=== PATIENT | female | born 1975 | race Caucasian/White ===

== ENCOUNTER 2016-06-19 19:13 | Inpatient (IN) | payer OTHER ==
[2016-06-19] MEDS ORDERED: SODIUM CHLORIDE 0.9% 1,000 ML IV STA (19:38)
[2016-06-19] MEDS ORDERED: ONDANSETRON 4 MG/2 ML VIAL IVP STA (19:38)
[2016-06-19] MEDS ORDERED: HYDROmorphone 1 MG/ML 1 ML SYRINGE IVP STA ×2 (19:38→23:02)
--- NOTE | 2016-06-19 20:00 | ED ---
Abdominal Pain HPI - General Source: patient, RN notes reviewed Mode of arrival: ambulatory Limitations: no limitations <Jade Cee - Last Filed: 06/19/16 22:34> <Roman Solano - Last Filed: 06/19/16 23:14> - General Chief Complaint: Abdominal Pain Stated Complaint: Abd Pain/Vomiting Time Seen by Provider: 06/19/16 19:29 - History of Present Illness Initial Comments: Patient is a 40-year-old female with chief complaint of left sided abdominal pain for approximately 1 evening one episode of vomiting. Patient states that she has had one episode of vomiting earlier today. Patient also reports that she's been battling bronchitis for the past 3 weeks. She sates that she also was diagnosed with a urinary tract infection and proximally 2 weeks ago and is currently placed on Macrobid. Patient reports that she has had a nonproductive cough. She also reports that she is concerned she may have a kidney stones the left-sided pain. Patient has a past medical history significant for dental degenerative disc disease, type 2 diabetes management insulin. Patient reports that her blood sugars have been elevated. (Jade Cee) - Related Data Home Medications Medication Instructions Recorded Confirmed Insulin Regular [humuLIN R] See Protocol SQ-PUMP CONTINUOUS 02/27/14 06/19/16 metFORMIN HCL 1,000 mg PO BID 02/27/14 06/19/16 Morphine Sulfate ER [Ms Contin] 100 mg PO BID 07/14/15 06/19/16 Morphine Sulfate Ir [MSIR] 15 mg PO BID 07/14/15 06/19/16 Morphine Sulfate [Morphine Sulfate] 30 mg PO BID 07/14/15 06/19/16 Montelukast [Singulair] 10 mg PO HS PRN 10/05/15 06/19/16 Nitrofurantoin Monohyd/M-Cryst 100 mg PO BID 06/19/16 06/19/16 [Macrobid] Previous Rx's Medication Instructions Recorded Azithromycin [Zithromax] 250 mg PO DIRECTED #6 tab 06/19/16 Allergies Allergy/AdvReac Type Severity Reaction Status Date / Time albuterol Allergy Unknown Verified 06/19/16 19:51 Cephalosporins Allergy Unknown Verified 06/19/16 19:51 cortisone [Cortisone] Allergy Unknown Verified 06/19/16 19:51 diphenhydramine HCl Allergy Anaphylaxis Verified 06/19/16 19:51 [From Benadryl] doxycycline Allergy Unknown Verified 06/19/16 19:51 Penicillins Allergy Unknown Verified 06/19/16 19:51 Quinolones Allergy Unknown Verified 06/19/16 19:51 Sulfa (Sulfonamide Allergy Unknown Verified 06/19/16 19:51 Antibiotics) Review of Systems ROS Other: All systems not noted in ROS Statement are negative. <Christa Ceeily - Last Filed: 06/19/16 22:34> ROS Other: All systems not noted in ROS Statement are negative. <Roman Solano - Last Filed: 06/19/16 23:14> ROS Statement: Those systems with pertinent positive or pertinent negative responses have been documented in the HPI. Past Medical History Past Medical History: Diabetes Mellitus, Fibromyalgia, Hypertension Additional Past Medical History / Comment(s): DEGENERATIVE DISC DISEASE kidney stones obesity History of Any Multi-Drug Resistant Organisms: MRSA Date of last positivie culture/infection: 2004 MDRO Source:: STOMACH Past Surgical History: Cholecystectomy, Hernia Repair Additional Past Surgical History / Comment(s): CATARACT SURGERY kidne stents Past Psychological History: Anxiety Smoking Status: Never smoker Past Alcohol Use History: None Reported Past Drug Use History: None Reported <Christa Ceeily - Last Filed: 06/19/16 22:34> General Exam Limitations: no limitations General appearance: alert, in no apparent distress Head exam: Present: atraumatic, normocephalic, normal inspection Eye exam: Present: normal appearance, PERRL, EOMI. Absent: scleral icterus, conjunctival injection, periorbital swelling ENT exam: Present: normal exam, mucous membranes moist Neck exam: Present: normal inspection. Absent: tenderness, meningismus, lymphadenopathy Respiratory exam: Present: normal lung sounds bilaterally. Absent: respiratory distress, wheezes, rales, rhonchi, stridor Cardiovascular Exam: Present: regular rate, normal rhythm, normal heart sounds. Absent: systolic murmur, diastolic murmur, rubs, gallop, clicks GI/Abdominal exam: Present: soft, normal bowel sounds. Absent: distended, tenderness, guarding, rebound, rigid Extremities exam: Present: normal inspection, full ROM, normal capillary refill. Absent: tenderness, pedal edema, joint swelling, calf tenderness Back exam: Present: normal inspection Neurological exam: Present: alert, oriented X3, CN II-XII intact Psychiatric exam: Present: normal affect, normal mood Skin exam: Present: warm, dry, intact, normal color. Absent: rash <Jade Cee - Last Filed: 06/19/16 22:34> <Roman Solano - Last Filed: 06/19/16 23:14> - General Exam Comments Initial Comments: Patient is a 40-year-old female. She does appear to be in significant discomfort. (Jade Cee) Medical Decision Making - Lab Data Result diagrams: 06/19/16 20:05 06/19/16 20:05 - Radiology Data Radiology results: report reviewed <Jade Cee - Last Filed: 06/19/16 22:34> - Lab Data Result diagrams: 06/19/16 20:05 06/19/16 20:05 <Roman Solano - Last Filed: 06/19/16 23:14> - Medical Decision Making Medical decision-making. The patient's been on Macrodantin twice in the past month for urinary tract infection. Today she has discomfort when she coughs. CT suggests possible infiltrate posterior left lower lobe. Deep breathing and coughing has increased discomfort in that area. She describes discomfort on the left mid abdomen. CT of the abdomen was done and the radiologist's impression includes a small fatty umbilical hernia with a new fat stranding around the hernia. Cellulitic correlate for inflammation of the hernia or cellulitis. Examination of the area finds a pea-sized incarcerated entity probably the fat mentioned in the CAT scan. Also a foul-smelling odor which will be cultured. Patient will be admitted the hospital diagnosis of abdominal pain, probable incarcerated umbilical hernia, with cellulitis to the umbilicus. Dr. Solano Patient be placed on clindamycin because a cellulitis. I spoke with Dr. Olivas patient be admitted to his service, also spoke to on-call general surgeon Dr. Pablo concerning possible incarcerated umbilical hernia. Very (Roman Solano) - Lab Data Lab Results 06/19/16 06/19/16 06/19/16 Range/Units 20:05 20:05 21:58 WBC 4.6 (3.8-10.6) k/uL RBC 5.56 H (3.80-5.40) m/uL Hgb 15.5 (11.4-16.0) gm/dL Hct 46.6 H (34.0-46.0) % MCV 83.8 (80.0-100.0) fL MCH 27.9 (25.0-35.0) pg MCHC 33.3 (31.0-37.0) g/dL RDW 13.0 (11.5-15.5) % Plt Count 163 (150-450) k/uL Neutrophils % 62 % Lymphocytes % 28 % Monocytes % 7 % Eosinophils % 0 % Basophils % 1 % Neutrophils # 2.9 (1.3-7.7) k/uL Lymphocytes # 1.3 (1.0-4.8) k/uL Monocytes # 0.3 (0-1.0) k/uL Eosinophils # 0.0 (0-0.7) k/uL Basophils # 0.0 (0-0.2) k/uL Sodium 142 (137-145) mmol/L Potassium 4.1 (3.5-5.1) mmol/L Chloride 104 (98-107) mmol/L Carbon Dioxide 26 (22-30) mmol/L Anion Gap 12 mmol/L BUN 13 (7-17) mg/dL Creatinine 0.50 L (0.52-1.04) mg/dL Est GFR (MDRD) Af Amer >60 (>60 ml/min/1.73 sqM) Est GFR (MDRD) Non-Af >60 (>60 ml/min/1.73 sqM) Glucose 224 H (74-99) mg/dL Calcium 9.7 (8.4-10.2) mg/dL Total Bilirubin 0.8 (0.2-1.3) mg/dL AST 313 H (14-36) U/L ALT 177 H (9-52) U/L Alkaline Phosphatase 124 (38-126) U/L Total Protein 7.4 (6.3-8.2) g/dL Albumin 4.0 (3.5-5.0) g/dL Amylase 38 (30-110) U/L Lipase 74 (23-300) U/L Urine Color Dark Yellow Urine Appearance Clear (Clear) Urine pH 5.5 (5.0-8.0) Ur Specific [place] 1.048 H (1.001-1.035) Urine Protein 2+ H (Negative) Urine Glucose (UA) 3+ H (Negative) Urine Ketones Trace H (Negative) Urine Blood Negative (Negative) Urine Nitrate Negative (Negative) Urine Bilirubin Negative (Negative) Urine Urobilinogen <2.0 (<2.0) mg/dL Ur Leukocyte Esterase Negative (Negative) Urine RBC 8 H (0-5) /hpf Urine WBC 8 H (0-5) /hpf Ur Squamous Epith Cells 5 H (0-4) /hpf Urine Bacteria Rare H (None) /hpf Urine Mucus Occasional H (None) /hpf Urine Yeast (Budding) Rare H (None) /hpf - Radiology Data Chest x-ray shows chronic changes and possible chronic bronchitis/asthma. No acute process identified. UB shows there may be a few small air-fluid levels in the lower abdomen and pelvis which may refer like to regional ileus or enteritis. No evidence of bowel obstruction or free intraperitoneal air. There is evidence of scoliosis. (Jade Cee) Disposition Time of Disposition: 22:34 <Jade Cee - Last Filed: 06/19/16 22:34> <Roman Solano - Last Filed: 06/19/16 23:14> Clinical Impression: Pneumonia, Vomiting, Incarcerated umbilical hernia, Cellulitis of umbilicus Disposition: ADMITTED IP TO THIS HOSP Condition: Stable Prescriptions: Azithromycin [Zithromax] 250 mg PO DIRECTED #6 tab Referrals: Marleny Farrell DO [Primary Care Provider] - 1-2 days
--- NOTE | 2016-06-19 20:01 | XR ---
EXAMINATION TYPE: XR chest 2V DATE OF EXAM: 06/19/2016 7:56 PM COMPARISON: 02/09/2016 HISTORY: 40-year-old female with chest pain TECHNIQUE: PA and lateral views FINDINGS: Heart is upper limits of normal in size. Aorta and pulmonary vasculature within normal limits. Some p eribronchial cuffing and interstitial prominence appears unchanged. No consolidation or pleural effus ion. IMPRESSION: Chronic changes, possible chronic bronchitis/asthma. No acute process identified.
--- NOTE | 2016-06-19 20:03 | XR ---
EXAMINATION TYPE: XR KUB DATE OF EXAM: 06/19/2016 7:56 PM CLINICAL DATA: 40-year-old female with abdominal pain, nausea, vomiting, PHH COMPARISON: 12/11/2014 FINDINGS: No evidence for free intraperitoneal air. No dilated small bowel or differential air-fluid levels. A few small air-fluid levels may be present in the lower abdomen and pelvis. There is mild stool burden. Air extends distally into the rectum. Cholecystectomy clips. Rotary levoconvex scoliosis of the spine. IMPRESSION: 1. There may be a a few small air-fluid levels in the lower abdomen and pelvis which could reflect a mild regional ileus or enteritis. 2.No evidence of bowel obstruction or free intraperitoneal air. 3. Scoliosis.
[2016-06-19 20:17] LABS: Basophils % (A) 1 %; CH 28.5; CHCM 34.1; Eosinophils % (A) 0 %; HCT 46.6 % (34.0-46.0); HDW 2.86; HGB 15.5 gm/dL (11.4-16.0); Luc # (Auto) 0.11; Luc % (Auto) 2; Lymphocytes # (A) 1.3 k/uL (1.0-4.8); Lymphocytes % (A) 28 %; MCH 27.9 pg (25.0-35.0); MCHC 33.3 g/dL (31.0-37.0); MCV 83.8 fL (80.0-100.0); Mean Platelet Volume 8.5; Monocytes # (A) 0.3 k/uL (0-1.0); Monocytes % (A) 7 %; Neutrophils # (A) 2.9 k/uL (1.3-7.7); Neutrophils % (A) 62 %; RBC 5.56 m/uL (3.80-5.40); WBC 4.6 k/uL (3.8-10.6); WBC (Perox) 4.44
[2016-06-19 20:26] LABS: ALT 177 U/L (9-52); AST 313 U/L (14-36); Alkaline Phosphatase 124 U/L (38-126); Amylase 38 U/L (30-110); Anion Gap 12 mmol/L; Blood Urea Nitrogen 13 mg/dL (7-17); Calcium 9.7 mg/dL (8.4-10.2); Carbon Dioxide 26 mmol/L (22-30); Chloride 104 mmol/L (98-107); Glucose 224 mg/dL (74-99); Non-African American GFR(MDRD) >60 (>60 ml/min/1.73 sqM); Potassium 4.1 mmol/L (3.5-5.1); Sodium 142 mmol/L (137-145); Total Bilirubin 0.8 mg/dL (0.2-1.3); Total Protein 7.4 g/dL (6.3-8.2)
[2016-06-19] MEDS ORDERED: FAMOTIDINE 20 MG/2 ML VIAL IV STA (21:07)
[2016-06-19] MEDS: RX INFO: IV CONTRAST WAS GIVEN 1 EACH MISC MISCELLANE PRN (21:56)
--- NOTE | 2016-06-19 22:06 | CT ---
EXAMINATION TYPE: CT abdomen pelvis w con DATE OF EXAM: 06/19/2016 9:44 PM COMPARISON: 10/05/2015 HISTORY: 40-year-old female with lower abd pain TECHNIQUE: Contiguous axial scanning of the abdomen and pelvis following administration of 100 ml Omn ipaque 300 IV contrast. Coronal/sagittal reconstructions performed. CT DLP: 2275.40 mGycm Automated exposure control for dose reduction was used. FINDINGS: Heart is normal size without pericardial effusion. There is minimal nodular infiltrate in the posteri or right base, axial image 8. No pleural effusion. No focal liver lesion. Portal venous system is patent. No biliary ductal dilatation. Cholecystectomy clips are present. Right adrenal gland, kidneys, and pancreas appear within normal limits. There is splenomegaly at 18.5 cm, increased from prior with spleen measuring 17.0 cm. Lobulated mass involving the left adrenal gland continues to measure 3.2 cm. Stability suggests a cabrera ign entity such as an adrenal adenoma. No dilated small bowel, free fluid, or free air. Normal appendix. There is mild stool burden without pericolonic inflammatory change. No mesenteric or retroperitoneal lymphadenopathy. Redemonstrated small fatty umbilical hernia. There is new fat stranding around the hernia, axial imag e 75 through 80. Bladder is nondistended. Uterus and ovaries are visualized. No abnormal fluid collection in the pelvi s or pelvic lymphadenopathy seen. Bones: Mild degenerative changes along the superior aspect of the hips. Additional degenerative torres e lower lumbar spine. No osseous destructive process. IMPRESSION: 1. SMALL FATTY UMBILICAL HERNIA WITH NEW FAT STRANDING AROUND THE HERNIA. CORRELATE FOR INFLAMMATION OF THE HERNIA OR CELLULITIS. 2. SOME MILD NODULAR INFILTRATE AT THE POSTERIOR RIGHT BASE. CORRELATE FOR ANY INFECTIOUS SIGNS/SYMPT OMS TO EXCLUDE PNEUMONIA. 3. PROGRESSIVE SPLENOMEGALY (NOW MEASURING 18.5 CM VERSUS 17.0 CM ON 10/05/2015). 4. STABLE 3.2 CM LOBULATED MASS OF THE LEFT ADRENAL GLAND SUGGESTIVE OF AN ADRENAL ADENOMA.
[2016-06-19 22:15] LABS: Appearance,Urine Clear (Clear); Bacteria,Urine Rare /hpf; Bilirubin,Urine Negative (Negative); Glucose,Urine (UA) 3+ (Negative); Ketones,Urine Trace (Negative); Leukocyte Esterase,Urine Negative (Negative); Mucus,Urine Occasional /hpf; Nitrite,Urine Negative (Negative); PH, Urine 5.5 (5.0-8.0); Particle Count 7050; Protein,Urine 2+ (Negative); RBC,Urine 8 /hpf (0-5); Squamous Epithelial Cell,Urine 5 /hpf (0-4); UA Billing (MACRO vs. MICRO) MICRO; Urobilinogen,Urine <2.0 mg/dL (<2.0); WBC,Urine 8 /hpf (0-5)
[2016-06-19 22:19] LABS: Specific Gravity,Urine 1.048 (1.001-1.035)
[2016-06-19] MEDS ORDERED: MUPIROCIN 2% OINT 22 GM TUBE TOPICAL STA (22:59)
[2016-06-19] MEDS ORDERED: METOCLOPRAMIDE 5 MG/ML 2 ML VIAL IVP STA (23:02)
[2016-06-19] MEDS ORDERED: CLINDAMYCIN 600 MG in DEXTROSE 5% IN WATER 50 ML IVPB STA ×2 (23:03)
[2016-06-19] MEDS ORDERED: NALOXONE 0.4 MG/ML 1 ML VIAL IV PRN (23:14)
[2016-06-19] MEDS: SODIUM CHLORIDE 0.9% 1,000 ML IV SCH (23:27)
[2016-06-19] MEDS: MUPIROCIN CALCIUM 2% CREAM 15 GM TUBE TOPICAL SCH (23:32)
[2016-06-20 00:34] LABS: Glucose,Whole Blood 292 mg/dL (75-99)
[2016-06-20] MEDS: SODIUM CHLORIDE 0.9% 1,000 ML IV SCH ×5 (00:50→21:29)
[2016-06-20] MEDS ORDERED: INSPUCOR MISCELLANE PRN (01:02)
[2016-06-20 01:05] LABS: Hemoglobin A1C 11.7 % (4.2-6.1)
[2016-06-20] MEDS: HYDROmorphone 1 MG/ML 1 ML SYRINGE IV PRN ×8 (02:28→23:47)
[2016-06-20 07:21] LABS: Glucose,Whole Blood 167 mg/dL (75-99)
[2016-06-20] MEDS: CLINDAMYCIN 600 MG in DEXTROSE 5% IN WATER 50 ML IVPB SCH ×6 (08:19→23:45)
[2016-06-20] MEDS: ONDANSETRON 4 MG/2 ML VIAL IVP PRN ×3 (08:20→21:08)
[2016-06-20] MEDS: MUPIROCIN CALCIUM 2% CREAM 15 GM TUBE TOPICAL SCH ×3 (08:20→21:09)
[2016-06-20] MEDS ORDERED: INSULIN LISPRO (humaLOG) 300 UNIT/3 ML VIAL SQ SCH (09:00)
--- NOTE | 2016-06-20 11:24 | P.GSCN ---
History of Present Illness Consult date: 06/20/16 Reason for Consult: Surgical eval umbilical hernia Requesting physician: Alexis Patel History of present illness: 48-year-old female obese being seen at the request of the attending for a surgical eval for umbilical hernia. Patient presented to the emergency room on the day of admission with a chief complaint of having left-sided abdominal pain stated that it started one week prior. Patient stated that over the last month has been treated for "bladder infection" stated that she had 2 courses of antibiotic treatment. With no improvement Additionally the patient reports over the last several months has had unintentional weight loss which is concerned has lost 23 pounds without changing her caloric intake. Patient states has been no change in bowel habits Patient's past surgical history according to the patient has had hernia repair years ago is not certain of the surgeon or the timing has had reoccurring umbilical hernia repair a cholecystectomy in the past. Patient does have a significant past medical history of type 2 diabetes insulin requiring uncontrolled hemoglobin A1c 11.9 with the use of an insulin pump , morbid obesity BMI 48 multiple drug ALLERGIES and a recent treatment with 2 courses of antibiotics for a UTI 40-year-old female being seen with the surgeon at the bedside this morning currently is denying any shortness of breath dizziness lightheadedness chest pain. The abdominal wall no redness no cellulitis small umbilical hernia with redness noted around the site no drainage small palpable umbilical hernia with scant amount of drainage no older active bowel tones patient states no frequent stooling umbilical hernia is not incarcerated abdominal wall soft not distended Review of Systems Essentially unremarkable except as mentioned in the present illness Past Medical History Past Medical History: Diabetes Mellitus, Fibromyalgia, Hypertension Additional Past Medical History / Comment(s): DEGENERATIVE DISC DISEASE kidney stones obesity History of Any Multi-Drug Resistant Organisms: MRSA Year Discovered:: 2004 MDRO Source:: STOMACH Past Surgical History: Cholecystectomy, Hernia Repair Additional Past Surgical History / Comment(s): CATARACT SURGERY kidney stents Past Psychological History: Anxiety Smoking Status: Never smoker Past Alcohol Use History: None Reported Past Drug Use History: None Reported Medications and Allergies Home Medications Medication Instructions Recorded Confirmed Type Insulin Regular [humuLIN R] See Protocol SQ-PUMP CONTINUOUS 02/27/14 06/20/16 History metFORMIN HCL 1,000 mg PO BID 02/27/14 06/20/16 History Morphine Sulfate ER [Ms Contin] 100 mg PO BID 07/14/15 06/20/16 History Morphine Sulfate Ir [MSIR] 15 mg PO BID 07/14/15 06/20/16 History Morphine Sulfate [Morphine Sulfate] 30 mg PO BID 07/14/15 06/20/16 History Montelukast [Singulair] 10 mg PO HS PRN 10/05/15 06/20/16 History Nitrofurantoin Monohyd/M-Cryst 100 mg PO BID 06/19/16 06/20/16 History [Macrobid] Benzonatate [Tessalon Perles] 100 mg PO TID 06/20/16 06/20/16 History Allergies Allergy/AdvReac Type Severity Reaction Status Date / Time Cephalosporins Allergy Unknown Verified 06/20/16 00:42 cortisone [Cortisone] Allergy Unknown Verified 06/20/16 00:42 diphenhydramine HCl Allergy Anaphylaxis Verified 06/20/16 00:42 [From Benadryl] doxycycline Allergy Unknown Verified 06/20/16 00:42 Penicillins Allergy Unknown Verified 06/20/16 00:42 Quinolones Allergy Unknown Verified 06/20/16 00:42 Sulfa (Sulfonamide Allergy Unknown Verified 06/20/16 00:42 Antibiotics) Surgical - Exam Vital Signs Temp Pulse Resp BP Pulse Ox 97.6 F 90 18 120/82 95 06/19/16 19:22 06/19/16 19:22 06/19/16 19:22 06/19/16 19:22 06/19/16 19:22 GENERAL APPEARANCE: Morbidly obese 40-year-old female looking older than stated age sitting up in bed talkative alert, oriented, in no acute distress. VITAL SIGNS: Reviewed HEENT: Head is normocephalic and atraumatic. Pupils are equal and reactive. The nares are patent. Oropharynx is clear without lesions. NECK: Supple without lymphadenopathy. Traches midline. HEART: S1, S2. Regular rate and rhythm. No murmur noted denying chest pain LUNGS: No crackles or wheezes are heard. Essentially clear with adequate air movement bilaterally sats on room air 95% ABDOMEN: Soft, nontender, nondistended with good bowel sounds. No redness no evidence of cellulitis umbilical area small redness noted around the site scant amount of drainage noted umbilical shows no evidence of incarcerated hernia No peritoneal signs. No palpable organomegaly or masses. EXTREMITIES: Normal skin color and turgor. No cyanosis, rash, ulceration, clubbing or edema. Radial pedal pulses are 2/4 bilaterally. NEUROLOGICAL: No focal deficits. Strength and sensation are grossly intact. Results - Labs 06/19/16 20:05 06/19/16 20:05 Abnormal Lab Results - Last 24 Hours (Table) 06/20/16 06/20/16 Range/Units 00:31 07:17 POC Glucose (mg/dL) 292 H 167 H (75-99) mg/dL Assessment and Plan Plan: Impression Present on admission abdominal discomfort left lower quadrant with a CAT scan of the abdomen pelvis shows small fatty umbilical hernia with fat strain around the hernia likely inflammation Morbid obesity BMI 48.3 Type 2 diabetes uncontrolled insulin requiring with an insulin pump with a hemoglobin A1c 11.9 Per patient report a recent UTI reoccurring completed 2 courses of antibiotics Patient reports unintentional weight loss Mild cellulitis around the umbilicus resolving Plan Surgeon did discuss with the patient that at this time would avoid surgical intervention secondary to an increased risk in a patient who is a diabetic uncontrolled with an elevated hemoglobin A1c of 11.9 with a recent reoccurring bladder infections would recommend continuing to monitor Would recommend tightened glycemic control life educator to evaluate elevated hemoglobin A1c IV fluid for hydration Pain control DVT and GI prophylaxis continue to monitor surgical course Thank you for allowing us to participate in the surgical management of your patient will follow clinical course closely with recommendations The above dictated assessment and findings were discussed with dr perez Impression and the plan of care have been dictated as directed. Cinthya Gaffney nurse practitioner acting as a scribe for dr perez
[2016-06-20 11:53] LABS: Glucose,Whole Blood 240 mg/dL (75-99)
[2016-06-20 11:56] VITALS: BMI 48.3
[2016-06-20] MEDS ORDERED: ACETAMINOPHEN TAB 325 MG TAB PO PRN (13:11)
[2016-06-20] MEDS: INSULIN LISPRO (humaLOG) 300 UNIT/3 ML VIAL SQ PRN ×2 (13:46→17:43)
[2016-06-20] MEDS ORDERED: CLINDAMYCIN 600 MG in DEXTROSE 5% IN WATER 50 ML IVPB SCH ×2 (15:51)
[2016-06-20] MEDS: metFORMIN 500 MG TAB PO SCH (16:19)
[2016-06-20 17:43] LABS: Glucose,Whole Blood 142 mg/dL (75-99)
[2016-06-20] MEDS: INSULIN LISPRO (humaLOG) 300 UNIT/3 ML VIAL SQ SCH ×2 (17:43→21:10)
[2016-06-20 20:52] LABS: Glucose,Whole Blood 165 mg/dL (75-99)
[2016-06-20] MEDS: INSULIN GLARGINE 100 UNIT/ML 10 ML VIAL SQ SCH (21:09)
[2016-06-21 02:23] LABS: Glucose,Whole Blood 158 mg/dL (75-99)
[2016-06-21] MEDS: ONDANSETRON 4 MG/2 ML VIAL IVP PRN ×3 (04:43→23:54)
[2016-06-21] MEDS: HYDROmorphone 1 MG/ML 1 ML SYRINGE IV PRN ×7 (04:43→23:54)
--- NOTE | 2016-06-21 05:26 | HP ---
DATE OF ADMISSION: CHIEF COMPLAINT: Abdominal pain with nausea, vomiting. HISTORY OF PRESENT ILLNESS: Ms. Carter is a 40-year-old female with past medical history of diabetes mellitus insulin dependent, fibromyalgia, hypertension coming into the hospital complaining of left-sided abdominal pain along with vomiting for the past one day. The patient states that she has had 1 to 2 episodes of vomiting and it was associated with left upper quadrant abdominal pain. So she came into the hospital for further evaluation. The patient denies having any diarrhea ( ). The patient states she has been having cough with productive sputum for the past 3 weeks and also states that she was recently diagnosed with urinary tract infection and is currently on Macrobid. Patient's cough has been mostly dry, but produces sputum occasionally. Patient has type 2 diabetes mellitus, insulin dependent. She is on insulin pump. Patient also mentions that her blood sugars have been elevated. REVIEW OF SYSTEMS: CONSTITUTIONAL: Denies having any fevers, chills or rigors. RESPIRATORY: As per HPI. CARDIOVASCULAR: No chest pain or palpitations. GI: As per HPI. : The patient having dysuria, but currently asymptomatic. DRAPERY OPERATOR: Patient denies having any headaches, loss of consciousness or seizure-like activity. ENDOCRINE: Positive for diabetes mellitus. MUSCULOSKELETAL: Patient has history of fibromyalgia. PSYCHIATRIC: No history of depression, positive for anxiety All 13 review of systems are done and are negative except for ones mentioned in the HPI. PAST MEDICAL HISTORY: Significant for diabetes mellitus on insulin pump, fibromyalgia, hypertension. PAST SURGICAL HISTORY: Cholecystectomy, hernia repair. Patient's allergies: CEPHALOSPORIN, CORTISONE, BENADRYL, DOXYCYCLINE, PENICILLIN, QUINOLONES, SULFA DRUGS. Patient's home medications: 1. Metformin 1000 mg p.o. b.i.d. 2. Insulin pump. 3. Morphine 30 mg p.o. b.i.d. 4. Morphine IR 15 mg p.o. b.i.d. 5. Morphine sulfate ER 100 mg p.o. b.i.d. 6. Singulair 10 mg p.o. q.h.s. 7. Macrobid 100 mg p.o. b.i.d. 8. Tessalon Perles 100 mg p.o. t.i.d. SOCIAL HISTORY: Denies having any history of smoking. Occasional alcohol use. No history of drug use. FAMILY HISTORY: Denies history stroke or coronary artery disease. The patient's vitals: Temperature 97.6, heart rate 90, respiratory rate 18, blood pressure 120/82, saturating at 95% on room air. GENERAL EXAMINATION: Patient appears to be no acute distress. HEAD: Atraumatic, normocephalic. EYES: Pupils round and reactive to light. NECK: No JVD. No thyromegaly. RESPIRATORY: Bilateral breath sounds are positive. No wheezes or crackles. A few coarse breath sounds heard. CARDIOVASCULAR: S1, S2 heard. No additional sounds. GI: Abdomen is soft. Positive for mild tenderness in the left upper quadrant. Patient has mild discharge from her umbilicus. EXTREMITIES: No edema. No cyanosis. Peripheral pulses felt. DRAPERY OPERATOR: Alert, awake, oriented x3. No focal deficits. PSYCHIATRIC: Appropriate mood and affect. SKIN: No rashes. PATIENT'S LABS: White count of 4.6, hemoglobin is 15.5, platelets of 163. Sodium 142, potassium 4.1, chloride 104, bicarb 26, BUN 13, creatinine 0.50. AST 313, ALT 177. Amylase 38, lipase 74. Hemoglobin A1c 11.7. Urine positive for occasional mucus and 3+ glucose with negative esterase and negative nitrates. Patient also had a CAT scan of the abdomen and pelvis which was showing small umbilical hernia with new fat stranding on which might be related ( ) inflammation of the hernia or cellulitis; a mild nodular infiltrate at the posterior right base; progressive splenomegaly and 3.2 cm lobulated mass of the left adrenal gland suggestive of adrenal adenoma. ASSESSMENT AND PLAN: 1. Abdominal pain, mostly in the left upper quadrant unclear etiology. The patient also had one episode of vomiting, but no diarrhea. CT scan of the abdomen showing 3.2 cm lobulated mass of the left adrenal gland suggestive of an adrenal adenoma. 2. Posterior right lung base infiltrate suggestive of pneumonia. Patient has symptoms of cough and failed outpatient therapy so we will continue with clindamycin in view of her multiple drug allergies for now. 3. Elevated liver enzymes. The patient states that her liver enzymes are elevated and is being worked up by Dr. Bernstein for it. 4. Type 2 diabetes mellitus. Continue with insulin pump. 5. Umbilical cellulitis. PLAN: As above. Will continue with her current medication regimen. Will see how the patient responds to the treatment and recommendations to follow depending on the progress of the patient.
[2016-06-21 06:45] LABS: Glucose,Whole Blood 159 mg/dL (75-99)
[2016-06-21] MEDS: metFORMIN 500 MG TAB PO SCH ×2 (08:12→16:13)
[2016-06-21] MEDS: MUPIROCIN CALCIUM 2% CREAM 15 GM TUBE TOPICAL SCH ×3 (08:18→20:59)
[2016-06-21] MEDS: INSULIN LISPRO (humaLOG) 300 UNIT/3 ML VIAL SQ SCH ×4 (08:18→20:59)
[2016-06-21] MEDS: SODIUM CHLORIDE 0.9% 1,000 ML IV SCH ×3 (08:19→23:56)
[2016-06-21] MEDS: CLINDAMYCIN 600 MG in DEXTROSE 5% IN WATER 50 ML IVPB SCH ×6 (09:13→23:54)
[2016-06-21 10:59] LABS: Basophils % (A) 0 %; CH 28.1; CHCM 31.9; Eosinophils % (A) 0 %; HCT 43.9 % (34.0-46.0); HDW 2.73; Luc # (Auto) 0.07; Luc % (Auto) 2; Lymphocytes # (A) 1.4 k/uL (1.0-4.8); Lymphocytes % (A) 29 %; MCH 28.2 pg (25.0-35.0); MCHC 31.9 g/dL (31.0-37.0); MCV 88.5 fL (80.0-100.0); Mean Platelet Volume 8.6; Monocytes # (A) 0.4 k/uL (0-1.0); Monocytes % (A) 8 %; Neutrophils # (A) 2.9 k/uL (1.3-7.7); Neutrophils % (A) 61 %; RBC 4.96 m/uL (3.80-5.40); RDW 13.1 % (11.5-15.5); WBC 4.7 k/uL (3.8-10.6); WBC (Perox) 4.87
[2016-06-21 11:28] LABS: Anion Gap 12 mmol/L; Blood Urea Nitrogen 11 mg/dL (7-17); Calcium 8.9 mg/dL (8.4-10.2); Carbon Dioxide 21 mmol/L (22-30); Chloride 103 mmol/L (98-107); Glucose 246 mg/dL (74-99); Non-African American GFR(MDRD) >60 (>60 ml/min/1.73 sqM); Potassium 4.3 mmol/L (3.5-5.1); Sodium 136 mmol/L (137-145)
[2016-06-21 12:21] LABS: Glucose,Whole Blood 227 mg/dL (75-99)
[2016-06-21 16:51] LABS: Glucose,Whole Blood 257 mg/dL (75-99)
[2016-06-21] MEDS: INSULIN GLARGINE 100 UNIT/ML 10 ML VIAL SQ SCH (20:58)
[2016-06-21] MEDS: BENZONATATE 100 MG CAP PO SCH (20:59)
[2016-06-21 21:05] LABS: Glucose,Whole Blood 237 mg/dL (75-99)
[2016-06-22 02:05] LABS: Glucose,Whole Blood 220 mg/dL (75-99)
[2016-06-22] MEDS: HYDROmorphone 1 MG/ML 1 ML SYRINGE IV PRN ×4 (03:09→12:18)
[2016-06-22 06:41] LABS: Glucose,Whole Blood 235 mg/dL (75-99)
[2016-06-22] MEDS: SODIUM CHLORIDE 0.9% 1,000 ML IV SCH (07:17)
[2016-06-22 07:30] VITALS: BP 140/85; PULSE 74; RESP 16; TEMP 96.6
[2016-06-22] MEDS ORDERED: PANTOPRAZOLE 40 MG TABLET PO SCH (07:30)
--- NOTE | 2016-06-22 07:44 | PN ---
DATE OF SERVICE: 06/21/2016 INTERVAL HISTORY: Ms. Carter is a 40-year-old female with a past medical history of diabetes mellitus insulin-dependent on insulin pump, fibromyalgia, hypertension, coming into the hospital with a chief complaint of left-sided abdominal pain along with vomiting for the past couple of days. The patient states that she has pain in the left lower and upper abdominal region. The patient did get a CAT scan of her abdomen and pelvis which was showing a small umbilical hernia with cellulitis and a small nodular infiltrate at the posterior right base and a stable 3.2 cm lobulated mass of the left adrenal gland, which is suggestive of adrenal adenoma. The patient also has elevated liver enzymes. As the patient has multiple drug allergies, she is currently on clindamycin for possible lung infiltrate that is seen on the CAT scan. Today, the patient states that her abdominal pain is still the same but no nausea or vomiting. She has a cough, nonproductive. Patient mentions that she follows with Dr. Javier ) in the [facility] for elevated liver function tests. Patient denies having any fevers, chills, or rigors. No chest pain. No diarrhea or constipation. She is on an insulin pump for her diabetes mellitus. Patient's medications have been reviewed. She is on Tylenol, Tessalon Perles, clindamycin, Dilaudid, Lantus, sliding scale, Metformin, mupirocin topical, Narcan, Zofran Protonix, IV fluids at 125 mL VITAL SIGNS: Temperature 97, heart rate 81, respiratory rate 16, blood pressure 125/79, saturating at 94% on room air. On examination, patient is morbidly obese, sitting on the bed, appears to be in no acute distress. HEAD: Atraumatic, normocephalic. Pupils round and reactive to light. Neck is short. No palpable masses. CARDIOVASCULAR: S1, S2 heard. LUNGS: Distant breath sounds heard bilaterally. No wheezes or crackles. GI: Abdomen is positive for tenderness in the right upper and lower quadrant as the patient is morbidly obese the physical findings are difficult to localize her pain. Patient has mild discharge from her umbilicus, but this has improved compared to yesterday. EXTREMITIES: No edema. No cyanosis. Peripheral pulses felt. BATCH ROOM TECHNICIAN: Alert, awake, oriented x3. No focal neurological deficits. PSYCHIATRIC: Appropriate mood and affect. PATIENT'S LABS: White count of 4.7, hemoglobin 14, platelets are 156. Sodium 136, potassium 4.3, chloride 103, bicarb 21, BUN 11, creatinine 0.54. ASSESSMENT AND PLAN: 1. Abdominal pain, mostly in the left upper and lower quadrants, unclear etiology. Patient's nausea and vomiting did resolve. CAT scan was showing 3.2 cm lobulate mass of the left adrenal gland suggestive of adrenal adenoma. 2. Posterior lung infiltrate suggestive of pneumonia. The patient has symptoms of cough and failed outpatient therapy so we will continue with clindamycin in view of her multiple drug allergies for now. 3. Elevated liver enzymes. The patient states that her LFTs have been elevated in the past and is being worked up by ( ) and so GI has been consulted. 4. Type 2 diabetes mellitus continued with insulin pump. 5. Umbilical cellulitis. PLAN: The plan is to continue with the above regimen and to see how the patient responds to current treatment and further recommendations to follow depending on the progress of the patient.
[2016-06-22 08:38] LABS: ALT 79 U/L (9-52); AST 31 U/L (14-36); Alkaline Phosphatase 78 U/L (38-126); Anion Gap 7 mmol/L; Blood Urea Nitrogen 10 mg/dL (7-17); Calcium 8.9 mg/dL (8.4-10.2); Carbon Dioxide 30 mmol/L (22-30); Chloride 101 mmol/L (98-107); Glucose 253 mg/dL (74-99); Non-African American GFR(MDRD) >60 (>60 ml/min/1.73 sqM); Potassium 4.5 mmol/L (3.5-5.1); Sodium 138 mmol/L (137-145); Total Bilirubin 0.7 mg/dL (0.2-1.3); Total Protein 6.1 g/dL (6.3-8.2)
[2016-06-22] MEDS: CLINDAMYCIN 600 MG in DEXTROSE 5% IN WATER 50 ML IVPB SCH ×2 (09:06)
[2016-06-22] MEDS: metFORMIN 500 MG TAB PO SCH (09:08)
[2016-06-22] MEDS: ONDANSETRON 4 MG/2 ML VIAL IVP PRN (09:08)
[2016-06-22] MEDS: INSULIN LISPRO (humaLOG) 300 UNIT/3 ML VIAL SQ SCH ×2 (09:08→12:18)
[2016-06-22] MEDS: BENZONATATE 100 MG CAP PO SCH (09:08)
[2016-06-22] MEDS: MUPIROCIN CALCIUM 2% CREAM 15 GM TUBE TOPICAL SCH (09:09)
--- NOTE | 2016-06-22 09:32 | P.CONS ---
History of Present Illness - Reason for Consult Consult date: 06/22/16 Elevated liver enzymes Requesting physician: Jeniffer Park - History of Present Illness 40-year-old female patient of Dr. Farrell with a past medical history of morbid obesity BMI 48.3, transaminitis, insulin-dependent diabetes mellitus poorly controlled, hypertension, fibromyalgia. Admitted with left-sided abdominal pain nausea vomiting and cough. Consultation requested for elevated liver enzymes. She has a history of transaminitis with liver biopsy and has been followed by Lora RICHARDS. No history of alcohol abuse or hepatitis. Patient states transaminases felt to be related to nonalcoholic fatty liver disease/MAX. Admission total bilirubin 0.8. AST 313. ALT 177. Alkaline phosphate is 124. Lipase 74. Amylase 38. Transaminases in September 2015 were within normal limits. Today total bilirubin 0.7. AST 31. ALT 79. Alkaline phosphatase 78. No changes in her home medications. Upon review of hospitalization she is placed on clindamycin for suspected cellulitis/periumbilical hernia. Afebrile. CT abdomen and pelvis reported small fatty umbilical hernia with fat stranding possible cellulitis. Splenomegaly 18.5 cm. Left Adrenal adenoma stable 3.2 cm. Review of Systems Constitutional: Denies fever, chills, sweats, weight gain, or loss. HEENT: Negative for migraines, blurred vision or loss, earaches, drainage, tinnitus, oral mucosal lesions, dysphagia, or odynophagia. CARDIAC: Hypertension. Negative for chest pain, arrhythmias, or palpitation. RESPIRATORY: Negative for shortness of breath, hemoptysis, cough, or sputum production. GI: See HPI for pertinent findings. : Negative for hematuria, urgency, frequency, polyuria, or dysuria. GYNc: Denies possibility of . Negative vaginal discharge. MUSCULOSKELETAL: Fibromyalgia. Negative for muscle aches, swelling, arthritis, and arthralgias. NEUROLOGIC: Negative for stroke or TIA. ENDOCRINE: Insulin-dependent diabetes mellitus. Negative for thyroid problems. SKIN: Negative for rash or itching. PSYCHIATRIC: Negative history for depression and anxiety All systems: negative (See HPI) Past Medical History Past Medical History: Diabetes Mellitus, Fibromyalgia, Hypertension Additional Past Medical History / Comment(s): DEGENERATIVE DISC DISEASE kidney stones obesity History of Any Multi-Drug Resistant Organisms: MRSA Year Discovered:: 07/04/01 MDRO Source:: Unknown Past Surgical History: Cholecystectomy, Hernia Repair Additional Past Surgical History / Comment(s): CATARACT SURGERY kidney stents Past Psychological History: Anxiety Smoking Status: Never smoker Past Alcohol Use History: None Reported Past Drug Use History: None Reported Medications and Allergies Home Medications Medication Instructions Recorded Confirmed Type Insulin Regular [humuLIN R] See Protocol SQ-PUMP CONTINUOUS 02/27/14 06/20/16 History metFORMIN HCL 1,000 mg PO BID 02/27/14 06/20/16 History Morphine Sulfate ER [Ms Contin] 100 mg PO BID 07/14/15 06/20/16 History Morphine Sulfate Ir [MSIR] 15 mg PO BID 07/14/15 06/20/16 History Morphine Sulfate [Morphine Sulfate] 30 mg PO BID 07/14/15 06/20/16 History Montelukast [Singulair] 10 mg PO HS PRN 10/05/15 06/20/16 History Nitrofurantoin Monohyd/M-Cryst 100 mg PO BID 06/19/16 06/20/16 History [Macrobid] Benzonatate [Tessalon Perles] 100 mg PO TID 06/20/16 06/20/16 History Allergies Allergy/AdvReac Type Severity Reaction Status Date / Time Cephalosporins Allergy Unknown Verified 06/20/16 00:42 cortisone [Cortisone] Allergy Unknown Verified 06/20/16 00:42 diphenhydramine HCl Allergy Anaphylaxis Verified 06/20/16 00:42 [From Benadryl] doxycycline Allergy Unknown Verified 06/20/16 00:42 Penicillins Allergy Unknown Verified 06/20/16 00:42 Quinolones Allergy Unknown Verified 06/20/16 00:42 Sulfa (Sulfonamide Allergy Unknown Verified 06/20/16 00:42 Antibiotics) Physical Exam Vitals: Vital Signs Temp Pulse Resp BP Pulse Ox 06/22/16 07:00 96.6 F L 74 16 140/85 97 06/21/16 23:00 98.4 F 78 20 113/61 95 06/21/16 16:00 81 16 06/21/16 15:00 97.0 F L 81 16 125/79 94 L Intake and Output 06/21/16 06/22/16 06/22/16 22:59 06:59 14:59 Intake Total 200 Balance 200 Intake: Oral 200 Other: Voiding Method Toilet Toilet # Voids 1 1 General appearance: The patient is alert, oriented, in no acute distress. HET: Head is normocephalic and atraumatic. Pupils are equal and reactive. Oropharynx is clear without lesions. Neck: Supple without lymphadenopathy. Trachea midline. Heart: S1 S2. Regular rate and rhythm. Lungs: No crackles or wheezes are heard. Abdomen: Soft, mild diffuse tenderness around the periumbilical area without erythema or visible/palpable bulge, nondistended with bowel sounds. No peritoneal signs. No palpable organomegaly or masses. Extremities: Normal skin color and turgor. No cyanosis, rash, ulceration, clubbing, or edema. Radial and pedal pulses are 2/4 bilaterally. Neurological: No focal deficits. Strength and sensation are grossly intact. Results CBC & Chem 7: 06/21/16 10:29 06/22/16 08:00 Labs: Abnormal Lab Results - Last 24 Hours (Table) 06/21/16 06/21/16 06/21/16 Range/Units 10:29 12:11 16:49 Sodium 136 L (137-145) mmol/L Carbon Dioxide 21 L (22-30) mmol/L Glucose 246 H (74-99) mg/dL POC Glucose (mg/dL) 227 H 257 H (75-99) mg/dL ALT (9-52) U/L Total Protein (6.3-8.2) g/dL Albumin (3.5-5.0) g/dL 06/21/16 06/22/16 06/22/16 Range/Units 20:54 02:04 06:40 Sodium (137-145) mmol/L Carbon Dioxide (22-30) mmol/L Glucose (74-99) mg/dL POC Glucose (mg/dL) 237 H 220 H 235 H (75-99) mg/dL ALT (9-52) U/L Total Protein (6.3-8.2) g/dL Albumin (3.5-5.0) g/dL 06/22/16 Range/Units 08:00 Sodium (137-145) mmol/L Carbon Dioxide (22-30) mmol/L Glucose 253 H (74-99) mg/dL POC Glucose (mg/dL) (75-99) mg/dL ALT 79 H (9-52) U/L Total Protein 6.1 L (6.3-8.2) g/dL Albumin 3.2 L (3.5-5.0) g/dL CT scan - abdomen: report reviewed CT scan - pelvis: report reviewed (Reviewed by Dr. Villarreal) Assessment and Plan (1) Transaminitis Narrative/Plan: 40-year-old female admitted with acute abdominal pain nausea vomiting cough with a history of transaminitis liver biopsy with reported nonalcoholic fatty liver disease possible MAX with isolated episode of transaminitis possible medication induced with marked improvement. Status: Acute Plan: 1. Transaminases improving therefore continue with observation. No further workup at this time. We'll follow as needed. We'll defer to general surgery medicine for discharge. Diet as tolerated. Thank you for this kind referral and the opportunity to participate in the care of your patient. This consultation was discussed with Dr. Villarreal. The impression and plan of care have been directed as dictated.
[2016-06-22 11:59] LABS: Glucose,Whole Blood 245 mg/dL (75-99)
--- NOTE | 2016-06-23 08:00 | DS ---
DATE OF ADMISSION: 06/19/2016 DATE OF DISCHARGE: 06/22/2016 patient is a 40-year-old female who came in with abdominal pain. Surgery evaluated the patient and they believe it is secondary to inflammation of the fat layer around the inguinal hernia area. Patient is complaining of dysuria, although she says this dysuria has been there for a while and patient's urine cultures are positive, showing gram-negative bacilli as well as gram-positive bacilli because of which patient is on clindamycin. Patient is afebrile. Does not have any leukocytosis. I will discharge her on clindamycin and will follow her urine cultures. Patient is allergic to multiple medications. Patient has adrenal adenoma which is being followed by Urology as per the patient. Patient will be discharged today. Patient is clinically stable to be discharged. Patient although is morbidly obese. Patient was seen and examined on the day of discharge. Vitals are stable. PHYSICAL EXAMINATION: GENERAL: The patient is alert and oriented x3, not in any acute distress. Well developed, well nourished. HEENT: Pupils are round and equally reacting to light. EOMI. No scleral icterus. No conjunctival pallor. Normocephalic, atraumatic. No pharyngeal erythema. No thyromegaly. CARDIOVASCULAR: S1 and S2 present. No murmurs, rubs, or gallops. PULMONARY: Chest is clear to auscultation, no wheezing or crackles. ABDOMEN: Patient does have some nonspecific diffuse abdominal tenderness. MUSCULOSKELETAL: No joint swelling or deformity. EXTREMITIES: No cyanosis, clubbing, or pedal edema. NEUROLOGICAL: Gross neurological examination did not reveal any focal deficits. SKIN: No rashes. ASSESSMENT: 1. Patient has possibility of infiltrate in the posterior lung for which pneumonia cannot be ruled out. Gentamicin should help. 2. Elevated liver enzymes secondary to nonalcoholic steatohepatitis. 3. Type 2 diabetes mellitus. Patient has an insulin pump for that. 4. Morbid obesity. Patient will be discharged today. Please refer to my depart summary for further details of discharge medications. Activity as tolerated. Cardiac and diabetic 1800 calorie diet. Spent greater than 35 minutes in total discharge process.
== END 2016-06-22 14:03 | disposition home or self-care (01) | DRG 602 ==
LOC: EC 19:13 → 4MS4W 23:14
PROVIDERS: ADMIT Internal Medicine; ATTEND Internal Medicine
DX: L03.316 Cellulitis of umbilicus (principal); J18.9 Pneumonia, unspecified organism; Z68.42 Body mass index [BMI] 45.0-49.9, adult; E11.65 Type 2 diabetes mellitus with hyperglycemia; E66.01 Morbid (severe) obesity due to excess calories; K42.0 Umbilical hernia with obstruction, without gangrene; K75.81 Nonalcoholic steatohepatitis (NASH); N39.0 Urinary tract infection, site not specified; I10 Essential (primary) hypertension; D35.02 Benign neoplasm of left adrenal gland; M79.7 Fibromyalgia; Z79.4 Long term (current) use of insulin; Z87.442 Personal history of urinary calculi; Z96.41 Presence of insulin pump (external) (internal); Z88.1 Allergy status to other antibiotic agents; Z88.0 Allergy status to penicillin; Z88.2 Allergy status to sulfonamides; Z79.84 Long term (current) use of oral hypoglycemic drugs; Z79.899 Other long term (current) drug therapy
CPT/HCPCS: 36415; 71020; 74000; 74177; 80048; 80053; 81001; 82150; 83036; 83690; 85025; 87070; 87205; 96361; 96365; 96375; 96376; 99285

== ENCOUNTER 2016-06-23 19:52 | Observation (INO) | payer OTHER ==
[2016-06-23] MEDS ORDERED: SODIUM CHLORIDE 0.9% 1,000 ML IV ONE (20:34)
[2016-06-23] MEDS ORDERED: HYDROmorphone 1 MG/ML 1 ML SYRINGE IVP STA (20:34)
[2016-06-23] MEDS ORDERED: ONDANSETRON 4 MG/2 ML VIAL IVP STA (20:34)
--- NOTE | 2016-06-23 20:38 | ED ---
Abdominal Pain HPI <Bart Mancini - Last Filed: 06/23/16 22:49> - General Source: patient, RN notes reviewed Mode of arrival: ambulatory Limitations: no limitations <Farhana Gaffney - Last Filed: 06/24/16 03:43> - General Chief Complaint: Abdominal Pain Stated Complaint: Vomiting Time Seen by Provider: 06/23/16 20:11 - History of Present Illness Initial Comments: Patient is a 40-year-old female presents to the emergency room for evaluation of abdominal pain. Patient states she was recently admitted on Monday for possible incarcerated umbilical hernia, pneumonia and urinary tract infection. Patient states they discharged her yesterday. Patient states that she still continuing to have abdominal pain. Patient states she told them before discharge she was still having pain and they sent her home anyways. Patient states she's followed up with her primary care provider earlier today and she was told to come to the emergency room she still having abdominal pain. Patient states she began nausea and vomiting again today. Patient states she can't keep anything down. Patient states having constant cramping/sharp pain going through her entire abdomen. Patient states she has a history of cholecystectomy and umbilical hernia repair. Patient denies constipation or diarrhea. Patient states that the coughing and shortness of breath has improved from diagnosis of pneumonia. Patient states she still experiencing pain and burning while urinating. (Farhana Gaffney) - Related Data Home Medications Medication Instructions Recorded Confirmed Insulin Regular [humuLIN R] See Protocol SQ-PUMP CONTINUOUS 02/27/14 06/23/16 metFORMIN HCL 1,000 mg PO BID 02/27/14 06/23/16 Morphine Sulfate ER [Ms Contin] 100 mg PO BID 07/14/15 06/23/16 Morphine Sulfate Ir [MSIR] 15 mg PO BID 07/14/15 06/23/16 Morphine Sulfate [Morphine Sulfate] 30 mg PO BID 07/14/15 06/23/16 Montelukast [Singulair] 10 mg PO HS PRN 10/05/15 06/23/16 Benzonatate [Tessalon Perles] 100 mg PO TID 06/20/16 06/23/16 Previous Rx's Medication Instructions Recorded Clindamycin [Cleocin] 450 mg PO Q6H #28 capsule 06/22/16 Allergies Allergy/AdvReac Type Severity Reaction Status Date / Time Cephalosporins Allergy Unknown Verified 06/23/16 20:17 cortisone [Cortisone] Allergy Unknown Verified 06/23/16 20:17 diphenhydramine HCl Allergy Anaphylaxis Verified 06/23/16 20:17 [From Benadryl] doxycycline Allergy Unknown Verified 06/23/16 20:17 Penicillins Allergy Unknown Verified 06/23/16 20:17 Quinolones Allergy Unknown Verified 06/23/16 20:17 Sulfa (Sulfonamide Allergy Unknown Verified 06/23/16 20:17 Antibiotics) Review of Systems ROS Other: All systems not noted in ROS Statement are negative. <Bart Mancini - Last Filed: 06/23/16 22:49> ROS Other: All systems not noted in ROS Statement are negative. <Farhana Gaffney - Last Filed: 06/24/16 03:43> ROS Statement: Those systems with pertinent positive or pertinent negative responses have been documented in the HPI. Past Medical History Past Medical History: Diabetes Mellitus, Fibromyalgia, Hypertension Additional Past Medical History / Comment(s): DEGENERATIVE DISC DISEASE kidney stones obesity History of Any Multi-Drug Resistant Organisms: MRSA Date of last positivie culture/infection: 07/04/01 MDRO Source:: Unknown Past Surgical History: Cholecystectomy, Hernia Repair Additional Past Surgical History / Comment(s): CATARACT SURGERY kidney stents Past Psychological History: Anxiety Smoking Status: Never smoker Past Alcohol Use History: None Reported Past Drug Use History: None Reported <Farhana Gaffney - Last Filed: 06/24/16 03:43> General Exam <Bart Mancini - Last Filed: 06/23/16 22:49> Limitations: no limitations General appearance: alert, in no apparent distress Head exam: Present: atraumatic, normocephalic, normal inspection Eye exam: Present: normal appearance ENT exam: Present: normal exam Neck exam: Present: normal inspection Respiratory exam: Present: normal lung sounds bilaterally. Absent: respiratory distress Cardiovascular Exam: Present: regular rate, normal rhythm, normal heart sounds GI/Abdominal exam: Present: soft, tenderness (Diffuse tenderness on palpation), normal bowel sounds. Absent: distended, guarding, rebound, rigid Extremities exam: Present: normal inspection Back exam: Present: normal inspection Neurological exam: Present: alert, oriented X3, CN II-XII intact, normal gait Psychiatric exam: Present: normal affect, normal mood Skin exam: Present: warm, dry, intact, normal color. Absent: rash <Farhana Gaffney - Last Filed: 06/24/16 03:43> - General Exam Comments Initial Comments: Laying in exam room in no acute distress. (Farhana Gaffney) Medical Decision Making - Lab Data Result diagrams: 06/23/16 21:00 06/23/16 21:00 <Bart Mancini - Last Filed: 06/23/16 22:49> - Lab Data Result diagrams: 06/23/16 21:00 06/23/16 21:00 - Radiology Data Radiology results: report reviewed, image reviewed <Farhana Gaffney - Last Filed: 06/24/16 03:43> - Medical Decision Making Patient reevaluated by myself, Dr. Mancini. Patient has been on antibiotics. Patient has discomfort with bowel movements and states she is having approximately one daily. Patient has worsening abdominal discomfort over the past 7-10 days. Abdomen is soft with mild to moderate midabdominal pain bilaterally. Patient updated on results. Patient is not comfortable with discharge home. Case discussed with practitioner Chari bullock, who will admit for Dr. Klein. Patient was recently discharged by Dr. Leger (aBrt Mancini) Patient is a 40-year-old female presents emergency room for evaluation of abdominal pain. Patient was recently discharged. Case discussed with Dr. Mancini. Dr. Mancini also evaluated patient. Dr. Mancini discussed case with Chari bullock who agreed to admit for Dr. Klein. (Farhana Gaffney) - Lab Data Lab Results 06/23/16 06/23/16 06/23/16 Range/Units 21:00 21:00 22:30 WBC 5.8 (3.8-10.6) k/uL RBC 5.34 (3.80-5.40) m/uL Hgb 15.0 (11.4-16.0) gm/dL Hct 46.1 H (34.0-46.0) % MCV 86.2 (80.0-100.0) fL MCH 28.0 (25.0-35.0) pg MCHC 32.5 (31.0-37.0) g/dL RDW 13.3 (11.5-15.5) % Plt Count 214 (150-450) k/uL Neutrophils % 60 % Lymphocytes % 30 % Monocytes % 7 % Eosinophils % 1 % Basophils % 1 % Neutrophils # 3.5 (1.3-7.7) k/uL Lymphocytes # 1.7 (1.0-4.8) k/uL Monocytes # 0.4 (0-1.0) k/uL Eosinophils # 0.1 (0-0.7) k/uL Basophils # 0.0 (0-0.2) k/uL Sodium 139 (137-145) mmol/L Potassium 4.5 (3.5-5.1) mmol/L Chloride 99 (98-107) mmol/L Carbon Dioxide 30 (22-30) mmol/L Anion Gap 10 mmol/L BUN 10 (7-17) mg/dL Creatinine 0.70 (0.52-1.04) mg/dL Est GFR (MDRD) Af Amer >60 (>60 ml/min/1.73 sqM) Est GFR (MDRD) Non-Af >60 (>60 ml/min/1.73 sqM) Glucose 290 H (74-99) mg/dL Calcium 9.8 (8.4-10.2) mg/dL Total Bilirubin 0.7 (0.2-1.3) mg/dL AST 26 (14-36) U/L ALT 68 H (9-52) U/L Alkaline Phosphatase 80 (38-126) U/L Total Protein 7.3 (6.3-8.2) g/dL Albumin 4.0 (3.5-5.0) g/dL Amylase <30 L (30-110) U/L Lipase 59 (23-300) U/L Urine Color Yellow Urine Appearance Cloudy H (Clear) Urine pH 5.5 (5.0-8.0) Ur Specific [place] 1.031 (1.001-1.035) Urine Protein 2+ H (Negative) Urine Glucose (UA) 4+ H (Negative) Urine Ketones Trace H (Negative) Urine Blood Negative (Negative) Urine Nitrate Negative (Negative) Urine Bilirubin Negative (Negative) Urine Urobilinogen <2.0 (<2.0) mg/dL Ur Leukocyte Esterase Negative (Negative) Urine RBC 4 (0-5) /hpf Urine WBC 2 (0-5) /hpf Ur Squamous Epith Cells 5 H (0-4) /hpf Hyaline Casts 6 H (0-2) /lpf Urine Mucus Few H (None) /hpf Disposition <Bart Mancini - Last Filed: 06/23/16 22:49> Decision Date: 06/23/16 <Farhana Gaffney - Last Filed: 06/24/16 03:43> Clinical Impression: Abdominal pain Disposition: ADMITTED IP TO THIS HOSP Condition: Stable
[2016-06-23 21:16] LABS: Basophils % (A) 1 %; CH 28.6; CHCM 33.2; Eosinophils # (A) 0.1 k/uL (0-0.7); Eosinophils % (A) 1 %; HCT 46.1 % (34.0-46.0); HDW 2.75; Luc # (Auto) 0.13; Luc % (Auto) 2; Lymphocytes # (A) 1.7 k/uL (1.0-4.8); Lymphocytes % (A) 30 %; MCHC 32.5 g/dL (31.0-37.0); MCV 86.2 fL (80.0-100.0); Mean Platelet Volume 8.1; Monocytes # (A) 0.4 k/uL (0-1.0); Monocytes % (A) 7 %; Neutrophils # (A) 3.5 k/uL (1.3-7.7); Neutrophils % (A) 60 %; RBC 5.34 m/uL (3.80-5.40); RDW 13.3 % (11.5-15.5); WBC 5.8 k/uL (3.8-10.6); WBC (Perox) 6.09
[2016-06-23 21:29] LABS: ALT 68 U/L (9-52); AST 26 U/L (14-36); Alkaline Phosphatase 80 U/L (38-126); Amylase <30 U/L (30-110); Anion Gap 10 mmol/L; Blood Urea Nitrogen 10 mg/dL (7-17); Calcium 9.8 mg/dL (8.4-10.2); Carbon Dioxide 30 mmol/L (22-30); Chloride 99 mmol/L (98-107); Glucose 290 mg/dL (74-99); Non-African American GFR(MDRD) >60 (>60 ml/min/1.73 sqM); Potassium 4.5 mmol/L (3.5-5.1); Sodium 139 mmol/L (137-145); Total Bilirubin 0.7 mg/dL (0.2-1.3); Total Protein 7.3 g/dL (6.3-8.2)
--- NOTE | 2016-06-23 22:09 | XR ---
EXAMINATION TYPE: XR KUB DATE OF EXAM: 06/23/2016 9:22 PM COMPARISON: June 21, 2016 HISTORY: Nausea vomiting diarrhea and lower abdominal pain TECHNIQUE: 2 upright views FINDINGS: The bowel gas pattern is normal. No pneumatosis and no pneumoperitoneum. Soft tissues and s keletal structures are unremarkable. Visualized lung bases and pleural spaces are negative. IMPRESSION: No acute process.
[2016-06-23 22:42] LABS: Appearance,Urine Cloudy (Clear); Bilirubin,Urine Negative (Negative); Glucose,Urine (UA) 4+ (Negative); Ketones,Urine Trace (Negative); Leukocyte Esterase,Urine Negative (Negative); Mucus,Urine Few /hpf; Nitrite,Urine Negative (Negative); PH, Urine 5.5 (5.0-8.0); Particle Count 6322; Protein,Urine 2+ (Negative); RBC,Urine 4 /hpf (0-5); Specific Gravity,Urine 1.031 (1.001-1.035); Squamous Epithelial Cell,Urine 5 /hpf (0-4); UA Billing (MACRO vs. MICRO) MICRO; Urobilinogen,Urine <2.0 mg/dL (<2.0); WBC,Urine 2 /hpf (0-5)
[2016-06-23] MEDS ORDERED: NALOXONE 0.4 MG/ML 1 ML VIAL IV PRN (22:47)
[2016-06-24] MEDS: HYDROmorphone 1 MG/ML 1 ML SYRINGE IV PRN ×8 (00:30→21:24)
[2016-06-24] MEDS: SODIUM CHLORIDE 0.9% 1,000 ML IV SCH ×2 (00:31→03:40)
[2016-06-24 00:57] VITALS: BMI 47.8
[2016-06-24] MEDS: ONDANSETRON 4 MG/2 ML VIAL IVP PRN ×3 (06:38→23:04)
[2016-06-24 07:25] LABS: Glucose,Whole Blood 177 mg/dL (75-99)
[2016-06-24] MEDS ORDERED: RX INFO: IV CONTRAST WAS GIVEN 1 EACH MISC MISCELLANE PRN (08:39)
[2016-06-24] MEDS ORDERED: IOHEXOL 350 MG/ML 25 ML BOTTLE (ORAL USE) PO PRN (08:39)
[2016-06-24 11:45] LABS: Glucose,Whole Blood 190 mg/dL (75-99)
[2016-06-24] MEDS: BARIUM SULFATE 450 ML ORAL.SUSP BOTTLE PO PRN ×2 (12:16→16:01)
[2016-06-24 17:16] LABS: Glucose,Whole Blood 160 mg/dL (75-99)
--- NOTE | 2016-06-24 17:34 | HP ---
DATE OF ADMISSION: Patient is a 40-year-old female who was discharged from my service a couple days ago after she came in with abdominal pain. Patient was found to have some umbilical hernia with fat and inflammation of fat around that area. Surgery evaluated the patient and they did not believe any further intervention needed to be done at that time and patient was subsequently discharged. Patient comes back with severe burning abdominal pain, diffuse, about 8 to 9/10 in severity. Denied any fever, chills. Denied any nausea or vomiting. Patient when questioned about dysuria she did complain that she has dysuria. Patient complained about similar symptoms. Patient is ALLERGIC TO MULTIPLE MEDICATIONS. Patient was started on clindamycin by me. Patient was discharged on clindamycin by me. Urine cultures are positive for pansensitive E. coli. I will go ahead and continue with clindamycin. Surgery evaluated the patient thereafter and CT of the abdomen. REVIEW OF SYSTEMS: CONSTITUTIONAL: No fever, no malaise, no fatigue. HEENT: No recent visual problems or hearing problems. Denied any sore throat. CARDIOVASCULAR: No chest pain, orthopnea, PND, no palpitations, no syncope. PULMONARY: No shortness of breath, no cough, no hemoptysis. GASTROINTESTINAL: Abdomen as described in HPI. NEUROLOGICAL: No headaches, no weakness, no numbness. HEMATOLOGICAL: Denies any bleeding or petechiae. GENITOURINARY: Denies any burning micturition, frequency, or urgency. MUSCULOSKELETAL/RHEUMATOLOGICAL: Denies any joint pain, swelling, or any muscle pain. ENDOCRINE: Denies any polyuria or polydipsia. The rest of the 14 point review of systems is negative. Home medications include: Insulin, metformin, morphine sulfate, montelukast, benzonatate, and clindamycin. ALLERGIES: ALLERGIC TO CEPHALOSPORIN, CORTISONE, DIPHENHYDRAMINE, DOXYCYCLINE, PENICILLIN, QUINOLONE AND SULFA DRUGS. PAST MEDICAL HISTORY: Significant for type 2 diabetes mellitus, fibromyalgia, hypertension. SURGICAL HISTORY: Cholecystectomy, hernia repair, anxiety disorder. SOCIAL HISTORY: Denied any smoking, alcohol abuse or any drug abuse. FAMILY HISTORY: Significant for diabetes mellitus in the family. Patient has an insulin pump presently. PHYSICAL EXAMINATION: Patient is morbidly obese. Temperature 96.9, pulse 69, respiratory rate 16, blood pressure is 119/72, saturating at 96% on 3-L of O2 nasal cannula. GENERAL: The patient is alert and oriented x3, not in any acute distress. Well developed, well nourished. HEENT: Pupils are round and equally reacting to light. EOMI. No scleral icterus. No conjunctival pallor. Normocephalic, atraumatic. No pharyngeal erythema. No thyromegaly. CARDIOVASCULAR: S1 and S2 present. No murmurs, rubs, or gallops. PULMONARY: Chest is clear to auscultation, no wheezing or crackles. ABDOMEN: Patient is morbidly obese. Patient has some diffuse subjective tenderness. Beyond that there is no other significant abnormality that was appreciated. MUSCULOSKELETAL: No joint swelling or deformity. EXTREMITIES: No cyanosis, clubbing, or pedal edema. NEUROLOGICAL: Gross neurological examination did not reveal any focal deficits. SKIN: No rashes. LABORATORY DATA: CBC and CMP essentially within normal limits. CT of the abdomen is being obtained. Urine is positive for 2+ protein, 4+ glucose, squamous epithelial cells 5 consistent with contaminated urine sample. ASSESSMENT AND PLAN: 1. Abdominal pain. I do not know the exact etiology of this hernia causing so many symptoms. The differential for this abdominal pain would be psychosomatic disorder. Anyway, Surgery was consulted and they are obtaining a repeat abdominal CT. 2. Left adrenal gland adenoma for which patient will need a repeat CT down the line. 3. Possibility of urinary tract infection for which patient is on clindamycin. 4. Type 2 diabetes mellitus for which patient is on insulin pump due to uncontrolled blood sugars.
--- NOTE | 2016-06-24 18:24 | CT ---
EXAMINATION TYPE: CT abdomen pelvis wo con DATE OF EXAM: 06/24/2016 6:13 PM COMPARISON: 06/19/2016 HISTORY: Generalized abdominal pain with nausea and vomiting. CT DLP: 2365.00 mGycm Automated exposure control for dose reduction was used. TECHNIQUE: Helical acquisition of images was performed from the lung bases through the pelvis. FINDINGS: There is subsegmental atelectasis at the lung bases. There is no pleural effusion. There is no pleura l effusion. The liver appears normal. Bile ducts are not dilated. Spleen is enlarged and measures 18 cm. There is no sign of a pancreatic mass. There are clips from cholecystectomy. Bile ducts are not d ilated. There is no adrenal mass. Kidneys have normal size and contour. There is no hydronephrosis. T here is no ascites. I see no intestinal wall thickening. There are no dilated loops. There is a small umbilical hernia that contains omental fat. Bladder distends smoothly. There is no sign of a pelvic mass. Appendix appears normal. I see no bony destructive process. There are a few mesenteric and latia l lymph nodes that measure up to 2.5 cm. IMPRESSION: THERE IS MILD MESENTERIC AND LEFT RENAL LYMPHADENOPATHY SIMILAR TO THE RECENT EXAM OF 06/19/2016. PATCH Y ATELECTASIS AT THE LUNG BASES. SMALL HIATAL HERNIA. THERE IS MODERATELY SEVERE SPLENOMEGALY THAT IS UNCHANGED. ATELECTASIS IS INCREASED SLIGHTLY COMPARED TO OLD EXAM.
--- NOTE | 2016-06-24 18:37 | P.GSCN ---
History of Present Illness Consult date: 06/24/16 Reason for Consult: Abdominal pain Requesting physician: Farhana Gaffney History of present illness: Patient is a 40-year-old female with medical history significant for diabetes mellitus, fibromyalgia, hypertension, degenerative disc disease, kidney stones, and morbid obesity. Surgical history significant for cholecystectomy and umbilical hernia repair. Patient presented to the emergency department with complaints of abdominal pain. Patient was recently admitted for possible incarcerated umbilical hernia, pneumonia, and urinary tract infection. Patient was actually discharged from the hospital yesterday. Patient states that she began having nausea and vomiting at home with constant cramping and sharp burning pain going through her entire abdomen. No history of fever or chills. Patient is complaining of dysuria. Surgical consult requested for abdominal pain. CT of abdomen and pelvis with evidence of small umbilical hernia containing omental fat. Past Medical History Past Medical History: Diabetes Mellitus, Fibromyalgia, Hypertension Additional Past Medical History / Comment(s): DEGENERATIVE DISC DISEASE kidney stones obesity History of Any Multi-Drug Resistant Organisms: MRSA Year Discovered:: 07/04/01 MDRO Source:: Unknown Past Surgical History: Cholecystectomy, Hernia Repair Additional Past Surgical History / Comment(s): CATARACT SURGERY kidney stents Past Psychological History: Anxiety Smoking Status: Never smoker Past Alcohol Use History: None Reported Past Drug Use History: None Reported Medications and Allergies Home Medications Medication Instructions Recorded Confirmed Type Insulin Regular [humuLIN R] See Protocol SQ-PUMP CONTINUOUS 02/27/14 06/23/16 History metFORMIN HCL 1,000 mg PO BID 02/27/14 06/23/16 History Morphine Sulfate ER [Ms Contin] 100 mg PO BID 07/14/15 06/23/16 History Morphine Sulfate Ir [MSIR] 15 mg PO BID 07/14/15 06/23/16 History Morphine Sulfate [Morphine Sulfate] 30 mg PO BID 07/14/15 06/23/16 History Montelukast [Singulair] 10 mg PO HS PRN 10/05/15 06/23/16 History Benzonatate [Tessalon Perles] 100 mg PO TID 06/20/16 06/23/16 History Allergies Allergy/AdvReac Type Severity Reaction Status Date / Time Cephalosporins Allergy Unknown Verified 06/23/16 20:17 cortisone [Cortisone] Allergy Unknown Verified 06/23/16 20:17 diphenhydramine HCl Allergy Anaphylaxis Verified 06/23/16 20:17 [From Benadryl] doxycycline Allergy Unknown Verified 06/23/16 20:17 Penicillins Allergy Unknown Verified 06/23/16 20:17 Quinolones Allergy Unknown Verified 06/23/16 20:17 Sulfa (Sulfonamide Allergy Unknown Verified 06/23/16 20:17 Antibiotics) Surgical - Exam Vital Signs Temp Pulse Resp BP Pulse Ox 97.9 F 83 18 142/87 96 06/23/16 20:02 06/23/16 20:02 06/23/16 20:02 06/23/16 20:02 06/23/16 20:02 GENERAL: Pt awake and alert, morbidly obese, appears in no acute distress. LUNGS: Breath sounds clear to auscultation bilaterally. No wheezes, rales, or rhonchi. HEART: Heart S1, S2, no S3 or S4. Regular rate and rhythm. No murmurs, rubs or gallops. ABDOMEN: Soft, morbidly obese, tenderness across upper abdomen, nondistended, normoactive bowel sounds. No guarding, no rebound. NEUROLOGICAL: Pt oriented x 3. Results - Labs 06/23/16 21:00 06/23/16 21:00 Abnormal Lab Results - Last 24 Hours (Table) 06/24/16 06/24/16 06/24/16 Range/Units 07:06 11:34 16:54 POC Glucose (mg/dL) 177 H 190 H 160 H (75-99) mg/dL - Imaging CT scan - abdomen: report reviewed CT scan - pelvis: report reviewed Assessment and Plan Plan: Impression: 1. Small umbilical hernia containing omental fat. Plan: 1. Patient will undergo elective repair of umbilical hernia next week. Increase diet to full liquids. Continue supportive treatment and pain management. Continue medical management. The above impression and plan have been discussed and directed by Dr. Nye. Inna MAYNARD acting as scribe for Dr. Nye.
[2016-06-24] MEDS: BENZONATATE 100 MG CAP PO SCH (18:41)
[2016-06-24] MEDS: INSULIN LISPRO (humaLOG) 300 UNIT/3 ML VIAL SQ SCH ×2 (18:42→20:35)
[2016-06-24] MEDS: MORPHINE SULFATE IR 15 MG TABLET PO SCH (19:30)
[2016-06-24 20:16] LABS: Hemoglobin A1C 11.6 % (4.2-6.1)
[2016-06-24 20:28] LABS: Glucose,Whole Blood 172 mg/dL (75-99)
[2016-06-24] MEDS: MORPHINE SULFATE ER 100 MG TABLET PO SCH (20:35)
[2016-06-24] MEDS: CLINDAMYCIN 150 MG CAP PO SCH ×2 (20:36→20:40)
[2016-06-24] MEDS ORDERED: MORPHINE SULFATE 30 MG PO SCH (21:00)
[2016-06-25] MEDS: BENZONATATE 100 MG CAP PO SCH ×4 (00:32→20:16)
[2016-06-25] MEDS: CLINDAMYCIN 150 MG CAP PO SCH ×4 (00:32→20:17)
[2016-06-25] MEDS: HYDROmorphone 1 MG/ML 1 ML SYRINGE IV PRN ×8 (00:35→22:46)
[2016-06-25] MEDS: SODIUM CHLORIDE 0.9% 1,000 ML IV SCH ×2 (03:25→16:48)
[2016-06-25] MEDS: ONDANSETRON 4 MG/2 ML VIAL IVP PRN ×3 (06:15→23:46)
[2016-06-25 07:36] LABS: Glucose,Whole Blood 179 mg/dL (75-99)
[2016-06-25] MEDS: INSULIN LISPRO (humaLOG) 300 UNIT/3 ML VIAL SQ SCH ×4 (07:40→20:20)
[2016-06-25] MEDS: MORPHINE SULFATE ER 100 MG TABLET PO SCH ×2 (10:59→20:17)
[2016-06-25 11:53] LABS: Glucose,Whole Blood 226 mg/dL (75-99)
--- NOTE | 2016-06-25 12:43 | P.PN ---
Subjective Principal diagnosis: Abdominal pain Patient is seen on rounds. She continues to have abdominal pain. It starts on the right and goes across the abdomen. No nausea or vomiting. She's tolerating a diet. Objective - Vital Signs Vital signs: Vital Signs Temp 97.7 F 06/25/16 07:00 Pulse 67 06/25/16 07:00 Resp 18 06/25/16 07:00 BP 123/78 06/25/16 07:00 Pulse Ox 94 L 06/25/16 07:00 Intake & Output 06/24/16 06/25/16 06/25/16 18:59 06:59 18:59 Intake Total 1550 360 Balance 1550 360 Weight 160.118 kg Intake: Intake, IV Titration 825 Amount Sodium Chloride 0.9% 1, 825 000 ml @ 75 mls/hr IV . [id number] CHELO Rx#:[id number] Oral 725 360 Other: Voiding Method Toilet # Voids 2 2 - Constitutional General appearance: Present: cooperative, no acute distress - Respiratory Respiratory: bilateral: CTA - Gastrointestinal General gastrointestinal: Present: normal bowel sounds, soft, tenderness (Right lower quadrant and mid abdomen. No point tenderness along the umbilicus.) - Labs CBC & Chem 7: 06/23/16 21:00 06/23/16 21:00 Labs: Abnormal Lab Results - Last 24 Hours (Table) 06/24/16 06/24/16 06/25/16 Range/Units 16:54 20:26 07:35 POC Glucose (mg/dL) 160 H 172 H 179 H (75-99) mg/dL 06/25/16 Range/Units 11:50 POC Glucose (mg/dL) 226 H (75-99) mg/dL Assessment and Plan (1) Abdominal pain Status: Acute (2) Incarcerated umbilical hernia Status: Acute (3) Diabetes Status: Acute Plan: We'll advance her diet. Continue medical care. Possible umbilical hernia repair at some point.
[2016-06-25] MEDS: MORPHINE SULFATE IR 15 MG TABLET PO SCH ×2 (14:16→19:09)
[2016-06-25 17:07] LABS: Glucose,Whole Blood 188 mg/dL (75-99)
[2016-06-25 20:21] LABS: Glucose,Whole Blood 203 mg/dL (75-99)
--- NOTE | 2016-06-25 20:39 | PN ---
Patient is a 40-year-old admitted with abdominal pain for ongoing surgical evaluation. Patient continues to complain of abdominal pain. REVIEW OF SYSTEMS: CARDIOVASCULAR: No chest pain, no orthopnea, no PND, no palpitations. PULMONARY: Denied any shortness of breath. No cough or hemoptysis. GASTROINTESTINAL: As described in HPI. NEUROLOGIC: No headaches, no weakness, no numbness. Medications were reviewed. PHYSICAL EXAMINATION: VITAL SIGNS: Temperature 97.7, pulse of 81, respiratory rate of 16, blood pressure is 123/73. Saturating at 96% on room air. GENERAL: The patient is alert and oriented x3, not in any acute distress. Well developed, well nourished. HEENT: Pupils are round and equally reacting to light. EOMI. No scleral icterus. No conjunctival pallor. Normocephalic, atraumatic. No pharyngeal erythema. No thyromegaly. CARDIOVASCULAR: S1 and S2 present. No murmurs, rubs, or gallops. PULMONARY: Chest is clear to auscultation, no wheezing or crackles. ABDOMEN: Unchanged compared to yesterday. MUSCULOSKELETAL: No joint swelling or deformity. EXTREMITIES: No cyanosis, clubbing, or pedal edema. NEUROLOGICAL: Gross neurological examination did not reveal any focal deficits. SKIN: No rashes. LABORATORY DATA: None available from today. ASSESSMENT AND PLAN: 1. Abdominal pain etiology is unknown. Please refer to surgical evaluation. Patient has a small umbilical hernia. Not sure whether that is contributing to her abdominal or not. For possible urinary tract infection. Patient is on clindamycin. 2. Morbid obesity. 3. Type 2 diabetes mellitus, uncontrolled blood sugars continue with insulin pump. Insulin pump education will be provided. 4. Left adrenal gland adenoma for which she will need a repeat CT in about 2 to 3 months.
[2016-06-26] MEDS: CLINDAMYCIN 150 MG CAP PO SCH ×4 (00:26→20:40)
[2016-06-26] MEDS: HYDROmorphone 1 MG/ML 1 ML SYRINGE IV PRN ×8 (02:03→23:46)
[2016-06-26] MEDS: SODIUM CHLORIDE 0.9% 1,000 ML IV SCH ×2 (05:06→17:14)
[2016-06-26 06:55] LABS: Glucose,Whole Blood 188 mg/dL (75-99)
[2016-06-26] MEDS: ONDANSETRON 4 MG/2 ML VIAL IVP PRN ×3 (08:10→23:46)
[2016-06-26] MEDS: BENZONATATE 100 MG CAP PO SCH ×3 (08:10→20:40)
[2016-06-26] MEDS: INSULIN LISPRO (humaLOG) 300 UNIT/3 ML VIAL SQ SCH ×4 (08:11→20:39)
[2016-06-26] MEDS: MORPHINE SULFATE ER 100 MG TABLET PO SCH ×2 (08:16→20:38)
--- NOTE | 2016-06-26 11:17 | P.PN ---
Subjective Principal diagnosis: Abdominal pain, nausea The patient continues to have some diffuse abdominal pain. Mainly on the right side. Also is complaining of nausea. Worse after eating. She does have a history of gastritis in the past. She denies fevers or chills. She denies any previous history of knowing she had splenomegaly. Objective - Vital Signs Vital signs: Vital Signs Temp 97.1 F L 06/26/16 03:14 Pulse 78 06/26/16 03:14 Resp 18 06/26/16 03:14 BP 109/64 06/26/16 03:14 Pulse Ox 94 L 06/26/16 03:14 Intake & Output 06/25/16 06/26/16 06/26/16 18:59 06:59 18:59 Intake Total 1090 Balance 1090 Weight 160.118 kg 160.118 kg Intake: Oral 1090 Other: Voiding Method Toilet # Voids 0 1 - Constitutional General appearance: Present: cooperative, no acute distress - Gastrointestinal General gastrointestinal: Present: normal bowel sounds, soft, tenderness ( Diffuse, more on the right side. No specific umbilical pain.) - Labs CBC & Chem 7: 06/23/16 21:00 06/23/16 21:00 Labs: Abnormal Lab Results - Last 24 Hours (Table) 06/25/16 06/25/16 06/25/16 Range/Units 11:50 17:03 20:19 POC Glucose (mg/dL) 226 H 188 H 203 H (75-99) mg/dL 06/26/16 Range/Units 06:52 POC Glucose (mg/dL) 188 H (75-99) mg/dL Assessment and Plan (1) Splenomegaly Status: Acute (2) Lymphadenopathy, abdominal Status: Acute (3) Abdominal pain Status: Acute (4) Incarcerated umbilical hernia Status: Acute (5) Diabetes Status: Acute (6) Nausea Status: Acute (7) History of gastritis Status: Acute Plan: The splenomegaly and lymphadenopathy appear to be new since her CAT scan on 10/04. The adrenal lesion has been stable since 2013. Recommend workup of the splenomegaly and lymphadenopathy prior to surgery. A benefit from a EGD due to her nausea and history of gastritis.
[2016-06-26 11:57] LABS: Glucose,Whole Blood 245 mg/dL (75-99)
[2016-06-26] MEDS: MORPHINE SULFATE IR 15 MG TABLET PO SCH ×2 (12:25→17:13)
[2016-06-26 17:08] LABS: Glucose,Whole Blood 206 mg/dL (75-99)
[2016-06-26 20:12] LABS: Glucose,Whole Blood 244 mg/dL (75-99)
[2016-06-27] MEDS: CLINDAMYCIN 150 MG CAP PO SCH ×3 (00:26→13:07)
[2016-06-27] MEDS: HYDROmorphone 1 MG/ML 1 ML SYRINGE IV PRN ×3 (03:18→11:49)
[2016-06-27 07:01] LABS: Glucose,Whole Blood 199 mg/dL (75-99)
[2016-06-27] MEDS: BENZONATATE 100 MG CAP PO SCH (07:48)
[2016-06-27] MEDS: ONDANSETRON 4 MG/2 ML VIAL IVP PRN (07:48)
[2016-06-27] MEDS: INSULIN LISPRO (humaLOG) 300 UNIT/3 ML VIAL SQ SCH ×2 (07:49→12:54)
[2016-06-27] MEDS: SODIUM CHLORIDE 0.9% 1,000 ML IV SCH (08:07)
[2016-06-27] MEDS: MORPHINE SULFATE ER 100 MG TABLET PO SCH (10:02)
[2016-06-27 12:03] VITALS: BP 120/64; PULSE 71; RESP 16; TEMP 97.6
[2016-06-27 12:09] LABS: Glucose,Whole Blood 177 mg/dL (75-99)
[2016-06-27] MEDS ORDERED: PROPOFOL 10 MG/ML 20 ML VIAL IV ONE (12:32)
[2016-06-27] MEDS ORDERED: IV FLUID CONTINUATION 1,000 ML IV ONE (12:32)
--- NOTE | 2016-06-27 12:41 | P.OP ---
Date of Procedure: 06/27/16 Preoperative Diagnosis: Gastritis Postoperative Diagnosis: mild antral gastritis No evidence of hiatal hernia Esophageal biopsy pending Procedure(s) Performed: EGD Anesthesia: MAC Surgeon: Braden Nye Pathology: other (Antrum, esophagus) Condition: stable Disposition: PACU Description of Procedure: The patient's placed on the endoscopy table in the lateral position. She received IV sedation. The gastroscope some placed oropharynx passed in the esophagus and stomach. The scope was then placed through the pylorus. The first and second portion of duodenum appeared normal. Scope was then brought back the antrum and this is mildly inflamed. A biopsies performed. Scope was retroflexed and the remainder of the stomach appeared normal. There was no hiatal hernia. The GE junction at 47 is. The distal esophagus appeared mildly inflamed a biopsies performed. The proximal esophagus appeared normal. Scope was withdrawn for patient.
[2016-06-27] MEDS: MORPHINE SULFATE IR 15 MG TABLET PO SCH (13:08)
[2016-06-27] MEDS ORDERED: ONDANSETRON 4 MG/2 ML VIAL IVP PRN (13:45)
--- NOTE | 2016-06-27 16:46 | P.DS ---
Providers Date of admission: 06/23/16 22:48 Expected date of discharge: 06/27/16 Attending physician: MD Dr. Arsen Bedoya. Consults: Surgery, Dr. Rivera, Dr. Piña, Primary care physician: Marleny Farrell Hospital Course: Final Diagnoses: 1. Abdominal pain, etiology unclear, status post EGD reporting mild antral gastritis, no hiatal hernia. Esophageal biopsy pending. 2. Morbid obesity, BMI 47.9 3. Diabetes mellitus type 2 on insulin pump 4. Left adrenal adenoma, recommend repeat CT in 2-3 months 5. Atelectasis 6. Moderately severe splenomegaly, unchanged Hospital course: This is a 40-year-old female admitted with abdominal pain. CT of abdomen and pelvis reported mild mesenteric and left renal lymphadenopathy similar to recent exam, patchy atelectasis at bilateral bases, moderately severe splenomegaly-unchanged. Surgical evaluations by both Dr. Piña and Dr. Nye. Underwent EGD reporting mild antral gastritis with biopsies obtained and pending. Tolerated procedure well. Further workup of splenomegaly/ lymphadenopathy outpatient with surgery. Cleared for discharge by surgery. Patient is being discharged home on in a stable condition with guarded prognosis. The impression and plan of care has been dictated as directed. DrRubens: I performed a H&P examination of this patient and discussed the same with the dictator. I agree with the dictator's note. Any additional findings/opinions/ etc. will be noted. Patient Condition at Discharge: Stable Plan - Discharge Summary New Discharge Prescriptions: Omeprazole [PriLOSEC] 20 mg PO AC-BRKFST #30 cap Discharge Medication List Insulin Regular [humuLIN R] See Protocol SQ-PUMP CONTINUOUS 02/27/14 [History] metFORMIN HCL 1,000 mg PO BID 02/27/14 [History] Morphine Sulfate 30 mg PO BID 07/14/15 [History] Morphine Sulfate ER [Ms Contin] 100 mg PO BID 07/14/15 [History] Morphine Sulfate Ir [MSIR] 15 mg PO BID 07/14/15 [History] Montelukast [Singulair] 10 mg PO HS PRN 10/05/15 [History] Benzonatate [Tessalon Perles] 100 mg PO TID 06/20/16 [History] Omeprazole [PriLOSEC] 20 mg PO AC-BRKFST #30 cap 06/27/16 [Rx] Follow up Appointment(s)/Referral(s): Marleny Farrell DO [Primary Care Provider] - 3 Days Braden Nye MD [STAFF PHYSICIAN] - 1 Week Activity/Diet/Wound Care/Special Instructions: Insulin pump as previously advised.. Left adrenal gland adenoma: Repeat CT in 2-3 months with PCP. Discharge Disposition: HOME SELF-CARE
== END 2016-06-27 15:48 | disposition home or self-care (01) ==
LOC: EC 19:52 → 3SUR 22:48 → EC 23:58
PROVIDERS: ADMIT Internal Medicine; ATTEND Internal Medicine
DX: D35.02 Benign neoplasm of left adrenal gland (principal); K29.60 Other gastritis without bleeding; E66.01 Morbid (severe) obesity due to excess calories; Z68.42 Body mass index [BMI] 45.0-49.9, adult; E11.65 Type 2 diabetes mellitus with hyperglycemia; I10 Essential (primary) hypertension; J98.11 Atelectasis; K42.0 Umbilical hernia with obstruction, without gangrene; M79.7 Fibromyalgia; Z79.4 Long term (current) use of insulin; Z87.442 Personal history of urinary calculi; Z90.49 Acquired absence of other specified parts of digestive tract; Z96.41 Presence of insulin pump (external) (internal); R16.1 Splenomegaly, not elsewhere classified; Z79.84 Long term (current) use of oral hypoglycemic drugs; Z79.891 Long term (current) use of opiate analgesic; Z79.899 Other long term (current) drug therapy; Z88.1 Allergy status to other antibiotic agents; Z88.3 Allergy status to other anti-infective agents; Z88.0 Allergy status to penicillin; Z88.2 Allergy status to sulfonamides; Z88.8 Allergy status to other drugs, medicaments and biological substances
CPT/HCPCS: 36415; 88305; 80053; 85652; 82150; 83036; 83690; 85025; 86140; 86308; 81001; 88342; 81025; 74000; 74176; 43239; 99285; 96374; 96375; 96361 ×2; G0378 ×5; J2405 ×5; J1170 ×5; J2704; 96376

== ENCOUNTER 2016-07-01 18:51 | Emergency (ER) | payer OTHER ==
[2016-07-01 19:06] VITALS: TEMP 98.3
[2016-07-01] MEDS ORDERED: PROCHLORPERAZINE 5 MG TAB PO STA (19:31)
[2016-07-01] MEDS ORDERED: HYDROmorphone 2 MG/ML 1 ML SYRINGE IM STA (19:31)
[2016-07-01] MEDS ORDERED: LORazepam 2 MG/ML SYRINGE IM STA (19:36)
--- NOTE | 2016-07-01 19:50 | ED ---
General Adult HPI - General Chief complaint: Abdominal Pain Stated complaint: LEFT ABDOMINAL PAIN, HX ENLARGED SPLEEN Time Seen by Provider: 07/01/16 19:19 Source: patient, RN notes reviewed, old records reviewed Mode of arrival: ambulatory Limitations: no limitations - History of Present Illness Initial comments: This is a 40-year-old female here for evaluation of jaw pain, patient has history of chronic abdominal pain, multiple dental surgeries, she has had a gallbladder removed.Nausea vomiting of recent. Patient's incision and recently hospitalized for similar symptoms. Patient is following with Dr. Warner, patient has been told that she has enlarged spleen, and has no recent fevers nausea vomiting or diarrhea. Patient does take pain medication at home at this point has not been helping, the pain medication she takes is for her back. - Related Data Home Medications Medication Instructions Recorded Confirmed Insulin Regular [humuLIN R] See Protocol SQ-PUMP CONTINUOUS 02/27/14 06/23/16 metFORMIN HCL 1,000 mg PO BID 02/27/14 06/23/16 Morphine Sulfate 30 mg PO BID 07/14/15 06/23/16 Morphine Sulfate ER [Ms Contin] 100 mg PO BID 07/14/15 06/23/16 Morphine Sulfate Ir [MSIR] 15 mg PO BID 07/14/15 06/23/16 Montelukast [Singulair] 10 mg PO HS PRN 10/05/15 06/23/16 Benzonatate [Tessalon Perles] 100 mg PO TID 06/20/16 06/23/16 Previous Rx's Medication Instructions Recorded Omeprazole [PriLOSEC] 20 mg PO AC-BRKFST #30 cap 06/27/16 Allergies Allergy/AdvReac Type Severity Reaction Status Date / Time Cephalosporins Allergy Unknown Verified 06/23/16 20:17 cortisone [Cortisone] Allergy Unknown Verified 06/23/16 20:17 diphenhydramine HCl Allergy Anaphylaxis Verified 06/23/16 20:17 [From Benadryl] doxycycline Allergy Unknown Verified 06/23/16 20:17 Penicillins Allergy Unknown Verified 06/23/16 20:17 Quinolones Allergy Unknown Verified 06/23/16 20:17 Sulfa (Sulfonamide Allergy Unknown Verified 06/23/16 20:17 Antibiotics) Review of Systems ROS Statement: Those systems with pertinent positive or pertinent negative responses have been documented in the HPI. ROS Other: All systems not noted in ROS Statement are negative. Past Medical History Past Medical History: Diabetes Mellitus, Fibromyalgia, Hypertension Additional Past Medical History / Comment(s): DEGENERATIVE DISC DISEASE kidney stones obesity History of Any Multi-Drug Resistant Organisms: MRSA Date of last positivie culture/infection: 07/04/01 MDRO Source:: Unknown Past Surgical History: Cholecystectomy, Hernia Repair Additional Past Surgical History / Comment(s): CATARACT SURGERY kidney stents Past Psychological History: Anxiety Smoking Status: Never smoker Past Alcohol Use History: None Reported Past Drug Use History: None Reported General Exam Limitations: no limitations General appearance: alert, in no apparent distress, obese Head exam: Present: atraumatic, normocephalic, normal inspection Eye exam: Present: normal appearance, PERRL, EOMI. Absent: scleral icterus, conjunctival injection, periorbital swelling ENT exam: Present: normal exam, mucous membranes moist Neck exam: Present: normal inspection. Absent: tenderness, meningismus, lymphadenopathy Respiratory exam: Present: normal lung sounds bilaterally. Absent: respiratory distress, wheezes, rales, rhonchi, stridor Cardiovascular Exam: Present: regular rate, normal rhythm, normal heart sounds. Absent: systolic murmur, diastolic murmur, rubs, gallop, clicks GI/Abdominal exam: Present: soft, normal bowel sounds. Absent: distended, tenderness, guarding, rebound, rigid Extremities exam: Present: normal inspection, full ROM, normal capillary refill. Absent: tenderness, pedal edema, joint swelling, calf tenderness Back exam: Present: normal inspection Neurological exam: Present: alert, oriented X3, CN II-XII intact Psychiatric exam: Present: normal affect, normal mood Skin exam: Present: warm, dry, intact, normal color. Absent: rash Course Vital Signs 07/01/16 07/01/16 19:05 19:47 Temperature 98.3 F Pulse Rate 86 Respiratory 18 18 Rate Blood Pressure 145/98 O2 Sat by Pulse 98 Oximetry - Reevaluation(s) Reevaluation #1: 07/01/16 19:49 Patient's pain at this time is much improved Medical Decision Making - Medical Decision Making 40 female the ER with acute on chronic abdominal pain. Pain at this time is improved, controlled, patient will be given follow-up for Dr. Nye on Monday Disposition Clinical Impression: Abdominal pain, Abdominal colic Disposition: HOME SELF-CARE Condition: Good Instructions: Abdominal Pain (ED) Referrals: Marleny Farrell DO [Primary Care Provider] - 1-2 days Braden Nye MD [STAFF PHYSICIAN] - 1-2 days
[2016-07-01 20:53] VITALS: BP 136/70; PULSE 78; RESP 20
== END 2016-07-01 20:50 | disposition home or self-care (01) ==
LOC: EC 18:51
DX: R10.9 Unspecified abdominal pain (principal); G89.29 Other chronic pain; M79.7 Fibromyalgia; E11.9 Type 2 diabetes mellitus without complications; Z87.442 Personal history of urinary calculi; Z79.899 Other long term (current) drug therapy; Z79.4 Long term (current) use of insulin; Z88.0 Allergy status to penicillin; Z88.2 Allergy status to sulfonamides; Z88.1 Allergy status to other antibiotic agents; Z88.8 Allergy status to other drugs, medicaments and biological substances; Z86.14 Personal history of Methicillin resistant Staphylococcus aureus infection; Z79.891 Long term (current) use of opiate analgesic
CPT/HCPCS: 96372; 99283; S0183; J2060; J1170

== ENCOUNTER 2016-08-14 13:11 | Observation (INO) | payer OTHER ==
[2016-08-14] MEDS ORDERED: SODIUM CHLORIDE 0.9% 500 ML IV STA (13:49)
[2016-08-14] MEDS ORDERED: FAMOTIDINE 20 MG/2 ML VIAL IV STA (13:49)
[2016-08-14] MEDS ORDERED: SODIUM CHLORIDE 0.9% 1,000 ML IV STA (13:49)
--- NOTE | 2016-08-14 14:16 | ED ---
General Adult HPI - General Chief complaint: Allergic Reaction Stated complaint: allergic reaction Source: patient, family, RN notes reviewed, old records reviewed Mode of arrival: wheelchair Limitations: no limitations - History of Present Illness Initial comments: Chief complaint history of present illness a 40-year-old female reports she's having ALLERGIC reaction to her latest antibiotic clindamycin. Patient reports been on it for the past 5 days because of a dental extraction infection. Patient awakened this morning with his on her left arm. This since subsided. Patient reports she still feels as though she might be having a reaction currently not having difficulty breathing no nausea no vomiting. Patient reports she was in hospital for 10 days recently because of ALLERGIC reaction to azithromycin. - Related Data Home Medications Medication Instructions Recorded Confirmed Insulin Regular [humuLIN R] See Protocol SQ-PUMP CONTINUOUS 02/27/14 08/14/16 metFORMIN HCL 1,000 mg PO BID 02/27/14 08/14/16 Morphine Sulfate 30 mg PO BID@1400,1800 07/14/15 08/14/16 Morphine Sulfate ER [Ms Contin] 100 mg PO BID@0900,2300 07/14/15 08/14/16 Morphine Sulfate Ir [MSIR] 15 mg PO BID@1400,1800 07/14/15 08/14/16 Montelukast [Singulair] 10 mg PO HS 10/05/15 08/14/16 Allergies Allergy/AdvReac Type Severity Reaction Status Date / Time adhesive tape Allergy Severe Rash/Hives Verified 08/14/16 13:19 Cephalosporins Allergy Unknown Verified 08/14/16 13:19 cortisone [Cortisone] Allergy Unknown Verified 08/14/16 13:19 diphenhydramine HCl Allergy Anaphylaxis Verified 08/14/16 13:19 [From Benadryl] doxycycline Allergy Unknown Verified 08/14/16 13:19 Penicillins Allergy Unknown Verified 08/14/16 13:19 Quinolones Allergy Unknown Verified 08/14/16 13:19 Sulfa (Sulfonamide Allergy Unknown Verified 08/14/16 13:19 Antibiotics) Review of Systems ROS Statement: Those systems with pertinent positive or pertinent negative responses have been documented in the HPI. Review of systems no headache or visual acuity changes no chest pain or shortness of breath this time. His subsided without taking any medications prior to coming emergency room. She last took the clindamycin last night. She been taken it daily for 5 days prior to the beginning of the reaction last night. No chest pain shortness breath GI/ problems no neuro deficits all systems are reviewed. Past medical problems significant for insulin-dependent diabetes mellitus, fibromyalgia from degenerative disc disease, and hypertension. The patient's surgeries cholecystectomy, hernia repair cataract surgery which was only H 20. Family history: Cancer. The patient has ALLERGIES to adhesives, cephalosporins , cortisone, diphenhydramine, doxycycline, penicillin, quinolones and now clindamycin. Patient also reports she had an adverse reaction to azithromycin and stayed in the hospital for some 10 days recently. Patient states nonsmoker nondrinker. ROS Other: All systems not noted in ROS Statement are negative. Past Medical History Past Medical History: Diabetes Mellitus, Fibromyalgia, Hypertension Additional Past Medical History / Comment(s): DEGENERATIVE DISC DISEASE kidney stones obesity History of Any Multi-Drug Resistant Organisms: MRSA Date of last positivie culture/infection: 07/04/01 MDRO Source:: Unknown Past Surgical History: Cholecystectomy, Hernia Repair Additional Past Surgical History / Comment(s): CATARACT SURGERY kidney stents Past Psychological History: Anxiety Smoking Status: Never smoker Past Alcohol Use History: None Reported Past Drug Use History: None Reported General Exam - General Exam Comments Initial Comments: General: The patient is awake and alert, states she had hives on her armleft arm earlier this morning she believes is from clindamycin which she's been on for 5 days. Last medication taken was last night. Denying any shortness of breath or wheezing no nausea no vomiting or diarrhea. Vital signs show temperature 98.7 pulse 107 over story rate 18 pulse ox 95% room air blood pressure 136/75Eye : Pupils are equal, round and reactive to light, extra-ocular movements are intact ; there is normal conjunctiva bilaterally. No signs of icterus. Ears, nose, mouth and throat: There are moist mucous membranes and no oral lesions. Patient had 2 teeth removed numbers 5 and 12 last week. It was thought it may have become infected so her family physician put her on clindamycin which she had never reacted to in the past. She was on for 5 days and then had a reaction this morning. Neck: The neck is supple, there is no tenderness . Cardiovascular: Tachycardic heart rate 105. No murmur, rub or gallop is appreciated. Respiratory: Lungs are clear to auscultation, respirations are non-labored, breath sounds are equal. No wheezes, stridor, rales, or rhonchi. Gastrointestinal: Soft, non-distended, non-tender abdomen without masses or organomegaly noted. There is no rebound or guarding present. No CVA tenderness. Bowel sounds are unremarkable. morbidly obese in excess of 330 pounds Back: No complaint of back pain. Musculoskeletal: No hives appreciated this time. Full range of motion of her lower extremities. Neurological: CN II-XII intact, There are no obvious motor or sensory deficits. Coordination appears grossly intact. Speech is normal. Skin: Skin is warm and dry and no rashes or lesions are noted. No hives noted at this time. Limitations: no limitations Course Vital Signs 08/14/16 13:19 Temperature 98.7 F Pulse Rate 107 H Respiratory 18 Rate Blood Pressure 136/75 O2 Sat by Pulse 95 Oximetry Medical Decision Making - Medical Decision Making Medical decision making the patient's white count 6.5 hemoglobin 16 hematocrit of 49, potassium 4.6 with a BUN 12 creatinine 0.7 GFR greater than 60. Glucose 342. ALT mildly elevated at 56. The patient vomited 3 times while in emergency room. The plan this size for the patient to be admitted continued on Pepcid 20 twice a day. Patient has ALLERGIES to virtually all the medications that might be used for ALLERGIC reaction. - Lab Data Result diagrams: 08/14/16 14:20 08/14/16 14:20 Lab Results 08/14/16 08/14/16 Range/Units 14:20 14:20 WBC 6.5 (3.8-10.6) k/uL RBC 5.71 H (3.80-5.40) m/uL Hgb 16.1 H (11.4-16.0) gm/dL Hct 49.9 H (34.0-46.0) % MCV 87.3 (80.0-100.0) fL MCH 28.2 (25.0-35.0) pg MCHC 32.3 (31.0-37.0) g/dL RDW 13.2 (11.5-15.5) % Plt Count 214 (150-450) k/uL Neutrophils % 93 % Lymphocytes % 4 % Monocytes % 2 % Eosinophils % 1 % Basophils % 0 % Neutrophils # 6.0 (1.3-7.7) k/uL Lymphocytes # 0.3 L (1.0-4.8) k/uL Monocytes # 0.1 (0-1.0) k/uL Eosinophils # 0.0 (0-0.7) k/uL Basophils # 0.0 (0-0.2) k/uL Sodium 135 L (137-145) mmol/L Potassium 4.6 (3.5-5.1) mmol/L Chloride 100 (98-107) mmol/L Carbon Dioxide 24 (22-30) mmol/L Anion Gap 11 mmol/L BUN 12 (7-17) mg/dL Creatinine 0.70 (0.52-1.04) mg/dL Est GFR (MDRD) Af Amer >60 (>60 ml/min/1.73 sqM) Est GFR (MDRD) Non-Af >60 (>60 ml/min/1.73 sqM) Glucose 342 H (74-99) mg/dL Calcium 9.5 (8.4-10.2) mg/dL Total Bilirubin 1.1 (0.2-1.3) mg/dL AST 34 (14-36) U/L ALT 56 H (9-52) U/L Alkaline Phosphatase 85 (38-126) U/L Total Protein 7.3 (6.3-8.2) g/dL Albumin 3.9 (3.5-5.0) g/dL Disposition Clinical Impression: Adverse reaction to antibiotic Disposition: ADMITTED IP TO THIS [facility] Condition: Fair
[2016-08-14 14:31] LABS: Basophils % (A) 0 %; CHCM 33.3; Eosinophils % (A) 1 %; HCT 49.9 % (34.0-46.0); HDW 2.62; HGB 16.1 gm/dL (11.4-16.0); Luc # (Auto) 0.03; Luc % (Auto) 0; Lymphocytes # (A) 0.3 k/uL (1.0-4.8); Lymphocytes % (A) 4 %; MCH 28.2 pg (25.0-35.0); MCHC 32.3 g/dL (31.0-37.0); MCV 87.3 fL (80.0-100.0); Mean Platelet Volume 7.7; Monocytes # (A) 0.1 k/uL (0-1.0); Monocytes % (A) 2 %; Neutrophils % (A) 93 %; RBC 5.71 m/uL (3.80-5.40); RDW 13.2 % (11.5-15.5); WBC 6.5 k/uL (3.8-10.6); WBC (Perox) 6.27
[2016-08-14 14:46] LABS: ALT 56 U/L (9-52); AST 34 U/L (14-36); Alkaline Phosphatase 85 U/L (38-126); Anion Gap 11 mmol/L; Blood Urea Nitrogen 12 mg/dL (7-17); Calcium 9.5 mg/dL (8.4-10.2); Carbon Dioxide 24 mmol/L (22-30); Chloride 100 mmol/L (98-107); Glucose 342 mg/dL (74-99); Non-African American GFR(MDRD) >60 (>60 ml/min/1.73 sqM); Potassium 4.6 mmol/L (3.5-5.1); Sodium 135 mmol/L (137-145); Total Bilirubin 1.1 mg/dL (0.2-1.3); Total Protein 7.3 g/dL (6.3-8.2)
[2016-08-14] MEDS ORDERED: NALOXONE 0.4 MG/ML 1 ML VIAL IV PRN (17:18)
[2016-08-14] MEDS ORDERED: MORPHINE SULFATE 30 MG PO SCH (18:00)
[2016-08-14] MEDS: INSULIN LISPRO (humaLOG) 300 UNIT/3 ML VIAL SQ SCH ×2 (18:46→20:56)
[2016-08-14 20:29] LABS: Hemoglobin A1C 10.9 % (4.2-6.1)
[2016-08-14] MEDS: ONDANSETRON 4 MG/2 ML VIAL IVP PRN (20:40)
[2016-08-14 20:50] LABS: Glucose,Whole Blood 259 mg/dL (75-99)
[2016-08-14] MEDS: MORPHINE SULFATE IR 15 MG TABLET PO SCH (20:59)
[2016-08-14] MEDS: FAMOTIDINE 20 MG TAB PO SCH (21:01)
[2016-08-14] MEDS: MONTELUKAST 10 MG TAB PO SCH (21:01)
[2016-08-14] MEDS: metFORMIN 500 MG TAB PO SCH (21:01)
[2016-08-14] MEDS: SODIUM CHLORIDE 0.9% 1,000 ML IV SCH (21:02)
[2016-08-14 21:34] VITALS: BMI 47.5
[2016-08-15] MEDS: ONDANSETRON 4 MG/2 ML VIAL IVP PRN ×3 (05:03→21:58)
[2016-08-15] MEDS: MORPHINE SULFATE ER 100 MG TABLET PO SCH ×3 (05:12→22:21)
[2016-08-15] MEDS: ACETAMINOPHEN TAB 325 MG TAB PO PRN (06:24)
[2016-08-15] MEDS: SODIUM CHLORIDE 0.9% 1,000 ML IV SCH ×3 (06:25→18:07)
[2016-08-15 07:25] LABS: Glucose,Whole Blood 299 mg/dL (75-99)
[2016-08-15] MEDS ORDERED: INSULIN LISPRO (humaLOG) 300 UNIT/3 ML VIAL SQ SCH (08:30)
[2016-08-15] MEDS: FAMOTIDINE 20 MG TAB PO SCH ×2 (08:30→22:21)
[2016-08-15] MEDS: metFORMIN 500 MG TAB PO SCH ×2 (08:30→22:21)
[2016-08-15] MEDS: INSULIN LISPRO (humaLOG) 300 UNIT/3 ML VIAL SQ SCH ×4 (08:32→21:55)
[2016-08-15 11:57] LABS: Glucose,Whole Blood 274 mg/dL (75-99)
[2016-08-15 12:10] LABS: Appearance,Urine Clear (Clear); Bilirubin,Urine 1+ (Negative); Glucose,Urine (UA) 4+ (Negative); Ketones,Urine Negative (Negative); Leukocyte Esterase,Urine Negative (Negative); Mucus,Urine Rare /hpf; Nitrite,Urine Negative (Negative); PH, Urine 5.5 (5.0-8.0); Particle Count 8482; Protein,Urine 2+ (Negative); RBC,Urine 20 /hpf (0-5); Specific Gravity,Urine 1.041 (1.001-1.035); Squamous Epithelial Cell,Urine 6 /hpf (0-4); UA Billing (MACRO vs. MICRO) MICRO; WBC,Urine 11 /hpf (0-5)
--- NOTE | 2016-08-15 15:02 | XR ---
EXAMINATION TYPE: XR chest 2V DATE OF EXAM: 08/15/2016 2:33 PM COMPARISON: 06/19/2016 TECHNIQUE: PA and lateral views submitted. HISTORY: Cough FINDINGS: The lungs are clear and there is no pneumothorax, pleural effusion, or focal pneumonia. Linear quesada ges involving the left upper lobe is more typical of atelectasis. Mild degenerative change of the spi ne. IMPRESSION: 1. No acute process.
[2016-08-15] MEDS: MORPHINE SULFATE IR 15 MG TABLET PO SCH ×2 (15:03→18:12)
[2016-08-15 17:15] LABS: Glucose,Whole Blood 236 mg/dL (75-99)
[2016-08-15 21:41] LABS: Glucose,Whole Blood 188 mg/dL (75-99)
--- NOTE | 2016-08-15 21:55 | HP ---
DATE OF ADMISSION: Patient is a 40-year-old female who came in with possibility of allergic reaction to clindamycin. Patient was started on clindamycin about 4 days ago. Patient's symptoms improved at this point of time with a steroid dose in ER. The patient had a fever of 101, because of which I am keeping her here for monitoring purposes. Patient had a dental extraction, after which patient was given clindamycin. Four days later patient started having a maculopapular rash, which has subsided at this point of time, although patient had significant diarrhea yesterday with concern about ( ) because of that and also nausea and vomiting with ( ) will obtain ( ) testing and because of the fever, although ( ) consistent with ( ) will monitor her today here in the hospital. No antibiotics will be given. Patient had an ALLERGIC REACTION to AZITHROMYCIN, was admitted to the hospital for that during her previous hospitalization. Home medications include: 1. Regular insulin. 2. Metformin. 3. Morphine sulfate. 4. Montelukast. ALLERGIES: 1. ADHESIVE TAPES. 2. CEPHALOSPORIN. 3. CORTISONE. 4. DIPHENHYDRAMINE. 5. DOXYCYCLINE. 6. PENICILLIN. 7. QUINOLONES. 8. SULFA DRUGS. REVIEW OF SYSTEMS: CONSTITUTIONAL: No fever, no malaise, no fatigue. HEENT: No recent visual problems or hearing problems. Denied any sore throat. CARDIOVASCULAR: No chest pain, orthopnea, PND, no palpitations, no syncope. PULMONARY: No shortness of breath, no cough, no hemoptysis. GASTROINTESTINAL: As described in HPI. NEUROLOGICAL: No headaches, no weakness, no numbness. HEMATOLOGICAL: Denies any bleeding or petechiae. GENITOURINARY: Denies any burning micturition, frequency, or urgency. MUSCULOSKELETAL/RHEUMATOLOGICAL: Denies any joint pain, swelling, or any muscle pain. ENDOCRINE: Denies any polyuria or polydipsia. DERMATOLOGIC: As described in HPI. The rest of the 14 point review of systems is negative. PAST MEDICAL HISTORY: 1. Diabetes mellitus. 2. Fibromyalgia. 3. Hypertension. 4. Degenerative disc disease. 5. Cholecystectomy. 6. Hernia repair. 7. Patient has chronic ( ) pain, for which patient ( ) 8. Splenomegaly with abdominal lymphadenopathy, for which patient is undergoing outpatient evaluation. 9. Cataract surgery. 10. Anxiety disorder. SOCIAL HISTORY: ( ) FAMILY HISTORY: Significant for diabetes mellitus, type 2. PHYSICAL EXAMINATION: VITAL SIGNS: Temperature afebrile. Patient is afebrile at this time. Patient had a temperature of 101 yesterday. Patient's heart rate is around 90; she was tachycardic yesterday. Respiratory rate of 18. Saturating at 94% on room air. Blood pressure is 135/75. GENERAL: The patient is alert and oriented x3, not in any acute distress. Well developed, well nourished. HEENT: Pupils are round and equally reacting to light. EOMI. No scleral icterus. No conjunctival pallor. Normocephalic, atraumatic. No pharyngeal erythema. No thyromegaly. CARDIOVASCULAR: S1 and S2 present. No murmurs, rubs, or gallops. PULMONARY: Chest is clear to auscultation, no wheezing or crackles. ABDOMEN: Soft, nontender, nondistended, normoactive bowel sounds. No palpable organomegaly. MUSCULOSKELETAL: No joint swelling or deformity. EXTREMITIES: No cyanosis, clubbing, or pedal edema. NEUROLOGICAL: Gross neurological examination did not reveal any focal deficits. SKIN: No rashes. LABORATORY DATA: CBC, CMP are abnormal for elevated WBC count of 16,100 and sodium of 135. Blood glucose was 342. Patient has an insulin pump which she did not bring. Patient is going to bring that insulin pump from home. Chest x-ray and UA were ordered. ASSESSMENT AND PLAN: 1. Fever without any clear-cut source of infection. Can be related to allergic reaction. Will monitor ( ) and no antibiotics at this point of time. Diarrhea, nausea, vomiting will be related to the side effects of ( ) but C difficile needs to be ruled out. If patient has diarrhea again, will obtain C difficile testing. Patient will be continued on IV fluids. 2. Allergic reaction. Patient attributes it to clindamycin. Patient was not started on any new medications. Patient did not have any recent dietary changes. Patient may be allergic to clindamycin. Continue with anticholinergic antihistamines. Patient is not on steroids at this point of time. Will monitor. 3. Diabetes mellitus, type 2, with uncontrolled blood sugars. Patient will be continued on metformin and patient will be taking her pump back so that she can be re-initiated back on her pump. 4. Hypertension. Will monitor blood pressures. Patient is not on any anti-hypertensives ( ) patient will benefit from lisinopril. 5. Tachycardia due to allergic reaction, which improved at this point of time. 6. Fibromyalgia. Patient appears to have some narcotic-seeking behavior, too.
[2016-08-15] MEDS: MONTELUKAST 10 MG TAB PO SCH (22:21)
[2016-08-16] MEDS: SODIUM CHLORIDE 0.9% 1,000 ML IV SCH ×2 (03:59→17:10)
[2016-08-16 07:00] LABS: Glucose,Whole Blood 119 mg/dL (75-99)
[2016-08-16] MEDS: metFORMIN 500 MG TAB PO SCH ×2 (08:22→21:31)
[2016-08-16] MEDS: MORPHINE SULFATE ER 100 MG TABLET PO SCH ×2 (08:22→22:50)
[2016-08-16] MEDS: FAMOTIDINE 20 MG TAB PO SCH ×2 (08:24→21:30)
[2016-08-16] MEDS: ONDANSETRON 4 MG/2 ML VIAL IVP PRN ×2 (08:25→17:10)
[2016-08-16] MEDS ORDERED: INSULIN PUMP TARGET GLUCOSE 1 EACH MISC MISCELLANE PRN (08:49)
[2016-08-16] MEDS ORDERED: INSULIN LISPRO (humaLOG) 300 UNIT/3 ML VIAL SQ PRN (08:49)
[2016-08-16] MEDS ORDERED: INSPUCOR MISCELLANE PRN (08:49)
[2016-08-16] MEDS ORDERED: INSULIN PUMP ACTIVE INSULIN 1 EACH MISC MISCELLANE PRN (08:49)
[2016-08-16] MEDS ORDERED: INSULIN PUMP BASAL RATES 1 EACH MISC MISCELLANE PRN (08:49)
[2016-08-16 11:55] LABS: Glucose,Whole Blood 260 mg/dL (75-99)
[2016-08-16] MEDS: INSULIN PUMP MEAL BOLUS 1 UNIT MISC MISCELLANE SCH ×3 (12:11→22:48)
[2016-08-16] MEDS: ACETAMINOPHEN TAB 325 MG TAB PO PRN (12:11)
[2016-08-16] MEDS: MORPHINE SULFATE IR 15 MG TABLET PO SCH ×2 (13:14→17:31)
[2016-08-16 17:29] LABS: Glucose,Whole Blood 104 mg/dL (75-99)
[2016-08-16 20:53] LABS: Glucose,Whole Blood 154 mg/dL (75-99)
[2016-08-16] MEDS: MONTELUKAST 10 MG TAB PO SCH (21:30)
[2016-08-17] MEDS: SODIUM CHLORIDE 0.9% 1,000 ML IV SCH ×4 (02:44→15:34)
[2016-08-17 02:53] LABS: Glucose,Whole Blood 83 mg/dL (75-99)
[2016-08-17 08:00] LABS: Glucose,Whole Blood 123 mg/dL (75-99)
--- NOTE | 2016-08-17 08:04 | PN ---
Patient is a 40-year-old admitted for allergic reaction to clindamycin. Patient is complaining of hematuria, although no significant RBCs found in the urine. Patient does have about 20 RBCs, but does not amount to the hematuria she is complaining about. Patient had a low-grade fever, because of which I will hold her discharge today. Patient also has bilirubin in the urine and 2 + protein. I will obtain comprehensive metabolic profile tomorrow because of that to make sure patient does not have any hyperbilirubinemia. Patient uses an insulin pump. I cannot seen any significant source of infection. UA is not impressive for urinary tract infection. I will obtain an influenza A and B testing and Infectious Disease consultation. Antibiotics will not be started. Will monitor overnight. As per the nursing staff, the patient took a shower just before taking the temperature. REVIEW OF SYSTEMS: CARDIOVASCULAR: No chest pain, no orthopnea, no PND, no palpitations. PULMONARY: Denied any shortness of breath. No cough or hemoptysis. GASTROINTESTINAL: No diarrhea, nausea or vomiting. No abdominal pain. Normoactive bowel sounds. GENITOURINARY: As described in HPI. NEUROLOGIC: No headaches, no weakness, no numbness. Medications were reviewed. PHYSICAL EXAMINATION: VITAL SIGNS: Temperature 97.2, pulse 92, respiratory rate of 20, blood pressure 124/78, saturating at 96% on room air. GENERAL: The patient is alert and oriented x3, not in any acute distress. Well developed, well nourished. HEENT: Pupils are round and equally reacting to light. EOMI. No scleral icterus. No conjunctival pallor. Normocephalic, atraumatic. No pharyngeal erythema. No thyromegaly. CARDIOVASCULAR: S1 and S2 present. No murmurs, rubs, or gallops. PULMONARY: Chest is clear to auscultation, no wheezing or crackles. ABDOMEN: Soft, nontender, nondistended, normoactive bowel sounds. No palpable organomegaly. MUSCULOSKELETAL: No joint swelling or deformity. EXTREMITIES: No cyanosis, clubbing, or pedal edema. NEUROLOGICAL: Gross neurological examination did not reveal any focal deficits. SKIN: No rashes. LABORATORY DATA: No labs were obtained today. ASSESSMENT AND PLAN: 1. Low-grade fever. No source of sepsis was identified. Patient does not have any more diarrhea because of which I am unable to obtain Clostridium difficile and I will obtain infectious disease consultation. 2. Allergic reaction to clindamycin, which was discontinued. 3. Type 2 diabetes mellitus, continue with the pump. 4. Bilirubin in the urine, for which we will obtain a comprehensive metabolic profile tomorrow. 5. Hypertension. Continue with her home medications. 6. Fibromyalgia. If patient does not have any fevers and after evaluation by Infectious Disease, patient will discharged tomorrow.
[2016-08-17] MEDS: INSULIN PUMP MEAL BOLUS 1 UNIT MISC MISCELLANE SCH ×2 (08:17→13:38)
[2016-08-17] MEDS: metFORMIN 500 MG TAB PO SCH (08:18)
[2016-08-17] MEDS: MORPHINE SULFATE ER 100 MG TABLET PO SCH (08:19)
[2016-08-17] MEDS: FAMOTIDINE 20 MG TAB PO SCH (08:19)
[2016-08-17 08:42] LABS: Anion Gap 12 mmol/L; Calcium 8.9 mg/dL (8.4-10.2); Carbon Dioxide 23 mmol/L (22-30); Chloride 107 mmol/L (98-107); Glucose 124 mg/dL (74-99); Non-African American GFR(MDRD) >60 (>60 ml/min/1.73 sqM); Sodium 142 mmol/L (137-145); Total Bilirubin 0.8 mg/dL (0.2-1.3); Total Protein 5.9 g/dL (6.3-8.2)
[2016-08-17 08:55] LABS: ALT 168 U/L (9-52); AST 99 U/L (14-36); Alkaline Phosphatase 129 U/L (38-126); Blood Urea Nitrogen 13 mg/dL (7-17); Potassium 4.3 mmol/L (3.5-5.1)
[2016-08-17 09:08] LABS: Aty Lym Flag Slight; CH 28.5; HCT 39.1 % (34.0-46.0); HDW 2.83; HGB 13.4 gm/dL (11.4-16.0); MCH 28.8 pg (25.0-35.0); MCHC 34.2 g/dL (31.0-37.0); MCV 84.2 fL (80.0-100.0); Mean Platelet Volume 9.3; RBC 4.64 m/uL (3.80-5.40); RDW 13.5 % (11.5-15.5); WBC 4.4 k/uL (3.8-10.6)
[2016-08-17 10:28] LABS: Add Differential Manual Differential
[2016-08-17 10:32] LABS: Manual Review Performed; Nucleated Red Blood Cells 0 /100 WBC (0-0); Total Cells Counted 100
[2016-08-17 12:23] LABS: Glucose,Whole Blood 139 mg/dL (75-99)
[2016-08-17 13:42] VITALS: RESP 20
[2016-08-17] MEDS: MORPHINE SULFATE IR 15 MG TABLET PO SCH (14:22)
[2016-08-17 14:30] LABS: ALT 156 U/L (9-52); AST 77 U/L (14-36); Alkaline Phosphatase 118 U/L (38-126); Anion Gap 12 mmol/L; Blood Urea Nitrogen 12 mg/dL (7-17); Calcium 8.9 mg/dL (8.4-10.2); Carbon Dioxide 26 mmol/L (22-30); Chloride 102 mmol/L (98-107); Glucose 114 mg/dL (74-99); Non-African American GFR(MDRD) >60 (>60 ml/min/1.73 sqM); Potassium 4.1 mmol/L (3.5-5.1); Sodium 140 mmol/L (137-145); Total Bilirubin 0.7 mg/dL (0.2-1.3); Total Protein 6.1 g/dL (6.3-8.2)
[2016-08-17] MEDS ORDERED: DOCUSATE 100 MG CAP PO STA (16:22)
[2016-08-17] MEDS: ONDANSETRON 4 MG/2 ML VIAL IVP PRN (16:47)
[2016-08-17 16:49] VITALS: BP 109/71; PULSE 96; TEMP 97.3
--- NOTE | 2016-08-18 04:59 | CONS ---
DATE OF CONSULTATION: DATE OF SERVICE: of 08/17/2016 REASON FOR CONSULTATION: Fever and diarrhea. HISTORY OF PRESENT ILLNESS: The patient is a 40-year-old female who recently did have an upper tooth extraction about a week ago. The patient said that the area has become infected and her dentist put her on clindamycin last Monday. The patient said she took the clindamycin for about 5 days on the fifth day she started having some rash that she attributed them to the clindamycin. The patient is also having nausea, vomiting and diarrhea along with fever. With these symptoms, the patient did present to the [facility] ER where the patient has been evaluated by the ER physician. The patient did have a normal white count on admission though she did have a fever of 101.1 on the 3rd and 100.8 on the fourth. I was asked to see the patient this morning for further evaluation regarding the same. Patient did not receive any antibiotic therapy since the patient has been admitted to the hospital and has been treated symptomatically for possible allergic reaction. The patient did have subsequent resolution of the fever without any antibiotic. The patient denies any pain in her extracted tooth site. Patient denies having any chest pain or shortness of breath, occasional cough. The patient denies any significant abdominal pain. She was having diarrhea initially though seemed to have resolved and did not have any bowel movement for the last 24 hours. The patient denies any burning and frequency of urine. She did have a UA on this admission. Also, influenza serology was negative. The patient did have a chest x-ray that was reported to be negative. REVIEW OF SYSTEMS: CONSTITUTIONAL: Positive for weakness, fever. EYES: No complaint. ENT: No complaint. RESPIRATORY: No complaint. CARDIOVASCULAR: No complaint. GENITOURINARY: No complaint. GASTROINTESTINAL: As per HPI. MUSCULOSKELETAL: No complaint. INTEGUMENTARY: No complaint. PSYCHOLOGICAL: No complaint. ENDOCRINE: No complaint. NEUROLOGICAL: No complaint. PAST MEDICAL HISTORY: Significant for diabetes mellitus, fibromyalgia, hypertension, history of kidney stone, morbid obesity. PAST SURGICAL HISTORY: Hernia repair, cholecystectomy, multiple teeth removed. SOCIAL HISTORY: The patient denies smoking, drinking or drug use. FAMILY HISTORY: No pertinent findings noticed. Allergic to multiple medications including PENICILLIN, QUINOLONES, DOXYCYCLINE, CEPHALOSPORIN, mostly with a rash to antibiotics. MEDICATIONS: Currently the patient is on Tylenol, Colace, Pepcid, Humalog, Glucophage, insulin pump, Singulair, MS Contin, Narcan, Zofran. On examination, blood pressure 109/71 with the pulse of 96, temperature 97.3. She is 96% on room air. General description is a middle-age female lying in bed in no distress. No tachypnea or accessory muscle of respiration use. HEENT examination shows no pallor or scleral icterus. Oral mucous membrane is dry. Examination of the upper dentition: The extracted tooth site looks clean, no evidence of any swelling or redness. NECK: Trachea central. There is no thyromegaly. LUNGS: Unlabored breathing. Clear to auscultation anteriorly. No wheeze or crackle. HEART: S1, S2. Regular rate and rhythm. ABDOMEN: Soft. No tenderness. No guarding or rigidity. EXTREMITIES: No edema of feet. SKIN EXAMINATION: No rash or mass palpable. NEUROLOGICAL: Patient awake, alert and oriented x3. Mood and affect normal. LABS: Hemoglobin is 13.4, white count 4.4. BUN of 12, creatinine 0.55. Electrolytes have been normal. She did have slightly elevated liver enzymes on admission that has improved. The influenza serology was negative. Stool for C. difficile could not be collected. DIAGNOSTIC IMPRESSION AND PLAN: 1. Patient admitted to hospital with nausea, vomiting and diarrhea in a patient also with a rash was recently taking a clindamycin; questionable related to the clindamycin or a viral gastroenteritis . The patient's symptoms resolved without getting any antibiotic therapy and did not have an elevated white count on admission. Clostridium difficile will be one of the concerns, however, the patient's diarrhea resolved without getting treatment for the same and she was unable to provide any stool sample. Rash has completely resolved. The patient with a normal chest x-ray and normal urine and influenza PCR was negative. 2. Patient did have multiple antibiotic allergies that will limit number of antibiotics that will be safe to use. PLAN: 1. The patient may be given Flagyl that should cover possible C. difficile as well as oral infection. 2. Will follow the patient closely. If any new fever or any jump in the white count will obtain further cultures and adjust antibiotic therapy. Plan of care was discussed with attending physician. Thank you for this consultation. We will follow this patient along with you. FAWN
--- NOTE | 2016-08-18 09:51 | DS ---
DATE OF ADMISSION: 08/14/2016 DATE OF DISCHARGE: 08/17/2016 This dictation is both progress note and discharge summary. The patient is a 40-year-old admitted secondary to allergic reaction. The patient had low-grade fever the day before. I am unsure of the exact etiology of fever and may be viral urology. I did not see any significant source of infection because of which I am consulting Infectious Disease. If Infectious Disease clears her, patient will be discharged. If she needs antibiotic, we will leave that decision to Infectious Disease and patient has mildly elevated liver enzymes with normal bilirubin. I will repeat the liver enzymes again if they continue to go up then patient will need to stay here and then will workup for elevated liver enzymes then. Otherwise, there is only minimal, nonspecific elevation of liver enzymes. If they are trending down, patient will be discharged. I just discussed her case with Infectious Disease and UTI cannot be completely ruled out because of which he is metronidazole. Once the liver enzymes come down, the patient will be discharged today. REVIEW OF SYSTEMS: CARDIOVASCULAR: No chest pain, no orthopnea, no PND, no palpitations. PULMONARY: Denied any shortness of breath. No cough or hemoptysis. GASTROINTESTINAL: No diarrhea, nausea or vomiting. No abdominal pain. Normoactive bowel sounds. NEUROLOGIC: No headaches, no weakness, no numbness. Medications were reviewed. PHYSICAL EXAMINATION: VITAL SIGNS: Temperature 97.5, pulse 87, respiratory rate 24, blood pressure is 122/73, saturating at 95% on room air. GENERAL: The patient is alert and oriented x3, not in any acute distress. Well developed, well nourished. HEENT: Pupils are round and equally reacting to light. EOMI. No scleral icterus. No conjunctival pallor. Normocephalic, atraumatic. No pharyngeal erythema. No thyromegaly. CARDIOVASCULAR: S1 and S2 present. No murmurs, rubs, or gallops. PULMONARY: Chest is clear to auscultation, no wheezing or crackles. ABDOMEN: Soft, nontender, nondistended, normoactive bowel sounds. No palpable organomegaly. MUSCULOSKELETAL: No joint swelling or deformity. EXTREMITIES: No cyanosis, clubbing, or pedal edema. NEUROLOGICAL: Gross neurological examination did not reveal any focal deficits. SKIN: No rashes. LABORATORY DATA: Liver enzymes elevated as mentioned above. AST 99, ALT 168. I do not have an alkaline phosphatase available. ASSESSMENT AND PLAN: 1. Low grade fever, possibility of urinary tract infection. 2. Possibility of allergic reaction to clindamycin. 3. Type 2 diabetes mellitus. 4. Mildly elevated liver enzymes, probably nonspecific elevation or benign elevation. Further management as mentioned in the interval history. 5. Hypertension. 6. Fibromyalgia. If patient is discharged please refer to my depart summary for further details of discharge medications. Activity as tolerated. Cardiac and diabetic 1800 calorie diet. Follow up with Dr. Marleny Farrell in 3 to 7 days. Spent greater than 35 minutes in total discharge process.
== END 2016-08-17 17:18 | disposition home or self-care (01) ==
LOC: EC 13:11 → 6PED 17:18
PROVIDERS: ADMIT Internal Medicine; ATTEND Internal Medicine
DX: R21 Rash and other nonspecific skin eruption (principal); R11.2 Nausea with vomiting, unspecified; R00.0 Tachycardia, unspecified; R50.9 Fever, unspecified; R19.7 Diarrhea, unspecified; I10 Essential (primary) hypertension; M79.7 Fibromyalgia; E11.65 Type 2 diabetes mellitus with hyperglycemia; Z88.2 Allergy status to sulfonamides; Z88.0 Allergy status to penicillin; Z88.3 Allergy status to other anti-infective agents; Z86.14 Personal history of Methicillin resistant Staphylococcus aureus infection; Z87.442 Personal history of urinary calculi; Z90.49 Acquired absence of other specified parts of digestive tract; Z79.891 Long term (current) use of opiate analgesic; Z96.41 Presence of insulin pump (external) (internal); Z88.8 Allergy status to other drugs, medicaments and biological substances; Z79.84 Long term (current) use of oral hypoglycemic drugs; Z79.899 Other long term (current) drug therapy
CPT/HCPCS: 96361 ×3; 96372 ×2; 96374; 99285; 36415; 80053 ×2; 83036; 85025 ×2; 81001; 87086; 87502; 71020; G0378 ×4; J2405 ×4; 96360

== ENCOUNTER 2017-04-09 18:45 | Emergency (ER) | payer OTHER ==
--- NOTE | 2017-04-09 19:14 | ED ---
General Adult HPI - General Chief complaint: Neck Pain/Injury Stated complaint: stiff neck, , headache, difficulty swallowing Time Seen by Provider: 04/09/17 19:00 Source: patient, family, RN notes reviewed, old records reviewed Mode of arrival: ambulatory Limitations: no limitations - History of Present Illness Initial comments: Chief complaint history of present illness a 41-year-old female reports that she awakened this morning with stiff left side of her neck. Denies any injuries. Does have a history of fibromyalgia states she had a flare recently. Patient also reports that she has a history of degenerative disc disease to her neck and lumbar spine. No direct injury no fever. Mild discomfort with swallowing but she is able to otherwise without difficulty - Related Data Home Medications Medication Instructions Recorded Confirmed metFORMIN HCL 1,000 mg PO BID 02/27/14 04/09/17 Morphine Sulfate Ir [MSIR] 15 mg PO QID 07/14/15 04/09/17 Morphine Sulfate ER [Ms Contin 60 mg PO Q12HR 04/09/17 04/09/17 60Mg] valACYclovir HCL [Valtrex] 1,000 mg PO DAILY 04/09/17 04/09/17 Previous Rx's Medication Instructions Recorded Diazepam [Valium] 5 mg PO BID #4 tab 04/09/17 Allergies Allergy/AdvReac Type Severity Reaction Status Date / Time adhesive tape Allergy Severe Rash/Hives Verified 04/09/17 19:20 Cephalosporins Allergy Rash/Hives Verified 04/09/17 19:20 cortisone [Cortisone] Allergy Anaphylaxis Verified 04/09/17 19:20 diphenhydramine HCl Allergy Anaphylaxis Verified 04/09/17 19:20 [From Benadryl] doxycycline Allergy Rash/Hives Verified 04/09/17 19:20 Penicillins Allergy Anaphylaxis Verified 04/09/17 19:20 Quinolones Allergy Rash/Hives Verified 04/09/17 19:20 Sulfa (Sulfonamide Allergy Rash/Hives Verified 04/09/17 19:20 Antibiotics) Review of Systems ROS Statement: Those systems with pertinent positive or pertinent negative responses have been documented in the HPI. no headache. Though the discomfort to her neck starts at the lower left occipital region radiating down to the mid left clavicle. Looking to the left increases discomfort. No bruises no swelling. patient denies any other problems no chest pain shows breath GI/ problems all systems otherwise reviewed. Past medical problemsSignificant for insulin- dependent diabetes mellitus, fibromyalgia, hypertension, degenerative disc disease to her neck and lumbar spine. Surgeries include umbilical and repair as well as cholecystectomy and cataract surgery on both eyes. Family history cancers including breast and colon. The patient has ALLERGIES to adhesive tape , cephalosporins, cortisone, diphenhydramine, doxycycline, penicillin and quinolones. Patient does not smoke does not drink. ROS Other: All systems not noted in ROS Statement are negative. Past Medical History Past Medical History: Diabetes Mellitus, Fibromyalgia, Hypertension Additional Past Medical History / Comment(s): DEGENERATIVE DISC DISEASE, kidney stones obesity History of Any Multi-Drug Resistant Organisms: MRSA Date of last positivie culture/infection: 07/04/01 MDRO Source:: Unknown Past Surgical History: Cholecystectomy, Hernia Repair Additional Past Surgical History / Comment(s): CATARACT SURGERY, kidney stents Past Anesthesia/Blood Transfusion Reactions: No Reported Reaction Past Psychological History: Anxiety Smoking Status: Never smoker Past Alcohol Use History: None Reported Past Drug Use History: None Reported - Past Family History Father Family Medical History: No Reported History General Exam - General Exam Comments Initial Comments: General: The patient is awake and alert, complaining of pain to her left trapezius muscle. This started when she awakened this morning. No injury or history of trauma. Vital signs temperature 96.8 pulse 86 respiratory rate 18 pulse ox 97% room air blood pressure 136/82 Eye: Pupils are equal, round and reactive to light, extra-ocular movements are intact ; there is normal conjunctiva bilaterally. No signs of icterus. Ears, nose, mouth and throat: There are moist mucous membranes and no oral lesions. Neck: patient presents with left sided neck muscle discomfort from her left trapezius muscle. No rash noted. palpation of the muscle and turning to the left increases discomfort. No rash noted. No bruising noted. Cardiovascular: There is a regular rate and rhythm. No murmur, rub or gallop is appreciated. Respiratory: Lungs are clear to auscultation, respirations are non-labored, breath sounds are equal. No wheezes, stridor, rales, or rhonchi. Gastrointestinal: Soft, non-distended, non-tender abdomen without masses or organomegaly noted. There is no rebound or guarding present. No CVA tenderness. Bowel sounds are unremarkable. Back: no complaint of any back pain. Musculoskeletal: upper or lower extremities within normal limits, normal range of motion. Neurological: no neuro deficits. Skin is warm and dry and no rashes , early shingles discussed. Limitations: no limitations Course Vital Signs 04/09/17 18:54 Temperature 96.8 F L Pulse Rate 86 Respiratory 18 Rate Blood Pressure 136/82 O2 Sat by Pulse 97 Oximetry Medical Decision Making - Medical Decision Making x-rays of the cervical spine were done. I reviewed them there is some reverse cervical curve. most likely due to muscle spasm. No acute bony irregularity appreciated.awaiting radiologist's final impression. Dr. Solano The patient's artery on pain medication she will be placed on 95 mg twice a day for 2 days. Told to apply ice alternating with heat to her neck including hot showers. Advised to follow-up with family physician. Radiologist reviewed the x-rays of the cervical spine final impression is there is slight kyphotic curvature the computer related to spasm. Otherwise negative exam. No fracture. As read by Dr. Ordoñez Disposition Clinical Impression: Wry neck Disposition: HOME SELF-CARE Condition: Fair Instructions: Cervical Strain (ED), Spasmodic Torticollis (ED) Additional Instructions: Apply heat alternating with ice. Hot showers gentle stretching home medications plus Valium 5 mg twice a day for 2 days. Follow-up family physician as needed. Prescriptions: Diazepam [Valium] 5 mg PO BID #4 tab Referrals: Marleny Farrell DO [Primary Care Provider] - 1-2 days Time of Disposition: 20:01
[2017-04-09] MEDS ORDERED: DIAZEPAM 5 MG TAB PO STA (19:59)
--- NOTE | 2017-04-09 19:59 | XR ---
EXAMINATION TYPE: XR cervical spine comp DATE OF EXAM: 04/09/2017 COMPARISON: NONE HISTORY: Neck pain TECHNIQUE: 6 views FINDINGS: Cervical vertebra have fairly normal spacing and alignment. Posterior elements are intact. The atlantoaxial facet joint is normal. There are no cervical ribs. Neural foramina are widely patent . There is slight kyphotic curvature there is probably positional. IMPRESSION: There is a slight kyphotic curvature that could relate to spasm. Otherwise negative exam. No fracture.
[2017-04-09 20:24] VITALS: BP 137/85; PULSE 89; RESP 17; TEMP 98.6
== END 2017-04-09 20:27 | disposition home or self-care (01) ==
LOC: EC 18:45
DX: M43.6 Torticollis (principal); M40.202 Unspecified kyphosis, cervical region; M50.30 Other cervical disc degeneration, unspecified cervical region; M51.36 Other intervertebral disc degeneration, lumbar region; R13.10 Dysphagia, unspecified; E11.9 Type 2 diabetes mellitus without complications; E66.9 Obesity, unspecified; Z79.84 Long term (current) use of oral hypoglycemic drugs; Z79.891 Long term (current) use of opiate analgesic; Z79.899 Other long term (current) drug therapy; Z88.0 Allergy status to penicillin; Z88.1 Allergy status to other antibiotic agents; Z88.2 Allergy status to sulfonamides; Z88.8 Allergy status to other drugs, medicaments and biological substances; Z91.09 Other allergy status, other than to drugs and biological substances; Z68.42 Body mass index [BMI] 45.0-49.9, adult
CPT/HCPCS: 72050; 99284

== ENCOUNTER 2017-06-05 21:20 | Emergency (ER) | payer OTHER ==
[2017-06-05 21:27] VITALS: RESP 18
[2017-06-05] MEDS ORDERED: IPRATROPIUM-ALBUTEROL 3 ML NEB INHALATION STA (23:18)
--- NOTE | 2017-06-05 23:23 | ED ---
URI HPI - General Chief Complaint: Upper Respiratory Infection Stated Complaint: Chest Pain Time Seen by Provider: 06/05/17 22:43 Source: patient Mode of arrival: wheelchair Limitations: no limitations - History of Present Illness Initial Comments: This patient's a 41-year-old woman with history of previous pneumonia, who presents today because she is concerned she may be developing that again. She states she has had about 3 days of cough. Initially the cough was nonproductive. She has subsequently had some coughing with a little bit of yellow phlegm. She states that she is now having some burning in the substernal area when she coughs and that's why she is concerned about possible pneumonia. Patient denies dyspnea area she denies pain or swelling in the legs. She denies any change in urination or bowel movements. She does use home oxygen periodically, and has not had a change in her use of that. 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 MD Complaint: cough Onset/Timin -: days(s) Quality: burning Consistency: intermittent Improves With: nothing Worsens With: other (Off) Associated Symptoms: cough Treatments Prior to Arrival: none - Related Data Home Medications Medication Instructions Recorded Confirmed Morphine Sulfate Ir [MSIR] 15 mg PO BID 07/14/15 06/05/17 Morphine Sulfate ER [Ms Contin] 60 mg PO DAILY 04/09/17 06/05/17 valACYclovir HCL [Valtrex] 1,000 mg PO DAILY 04/09/17 06/05/17 Albuterol Inhaler [Ventolin Hfa 1 - 2 puff INHALATION RT-Q6H PRN 06/05/17 Inhaler] Morphine Sulfate ER [Ms Contin] 100 mg PO DAILY 06/05/17 06/05/17 Previous Rx's Medication Instructions Recorded glipiZIDE [Glucotrol] 5 mg PO AC-BID #60 tab 04/14/17 Promethazine 6.25MG/5Ml [Phenergan 5 ml PO Q4HR PRN #120 ml 06/06/17 Syrup] Allergies Allergy/AdvReac Type Severity Reaction Status Date / Time adhesive tape Allergy Severe Rash/Hives Verified 06/05/17 22:52 Cephalosporins Allergy Rash/Hives Verified 06/05/17 22:52 cortisone [Cortisone] Allergy Anaphylaxis Verified 06/05/17 22:52 diphenhydramine HCl Allergy Anaphylaxis Verified 06/05/17 22:52 [From Benadryl] doxycycline Allergy Rash/Hives Verified 06/05/17 22:52 Penicillins Allergy Anaphylaxis Verified 06/05/17 22:52 Quinolones Allergy Rash/Hives Verified 06/05/17 22:52 Sulfa (Sulfonamide Allergy Rash/Hives Verified 06/05/17 22:52 Antibiotics) Review of Systems ROS Statement: Those systems with pertinent positive or pertinent negative responses have been documented in the HPI. ROS Other: All systems not noted in ROS Statement are negative. Constitutional: Denies: fever, chills, weakness ENT: Reports: throat pain, congestion Respiratory: Reports: as per HPI, cough. Denies: dyspnea, wheezes, hemoptysis Cardiovascular: Reports: as per HPI, chest pain Gastrointestinal: Denies: abdominal pain, nausea, vomiting Genitourinary: Denies: dysuria, hematuria Skin: Denies: rash Neurological: Denies: headache, weakness, numbness Past Medical History Past Medical History: Diabetes Mellitus, Fibromyalgia, Hypertension Additional Past Medical History / Comment(s): DEGENERATIVE DISC DISEASE, kidney stones obesity History of Any Multi-Drug Resistant Organisms: MRSA Date of last positivie culture/infection: 07/04/01 MDRO Source:: Unknown Past Surgical History: Cholecystectomy, Hernia Repair Additional Past Surgical History / Comment(s): CATARACT SURGERY, kidney stents Past Anesthesia/Blood Transfusion Reactions: No Reported Reaction Past Psychological History: Anxiety Smoking Status: Never smoker Past Alcohol Use History: None Reported Past Drug Use History: None Reported - Past Family History Father Family Medical History: No Reported History General Exam Limitations: no limitations General appearance: alert, in no apparent distress, obese Head exam: Present: atraumatic, normocephalic Eye exam: Present: normal appearance. Absent: scleral icterus, conjunctival injection ENT exam: Present: other (Cobblestoning of the pharynx) Neck exam: Present: normal inspection, full ROM Respiratory exam: Present: normal lung sounds bilaterally, wheezes. Absent: respiratory distress, rales, rhonchi, stridor Cardiovascular Exam: Present: regular rate, normal rhythm, normal heart sounds. Absent: systolic murmur, diastolic murmur, rubs, gallop GI/Abdominal exam: Present: soft. Absent: distended, tenderness, guarding, rebound, rigid, mass Extremities exam: Present: normal inspection, normal capillary refill. Absent: pedal edema, calf tenderness Back exam: Present: normal inspection. Absent: CVA tenderness (R), CVA tenderness (L) Skin exam: Present: warm, dry, intact, normal color. Absent: rash Course Vital Signs 06/05/17 06/05/17 06/05/17 21:24 23:33 23:42 Temperature 98.9 F Pulse Rate 89 88 92 Respiratory 18 Rate Blood Pressure 137/92 O2 Sat by Pulse 98 Oximetry Disposition Clinical Impression: Bronchitis Disposition: HOME SELF-CARE Condition: Good Instructions: Acute Bronchitis (ED) Prescriptions: Promethazine 6.25MG/5Ml [Phenergan Syrup] 5 ml PO Q4HR PRN #120 ml PRN Reason: Cough Referrals: Marleny Farrell DO [Primary Care Provider] - 1-2 days
--- NOTE | 2017-06-05 23:37 | XR ---
EXAMINATION TYPE: XR chest 2V DATE OF EXAM: 06/05/2017 COMPARISON: EXAMINATION TYPE: XR chest 2V DATE OF EXAM: 06/05/2017 COMPARISON: 08/15/2016 HISTORY: Cough TECHNIQUE: 2 views FINDINGS: Heart and mediastinum are normal. Lungs are clear. Diaphragm is normal. Bony thorax is inta ct. Pulmonary vascularity is normal. IMPRESSION: Normal chest. There is clearing of the mild atelectasis in the left midlung compared to o ld exam.
[2017-06-06 00:49] VITALS: BP 145/89; PULSE 77; TEMP 98.4
== END 2017-06-06 00:54 | disposition home or self-care (01) ==
LOC: EC 21:20
DX: J40 Bronchitis, not specified as acute or chronic (principal); M79.7 Fibromyalgia; Z86.14 Personal history of Methicillin resistant Staphylococcus aureus infection; Z79.891 Long term (current) use of opiate analgesic; Z79.899 Other long term (current) drug therapy; Z88.1 Allergy status to other antibiotic agents; Z88.0 Allergy status to penicillin; Z88.2 Allergy status to sulfonamides; Z88.8 Allergy status to other drugs, medicaments and biological substances; Z91.048 Other nonmedicinal substance allergy status
CPT/HCPCS: 71046; 93005; 94640; 99283

== ENCOUNTER 2017-06-22 19:04 | Emergency (ER) | payer OTHER ==
[2017-06-22 19:35] VITALS: RESP 20
--- NOTE | 2017-06-22 22:07 | ED ---
General Adult HPI - General Chief complaint: Abdominal Pain Stated complaint: abdominal pain, boil on rt inner thigh Time Seen by Provider: 06/22/17 22:00 Source: patient, RN notes reviewed Mode of arrival: ambulatory Limitations: no limitations - History of Present Illness Initial comments: 41 yo female presents to the ER with cc of boil to the right inner groin area. She states she is also having some generalized pelvic discomfort with this as well. Patient states that there has been no nausea vomiting fever or chills with this. She denies any cough cold runny nose. Patient states that she is unable or stinging with urination. Patient states she is late for her menstrual cycle. She was concerned due to the groin abscess so she thought that she should be evaluated. Patient denies any other symptoms at this time. Patient denies any recent fever, chills, shortness of breath, chest pain, back pain, nausea vomiting, numbness or tingling, dysuria or hematuria, constipation or diarrhea, headaches or visual changes, or any other current symptoms. - Related Data Home Medications Medication Instructions Recorded Confirmed Morphine Sulfate Ir [MSIR] 15 mg PO BID 07/14/15 06/22/17 Morphine Sulfate ER [Ms Contin] 60 mg PO DAILY 04/09/17 06/22/17 valACYclovir HCL [Valtrex] 1,000 mg PO DAILY 04/09/17 06/22/17 Albuterol Inhaler [Ventolin Hfa 1 - 2 puff INHALATION RT-Q6H PRN 06/05/17 Inhaler] Morphine Sulfate ER [Ms Contin] 100 mg PO DAILY 06/05/17 06/22/17 Previous Rx's Medication Instructions Recorded glipiZIDE [Glucotrol] 5 mg PO AC-BID #60 tab 04/14/17 Promethazine 6.25MG/5Ml [Phenergan 5 ml PO Q4HR PRN #120 ml 06/06/17 Syrup] Clindamycin [Cleocin] 450 mg PO Q8HR #90 capsule 06/22/17 Allergies Allergy/AdvReac Type Severity Reaction Status Date / Time adhesive tape Allergy Severe Rash/Hives Verified 06/22/17 22:25 Cephalosporins Allergy Rash/Hives Verified 06/22/17 22:25 cortisone [Cortisone] Allergy Anaphylaxis Verified 06/22/17 22:25 diphenhydramine HCl Allergy Anaphylaxis Verified 06/22/17 22:25 [From Benadryl] doxycycline Allergy Rash/Hives Verified 06/22/17 22:25 Penicillins Allergy Anaphylaxis Verified 06/22/17 22:25 Quinolones Allergy Rash/Hives Verified 06/22/17 22:25 Sulfa (Sulfonamide Allergy Rash/Hives Verified 06/22/17 22:25 Antibiotics) Review of Systems ROS Statement: Those systems with pertinent positive or pertinent negative responses have been documented in the HPI. ROS Other: All systems not noted in ROS Statement are negative. Past Medical History Past Medical History: Diabetes Mellitus, Fibromyalgia, Hypertension Additional Past Medical History / Comment(s): DEGENERATIVE DISC DISEASE, kidney stones obesity History of Any Multi-Drug Resistant Organisms: MRSA Date of last positivie culture/infection: 07/04/01 MDRO Source:: Unknown Past Surgical History: Cholecystectomy, Hernia Repair Additional Past Surgical History / Comment(s): CATARACT SURGERY, kidney stents Past Anesthesia/Blood Transfusion Reactions: No Reported Reaction Past Psychological History: Anxiety Smoking Status: Never smoker Past Alcohol Use History: None Reported Past Drug Use History: None Reported - Past Family History Father Family Medical History: No Reported History General Exam Limitations: no limitations General appearance: alert, in no apparent distress Neck exam: Present: normal inspection. Absent: tenderness, meningismus, lymphadenopathy Respiratory exam: Present: normal lung sounds bilaterally. Absent: respiratory distress, wheezes, rales, rhonchi, stridor Cardiovascular Exam: Present: regular rate, normal rhythm, normal heart sounds. Absent: systolic murmur, diastolic murmur, rubs, gallop, clicks GI/Abdominal exam: Present: soft, normal bowel sounds. Absent: distended, tenderness, guarding, rebound, rigid Neurological exam: Present: alert, oriented X3 Psychiatric exam: Present: normal affect, normal mood Skin exam: Present: warm, dry, other (Patient appears to have an abscess to the right groin area.) Course Vital Signs 06/22/17 19:32 Temperature 97.8 F Pulse Rate 90 Respiratory 20 Rate Blood Pressure 157/97 O2 Sat by Pulse 99 Oximetry Procedures - Procedures Initial comment: Procedure: Incision and drainage The skin overlying the abscess was prepped with Betadine, and anesthetized with 1% lidocaine without epinephrine. A #11 scalpel was then used to incise the abscess. Some purulent material was then extracted from the lesion. Gauze dressing placed on top, The patient tolerated the procedure well. Medical Decision Making - Medical Decision Making 41-year-old female presents for right groin abscess. At this time patient underwent an I&D of the groin abscess. At this time we will start patient antibiotics. We did discuss follow-up with her doctor we did discuss return for hours all questions. We discussed abdominal pain as well as a be related to this abscess as well. Due to the fact that his lower pelvic pain. The patient is agreement this plan. All questions have been answered. She'll be discharged. - Lab Data Lab Results 06/22/17 06/22/17 Range/Units 22:25 22:25 Urine Color Light Yellow Urine Appearance Clear (Clear) Urine pH 5.0 (5.0-8.0) Ur Specific [place] 1.032 (1.001-1.035) Urine Protein 1+ H (Negative) Urine Glucose (UA) 4+ H (Negative) Urine Ketones Negative (Negative) Urine Blood Negative (Negative) Urine Nitrite Negative (Negative) Urine Bilirubin Negative (Negative) Urine Urobilinogen <2.0 (<2.0) mg/dL Ur Leukocyte Esterase Negative (Negative) Urine RBC 6 H (0-5) /hpf Urine WBC 9 H (0-5) /hpf Ur Squamous Epith Cells 7 H (0-4) /hpf Urine Yeast (Budding) Many H (None) /hpf Urine HCG, Qual Not Detected (Not Detectd) Disposition Clinical Impression: Abscess of right groin Disposition: HOME SELF-CARE Condition: Stable Instructions: Abscess (ED), Abscess Incision and Drainage (ED) Additional Instructions: Please use medication as discussed. Please follow up with family doctor if symptoms have not improved over the next two days. Please return to the emergency room if your symptoms increase or worsen or for any other concerns. Prescriptions: Clindamycin [Cleocin] 450 mg PO Q8HR #90 capsule Referrals: Marleny Farrell DO [Primary Care Provider] - 1-2 days Time of Disposition: 22:58
[2017-06-22 22:52] LABS: Appearance,Urine Clear (Clear); Bilirubin,Urine Negative (Negative); Blood,Urine Negative (Negative); Budding Yeast,Urine Many /hpf; Color,Urine Light Yellow; Glucose,Urine (UA) 4+ (Negative); Ketones,Urine Negative (Negative); Leukocyte Esterase,Urine Negative (Negative); Nitrite,Urine Negative (Negative); Protein,Urine 1+ (Negative); RBC,Urine 6 /hpf (0-5); Specific Gravity,Urine 1.032 (1.001-1.035); Squamous Epithelial Cell,Urine 7 /hpf (0-4); Urobilinogen,Urine <2.0 mg/dL (<2.0); WBC,Urine 9 /hpf (0-5)
[2017-06-22 23:16] VITALS: BP 162/88; PULSE 88; TEMP 97.6
== END 2017-06-22 23:05 | disposition home or self-care (01) ==
LOC: EC 19:04
DX: L02.214 Cutaneous abscess of groin (principal); R10.2 Pelvic and perineal pain; M79.7 Fibromyalgia; Z86.14 Personal history of Methicillin resistant Staphylococcus aureus infection; Z79.899 Other long term (current) drug therapy; Z79.891 Long term (current) use of opiate analgesic; Z88.1 Allergy status to other antibiotic agents; Z88.0 Allergy status to penicillin; Z88.2 Allergy status to sulfonamides; Z88.8 Allergy status to other drugs, medicaments and biological substances; Z91.048 Other nonmedicinal substance allergy status
CPT/HCPCS: 10060; 81001; 81025; 87086; 99284

== ENCOUNTER 2017-06-24 14:27 | Emergency (ER) | payer OTHER ==
[2017-06-24] MEDS ORDERED: SODIUM CHLORIDE 0.9% 1,000 ML IV STA ×2 (15:17)
[2017-06-24] MEDS ORDERED: ONDANSETRON 4 MG/2 ML VIAL IVP STA (15:17)
[2017-06-24] MEDS ORDERED: HYDROmorphone 0.5 MG/0.5 ML SYRINGE IVP STA (15:17)
--- NOTE | 2017-06-24 15:25 | ED ---
General Adult HPI - General Chief complaint: Skin/Abscess/Foreign Body Stated complaint: Poss Infection Time Seen by Provider: 06/24/17 15:02 Source: patient, family, RN notes reviewed, old records reviewed Mode of arrival: EMS Limitations: no limitations - History of Present Illness Initial comments: Chief complaint and history of present illness this is a 41-year-old female here with his significant other. The patient is here because of the sided abdominal pain. Patient also recently had an abscess drained in the right perineum area. She is placed on clindamycin. She has multiple ALLERGIES. The patient has been scheduled to have a CAT scan of the abdomen in 2 days in preparation for abdominal surgery for scar revision and possible hernia repair. Patient's been nauseated but no vomiting no diarrhea. Decreased appetite. Denies fever. Checks her blood sugar every other day approximately 240. She states she takes oral antidiabetic pills. - Related Data Home Medications Medication Instructions Recorded Confirmed Morphine Sulfate Ir [MSIR] 15 mg PO BID 07/14/15 06/24/17 Morphine Sulfate ER [Ms Contin] 60 mg PO DAILY 04/09/17 06/24/17 valACYclovir HCL [Valtrex] 1,000 mg PO DAILY 04/09/17 06/24/17 Albuterol Inhaler [Ventolin Hfa 1 - 2 puff INHALATION RT-Q6H PRN 06/05/17 Inhaler] Morphine Sulfate ER [Ms Contin] 100 mg PO DAILY 06/05/17 06/24/17 Previous Rx's Medication Instructions Recorded glipiZIDE [Glucotrol] 5 mg PO AC-BID #60 tab 04/14/17 Clindamycin [Cleocin] 450 mg PO Q8HR #90 capsule 06/22/17 Hydrocodone/Acetaminophen [[place] 1 each PO Q6HR PRN #6 tab 06/24/17 5-325] Allergies Allergy/AdvReac Type Severity Reaction Status Date / Time adhesive tape Allergy Severe Rash/Hives Verified 06/24/17 14:45 Cephalosporins Allergy Rash/Hives Verified 06/24/17 14:45 cortisone [Cortisone] Allergy Anaphylaxis Verified 06/24/17 14:45 diphenhydramine HCl Allergy Anaphylaxis Verified 06/24/17 14:45 [From Benadryl] doxycycline Allergy Rash/Hives Verified 06/24/17 14:45 Penicillins Allergy Anaphylaxis Verified 06/24/17 14:45 Quinolones Allergy Rash/Hives Verified 06/24/17 14:45 Sulfa (Sulfonamide Allergy Rash/Hives Verified 06/24/17 14:45 Antibiotics) Review of Systems ROS Statement: Those systems with pertinent positive or pertinent negative responses have been documented in the HPI. Review of systems no headache or visual acuity changes no stiff neck no chest pain or shortness of breath. States she has had on-again off-again some chills for 2 days. No fever noted here. Nausea but no vomiting no diarrhea. Discomfort to the left side of the abdomen from her left flank down the left lower area of her abdomen. She's had multiple surgeries for hernia repairs. Patient also has had kidney stone problems and a stent placed 6 years ago for kidney stones. Patient denies any neuro deficits. No diarrhea. All systems are reviewed. Past medical problems significant for non-insulin diabetes mellitus. 5 myalgia, hypertension, degenerative disc disease in her neck and back. Surgeries include kidney stone stent, cholecystectomy, multiple hernia repairs. Cataract surgery bilaterally when she was much younger. Family history includes cancers of leukemia, breast and colon. Patient has ALLERGIES to adhesive tape, cephalosporins, cortisone, diphenhydramine, doxycycline, penicillins, quinolones. Patient's nonsmoker nondrinker. ROS Other: All systems not noted in ROS Statement are negative. Past Medical History Past Medical History: Diabetes Mellitus, Fibromyalgia, Hypertension Additional Past Medical History / Comment(s): DEGENERATIVE DISC DISEASE, kidney stones obesity History of Any Multi-Drug Resistant Organisms: MRSA Date of last positivie culture/infection: 07/04/01 MDRO Source:: gallbladder Past Surgical History: Cholecystectomy, Hernia Repair Additional Past Surgical History / Comment(s): CATARACT SURGERY, kidney stents Past Anesthesia/Blood Transfusion Reactions: No Reported Reaction Past Psychological History: Anxiety Smoking Status: Never smoker Past Alcohol Use History: None Reported Past Drug Use History: None Reported - Past Family History Father Family Medical History: No Reported History General Exam - General Exam Comments Initial Comments: General: The patient is awake and alert, patient given by and also because of pain to the abdomen. Vital signs temp 97.8 pulse 87 respiratory rate 18 pulse ox on percent room air blood pressure 135/60 Eye: Pupils are equal, round and reactive to light, extra-ocular movements are intact ; there is normal conjunctiva bilaterally. No signs of icterus. Ears, nose, mouth and throat: There are moist mucous membranes and no oral lesions. Neck: The neck is supple, there is no tenderness . Cardiovascular: There is a regular rate and rhythm. No murmur, rub or gallop is appreciated. Respiratory: Lungs are clear to auscultation, respirations are non-labored, breath sounds are equal. No wheezes, stridor, rales, or rhonchi. Gastrointestinal: Patient complains discomfort with even mild palpation over the left side of the abdomen. Patient's morbidly obese an excess of 330 pounds history of multiple hernia repairs on the abdominal wall. Patient had an abscess drained on the right perineum area. This area looks reddened but appears to be contained to readily small area. They're changing the bandages often. Back: Denies back pain. Musculoskeletal: Normal ROM, no tenderness, There is no pedal edema. There is no calf tenderness or swelling. Neurological: No neuro deficits Skin: Skin is warm and dry and no rashes or lesions are noted. Limitations: no limitations Course Vital Signs 06/24/17 06/24/17 14:31 17:32 Temperature 97.8 F 97.9 F Pulse Rate 87 95 Respiratory 18 18 Rate Blood Pressure 135/60 127/66 O2 Sat by Pulse 100 96 Oximetry Medical Decision Making - Medical Decision Making Medical decision making; 41-year-old female who was in emergency room 2 days ago had incision and drainage of an abscess in the right perineum area. Since then she developed pain on the left side of the abdomen. She does have CAT scan scheduled in 2 days for evaluation for abdominal pain. She's had multiple surgeries with multiple hernia repairs. Also scheduled to have a large surgical scar repaired post cholecystectomy. Patient reports having severe pain on the left side of her abdomen. Labs show white count of 4.2 hemoglobin 14 hematocrit of 43. Urine shows 4+ glucose and 2+ ketones. She states she is only able to eat toast has no appetite and nauseated but no vomiting. Urinalysis shows 1 red 5 whites. Culture is pending. The patient's potassium is 4.1. BUN 8 creatinine 0.6 with a GFR greater than 60. Glucose 292. Patient reports that this is in normal range for her. She takes oral antidiabetic medications and does have available to her [facility] to be taken when he gets significantly higher. But she states that 250 range is her normal range. Amylase and lipase within normal limits. The patient is being rehydrated via IV. X-ray of the abdomen was done and reviewed by radiologist and his findings are; , scattered gas is seen in nondistended small bowel loops. Gas and fecal material is seen in nondistended colon. There is no visceromegaly, pneumoperitoneum, or abnormal calcifications appreciated. Lung bases are clear and the osseous structures are intact. Surgical clips are seen in the gallbladder fossa. Impression overall nonobstructive bowel gas pattern. As read by Dr. Tena overall nonobstructive bowel gas pattern as read by Dr. Tena Patient states that she has an ALLERGY to cortisone makes her itch, diphenhydramine is anaphylactic type reaction. On prior CAT scans with iodine she has been premedicated. It appears as though the only medication would be Pepcid . Patient also states she thinks she's had iodine since a previous reaction and she did not react. Patient had no difficulties with the CAT scan with oral and IV contrast. The results and final impression per radiologist is no significant findings. Significant to her complaints is no significant abnormalities abnormality seen in the bowel the appendix is visualized and appear to be normal. Physiologic changes are identified to the left ovary. The uterus is present. All other findings were described as being within normal limits. We discussed some discomfort possibly caused by ovarian cyst but is no evidence of free fluid or rupture. The patient will be following up with her general surgeon within the week. Patient reports she has no trouble with bowel habits or urinating. Advised to call for an earlier appointment with her general surgeon or return emergency room as needed. Continue with warm soaks to the draining abscess on the right inner proximal thigh which is healing nicely. Continue on her antibioticsclindamycin. - Lab Data Result diagrams: 06/24/17 15:40 06/24/17 15:40 Lab Results 06/24/17 06/24/17 06/24/17 Range/Units 15:40 15:40 15:40 WBC 4.2 (3.8-10.6) k/uL RBC 5.05 (3.80-5.40) m/uL Hgb 14.7 (11.4-16.0) gm/dL Hct 43.1 (34.0-46.0) % MCV 85.2 (80.0-100.0) fL MCH 29.0 (25.0-35.0) pg MCHC 34.0 (31.0-37.0) g/dL RDW 12.8 (11.5-15.5) % Plt Count 175 (150-450) k/uL Neutrophils % 64 % Lymphocytes % 27 % Monocytes % 7 % Eosinophils % 0 % Basophils % 1 % Neutrophils # 2.6 (1.3-7.7) k/uL Lymphocytes # 1.1 (1.0-4.8) k/uL Monocytes # 0.3 (0-1.0) k/uL Eosinophils # 0.0 (0-0.7) k/uL Basophils # 0.0 (0-0.2) k/uL Sodium 137 (137-145) mmol/L Potassium 4.1 (3.5-5.1) mmol/L Chloride 100 (98-107) mmol/L Carbon Dioxide 25 (22-30) mmol/L Anion Gap 12 mmol/L BUN 8 (7-17) mg/dL Creatinine 0.60 (0.52-1.04) mg/dL Est GFR (MDRD) Af Amer >60 (>60 ml/min/1.73 sqM) Est GFR (MDRD) Non-Af >60 (>60 ml/min/1.73 sqM) Glucose 292 H (74-99) mg/dL Plasma Lactic Acid [place] 1.3 (0.7-2.0) mmol/L Calcium 9.3 (8.4-10.2) mg/dL Total Bilirubin 0.6 (0.2-1.3) mg/dL AST 32 (14-36) U/L ALT 41 (9-52) U/L Alkaline Phosphatase 96 (38-126) U/L Total Protein 6.6 (6.3-8.2) g/dL Albumin 3.5 (3.5-5.0) g/dL Amylase 31 (30-110) U/L Lipase 73 (23-300) U/L Urine Color Urine Appearance (Clear) Urine pH (5.0-8.0) Ur Specific [place] (1.001-1.035) Urine Protein (Negative) Urine Glucose (UA) (Negative) Urine Ketones (Negative) Urine Blood (Negative) Urine Nitrite (Negative) Urine Bilirubin (Negative) Urine Urobilinogen (<2.0) mg/dL Ur Leukocyte Esterase (Negative) Urine RBC (0-5) /hpf Urine WBC (0-5) /hpf Ur Squamous Epith Cells (0-4) /hpf Urine Bacteria (None) /hpf Urine Mucus (None) /hpf Urine Yeast (Budding) (None) /hpf 06/24/17 Range/Units 15:40 WBC (3.8-10.6) k/uL RBC (3.80-5.40) m/uL Hgb (11.4-16.0) gm/dL Hct (34.0-46.0) % MCV (80.0-100.0) fL MCH (25.0-35.0) pg MCHC (31.0-37.0) g/dL RDW (11.5-15.5) % Plt Count (150-450) k/uL Neutrophils % % Lymphocytes % % Monocytes % % Eosinophils % % Basophils % % Neutrophils # (1.3-7.7) k/uL Lymphocytes # (1.0-4.8) k/uL Monocytes # (0-1.0) k/uL Eosinophils # (0-0.7) k/uL Basophils # (0-0.2) k/uL Sodium (137-145) mmol/L Potassium (3.5-5.1) mmol/L Chloride (98-107) mmol/L Carbon Dioxide (22-30) mmol/L Anion Gap mmol/L BUN (7-17) mg/dL Creatinine (0.52-1.04) mg/dL Est GFR (MDRD) Af Amer (>60 ml/min/1.73 sqM) Est GFR (MDRD) Non-Af (>60 ml/min/1.73 sqM) Glucose (74-99) mg/dL Plasma Lactic Acid [place] (0.7-2.0) mmol/L Calcium (8.4-10.2) mg/dL Total Bilirubin (0.2-1.3) mg/dL AST (14-36) U/L ALT (9-52) U/L Alkaline Phosphatase (38-126) U/L Total Protein (6.3-8.2) g/dL Albumin (3.5-5.0) g/dL Amylase (30-110) U/L Lipase (23-300) U/L Urine Color Yellow Urine Appearance Clear (Clear) Urine pH 7.0 (5.0-8.0) Ur Specific [place] 1.030 (1.001-1.035) Urine Protein 2+ H (Negative) Urine Glucose (UA) 4+ H (Negative) Urine Ketones 2+ H (Negative) Urine Blood Negative (Negative) Urine Nitrite Negative (Negative) Urine Bilirubin Negative (Negative) Urine Urobilinogen <2.0 (<2.0) mg/dL Ur Leukocyte Esterase Trace H (Negative) Urine RBC 1 (0-5) /hpf Urine WBC 5 (0-5) /hpf Ur Squamous Epith Cells 3 (0-4) /hpf Urine Bacteria Rare H (None) /hpf Urine Mucus Rare H (None) /hpf Urine Yeast (Budding) Many H (None) /hpf Disposition Clinical Impression: Abdominal pain Disposition: HOME SELF-CARE Condition: Fair Instructions: Abdominal Pain (ED) Additional Instructions: Stay well-hydrated. Continue with medications as directed call follow-up. General surgeon or family doctor. Return emergency room as needed. Prescriptions: Hydrocodone/Acetaminophen [[place] 5-325] 1 each PO Q6HR PRN #6 tab PRN Reason: Pain Referrals: Marleny Farrell DO [Primary Care Provider] - 1-2 days Time of Disposition: 20:13
[2017-06-24 16:12] LABS: Appearance,Urine Clear (Clear); Bacteria,Urine Rare /hpf; Bilirubin,Urine Negative (Negative); Blood,Urine Negative (Negative); Budding Yeast,Urine Many /hpf; Color,Urine Yellow; Glucose,Urine (UA) 4+ (Negative); Leukocyte Esterase,Urine Trace (Negative); Mucus,Urine Rare /hpf; Nitrite,Urine Negative (Negative); Protein,Urine 2+ (Negative); RBC,Urine 1 /hpf (0-5); Squamous Epithelial Cell,Urine 3 /hpf (0-4); Urobilinogen,Urine <2.0 mg/dL (<2.0); WBC,Urine 5 /hpf (0-5)
[2017-06-24 16:13] LABS: Basophils % (A) 1 %; Eosinophils % (A) 0 %; HCT 43.1 % (34.0-46.0); HGB 14.7 gm/dL (11.4-16.0); Lymphocytes # (A) 1.1 k/uL (1.0-4.8); Lymphocytes % (A) 27 %; MCV 85.2 fL (80.0-100.0); Mean Platelet Volume 7.9; Monocytes # (A) 0.3 k/uL (0-1.0); Monocytes % (A) 7 %; Neutrophils # (A) 2.6 k/uL (1.3-7.7); Neutrophils % (A) 64 %; Platelet Count 175 k/uL (150-450); RBC 5.05 m/uL (3.80-5.40); RDW 12.8 % (11.5-15.5); WBC 4.2 k/uL (3.8-10.6)
[2017-06-24 16:14] LABS: Ketones,Urine 2+ (Negative)
[2017-06-24 16:15] LABS: ALT 41 U/L (9-52); AST 32 U/L (14-36); Albumin 3.5 g/dL (3.5-5.0); Alkaline Phosphatase 96 U/L (38-126); Amylase 31 U/L (30-110); Anion Gap 12 mmol/L; Blood Urea Nitrogen 8 mg/dL (7-17); Calcium 9.3 mg/dL (8.4-10.2); Carbon Dioxide 25 mmol/L (22-30); Chloride 100 mmol/L (98-107); Glucose 292 mg/dL (74-99); Lipase 73 U/L (23-300); Potassium 4.1 mmol/L (3.5-5.1); Sodium 137 mmol/L (137-145); Total Bilirubin 0.6 mg/dL (0.2-1.3); Total Protein 6.6 g/dL (6.3-8.2)
--- NOTE | 2017-06-24 16:40 | XR ---
EXAMINATION TYPE: XR abdomen 2V DATE OF EXAM: 06/24/2017 4:27 PM CLINICAL HISTORY: Abdominal pain TECHNIQUE: Single supine KUB image of the abdomen is obtained. COMPARISON: None. FINDINGS: Scattered gas is seen in non-distended small bowel loops. Gas and fecal material is seen in non-distended colon. There is no visceromegaly, pneumoperitoneum, or abnormal calcification apprecia ruma. The lung bases are clear and the osseous structures are intact. Surgical clips are seen in the g allbladder fossa. IMPRESSION: Overall nonobstructive bowel gas pattern.
[2017-06-24] MEDS ORDERED: RX INFO: IV CONTRAST WAS GIVEN 1 EACH MISC MISCELLANE PRN (16:46)
[2017-06-24] MEDS ORDERED: IOHEXOL 350 MG/ML 25 ML BOTTLE (ORAL USE) PO PRN (16:46)
[2017-06-24] MEDS ORDERED: HYDROmorphone 2 MG/ML 1 ML SYRINGE IVP STA (16:47)
[2017-06-24] MEDS ORDERED: FAMOTIDINE 20 MG/2 ML VIAL IV STA (17:34)
--- NOTE | 2017-06-24 19:46 | CT ---
EXAMINATION TYPE: CT abdomen pelvis w con DATE OF EXAM: 06/24/2017 COMPARISON: NONE HISTORY: Severe left sided abdominal pain. CT DLP: 4072.6 mGycm Automated exposure control for dose reduction was used. TECHNIQUE: Helical acquisition of images was performed from the lung bases through the pelvis. CONTRAST: Performed with Oral Contrast and with IV Contrast, patient injected with 100 mL of Omnipaque 300. FINDINGS: LUNG BASES: No significant abnormality is appreciated. LIVER/GB: No significant abnormality is appreciated. Gallbladder surgically absent. PANCREAS: No significant abnormality is seen. SPLEEN: No significant abnormality is seen. ADRENALS: No significant abnormality is seen. KIDNEYS: No significant abnormality is seen. FREE AIR: No free air is visualized. RETROPERITONEAL ADENOPATHY: None visualized REPRODUCTIVE ORGANS: No significant abnormality is seen URINARY BLADDER: No significant abnormality is seen. PELVIC ADENOPATHY: None visualized. OSSEOUS STRUCTURES: No significant abnormality is seen. BOWEL: No significant abnormality is seen. The appendix is visualized, and is normal. OTHER: Physiologic changes are identified in the left ovary. The uterus is present. IMPRESSION: NO SIGNIFICANT FINDINGS.
[2017-06-24 20:22] VITALS: BP 122/72; PULSE 64; RESP 16; TEMP 97.7
== END 2017-06-24 20:55 | disposition home or self-care (01) ==
LOC: EC 14:27
DX: R10.9 Unspecified abdominal pain (principal); R81 Glycosuria; R82.4 Acetonuria; R11.0 Nausea; R63.8 Other symptoms and signs concerning food and fluid intake; E66.9 Obesity, unspecified; Z79.891 Long term (current) use of opiate analgesic; Z79.899 Other long term (current) drug therapy; Z88.0 Allergy status to penicillin; Z88.1 Allergy status to other antibiotic agents; Z88.5 Allergy status to narcotic agent; Z88.8 Allergy status to other drugs, medicaments and biological substances; Z91.09 Other allergy status, other than to drugs and biological substances; Z86.14 Personal history of Methicillin resistant Staphylococcus aureus infection; Z87.39 Personal history of other diseases of the musculoskeletal system and connective tissue; Z90.49 Acquired absence of other specified parts of digestive tract; Z98.890 Other specified postprocedural states; Z68.42 Body mass index [BMI] 45.0-49.9, adult
CPT/HCPCS: 99285; 96374; 96375 ×2; 96376; 96361 ×5; 36415; 80053; 82150; 83605; 83690; 85025; 81001; 87086; 74019; 74177; J1170 ×2; J2405; Q9967

== ENCOUNTER 2017-06-26 21:01 | Emergency (ER) | payer OTHER ==
[2017-06-26 21:08] VITALS: BP 136/83; PULSE 97; RESP 20; TEMP 97.3
--- NOTE | 2017-06-26 21:18 | ED ---
Skin/Abscess/FB HPI - General Chief complaint: Skin/Abscess/Foreign Body Stated complaint: infection Time Seen by Provider: 06/26/17 21:17 Source: patient Mode of arrival: wheelchair Limitations: no limitations - History of Present Illness Initial comments: Patient presents for wound check of recent abscess that was I indeed in the ER 5 days ago. Patient has been on clindamycin for the past 5 days. Patient is a diabetic, states glucose has been well-controlled. Patient states she has noticed some green drainage from the area, still has pain in the area. Patient denies fevers, chills, nausea, vomiting, abdominal pain. - Related Data Home Medications Medication Instructions Recorded Confirmed Morphine Sulfate Ir [MSIR] 15 mg PO BID 07/14/15 06/26/17 Morphine Sulfate ER [Ms Contin] 60 mg PO DAILY 04/09/17 06/26/17 valACYclovir HCL [Valtrex] 1,000 mg PO DAILY 04/09/17 06/26/17 Albuterol Inhaler [Ventolin Hfa 1 - 2 puff INHALATION RT-Q6H PRN 06/05/17 Inhaler] Morphine Sulfate ER [Ms Contin] 100 mg PO DAILY 06/05/17 06/26/17 Hydrocodone/Acetaminophen [[place] 1 tab PO Q6HR PRN 06/26/17 06/26/17 5-325] Previous Rx's Medication Instructions Recorded glipiZIDE [Glucotrol] 5 mg PO AC-BID #60 tab 04/14/17 Clindamycin [Cleocin] 450 mg PO Q8HR #90 capsule 06/22/17 Allergies Allergy/AdvReac Type Severity Reaction Status Date / Time adhesive tape Allergy Severe Rash/Hives Verified 06/26/17 21:31 Cephalosporins Allergy Rash/Hives Verified 06/26/17 21:31 cortisone [Cortisone] Allergy Anaphylaxis Verified 06/26/17 21:31 diphenhydramine HCl Allergy Anaphylaxis Verified 06/26/17 21:31 [From Benadryl] doxycycline Allergy Rash/Hives Verified 06/26/17 21:31 Penicillins Allergy Anaphylaxis Verified 06/26/17 21:31 Quinolones Allergy Rash/Hives Verified 06/26/17 21:31 Sulfa (Sulfonamide Allergy Rash/Hives Verified 06/26/17 21:31 Antibiotics) Review of Systems ROS Statement: Those systems with pertinent positive or pertinent negative responses have been documented in the HPI. ROS Other: All systems not noted in ROS Statement are negative. Constitutional: Denies: fever, chills, weakness, night sweats Respiratory: Denies: cough Cardiovascular: Denies: chest pain Endocrine: Denies: fatigue Gastrointestinal: Denies: abdominal pain, nausea, vomiting Skin: Reports: lesions. Denies: rash Neurological: Denies: headache, confusion Past Medical History Past Medical History: Diabetes Mellitus, Fibromyalgia, Hypertension Additional Past Medical History / Comment(s): DEGENERATIVE DISC DISEASE, kidney stones obesity History of Any Multi-Drug Resistant Organisms: MRSA Date of last positivie culture/infection: 07/04/01 MDRO Source:: gallbladder Past Surgical History: Cholecystectomy, Hernia Repair Additional Past Surgical History / Comment(s): CATARACT SURGERY, kidney stents Past Anesthesia/Blood Transfusion Reactions: No Reported Reaction Past Psychological History: Anxiety Smoking Status: Never smoker Past Alcohol Use History: None Reported Past Drug Use History: None Reported - Past Family History Father Family Medical History: No Reported History General Exam - General Exam Comments Initial Comments: Laying in bed smiling. Not ill appearing. Does not appear in pain. Calm, pleasant. Obese. Limitations: no limitations General appearance: alert, in no apparent distress Head exam: Present: atraumatic, normocephalic Eye exam: Present: normal appearance, PERRL, EOMI ENT exam: Present: mucous membranes moist Neck exam: Present: normal inspection Respiratory exam: Present: normal lung sounds bilaterally. Absent: respiratory distress, wheezes, rales Cardiovascular Exam: Present: regular rate, normal rhythm GI/Abdominal exam: Present: soft, other (Obese. Nontender. No erythema or areas of fluctuance on the abdomen appreciated. Nontender abdomen.). Absent: distended, tenderness, guarding, rebound, rigid External exam: Present: other (External vaginal exam appears normal, no signs of infection or drainage in the vaginal area.). Absent: erythema, swelling, lesions Neurological exam: Present: alert, oriented X3 Psychiatric exam: Present: normal affect, normal mood Skin exam: Present: warm, dry, other (Proximally 1.5 cm diameter open incision right medial proximal thigh. Minimal drainage. No bleeding. Minimal surrounding erythema. Wound explored with Q-tips, approximately 1 cm deep, no tracking or loculations.) Course Vital Signs 06/26/17 21:05 Temperature 97.3 F L Pulse Rate 97 Respiratory 20 Rate Blood Pressure 136/83 O2 Sat by Pulse 99 Oximetry Medical Decision Making - Medical Decision Making Nurse present for chaperoned during examination Patient presents for wound check. Wound appears open and draining, minimal amounts of pus and erythema. Wound does not appear to track up into the leg, groin, abdomen or other areas. At this time wound appears in healing stages. Patient does not have any systemic signs of infection. Patient is afebrile. Discussed routine bandage changes, which patient has been doing. Patient had clean bandage applied from home at time of initial evaluation. Patient agrees to have regular wound checks by her primary care physician. States she also has seen surgeon Dr. Tijerina in the past she can go to for wound check. At this time and do not believe patient has signs of any perirectal, perianal Pok, perennial abscess or any signs of tracking up into the pelvic or abdominal region. I believe patient has localized abscess that has draining well following I&D in the ER. Patient to continue clindamycin. Follow primary care physician for regular wound checks. Return to ER for new or worsening symptoms including fevers, chills, nausea, vomiting. Patient understands and agrees. We 'll discharge home. Disposition Clinical Impression: Thigh abscess Disposition: HOME SELF-CARE Condition: Good Instructions: Abscess Incision and Drainage (ED) Additional Instructions: Follow-up your primary care physician and surgeon Dr. Tijerina for regular wound checks. Return to ER for new or worsening symptoms including fever, chills, nausea, vomiting. Referrals: Marleny Farrell DO [Primary Care Provider] - 1-2 days
== END 2017-06-26 22:00 | disposition home or self-care (01) ==
LOC: EC 21:01
DX: L02.415 Cutaneous abscess of right lower limb (principal); M79.7 Fibromyalgia; I10 Essential (primary) hypertension; E66.9 Obesity, unspecified; Z68.42 Body mass index [BMI] 45.0-49.9, adult; Z86.14 Personal history of Methicillin resistant Staphylococcus aureus infection; F41.9 Anxiety disorder, unspecified; Z79.891 Long term (current) use of opiate analgesic; Z88.0 Allergy status to penicillin; Z88.1 Allergy status to other antibiotic agents; Z88.2 Allergy status to sulfonamides; Z88.8 Allergy status to other drugs, medicaments and biological substances; Z91.048 Other nonmedicinal substance allergy status
CPT/HCPCS: 99282

== ENCOUNTER 2017-07-13 11:54 | Emergency (ER) | payer OTHER ==
[2017-07-13] MEDS ORDERED: ONDANSETRON 4 MG/2 ML VIAL IVP STA (12:21)
[2017-07-13] MEDS ORDERED: SODIUM CHLORIDE 0.9% 1,000 ML IV STA ×2 (12:21→15:32)
--- NOTE | 2017-07-13 12:31 | ED ---
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 Patient does admit to a history of seizures but states been 7 years since last seizure. Currently not on any seizure medication. She states she was driving and believes that she had just gone to her destination when she had a seizure. States Her was with her. States She remembers was waking up to EMS and getting her on a car. She states she did bite her tongue. She admits to some pain to the left thigh. States that it feels like the muscle are tight. Denies any other complaint or symptoms. Patient denies any recent fever, chills, shortness of breath, chest pain, back pain, abdominal pain, vomiting, constipation or diarrhea, headaches or visual changes, or any other complaints. - Related Data Home Medications Medication Instructions Recorded Confirmed Morphine Sulfate Ir [MSIR] 15 mg PO BID 07/14/15 07/13/17 Morphine Sulfate ER [Ms Contin] 60 mg PO DAILY 04/09/17 07/13/17 valACYclovir HCL [Valtrex] 1,000 mg PO DAILY 04/09/17 07/13/17 Albuterol Inhaler [Ventolin Hfa 1 - 2 puff INHALATION RT-Q6H PRN 06/05/17 Inhaler] Morphine Sulfate ER [Ms Contin] 100 mg PO DAILY 06/05/17 07/13/17 Previous Rx's Medication Instructions Recorded glipiZIDE [Glucotrol] 5 mg PO AC-BID #60 tab 04/14/17 Allergies Allergy/AdvReac Type Severity Reaction Status Date / Time adhesive tape Allergy Severe Rash/Hives Verified 07/13/17 12:14 Cephalosporins Allergy Rash/Hives Verified 07/13/17 12:14 cortisone [Cortisone] Allergy Anaphylaxis Verified 07/13/17 12:14 diphenhydramine HCl Allergy Anaphylaxis Verified 07/13/17 12:14 [From Benadryl] doxycycline Allergy Rash/Hives Verified 07/13/17 12:14 Penicillins Allergy Anaphylaxis Verified 07/13/17 12:14 Quinolones Allergy Rash/Hives Verified 07/13/17 12:14 Sulfa (Sulfonamide Allergy Rash/Hives Verified 07/13/17 12:14 Antibiotics) Review of Systems ROS Statement: Those systems with pertinent positive or pertinent negative responses have been documented in the HPI. ROS Other: All systems not noted in ROS Statement are negative. Past Medical History Past Medical History: Diabetes Mellitus, Fibromyalgia, Hypertension Additional Past Medical History / Comment(s): DEGENERATIVE DISC DISEASE, kidney stones obesity History of Any Multi-Drug Resistant Organisms: MRSA Date of last positivie culture/infection: 07/04/01 MDRO Source:: gallbladder Past Surgical History: Cholecystectomy, Hernia Repair Additional Past Surgical History / Comment(s): CATARACT SURGERY, kidney stents Past Anesthesia/Blood Transfusion Reactions: No Reported Reaction Past Psychological History: Anxiety Smoking Status: Never smoker Past Alcohol Use History: None Reported Past Drug Use History: None Reported - Past Family History Father Family Medical History: No Reported History General Exam - General Exam Comments Initial Comments: General: The patient is awake and alert, in no distress, and does not appear acutely ill. Eye: Pupils are equal, round and reactive to light, extra-ocular movements are intact. No nystagmus. There is normal conjunctiva bilaterally. No signs of icterus. Ears, nose, mouth and throat: There are moist mucous membranes and no oral lesions. small tongue biting tot he the right side. No bleeding. Neck: The neck is supple, there is no tenderness or JVD. Cardiovascular: There is a regular rate and rhythm. No murmur, rub or gallop is appreciated. Respiratory: Lungs are clear to auscultation, respirations are non-labored, breath sounds are equal. No wheezes, stridor, rales, or rhonchi. Musculoskeletal: Normal ROM, no tenderness. Strength 5/5. Sensation intact. Pulses equal bilaterally 2+. Neurological: A&O x 3. CN II-XII intact, There are no obvious motor or sensory deficits. Coordination appears grossly intact. Speech is normal. Skin: Skin is warm and dry and no rashes or lesions are noted. Psychiatric: Cooperative, appropriate mood & affect, normal judgment. Limitations: no limitations Course Vital Signs 07/13/17 07/13/17 12:05 14:07 Temperature 98.7 F 99.0 F Pulse Rate 99 100 Respiratory 18 16 Rate Blood Pressure 140/87 109/55 O2 Sat by Pulse 98 94 L Oximetry Medical Decision Making - Medical Decision Making Patient reexamined at this time shows no signs of distress. She does admit to having a seizure earlier today. I did discuss with her was out at bedside who describes seizure activity. They're able to stop the car without any car accident. Patient's been advised that she cannot drive for at least 6 months or less cleared by neurologist or family physician. Patient at this time is asymptomatic doing well. Her labs been reviewed mildly elevated blood glucose. She states she's had just eaten prior to coming in. She is on medications for her diabetes. She is advised follow-up family doctor and neurologist over the next 2 days. Advised return here if any symptoms increase worsen. - Lab Data Result diagrams: 07/13/17 12:42 07/13/17 12:42 Lab Results 07/13/17 07/13/17 07/13/17 Range/Units 12:42 12:42 13:27 WBC 6.7 (3.8-10.6) k/uL RBC 5.21 (3.80-5.40) m/uL Hgb 14.9 (11.4-16.0) gm/dL Hct 44.2 (34.0-46.0) % MCV 84.9 (80.0-100.0) fL MCH 28.6 (25.0-35.0) pg MCHC 33.7 (31.0-37.0) g/dL RDW 13.2 (11.5-15.5) % Plt Count 223 (150-450) k/uL Neutrophils % 74 % Lymphocytes % 19 % Monocytes % 5 % Eosinophils % 0 % Basophils % 1 % Neutrophils # 5.0 (1.3-7.7) k/uL Lymphocytes # 1.3 (1.0-4.8) k/uL Monocytes # 0.3 (0-1.0) k/uL Eosinophils # 0.0 (0-0.7) k/uL Basophils # 0.0 (0-0.2) k/uL Sodium 137 (137-145) mmol/L Potassium 4.3 (3.5-5.1) mmol/L Chloride 103 (98-107) mmol/L Carbon Dioxide 23 (22-30) mmol/L Anion Gap 11 mmol/L BUN 12 (7-17) mg/dL Creatinine 0.50 L (0.52-1.04) mg/dL Est GFR (MDRD) Af Amer >60 (>60 ml/min/1.73 sqM) Est GFR (MDRD) Non-Af >60 (>60 ml/min/1.73 sqM) Glucose 328 H (74-99) mg/dL Calcium 9.8 (8.4-10.2) mg/dL Total Bilirubin 0.7 (0.2-1.3) mg/dL AST 32 (14-36) U/L ALT 44 (9-52) U/L Alkaline Phosphatase 79 (38-126) U/L Total Protein 7.1 (6.3-8.2) g/dL Albumin 3.8 (3.5-5.0) g/dL Urine Color Urine Appearance (Clear) Urine pH (5.0-8.0) Ur Specific [place] (1.001-1.035) Urine Protein (Negative) Urine Glucose (UA) (Negative) Urine Ketones (Negative) Urine Blood (Negative) Urine Nitrite (Negative) Urine Bilirubin (Negative) Urine Urobilinogen (<2.0) mg/dL Ur Leukocyte Esterase (Negative) Urine RBC (0-5) /hpf Urine WBC (0-5) /hpf Ur Squamous Epith Cells (0-4) /hpf Urine Bacteria (None) /hpf Urine Mucus (None) /hpf Urine Yeast (Budding) (None) /hpf Urine HCG, Qual Not Detected (Not Detectd) 07/13/17 Range/Units 13:27 WBC (3.8-10.6) k/uL RBC (3.80-5.40) m/uL Hgb (11.4-16.0) gm/dL Hct (34.0-46.0) % MCV (80.0-100.0) fL MCH (25.0-35.0) pg MCHC (31.0-37.0) g/dL RDW (11.5-15.5) % Plt Count (150-450) k/uL Neutrophils % % Lymphocytes % % Monocytes % % Eosinophils % % Basophils % % Neutrophils # (1.3-7.7) k/uL Lymphocytes # (1.0-4.8) k/uL Monocytes # (0-1.0) k/uL Eosinophils # (0-0.7) k/uL Basophils # (0-0.2) k/uL Sodium (137-145) mmol/L Potassium (3.5-5.1) mmol/L Chloride (98-107) mmol/L Carbon Dioxide (22-30) mmol/L Anion Gap mmol/L BUN (7-17) mg/dL Creatinine (0.52-1.04) mg/dL Est GFR (MDRD) Af Amer (>60 ml/min/1.73 sqM) Est GFR (MDRD) Non-Af (>60 ml/min/1.73 sqM) Glucose (74-99) mg/dL Calcium (8.4-10.2) mg/dL Total Bilirubin (0.2-1.3) mg/dL AST (14-36) U/L ALT (9-52) U/L Alkaline Phosphatase (38-126) U/L Total Protein (6.3-8.2) g/dL Albumin (3.5-5.0) g/dL Urine Color Yellow Urine Appearance Cloudy H (Clear) Urine pH 6.0 (5.0-8.0) Ur Specific [place] 1.028 (1.001-1.035) Urine Protein 2+ H (Negative) Urine Glucose (UA) 4+ H (Negative) Urine Ketones 2+ H (Negative) Urine Blood Trace H (Negative) Urine Nitrite Negative (Negative) Urine Bilirubin Negative (Negative) Urine Urobilinogen <2.0 (<2.0) mg/dL Ur Leukocyte Esterase Trace H (Negative) Urine RBC 58 H (0-5) /hpf Urine WBC 4 (0-5) /hpf Ur Squamous Epith Cells 15 H (0-4) /hpf Urine Bacteria Rare H (None) /hpf Urine Mucus Rare H (None) /hpf Urine Yeast (Budding) Few H (None) /hpf Urine HCG, Qual (Not Detectd) Disposition Clinical Impression: Seizure Disposition: HOME SELF-CARE Condition: Good Instructions: Recurrent Seizures in Adults (ED) Additional Instructions: Please follow-up the family doctor or neurologist over the next 1-[address] unless cleared by physician for at least 6 months due to seizure activity. Please return to emergency room if any symptoms increase or worsen or for any other concerns. Referrals: Marleny Farrell DO [Primary Care Provider] - 1-2 days Baudilio Edwards MD [STAFF PHYSICIAN] - 1-2 days Time of Disposition: 14:22
[2017-07-13 13:04] LABS: ALT 44 U/L (9-52); AST 32 U/L (14-36); Albumin 3.8 g/dL (3.5-5.0); Alkaline Phosphatase 79 U/L (38-126); Anion Gap 11 mmol/L; Blood Urea Nitrogen 12 mg/dL (7-17); Calcium 9.8 mg/dL (8.4-10.2); Carbon Dioxide 23 mmol/L (22-30); Chloride 103 mmol/L (98-107); Glucose 328 mg/dL (74-99); Potassium 4.3 mmol/L (3.5-5.1); Sodium 137 mmol/L (137-145); Total Bilirubin 0.7 mg/dL (0.2-1.3); Total Protein 7.1 g/dL (6.3-8.2)
[2017-07-13 13:05] LABS: Basophils % (A) 1 %; Eosinophils % (A) 0 %; HCT 44.2 % (34.0-46.0); HGB 14.9 gm/dL (11.4-16.0); Lymphocytes # (A) 1.3 k/uL (1.0-4.8); Lymphocytes % (A) 19 %; MCH 28.6 pg (25.0-35.0); MCHC 33.7 g/dL (31.0-37.0); MCV 84.9 fL (80.0-100.0); Mean Platelet Volume 8.8; Monocytes # (A) 0.3 k/uL (0-1.0); Monocytes % (A) 5 %; Neutrophils % (A) 74 %; Platelet Count 223 k/uL (150-450); RBC 5.21 m/uL (3.80-5.40); RDW 13.2 % (11.5-15.5); WBC 6.7 k/uL (3.8-10.6)
[2017-07-13 13:45] LABS: Appearance,Urine Cloudy (Clear); Bacteria,Urine Rare /hpf; Bilirubin,Urine Negative (Negative); Blood,Urine Trace (Negative); Budding Yeast,Urine Few /hpf; Color,Urine Yellow; Glucose,Urine (UA) 4+ (Negative); Leukocyte Esterase,Urine Trace (Negative); Mucus,Urine Rare /hpf; Protein,Urine 2+ (Negative); RBC,Urine 58 /hpf (0-5); Specific Gravity,Urine 1.028 (1.001-1.035); Squamous Epithelial Cell,Urine 15 /hpf (0-4); Urobilinogen,Urine <2.0 mg/dL (<2.0); WBC,Urine 4 /hpf (0-5)
[2017-07-13 13:58] LABS: Ketones,Urine 2+ (Negative)
--- NOTE | 2017-07-13 15:17 | CT ---
EXAMINATION TYPE: CT brain wo con DATE OF EXAM: 07/13/2017 COMPARISON: 07/14/2015 HISTORY: Seizure and left sided weakness CT DLP: 1129.[address] of the brain was performed. The ventricles, basal cisterns and sulci overlying the cerebral convexities demonstrate a normal appe arance. There is no evidence for intracranial hemorrhage or sulcal effacement. No mass effects are seen. Osseous calvarium is intact. If symptoms persist consider MRI as clinically warranted. IMPRESSION: 1. No acute intracranial process is seen at this time.
[2017-07-13 16:06] LABS: Glucose,Whole Blood 329 mg/dL (75-99)
--- NOTE | 2017-07-13 18:14 | ED ---
Medical Decision Making - Medical Decision Making Patient prior to being discharged was not feeling well and warmth have a CT of the head. CAT scan was performed and is unremarkable. Results were discussed with the patient. She states she was still feeling dizzy. Patient was given 2 L of fluids here in the emergency room and on reexamination is feeling much better. She is advised follow-up with neurologist tomorrow. Advised return here to the emergency room for any other concerns. Patient states understanding and is in agreement. - Lab Data Result diagrams: 07/13/17 12:42 07/13/17 12:42 Lab Results 07/13/17 07/13/17 07/13/17 Range/Units 12:42 12:42 13:27 WBC 6.7 (3.8-10.6) k/uL RBC 5.21 (3.80-5.40) m/uL Hgb 14.9 (11.4-16.0) gm/dL Hct 44.2 (34.0-46.0) % MCV 84.9 (80.0-100.0) fL MCH 28.6 (25.0-35.0) pg MCHC 33.7 (31.0-37.0) g/dL RDW 13.2 (11.5-15.5) % Plt Count 223 (150-450) k/uL Neutrophils % 74 % Lymphocytes % 19 % Monocytes % 5 % Eosinophils % 0 % Basophils % 1 % Neutrophils # 5.0 (1.3-7.7) k/uL Lymphocytes # 1.3 (1.0-4.8) k/uL Monocytes # 0.3 (0-1.0) k/uL Eosinophils # 0.0 (0-0.7) k/uL Basophils # 0.0 (0-0.2) k/uL Sodium 137 (137-145) mmol/L Potassium 4.3 (3.5-5.1) mmol/L Chloride 103 (98-107) mmol/L Carbon Dioxide 23 (22-30) mmol/L Anion Gap 11 mmol/L BUN 12 (7-17) mg/dL Creatinine 0.50 L (0.52-1.04) mg/dL Est GFR (MDRD) Af Amer >60 (>60 ml/min/1.73 sqM) Est GFR (MDRD) Non-Af >60 (>60 ml/min/1.73 sqM) Glucose 328 H (74-99) mg/dL POC Glucose (mg/dL) (75-99) mg/dL POC Glu Unit Support Representative ID Calcium 9.8 (8.4-10.2) mg/dL Total Bilirubin 0.7 (0.2-1.3) mg/dL AST 32 (14-36) U/L ALT 44 (9-52) U/L Alkaline Phosphatase 79 (38-126) U/L Total Protein 7.1 (6.3-8.2) g/dL Albumin 3.8 (3.5-5.0) g/dL Urine Color Urine Appearance (Clear) Urine pH (5.0-8.0) Ur Specific [place] (1.001-1.035) Urine Protein (Negative) Urine Glucose (UA) (Negative) Urine Ketones (Negative) Urine Blood (Negative) Urine Nitrite (Negative) Urine Bilirubin (Negative) Urine Urobilinogen (<2.0) mg/dL Ur Leukocyte Esterase (Negative) Urine RBC (0-5) /hpf Urine WBC (0-5) /hpf Ur Squamous Epith Cells (0-4) /hpf Urine Bacteria (None) /hpf Urine Mucus (None) /hpf Urine Yeast (Budding) (None) /hpf Urine HCG, Qual Not Detected (Not Detectd) 07/13/17 07/13/17 Range/Units 13:27 15:37 WBC (3.8-10.6) k/uL RBC (3.80-5.40) m/uL Hgb (11.4-16.0) gm/dL Hct (34.0-46.0) % MCV (80.0-100.0) fL MCH (25.0-35.0) pg MCHC (31.0-37.0) g/dL RDW (11.5-15.5) % Plt Count (150-450) k/uL Neutrophils % % Lymphocytes % % Monocytes % % Eosinophils % % Basophils % % Neutrophils # (1.3-7.7) k/uL Lymphocytes # (1.0-4.8) k/uL Monocytes # (0-1.0) k/uL Eosinophils # (0-0.7) k/uL Basophils # (0-0.2) k/uL Sodium (137-145) mmol/L Potassium (3.5-5.1) mmol/L Chloride (98-107) mmol/L Carbon Dioxide (22-30) mmol/L Anion Gap mmol/L BUN (7-17) mg/dL Creatinine (0.52-1.04) mg/dL Est GFR (MDRD) Af Amer (>60 ml/min/1.73 sqM) Est GFR (MDRD) Non-Af (>60 ml/min/1.73 sqM) Glucose (74-99) mg/dL POC Glucose (mg/dL) 329 H (75-99) mg/dL POC Glu Unit Support Representative ID Ashley Perkins Calcium (8.4-10.2) mg/dL Total Bilirubin (0.2-1.3) mg/dL AST (14-36) U/L ALT (9-52) U/L Alkaline Phosphatase (38-126) U/L Total Protein (6.3-8.2) g/dL Albumin (3.5-5.0) g/dL Urine Color Yellow Urine Appearance Cloudy H (Clear) Urine pH 6.0 (5.0-8.0) Ur Specific [place] 1.028 (1.001-1.035) Urine Protein 2+ H (Negative) Urine Glucose (UA) 4+ H (Negative) Urine Ketones 2+ H (Negative) Urine Blood Trace H (Negative) Urine Nitrite Negative (Negative) Urine Bilirubin Negative (Negative) Urine Urobilinogen <2.0 (<2.0) mg/dL Ur Leukocyte Esterase Trace H (Negative) Urine RBC 58 H (0-5) /hpf Urine WBC 4 (0-5) /hpf Ur Squamous Epith Cells 15 H (0-4) /hpf Urine Bacteria Rare H (None) /hpf Urine Mucus Rare H (None) /hpf Urine Yeast (Budding) Few H (None) /hpf Urine HCG, Qual (Not Detectd) Disposition Clinical Impression: Seizure Disposition: HOME SELF-CARE Condition: Good Instructions: Recurrent Seizures in Adults (ED) Additional Instructions: Please follow-up the family doctor or neurologist over the next 1-[address] unless cleared by physician for at least 6 months due to seizure activity. Please return to emergency room if any symptoms increase or worsen or for any other concerns. Referrals: Baudilio Edwards MD [STAFF PHYSICIAN] - 1-2 days Marleny Farrell DO [Primary Care Provider] - 1-2 days Time of Disposition: 18:14
[2017-07-13 18:21] VITALS: BP 119/73; PULSE 94; RESP 19; TEMP 97.9
[2017-07-14 01:42] LABS: Hemoglobin A1C 12.8 % (4.0-6.0)
== END 2017-07-13 18:24 | disposition home or self-care (01) ==
LOC: EC 11:54
DX: R56.9 Unspecified convulsions (principal); M79.7 Fibromyalgia; E66.9 Obesity, unspecified; Z68.41 Body mass index [BMI] 40.0-44.9, adult; Z86.14 Personal history of Methicillin resistant Staphylococcus aureus infection; Z79.891 Long term (current) use of opiate analgesic; Z79.899 Other long term (current) drug therapy; Z91.048 Other nonmedicinal substance allergy status; Z88.8 Allergy status to other drugs, medicaments and biological substances; Z88.1 Allergy status to other antibiotic agents; Z88.0 Allergy status to penicillin; Z88.2 Allergy status to sulfonamides
CPT/HCPCS: 36415; 80053; 85025; 81001; 81025; 83036; 70450; 99285; 96374; 96361 ×3; J2405

== ENCOUNTER 2017-08-02 11:13 | Day surgery (SDC) | payer OTHER ==
[2017-07-28 11:08] VITALS: BMI 45.1
--- NOTE | 2017-08-02 10:02 | P.GSHP ---
History of Present Illness H&P Date: 08/02/17 CHIEF COMPLAINT: Incisional hernia. HISTORY OF PRESENT ILLNESS: The patient is a 41-year-old female who presents with a history of swelling along the right upper abdomen. Findings were consistent with possible incisional hernia. Now she presents for further evaluation and management. PAST MEDICAL HISTORY: Please see list. PAST SURGICAL HISTORY: Please see list. MEDICATIONS: Please see list. ALLERGIES: Please see list. SOCIAL HISTORY: No illicit drug use FAMILY HISTORY: No reports of Crohn disease or ulcerative colitis. REVIEW OF ORGAN SYSTEMS: CONSTITUTIONAL: No reports of fevers or chills. GI: Denies any blood in stools or constipation. PHYSICAL EXAM: VITAL SIGNS: Stable GENERAL: Well-developed pleasant female in no acute distress. HEENT: No scleral icterus. Extraocular movements grossly intact. Moist buccal mucosa. NECK: Supple without lymphadenopathy. CHEST: Unlabored respirations. Equal bilateral excursions. CARDIOVASCULAR: Regular rate and rhythm. Distal 2+ pulses. ABDOMEN: Soft, nondistended. Tender along the right upper abdomen. Protuberant. MUSCULOSKELETAL: No clubbing, cyanosis, or edema. ASSESSMENT: 1. Incisional ventral hernia. 2. Morbid obesity, BMI 45.2 PLAN: 1. Recommend proceeding with robotic ventral hernia repair with mesh. 2. Benefits and risks of surgical intervention was discussed including possibility of open technique. 3. DVT prophylaxis. 4. Antibiotic prophylaxis. Past Medical History Past Medical History: Asthma, Diabetes Mellitus, Fibromyalgia, Hypertension, Musculoskeletal Disorder Additional Past Medical History / Comment(s): DEGENERATIVE DISC DISEASE, upper neck, lower back, hx kidney stones. Obesity, current umbilical hernia. States has high liver enzymes at times related to her Fibromyalgia. History of Any Multi-Drug Resistant Organisms: MRSA Date of last positivie culture/infection: 07/04/01 MDRO Source:: gallbladder Past Surgical History: Cholecystectomy, Hernia Repair Additional Past Surgical History / Comment(s): CATARACT SURGERY, kidney stents Past Anesthesia/Blood Transfusion Reactions: No Reported Reaction Past Psychological History: Anxiety Smoking Status: Never smoker Past Alcohol Use History: None Reported Past Drug Use History: None Reported - Past Family History Father Family Medical History: No Reported History Mother Family Medical History: Cancer Additional Family Medical History / Comment(s): Breast cancer Sister(s) Family Medical History: Cancer Additional Family Medical History / Comment(s): Leukemia Medications and Allergies Home Medications Medication Instructions Recorded Confirmed Type Morphine Sulfate Ir [MSIR] 15 mg PO BID 07/14/15 07/28/17 History Morphine Sulfate ER [Ms Contin] 60 mg PO HS 04/09/17 07/28/17 History valACYclovir HCL [Valtrex] 1,000 mg PO DAILY 04/09/17 07/28/17 History glipiZIDE [Glucotrol] 5 mg PO AC-BID #60 tab 04/14/17 07/28/17 Rx Albuterol Inhaler [Ventolin Hfa 1 - 2 puff INHALATION RT-Q6H PRN 06/05/17 History Inhaler] Morphine Sulfate ER [Ms Contin] 100 mg PO QAM 06/05/17 07/28/17 History Allergies Allergy/AdvReac Type Severity Reaction Status Date / Time adhesive tape Allergy Severe Rash/Hives Verified 07/28/17 10:49 Cephalosporins Allergy Rash/Hives Verified 07/28/17 10:49 cortisone [Cortisone] Allergy Anaphylaxis Verified 07/28/17 10:49 diphenhydramine HCl Allergy Anaphylaxis Verified 07/28/17 10:49 [From Benadryl] doxycycline Allergy Rash/Hives Verified 07/28/17 10:49 Penicillins Allergy Anaphylaxis Verified 07/28/17 10:49 Quinolones Allergy Rash/Hives Verified 07/28/17 10:49 Sulfa (Sulfonamide Allergy Rash/Hives Verified 07/28/17 10:49 Antibiotics)
[~2017-08-02 11:13] MED LIST: CLINDAMYCIN 900 MG in DEXTROSE 5% IN WATER 50 ML IVPB ONE; ENOXAPARIN 40 MG/0.4 ML SYRINGE SQ STA; HEPARIN SODIUM,PORCINE 5,000 UNIT/ML 1 ML VIAL SQ ONE; HYDROmorphone 0.5 MG/0.5 ML SYRINGE IVP PRN; LACTATED RINGERS 1,000 ML IV SCH; Pre Op ABX Message 1 EACH MISC MISCELLANE ONE
[2017-08-02] MEDS ORDERED: SCOPOLAMINE 1.5MG/72HR PATCH TRANSDERM ONE (12:00)
[2017-08-02] MEDS ORDERED: LIDOCAINE 1% 20 ML VIAL (10MG/ML) FOR IV START INTRADERMA ONE (12:14)
[2017-08-02] MEDS: ONDANSETRON 4 MG/2 ML VIAL IVP PRN ×2 (12:15→19:06)
[2017-08-02] MEDS ORDERED: INSULIN ASPART 100 UNIT/ML 1 ML 10 ML VIAL SQ ONE ×2 (12:15→16:38)
[2017-08-02 12:17] LABS: Glucose,Whole Blood 288 mg/dL (75-99)
[2017-08-02] MEDS ORDERED: NEOSTIGMINE 1 MG/ML 10 ML VIAL ONE (14:02)
[2017-08-02] MEDS ORDERED: GLYCOPYRROLATE 0.2 MG/ML 2 ML VIAL ONE (14:02)
[2017-08-02] MEDS ORDERED: LIDOCAINE 1% INJ 10MG/ML (20 ML MDV) ONE (14:02)
[2017-08-02] MEDS ORDERED: MIDAZOLAM 2 MG/2 ML VIAL ONE (14:02)
[2017-08-02] MEDS ORDERED: PROPOFOL 10 MG/ML 20 ML VIAL IV ONE (14:02)
[2017-08-02] MEDS ORDERED: ROCURONIUM BROMIDE 10 MG/ML 10 ML VIAL IV ONE (14:02)
[2017-08-02] MEDS ORDERED: fentaNYL (PF) 50 MCG/ML 2 ML AMP ONE (14:02)
[2017-08-02] MEDS ORDERED: SUCCINYLCHOLINE CHLORIDE 100 MG/5 ML SYR IV ONE (14:02)
[2017-08-02] MEDS ORDERED: KETOROLAC 30 MG/ML 1 ML VIAL ONE (14:02)
[2017-08-02] MEDS ORDERED: HYDROmorphone (PF) 1 MG/ML ONE (14:02)
[2017-08-02] MEDS ORDERED: BUPIVACAINE (PF) 0.25% 30 ML VIAL SQ ONE (14:42)
[2017-08-02 16:11] VITALS: TEMP 97.6
--- NOTE | 2017-08-02 16:13 | P.OP ---
Date of Procedure: 08/02/17 Description of Procedure: SURGEON: MARGOT MATAMOROS MD EDITOR MANAGING NEWSPAPER: 1. CHANA BARTLETT 2. DILEEP STONE PREOPERATIVE DIAGNOSES: 1. Initial incisional ventral hernia 2. Right upper quadrant abdominal pain 3. Right upper quadrant swelling 4. Morbid obesity due to excess calories 5. Body mass index 45.1 6. History of abdominal surgeries 7. Diabetes type 2, [id number] 8. Chronic pain syndrome 9. Diffuse osteoarthritis 10. Chronic obstructive pulmonary disease 11. History of methicillin-resistant staph aureus 12. Fibromyalgia POSTOPERATIVE DIAGNOSES: 1. Initial incisional ventral hernia 2. Right upper quadrant abdominal pain 3. Right upper quadrant swelling 4. Morbid obesity due to excess calories 5. Body mass index 45.1 6. History of abdominal surgeries 7. Diabetes type 2, [id number] 8. Chronic pain syndrome 9. Diffuse osteoarthritis 10. Chronic obstructive pulmonary disease 11. History of methicillin-resistant staph aureus 12. Fibromyalgia 13. Moderate peritoneal adhesions right upper quadrant, greater omentum to abdominal wall 14. Incarcerated incisional ventral hernia 2 cm, periumbilical. OPERATION: 1. Robotic-assisted da Francis Xi laparoscopic lysis of adhesions over 30 minutes , right upper quadrant 2. Robotic-assisted da Francis Xi laparoscopic repair of initial incarcerated incisional hernia 2 cm without mesh ANESTHESIA: General with local ESTIMATED BLOOD LOSS: 5 mL. SPECIMENS: Incarcerated incisional hernia sac COMPLICATIONS: None. INDICATIONS: The patient is a 41-year-old female who presents with pain along the right upper quadrant from previous open cholecystectomy including periumbilical pain. Surgical intervention with laparoscopic versus robotic and open techniques were reviewed. Placement of mesh was also reviewed. Benefits and risks were thoroughly described. Informed consent was obtained. DESCRIPTION OF PROCEDURE: The patient was brought into the operating room and laid in supine position. After general induction, the abdomen had been prepped and draped in standard sterile fashion. Ioban draping was also placed. Prior to incision, a timeout protocol was confirmed with surgical team regarding the patient's name including procedures to be performed. The robot was primed prior to the procedure. A field block using local anesthetis was placed along hernia site including the proposed port sites. Initial incision was made with an #11 blade along the left upper quadrant. A 0 degree 5 mm laparoscopic trocar entry was performed. Diagnostic laparoscopy demonstrated moderate peritoneal adhesions involving the right upper quadrant consistent with her area of pain. Separately an incarcerated incisional hernia of the umbilicus was identified. A 12 mm trocar was placed along the left lateral abdominal wall approximately 12 cm lateral to the lower midline. An 8 mm port was placed along the left lower quadrant under direct localization. The 5-mm port was exchanged for an 8 mm robotic port. Placements of the ports were 15 cm from the target anatomy and approximately 10 cm apart. The da Francis Xi robot was previously primed, prepped and draped then docked along the left side of the patient. I then sat at the robot Da Francis Xi console where working arms of the robot including Bovie cautery connected to robotic scissors, vessel sealer, needle bellman driver, and graspers placed by the digital sales assistant. Adhesions along the right upper quadrant were initially addressed with vessel sealer including blunt dissection for the greater omentum to the abdominal wall. Less than 8 mm small fascial defect was identified including laxity of the abdominal wall from her previous open cholecystectomy. Lysis of adhesions occurred for over 30 minutes. Attention was brought to the umbilicus where an incarcerated incisional hernia was identified also containing omentum. The incarcerated contents was reduced as the peritoneal fat was cleaned from the abdominal wall. Next, hemostasis was checked with cautery. The hernia defect of 2-cm was oversewn using #1 Stratafix with imbrication 3. A final endoscopic imaging was obtained. All instruments and pneumoperitoneum were evacuated from the abdominal cavity. The da Francis Xi robot was undocked from the patient. I re-scrubbed into the case for closure of incisions. The fascia of the 12-mm port was probed and less than 8-mm in size. The incisions were reapproximated using 4-0 Monocryl in an interrupted subcuticular fashion. Exofin liquid glue was applied to the skin after cleansing the skin with normal saline and dilute hydrogen peroxide. A dressing was placed at the umbilicus with three(3) 4 x 4 gauze followed by Tegaderm. An abdominal binder was placed. At the end of the procedure, needle, sponge, and instrument count had been verified correct by rn surgical pcu. The patient was taken to the postanesthesia care unit in stable condition. FINDINGS: 1. Initial incisional incarcerated hernia of the umbilicus from previous surgery, 2 cm 2. Peritoneal adhesions of the right upper quadrant consistent with patient's area of pain lysed over 30 minutes without enterotomies Plan - Discharge Summary New Discharge Prescriptions: No Action Morphine Sulfate Ir [MSIR] 15 mg PO BID valACYclovir HCL [Valtrex] 1,000 mg PO DAILY Morphine Sulfate ER [Ms Contin] 60 mg PO HS glipiZIDE [Glucotrol] 5 mg PO AC-BID #60 tab Morphine Sulfate ER [Ms Contin] 100 mg PO QAM Albuterol Inhaler [Ventolin Hfa Inhaler] 1 - 2 puff INHALATION RT-Q6H PRN PRN Reason: Shortness Of Breath Discharge Medication List Morphine Sulfate Ir [MSIR] 15 mg PO BID 07/14/15 [History] Morphine Sulfate ER [Ms Contin] 60 mg PO HS 04/09/17 [History] valACYclovir HCL [Valtrex] 1,000 mg PO DAILY 04/09/17 [History] glipiZIDE [Glucotrol] 5 mg PO AC-BID #60 tab 04/14/17 [Rx] Albuterol Inhaler [Ventolin Hfa Inhaler] 1 - 2 puff INHALATION RT-Q6H PRN [History] Morphine Sulfate ER [Ms Contin] 100 mg PO QAM 06/05/17 [History]
[2017-08-02 16:31] VITALS: RESP 16
[2017-08-02 16:36] LABS: Glucose,Whole Blood 256 mg/dL (75-99)
[2017-08-02 19:08] VITALS: PULSE 90
[2017-08-02 19:16] VITALS: BP 126/78
== END 2017-08-02 19:46 | disposition home or self-care (01) ==
LOC: OR 11:13 → 3SUR 15:41 → 2ORMAIN 18:17 → OR 19:46
PROVIDERS: ATTEND Surgery Plastic and Reconstructive Surgery
DX: K43.0 Incisional hernia with obstruction, without gangrene (principal); K66.0 Peritoneal adhesions (postprocedural) (postinfection); E11.9 Type 2 diabetes mellitus without complications; Z79.84 Long term (current) use of oral hypoglycemic drugs; E66.01 Morbid (severe) obesity due to excess calories; Z68.42 Body mass index [BMI] 45.0-49.9, adult; G89.4 Chronic pain syndrome; M19.90 Unspecified osteoarthritis, unspecified site; J44.9 Chronic obstructive pulmonary disease, unspecified; Z86.14 Personal history of Methicillin resistant Staphylococcus aureus infection; M79.7 Fibromyalgia; Z79.891 Long term (current) use of opiate analgesic; Z79.899 Other long term (current) drug therapy; Z88.1 Allergy status to other antibiotic agents; Z88.0 Allergy status to penicillin; Z88.2 Allergy status to sulfonamides; Z88.8 Allergy status to other drugs, medicaments and biological substances; Z91.09 Other allergy status, other than to drugs and biological substances
CPT/HCPCS: 49655; S2900; 81025; 88302

== ENCOUNTER → 2017-09-21 | Outpatient (CLI) | payer OTHER ==
[2017-09-21 11:22] VITALS: BP 111/80; PULSE 103; RESP 20; TEMP 98.2; BMI 49.2
--- NOTE | 2017-09-21 12:08 | P.HPBAR ---
Bariatric H&P - History & Physicial H&P Date: 09/21/17 History & Physicial: Visit/CC: pursuing pannic Patient initial contact: Initial weight: 152.407 kg Initial weight in pounds: 336.00 Height: 5 ft 9.25 in Initial BMI: 49.2 Last weight: Current weight: 152.407 kg Current weight in pounds: 336.00 Current BMI: 49.2 Warren body weight (based on NIH guidelines): 66.338 kg Excess body weight loss: 0.0% The patient is a 42 year-old F who presents for Bariatric Assessment. HPI: She comes in with history of insulin dependent diabetes type II. Today, she reports having a boil along her pannus and severe panniculitis. She has on her own lost over 100+ pounds and maintained. She still at present comes in with BMI of 49.3. Her highest weight was 568 pounds. She reports constipation from her medication in many days. She has not had a recent colonoscopy. She reports change in bowel habits. She reports chronic constipation from her opiates from her fibromyalgia. No inflammatory bowel disease. She has taken Nystatin powder without improvement of her symptoms. PLAN: 1. MBSC reviewed. 2. EGD pending. 3. She comes in with furuncle of the right labia. Recommend Bactrim for history of MRSA and blood sugar glucose control which is at present 130s. Past Medical History Past Medical History: Diabetes Mellitus, Fibromyalgia, Hypertension Additional Past Medical History / Comment(s): DEGENERATIVE DISC DISEASE, kidney stones obesity History of Any Multi-Drug Resistant Organisms: MRSA Year Discovered:: 07/04/01 MDRO Source:: gallbladder Past Surgical History: Cholecystectomy, Hernia Repair Additional Past Surgical History / Comment(s): CATARACT SURGERY, kidney stents Past Anesthesia/Blood Transfusion Reactions: No Reported Reaction Past Psychological History: Anxiety Smoking Status: Never smoker Past Alcohol Use History: None Reported Past Drug Use History: None Reported - Past Family History Father Family Medical History: No Reported History Mother Family Medical History: Cancer Sister(s) Family Medical History: Cancer Surgical - Exam Vital Signs Temp Pulse Resp BP 98.2 F 103 H 20 111/80 09/21/17 11:15 09/21/17 11:15 09/21/17 11:15 09/21/17 11:15 Bariatric Checklist Checklist: Plan: Checklist: EGD: 1. Hiatal hernia: 2. H. Pylori: HgbA1c: Vitamin D: Smoking: Never smoker Primary care physician referral: Dr Lara/Ericka Castorena Psychiatry clearance: Cardiology clearance: Sleep study: Diet journal: VTE risk score: VTE risk level: Rehab needs at discharge:
[2017-09-21 13:15] LABS: HCT 44.7 % (34.0-46.0); HGB 15.1 gm/dL (11.4-16.0); MCH 28.4 pg (25.0-35.0); MCHC 33.7 g/dL (31.0-37.0); MCV 84.5 fL (80.0-100.0); Platelet Count 203 k/uL (150-450); RBC 5.29 m/uL (3.80-5.40); RDW 13.2 % (11.5-15.5); WBC 6.7 k/uL (3.8-10.6)
[2017-09-21 13:32] LABS: ALT 26 U/L (9-52); AST 22 U/L (14-36); Alkaline Phosphatase 76 U/L (38-126); Anion Gap 13 mmol/L; Blood Urea Nitrogen 15 mg/dL (7-17); Calcium 9.8 mg/dL (8.4-10.2); Carbon Dioxide 27 mmol/L (22-30); Chloride 100 mmol/L (98-107); Cholesterol 199 mg/dL (<200); Glucose 208 mg/dL (74-99); HDL Cholesterol 50 mg/dL (40-60); LDL Cholesterol,Calculated 121 mg/dL (0-99); Potassium 4.4 mmol/L (3.5-5.1); Sodium 140 mmol/L (137-145); Total Bilirubin 0.6 mg/dL (0.2-1.3); Total Protein 7.1 g/dL (6.3-8.2); Triglycerides 138 mg/dL (<150)
[2017-09-21 19:59] LABS: Iron Saturation 10.9 (12.00-45.00)
[2017-09-21 20:14] LABS: Hemoglobin A1C 11.5 % (4.0-6.0)
[2017-09-21 20:15] LABS: Folate, Serum 18.2 ng/mL; Vitamin D 25 Hydroxy 14.4 ng/mL (30.0-100.0)
== END | disposition home or self-care (01) ==
LOC: BARWHC3 10:52
PROVIDERS: ATTEND Surgery Plastic and Reconstructive Surgery
DX: F41.0 Panic disorder [episodic paroxysmal anxiety] (principal); E66.9 Obesity, unspecified; M79.3 Panniculitis, unspecified; M79.7 Fibromyalgia; L02.221 Furuncle of abdominal wall; E11.9 Type 2 diabetes mellitus without complications; Z79.4 Long term (current) use of insulin; K59.03 Drug induced constipation; F41.9 Anxiety disorder, unspecified; E89.1 Postprocedural hypoinsulinemia; E88.81 Metabolic syndrome and other insulin resistance; D50.8 Other iron deficiency anemias; E44.0 Moderate protein-calorie malnutrition; E55.9 Vitamin D deficiency, unspecified; I11.9 Hypertensive heart disease without heart failure; Z98.890 Other specified postprocedural states; Z68.42 Body mass index [BMI] 45.0-49.9, adult; Z90.49 Acquired absence of other specified parts of digestive tract
CPT/HCPCS: 84425; 80061; 80053; 82607; 82728; 82746; 83540; 83550; 84443; 85027; 82306; 83036; 93005; 36415; G0463; 99211

== ENCOUNTER 2017-10-23 06:47 | Day surgery (SDC) | payer OTHER ==
[2017-10-18 14:39] VITALS: BMI 45.1
--- NOTE | 2017-10-22 18:56 | P.GSHP ---
History of Present Illness H&P Date: 10/23/17 CHIEF COMPLAINT: GERD and change in bowel habits HISTORY OF PRESENT ILLNESS: The patient is a 42-year-old female who presents with gastroesophageal reflux disease and change in bowel habits. Upper and lower endoscopy were offered for further evaluation and management. PAST MEDICAL HISTORY: Please see list. PAST SURGICAL HISTORY: Please see list. MEDICATIONS: Please see list. ALLERGIES: Please see list. SOCIAL HISTORY: See list FAMILY HISTORY: No reports of Crohn disease or ulcerative colitis. REVIEW OF ORGAN SYSTEMS: CONSTITUTIONAL: No reports of fevers or chills. PHYSICAL EXAM: VITAL SIGNS: Stable GENERAL: Well-developed pleasant in no acute distress. HEENT: No scleral icterus. Extraocular movements grossly intact. Moist buccal mucosa. NECK: Supple without lymphadenopathy. CHEST: Unlabored respirations. Equal bilateral excursions. CARDIOVASCULAR: Regular rate and rhythm. Distal 2+ pulses. ABDOMEN: Soft, nondistended. MUSCULOSKELETAL: No clubbing, cyanosis, or edema. ASSESSMENT: 1. Gastroesophageal reflux disease 2. Change in bowel habits PLAN: 1. Recommend proceeding with an upper and lower endoscopy Past Medical History Past Medical History: Diabetes Mellitus, Fibromyalgia, Hypertension, Musculoskeletal Disorder Additional Past Medical History / Comment(s): DEGENERATIVE DISC DISEASE, hx of kidney stones History of Any Multi-Drug Resistant Organisms: MRSA Date of last positivie culture/infection: 07/04/01 MDRO Source:: gallbladder Past Surgical History: Cholecystectomy, Hernia Repair Additional Past Surgical History / Comment(s): CATARACT SURGERY, kidney stents ; Colonoscopies Past Anesthesia/Blood Transfusion Reactions: No Reported Reaction Smoking Status: Never smoker - Past Family History Father Family Medical History: No Reported History Mother Family Medical History: Cancer Sister(s) Family Medical History: Cancer Medications and Allergies Home Medications Medication Instructions Recorded Confirmed Type Morphine Sulfate Ir [MSIR] 15 mg PO BID 07/14/15 10/18/17 History Morphine Sulfate ER [Ms Contin] 60 mg PO HS 04/09/17 10/18/17 History valACYclovir HCL [Valtrex] 1,000 mg PO DAILY 04/09/17 10/18/17 History glipiZIDE [Glucotrol] 5 mg PO AC-BID #60 tab 04/14/17 10/18/17 Rx Albuterol Inhaler [Ventolin Hfa 1 - 2 puff INHALATION RT-Q6H PRN 06/05/17 History Inhaler] Morphine Sulfate ER [Ms Contin] 100 mg PO QAM 06/05/17 10/18/17 History Docusate [Colace] 100 mg PO BID 09/21/17 10/18/17 History Nystatin 100,000 Unit/gm Powd 100,000 units TOPICAL BID 09/21/17 10/18/17 History [Mycostatin Powder] Allergies Allergy/AdvReac Type Severity Reaction Status Date / Time adhesive tape Allergy Severe Rash/Hives Verified 10/18/17 14:33 Cephalosporins Allergy Rash/Hives Verified 10/18/17 14:33 cortisone [Cortisone] Allergy Anaphylaxis Verified 10/18/17 14:33 diphenhydramine HCl Allergy Anaphylaxis Verified 10/18/17 14:33 [From Benadryl] doxycycline Allergy Rash/Hives Verified 10/18/17 14:33 Penicillins Allergy Anaphylaxis Verified 10/18/17 14:33 Quinolones Allergy Rash/Hives Verified 10/18/17 14:33 Sulfa (Sulfonamide Allergy Rash/Hives Verified 10/18/17 14:33 Antibiotics)
[~2017-10-23 06:47] MED LIST changes: -CLINDAMYCIN 900 MG in DEXTROSE 5% IN WATER 50 ML IVPB ONE; -ENOXAPARIN 40 MG/0.4 ML SYRINGE SQ STA; -HEPARIN SODIUM,PORCINE 5,000 UNIT/ML 1 ML VIAL SQ ONE; -HYDROmorphone 0.5 MG/0.5 ML SYRINGE IVP PRN; -Pre Op ABX Message 1 EACH MISC MISCELLANE ONE
[2017-10-23 06:59] VITALS: RESP 18; TEMP 98.4
[2017-10-23] MEDS ORDERED: LACTATED RINGERS 1,000 ML IV ONE ×2 (07:05)
[2017-10-23 07:09] LABS: Glucose,Whole Blood 230 mg/dL (75-99)
[2017-10-23] MEDS ORDERED: PROPOFOL 10 MG/ML 20 ML VIAL IV ONE (07:20)
[2017-10-23] MEDS ORDERED: fentaNYL (PF) 50 MCG/ML 2 ML AMP ONE (07:20)
[2017-10-23] MEDS ORDERED: LIDOCAINE 1% INJ 10MG/ML (20 ML MDV) ONE (07:20)
--- NOTE | 2017-10-23 07:33 | P.PCN ---
Date of Procedure: 10/23/17 Description of Procedure: PREOPERATIVE DIAGNOSIS: Gastroesophageal reflux disease. Morbid obesity. POSTOPERATIVE DIAGNOSIS: Morbid obesity. Gastritis. Gastroesophageal reflux disease. Diaphragmatic hiatal hernia without obstruction. OPERATION: Esophagogastroduodenoscopy with biopsies along antrum. SURGEON: Laura Alejo MD ANESTHESIA: MAC. INDICATIONS: The patient is a 42-year-old female who presents with a history of reflux disease. Benefits and risks of the procedure were described. Informed consent was obtained. DESCRIPTION: The patient was brought into the endoscopy suite and laid in the left lateral decubitus position. An Olympus gastroscope was passed along the posterior oropharynx down to the distal esophagus where the squamocolumnar junction was encountered at 40 cm from the incisors. The stomach was entered and moderate fluid was found and suctioned. Additional findings are listed below. Biopsies with cold forceps were obtained of the antrum. The first through third portion of the duodenum was examined and unremarkable. Retroflexion of the scope confirmed Hill grade 4 lower esophageal valve. The squamocolumnar junction demostrated LA grade A erosive esophagitis. The stomach was desufflated. The patient tolerated the procedure well. FINDINGS: Squamocolumnar junction 40 cm from the incisors. Diaphragmatic hiatus at 41 cm. Hiatal hernia 1 cm. Hill grade 4 lower esophageal valve. LA grade A erosive esophagitis. No active duodenitis. Superficial gastritis with recent bleeding. RECOMMENDATIONS: Upper endoscopy as needed. Will benefit from antireflux surgical procedure
--- NOTE | 2017-10-23 07:52 | P.PCN ---
Date of Procedure: 10/23/17 Description of Procedure: PREOPERATIVE DIAGNOSIS: Change in bowel habits. Personal history of colon polyps. Family history of colon cancer. POSTOPERATIVE DIAGNOSIS: Change in bowel habits. Personal history of colon polyps. Family history of colon cancer. Diverticulosis, scattered. Polyp at descending colon OPERATION: Colonoscopy to the ileocecal valve and appendiceal orifice. Colonoscopy with cold forceps biopsies at descending colon Colonoscopy with random cold biopsy forceps SURGEON: Laura Alejo MD. ANESTHESIA: MAC. INDICATIONS: The patient is a 42-year-old female who presents with change in bowel habits. Additional she has personal history of colon polyps and family history of colon cancer. Benefits and risks were described and informed consent was obtained. DESCRIPTION OF PROCEDURE: The patient had undergone Gatorade, MiraLAX and Dulcolax prep. Shhe had been brought into the operating room and laid in the left lateral decubitus position. After adequate intravenous sedation, the rectum was examined with 2% lidocaine jelly. No external hemorrhoids were encountered. The rectal tone was within normal limits. No lesions were palpated in the rectal vault. An Olympus colonoscope was advanced until the ileocecal valve and appendiceal orifice were clearly viewed. The prep was excellent with clear visualization of the mucosal folds. The scope was removed with visualization of each mucosal fold. Scattered diverticulosis was encountered. Random biopsies obtained throughout the colon for history of change in bowel habits with diarrhea. Descending colon polyp at 40 cm was cold forceps biopsy. Retroflexion of the scope demonstrated grade 1 internal hemorrhoids without active bleeding or inflammation. The colon was desufflated. The patient had tolerated the procedure well. Withdrawal time was over 6 minutes. FINDINGS: Internal hemorrhoids, grade 1 No external prolapsed hemorrhoids. No arteriovenous malformations. Scattered diverticulosis throughout the colon. Descending colon polyp, 3 mm tubulovillous, at 40 cm was cold forceps biopsy. No focal colitis. RECOMMENDATIONS: Lower endoscopy in 5 years, 2022 Plan - Discharge Summary New Discharge Prescriptions: No Action Morphine Sulfate Ir [MSIR] 15 mg PO BID valACYclovir HCL [Valtrex] 1,000 mg PO DAILY Morphine Sulfate ER [Ms Contin] 60 mg PO HS glipiZIDE [Glucotrol] 5 mg PO AC-BID #60 tab Morphine Sulfate ER [Ms Contin] 100 mg PO QAM Albuterol Inhaler [Ventolin Hfa Inhaler] 1 - 2 puff INHALATION RT-Q6H PRN PRN Reason: Shortness Of Breath Docusate [Colace] 100 mg PO BID Nystatin 100,000 Unit/gm Powd [Mycostatin Powder] 100,000 units TOPICAL BID Discharge Medication List Morphine Sulfate Ir [MSIR] 15 mg PO BID 07/14/15 [History] Morphine Sulfate ER [Ms Contin] 60 mg PO HS 04/09/17 [History] valACYclovir HCL [Valtrex] 1,000 mg PO DAILY 04/09/17 [History] glipiZIDE [Glucotrol] 5 mg PO AC-BID #60 tab 04/14/17 [Rx] Albuterol Inhaler [Ventolin Hfa Inhaler] 1 - 2 puff INHALATION RT-Q6H PRN [History] Morphine Sulfate ER [Ms Contin] 100 mg PO QAM 06/05/17 [History] Docusate [Colace] 100 mg PO BID 09/21/17 [History] Nystatin 100,000 Unit/gm Powd [Mycostatin Powder] 100,000 units TOPICAL BID 03/01 [History]
[2017-10-23 08:12] LABS: Glucose,Whole Blood 248 mg/dL (75-99)
[2017-10-23 08:14] VITALS: BP 117/84; PULSE 78
== END 2017-10-23 08:33 | disposition home or self-care (01) ==
LOC: ORWHC2ENDO 06:47
PROVIDERS: ATTEND Surgery Plastic and Reconstructive Surgery
DX: K29.50 Unspecified chronic gastritis without bleeding (principal); K22.10 Ulcer of esophagus without bleeding; K44.9 Diaphragmatic hernia without obstruction or gangrene; K57.30 Diverticulosis of large intestine without perforation or abscess without bleeding; K64.0 First degree hemorrhoids; Z86.010 Personal history of colon polyps; Z80.0 Family history of malignant neoplasm of digestive organs; D12.4 Benign neoplasm of descending colon; E66.01 Morbid (severe) obesity due to excess calories; Z68.42 Body mass index [BMI] 45.0-49.9, adult; J44.9 Chronic obstructive pulmonary disease, unspecified; Z87.442 Personal history of urinary calculi; E11.9 Type 2 diabetes mellitus without complications; Z79.84 Long term (current) use of oral hypoglycemic drugs; M79.7 Fibromyalgia; I10 Essential (primary) hypertension; Z86.14 Personal history of Methicillin resistant Staphylococcus aureus infection; Z79.891 Long term (current) use of opiate analgesic; Z79.899 Other long term (current) drug therapy; Z88.1 Allergy status to other antibiotic agents; Z88.0 Allergy status to penicillin; Z88.2 Allergy status to sulfonamides; Z88.8 Allergy status to other drugs, medicaments and biological substances; Z91.09 Other allergy status, other than to drugs and biological substances
CPT/HCPCS: 81025; 88305; 45380; 43239; J2001; J3010; J2704

== ENCOUNTER 2017-11-01 19:47 | Inpatient (IN) | payer OTHER ==
[2017-11-01] MEDS ORDERED: SODIUM CHLORIDE 0.9% 1,000 ML IV STA ×2 (21:25)
[2017-11-01] MEDS ORDERED: IOPAMIDOL-300 CONTRAST 30 ML VIAL (ORAL USE) PO PRN (21:25)
[2017-11-01 21:46] LABS: Basophils % (A) 0 %; Eosinophils # (A) 0.1 k/uL (0-0.7); Eosinophils % (A) 1 %; HCT 44.9 % (34.0-46.0); Lymphocytes # (A) 1.8 k/uL (1.0-4.8); Lymphocytes % (A) 25 %; MCH 28.3 pg (25.0-35.0); MCHC 33.3 g/dL (31.0-37.0); Mean Platelet Volume 8.3; Monocytes # (A) 0.4 k/uL (0-1.0); Monocytes % (A) 6 %; Neutrophils # (A) 4.9 k/uL (1.3-7.7); Neutrophils % (A) 67 %; Platelet Count 225 k/uL (150-450); RBC 5.28 m/uL (3.80-5.40); RDW 13.4 % (11.5-15.5); WBC 7.4 k/uL (3.8-10.6)
[2017-11-01] MEDS: MORPHINE SULFATE 2 MG/ML SYRINGE IVP STA (21:53)
[2017-11-01 21:55] LABS: ALT 40 U/L (9-52); AST 22 U/L (14-36); Albumin 3.7 g/dL (3.5-5.0); Alkaline Phosphatase 60 U/L (38-126); Amylase 44 U/L (30-110); Anion Gap 9 mmol/L; Blood Urea Nitrogen 15 mg/dL (7-17); Calcium 9.6 mg/dL (8.4-10.2); Carbon Dioxide 27 mmol/L (22-30); Chloride 100 mmol/L (98-107); Glucose 349 mg/dL (74-99); Lipase 150 U/L (23-300); Potassium 4.6 mmol/L (3.5-5.1); Sodium 136 mmol/L (137-145); Total Bilirubin 0.3 mg/dL (0.2-1.3); Total Protein 6.4 g/dL (6.3-8.2)
[2017-11-01 21:57] LABS: Appearance,Urine Cloudy (Clear); Bacteria,Urine Occasional /hpf; Bilirubin,Urine Negative (Negative); Blood,Urine Small (Negative); Budding Yeast,Urine Occasional /hpf; Color,Urine Light Yellow; Glucose,Urine (UA) 4+ (Negative); Ketones,Urine Negative (Negative); Leukocyte Esterase,Urine Large (Negative); Nitrite,Urine Positive (Negative); PH, Urine 5.5 (5.0-8.0); Protein,Urine 1+ (Negative); RBC,Urine 29 /hpf (0-5); Squamous Epithelial Cell,Urine 4 /hpf (0-4); Urobilinogen,Urine <2.0 mg/dL (<2.0); WBC,Urine 110 /hpf (0-5)
[2017-11-01] MEDS ORDERED: FAMOTIDINE 20 MG/2 ML VIAL IV STA (21:59)
[2017-11-01] MEDS ORDERED: methylPREDNISolone SOD SUCCI 125 MG/2 ML VIAL IV STA (21:59)
--- NOTE | 2017-11-01 22:03 | ED ---
General Adult HPI - General Chief complaint: Abdominal Pain Stated complaint: Abd Pain Time Seen by Provider: 11/01/17 21:21 Source: patient, RN notes reviewed, old records reviewed Mode of arrival: ambulatory Limitations: no limitations - History of Present Illness Initial comments: This is a 42-year-old female the ER today. Patient presents today for evaluation regarding abdominal pain severe left lower quadrant periumbilical abdominal pain. Patient has positive history of cholecystectomy. Hernia repair. Patient has had multiple colonoscopies at this time in her life showing positive hiatal hernia, polyps. Patient does have strong history of colon CA. About a week ago patient had a colonoscopy, started with abdominal pain progressively Atrovent that was severely worse today. No fevers. No other complaints - Related Data Home Medications Medication Instructions Recorded Confirmed Morphine Sulfate Ir [MSIR] 15 mg PO BID 07/14/15 10/18/17 Morphine Sulfate ER [Ms Contin] 60 mg PO HS 04/09/17 10/18/17 valACYclovir HCL [Valtrex] 1,000 mg PO DAILY 04/09/17 10/18/17 Albuterol Inhaler [Ventolin Hfa 1 - 2 puff INHALATION RT-Q6H PRN 06/05/17 Inhaler] Morphine Sulfate ER [Ms Contin] 100 mg PO QAM 06/05/17 10/18/17 Docusate [Colace] 100 mg PO BID 09/21/17 10/18/17 Nystatin 100,000 Unit/gm Powd 100,000 units TOPICAL BID 09/21/17 10/18/17 [Mycostatin Powder] Previous Rx's Medication Instructions Recorded glipiZIDE [Glucotrol] 5 mg PO AC-BID #60 tab 04/14/17 Allergies Allergy/AdvReac Type Severity Reaction Status Date / Time adhesive tape Allergy Severe Rash/Hives Verified 11/01/17 19:53 Cephalosporins Allergy Rash/Hives Verified 11/01/17 19:53 cortisone [Cortisone] Allergy Anaphylaxis Verified 11/01/17 19:53 diphenhydramine HCl Allergy Anaphylaxis Verified 11/01/17 19:53 [From Benadryl] doxycycline Allergy Rash/Hives Verified 11/01/17 19:53 Penicillins Allergy Anaphylaxis Verified 11/01/17 19:53 Quinolones Allergy Rash/Hives Verified 11/01/17 19:53 Sulfa (Sulfonamide Allergy Rash/Hives Verified 11/01/17 19:53 Antibiotics) Review of Systems ROS Statement: Those systems with pertinent positive or pertinent negative responses have been documented in the HPI. ROS Other: All systems not noted in ROS Statement are negative. Past Medical History Past Medical History: Diabetes Mellitus, Fibromyalgia, Hypertension, Musculoskeletal Disorder Additional Past Medical History / Comment(s): DEGENERATIVE DISC DISEASE, hx of kidney stones, History of Any Multi-Drug Resistant Organisms: MRSA Date of last positivie culture/infection: 07/04/01 MDRO Source:: gallbladder Past Surgical History: Cholecystectomy, Hernia Repair Additional Past Surgical History / Comment(s): CATARACT SURGERY, kidney stents ; Colonoscopies, Past Anesthesia/Blood Transfusion Reactions: No Reported Reaction Past Psychological History: Anxiety Smoking Status: Never smoker Past Alcohol Use History: None Reported Past Drug Use History: None Reported - Past Family History Father Family Medical History: No Reported History Mother Family Medical History: Cancer Sister(s) Family Medical History: Cancer General Exam Limitations: no limitations General appearance: alert, in no apparent distress, obese Head exam: Present: atraumatic, normocephalic, normal inspection Eye exam: Present: normal appearance, PERRL, EOMI. Absent: scleral icterus, conjunctival injection, periorbital swelling ENT exam: Present: normal exam, mucous membranes moist Neck exam: Present: normal inspection. Absent: tenderness, meningismus, lymphadenopathy Respiratory exam: Present: normal lung sounds bilaterally. Absent: respiratory distress, wheezes, rales, rhonchi, stridor Cardiovascular Exam: Present: regular rate, normal rhythm, normal heart sounds. Absent: systolic murmur, diastolic murmur, rubs, gallop, clicks GI/Abdominal exam: Present: soft, normal bowel sounds. Absent: distended, tenderness, guarding, rebound, rigid Extremities exam: Present: normal inspection, full ROM, normal capillary refill. Absent: tenderness, pedal edema, joint swelling, calf tenderness Back exam: Present: normal inspection Neurological exam: Present: alert, oriented X3, CN II-XII intact Psychiatric exam: Present: normal affect, normal mood Skin exam: Present: warm, dry, intact, normal color. Absent: rash Course Vital Signs 11/01/17 11/01/17 11/02/17 19:49 22:25 00:55 Temperature 98.7 F 98.2 F Pulse Rate 92 81 76 Respiratory 18 18 16 Rate Blood Pressure 117/83 110/66 122/75 O2 Sat by Pulse 99 94 L 97 Oximetry - Reevaluation(s) Reevaluation #1: 11/02/17 01:41 Patient has pain control Medical Decision Making - Medical Decision Making 42 female the ER for evaluation nausea vomiting abdominal pain severe. Patient be admitted for pain control and treatment of urinary tract infection - Lab Data Result diagrams: 11/01/17 21:34 11/01/17 21:34 Lab Results 11/01/17 11/01/17 11/01/17 Range/Units 21:34 21:34 21:34 WBC 7.4 (3.8-10.6) k/uL RBC 5.28 (3.80-5.40) m/uL Hgb 15.0 (11.4-16.0) gm/dL Hct 44.9 (34.0-46.0) % MCV 85.0 (80.0-100.0) fL MCH 28.3 (25.0-35.0) pg MCHC 33.3 (31.0-37.0) g/dL RDW 13.4 (11.5-15.5) % Plt Count 225 (150-450) k/uL Neutrophils % 67 % Lymphocytes % 25 % Monocytes % 6 % Eosinophils % 1 % Basophils % 0 % Neutrophils # 4.9 (1.3-7.7) k/uL Lymphocytes # 1.8 (1.0-4.8) k/uL Monocytes # 0.4 (0-1.0) k/uL Eosinophils # 0.1 (0-0.7) k/uL Basophils # 0.0 (0-0.2) k/uL Sodium 136 L (137-145) mmol/L Potassium 4.6 (3.5-5.1) mmol/L Chloride 100 (98-107) mmol/L Carbon Dioxide 27 (22-30) mmol/L Anion Gap 9 mmol/L BUN 15 (7-17) mg/dL Creatinine 0.60 (0.52-1.04) mg/dL Est GFR (CKD-EPI)AfAm >90 (>60 ml/min/1.73 sqM) Est GFR (CKD-EPI)NonAf >90 (>60 ml/min/1.73 sqM) Glucose 349 H (74-99) mg/dL Plasma Lactic Acid Oliverio 0.8 (0.7-2.0) mmol/L Calcium 9.6 (8.4-10.2) mg/dL Total Bilirubin 0.3 (0.2-1.3) mg/dL AST 22 (14-36) U/L ALT 40 (9-52) U/L Alkaline Phosphatase 60 (38-126) U/L Total Protein 6.4 (6.3-8.2) g/dL Albumin 3.7 (3.5-5.0) g/dL Amylase 44 (30-110) U/L Lipase 150 (23-300) U/L Urine Color Urine Appearance (Clear) Urine pH (5.0-8.0) Ur Specific [place] (1.001-1.035) Urine Protein (Negative) Urine Glucose (UA) (Negative) Urine Ketones (Negative) Urine Blood (Negative) Urine Nitrite (Negative) Urine Bilirubin (Negative) Urine Urobilinogen (<2.0) mg/dL Ur Leukocyte Esterase (Negative) Urine RBC (0-5) /hpf Urine WBC (0-5) /hpf Ur Squamous Epith Cells (0-4) /hpf Urine Bacteria (None) /hpf Urine Yeast (Budding) (None) /hpf 11/01/17 Range/Units 21:40 WBC (3.8-10.6) k/uL RBC (3.80-5.40) m/uL Hgb (11.4-16.0) gm/dL Hct (34.0-46.0) % MCV (80.0-100.0) fL MCH (25.0-35.0) pg MCHC (31.0-37.0) g/dL RDW (11.5-15.5) % Plt Count (150-450) k/uL Neutrophils % % Lymphocytes % % Monocytes % % Eosinophils % % Basophils % % Neutrophils # (1.3-7.7) k/uL Lymphocytes # (1.0-4.8) k/uL Monocytes # (0-1.0) k/uL Eosinophils # (0-0.7) k/uL Basophils # (0-0.2) k/uL Sodium (137-145) mmol/L Potassium (3.5-5.1) mmol/L Chloride (98-107) mmol/L Carbon Dioxide (22-30) mmol/L Anion Gap mmol/L BUN (7-17) mg/dL Creatinine (0.52-1.04) mg/dL Est GFR (CKD-EPI)AfAm (>60 ml/min/1.73 sqM) Est GFR (CKD-EPI)NonAf (>60 ml/min/1.73 sqM) Glucose (74-99) mg/dL Plasma Lactic Acid Oliverio (0.7-2.0) mmol/L Calcium (8.4-10.2) mg/dL Total Bilirubin (0.2-1.3) mg/dL AST (14-36) U/L ALT (9-52) U/L Alkaline Phosphatase (38-126) U/L Total Protein (6.3-8.2) g/dL Albumin (3.5-5.0) g/dL Amylase (30-110) U/L Lipase (23-300) U/L Urine Color Light Yellow Urine Appearance Cloudy H (Clear) Urine pH 5.5 (5.0-8.0) Ur Specific [place] 1.020 (1.001-1.035) Urine Protein 1+ H (Negative) Urine Glucose (UA) 4+ H (Negative) Urine Ketones Negative (Negative) Urine Blood Small H (Negative) Urine Nitrite Positive H (Negative) Urine Bilirubin Negative (Negative) Urine Urobilinogen <2.0 (<2.0) mg/dL Ur Leukocyte Esterase Large H (Negative) Urine RBC 29 H (0-5) /hpf Urine WBC 110 H (0-5) /hpf Ur Squamous Epith Cells 4 (0-4) /hpf Urine Bacteria Occasional H (None) /hpf Urine Yeast (Budding) Occasional H (None) /hpf - Radiology Data Radiology results: report reviewed (CT abdomen pelvis is negative for acute disease), image reviewed Disposition Clinical Impression: Vomiting, Nausea, UTI (urinary tract infection), Abdominal pain Disposition: ADMITTED IP TO THIS HOSP Condition: Fair Is patient prescribed a controlled substance at d/c from ED?: No Referrals: Marleny Farrell DO [Primary Care Provider] - 1-2 days
--- NOTE | 2017-11-01 22:12 | XR ---
EXAMINATION TYPE: XR KUB DATE OF EXAM: 11/01/2017 COMPARISON: 06/24/2017 HISTORY: Left upper quadrant pain TECHNIQUE: 2 views FINDINGS: 2 upright views were obtained and show no sign of intestinal obstruction or pneumoperitoneu m. Fecal pattern is normal. There are clips from cholecystectomy. Lung bases are clear. IMPRESSION: Nonacute abdomen. No change.
[2017-11-01] MEDS ORDERED: GENTAMICIN PER PHARMACY MISCELLANE ONE (23:45)
[2017-11-02] MEDS ORDERED: SODIUM CHLORIDE 0.9% IV SCH ×2
[2017-11-02] MEDS ORDERED: GENTAMICIN IV SCH ×2
[2017-11-02] MEDS ORDERED: GENTAMICIN 400 MG in SODIUM CHLORIDE 0.9% 100 ML IVPB ONE ×2
--- NOTE | 2017-11-02 00:43 | CT ---
EXAMINATION TYPE: CT abdomen pelvis w con DATE OF EXAM: 11/02/2017 COMPARISON: 06/24/2017 HISTORY: Prior on synapse, LUQ and umbilicla abd pain with history of colonoscopy 9 days ago, history of cholecystectomy and hernia repair as well CT DLP: 3774.20 mGycm Automated exposure control for dose reduction was used. TECHNIQUE: Helical acquisition of images was performed from the lung bases through the pelvis. CONTRAST: Performed with Oral Contrast and with IV Contrast, patient injected with 100 mL of Isovue 300. FINDINGS: The lung bases are clear. There is no pleural effusion. Spleen is borderline enlarged. Liver appears normal. There are clips from cholecystectomy. Bile ducts are not dilated. Pancreas appears normal. Th ere is no adrenal mass. Kidneys show satisfactory contrast opacification. There is no hydronephrosis. Ureters are not dilated. There is no retroperitoneal adenopathy. There is no ascites. Bladder disten ds smoothly. Uterus is anteverted. There is no free fluid in the pelvis. I see no intestinal wall thi ckening. There are no dilated loops. Appendix appears normal. I see no bony destructive process. Ther e is narrowing at L5-S1 disc space. IMPRESSION: NEGATIVE CT SCAN OF THE ABDOMEN AND PELVIS. NO ADVERSE CHANGE COMPARED TO OLD EXAM. NORMAL APPENDIX.
[2017-11-02] MEDS: MORPHINE SULFATE 2 MG/ML SYRINGE IVP STA ×2 (01:18→01:26)
[2017-11-02] MEDS ORDERED: ONDANSETRON 4 MG/2 ML VIAL IVP PRN (01:42)
[2017-11-02] MEDS ORDERED: PANTOPRAZOLE 40 MG/10 ML VIAL IVP STA (01:42)
[2017-11-02] MEDS ORDERED: ONDANSETRON 4 MG/2 ML VIAL IVP STA (01:42)
[2017-11-02] MEDS ORDERED: MORPHINE SULFATE 2 MG/ML SYRINGE IVP PRN (01:42)
[2017-11-02 03:45] VITALS: BMI 38.8
[2017-11-02 07:01] LABS: Glucose,Whole Blood 378 mg/dL (75-99)
[2017-11-02] MEDS ORDERED: NYSTATIN 100,000 UNIT/GM POWD 15 GM TOPICAL PRN (08:29)
[2017-11-02] MEDS ORDERED: ALBUTEROL NEBULIZED 2.5 MG/3 ML INHALATION PRN (08:29)
[2017-11-02] MEDS ORDERED: glipiZIDE 5 MG TAB PO SCH (08:30)
[2017-11-02] MEDS: INSULIN ASPART 100 UNIT/ML 1 ML 10 ML VIAL SQ SCH ×4 (08:31→20:24)
[2017-11-02] MEDS: MORPHINE SULFATE ER 15 MG TABLET PO SCH ×2 (08:57→21:45)
[2017-11-02] MEDS: PANTOPRAZOLE 40 MG/10 ML VIAL IVP SCH (08:57)
[2017-11-02] MEDS: DOCUSATE 100 MG CAP PO SCH (09:04)
[2017-11-02] MEDS: valACYclovir 500 MG TAB PO SCH (09:04)
[2017-11-02 11:35] LABS: Glucose,Whole Blood 306 mg/dL (75-99)
[2017-11-02] MEDS: MORPHINE SULFATE IR 15 MG TABLET PO PRN ×3 (12:00→20:02)
[2017-11-02 14:34] LABS: Hemoglobin A1C 11.7 % (4.0-6.0)
[2017-11-02] MEDS ORDERED: TEMAZEPAM 15 MG CAP PO PRN (14:57)
[2017-11-02] MEDS ORDERED: ACETAMINOPHEN TAB 500 MG TAB PO PRN (15:05)
--- NOTE | 2017-11-02 15:26 | P.GSCN ---
<Cinthya Gaffney - Last Filed: 11/02/17 15:27> History of Present Illness Consult date: 11/02/17 Reason for Consult: Abdominal pain History of present illness: 42-year-old female being seen at the request of the attending for a surgical eval. Patient presented to the emergency room on the day of admission with a chief complaint of developing severe left lower quadrant umbilical pain. Patient points to the left lower side is to the reference point. According to the patient she just recently underwent about a week ago a colonoscopy EGD. Stated that the following morning she developed pain in her left side the pain seemed to be getting more symptomatic. Patient stated there was no change in bowel habits. [place] that she had a lot of gas. Denied any nausea vomiting states had a poor oral intake did not feel like eating Subsequently the patient was seen in the emergency room computed tomography scan of the abdomen and pelvis with contrast revealed report negative computed tomography scan no adverse change compared to prior exam no free air Reviewing the colonoscopy and EGD reports done on October 23. The EGD showed superficial gastritis no active duodenitis hiatal hernia 1 cm colonoscopy showed internal hemorrhoids grade 1 scattered diverticulosis with throughout the colon no focal colitis no external prolapsed hemorrhoids Urinalysis positive nitrate large amount of leukocytes small amount of blood urine culture pending afebrile no white count Review of Systems Essentially unremarkable except as mentioned in the present illness Past Medical History Past Medical History: Diabetes Mellitus, Fibromyalgia, Hypertension, Musculoskeletal Disorder Additional Past Medical History / Comment(s): DEGENERATIVE DISC DISEASE, hx of kidney stones, History of Any Multi-Drug Resistant Organisms: MRSA Year Discovered:: 07/04/01 MDRO Source:: gallbladder Past Surgical History: Cholecystectomy, Hernia Repair Additional Past Surgical History / Comment(s): CATARACT SURGERY, kidney stents ; Colonoscopies, Past Anesthesia/Blood Transfusion Reactions: No Reported Reaction Past Psychological History: Anxiety Smoking Status: Never smoker Past Alcohol Use History: None Reported Past Drug Use History: None Reported - Past Family History Father Family Medical History: No Reported History Mother Family Medical History: Cancer Sister(s) Family Medical History: Cancer Medications and Allergies Home Medications Medication Instructions Recorded Confirmed Type Albuterol Inhaler [Ventolin Hfa 1 - 2 puff INHALATION RT-Q6H PRN 06/05/17 History Inhaler] Docusate [Colace] 200 mg PO QAM 09/21/17 11/02/17 History Nystatin 100,000 Unit/gm Powd 100,000 units TOPICAL BID PRN 09/21/17 11/02/17 History [Mycostatin Powder] Cholecalciferol (Vitamin D3) 10,000 unit PO DAILY 11/02/17 11/02/17 History [Vitamin D3] Estradiol Cream [Estrace Cream 0.5 gm VAGINAL DAILY 11/02/17 11/02/17 History 0.01%] Ferrous Sulfate [Feosol] 325 mg PO DAILY 11/02/17 11/02/17 History Morphine Sulfate ER [Ms Contin] 15 mg PO Q12HR 11/02/17 11/02/17 History Morphine Sulfate Ir [MSIR] 15 mg PO Q4H PRN 11/02/17 11/02/17 History Multivitamins, Thera [Multivitamin 1 tab PO DAILY 11/02/17 11/02/17 History (formulary)] glipiZIDE [Glucotrol] 10 mg PO AC-BID 11/02/17 11/02/17 History valACYclovir HCL [Valtrex] 500 mg PO DAILY 11/02/17 11/02/17 History Allergies Allergy/AdvReac Type Severity Reaction Status Date / Time adhesive tape Allergy Severe Rash/Hives Verified 11/02/17 08:27 Cephalosporins Allergy Rash/Hives Verified 11/02/17 08:27 cortisone [Cortisone] Allergy Anaphylaxis Verified 11/02/17 08:27 diphenhydramine HCl Allergy Anaphylaxis Verified 11/02/17 08:27 [From Benadryl] doxycycline Allergy Rash/Hives Verified 11/02/17 08:27 Penicillins Allergy Anaphylaxis Verified 11/02/17 08:27 Quinolones Allergy Rash/Hives Verified 11/02/17 08:27 Sulfa (Sulfonamide Allergy Rash/Hives Verified 11/02/17 08:27 Antibiotics) Surgical - Exam Vital Signs Temp Pulse Resp BP Pulse Ox 98.7 F 92 18 117/83 99 11/01/17 19:49 11/01/17 19:49 11/01/17 19:49 11/01/17 19:49 11/01/17 19:49 GENERAL APPEARANCE: 42-year-old female patient is alert, oriented, in no acute distress. Sitting up in bed talkative VITAL SIGNS: Reviewed HEENT: Head is normocephalic and atraumatic. Pupils are equal and reactive. The nares are patent. Oropharynx is clear without lesions. NECK: Supple without lymphadenopathy. Traches midline. HEART: S1, S2. Regular rate and rhythm. Denying chest pain LUNGS: No crackles or wheezes are heard. Adequate air movement ABDOMEN: Soft, obese nontender nondistended with good bowel sounds. No peritoneal signs. No palpable organomegaly or masses. No frequent stooling asking for diet to be advanced states feels better less abdominal pain denying nausea vomiting EXTREMITIES: Normal skin color and turgor. No cyanosis, rash, ulceration, clubbing or edema. Radial pedal pulses are 2/4 bilaterally. NEUROLOGICAL: No focal deficits. Strength and sensation are grossly intact. Results - Labs 11/01/17 21:34 11/01/17 21:34 Abnormal Lab Results - Last 24 Hours (Table) 11/01/17 11/01/17 11/01/17 Range/Units 21:34 21:34 21:40 Sodium 136 L (137-145) mmol/L Glucose 349 H (74-99) mg/dL POC Glucose (mg/dL) (75-99) mg/dL Hemoglobin A1c 11.7 H (4.0-6.0) % Urine Appearance Cloudy H (Clear) Urine Protein 1+ H (Negative) Urine Glucose (UA) 4+ H (Negative) Urine Blood Small H (Negative) Urine Nitrite Positive H (Negative) Ur Leukocyte Esterase Large H (Negative) Urine RBC 29 H (0-5) /hpf Urine WBC 110 H (0-5) /hpf Urine Bacteria Occasional H (None) /hpf Urine Yeast (Budding) Occasional H (None) /hpf 11/02/17 11/02/17 Range/Units 07:00 11:33 Sodium (137-145) mmol/L Glucose (74-99) mg/dL POC Glucose (mg/dL) 378 H 306 H (75-99) mg/dL Hemoglobin A1c (4.0-6.0) % Urine Appearance (Clear) Urine Protein (Negative) Urine Glucose (UA) (Negative) Urine Blood (Negative) Urine Nitrite (Negative) Ur Leukocyte Esterase (Negative) Urine RBC (0-5) /hpf Urine WBC (0-5) /hpf Urine Bacteria (None) /hpf Urine Yeast (Budding) (None) /hpf Microbiology - Last 24 Hours (Table) 11/01/17 21:40 Urine Culture - Preliminary Urine,Clean Catch Diabetes panel 11/01/17 11/01/17 Range/Units 21:34 21:34 Sodium 136 L (137-145) mmol/L Potassium 4.6 (3.5-5.1) mmol/L Chloride 100 (98-107) mmol/L Carbon Dioxide 27 (22-30) mmol/L BUN 15 (7-17) mg/dL Creatinine 0.60 (0.52-1.04) mg/dL Glucose 349 H (74-99) mg/dL Hemoglobin A1c 11.7 H (4.0-6.0) % Calcium 9.6 (8.4-10.2) mg/dL AST 22 (14-36) U/L ALT 40 (9-52) U/L Alkaline Phosphatase 60 (38-126) U/L Total Protein 6.4 (6.3-8.2) g/dL Albumin 3.7 (3.5-5.0) g/dL Calcium panel 11/01/17 Range/Units 21:34 Calcium 9.6 (8.4-10.2) mg/dL Albumin 3.7 (3.5-5.0) g/dL Pituitary panel 11/01/17 Range/Units 21:34 Sodium 136 L (137-145) mmol/L Potassium 4.6 (3.5-5.1) mmol/L Chloride 100 (98-107) mmol/L Carbon Dioxide 27 (22-30) mmol/L BUN 15 (7-17) mg/dL Creatinine 0.60 (0.52-1.04) mg/dL Glucose 349 H (74-99) mg/dL Calcium 9.6 (8.4-10.2) mg/dL Adrenal panel 11/01/17 Range/Units 21:34 Sodium 136 L (137-145) mmol/L Potassium 4.6 (3.5-5.1) mmol/L Chloride 100 (98-107) mmol/L Carbon Dioxide 27 (22-30) mmol/L BUN 15 (7-17) mg/dL Creatinine 0.60 (0.52-1.04) mg/dL Glucose 349 H (74-99) mg/dL Calcium 9.6 (8.4-10.2) mg/dL Total Bilirubin 0.3 (0.2-1.3) mg/dL AST 22 (14-36) U/L ALT 40 (9-52) U/L Alkaline Phosphatase 60 (38-126) U/L Total Protein 6.4 (6.3-8.2) g/dL Albumin 3.7 (3.5-5.0) g/dL Assessment and Plan Assessment: Impression Present on admission left lower quadrant pain with a computed tomography scan of abdomen and pelvis no acute findings A recent EGD and colonoscopy October 23 showing no active duodenitis superficial gastritis, scattered diverticulosis throughout the colon no focal colitis internal hemorrhoids grade 1 Morbid obesity BMI 38 Chronic pain opiate dependent Present on admission UTI Plan No evidence of an acute surgical abdomen DVT and GI prophylaxis Home meds as appropriate IV fluid for hydration Antibiotics per the attending defer to Repeat labs in the morning The above impression and plan of care have been discussed and directed by signing physician. Cinthya Gaffney nurse practitioner acting as scribe for signing physician. <Laura Alejo - Last Filed: 11/02/17 19:44> Surgical - Exam Vital Signs Temp Pulse Resp BP Pulse Ox 98.7 F 92 18 117/83 99 11/01/17 19:49 11/01/17 19:49 11/01/17 19:49 11/01/17 19:49 11/01/17 19:49 Results - Labs 11/01/17 21:34 11/01/17 21:34 Abnormal Lab Results - Last 24 Hours (Table) 11/01/17 11/01/17 11/01/17 Range/Units 21:34 21:34 21:40 Sodium 136 L (137-145) mmol/L Glucose 349 H (74-99) mg/dL POC Glucose (mg/dL) (75-99) mg/dL Hemoglobin A1c 11.7 H (4.0-6.0) % Urine Appearance Cloudy H (Clear) Urine Protein 1+ H (Negative) Urine Glucose (UA) 4+ H (Negative) Urine Blood Small H (Negative) Urine Nitrite Positive H (Negative) Ur Leukocyte Esterase Large H (Negative) Urine RBC 29 H (0-5) /hpf Urine WBC 110 H (0-5) /hpf Urine Bacteria Occasional H (None) /hpf Urine Yeast (Budding) Occasional H (None) /hpf 06/21/18 06/21/18 06/21/18 Range/Units 07:00 11:33 16:54 Sodium (137-145) mmol/L Glucose (74-99) mg/dL POC Glucose (mg/dL) 378 H 306 H 201 H (75-99) mg/dL Hemoglobin A1c (4.0-6.0) % Urine Appearance (Clear) Urine Protein (Negative) Urine Glucose (UA) (Negative) Urine Blood (Negative) Urine Nitrite (Negative) Ur Leukocyte Esterase (Negative) Urine RBC (0-5) /hpf Urine WBC (0-5) /hpf Urine Bacteria (None) /hpf Urine Yeast (Budding) (None) /hpf Microbiology - Last 24 Hours (Table) 11/01/17 21:40 Urine Culture - Preliminary Urine,Clean Catch Gram Neg Bacilli Diabetes panel 11/01/17 11/01/17 Range/Units 21:34 21:34 Sodium 136 L (137-145) mmol/L Potassium 4.6 (3.5-5.1) mmol/L Chloride 100 (98-107) mmol/L Carbon Dioxide 27 (22-30) mmol/L BUN 15 (7-17) mg/dL Creatinine 0.60 (0.52-1.04) mg/dL Glucose 349 H (74-99) mg/dL Hemoglobin A1c 11.7 H (4.0-6.0) % Calcium 9.6 (8.4-10.2) mg/dL AST 22 (14-36) U/L ALT 40 (9-52) U/L Alkaline Phosphatase 60 (38-126) U/L Total Protein 6.4 (6.3-8.2) g/dL Albumin 3.7 (3.5-5.0) g/dL Calcium panel 11/01/17 Range/Units 21:34 Calcium 9.6 (8.4-10.2) mg/dL Albumin 3.7 (3.5-5.0) g/dL Pituitary panel 11/01/17 Range/Units 21:34 Sodium 136 L (137-145) mmol/L Potassium 4.6 (3.5-5.1) mmol/L Chloride 100 (98-107) mmol/L Carbon Dioxide 27 (22-30) mmol/L BUN 15 (7-17) mg/dL Creatinine 0.60 (0.52-1.04) mg/dL Glucose 349 H (74-99) mg/dL Calcium 9.6 (8.4-10.2) mg/dL Adrenal panel 11/01/17 Range/Units 21:34 Sodium 136 L (137-145) mmol/L Potassium 4.6 (3.5-5.1) mmol/L Chloride 100 (98-107) mmol/L Carbon Dioxide 27 (22-30) mmol/L BUN 15 (7-17) mg/dL Creatinine 0.60 (0.52-1.04) mg/dL Glucose 349 H (74-99) mg/dL Calcium 9.6 (8.4-10.2) mg/dL Total Bilirubin 0.3 (0.2-1.3) mg/dL AST 22 (14-36) U/L ALT 40 (9-52) U/L Alkaline Phosphatase 60 (38-126) U/L Total Protein 6.4 (6.3-8.2) g/dL Albumin 3.7 (3.5-5.0) g/dL Assessment and Plan Plan: Patient seen and evaluated. She is well known to me. Colonoscopy was consistent with diverticulosis without diverticulitis. Findings of gastritis is also reviewed. She complaints of the lower abdomen and suprapubic tenderness. Urinalysis highly suspicious for moderate urinary tract infection. Separately, blood sugars improved with hemoglobin A1c over 11. Previous hemoglobin A1c was as high as 17. May advance diet. Antibiotic management. No surgical intervention needed. Patient will follow- up as outpatient as scheduled.
[2017-11-02] MEDS: GENTAMICIN 180 MG in SODIUM CHLORIDE 0.9% 100 ML IVPB SCH ×2 (15:39→23:06)
[2017-11-02] MEDS: ALPRAZolam 0.25 MG TAB PO PRN ×2 (15:47→20:02)
--- NOTE | 2017-11-02 15:52 | HP ---
HISTORY AND PHYSICAL DATE OF SERVICE: 11/02/2017 CHIEF COMPLAINT: Abdominal pain and urinary tract infection. HISTORY OF PRESENT ILLNESS: This 42-year-old woman with a past medical history of multiple medical history diabetes, fibromyalgia, hypertension, history of DJD, cholecystectomy being followed by Dr. Marleny Farrell in the outpatient setting, was recently admitted with diabetes uncontrolled. The patient also had features of fibromyalgia. Patient also improved significantly. Patient went home. The patient was trying to lose weight and the patient also had a colonoscopy by Dr. Alejo about 10 days ago and colonoscopy showed scattered diverticulosis and polyp at descending colon. The patient is subsequently complaining of pain situated around the umbilicus and subsequently pain shifted to the left part of the abdomen, also the back pain and the patient came to [facility] and was admitted for further evaluation and treatment. The blood sugar is elevated and the patient also had features of UTI. There is no history of fever, rigors. No headache, loss of consciousness, seizures. PAST MEDICAL HISTORY: Diabetes, fibromyalgia, hypertension, DJD, history of MRSA, history of gallbladder cholecystectomy. MEDICATIONS: Prior to admission include home medications are: 1. Valtrex 500 mg p.o. daily. 2. Glucotrol 10 mg p.o. a.c. b.i.d. 3. Nystatin 100,000 topically b.i.d. p.r.n. 4. Multivitamin 1 p.o. daily. 5. MS-IR 15 mg q.4h p.r.n. 6. MS Contin 15 mg p.o. b.i.d. 7. Iron sulfate 325 mg p.o. daily. 8. Estrace cream 0.01% and 0.5 to vagina daily. 9. Colace 200 mg q.a.m. 10.Vitamin D3 10,000 daily. 11.Ventolin HFA 1-2 puffs q.6h p.r.n. ALLERGIES: ADHESIVE TAPE, CEPHALOSPORIN, CORTISONE, BENADRYL, DOXYCYCLINE, PENICILLIN, QUINOLONES, SULFA. FAMILY HISTORY: No history of heart disease or strokes in family. SOCIAL HISTORY: No history of smoking, no history of alcohol. REVIEW OF SYSTEMS: ENT: No diminished hearing or vision. CARDIOVASCULAR: No angina. RESPIRATORY: No cough or hemoptysis. GI: Mentioned earlier. : Mentioned earlier. NERVOUS SYSTEM: No numbness or weakness. ALLERGY/IMMUNOLOGY: As mentioned earlier. ENDOCRINE: As mentioned earlier. CONSTITUTIONAL: As mentioned earlier. DERMATOLOGY: Negative. RHEUMATOLOGY: Negative. PSYCHIATRY: As mentioned earlier. EXAMINATION: Pulse 88, blood pressure 118/75, respiration 18, temperature 98.4, pulse ox 91% on room air. HEENT: Conjunctivae normal. Oral mucosa moist. Neck is no jugular venous distention. No carotid bruit. No lymph node enlargement. CARDIOVASCULAR: S1, S2. No S3, no S4. RESPIRATORY: Breath sounds diminished in the bases. A few scattered rhonchi. No crackles. ABDOMEN: Soft. Mild diffuse discomfort on palpation especially the left lower part, otherwise no mass palpable. No ascites. LEGS: No edema, no swelling. NERVOUS SYSTEM: Higher function as mentioned earlier, moves all 4 limbs. No focal motor or sensory deficits. LYMPHATICS: No lymphadenopathy in the neck, axillae, groin. SKIN: No ulcer, rash, bleeding. JOINTS: No active deforming arthropathy. LABS: At this time show CBC within normal. Glucose 320. UA noted. ASSESSMENT: 1. Abdominal pain for evaluation. 2. Possible acute urinary tract infection with pyelonephritis. 3. Hyponatremia. 4. Diabetes type 2, uncontrolled with hyperglycemia. 5. Fibromyalgia. 6. Hypertension. 7. History of degenerative joint disease. 8. History of nephrolithiasis. 9. History of MRSA. 10.History of cholecystectomy. 11.History of anxiety. 12.Obesity with body mass index of 38.9. RECOMMENDATIONS AND DISCUSSION: In this 42-year-old woman who presented with multiple medical issues at this time I recommend to continue current management and symptomatic treatment. Will continue to monitor. I will recommend IV antibiotics. Patient started on gentamicin IV. Patient allergic to multiple antibiotics. Obtain the cultures. Monitor blood sugars closely. Resume home medications. DVT prophylaxis and I would also recommend diabetic education consultation as well as recommend surgical evaluation also. Prognosis guarded. Further recommendations to follow. MMODL / IJN: [id number] /
[2017-11-02 17:05] LABS: Glucose,Whole Blood 201 mg/dL (75-99)
[2017-11-02] MEDS: glipiZIDE 10 MG TAB PO SCH (17:43)
[2017-11-02 20:04] LABS: Glucose,Whole Blood 259 mg/dL (75-99)
[2017-11-02] MEDS: HEPARIN SODIUM,PORCINE 5,000 UNIT/ML 1 ML VIAL SQ SCH (20:24)
[2017-11-03] MEDS: MORPHINE SULFATE IR 15 MG TABLET PO PRN ×7 (00:39→22:33)
[2017-11-03] MEDS: ALPRAZolam 0.25 MG TAB PO PRN ×3 (06:18→23:56)
[2017-11-03 06:49] LABS: Glucose,Whole Blood 199 mg/dL (75-99)
[2017-11-03] MEDS: PANTOPRAZOLE 40 MG/10 ML VIAL IVP SCH (07:55)
[2017-11-03] MEDS: INSULIN ASPART 100 UNIT/ML 1 ML 10 ML VIAL SQ SCH ×4 (07:55→21:11)
[2017-11-03] MEDS: GENTAMICIN 180 MG in SODIUM CHLORIDE 0.9% 100 ML IVPB SCH ×3 (07:55→23:56)
[2017-11-03] MEDS: DOCUSATE 100 MG CAP PO SCH (07:56)
[2017-11-03] MEDS: glipiZIDE 10 MG TAB PO SCH ×2 (07:56→17:28)
[2017-11-03] MEDS: FERROUS SULFATE 325 MG TAB PO SCH (07:56)
[2017-11-03] MEDS: valACYclovir 500 MG TAB PO SCH (07:56)
[2017-11-03] MEDS: MULTIVITAMINS, THERA 1 EACH TAB PO SCH (07:56)
[2017-11-03] MEDS: HEPARIN SODIUM,PORCINE 5,000 UNIT/ML 1 ML VIAL SQ SCH ×2 (07:57→21:16)
[2017-11-03] MEDS: CHOLECALCIFEROL 1,000 UNIT TAB PO SCH (07:58)
[2017-11-03 08:04] LABS: Basophils % (A) 0 %; Eosinophils % (A) 0 %; HCT 42.9 % (34.0-46.0); HGB 14.2 gm/dL (11.4-16.0); Lymphocytes # (A) 2.3 k/uL (1.0-4.8); Lymphocytes % (A) 36 %; MCH 29.2 pg (25.0-35.0); MCV 88.5 fL (80.0-100.0); Monocytes # (A) 0.3 k/uL (0-1.0); Monocytes % (A) 5 %; Neutrophils # (A) 3.7 k/uL (1.3-7.7); Neutrophils % (A) 57 %; Platelet Count 193 k/uL (150-450); RBC 4.85 m/uL (3.80-5.40); RDW 13.8 % (11.5-15.5); WBC 6.5 k/uL (3.8-10.6)
[2017-11-03] MEDS: MORPHINE SULFATE ER 15 MG TABLET PO SCH ×2 (08:09→21:15)
[2017-11-03 08:15] LABS: Anion Gap 11 mmol/L; Blood Urea Nitrogen 18 mg/dL (7-17); Calcium 9.3 mg/dL (8.4-10.2); Carbon Dioxide 25 mmol/L (22-30); Chloride 100 mmol/L (98-107); Glucose 213 mg/dL (74-99); Potassium 4.6 mmol/L (3.5-5.1); Sodium 136 mmol/L (137-145)
[2017-11-03 11:07] LABS: Glucose,Whole Blood 241 mg/dL (75-99)
[2017-11-03 17:14] LABS: Glucose,Whole Blood 185 mg/dL (75-99)
--- NOTE | 2017-11-03 17:53 | PN ---
PROGRESS NOTE DATE OF SERVICE: 11/03/2017 This 42-year-old woman who was admitted with abdominal pain and UTI is being closely followed. The urine culture grows Gram-negative bacilli; final identification is pending. No chest pain. No palpitations. Dr. Alejo has seen her from Surgery and no surgical abdomen has been determined. PHYSICAL EXAMINATION: Alert and oriented x3. Pulse 76, blood pressure 98/66, respiration 16, temperature 98.2, pulse ox 96% on room air. HEENT: Conjunctivae normal. Oral mucosa moist. NECK: No jugular venous distention. No carotid bruit. No lymph node enlargement. CARDIOVASCULAR SYSTEM: S1, S2 muffled. RESPIRATORY SYSTEM: Breath sounds diminished at the bases. No rhonchi. No crackles. ABDOMEN: Soft. Mild diffuse discomfort. No guarding. No rigidity. No mass palpable. NERVOUS SYSTEM: No focal deficit. LABS: CBC within normal limits. Sodium 136. Glucose 241. ASSESSMENT: 1. Abdominal pain for evaluation. 2. Acute urinary tract infection, present on admission, with pyelonephritis. 3. Hyponatremia. 4. Diabetes mellitus, type 2, uncontrolled, with hyperglycemia. 5. Fibromyalgia. 6. Hypertension. 7. History of degenerative joint disease. 8. History of nephrolithiasis. 9. History of methicillin-resistant Staphylococcus aureus. 10.History of cholecystectomy. 11.History of anxiety. 12.Obesity with body mass index of 38.9. RECOMMENDATIONS AND DISCUSSION: I recommend to continue current medication, continue symptomatic treatment, continue with broad-spectrum IV antibiotics. Will await the final identification of the organisms. Guarded prognosis. Further recommendations to follow. Surgical consult appreciated. MMODL / IJN: [id number] /
[2017-11-03 20:38] LABS: Glucose,Whole Blood 191 mg/dL (75-99)
[2017-11-03] MEDS: ESTRADIOL 0.1 MG/GM VAGINAL CREAM 42.5 GM TUBE VAGINAL SCH (21:16)
--- NOTE | 2017-11-03 22:03 | P.PN ---
Subjective Progress Note Date: 11/03/17 The patient presents with history of abdominal pain. Findings consistent with UTI. She reports feeling much better today. She is tolerating diet. She is actually very happy with additional weight loss which she's had in 1 month. Objective - Vital Signs Vital signs: Vital Signs Temp 98.3 F 11/03/17 15:14 Pulse 76 11/03/17 15:14 Resp 16 11/03/17 15:14 BP 98/66 11/03/17 15:14 Pulse Ox 96 11/03/17 15:14 Intake & Output 11/03/17 11/03/17 11/04/17 06:59 18:59 06:59 Weight 130 kg Other: Voiding Method Toilet Toilet # Voids 1 4 # Bowel Movements 0 - Exam GENERAL: Well developed and in no acute distress. Pleasant. HEENT: No sclera icterus. Extraocular movements grossly intact. Moist buccal mucosa. Head is atraumatic, normocephalic. Hears conversational speech. No nasal drainage. NECK: Supple without lymphadenopathy. No JV distention. CHEST: Non-labored respirations and equal bilateral excursions. CARDIOVASCULAR: Regular rate and rhythm. Palpable 2+ radial pulses. ABDOMEN: Soft. No peritonitis. Improved left flank/lower abdominal pain MUSCULOSKELETAL: No clubbing, cyanosis or edema. NEUROLOGIC: No focal or lateralizing signs. PSYCH: Appropriate affect. Alert and oriented to person, place and time. SKIN: Good skin turgor. Well perfused. - Labs CBC & Chem 7: 11/03/17 07:33 11/03/17 07:33 Labs: Abnormal Lab Results - Last 24 Hours (Table) 11/03/17 11/03/17 11/03/17 Range/Units 06:46 07:33 11:04 Sodium 136 L (137-145) mmol/L BUN 18 H (7-17) mg/dL Glucose 213 H (74-99) mg/dL POC Glucose (mg/dL) 199 H 241 H (75-99) mg/dL 11/03/17 11/03/17 Range/Units 17:13 20:35 Sodium (137-145) mmol/L BUN (7-17) mg/dL Glucose (74-99) mg/dL POC Glucose (mg/dL) 185 H 191 H (75-99) mg/dL Microbiology - Last 24 Hours (Table) 11/02/17 15:10 Blood Culture - Preliminary Blood No Growth after 24 hours 11/01/17 21:40 Urine Culture - Final Urine,Clean Catch Escherichia coli Assessment and Plan (1) Nephrolithiasis Current Visit: Yes Status: Acute Code(s): N20.0 - CALCULUS OF KIDNEY SNOMED Code(s): 76999901 (2) Urinary tract infection Current Visit: Yes Status: Acute Code(s): N39.0 - URINARY TRACT INFECTION, SITE NOT SPECIFIED SNOMED Code(s): 89173903 Plan: 1. Patient is clinically improving. 2. Diet as tolerated. 3. Follow-up as outpatient.
[2017-11-04] MEDS: MORPHINE SULFATE IR 15 MG TABLET PO PRN ×5 (05:16→23:20)
[2017-11-04 07:20] LABS: Glucose,Whole Blood 201 mg/dL (75-99)
[2017-11-04] MEDS ORDERED: GENTAMICIN TROUGH DUE 1 EACH MISC MISCELLANE ONE (07:30)
[2017-11-04 07:41] LABS: Basophils # (A) 0.1 k/uL (0-0.2); Basophils % (A) 1 %; Eosinophils % (A) 0 %; HCT 43.5 % (34.0-46.0); HGB 14.5 gm/dL (11.4-16.0); Lymphocytes % (A) 41 %; MCH 28.8 pg (25.0-35.0); MCHC 33.2 g/dL (31.0-37.0); MCV 86.7 fL (80.0-100.0); Mean Platelet Volume 8.4; Monocytes # (A) 0.4 k/uL (0-1.0); Monocytes % (A) 7 %; Neutrophils # (A) 2.4 k/uL (1.3-7.7); Neutrophils % (A) 48 %; Platelet Count 196 k/uL (150-450); RBC 5.02 m/uL (3.80-5.40); RDW 13.4 % (11.5-15.5); WBC 4.9 k/uL (3.8-10.6)
[2017-11-04 07:58] LABS: Anion Gap 10 mmol/L; Blood Urea Nitrogen 16 mg/dL (7-17); Calcium 9.1 mg/dL (8.4-10.2); Carbon Dioxide 29 mmol/L (22-30); Chloride 99 mmol/L (98-107); Glucose 206 mg/dL (74-99); Potassium 4.4 mmol/L (3.5-5.1); Sodium 138 mmol/L (137-145)
[2017-11-04] MEDS: PANTOPRAZOLE 40 MG/10 ML VIAL IVP SCH (08:50)
[2017-11-04] MEDS: CHOLECALCIFEROL 1,000 UNIT TAB PO SCH (08:50)
[2017-11-04] MEDS: valACYclovir 500 MG TAB PO SCH (08:50)
[2017-11-04] MEDS: MULTIVITAMINS, THERA 1 EACH TAB PO SCH (08:50)
[2017-11-04] MEDS: DOCUSATE 100 MG CAP PO SCH (08:50)
[2017-11-04] MEDS: FERROUS SULFATE 325 MG TAB PO SCH (08:50)
[2017-11-04] MEDS: glipiZIDE 10 MG TAB PO SCH ×2 (08:50→17:54)
[2017-11-04] MEDS: HEPARIN SODIUM,PORCINE 5,000 UNIT/ML 1 ML VIAL SQ SCH ×2 (08:51→21:21)
[2017-11-04] MEDS: INSULIN ASPART 100 UNIT/ML 1 ML 10 ML VIAL SQ SCH ×4 (09:00→21:37)
[2017-11-04] MEDS: GENTAMICIN 180 MG in SODIUM CHLORIDE 0.9% 100 ML IVPB SCH (09:00)
[2017-11-04] MEDS: MORPHINE SULFATE ER 15 MG TABLET PO SCH ×2 (09:02→21:22)
[2017-11-04] MEDS: ALPRAZolam 0.25 MG TAB PO PRN ×2 (09:04→14:47)
[2017-11-04 11:51] LABS: Glucose,Whole Blood 212 mg/dL (75-99)
[2017-11-04 17:16] LABS: Glucose,Whole Blood 226 mg/dL (75-99)
--- NOTE | 2017-11-04 20:03 | PN ---
PROGRESS NOTE DATE OF SERVICE: 11/04/2017. INTERIM HISTORY: This 42-year-old woman was admitted with UTI, had E coli grown from the culture. E. coli is polysensitive at this time. Patient still complaining of abdominal pain. Surgery is following the patient. No chest pain. No palpitations. No fever. EXAM: Alert and oriented times three. Pulse 111. Blood pressure 104/68, respiration 18, temperature 97.8, pulse ox 94% on room air. HEENT: Conjunctivae normal. NECK: No jugular venous distention. CARDIOVASCULAR: S1, S2 muffled. RESPIRATORY: Breath sounds diminished in the bases. No rhonchi. No crackles. ABDOMEN: Soft, mild diffuse tenderness. Legs are no edema, no swelling. CENTRAL NERVOUS SYSTEM: No focal deficits. LABS: CBC within normal limits. Glucose 226. Gentamicin noted. ASSESSMENT: 1. Acute urinary tract infection present on admission with pyelonephritis secondary to E coli. 2. Abdominal pain secondary to pyelonephritis. 3. Hyponatremia. 4. Diabetes type 2, uncontrolled with hyperglycemia. 5. History of fibromyalgia. 6. Hypertension. 7. History of degenerative joint disease. 8. History of nephrolithiasis. 9. History of Methicillin-resistant Staphylococcus aureus. 10.History of cholecystectomy. 11.Anxiety. 12.Obesity with body mass index of 38.9. RECOMMENDATIONS AND DISCUSSION: Recommend to continue current medications, management and symptomatic treatment. Continue with the antibiotics. Closely monitor. Further recommendations to follow. See orders for further details. Symptomatic treatment. Increase ambulation. Please see orders for further details. MMODL / IJN: [id number] / MTDD
[2017-11-04 21:21] LABS: Glucose,Whole Blood 194 mg/dL (75-99)
[2017-11-04] MEDS: GENTAMICIN 120 MG in SODIUM CHLORIDE 0.9% 100 ML IVPB SCH (21:22)
[2017-11-04] MEDS: ESTRADIOL 0.1 MG/GM VAGINAL CREAM 42.5 GM TUBE VAGINAL SCH (21:22)
[2017-11-05] MEDS: MORPHINE SULFATE IR 15 MG TABLET PO PRN ×5 (05:44→22:50)
[2017-11-05] MEDS: ALPRAZolam 0.25 MG TAB PO PRN ×3 (06:20→22:51)
[2017-11-05 07:19] LABS: Glucose,Whole Blood 243 mg/dL (75-99)
[2017-11-05] MEDS: INSULIN ASPART 100 UNIT/ML 1 ML 10 ML VIAL SQ SCH ×4 (07:54→21:15)
[2017-11-05] MEDS: PANTOPRAZOLE 40 MG/10 ML VIAL IVP SCH (07:55)
[2017-11-05] MEDS: MULTIVITAMINS, THERA 1 EACH TAB PO SCH (07:55)
[2017-11-05] MEDS: HEPARIN SODIUM,PORCINE 5,000 UNIT/ML 1 ML VIAL SQ SCH ×2 (07:55→21:15)
[2017-11-05] MEDS: valACYclovir 500 MG TAB PO SCH (07:55)
[2017-11-05] MEDS: DOCUSATE 100 MG CAP PO SCH (07:56)
[2017-11-05] MEDS: FERROUS SULFATE 325 MG TAB PO SCH (07:56)
[2017-11-05] MEDS: glipiZIDE 10 MG TAB PO SCH ×2 (07:56→18:12)
[2017-11-05] MEDS: CHOLECALCIFEROL 1,000 UNIT TAB PO SCH (07:57)
[2017-11-05] MEDS: MORPHINE SULFATE ER 15 MG TABLET PO SCH ×2 (08:07→21:14)
[2017-11-05 08:50] LABS: Basophils % (A) 1 %; Eosinophils % (A) 1 %; HCT 43.6 % (34.0-46.0); HGB 14.6 gm/dL (11.4-16.0); Lymphocytes # (A) 1.8 k/uL (1.0-4.8); Lymphocytes % (A) 33 %; MCH 29.3 pg (25.0-35.0); MCHC 33.5 g/dL (31.0-37.0); MCV 87.3 fL (80.0-100.0); Mean Platelet Volume 7.6; Monocytes # (A) 0.4 k/uL (0-1.0); Monocytes % (A) 8 %; Neutrophils # (A) 3.1 k/uL (1.3-7.7); Neutrophils % (A) 56 %; Platelet Count 193 k/uL (150-450); RBC 4.99 m/uL (3.80-5.40); WBC 5.5 k/uL (3.8-10.6)
[2017-11-05] MEDS: GENTAMICIN 120 MG in SODIUM CHLORIDE 0.9% 100 ML IVPB SCH ×2 (08:56→21:14)
[2017-11-05 09:04] LABS: Anion Gap 8 mmol/L; Blood Urea Nitrogen 13 mg/dL (7-17); Calcium 9.2 mg/dL (8.4-10.2); Carbon Dioxide 32 mmol/L (22-30); Chloride 97 mmol/L (98-107); Glucose 240 mg/dL (74-99); Potassium 4.4 mmol/L (3.5-5.1); Sodium 137 mmol/L (137-145)
[2017-11-05 11:58] LABS: Glucose,Whole Blood 184 mg/dL (75-99)
[2017-11-05 17:10] LABS: Glucose,Whole Blood 234 mg/dL (75-99)
--- NOTE | 2017-11-05 19:01 | PN ---
PROGRESS NOTE DATE OF SERVICE: 11/05/2017. INTERVAL HISTORY: This 42-year-old woman who was admitted with UTI also had features of pyelonephritis, secondary to E coli, which is poly sensitive. No chest pain. No palpitations. No fever. Complaining of abdominal discomfort. EXAM: Alert and oriented times three. Pulse 92, blood pressure 117/74, respiration 18, temperature 97 degrees, pulse ox 94% on room air. HEENT: Conjunctivae normal. Neck: No jugular venous distention. CARDIOVASCULAR: S1, S2 muffled. Respiratory: Breath sounds diminished in the bases. No rhonchi. No crackles. Abdomen is soft. Mild diffuse discomfort. Legs: No edema. No swelling. Central nervous system: No focal deficits. LABS: CBC within normal limits and glucose 241, 184. ASSESSMENT: 1. Acute urinary tract infection present on admission with pyelonephritis secondary to E coli. 2. Abdominal pain secondary to pyelonephritis. 3. Hyponatremia. 4. Diabetes type 2, uncontrolled with hyperglycemia. 5. History of fibromyalgia. 6. Hypertension. 7. History of degenerative joint disease. 8. History of nephrolithiasis. 9. History of Methicillin-resistant Staphylococcus aureus. 10.History of cholecystectomy. 11.History of anxiety. 12.Obesity with body mass index of 38.9. RECOMMENDATIONS AND DISCUSSION: Recommend to continue current medications, continue to monitor, symptomatic treatment. At this time, I would recommend continue with broad-spectrum IV antibiotics. Patient is on IV gentamicin. The BUN and creatinine is being closely watched. Otherwise continue to monitor. Further recommendations to follow. MMODL / IJN: [id number] /
[2017-11-05 20:05] LABS: Glucose,Whole Blood 241 mg/dL (75-99)
[2017-11-05 20:57] VITALS: RESP 16
[2017-11-05] MEDS: ESTRADIOL 0.1 MG/GM VAGINAL CREAM 42.5 GM TUBE VAGINAL SCH (21:13)
[2017-11-06 05:03] VITALS: BP 130/68; TEMP 97.9
[2017-11-06] MEDS: MORPHINE SULFATE IR 15 MG TABLET PO PRN ×2 (05:40→09:45)
[2017-11-06] MEDS: INSULIN ASPART 100 UNIT/ML 1 ML 10 ML VIAL SQ SCH ×2 (07:47→13:05)
[2017-11-06 08:10] LABS: Glucose,Whole Blood 205 mg/dL (75-99)
[2017-11-06] MEDS: glipiZIDE 10 MG TAB PO SCH (08:19)
[2017-11-06] MEDS: MORPHINE SULFATE ER 15 MG TABLET PO SCH (08:21)
[2017-11-06] MEDS: HEPARIN SODIUM,PORCINE 5,000 UNIT/ML 1 ML VIAL SQ SCH (08:21)
[2017-11-06] MEDS: FERROUS SULFATE 325 MG TAB PO SCH (08:21)
[2017-11-06] MEDS: GENTAMICIN 120 MG in SODIUM CHLORIDE 0.9% 100 ML IVPB SCH (08:21)
[2017-11-06] MEDS: DOCUSATE 100 MG CAP PO SCH (08:21)
[2017-11-06] MEDS: PANTOPRAZOLE 40 MG/10 ML VIAL IVP SCH (08:22)
[2017-11-06] MEDS: valACYclovir 500 MG TAB PO SCH (08:22)
[2017-11-06] MEDS: MULTIVITAMINS, THERA 1 EACH TAB PO SCH (08:22)
[2017-11-06] MEDS: ALPRAZolam 0.25 MG TAB PO PRN ×2 (08:23→13:09)
[2017-11-06] MEDS ORDERED: CHOLECALCIFEROL 1,000 UNIT TAB PO SCH (09:00)
[2017-11-06 09:25] LABS: Basophils % (A) 1 %; Eosinophils % (A) 0 %; HCT 45.8 % (34.0-46.0); HGB 15.3 gm/dL (11.4-16.0); Lymphocytes # (A) 1.8 k/uL (1.0-4.8); Lymphocytes % (A) 31 %; MCH 29.3 pg (25.0-35.0); MCHC 33.3 g/dL (31.0-37.0); MCV 87.8 fL (80.0-100.0); Mean Platelet Volume 7.9; Monocytes # (A) 0.4 k/uL (0-1.0); Monocytes % (A) 7 %; Neutrophils # (A) 3.4 k/uL (1.3-7.7); Neutrophils % (A) 59 %; Platelet Count 196 k/uL (150-450); RBC 5.22 m/uL (3.80-5.40); RDW 13.7 % (11.5-15.5); WBC 5.7 k/uL (3.8-10.6)
[2017-11-06 09:48] LABS: Anion Gap 8 mmol/L; Blood Urea Nitrogen 12 mg/dL (7-17); Calcium 9.3 mg/dL (8.4-10.2); Carbon Dioxide 31 mmol/L (22-30); Chloride 97 mmol/L (98-107); Glucose 209 mg/dL (74-99); Potassium 4.6 mmol/L (3.5-5.1); Sodium 136 mmol/L (137-145)
[2017-11-06 11:05] VITALS: PULSE 92
[2017-11-06 11:40] LABS: Glucose,Whole Blood 232 mg/dL (75-99)
--- NOTE | 2017-11-06 17:08 | DS ---
DISCHARGE SUMMARY DATE OF SERVICE: 11/06/2017. FINAL DIAGNOSES: 1. Acute urinary tract infection, present on admission with pyelonephritis secondary to E coli. 2. Abdominal pain secondary to pyelonephritis. 3. Hyponatremia. 4. Diabetes mellitus type 2, uncontrolled with hyperglycemia. 5. History of fibromyalgia. 6. Hypertension. 7. History of degenerative joint disease. 8. History of nephrolithiasis. 9. History of MRSA. 10.History of cholecystectomy. 11.History of anxiety. 12.Obesity with body mass index 38.9. DISCHARGE DISPOSITION: The patient will be discharged in stable condition with guarded prognosis. HISTORY OF PRESENT ILLNESS: This 42-year-old woman with a past medical history of multiple medical problems was admitted with acute pyelonephritis secondary to urinary tract infection. Patient was treated with IV antibiotics. Surgery also saw the patient. Patient improved significantly. Vitals are stable. CARDIOVASCULAR: S1, S2. ABDOMEN: Soft. NERVOUS SYSTEM: No focal deficits. Patient also had a fibromyalgia. Recommend to follow up with expenditure requisition clerk for evaluation management of fibromyalgia. DISCHARGE ADVICE AND MEDICATIONS: 1. Diet is cardiac. 2. Activity limited until followup. 3. Follow up with Dr. Marleny Farrell in 2-3 days. 4. Follow with Dr. Alejo and Dr. Kelly as recommended. MEDICATIONS: 1. Albuterol 1-2 puffs q.6h p.r.n. 2. Xanax 0.5 t.i.d. p.r.n. 3. Vitamin D3 10,000 daily. 4. Colace 200 mg q.a.m. 5. Estrace 0.5 mg p.r.n. 6. Iron sulfate 320 mg p.o. daily. 7. Glucotrol 10 mg p.o. b.i.d. 8. MS Contin 15 mg p.o. b.i.d. 9. MS-IR 15 mg q.4h p.r.n. 10.Multivitamins 1 p.o. daily. 11.Nitrofurantoin 100 mg p.o. b.i.d. 12.Nystatin p.r.n. 13.Valtrex 500 mg p.o. daily. Once again the patient is being discharged in stable condition with guarded prognosis. MMODL / IJN: [id number] /
[2017-11-07] MEDS ORDERED: GENTAMICIN TROUGH DUE 1 EACH MISC MISCELLANE ONE (08:00)
[2017-11-07] MEDS ORDERED: GENTAMICIN PEAK DUE 1 EACH MISC MISCELLANE ONE (10:30)
== END 2017-11-06 14:48 | disposition home or self-care (01) | DRG 690 ==
LOC: EC 19:47 → 5MS5E 11-02 01:46 → INTOOBSV 11-02 01:46 → OBSVTOIN 11-05 09:06
PROVIDERS: ADMIT Hospitalist; ATTEND Hospitalist
DX: N10 Acute pyelonephritis (principal); E87.1 Hypo-osmolality and hyponatremia; B96.20 Unspecified Escherichia coli [E. coli] as the cause of diseases classified elsewhere; D12.4 Benign neoplasm of descending colon; E11.65 Type 2 diabetes mellitus with hyperglycemia; E66.01 Morbid (severe) obesity due to excess calories; F41.9 Anxiety disorder, unspecified; G89.29 Other chronic pain; I10 Essential (primary) hypertension; K57.30 Diverticulosis of large intestine without perforation or abscess without bleeding; M79.7 Fibromyalgia; M19.90 Unspecified osteoarthritis, unspecified site; K44.9 Diaphragmatic hernia without obstruction or gangrene; K64.8 Other hemorrhoids; Z68.38 Body mass index [BMI] 38.0-38.9, adult; Z79.84 Long term (current) use of oral hypoglycemic drugs; Z79.891 Long term (current) use of opiate analgesic; Z79.899 Other long term (current) drug therapy; Z86.14 Personal history of Methicillin resistant Staphylococcus aureus infection; Z87.442 Personal history of urinary calculi; Z90.49 Acquired absence of other specified parts of digestive tract; Z98.42 Cataract extraction status, left eye; Z98.41 Cataract extraction status, right eye; Z96.1 Presence of intraocular lens; Z88.1 Allergy status to other antibiotic agents; Z88.0 Allergy status to penicillin; Z88.2 Allergy status to sulfonamides; Z88.8 Allergy status to other drugs, medicaments and biological substances; Z91.048 Other nonmedicinal substance allergy status; Z80.9 Family history of malignant neoplasm, unspecified
CPT/HCPCS: 36415; 74018; 74177; 80048; 80053; 80170; 81001; 82150; 83036; 83605; 83690; 85025; 87040; 87077; 87086; 87186; 94640; 96361; 96365; 96375; 96376; 99285

== ENCOUNTER → 2017-11-10 | Outpatient (CLI) | payer OTHER ==
[2017-11-10 11:56] LABS: Basophils % (A) 1 %; Eosinophils % (A) 0 %; HCT 48.4 % (34.0-46.0); HGB 15.7 gm/dL (11.4-16.0); Lymphocytes # (A) 1.4 k/uL (1.0-4.8); Lymphocytes % (A) 26 %; MCH 28.4 pg (25.0-35.0); MCHC 32.4 g/dL (31.0-37.0); MCV 87.7 fL (80.0-100.0); Mean Platelet Volume 7.6; Monocytes # (A) 0.3 k/uL (0-1.0); Monocytes % (A) 5 %; Neutrophils # (A) 3.7 k/uL (1.3-7.7); Neutrophils % (A) 67 %; Platelet Count 236 k/uL (150-450); RBC 5.51 m/uL (3.80-5.40); RDW 13.6 % (11.5-15.5); WBC 5.6 k/uL (3.8-10.6)
[2017-11-10 12:14] LABS: Anion Gap 12 mmol/L; Blood Urea Nitrogen 13 mg/dL (7-17); Carbon Dioxide 28 mmol/L (22-30); Chloride 96 mmol/L (98-107); Glucose 395 mg/dL (74-99); Sodium 136 mmol/L (137-145)
== END | disposition home or self-care (01) ==
LOC: LABWHC1 11:34
PROVIDERS: ATTEND Nurse Practitioner
DX: N39.0 Urinary tract infection, site not specified (principal)
CPT/HCPCS: 36415; 80048; 85025

== ENCOUNTER 2017-11-11 20:28 | Emergency (ER) | payer OTHER ==
[2017-11-11] MEDS ORDERED: KETOROLAC 30 MG/ML 1 ML VIAL IVP STA (22:22)
[2017-11-11] MEDS ORDERED: SODIUM CHLORIDE 0.9% 1,000 ML IV STA (22:22)
[2017-11-11 22:44] LABS: Amorphous Sediment,Urine Occasional /hpf; Appearance,Urine Cloudy (Clear); Bacteria,Urine Occasional /hpf; Bilirubin,Urine Negative (Negative); Blood,Urine Negative (Negative); Budding Yeast,Urine Rare /hpf; Color,Urine Light Yellow; Glucose,Urine (UA) 4+ (Negative); Ketones,Urine Negative (Negative); Leukocyte Esterase,Urine Large (Negative); Nitrite,Urine Negative (Negative); Protein,Urine Trace (Negative); RBC,Urine 2 /hpf (0-5); Specific Gravity,Urine 1.028 (1.001-1.035); Squamous Epithelial Cell,Urine 8 /hpf (0-4); Urobilinogen,Urine <2.0 mg/dL (<2.0); WBC,Urine 95 /hpf (0-5)
[2017-11-11 22:53] LABS: Basophils # (A) 0.1 k/uL (0-0.2); Basophils % (A) 1 %; Eosinophils % (A) 0 %; HCT 45.2 % (34.0-46.0); Lymphocytes # (A) 1.9 k/uL (1.0-4.8); Lymphocytes % (A) 28 %; MCH 28.3 pg (25.0-35.0); MCHC 33.2 g/dL (31.0-37.0); MCV 85.5 fL (80.0-100.0); Mean Platelet Volume 7.7; Monocytes # (A) 0.5 k/uL (0-1.0); Monocytes % (A) 7 %; Neutrophils # (A) 4.2 k/uL (1.3-7.7); Neutrophils % (A) 63 %; Platelet Count 252 k/uL (150-450); RBC 5.29 m/uL (3.80-5.40); RDW 13.4 % (11.5-15.5); WBC 6.7 k/uL (3.8-10.6)
[2017-11-11 23:06] LABS: ALT 40 U/L (9-52); AST 21 U/L (14-36); Albumin 3.7 g/dL (3.5-5.0); Alkaline Phosphatase 69 U/L (38-126); Amylase 43 U/L (30-110); Anion Gap 9 mmol/L; Blood Urea Nitrogen 13 mg/dL (7-17); Calcium 9.5 mg/dL (8.4-10.2); Carbon Dioxide 27 mmol/L (22-30); Chloride 99 mmol/L (98-107); Glucose 369 mg/dL (74-99); Lipase 156 U/L (23-300); Potassium 4.8 mmol/L (3.5-5.1); Sodium 135 mmol/L (137-145); Total Bilirubin 0.4 mg/dL (0.2-1.3); Total Protein 6.7 g/dL (6.3-8.2)
--- NOTE | 2017-11-11 23:26 | ED ---
Abdominal Pain HPI - General Chief Complaint: Abdominal Pain Stated Complaint: Abd pain Time Seen by Provider: 11/11/17 21:59 Source: patient Mode of arrival: ambulatory Limitations: no limitations - History of Present Illness Initial Comments: 42-year-old female patient presents to the emergency department today for evaluation of left-sided abdominal pain. Patient states the pain is around her umbilicus and radiates into the left flank region. Patient states that she was recently discharged from the hospital after being admitted for urinary tract infection. Patient states that she was on IV antibiotics for approximately 6 days and then discharged with oral antibiotics. States that she finished her antibiotic yesterday and then began to have the pain again today. Patient states she is having some dysuria and frequency of urination. She denies any fevers or chills. States she has been nauseated but has not vomited. Denies any diarrhea or constipation. States that her pain feels exactly like when she came in for her urinary tract infection. Patient denies any recent rash, shortness breath, chest pain, numbness, tingling, dizziness, weakness, headache , visual changes, or any other complaints. - Related Data Home Medications Medication Instructions Recorded Confirmed Albuterol Inhaler [Ventolin Hfa 1 - 2 puff INHALATION RT-Q6H PRN 06/05/17 Inhaler] Docusate [Colace] 200 mg PO QAM 09/21/17 11/11/17 Nystatin 100,000 Unit/gm Powd 100,000 units TOPICAL BID PRN 09/21/17 11/11/17 [Mycostatin Powder] Cholecalciferol (Vitamin D3) 10,000 unit PO DAILY 11/02/17 11/11/17 [Vitamin D3] Estradiol Cream [Estrace Cream 0.5 gm VAGINAL DAILY 11/02/17 11/11/17 0.01%] Ferrous Sulfate [Iron (65 MG 325 mg PO DAILY 11/02/17 11/11/17 Elemental)] Morphine Sulfate ER [Ms Contin] 15 mg PO Q12HR 11/02/17 11/11/17 Morphine Sulfate Ir [MSIR] 15 mg PO Q4H PRN 11/02/17 11/11/17 Multivitamins, Thera [Multivitamin 1 tab PO DAILY 11/02/17 11/11/17 (formulary)] glipiZIDE [Glucotrol] 10 mg PO AC-BID 11/02/17 11/11/17 valACYclovir HCL [Valtrex] 500 mg PO DAILY 11/02/17 11/11/17 HYDROmorphone [Dilaudid] 1 tab PO QID 11/11/17 11/11/17 Previous Rx's Medication Instructions Recorded ALPRAZolam [Xanax] 0.25 mg PO TID PRN #10 tab 11/06/17 Nitrofurantoin Monohyd/M-Cryst 100 mg PO Q12HR #10 cap 11/06/17 [Macrobid] Nitrofurantoin Monohyd/M-Cryst 100 mg PO Q12HR #20 cap 11/12/17 [Macrobid] Allergies Allergy/AdvReac Type Severity Reaction Status Date / Time adhesive tape Allergy Severe Rash/Hives Verified 11/11/17 21:27 Cephalosporins Allergy Rash/Hives Verified 11/11/17 21:27 cortisone [Cortisone] Allergy Anaphylaxis Verified 11/11/17 21:27 diphenhydramine HCl Allergy Anaphylaxis Verified 11/11/17 21:27 [From Benadryl] doxycycline Allergy Rash/Hives Verified 11/11/17 21:27 Penicillins Allergy Anaphylaxis Verified 11/11/17 21:27 Quinolones Allergy Rash/Hives Verified 11/11/17 21:27 Sulfa (Sulfonamide Allergy Rash/Hives Verified 11/11/17 21:27 Antibiotics) Review of Systems ROS Statement: Those systems with pertinent positive or pertinent negative responses have been documented in the HPI. ROS Other: All systems not noted in ROS Statement are negative. Past Medical History Past Medical History: Diabetes Mellitus, Fibromyalgia, Hypertension, Musculoskeletal Disorder Additional Past Medical History / Comment(s): DEGENERATIVE DISC DISEASE, hx of kidney stones, History of Any Multi-Drug Resistant Organisms: MRSA Date of last positivie culture/infection: 07/04/01 MDRO Source:: gallbladder Past Surgical History: Cholecystectomy, Hernia Repair Additional Past Surgical History / Comment(s): CATARACT SURGERY, kidney stents ; Colonoscopies, Past Anesthesia/Blood Transfusion Reactions: No Reported Reaction Past Psychological History: Anxiety Smoking Status: Never smoker Past Alcohol Use History: None Reported Past Drug Use History: None Reported - Past Family History Father Family Medical History: No Reported History Mother Family Medical History: Cancer Sister(s) Family Medical History: Cancer General Exam Limitations: no limitations General appearance: alert, in no apparent distress, other (This is a well- developed, obese adult female patient in no acute distress. Vital signs upon presentation are temperature 98.2F, pulse 94, respirations 20, blood pressure 120/87, pulse ox 96% on room air.) Eye exam: Present: normal appearance, PERRL, EOMI. Absent: scleral icterus, conjunctival injection, periorbital swelling ENT exam: Present: normal exam, normal oropharynx, mucous membranes moist Respiratory exam: Present: normal lung sounds bilaterally. Absent: respiratory distress, wheezes, rales, rhonchi, stridor Cardiovascular Exam: Present: regular rate, normal rhythm, normal heart sounds. Absent: systolic murmur, diastolic murmur, rubs, gallop, clicks GI/Abdominal exam: Present: soft, tenderness (Mild periumbilical and left lower quadrant tenderness.), normal bowel sounds. Absent: distended, guarding, rebound, rigid Back exam: Present: normal inspection. Absent: CVA tenderness (R), CVA tenderness (L) Neurological exam: Present: alert, oriented X3, CN II-XII intact Psychiatric exam: Present: normal affect, normal mood Skin exam: Present: warm, dry, intact, normal color. Absent: rash Course Vital Signs 11/11/17 11/12/17 11/12/17 21:27 00:40 01:48 Temperature 98.2 F 98.2 F 97.9 F Pulse Rate 94 69 86 Respiratory 20 18 18 Rate Blood Pressure 120/87 127/73 141/97 O2 Sat by Pulse 96 98 96 Oximetry Medical Decision Making - Medical Decision Making 42-year-old female patient presents to the emergency department today for evaluation of abdominal pain and urinary tract infection symptoms. Labs reviewed and showed a normal white blood cell count at 6.7. Elevated blood sugar at 369. Urinalysis showed a cloudy appearance with trace protein, 4+ glucose, large leukocyte esterase, 95 white blood cells, 8 squamous epithelial cells, occasional amorphous sediment, occasional bacteria, rare urine yeast. Patient's previous urine culture showed E. coli infection susceptible to Macrobid. Patient did complete Macrobid yesterday however she is ALLERGIC to many antibiotics we will restart this for a 10 day course. Urine has been sent for culture. She is instructed to follow-up with her primary care physician for recheck in 1-2 days. Return parameters discussed in detail. She verbalizes understanding and agrees with this plan. - Lab Data Result diagrams: 11/11/17 22:44 11/11/17 22:44 Lab Results 11/11/17 11/11/17 11/11/17 Range/Units 22:07 22:07 22:44 WBC (3.8-10.6) k/uL RBC (3.80-5.40) m/uL Hgb (11.4-16.0) gm/dL Hct (34.0-46.0) % MCV (80.0-100.0) fL MCH (25.0-35.0) pg MCHC (31.0-37.0) g/dL RDW (11.5-15.5) % Plt Count (150-450) k/uL Neutrophils % % Lymphocytes % % Monocytes % % Eosinophils % % Basophils % % Neutrophils # (1.3-7.7) k/uL Lymphocytes # (1.0-4.8) k/uL Monocytes # (0-1.0) k/uL Eosinophils # (0-0.7) k/uL Basophils # (0-0.2) k/uL Sodium 135 L (137-145) mmol/L Potassium 4.8 (3.5-5.1) mmol/L Chloride 99 (98-107) mmol/L Carbon Dioxide 27 (22-30) mmol/L Anion Gap 9 mmol/L BUN 13 (7-17) mg/dL Creatinine 0.60 (0.52-1.04) mg/dL Est GFR (CKD-EPI)AfAm >90 (>60 ml/min/1.73 sqM) Est GFR (CKD-EPI)NonAf >90 (>60 ml/min/1.73 sqM) Glucose 369 H (74-99) mg/dL POC Glucose (mg/dL) (75-99) mg/dL POC Glu Body And Fender Mechanic ID Plasma Lactic Acid [place] (0.7-2.0) mmol/L Calcium 9.5 (8.4-10.2) mg/dL Total Bilirubin 0.4 (0.2-1.3) mg/dL AST 21 (14-36) U/L ALT 40 (9-52) U/L Alkaline Phosphatase 69 (38-126) U/L Total Protein 6.7 (6.3-8.2) g/dL Albumin 3.7 (3.5-5.0) g/dL Amylase 43 (30-110) U/L Lipase 156 (23-300) U/L Urine Color Light Yellow Urine Appearance Cloudy H (Clear) Urine pH 6.0 (5.0-8.0) Ur Specific [place] 1.028 (1.001-1.035) Urine Protein Trace H (Negative) Urine Glucose (UA) 4+ H (Negative) Urine Ketones Negative (Negative) Urine Blood Negative (Negative) Urine Nitrite Negative (Negative) Urine Bilirubin Negative (Negative) Urine Urobilinogen <2.0 (<2.0) mg/dL Ur Leukocyte Esterase Large H (Negative) Urine RBC 2 (0-5) /hpf Urine WBC 95 H (0-5) /hpf Ur Squamous Epith Cells 8 H (0-4) /hpf Amorphous Sediment Occasional H (None) /hpf Urine Bacteria Occasional H (None) /hpf Urine Yeast (Budding) Rare H (None) /hpf Urine HCG, Qual Not Detected (Not Detectd) 11/11/17 11/11/17 11/12/17 Range/Units 22:44 22:44 00:16 WBC 6.7 (3.8-10.6) k/uL RBC 5.29 (3.80-5.40) m/uL Hgb 15.0 (11.4-16.0) gm/dL Hct 45.2 (34.0-46.0) % MCV 85.5 (80.0-100.0) fL MCH 28.3 (25.0-35.0) pg MCHC 33.2 (31.0-37.0) g/dL RDW 13.4 (11.5-15.5) % Plt Count 252 (150-450) k/uL Neutrophils % 63 % Lymphocytes % 28 % Monocytes % 7 % Eosinophils % 0 % Basophils % 1 % Neutrophils # 4.2 (1.3-7.7) k/uL Lymphocytes # 1.9 (1.0-4.8) k/uL Monocytes # 0.5 (0-1.0) k/uL Eosinophils # 0.0 (0-0.7) k/uL Basophils # 0.1 (0-0.2) k/uL Sodium (137-145) mmol/L Potassium (3.5-5.1) mmol/L Chloride (98-107) mmol/L Carbon Dioxide (22-30) mmol/L Anion Gap mmol/L BUN (7-17) mg/dL Creatinine (0.52-1.04) mg/dL Est GFR (CKD-EPI)AfAm (>60 ml/min/1.73 sqM) Est GFR (CKD-EPI)NonAf (>60 ml/min/1.73 sqM) Glucose (74-99) mg/dL POC Glucose (mg/dL) 326 H (75-99) mg/dL POC Glu Body And Fender Mechanic ID Laura Lara Plasma Lactic Acid [place] 1.0 (0.7-2.0) mmol/L Calcium (8.4-10.2) mg/dL Total Bilirubin (0.2-1.3) mg/dL AST (14-36) U/L ALT (9-52) U/L Alkaline Phosphatase (38-126) U/L Total Protein (6.3-8.2) g/dL Albumin (3.5-5.0) g/dL Amylase (30-110) U/L Lipase (23-300) U/L Urine Color Urine Appearance (Clear) Urine pH (5.0-8.0) Ur Specific [place] (1.001-1.035) Urine Protein (Negative) Urine Glucose (UA) (Negative) Urine Ketones (Negative) Urine Blood (Negative) Urine Nitrite (Negative) Urine Bilirubin (Negative) Urine Urobilinogen (<2.0) mg/dL Ur Leukocyte Esterase (Negative) Urine RBC (0-5) /hpf Urine WBC (0-5) /hpf Ur Squamous Epith Cells (0-4) /hpf Amorphous Sediment (None) /hpf Urine Bacteria (None) /hpf Urine Yeast (Budding) (None) /hpf Urine HCG, Qual (Not Detectd) 11/12/17 Range/Units 01:30 WBC (3.8-10.6) k/uL RBC (3.80-5.40) m/uL Hgb (11.4-16.0) gm/dL Hct (34.0-46.0) % MCV (80.0-100.0) fL MCH (25.0-35.0) pg MCHC (31.0-37.0) g/dL RDW (11.5-15.5) % Plt Count (150-450) k/uL Neutrophils % % Lymphocytes % % Monocytes % % Eosinophils % % Basophils % % Neutrophils # (1.3-7.7) k/uL Lymphocytes # (1.0-4.8) k/uL Monocytes # (0-1.0) k/uL Eosinophils # (0-0.7) k/uL Basophils # (0-0.2) k/uL Sodium (137-145) mmol/L Potassium (3.5-5.1) mmol/L Chloride (98-107) mmol/L Carbon Dioxide (22-30) mmol/L Anion Gap mmol/L BUN (7-17) mg/dL Creatinine (0.52-1.04) mg/dL Est GFR (CKD-EPI)AfAm (>60 ml/min/1.73 sqM) Est GFR (CKD-EPI)NonAf (>60 ml/min/1.73 sqM) Glucose (74-99) mg/dL POC Glucose (mg/dL) 306 H (75-99) mg/dL POC Glu Body And Fender Mechanic ID Laura Lara Plasma Lactic Acid Oliverio (0.7-2.0) mmol/L Calcium (8.4-10.2) mg/dL Total Bilirubin (0.2-1.3) mg/dL AST (14-36) U/L ALT (9-52) U/L Alkaline Phosphatase (38-126) U/L Total Protein (6.3-8.2) g/dL Albumin (3.5-5.0) g/dL Amylase (30-110) U/L Lipase (23-300) U/L Urine Color Urine Appearance (Clear) Urine pH (5.0-8.0) Ur Specific [place] (1.001-1.035) Urine Protein (Negative) Urine Glucose (UA) (Negative) Urine Ketones (Negative) Urine Blood (Negative) Urine Nitrite (Negative) Urine Bilirubin (Negative) Urine Urobilinogen (<2.0) mg/dL Ur Leukocyte Esterase (Negative) Urine RBC (0-5) /hpf Urine WBC (0-5) /hpf Ur Squamous Epith Cells (0-4) /hpf Amorphous Sediment (None) /hpf Urine Bacteria (None) /hpf Urine Yeast (Budding) (None) /hpf Urine HCG, Qual (Not Detectd) - Radiology Data Radiology results: report reviewed, image reviewed Two-view x-ray of the abdomen shows no sign of intestinal structure pneumoperitoneum. Fecal pattern is normal. There is no pathologic calcifications. Lung bases are clear. Impression by Dr. Chinchilla shows nonacute abdomen. Cholecystectomy noted. Disposition Clinical Impression: Urinary tract infection Disposition: HOME SELF-CARE Condition: Good Instructions: Urinary Tract Infection in Women (ED) Additional Instructions: Increase fluids. Follow-up with your primary care physician for recheck as soon as possible. Return here immediately for any new, worsening, or concerning symptoms. Prescriptions: Nitrofurantoin Monohyd/M-Cryst [Macrobid] 100 mg PO Q12HR #20 cap Is patient prescribed a controlled substance at d/c from ED?: No Referrals: Marleny Farrell DO [Primary Care Provider] - 1-2 days Time of Disposition: 01:34
[2017-11-12] MEDS ORDERED: MORPHINE SULFATE 2 MG/ML SYRINGE IVP STA (00:03)
[2017-11-12] MEDS ORDERED: INSULIN ASPART 100 UNIT/ML 1 ML 10 ML VIAL SQ STA (00:04)
[2017-11-12 00:18] LABS: Glucose,Whole Blood 326 mg/dL (75-99)
[2017-11-12 00:40] VITALS: RESP 18
--- NOTE | 2017-11-12 00:55 | XR ---
EXAMINATION TYPE: XR KUB DATE OF EXAM: 11/12/2017 COMPARISON: 11/01/2017 HISTORY: Left lower quadrant pain TECHNIQUE: 2 views FINDINGS: 2 upright views of the abdomen were obtained and show no sign of intestinal obstruction or pneumoperitoneum. Fecal pattern is normal. There are no pathologic calcifications. Lung bases are livier ar. IMPRESSION: Nonacute abdomen. Cholecystectomy noted.
[2017-11-12 01:32] LABS: Glucose,Whole Blood 306 mg/dL (75-99)
[2017-11-12 01:50] VITALS: BP 141/97; PULSE 86; TEMP 97.9
== END 2017-11-12 01:50 | disposition home or self-care (01) ==
LOC: EC 20:28
DX: N39.0 Urinary tract infection, site not specified (principal); E11.65 Type 2 diabetes mellitus with hyperglycemia; E66.9 Obesity, unspecified; Z79.84 Long term (current) use of oral hypoglycemic drugs; Z79.891 Long term (current) use of opiate analgesic; Z79.899 Other long term (current) drug therapy; Z88.0 Allergy status to penicillin; Z88.1 Allergy status to other antibiotic agents; Z88.2 Allergy status to sulfonamides; Z88.8 Allergy status to other drugs, medicaments and biological substances; Z91.09 Other allergy status, other than to drugs and biological substances; Z86.14 Personal history of Methicillin resistant Staphylococcus aureus infection; Z87.39 Personal history of other diseases of the musculoskeletal system and connective tissue; Z90.49 Acquired absence of other specified parts of digestive tract; Z68.38 Body mass index [BMI] 38.0-38.9, adult; Z96.0 Presence of urogenital implants
CPT/HCPCS: 36415 ×2; 80053; 82150; 83605; 83690; 85025; 81001; 81025; 87040; 87086; 74018; 99284; 96374; 96375; 96361; J1885; J2270

== ENCOUNTER 2017-11-16 19:27 | Observation (INO) | payer OTHER ==
[2017-11-16 21:30] LABS: Appearance,Urine Cloudy (Clear); Bilirubin,Urine Negative (Negative); Blood,Urine Trace (Negative); Budding Yeast,Urine Occasional /hpf; Color,Urine Yellow; Glucose,Urine (UA) 4+ (Negative); Ketones,Urine Negative (Negative); Leukocyte Esterase,Urine Large (Negative); Mucus,Urine Rare /hpf; Nitrite,Urine Negative (Negative); Protein,Urine 1+ (Negative); RBC,Urine 158 /hpf (0-5); Specific Gravity,Urine 1.031 (1.001-1.035); Squamous Epithelial Cell,Urine 10 /hpf (0-4); Urobilinogen,Urine <2.0 mg/dL (<2.0); WBC,Urine 21 /hpf (0-5)
--- NOTE | 2017-11-16 21:40 | ED ---
Abdominal Pain HPI - General Chief Complaint: Abdominal Pain Stated Complaint: Dr Sent/UTI Time Seen by Provider: 11/16/17 20:54 Source: patient Mode of arrival: ambulatory Limitations: no limitations - History of Present Illness Initial Comments: This patient is 42-year-old woman with history of previous urinary tract infection, being treated with Macrobid. She comes to be evaluated for suspected failure of treatment. The patient states that she had been admitted in the hospital nearly 2 weeks ago for urinary tract infection. She states that she received gentamicin and was improving and was discharged with Macrobid to take. She states that she has completed over a week of the Macrobid and it seems the symptoms are returning. She describes urinary frequency, dysuria and low abdominal pain. MD Complaint: abdominal pain -: days(s) Location: suprapubic Radiation: none Migration to: no migration Severity: moderate Quality: cramping Consistency: constant Improves With: nothing Worsens With: other (Urination) Associated Symptoms: dysuria, hematuria, other (Frequency) Treatments Prior to Arrival: other (Macrobid) - Related Data Home Medications Medication Instructions Recorded Confirmed Ferrous Sulfate [Iron (65 MG 325 mg PO DAILY 11/02/17 11/16/17 Elemental)] Morphine Sulfate ER [Ms Contin] 15 mg PO Q12HR 11/02/17 11/16/17 Multivitamins, Thera [Multivitamin 1 tab PO DAILY 11/02/17 11/16/17 (formulary)] glipiZIDE [Glucotrol] 10 mg PO AC-BID 11/02/17 11/16/17 valACYclovir HCL [Valtrex] 500 mg PO DAILY 11/02/17 11/16/17 HYDROmorphone [Dilaudid] 4 mg PO QID 11/11/17 11/16/17 Sennosides [Senna] 17.4 mg PO DAILY 11/16/17 11/17/17 ALPRAZolam [Xanax] 0.25 mg PO TID 11/17/17 11/17/17 Allergies Allergy/AdvReac Type Severity Reaction Status Date / Time adhesive tape Allergy Severe Rash/Hives Verified 11/16/17 20:48 cortisone [Cortisone] Allergy Severe Anaphylaxis Verified 11/17/17 03:26 diphenhydramine HCl Allergy Severe Anaphylaxis Verified 07/06/18 03:26 [From Benadryl] Penicillins Allergy Severe Anaphylaxis Verified 11/17/17 03:26 Sulfa (Sulfonamide Allergy Intermediate Rash/Hives Verified 11/17/17 03:26 Antibiotics) Cephalosporins Allergy Mild Rash/Hives Verified 11/17/17 03:26 doxycycline Allergy Mild Rash/Hives Verified 11/17/17 03:26 Quinolones Allergy Mild Rash/Hives Verified 11/17/17 03:26 Review of Systems ROS Statement: Those systems with pertinent positive or pertinent negative responses have been documented in the HPI. ROS Other: All systems not noted in ROS Statement are negative. Past Medical History Past Medical History: Diabetes Mellitus, Fibromyalgia, Hypertension, Musculoskeletal Disorder Additional Past Medical History / Comment(s): DEGENERATIVE DISC DISEASE, hx of kidney stones, History of Any Multi-Drug Resistant Organisms: MRSA Date of last positivie culture/infection: 07/04/01 MDRO Source:: gallbladder Past Surgical History: Cholecystectomy, Hernia Repair Additional Past Surgical History / Comment(s): CATARACT SURGERY, kidney stents ; Colonoscopies, Past Anesthesia/Blood Transfusion Reactions: No Reported Reaction Past Psychological History: Anxiety Smoking Status: Never smoker Past Alcohol Use History: None Reported Past Drug Use History: None Reported - Past Family History Father Family Medical History: No Reported History Mother Family Medical History: Cancer Sister(s) Family Medical History: Cancer General Exam Limitations: no limitations Course Vital Signs 11/16/17 11/16/17 11/16/17 19:50 21:22 22:04 Temperature 97.9 F Pulse Rate 98 Respiratory 18 18 16 Rate Blood Pressure 143/90 O2 Sat by Pulse 96 Oximetry 11/17/17 11/17/17 00:00 02:30 Temperature 97.7 F Pulse Rate 88 91 Respiratory 20 18 Rate Blood Pressure 120/79 O2 Sat by Pulse 98 96 Oximetry Medical Decision Making - Medical Decision Making Patient is a 42-year-old woman with urinary tract infection and she does appear to be having treatment failure. Her symptoms are worsening and there are white blood cells in the urine despite her taking outpatient treatment. Given her multiple antibiotic ALLERGIES, will admit the patient to have IV antibiotics. - Lab Data Result diagrams: 11/16/17 22:00 11/16/17 22:00 Lab Results 11/16/17 11/16/17 11/16/17 Range/Units 21:15 21:15 22:00 WBC (3.8-10.6) k/uL RBC (3.80-5.40) m/uL Hgb (11.4-16.0) gm/dL Hct (34.0-46.0) % MCV (80.0-100.0) fL MCH (25.0-35.0) pg MCHC (31.0-37.0) g/dL RDW (11.5-15.5) % Plt Count (150-450) k/uL Neutrophils % % Lymphocytes % % Monocytes % % Eosinophils % % Basophils % % Neutrophils # (1.3-7.7) k/uL Lymphocytes # (1.0-4.8) k/uL Monocytes # (0-1.0) k/uL Eosinophils # (0-0.7) k/uL Basophils # (0-0.2) k/uL Sodium 138 (137-145) mmol/L Potassium 4.6 (3.5-5.1) mmol/L Chloride 101 (98-107) mmol/L Carbon Dioxide 23 (22-30) mmol/L Anion Gap 14 mmol/L BUN 14 (7-17) mg/dL Creatinine 0.60 (0.52-1.04) mg/dL Est GFR (CKD-EPI)AfAm >90 (>60 ml/min/1.73 sqM) Est GFR (CKD-EPI)NonAf >90 (>60 ml/min/1.73 sqM) Glucose 324 H (74-99) mg/dL Calcium 9.9 (8.4-10.2) mg/dL Total Bilirubin 0.6 (0.2-1.3) mg/dL AST 27 (14-36) U/L ALT 40 (9-52) U/L Alkaline Phosphatase 64 (38-126) U/L C-Reactive Protein 12.2 H (<10.0) mg/L Total Protein 7.3 (6.3-8.2) g/dL Albumin 4.0 (3.5-5.0) g/dL Amylase 48 (30-110) U/L Lipase 141 (23-300) U/L Urine Color Yellow Urine Appearance Cloudy H (Clear) Urine pH 5.0 (5.0-8.0) Ur Specific [place] 1.031 (1.001-1.035) Urine Protein 1+ H (Negative) Urine Glucose (UA) 4+ H (Negative) Urine Ketones Negative (Negative) Urine Blood Trace H (Negative) Urine Nitrite Negative (Negative) Urine Bilirubin Negative (Negative) Urine Urobilinogen <2.0 (<2.0) mg/dL Ur Leukocyte Esterase Large H (Negative) Urine RBC 158 H (0-5) /hpf Urine WBC 21 H (0-5) /hpf Ur Squamous Epith Cells 10 H (0-4) /hpf Hyaline Casts (0-2) /lpf Urine Mucus Rare H (None) /hpf Urine Yeast (Budding) Occasional H (None) /hpf Urine HCG, Qual Not Detected (Not Detectd) 11/16/17 11/17/17 Range/Units 22:00 00:20 WBC 8.1 (3.8-10.6) k/uL RBC 5.65 H (3.80-5.40) m/uL Hgb 16.0 (11.4-16.0) gm/dL Hct 48.1 H (34.0-46.0) % MCV 85.1 (80.0-100.0) fL MCH 28.4 (25.0-35.0) pg MCHC 33.3 (31.0-37.0) g/dL RDW 13.7 (11.5-15.5) % Plt Count 231 (150-450) k/uL Neutrophils % 68 % Lymphocytes % 25 % Monocytes % 5 % Eosinophils % 1 % Basophils % 0 % Neutrophils # 5.5 (1.3-7.7) k/uL Lymphocytes # 2.0 (1.0-4.8) k/uL Monocytes # 0.4 (0-1.0) k/uL Eosinophils # 0.1 (0-0.7) k/uL Basophils # 0.0 (0-0.2) k/uL Sodium (137-145) mmol/L Potassium (3.5-5.1) mmol/L Chloride (98-107) mmol/L Carbon Dioxide (22-30) mmol/L Anion Gap mmol/L BUN (7-17) mg/dL Creatinine (0.52-1.04) mg/dL Est GFR (CKD-EPI)AfAm (>60 ml/min/1.73 sqM) Est GFR (CKD-EPI)NonAf (>60 ml/min/1.73 sqM) Glucose (74-99) mg/dL Calcium (8.4-10.2) mg/dL Total Bilirubin (0.2-1.3) mg/dL AST (14-36) U/L ALT (9-52) U/L Alkaline Phosphatase (38-126) U/L C-Reactive Protein (<10.0) mg/L Total Protein (6.3-8.2) g/dL Albumin (3.5-5.0) g/dL Amylase (30-110) U/L Lipase (23-300) U/L Urine Color Yellow Urine Appearance Cloudy H (Clear) Urine pH 5.5 (5.0-8.0) Ur Specific [place] 1.032 (1.001-1.035) Urine Protein 2+ H (Negative) Urine Glucose (UA) 4+ H (Negative) Urine Ketones Trace H (Negative) Urine Blood Moderate H (Negative) Urine Nitrite Negative (Negative) Urine Bilirubin Negative (Negative) Urine Urobilinogen 2.0 (<2.0) mg/dL Ur Leukocyte Esterase Negative (Negative) Urine RBC 2 (0-5) /hpf Urine WBC 19 H (0-5) /hpf Ur Squamous Epith Cells 2 (0-4) /hpf Hyaline Casts 14 H (0-2) /lpf Urine Mucus Many H (None) /hpf Urine Yeast (Budding) (None) /hpf Urine HCG, Qual (Not Detectd) Disposition Clinical Impression: Urinary tract infection, Failure of outpatient treatment Disposition: ADMITTED IP TO THIS HOSP Condition: Fair
[2017-11-16 22:10] LABS: Basophils % (A) 0 %; Eosinophils # (A) 0.1 k/uL (0-0.7); Eosinophils % (A) 1 %; HCT 48.1 % (34.0-46.0); Lymphocytes % (A) 25 %; MCH 28.4 pg (25.0-35.0); MCHC 33.3 g/dL (31.0-37.0); MCV 85.1 fL (80.0-100.0); Mean Platelet Volume 7.7; Monocytes # (A) 0.4 k/uL (0-1.0); Monocytes % (A) 5 %; Neutrophils # (A) 5.5 k/uL (1.3-7.7); Neutrophils % (A) 68 %; Platelet Count 231 k/uL (150-450); RBC 5.65 m/uL (3.80-5.40); RDW 13.7 % (11.5-15.5); WBC 8.1 k/uL (3.8-10.6)
[2017-11-16 22:27] LABS: ALT 40 U/L (9-52); AST 27 U/L (14-36); Alkaline Phosphatase 64 U/L (38-126); Amylase 48 U/L (30-110); Anion Gap 14 mmol/L; Blood Urea Nitrogen 14 mg/dL (7-17); C Reactive Protein 12.2 mg/L (<10.0); Calcium 9.9 mg/dL (8.4-10.2); Carbon Dioxide 23 mmol/L (22-30); Chloride 101 mmol/L (98-107); Glucose 324 mg/dL (74-99); Lipase 141 U/L (23-300); Potassium 4.6 mmol/L (3.5-5.1); Sodium 138 mmol/L (137-145); Total Bilirubin 0.6 mg/dL (0.2-1.3); Total Protein 7.3 g/dL (6.3-8.2)
[2017-11-17 00:38] LABS: Appearance,Urine Cloudy (Clear); Bilirubin,Urine Negative (Negative); Blood,Urine Moderate (Negative); Color,Urine Yellow; Glucose,Urine (UA) 4+ (Negative); Hyaline Casts,Urine 14 /lpf (0-2); Ketones,Urine Trace (Negative); Leukocyte Esterase,Urine Negative (Negative); Mucus,Urine Many /hpf; Nitrite,Urine Negative (Negative); PH, Urine 5.5 (5.0-8.0); Protein,Urine 2+ (Negative); RBC,Urine 2 /hpf (0-5); Specific Gravity,Urine 1.032 (1.001-1.035); Squamous Epithelial Cell,Urine 2 /hpf (0-4); WBC,Urine 19 /hpf (0-5)
[2017-11-17] MEDS ORDERED: ACETAMINOPHEN TAB 325 MG TAB PO PRN (01:40)
[2017-11-17] MEDS ORDERED: NALOXONE 0.4 MG/ML 1 ML VIAL IV PRN (01:40)
[2017-11-17] MEDS ORDERED: ONDANSETRON 4 MG/2 ML VIAL IVP PRN (01:40)
[2017-11-17] MEDS ORDERED: GENTAMICIN PER PHARMACY MISCELLANE SCH (01:45)
[2017-11-17] MEDS ORDERED: GENTAMICIN 480 MG in SODIUM CHLORIDE 0.9% 100 ML IVPB ONE (02:30)
[2017-11-17] MEDS: SODIUM CHLORIDE 0.9% 1,000 ML IV SCH (02:40)
[2017-11-17] MEDS: MORPHINE SULFATE ER 15 MG TABLET PO SCH ×2 (04:14→16:09)
[2017-11-17] MEDS: glipiZIDE 10 MG TAB PO SCH ×2 (06:54→17:16)
[2017-11-17] MEDS ORDERED: MORPHINE SULFATE ER 15 MG TABLET PO SCH (09:00)
[2017-11-17] MEDS ORDERED: SENNOSIDES 8.6 MG TAB PO SCH (09:00)
[2017-11-17] MEDS: FERROUS SULFATE 325 MG TAB PO SCH (09:58)
[2017-11-17] MEDS: SENNOSIDES 8.6 MG TAB PO SCH (09:59)
[2017-11-17] MEDS: ALPRAZolam 0.25 MG TAB PO SCH ×3 (10:00→22:09)
[2017-11-17] MEDS: valACYclovir 500 MG TAB PO SCH (10:00)
[2017-11-17] MEDS: HYDROmorphone 4 MG TABLET PO SCH ×4 (10:09→21:03)
[2017-11-17] MEDS: MULTIVITAMINS, THERA 1 EACH TAB PO SCH (12:22)
--- NOTE | 2017-11-17 12:31 | P.GSCN ---
History of Present Illness Consult date: 11/17/17 Reason for Consult: Abdominal pain History of present illness: 42-year-old female being seen at the request of the attending for surgical eval for abdominal pain that has persist patient states that she was seen this Monday in Dr. Alejo office in a follow-up visit. stated at that time she had abdominal pain but the pain has gotten more symptomatic. Patient points to the mid abdomen is to the reference point. Patient states that she's been having chronic constant abdominal pain it's achy sensation. Patient states that she just completed a two-week course of antibiotic was being treated for urinary tract infection on Macrobid. Patient states she still has urinary frequency with lower abdominal pain and burning on urination at times urine culture is pending Patient is a poor historian has poor recall. Patient states that she has constant discomfort in the abdomen described as an achy feeling across the abdominal wall Patient was just seen on consultation by surgical service on November 02 for abdominal pain At that time patient was being seen for left lower quadrant pain radiating up to the umbilical area. Had a recent colonoscopy and an EGD done on October 23 reviewing the report scattered diverticulosis polyp at the descending colon and internal hemorrhoids grade 1 colitis EGD report indicated gastritis diaphragmatic hiatal hernia without obstruction Computed tomography scan abdomen pelvis with contrast that was done November 02 reviewing the report the appendix were normal pancreas normal negative computed tomography scan no imaging done in the emergency room this visit Labs C-reactive protein did note the low glucoses elevated 324- Review of Systems Essentially unremarkable except as mentioned in the present illness Past Medical History Past Medical History: Diabetes Mellitus, Fibromyalgia, Hypertension, Musculoskeletal Disorder Additional Past Medical History / Comment(s): DEGENERATIVE DISC DISEASE, hx of kidney stones, History of Any Multi-Drug Resistant Organisms: MRSA Year Discovered:: 07/04/01 MDRO Source:: gallbladder Past Surgical History: Cholecystectomy, Hernia Repair Additional Past Surgical History / Comment(s): CATARACT SURGERY, kidney stents ; Colonoscopies, Past Anesthesia/Blood Transfusion Reactions: No Reported Reaction Past Psychological History: Anxiety Smoking Status: Never smoker Past Alcohol Use History: None Reported Past Drug Use History: None Reported - Past Family History Father Family Medical History: No Reported History Mother Family Medical History: Cancer Sister(s) Family Medical History: Cancer Medications and Allergies Home Medications Medication Instructions Recorded Confirmed Type Ferrous Sulfate [Iron (65 MG 325 mg PO DAILY 11/02/17 11/16/17 History Elemental)] Morphine Sulfate ER [Ms Contin] 15 mg PO Q12HR 11/02/17 11/16/17 History Multivitamins, Thera [Multivitamin 1 tab PO DAILY 11/02/17 11/16/17 History (formulary)] glipiZIDE [Glucotrol] 10 mg PO AC-BID 11/02/17 11/16/17 History valACYclovir HCL [Valtrex] 500 mg PO DAILY 11/02/17 11/16/17 History HYDROmorphone [Dilaudid] 4 mg PO QID 11/11/17 11/16/17 History Sennosides [Senna] 17.4 mg PO DAILY 11/16/17 11/17/17 History ALPRAZolam [Xanax] 0.25 mg PO TID 11/17/17 11/17/17 History Allergies Allergy/AdvReac Type Severity Reaction Status Date / Time adhesive tape Allergy Severe Rash/Hives Verified 11/16/17 20:48 cortisone [Cortisone] Allergy Severe Anaphylaxis Verified 11/17/17 03:26 diphenhydramine HCl Allergy Severe Anaphylaxis Verified 11/17/17 03:26 [From Benadryl] Penicillins Allergy Severe Anaphylaxis Verified 11/17/17 03:26 Sulfa (Sulfonamide Allergy Intermediate Rash/Hives Verified 11/17/17 03:26 Antibiotics) Cephalosporins Allergy Mild Rash/Hives Verified 11/17/17 03:26 doxycycline Allergy Mild Rash/Hives Verified 11/17/17 03:26 Quinolones Allergy Mild Rash/Hives Verified 11/17/17 03:26 Iodine and Iodide Containing Allergy Unknown Verified 11/17/17 13:48 Produc Surgical - Exam Vital Signs Temp Pulse Resp BP Pulse Ox 97.9 F 98 18 143/90 96 11/16/17 19:50 11/16/17 19:50 11/16/17 19:50 11/16/17 19:50 11/16/17 19:50 GENERAL APPEARANCE: Obese 42-year-old female sitting up in bed talkative in no acute distress. VITAL SIGNS: Reviewed HEENT: Head is normocephalic and atraumatic. Pupils are equal and reactive. The nares are patent. Oropharynx is clear without lesions. NECK: Supple without lymphadenopathy. Traches midline. HEART: S1, S2. Regular rate and rhythm. No murmur noted LUNGS: No crackles or wheezes are heard. Adequate air movement on room air ABDOMEN: Soft, obese nontender, nondistended with good bowel sounds. No peritoneal signs. No palpable organomegaly or masses. Purple ecchymotic bruise noted left lower quadrant EXTREMITIES: Normal skin color and turgor. No cyanosis, rash, ulceration, clubbing or edema. Radial pedal pulses are 2/4 bilaterally. NEUROLOGICAL: No focal deficits. Strength and sensation are grossly intact. Results - Labs 11/16/17 22:00 11/16/17 22:00 Abnormal Lab Results - Last 24 Hours (Table) 11/16/17 11/16/17 11/16/17 Range/Units 21:15 22:00 22:00 RBC 5.65 H (3.80-5.40) m/uL Hct 48.1 H (34.0-46.0) % Glucose 324 H (74-99) mg/dL C-Reactive Protein 12.2 H (<10.0) mg/L Urine Appearance Cloudy H (Clear) Urine Protein 1+ H (Negative) Urine Glucose (UA) 4+ H (Negative) Urine Ketones (Negative) Urine Blood Trace H (Negative) Ur Leukocyte Esterase Large H (Negative) Urine RBC 158 H (0-5) /hpf Urine WBC 21 H (0-5) /hpf Ur Squamous Epith Cells 10 H (0-4) /hpf Hyaline Casts (0-2) /lpf Urine Mucus Rare H (None) /hpf Urine Yeast (Budding) Occasional H (None) /hpf 11/17/17 Range/Units 00:20 RBC (3.80-5.40) m/uL Hct (34.0-46.0) % Glucose (74-99) mg/dL C-Reactive Protein (<10.0) mg/L Urine Appearance Cloudy H (Clear) Urine Protein 2+ H (Negative) Urine Glucose (UA) 4+ H (Negative) Urine Ketones Trace H (Negative) Urine Blood Moderate H (Negative) Ur Leukocyte Esterase (Negative) Urine RBC (0-5) /hpf Urine WBC 19 H (0-5) /hpf Ur Squamous Epith Cells (0-4) /hpf Hyaline Casts 14 H (0-2) /lpf Urine Mucus Many H (None) /hpf Urine Yeast (Budding) (None) /hpf Microbiology - Last 24 Hours (Table) 11/16/17 21:15 Urine Culture - Preliminary Urine,Voided Diabetes panel 11/16/17 Range/Units 22:00 Sodium 138 (137-145) mmol/L Potassium 4.6 (3.5-5.1) mmol/L Chloride 101 (98-107) mmol/L Carbon Dioxide 23 (22-30) mmol/L BUN 14 (7-17) mg/dL Creatinine 0.60 (0.52-1.04) mg/dL Glucose 324 H (74-99) mg/dL Calcium 9.9 (8.4-10.2) mg/dL AST 27 (14-36) U/L ALT 40 (9-52) U/L Alkaline Phosphatase 64 (38-126) U/L Total Protein 7.3 (6.3-8.2) g/dL Albumin 4.0 (3.5-5.0) g/dL Calcium panel 11/16/17 Range/Units 22:00 Calcium 9.9 (8.4-10.2) mg/dL Albumin 4.0 (3.5-5.0) g/dL Pituitary panel 11/16/17 Range/Units 22:00 Sodium 138 (137-145) mmol/L Potassium 4.6 (3.5-5.1) mmol/L Chloride 101 (98-107) mmol/L Carbon Dioxide 23 (22-30) mmol/L BUN 14 (7-17) mg/dL Creatinine 0.60 (0.52-1.04) mg/dL Glucose 324 H (74-99) mg/dL Calcium 9.9 (8.4-10.2) mg/dL Adrenal panel 11/16/17 Range/Units 22:00 Sodium 138 (137-145) mmol/L Potassium 4.6 (3.5-5.1) mmol/L Chloride 101 (98-107) mmol/L Carbon Dioxide 23 (22-30) mmol/L BUN 14 (7-17) mg/dL Creatinine 0.60 (0.52-1.04) mg/dL Glucose 324 H (74-99) mg/dL Calcium 9.9 (8.4-10.2) mg/dL Total Bilirubin 0.6 (0.2-1.3) mg/dL AST 27 (14-36) U/L ALT 40 (9-52) U/L Alkaline Phosphatase 64 (38-126) U/L Total Protein 7.3 (6.3-8.2) g/dL Albumin 4.0 (3.5-5.0) g/dL Assessment and Plan Assessment: Impression Present on admission abdominal pain suspect due to UTI failed outpatient treatment Multiple antibiotic ALLERGIES Morbid obesity BMI 44 Type 2 diabetes uncontrolled with episodes of hyperglycemia elevated hemoglobin A1c of 11.7 November 01 Recent EGD showed superficial gastritis no active duodenitis done on October 23 Colonoscopy done October 23 showed internal hemorrhoid scattered diverticulosis throughout the colon no colitis Chronic pain with opiate dependency Anxiety depressive disorder Esophageal reflex chronic Plan No evidence of an acute surgical abdomen at this time Defer to the attending to address medical issues Agree with IV antibiotics for UTI treatment Recommending improving glycemic control DVT and GI prophylaxis Will follow with you Would not recommend repeating a CAT scan of the abdomen pelvis with contrast at this time. Patient was educated by Dr. Alejo of the risk of being repeatedly exposed to radiation from having frequent CAT scan imaging done. Would recommend infectious disease to address antibiotics failed outpatient antibiotic treatment persistent UTIs Surgical consultation note dictated for Dr. Alejo The above impression and plan of care have been discussed and directed by signing physician. Cinthya Gaffney nurse practitioner acting as scribe for signing physician.
[2017-11-17] MEDS ORDERED: IOPAMIDOL-300 CONTRAST 30 ML VIAL (ORAL USE) PO PRN (13:14)
--- NOTE | 2017-11-17 13:20 | P.HPIM ---
History of Present Illness 5-year-old female came in with the complaints of abdominal pain sharp in nature in the left lower as well as right lower abdominal and nicotine and has been going on for 2 weeks progressively gotten worse and patient was recently treated for urinary tract infection with Macrobid patient has multiple ALLERGIES. Patient has minimally abnormal urine him unsure whether patient has UTI are not patient did have leukocytosis complains of some subjective fevers at home. Patient was extensively evaluated in the past with a colonoscopy EGD which is significant for gastritis and hiatal hernia beyond which nothing much was appreciated. CAT scans were obtain in the past multiple of them in the past. I'm unsure whether her abdominal pain is secondary to urinary tract infection patient's pain is not in the suprapubic area it's in the right and left lower quadrants sharp in nature. I'll get a surgical opinion before I do another CAT scan to avoid radiation. Patient was well-known to Dr. Norman. Other possible etiologies being diverticulitis and nephrolithiasis. Patient denied any nausea vomiting diarrhea Review of Systems REVIEW OF SYSTEMS: CONSTITUTIONAL: No fever, no malaise, no fatigue. HEENT: No recent visual problems or hearing problems. Denied any sore throat. CARDIOVASCULAR: No chest pain, orthopnea, PND, no palpitations, no syncope. PULMONARY: No shortness of breath, no cough, no hemoptysis. GASTROINTESTINAL: No diarrhea, no nausea, no vomiting, . Normoactive bowel sounds. NEUROLOGICAL: No headaches, no weakness, no numbness. HEMATOLOGICAL: Denies any bleeding or petechiae. GENITOURINARY: Denies any burning micturition, frequency, or urgency. MUSCULOSKELETAL/RHEUMATOLOGICAL: Denies any joint pain, swelling, or any muscle pain. ENDOCRINE: Denies any polyuria or polydipsia. The rest of the 14-point review of systems is negative. Past Medical History Past Medical History: Diabetes Mellitus, Fibromyalgia, Hypertension, Musculoskeletal Disorder Additional Past Medical History / Comment(s): DEGENERATIVE DISC DISEASE, hx of kidney stones, History of Any Multi-Drug Resistant Organisms: MRSA Date of last positivie culture/infection: 07/04/01 MDRO Source:: gallbladder Past Surgical History: Cholecystectomy, Hernia Repair Additional Past Surgical History / Comment(s): CATARACT SURGERY, kidney stents ; Colonoscopies, Past Anesthesia/Blood Transfusion Reactions: No Reported Reaction Past Psychological History: Anxiety Smoking Status: Never smoker Past Alcohol Use History: None Reported Past Drug Use History: None Reported - Past Family History Father Family Medical History: No Reported History Mother Family Medical History: Cancer Sister(s) Family Medical History: Cancer Medications and Allergies Home Medications Medication Instructions Recorded Confirmed Type Ferrous Sulfate [Iron (65 MG 325 mg PO DAILY 11/02/17 11/16/17 History Elemental)] Morphine Sulfate ER [Ms Contin] 15 mg PO Q12HR 11/02/17 11/16/17 History Multivitamins, Thera [Multivitamin 1 tab PO DAILY 11/02/17 11/16/17 History (formulary)] glipiZIDE [Glucotrol] 10 mg PO AC-BID 11/02/17 11/16/17 History valACYclovir HCL [Valtrex] 500 mg PO DAILY 11/02/17 11/16/17 History HYDROmorphone [Dilaudid] 4 mg PO QID 11/11/17 11/16/17 History Sennosides [Senna] 17.4 mg PO DAILY 11/16/17 11/17/17 History ALPRAZolam [Xanax] 0.25 mg PO TID 11/17/17 11/17/17 History Allergies Allergy/AdvReac Type Severity Reaction Status Date / Time adhesive tape Allergy Severe Rash/Hives Verified 11/16/17 20:48 cortisone [Cortisone] Allergy Severe Anaphylaxis Verified 11/17/17 03:26 diphenhydramine HCl Allergy Severe Anaphylaxis Verified 11/17/17 03:26 [From Benadryl] Penicillins Allergy Severe Anaphylaxis Verified 11/17/17 03:26 Sulfa (Sulfonamide Allergy Intermediate Rash/Hives Verified 11/17/17 03:26 Antibiotics) Cephalosporins Allergy Mild Rash/Hives Verified 11/17/17 03:26 doxycycline Allergy Mild Rash/Hives Verified 11/17/17 03:26 Quinolones Allergy Mild Rash/Hives Verified 11/17/17 03:26 Physical Exam Vitals: Vital Signs Temp Pulse Pulse Resp BP BP Pulse Ox 11/17/17 08:23 98.1 F 87 16 104/72 92 L 11/17/17 03:12 90 18 11/17/17 02:30 97.7 F 91 18 120/79 96 07/06/18 00:00 88 20 98 11/16/17 22:04 16 11/16/17 21:22 18 11/16/17 19:50 97.9 F 98 18 143/90 96 Intake and Output 11/16/17 11/17/17 11/17/17 22:59 06:59 14:59 Output Total 1 Balance -1 Output: Urine 1 Other: Voiding Method Toilet Toilet Weight 129.727 kg 147.418 kg PHYSICAL EXAMINATION: GENERAL: The patient is alert and oriented x3, not in any acute distress. Well developed, well nourished. HEENT: Pupils are round and equally reacting to light. EOMI. No scleral icterus. No conjunctival pallor. Normocephalic, atraumatic. No pharyngeal erythema. No thyromegaly. CARDIOVASCULAR: S1 and S2 present. No murmurs, rubs, or gallops. PULMONARY: Chest is clear to auscultation, no wheezing or crackles. ABDOMEN: Soft, nontender, nondistended, normoactive bowel sounds. No palpable organomegaly. MUSCULOSKELETAL: No joint swelling or deformity. EXTREMITIES: No cyanosis, clubbing, or pedal edema. NEUROLOGICAL: Gross neurological examination did not reveal any focal deficits. SKIN: No rashes. Results CBC & Chem 7: 11/16/17 22:00 11/16/17 22:00 Labs: Abnormal Lab Results - Last 24 Hours (Table) 11/16/17 11/16/17 11/16/17 Range/Units 21:15 22:00 22:00 RBC 5.65 H (3.80-5.40) m/uL Hct 48.1 H (34.0-46.0) % Glucose 324 H (74-99) mg/dL C-Reactive Protein 12.2 H (<10.0) mg/L Urine Appearance Cloudy H (Clear) Urine Protein 1+ H (Negative) Urine Glucose (UA) 4+ H (Negative) Urine Ketones (Negative) Urine Blood Trace H (Negative) Ur Leukocyte Esterase Large H (Negative) Urine RBC 158 H (0-5) /hpf Urine WBC 21 H (0-5) /hpf Ur Squamous Epith Cells 10 H (0-4) /hpf Hyaline Casts (0-2) /lpf Urine Mucus Rare H (None) /hpf Urine Yeast (Budding) Occasional H (None) /hpf 11/17/17 Range/Units 00:20 RBC (3.80-5.40) m/uL Hct (34.0-46.0) % Glucose (74-99) mg/dL C-Reactive Protein (<10.0) mg/L Urine Appearance Cloudy H (Clear) Urine Protein 2+ H (Negative) Urine Glucose (UA) 4+ H (Negative) Urine Ketones Trace H (Negative) Urine Blood Moderate H (Negative) Ur Leukocyte Esterase (Negative) Urine RBC (0-5) /hpf Urine WBC 19 H (0-5) /hpf Ur Squamous Epith Cells (0-4) /hpf Hyaline Casts 14 H (0-2) /lpf Urine Mucus Many H (None) /hpf Urine Yeast (Budding) (None) /hpf Microbiology - Last 24 Hours (Table) 11/16/17 21:15 Urine Culture - Preliminary Urine,Voided Thrombosis Risk Factor Assmnt - Choose All That Apply Any of the Below Risk Factors Present?: Yes Each Factor Represents 1 point: Abnormal pulmonary function (COPD), Age 41-60 years, Obesity (BMI >25), Swollen legs (current), Varicose veins Other Risk Factors: No Thrombosis Risk Factor Assessment Total Risk Factor Score: 5 Thrombosis Risk Factor Assessment Level: High Risk Assessment and Plan Plan: -Abdominal pain : We will obtain a CAT scan of the abdomen unsure of the exact etiology can be nephrolithiasis or diverticulitis. We will obtain CAT scan of the abdomen outpatient surgical consultation. Patient was extensively evaluated in the past with a similar abdominal pain which is much worse now -Possibility of urinary tract infection multiple ALLERGIES, we'll consult the infectious disease regarding that -Type 2 diabetes mellitus: Uncontrolled blood sugars will continue with her home regimen along with the sliding scale insulin and may need insulin upon discharge. -Fibromyalgia -Hypertension -Anxiety disorder -Obesity For above-mentioned chronic medical problems patient was resumed and continued on appropriate home medications.
[2017-11-17 14:30] LABS: Basophils # (A) 0.1 k/uL (0-0.2); Basophils % (A) 1 %; Eosinophils % (A) 0 %; HCT 45.9 % (34.0-46.0); HGB 15.1 gm/dL (11.4-16.0); Lymphocytes # (A) 1.9 k/uL (1.0-4.8); Lymphocytes % (A) 28 %; MCH 28.7 pg (25.0-35.0); MCHC 32.9 g/dL (31.0-37.0); MCV 87.3 fL (80.0-100.0); Mean Platelet Volume 7.8; Monocytes # (A) 0.4 k/uL (0-1.0); Monocytes % (A) 6 %; Neutrophils # (A) 4.4 k/uL (1.3-7.7); Neutrophils % (A) 64 %; Platelet Count 211 k/uL (150-450); RBC 5.26 m/uL (3.80-5.40); RDW 13.6 % (11.5-15.5); WBC 6.9 k/uL (3.8-10.6)
[2017-11-17] MEDS: AZTREONAM 2 GM in SODIUM CHLORIDE 0.9% 100 ML IVPB SCH (16:16)
[2017-11-17 16:54] LABS: Glucose,Whole Blood 268 mg/dL (75-99)
[2017-11-17] MEDS: INSULIN ASPART 100 UNIT/ML 1 ML 10 ML VIAL SQ SCH ×2 (17:16→21:07)
[2017-11-17 21:07] LABS: Glucose,Whole Blood 296 mg/dL (75-99)
[2017-11-17 23:00] LABS: Hemoglobin A1C 11.5 % (4.0-6.0)
[2017-11-17] MEDS ORDERED: FLUCONAZOLE 100 MG TAB PO ONE (23:00)
--- NOTE | 2017-11-18 01:33 | CONS ---
CONSULTATION DATE OF SERVICE: 11/17/2017. REASON FOR CONSULTATION: Urinary tract infection history and multiple antibiotic allergy. HISTORY OF PRESENT ILLNESS: The patient is a 42-year-old female who do has a history of recurrent UTI. The patient apparently was recently admitted to this facility and was treated for a UTI with IV antibiotic therapy. Patient urine culture presently shows group B strep and apparently subsequently has been treated with oral Macrobid because of multiple antibiotic allergy. The patient is now coming to the hospital with mostly pain to the left flank area. The patient did have some frequency of urine, No significant burning. No suprapubic pain. Some nausea but no vomiting. Denies any significant fever, rigors and chills. The patient does have MULTIPLE ANTIBIOTIC ALLERGIES. On arrival to the ER, the patient has been afebrile. The patient's white count was normal. However, urine was positive. The patient did have a large leukocyte esterases with 158 RBCs, 21 WBC, occasionally bacteria. Occasional budding yeast. The patient was started on gentamicin. Infectious Disease was consulted for further recommendation of antibiotic therapy. REVIEW OF SYSTEMS: CONSTITUTIONAL: Positive for weakness. Denies any high-grade fever. Eyes no complaint. ENT no complaint. Respiratory no complaint. Cardiovascular no complaint. Genitourinary as per HPI. GASTROINTESTINAL: As per HPI. Musculoskeletal: No complaint. Integumentary: No complaint. Psychological: No complaint. Endocrine: No complaint. Neurologic no complaint. PAST MEDICAL HISTORY: Significant for recurrent urinary tract infection, diabetes mellitus, fibromyalgia, hypertension, degenerative disc disease and history of kidney stones, previous history of MRSA infection. PAST SURGICAL HISTORY: Cholecystectomy and hernia repair. SOCIAL HISTORY: Denies smoking, drinking or drug use. FAMILY HISTORY: With history of cancer though that is not documented. ALLERGIES: Include PENICILLIN, SULFA, CEPHALOSPORIN mostly with a rash. No history of anaphylaxis. MEDICATION: Medications include the patient is currently on gentamicin, Valtrex, Senokot, Zofran, Narcan, Theragran, MS Contin, NovoLog, Dilaudid, Glucotrol, iron sulfate, Xanax, Tylenol. EXAMINATION: Blood pressure is 119/85 with a pulse of 82, temperature 97.9. She is 96% on room air. General description is a middle-aged female lying in bed in no distress. No tachypnea or accessory muscles of respiration use. HEENT: Shows no pallor or scleral icterus. Oral mucosal membranes are dry. No pharyngeal erythema or thrush. Neck: Trachea central. No thyromegaly. Lungs unlabored breathing. Clear to auscultation anteriorly. Heart S1, S2. Regular rate and rhythm. ABDOMEN: Soft, no tenderness. No guarding or rigidity. No organomegaly. EXTREMITIES: No edema of the feet. Skin examination: No rash or mass palpable. Neurological: Patient is awake, alert, oriented. Mood and affect normal. LABS: Hemoglobin is 15.9, white count 6.9, BUN of 14, creatinine 0.60. Electrolytes have been normal. Liver enzymes are normal. Urine has been positive. DIAGNOSTIC IMPRESSION: Patient admitted to the hospital with worsening urinary symptoms with some left- sided flank pain. The patient did have history of recurrent UTI. She was recently admitted to this facility and treated with gentamicin for urinary tract infection and subsequently discharged on Macrobid now with recurrence of her symptoms with question of possible failure of the oral Macrobid therapy. patient does have MULTIPLE ANTIBIOTIC ALLERGIES that would limit the number of antibiotics that could be safely used. However, the patient currently do not have any fever or elevated white count suspicious for a deep infection such as pyelonephritis. PLAN: 1. Discontinue the gentamicin to decrease risk of nephrotoxicity. 2. Patient will be treated with Azactam 2 g q.12 while waiting for the culture to finalize. However, there was significant bloody yeast in the UA. Diflucan will be added as well. 3. We will follow up on clinical condition and culture to further adjust medication if needed. Thank you for this consultation. We will follow this patient along with you. MMODL / IJN: [id number] / [facility] HOSPITALEnzo
[2017-11-18] MEDS ORDERED: GENTAMICIN TROUGH DUE 1 EACH MISC MISCELLANE ONE (02:30)
[2017-11-18] MEDS ORDERED: GENTAMICIN 480 MG in SODIUM CHLORIDE 0.9% 100 ML IVPB SCH (03:00)
[2017-11-18 03:19] LABS: Blood Urea Nitrogen 17 mg/dL (7-17); Calcium 9.3 mg/dL (8.4-10.2); Carbon Dioxide 23 mmol/L (22-30); Glucose 255 mg/dL (74-99); Potassium 4.3 mmol/L (3.5-5.1); Sodium 135 mmol/L (137-145)
[2017-11-18 03:21] LABS: Anion Gap 11 mmol/L; Chloride 101 mmol/L (98-107)
[2017-11-18] MEDS: MORPHINE SULFATE ER 15 MG TABLET PO SCH ×2 (03:51→15:44)
[2017-11-18] MEDS: AZTREONAM 2 GM in SODIUM CHLORIDE 0.9% 100 ML IVPB SCH ×2 (03:52→15:44)
[2017-11-18 06:49] LABS: Glucose,Whole Blood 242 mg/dL (75-99)
[2017-11-18] MEDS: INSULIN ASPART 100 UNIT/ML 1 ML 10 ML VIAL SQ SCH ×4 (07:00→20:38)
[2017-11-18] MEDS: glipiZIDE 10 MG TAB PO SCH ×2 (07:01→17:31)
[2017-11-18] MEDS: HYDROmorphone 4 MG TABLET PO SCH ×4 (08:48→22:02)
[2017-11-18] MEDS: ALPRAZolam 0.25 MG TAB PO SCH ×3 (08:48→22:02)
[2017-11-18] MEDS: FERROUS SULFATE 325 MG TAB PO SCH (08:49)
[2017-11-18] MEDS: valACYclovir 500 MG TAB PO SCH (08:49)
[2017-11-18] MEDS: SENNOSIDES 8.6 MG TAB PO SCH (08:49)
[2017-11-18 10:48] LABS: Glucose,Whole Blood 283 mg/dL (75-99)
[2017-11-18] MEDS: SODIUM CHLORIDE 0.9% 1,000 ML IV SCH (10:55)
[2017-11-18] MEDS: MULTIVITAMINS, THERA 1 EACH TAB PO SCH (11:52)
[2017-11-18 17:25] LABS: Glucose,Whole Blood 196 mg/dL (75-99)
[2017-11-18] MEDS: FLUCONAZOLE 100 MG TAB PO SCH (17:31)
--- NOTE | 2017-11-18 17:43 | PN ---
PROGRESS NOTE DATE OF SERVICE: 11/18/2017. REASON FOR FOLLOWUP: Recurrent UTI. INTERVAL HISTORY: The patient is afebrile. She is complaining of pain in the left flank area and no concentrated urine noted. Denies having any chest pain. No nausea, no vomiting and no diarrhea. PHYSICAL EXAMINATION: Blood pressure 128/86 with a pulse of 80, temperature of 97.7, she is 96% on room air. General description is a middle aged female, lying in bed in no distress. RESPIRATORY SYSTEM: Unlabored breathing, clear to auscultation anteriorly. HEART: S1, S2. Regular rate and rhythm. ABDOMEN: Soft, no tenderness. LABS: BUN of 7, creatinine 0.50. Urine culture currently pending. DIAGNOSTIC IMPRESSION AND PLAN: Patient with a history of recurrent urinary tract infection, has been treated with mild antibiotic therapy. Patient started with Nitro-Bid, now presenting with a positive UA. This urine sample is showing mostly yeast. Diflucan will be added. Currently on Azactam with culture report pending. Continue supportive care. MMODL / IJN: [id number] / MTDD
[2017-11-18 20:35] LABS: Glucose,Whole Blood 240 mg/dL (75-99)
[2017-11-19] MEDS: MORPHINE SULFATE ER 15 MG TABLET PO SCH (04:00)
[2017-11-19] MEDS: AZTREONAM 2 GM in SODIUM CHLORIDE 0.9% 100 ML IVPB SCH (04:01)
[2017-11-19 06:30] LABS: Glucose,Whole Blood 214 mg/dL (75-99)
[2017-11-19] MEDS: INSULIN ASPART 100 UNIT/ML 1 ML 10 ML VIAL SQ SCH ×2 (06:33→12:34)
[2017-11-19] MEDS: glipiZIDE 10 MG TAB PO SCH (06:34)
[2017-11-19 06:57] LABS: Basophils % (A) 1 %; Eosinophils % (A) 0 %; HCT 41.6 % (34.0-46.0); HGB 13.7 gm/dL (11.4-16.0); Lymphocytes # (A) 1.9 k/uL (1.0-4.8); Lymphocytes % (A) 36 %; MCH 28.7 pg (25.0-35.0); MCHC 32.9 g/dL (31.0-37.0); MCV 87.4 fL (80.0-100.0); Mean Platelet Volume 7.8; Monocytes # (A) 0.5 k/uL (0-1.0); Monocytes % (A) 9 %; Neutrophils # (A) 2.8 k/uL (1.3-7.7); Neutrophils % (A) 52 %; Platelet Count 177 k/uL (150-450); RBC 4.76 m/uL (3.80-5.40); RDW 13.7 % (11.5-15.5); WBC 5.4 k/uL (3.8-10.6)
[2017-11-19 07:09] LABS: Anion Gap 11 mmol/L; Blood Urea Nitrogen 15 mg/dL (7-17); Carbon Dioxide 25 mmol/L (22-30); Chloride 101 mmol/L (98-107); Glucose 229 mg/dL (74-99); Potassium 4.4 mmol/L (3.5-5.1); Sodium 137 mmol/L (137-145)
[2017-11-19] MEDS: SODIUM CHLORIDE 0.9% 1,000 ML IV SCH (08:43)
[2017-11-19] MEDS: ALPRAZolam 0.25 MG TAB PO SCH (08:43)
[2017-11-19] MEDS: FERROUS SULFATE 325 MG TAB PO SCH (08:44)
[2017-11-19] MEDS: FLUCONAZOLE 100 MG TAB PO SCH (08:44)
[2017-11-19] MEDS: HYDROmorphone 4 MG TABLET PO SCH ×2 (08:44→12:33)
[2017-11-19] MEDS: valACYclovir 500 MG TAB PO SCH (08:45)
[2017-11-19] MEDS: SENNOSIDES 8.6 MG TAB PO SCH (08:45)
[2017-11-19 11:11] LABS: Glucose,Whole Blood 210 mg/dL (75-99)
[2017-11-19 12:22] VITALS: BP 126/81; PULSE 78; RESP 18; TEMP 97.9
[2017-11-19] MEDS: MULTIVITAMINS, THERA 1 EACH TAB PO SCH (12:34)
--- NOTE | 2017-11-19 13:55 | P.PN ---
Subjective Progress Note Date: 11/18/17 Principal diagnosis: UTI Ms. Krishnan is a 42-year-old female with a past medical history of diabetes mellitus, morbid obesity, hypertension, history of renal stones, fibromyalgia, recurrent UTI coming into the hospital with a chief complaint of left lower quadrant abdominal pain. Patient was treated for a urinary tract infection with Macrobid and has been discharged recently. Patient has multiple hospital admissions for the same complaint of abdominal pain. Patient was extensively evaluated in the past with colonoscopy, EGD which showed gastritis and hiatal hernia. Patient had a CAT scan in November 02 showing normal appendix and pancreas and negative otherwise. Patient has complaints of increased frequency of urine and the UA was positive for large leukocyte esterase with 155 RBCs and 21 WBCs and occasional budding yeast. So infectious disease Dr. orozco has been consulted and she was started on aztreonam for her UTI due to multiple drug ALLERGIES. Today patient is walking in the room. As per the nursing staff report patient has been getting hydroxymorpone 4 mg every 6 hours, morphine sulfate 50 mg every 12 hours for her belly pain. Per report patient has been comfortably lying in bed but when asked about her pain she states it is 8 out of 10 and always. Patient was walking comfortably when I went into the room but later stated that she is still having lower abdominal pain. On review of systems Constitutional- no fevers chills Cardiovascular -no chest pain palpitations Respiratory -no shortness of breath no cough GI - chronic abdominal pain no new changes Objective - Vital Signs Vital signs: Vital Signs Temp 97.7 F 11/18/17 12:45 Pulse 80 11/18/17 12:45 Resp 18 11/18/17 12:45 BP 128/86 11/18/17 12:45 Pulse Ox 96 11/18/17 12:45 Intake & Output 11/17/17 11/18/17 11/18/17 18:59 06:59 18:59 Other: Voiding Method Toilet Toilet Toilet # Voids 1 1 1 - Exam GENERAL: The patient is alert and oriented x3, not in any acute distress. Well developed, well nourished. HEENT: Pupils are round and equally reacting to light. EOMI. No scleral icterus. No conjunctival pallor. Normocephalic, atraumatic. No pharyngeal erythema. No thyromegaly. CARDIOVASCULAR: S1 and S2 present. No murmurs, rubs, or gallops. PULMONARY: Chest is clear to auscultation, no wheezing or crackles. ABDOMEN: Soft, nontender, nondistended, normoactive bowel sounds. Organomegaly cannot be appreciated due to huge abdomen MUSCULOSKELETAL: No joint swelling or deformity. EXTREMITIES: No cyanosis, clubbing, or pedal edema. NEUROLOGICAL: Gross neurological examination did not reveal any focal deficits. SKIN: No rashes. - Labs CBC & Chem 7: 11/17/17 14:00 11/18/17 02:33 Labs: Abnormal Lab Results - Last 24 Hours (Table) 11/17/17 11/17/17 11/18/17 Range/Units 16:52 21:04 02:33 Sodium 135 L (137-145) mmol/L Creatinine 0.50 L (0.52-1.04) mg/dL Glucose 255 H (74-99) mg/dL POC Glucose (mg/dL) 268 H 296 H (75-99) mg/dL 11/18/17 11/18/17 Range/Units 06:47 10:46 Sodium (137-145) mmol/L Creatinine (0.52-1.04) mg/dL Glucose (74-99) mg/dL POC Glucose (mg/dL) 242 H 283 H (75-99) mg/dL Microbiology - Last 24 Hours (Table) 11/16/17 21:15 Urine Culture - Final Urine,Voided Assessment and Plan Assessment: -Urinary tract infection - as the patient has multiple drug ALLERGIES and recently treated for a UTI , ID Dr. Peraza has been consulted and she has been started on aztreonam that will be continued for now. Awaiting urine cultures. - Abdominal pain : Patient was extensively evaluated in the past with a similar abdominal pain -surgical services have been consulted as the patient is well-known to them -they do not recommend getting a CAT scan as she recently had a CAT scan of the abdomen and pelvis on November 02- they are following her -Type 2 diabetes mellitus: Uncontrolled blood sugars will continue with her home regimen along with the sliding scale insulin and may need insulin upon discharge. -Fibromyalgia -Hypertension -Anxiety disorder -Obesity. Plan:Continue on aztreonam , sliding scale of insulin and pain medications. Awaiting urine cultures for titrating antibiotics. Further recommendations to follow depending on the progress of the patient.
--- NOTE | 2017-11-19 14:52 | P.DS ---
Providers Date of admission: 11/17/17 01:40 Expected date of discharge: 11/19/17 Attending physician: Neena Fischer Consults: 11/17/17 11:17 Consult Physician Urgent Consulting Provider: Laura Alejo Consult Reason/Comments: abdominal pain Do you want consulting provider notified?: Already Contacted 11/17/17 11:18 Consult Physician Urgent Consulting Provider: Cindy Peraza Consult Reason/Comments: abd pain/uti Do you want consulting provider notified?: Yes Primary care physician: Marleny Farrell [facility] Course: Ms. Krishnan is a 42-year-old female with a past medical history of diabetes mellitus, morbid obesity, hypertension, history of renal stones, fibromyalgia, recurrent UTI coming into the hospital with a chief complaint of left lower quadrant abdominal pain. Patient was treated for a urinary tract infection with Macrobid and has been discharged recently. Patient has multiple hospital admissions for the same complaint of abdominal pain. Patient was extensively evaluated in the past with colonoscopy, EGD which showed gastritis and hiatal hernia. Patient had a CAT scan in November 02 showing normal appendix and pancreas and negative otherwise. Patient has complaints of increased frequency of urine and the UA was positive for large leukocyte esterase with 155 RBCs and 21 WBCs and occasional budding yeast. So infectious disease Dr. Peraza has been consulted and she was started on aztreonam for her UTI due to multiple drug ALLERGIES. Patient's symptoms have improved and she received aztreonam for 4 days. The final urinary cultures have been negative . Patient is completely asymptomatic and has been cleared by ID Dr. Peraza to be discharged home today. Patient had budding yeast in the urine analysis but the urine culture showed no growth. She is being discharged on 100 mg of Diflucan for 3 more doses as per ID recommendations. No new medications added and patient is being discharged on her home medication regimen. Patient's discharge vitals and physical exam within normal limits. More than 35 minutes spent towards the discharge. Patient Condition at Discharge: Fair Plan - Discharge Summary Discharge Rx Participant: No New Discharge Prescriptions: New Fluconazole [Diflucan] 100 mg PO DAILY 3 Days #3 tab Continue Morphine Sulfate ER [Ms Contin] 15 mg PO Q12HR valACYclovir HCL [Valtrex] 500 mg PO DAILY Multivitamins, Thera [Multivitamin (formulary)] 1 tab PO DAILY Ferrous Sulfate [Iron (65 MG Elemental)] 325 mg PO DAILY glipiZIDE [Glucotrol] 10 mg PO AC-BID HYDROmorphone [Dilaudid] 4 mg PO QID Sennosides [Senna] 17.4 mg PO DAILY ALPRAZolam [Xanax] 0.25 mg PO TID Discharge Medication List Ferrous Sulfate [Iron (65 MG Elemental)] 325 mg PO DAILY 11/02/17 [History] Morphine Sulfate ER [Ms Contin] 15 mg PO Q12HR 11/02/17 [History] Multivitamins, Thera [Multivitamin (formulary)] 1 tab PO DAILY 11/02/17 [History ] glipiZIDE [Glucotrol] 10 mg PO AC-BID 11/02/17 [History] valACYclovir HCL [Valtrex] 500 mg PO DAILY 11/02/17 [History] HYDROmorphone [Dilaudid] 4 mg PO QID 11/11/17 [History] Sennosides [Senna] 17.4 mg PO DAILY 11/16/17 [History] ALPRAZolam [Xanax] 0.25 mg PO TID 11/17/17 [History] Fluconazole [Diflucan] 100 mg PO DAILY 3 Days #3 tab 11/19/17 [Rx] Follow up Appointment(s)/Referral(s): Marleny Farrell DO [Primary Care Provider] - 1-2 days Cindy Peraza MD [STAFF PHYSICIAN] - 1 Week Activity/Diet/Wound Care/Special Instructions: Continue consistent carbohydrate diet. Fluids are encouraged. Continue medication prescribed in its entirety. Use a probiotic or eat a yogurt while on medication. Call physicians with any questions comments concerns or worsening, returning symptoms, fever 101.1 or higher, not tolerating diet, not keeping fluids down, increased frequency urgency or pain that is not controlled by pain medication. Discharge Disposition: HOME SELF-CARE
--- NOTE | 2017-11-19 18:14 | PN ---
PROGRESS NOTE DATE OF SERVICE: 11/19/2017. REASON FOR FOLLOW UP: Urinary tract infection. INTERVAL HISTORY: The patient is afebrile. She is breathing comfortably. Denies any chest pain or shortness of breath. No nausea, vomiting. Still complaining of some vague lower abdominal pain. No diarrhea. Per the RN did mention that the urine has been clearing out yellow with no blood. EXAMINATION: Blood pressure is 126/81 with a pulse of 70, temperature 97.9. He is 95% on room air. General description is a middle aged female lying in bed in no distress. Respiratory system: Unlabored breathing, clear to auscultation anteriorly. HEART: S1, S2. Regular rate and rhythm. Abdomen soft, no tenderness. LABS: Hemoglobin 13.1, white count 5.4. The BUN of 15, creatinine 0.53. Urine cultures came back negative. DIAGNOSTIC IMPRESSION/PLAN: The patient admitted to the hospital with possible urinary tract infection. The patient did have abdominal pain and some urinary symptoms and positive UA though culture has been negative. Plan at this time is to give a short course of oral Diflucan to finish a course of therapy MMODL / IJN: [id number] / [id number]
== END 2017-11-19 13:15 | disposition home or self-care (01) ==
LOC: EC 19:27 → INTOOBSV 11-17 01:40 → 6PED 11-17 01:40 → UNDODISIN 11-19 13:15
PROVIDERS: ADMIT Hospitalist; ATTEND Hospitalist
DX: N39.0 Urinary tract infection, site not specified (principal); F11.20 Opioid dependence, uncomplicated; Z68.41 Body mass index [BMI] 40.0-44.9, adult; E11.65 Type 2 diabetes mellitus with hyperglycemia; E66.01 Morbid (severe) obesity due to excess calories; F32.9 Major depressive disorder, single episode, unspecified; F41.9 Anxiety disorder, unspecified; G89.29 Other chronic pain; I10 Essential (primary) hypertension; K21.9 Gastro-esophageal reflux disease without esophagitis; M79.7 Fibromyalgia; Z79.84 Long term (current) use of oral hypoglycemic drugs; Z79.899 Other long term (current) drug therapy; Z87.440 Personal history of urinary (tract) infections; Z87.442 Personal history of urinary calculi; Z86.14 Personal history of Methicillin resistant Staphylococcus aureus infection; Z90.49 Acquired absence of other specified parts of digestive tract; Z88.1 Allergy status to other antibiotic agents; Z88.0 Allergy status to penicillin; Z88.2 Allergy status to sulfonamides; Z88.8 Allergy status to other drugs, medicaments and biological substances; Z80.9 Family history of malignant neoplasm, unspecified; Z79.891 Long term (current) use of opiate analgesic; Z91.048 Other nonmedicinal substance allergy status; J44.9 Chronic obstructive pulmonary disease, unspecified; M79.89 Other specified soft tissue disorders; I83.90 Asymptomatic varicose veins of unspecified lower extremity; B95.1 Streptococcus, group B, as the cause of diseases classified elsewhere; K57.30 Diverticulosis of large intestine without perforation or abscess without bleeding; K44.9 Diaphragmatic hernia without obstruction or gangrene
CPT/HCPCS: 96366 ×2; 96367; 96365; 99284; 36415; 80170; 80053; 80048 ×2; 82150; 83690; 85025 ×3; 86140; 81001 ×2; 81025; 87086; 83036; G0378 ×3; J1580

== ENCOUNTER → 2018-01-31 | Outpatient (CLI) | payer OTHER ==
[2018-01-31 15:55] VITALS: BP 141/86; PULSE 71; RESP 16; TEMP 97.5; BMI 49.6
--- NOTE | 2018-01-31 16:49 | P.PN ---
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 She has poorly controlled diabetes and is on insulin. She was 520 pounds 2 [address] ago [address] You. ABDOMEN: Has pannicultitis. Weight of skin over 20+ pounds. Pannus over pubis 10 -cm to the proximal thigh PLAN: 1. Tight glycemic control for Hgb A1c for 7. Currently she is over 10! 2. Patient advised of risks of surgery 3. Diabetic education advised. 4. She has history of MRSA infection will need vacomycin Objective - Vital Signs Vital signs: Vital Signs Temp 97.5 F L 01/31/18 15:52 Pulse 71 01/31/18 15:52 Resp 16 01/31/18 15:52 BP 141/86 01/31/18 15:52 Pulse Ox Intake & Output 01/30/18 01/31/18 01/31/18 18:59 06:59 18:59 Weight 153.768 kg
== END ==
LOC: BARWHC3 15:05
PROVIDERS: ATTEND Surgery Plastic and Reconstructive Surgery
DX: M79.3 Panniculitis, unspecified (principal); E11.9 Type 2 diabetes mellitus without complications
CPT/HCPCS: 99211

== ENCOUNTER 2018-04-23 17:14 | Observation (INO) | payer OTHER ==
[2018-04-23 18:24] LABS: Basophils % (A) 0 %; Eosinophils # (A) 0.1 k/uL (0-0.7); Eosinophils % (A) 1 %; HCT 44.4 % (34.0-46.0); HGB 14.7 gm/dL (11.4-16.0); Lymphocytes # (A) 1.9 k/uL (1.0-4.8); Lymphocytes % (A) 26 %; MCH 29.6 pg (25.0-35.0); MCHC 33.1 g/dL (31.0-37.0); MCV 89.5 fL (80.0-100.0); Mean Platelet Volume 7.9; Monocytes # (A) 0.5 k/uL (0-1.0); Monocytes % (A) 6 %; Neutrophils # (A) 4.7 k/uL (1.3-7.7); Neutrophils % (A) 65 %; Platelet Count 197 k/uL (150-450); RBC 4.96 m/uL (3.80-5.40); RDW 13.5 % (11.5-15.5); WBC 7.3 k/uL (3.8-10.6)
[2018-04-23 18:33] LABS: Appearance,Urine Cloudy (Clear); Bilirubin,Urine Negative (Negative); Blood,Urine Negative (Negative); Color,Urine Yellow; Glucose,Urine (UA) 2+ (Negative); Ketones,Urine Trace (Negative); Leukocyte Esterase,Urine Large (Negative); Mucus,Urine Moderate /hpf; Nitrite,Urine Negative (Negative); PH, Urine 5.5 (5.0-8.0); Protein,Urine 2+ (Negative); RBC,Urine 14 /hpf (0-5); Specific Gravity,Urine 1.026 (1.001-1.035); Squamous Epithelial Cell,Urine 15 /hpf (0-4); WBC,Urine 13 /hpf (0-5)
[2018-04-23 18:34] LABS: ALT 28 U/L (9-52); AST 29 U/L (14-36); Albumin 4.1 g/dL (3.5-5.0); Alkaline Phosphatase 51 U/L (38-126); Amylase 47 U/L (30-110); Anion Gap 8 mmol/L; Blood Urea Nitrogen 15 mg/dL (7-17); Calcium 9.7 mg/dL (8.4-10.2); Carbon Dioxide 26 mmol/L (22-30); Chloride 104 mmol/L (98-107); Glucose 184 mg/dL (74-99); Lipase 80 U/L (23-300); Potassium 4.3 mmol/L (3.5-5.1); Sodium 138 mmol/L (137-145); Total Bilirubin 0.6 mg/dL (0.2-1.3); Total Protein 7.5 g/dL (6.3-8.2)
--- NOTE | 2018-04-23 19:01 | XR ---
EXAMINATION TYPE: XR KUB DATE OF EXAM: 04/23/2018 COMPARISON: 11/12/2017 HISTORY: Abdominal pain TECHNIQUE: 3 views upright FINDINGS: There is no sign of intestinal obstruction or pneumoperitoneum. Fecal pattern is normal. Th ere are clips from cholecystectomy. Lung bases are clear. There is mild thoracolumbar levoscoliosis. There are no pathologic calcifications over the kidneys. IMPRESSION: Nonacute abdomen. No change.
--- NOTE | 2018-04-23 19:41 | ED ---
General Adult HPI - General Chief complaint: Abdominal Pain Stated complaint: poss kidney stones/infection Source: patient, family, RN notes reviewed, old records reviewed Mode of arrival: ambulatory Limitations: no limitations - History of Present Illness Initial comments: Chief complaint history of present illness this is a 42-year-old female with frequent episodes of kidney stones and urinary tract infections. The patient portion of the feeling well for most a week. Decreased frequency of urination and dark urine. Denies fever or chills. But she has had pyelonephritis in the past. - Related Data Home Medications Medication Instructions Recorded Confirmed Ferrous Sulfate [Iron (65 MG 325 mg PO DAILY 11/02/17 04/23/18 Elemental)] Morphine Sulfate ER [Ms Contin] 15 mg PO Q12HR 11/02/17 04/23/18 Multivitamins, Thera [Multivitamin 1 tab PO DAILY 11/02/17 04/23/18 (formulary)] glipiZIDE [Glucotrol] 10 mg PO AC-BID 11/02/17 04/23/18 valACYclovir HCL [Valtrex] 500 mg PO DAILY 11/02/17 04/23/18 Sennosides [Senna] 17.4 mg PO DAILY 11/16/17 04/23/18 Insulin NPH Hum/Reg Insulin Hm 6 units SQ BID 04/23/18 04/23/18 [NovoLIN 70-30 100 UNIT/ML VIAL] L.acidoph,Paracasei, B.lactis 1 cap PO DAILY 04/23/18 04/23/18 [Probiotic] Nystatin 100,000 Unit/gm Powd 1 dose TOPICAL DAILY 04/23/18 04/23/18 [Mycostatin Powder] Cypress-3 Fatty Acids [Cypress-3] 1,000 mg PO DAILY 04/23/18 04/23/18 oxyCODONE-APAP 10-325MG [Percocet 1 tab PO QID 04/23/18 04/23/18 10-325 mg] Allergies Allergy/AdvReac Type Severity Reaction Status Date / Time adhesive tape Allergy Severe Rash/Hives Verified 04/23/18 21:02 cortisone [Cortisone] Allergy Severe Anaphylaxis Verified 04/23/18 21:02 diphenhydramine HCl Allergy Severe Anaphylaxis Verified 04/23/18 21:02 [From Benadryl] Penicillins Allergy Severe Anaphylaxis Verified 04/23/18 21:02 Sulfa (Sulfonamide Allergy Intermediate Rash/Hives Verified 04/23/18 21:02 Antibiotics) Cephalosporins Allergy Mild Rash/Hives Verified 04/23/18 21:02 doxycycline Allergy Mild Rash/Hives Verified 04/23/18 21:02 Quinolones Allergy Mild Rash/Hives Verified 04/23/18 21:02 Iodine and Iodide Containing Allergy Unknown Verified 04/23/18 21:02 Produc Review of Systems ROS Statement: Those systems with pertinent positive or pertinent negative responses have been documented in the HPI. Review of systems. Patient denies any headache or visual acuity changes slight shortness of breath patient is morbidly obese an excess of 330 pounds. Denies coughing or fever at home. Bilateral flank pain mild suprapubic pain. No chills or rashes. All systems are reviewed. Patient states no chance of being . Past medical problems kidney stones, insulin-dependent diabetes mellitus, fibromyalgia, hypertension, degenerative disc disease. Surgeries cholecystectomy, hernia repair, cataract surgery. She's also had renal stents. Family history cancer includes: Breast and skin. Patient has ALLERGIES to adhesive tape, cortisone, diphenhydramine, penicillin, sulfa, Levaquin, cephalosporins. She has been on Macrobid and gentamicin in the past. ROS Other: All systems not noted in ROS Statement are negative. Past Medical History Past Medical History: Diabetes Mellitus, Fibromyalgia, Hypertension, Musculoskeletal Disorder Additional Past Medical History / Comment(s): DEGENERATIVE DISC DISEASE, hx of kidney stones, History of Any Multi-Drug Resistant Organisms: MRSA Date of last positivie culture/infection: 07/04/01 MDRO Source:: gallbladder Past Surgical History: Cholecystectomy, Hernia Repair Additional Past Surgical History / Comment(s): CATARACT SURGERY, kidney stents ; Colonoscopies, Past Anesthesia/Blood Transfusion Reactions: No Reported Reaction Past Psychological History: Anxiety Smoking Status: Never smoker Past Alcohol Use History: None Reported Past Drug Use History: None Reported - Past Family History Father Family Medical History: No Reported History Mother Family Medical History: Cancer Sister(s) Family Medical History: Cancer General Exam - General Exam Comments Initial Comments: General: The patient is awake and alert, here with a complaint of not feeling well, thinks she might have urinary tract infection bilateral flank pain and suprapubic pain. She's had multiple UTIs in the past but start like this. The patient's vital signs are temperature 97.5 pulse 85 respiratory rate 18 pulse ox 90% room air blood pressure 133/91. Patient's morbidly obese in excess of 330 pounds. Eye: Pupils are equal, round and reactive to light, extra-ocular movements are intact ; there is normal conjunctiva bilaterally. No signs of icterus. Ears, nose, mouth and throat: There are moist mucous membranes and no oral lesions. Neck: The neck is supple, there is no tenderness. Cardiovascular: There is a regular rate and rhythm. No murmur, rub or gallop is appreciated. Respiratory: Lungs are clear to auscultation, respirations are non-labored, breath sounds are equal. No wheezes, stridor, rales, or rhonchi. Gastrointestinal: Soft, non-distended, non-tender abdomen without masses or organomegaly noted. There is no rebound or guarding present. No CVA tenderness. Bowel sounds are unremarkable. Mild suprapubic discomfort with palpation. Back: There is no tenderness to palpation in the midline. Bilateral flank discomfort. No rash noted. Musculoskeletal: Normal ROM, no tenderness, mild edema. There is no calf tenderness or swelling. Sensation intact. Neurological: No complaint of or evidence of any neuro deficits. Skin: No rashes Cooperative, Limitations: no limitations Course Vital Signs 04/23/18 04/23/18 04/23/18 17:43 19:11 20:35 Temperature 97.5 F L 97.0 F L Pulse Rate 85 82 79 Respiratory 18 18 18 Rate Blood Pressure 133/91 124/85 134/92 O2 Sat by Pulse 98 95 98 Oximetry 04/23/18 21:33 Temperature 97.2 F L Pulse Rate 82 Respiratory 17 Rate Blood Pressure 120/72 O2 Sat by Pulse 98 Oximetry Medical Decision Making - Medical Decision Making Medical decision making; this is a 42-year-old female with recurrent kidney infections. States that the feeling well for several days. In the past she's been treated with IV gentamicin because of multiple ALLERGIC reactions other medications. White count 7 hemoglobin 14 hematocrit of 44. Potassium 4.3 with a BUN of 15 creatinine 0.65 the GFR greater than 90. Glucose 189. Urine shows leuk esterase large, 14 reds 13 whites. Culture pending. Negative test The case was discussed with Dr. sheets, patient be admitted to his service started on gentamicin. Pharmacy to dose. Patient otherwise resting comfortably. Again, mild flank discomfort bilateral, no sweats, no chills. X-ray of the abdomen was done and reported by radiologist his impression is there is no sign of intestinal obstruction or pneumoperitoneum. Fecal pattern is normal. There are clips from cholecystectomy. Lung bases are clear. There is mild thoracolumbar level scoliosis. There are no pathologic calcifications over the kidneys. Impression nonacute abdomen. No change as read by Dr. Ordoñez CT of the abdomen was done and reviewed by radiologist his findings are there is no pulmonary consolidation at the lung bases. Heart size is normal. There is no pericardial effusion. Liver shows no focal defect. There are clips from cholecystectomy. Spleen appears normal. There is no evidence of a pancreatic mass. Bowel ducts are not dilated. The stomach appears normal. There is no adrenal mass. Kidneys have normal size and contour. There is no hydronephrosis. Ureters were not dilated. There is no retroperitoneal adenopathy. Bladder distended smoothly. There is no free fluid in the pelvis. There is no inguinal hernia. There is no evidence of overt mass. I see no intestinal wall thickening. There are no dilated loops. Appendix appears normal. There is no mesenteric edema or adenopathy. I see no focal bony obstruction. There is a disc space narrowing at L4-L5 and L5-S1. There is moderately severe bony spinal stenosis at L4-L5. The bony pelvis is intact. Impression; no acute abnormality within the abdomen and pelvis. Normal appendix. No evidence of renal stone or obstruction. Moderately severe bony spinal stenosis at L4-L5. Unchanged. As read by Dr. Ordoñez Patient reports being hospitalized for approximately 5 days last year because of an on-again off-again urinary tract infection and started much like her symptoms are today. Urine is positive for evidence of urinary tract infection. The patient is oriented was started on gentamicin. - Lab Data Result diagrams: 04/23/18 18:16 04/23/18 18:15 Lab Results 04/23/18 04/23/18 04/23/18 Range/Units 18:15 18:15 18:15 WBC (3.8-10.6) k/uL RBC (3.80-5.40) m/uL Hgb (11.4-16.0) gm/dL Hct (34.0-46.0) % MCV (80.0-100.0) fL MCH (25.0-35.0) pg MCHC (31.0-37.0) g/dL RDW (11.5-15.5) % Plt Count (150-450) k/uL Neutrophils % % Lymphocytes % % Monocytes % % Eosinophils % % Basophils % % Neutrophils # (1.3-7.7) k/uL Lymphocytes # (1.0-4.8) k/uL Monocytes # (0-1.0) k/uL Eosinophils # (0-0.7) k/uL Basophils # (0-0.2) k/uL Sodium 138 (137-145) mmol/L Potassium 4.3 (3.5-5.1) mmol/L Chloride 104 (98-107) mmol/L Carbon Dioxide 26 (22-30) mmol/L Anion Gap 8 mmol/L BUN 15 (7-17) mg/dL Creatinine 0.65 (0.52-1.04) mg/dL Est GFR (CKD-EPI)AfAm >90 (>60 ml/min/1.73 sqM) Est GFR (CKD-EPI)NonAf >90 (>60 ml/min/1.73 sqM) Glucose 184 H (74-99) mg/dL Plasma Lactic Acid Oliverio 1.0 (0.7-2.0) mmol/L Calcium 9.7 (8.4-10.2) mg/dL Total Bilirubin 0.6 (0.2-1.3) mg/dL AST 29 (14-36) U/L ALT 28 (9-52) U/L Alkaline Phosphatase 51 (38-126) U/L Total Protein 7.5 (6.3-8.2) g/dL Albumin 4.1 (3.5-5.0) g/dL Amylase 47 (30-110) U/L Lipase 80 (23-300) U/L Urine Color Yellow Urine Appearance Cloudy H (Clear) Urine pH 5.5 (5.0-8.0) Ur Specific Yeoman 1.026 (1.001-1.035) Urine Protein 2+ H (Negative) Urine Glucose (UA) 2+ H (Negative) Urine Ketones Trace H (Negative) Urine Blood Negative (Negative) Urine Nitrite Negative (Negative) Urine Bilirubin Negative (Negative) Urine Urobilinogen 2.0 (<2.0) mg/dL Ur Leukocyte Esterase Large H (Negative) Urine RBC 14 H (0-5) /hpf Urine WBC 13 H (0-5) /hpf Ur Squamous Epith Cells 15 H (0-4) /hpf Urine Mucus Moderate H (None) /hpf Urine HCG, Qual (Not Detectd) 04/23/18 04/23/18 Range/Units 18:15 18:16 WBC 7.3 (3.8-10.6) k/uL RBC 4.96 (3.80-5.40) m/uL Hgb 14.7 (11.4-16.0) gm/dL Hct 44.4 (34.0-46.0) % MCV 89.5 (80.0-100.0) fL MCH 29.6 (25.0-35.0) pg MCHC 33.1 (31.0-37.0) g/dL RDW 13.5 (11.5-15.5) % Plt Count 197 (150-450) k/uL Neutrophils % 65 % Lymphocytes % 26 % Monocytes % 6 % Eosinophils % 1 % Basophils % 0 % Neutrophils # 4.7 (1.3-7.7) k/uL Lymphocytes # 1.9 (1.0-4.8) k/uL Monocytes # 0.5 (0-1.0) k/uL Eosinophils # 0.1 (0-0.7) k/uL Basophils # 0.0 (0-0.2) k/uL Sodium (137-145) mmol/L Potassium (3.5-5.1) mmol/L Chloride (98-107) mmol/L Carbon Dioxide (22-30) mmol/L Anion Gap mmol/L BUN (7-17) mg/dL Creatinine (0.52-1.04) mg/dL Est GFR (CKD-EPI)AfAm (>60 ml/min/1.73 sqM) Est GFR (CKD-EPI)NonAf (>60 ml/min/1.73 sqM) Glucose (74-99) mg/dL Plasma Lactic Acid Oliverio (0.7-2.0) mmol/L Calcium (8.4-10.2) mg/dL Total Bilirubin (0.2-1.3) mg/dL AST (14-36) U/L ALT (9-52) U/L Alkaline Phosphatase (38-126) U/L Total Protein (6.3-8.2) g/dL Albumin (3.5-5.0) g/dL Amylase (30-110) U/L Lipase (23-300) U/L Urine Color Urine Appearance (Clear) Urine pH (5.0-8.0) Ur Specific Yeoman (1.001-1.035) Urine Protein (Negative) Urine Glucose (UA) (Negative) Urine Ketones (Negative) Urine Blood (Negative) Urine Nitrite (Negative) Urine Bilirubin (Negative) Urine Urobilinogen (<2.0) mg/dL Ur Leukocyte Esterase (Negative) Urine RBC (0-5) /hpf Urine WBC (0-5) /hpf Ur Squamous Epith Cells (0-4) /hpf Urine Mucus (None) /hpf Urine HCG, Qual Not Detected (Not Detectd) Disposition Clinical Impression: UTI (urinary tract infection) Disposition: ADMITTED IP TO THIS HOSP Condition: Fair Is patient prescribed a controlled substance at d/c from ED?: No Referrals: Marleny Farrell DO [Primary Care Provider] - 1-2 days
[2018-04-23] MEDS ORDERED: SODIUM CHLORIDE 0.9% 1,000 ML IV SCH (19:45)
[2018-04-23] MEDS ORDERED: GENTAMICIN PER PHARMACY MISCELLANE PRN (20:43)
[2018-04-23] MEDS ORDERED: GENTAMICIN 150 MG in SODIUM CHLORIDE 0.9% 100 ML IVPB ONE (21:00)
--- NOTE | 2018-04-23 22:10 | CT ---
EXAMINATION TYPE: CT abdomen pelvis wo con DATE OF EXAM: 04/23/2018 COMPARISON: 11/02/2017 HISTORY: rt/lt flank pain. R/o renal stone CT DLP: 1791 mGycm Automated exposure control for dose reduction was used. TECHNIQUE: Helical acquisition of images was performed from the lung bases through the pelvis. FINDINGS: There is no pulmonary consolidation at the lung bases. Heart size is normal. There is no pericardial effusion. Liver shows no focal defect. There are clips from cholecystectomy. Spleen appears normal. There is no evidence of a pancreatic mass. Bile ducts are not dilated. The stomach appears normal. There is no adrenal mass. Kidneys have normal size and contour. There is no hydronephrosis. Ureters a re not dilated. There is no retroperitoneal adenopathy. Bladder distends smoothly. There is no free fluid in the pelvis. There is no inguinal hernia. There i s no evidence of a pelvic mass. I see no intestinal wall thickening. There are no dilated loops. Appendix appears normal. There is no mesenteric edema or adenopathy. I see no focal bone destruction. There is disc space narrowing at L4-5 and L5-S1. There is moderately severe bony spinal stenosis at L4-5. The bony pelvis is intact. IMPRESSION: NO ACUTE ABNORMALITY WITHIN THE ABDOMEN AND PELVIS. NORMAL APPENDIX. NO EVIDENCE OF RENAL STONE OR OB STRUCTION. MODERATELY SEVERE BONY SPINAL STENOSIS AT L4-5 UNCHANGED.
[2018-04-23] MEDS ORDERED: ACETAMINOPHEN TAB 325 MG TAB PO PRN (22:16)
[2018-04-23] MEDS ORDERED: NALOXONE 0.4 MG/ML 1 ML VIAL IV PRN (22:16)
[2018-04-24 00:25] LABS: Glucose,Whole Blood 143 mg/dL (75-99)
[2018-04-24] MEDS ORDERED: oxyCODONE-APAP 10-325MG 1 EACH TAB PO STA (00:27)
[2018-04-24] MEDS: GENTAMICIN 150 MG in SODIUM CHLORIDE 0.9% 100 ML IVPB SCH ×4 (00:36→22:21)
[2018-04-24] MEDS: SODIUM CHLORIDE 0.9% 1,000 ML IV SCH ×3 (00:37→22:23)
[2018-04-24 07:51] LABS: Glucose,Whole Blood 170 mg/dL (75-99)
[2018-04-24] MEDS: FERROUS SULFATE 325 MG TAB PO SCH (08:02)
[2018-04-24] MEDS: MORPHINE SULFATE ER 15 MG TABLET PO SCH ×2 (08:09→21:13)
[2018-04-24] MEDS: INSULIN ASPART 100 UNIT/ML 1 ML 10 ML VIAL SQ SCH ×4 (08:09→21:14)
[2018-04-24] MEDS: NYSTATIN 100,000 UNIT/GM POWD 15 GM TOPICAL SCH (08:10)
[2018-04-24] MEDS: SENNOSIDES 8.6 MG TAB PO SCH (08:16)
[2018-04-24] MEDS: valACYclovir 500 MG TAB PO SCH (08:16)
[2018-04-24] MEDS: oxyCODONE-APAP 10-325MG 1 EACH TAB PO SCH ×4 (08:52→22:22)
[2018-04-24] MEDS ORDERED: SENNOSIDES 8.6 MG TAB PO SCH (09:00)
[2018-04-24 09:26] LABS: Basophils % (A) 1 %; Eosinophils % (A) 0 %; HCT 41.7 % (34.0-46.0); HGB 13.3 gm/dL (11.4-16.0); Lymphocytes # (A) 1.5 k/uL (1.0-4.8); Lymphocytes % (A) 31 %; MCH 28.8 pg (25.0-35.0); MCV 90.1 fL (80.0-100.0); Mean Platelet Volume 7.7; Monocytes # (A) 0.3 k/uL (0-1.0); Monocytes % (A) 7 %; Neutrophils # (A) 2.8 k/uL (1.3-7.7); Neutrophils % (A) 59 %; Platelet Count 188 k/uL (150-450); RBC 4.63 m/uL (3.80-5.40); RDW 13.4 % (11.5-15.5); WBC 4.8 k/uL (3.8-10.6)
[2018-04-24] MEDS ORDERED: NON-FORMULARY DRUG (Omega-3 Fatty Acids [Omega-3] 1,000 MG) PO SCH (09:45)
[2018-04-24] MEDS: glipiZIDE 10 MG TAB PO SCH ×2 (10:05→18:20)
[2018-04-24] MEDS ORDERED: MULTIVITAMINS, THERA 1 EACH TAB PO SCH (12:00)
[2018-04-24 12:40] LABS: Glucose,Whole Blood 148 mg/dL (75-99)
[2018-04-24] MEDS: INSULN ASP PRT/INSULIN ASPART 100 UNIT/ML 10 ML VIAL SQ SCH ×2 (13:10→21:13)
[2018-04-24 14:41] VITALS: RESP 20
[2018-04-24 17:22] LABS: Hemoglobin A1C 8.8 % (4.0-6.0)
[2018-04-24 17:36] LABS: Glucose,Whole Blood 113 mg/dL (75-99)
[2018-04-24 21:27] LABS: Glucose,Whole Blood 130 mg/dL (75-99)
[2018-04-24] MEDS ORDERED: GENTAMICIN TROUGH DUE 1 EACH MISC MISCELLANE ONE (21:30)
[2018-04-25] MEDS ORDERED: GENTAMICIN PEAK DUE 1 EACH MISC MISCELLANE ONE
--- NOTE | 2018-04-25 01:26 | P.HPIM ---
History of Present Illness H&P Date: 04/24/18 Chief Complaint: Lower back pain Patient is a 42-year-old female with a known history of diabetes type 2, morbid obesity, fibromyalgia and chronic lower back pain with recurrent urinary tract infections and nephrolithiasis came to ER with complaints of lower back pain which felt like previous renal stones. Denied any fever or chills. No complaints of hematuria or dysuria. No nausea vomiting or abdominal pain. No cough or sputum production. Patient came to the hospital for evaluation. Patient did have previous s history of E. coli urinary tract infection in October 2017. Patient does have uncontrolled diabetes2 with his B A1c was about 14 few months back and is currently following with endocrinology clinic. Most recent his B A1c was 9 as per patient. Patient is also having morbid obesity and is planning for abdominal tightening of skin once the blood sugar is better controlled. KUB x-ray showed no acute abdominal. CT of abdomen pelvis showed no acute abnormality within the abdomen and pelvis. No evidence of renal stone or obstruction. Moderately severe bony spinal stenosis at L4 to L5 unchanged. Review of Systems Constitutional: Patient denies any fever or chills . No generalized weakness or weight loss. Abdomen: Patient denied nausea vomiting and diarrhea and abdominal pain. Cardiovascular: Patient denies any chest pain or short of breath no palpitations. Respiratory: patient denied any cough is from production. No shortness of breath Neurologic: Patient denied any numbness or tingling headache. Musculoskeletal: Patient denies any complaints of joint swelling or deformity. Back pain. Skin: Negative Psychiatric: Negative Endocrine: No heat or cold intolerance. No recent weight gain. Genitourinary: No dysuria or hematuria. All other 14 point ROS negative except the above Past Medical History Past Medical History: Diabetes Mellitus, Fibromyalgia, Hypertension, Musculoskeletal Disorder Additional Past Medical History / Comment(s): DEGENERATIVE DISC DISEASE, hx of kidney stones, History of Any Multi-Drug Resistant Organisms: MRSA Date of last positivie culture/infection: 07/04/01 MDRO Source:: gallbladder Past Surgical History: Cholecystectomy, Hernia Repair Additional Past Surgical History / Comment(s): CATARACT SURGERY, kidney stents ; Colonoscopies, Past Anesthesia/Blood Transfusion Reactions: No Reported Reaction Past Psychological History: Anxiety Smoking Status: Never smoker Past Alcohol Use History: None Reported Past Drug Use History: None Reported - Past Family History Father Family Medical History: No Reported History Mother Family Medical History: Cancer Sister(s) Family Medical History: Cancer Medications and Allergies Home Medications Medication Instructions Recorded Confirmed Type Ferrous Sulfate [Iron (65 MG 325 mg PO DAILY 11/02/17 04/23/18 History Elemental)] Morphine Sulfate ER [Ms Contin] 15 mg PO Q12HR 11/02/17 04/23/18 History Multivitamins, Thera [Multivitamin 1 tab PO DAILY 11/02/17 04/23/18 History (formulary)] glipiZIDE [Glucotrol] 10 mg PO AC-BID 11/02/17 04/23/18 History valACYclovir HCL [Valtrex] 500 mg PO DAILY 11/02/17 04/23/18 History Sennosides [Senna] 17.4 mg PO DAILY 11/16/17 04/23/18 History Insulin NPH Hum/Reg Insulin Hm 6 units SQ BID 04/23/18 04/23/18 History [NovoLIN 70-30 100 UNIT/ML VIAL] L.acidoph,Paracasei, B.lactis 1 cap PO DAILY 04/23/18 04/23/18 History [Probiotic] Nystatin 100,000 Unit/gm Powd 1 dose TOPICAL DAILY 04/23/18 04/23/18 History [Mycostatin Powder] [place]-3 Fatty Acids [[place]-3] 1,000 mg PO DAILY 04/23/18 04/23/18 History oxyCODONE-APAP 10-325MG [Percocet 1 tab PO QID 04/23/18 04/23/18 History 10-325 mg] Allergies Allergy/AdvReac Type Severity Reaction Status Date / Time adhesive tape Allergy Severe Rash/Hives Verified 04/23/18 21:02 cortisone [Cortisone] Allergy Severe Anaphylaxis Verified 04/23/18 21:02 diphenhydramine HCl Allergy Severe Anaphylaxis Verified 04/23/18 21:02 [From Benadryl] Penicillins Allergy Severe Anaphylaxis Verified 04/23/18 21:02 Sulfa (Sulfonamide Allergy Intermediate Rash/Hives Verified 04/23/18 21:02 Antibiotics) Cephalosporins Allergy Mild Rash/Hives Verified 04/23/18 21:02 doxycycline Allergy Mild Rash/Hives Verified 04/23/18 21:02 Quinolones Allergy Mild Rash/Hives Verified 04/23/18 21:02 Iodine and Iodide Containing Allergy Unknown Verified 04/23/18 21:02 Produc Physical Exam Vitals: Vital Signs Temp Pulse Pulse Resp BP BP Pulse Ox 04/24/18 08:00 16 04/24/18 07:15 96.5 F L 82 20 124/77 93 L 04/23/18 23:55 97.4 F L 83 22 135/84 96 04/23/18 23:50 97.5 F L 87 17 118/76 95 04/23/18 22:41 89 18 121/80 95 04/23/18 21:33 97.2 F L 82 17 120/72 98 04/23/18 20:35 79 18 134/92 98 04/23/18 19:11 97.0 F L 82 18 124/85 95 04/23/18 17:43 97.5 F L 85 18 133/91 98 Intake and Output 04/23/18 04/24/18 04/24/18 22:59 06:59 14:59 Intake Total 100 240 Balance 100 240 Intake: Oral 100 240 Other: Voiding Method Toilet Toilet # Voids 1 Weight 151.046 kg 151.046 kg PHYSICAL EXAMINATION: Patient is lying in the bed comfortably, no acute distress, awake alert and oriented. Morbidly obese.. HEENT: Normocephalic. Neck is supple. Pupils reactive. Nostrils clear. Oral cavity is moist. Ears reveal no drainage. Neck reveals no JVD, carotid bruits, or thyromegaly. CHEST EXAMINATION: Trachea is central. Symmetrical expansion. Lung ramírez clear to auscultation and percussion. CARDIAC: Normal S1, S2 with no gallops. No murmurs ABDOMEN: Soft. Bowel sounds normal. organomegaly could not be assessed. No abdominal bruits. Extremities: reveal no edema. No clubbing or cyanosis Neurologically awake, alert, oriented x3 with well-coordinated movements. No focal deficits noted Skin: No rash or skin lesions. Psychiatric: Coperative. Nonsuicidal Musculoskeletal: No joint swelling or deformity. Normal range of motion. Results CBC & Chem 7: 04/24/18 08:14 04/23/18 18:15 Labs: Abnormal Lab Results - Last 24 Hours (Table) 04/23/18 04/23/18 04/24/18 Range/Units 18:15 18:15 00:21 Glucose 184 H (74-99) mg/dL POC Glucose (mg/dL) 143 H (75-99) mg/dL Urine Appearance Cloudy H (Clear) Urine Protein 2+ H (Negative) Urine Glucose (UA) 2+ H (Negative) Urine Ketones Trace H (Negative) Ur Leukocyte Esterase Large H (Negative) Urine RBC 14 H (0-5) /hpf Urine WBC 13 H (0-5) /hpf Ur Squamous Epith Cells 15 H (0-4) /hpf Urine Mucus Moderate H (None) /hpf 04/24/18 Range/Units 07:34 Glucose (74-99) mg/dL POC Glucose (mg/dL) 170 H (75-99) mg/dL Urine Appearance (Clear) Urine Protein (Negative) Urine Glucose (UA) (Negative) Urine Ketones (Negative) Ur Leukocyte Esterase (Negative) Urine RBC (0-5) /hpf Urine WBC (0-5) /hpf Ur Squamous Epith Cells (0-4) /hpf Urine Mucus (None) /hpf Microbiology - Last 24 Hours (Table) 04/23/18 18:15 Urine Culture - Preliminary Urine,Voided Thrombosis Risk Factor Assmnt - DVT/VTE Prophylaxis DVT/VTE Prophylaxis: Pharmacologic Prophylaxis ordered - Choose All That Apply Any of the Below Risk Factors Present?: Yes Each Factor Represents 1 point: Age 41-60 years, Obesity (BMI >25), Swollen legs (current) Thrombosis Risk Factor Assessment Total Risk Factor Score: 3 Thrombosis Risk Factor Assessment Level: Moderate Risk Assessment and Plan Assessment: Possible urinary tract infection. Low back pain due to L4-L5 spinal stenosis and degenerative disc disease History of renal stones. No evidence of stones in the CT abdomen and pelvis. Diabetes type 2 uncontrolled with hyperglycemia Fibromyalgia Anxiety Morbid obesity BMI 45.2 History of E. coli urinary tract infection DVT prophylaxis Plan: Patient will be continued on IV hydration and antibiotics in the form of gentamicin started in the ER. Follow up renal function. Insulin sliding scale and continue with home insulin dose and metformin and Actos. Pain management. We will follow up closely and further recommendations based on the clinical course. Time with Patient: Greater than 30
[2018-04-25] MEDS: GENTAMICIN 150 MG in SODIUM CHLORIDE 0.9% 100 ML IVPB SCH (07:04)
[2018-04-25 07:13] VITALS: BP 114/63; PULSE 77; TEMP 96.7
[2018-04-25 07:27] LABS: Glucose,Whole Blood 129 mg/dL (75-99)
[2018-04-25] MEDS: INSULIN ASPART 100 UNIT/ML 1 ML 10 ML VIAL SQ SCH (07:32)
[2018-04-25] MEDS: oxyCODONE-APAP 10-325MG 1 EACH TAB PO SCH (07:42)
[2018-04-25] MEDS: glipiZIDE 10 MG TAB PO SCH (07:42)
[2018-04-25] MEDS: valACYclovir 500 MG TAB PO SCH (07:42)
[2018-04-25] MEDS: SENNOSIDES 8.6 MG TAB PO SCH (07:42)
[2018-04-25] MEDS: FERROUS SULFATE 325 MG TAB PO SCH (07:42)
[2018-04-25] MEDS: MORPHINE SULFATE ER 15 MG TABLET PO SCH (07:42)
[2018-04-25] MEDS: INSULN ASP PRT/INSULIN ASPART 100 UNIT/ML 10 ML VIAL SQ SCH (07:43)
[2018-04-25] MEDS: NYSTATIN 100,000 UNIT/GM POWD 15 GM TOPICAL SCH (08:10)
[2018-04-25 08:32] LABS: Anion Gap 6 mmol/L; Blood Urea Nitrogen 11 mg/dL (7-17); Calcium 8.8 mg/dL (8.4-10.2); Carbon Dioxide 28 mmol/L (22-30); Chloride 104 mmol/L (98-107); Glucose 123 mg/dL (74-99); Potassium 4.6 mmol/L (3.5-5.1); Sodium 138 mmol/L (137-145)
[2018-04-25] MEDS ORDERED: LACTOBACILLUS ACIDOPH & BULGAR 1 EACH PACKET PO SCH (09:00)
[2018-04-25] MEDS ORDERED: GENTAMICIN 160 MG in SODIUM CHLORIDE 0.9% 100 ML IVPB SCH (18:00)
--- NOTE | 2018-05-22 00:01 | P.DS ---
Providers Date of admission: 04/23/18 22:16 Expected date of discharge: 04/25/18 Attending physician: Darci Gonzales MD Primary care physician: Marleny Farrell Hospital Course: Discharge diagnosis Possible urinary tract infection. Urine culture showed normal rachael. Low back pain due to L4-L5 spinal stenosis and degenerative disc disease. Improved. History of renal stones. No evidence of stones in the CT abdomen and pelvis. Diabetes type 2 uncontrolled with hyperglycemia Fibromyalgia Anxiety Morbid obesity BMI 45.2 History of E. coli urinary tract infection DVT prophylaxis Hospital course Patient is a 42-year-old female with a known history of diabetes type 2, morbid obesity, fibromyalgia and chronic lower back pain with recurrent urinary tract infections and nephrolithiasis came to ER with complaints of lower back pain which felt like previous renal stones. Denied any fever or chills. No complaints of hematuria or dysuria. No nausea vomiting or abdominal pain. No cough or sputum production. Patient came to the hospital for evaluation. Patient did have previous s history of E. coli urinary tract infection in October 2017. Patient does have uncontrolled diabetes2 with his B A1c was about 14 few months back and is currently following with endocrinology clinic. Most recent his B A1c was 9 as per patient. Patient is also having morbid obesity and is planning for abdominal tightening of skin once the blood sugar is better controlled. KUB x-ray showed no acute abdominal. CT of abdomen pelvis showed no acute abnormality within the abdomen and pelvis. No evidence of renal stone or obstruction. Moderately severe bony spinal stenosis at L4 to L5 unchanged. Patient was continued on IV hydration and antibiotics in the form of gentamicin started in the ER. Urine culture showed normal rachael.. Insulin sliding scale and continue with home insulin dose and metformin and Actos. Lower back pain is better controlled now. Likely due to spinal stenosis and degenerative disc disease. Otherwise patient is stable to be discharged home. Discharge physical examination was done and vitals reviewed. Patient Condition at Discharge: Fair Plan - Discharge Summary New Discharge Prescriptions: Continue Morphine Sulfate ER [Ms Contin] 15 mg PO Q12HR valACYclovir HCL [Valtrex] 500 mg PO DAILY Multivitamins, Thera [Multivitamin (formulary)] 1 tab PO DAILY Ferrous Sulfate [Iron (65 MG Elemental)] 325 mg PO DAILY glipiZIDE [Glucotrol] 10 mg PO AC-BID Sennosides [Senna] 17.4 mg PO DAILY oxyCODONE-APAP 10-325MG [Percocet 10-325 mg] 1 tab PO QID [place]-3 Fatty Acids [[place]-3] 1,000 mg PO DAILY Nystatin 100,000 Unit/gm Powd [Mycostatin Powder] 1 applic TOPICAL DAILY L.acidoph,Paracasei, B.lactis [Probiotic] 2 cap PO DAILY Insulin NPH Hum/Reg Insulin Hm [NovoLIN 70-30 100 UNIT/ML VIAL] 6 units SQ BID No Action Pioglitazone [Actos] 30 mg PO DAILY Methocarbamol [Robaxin-750] 750 mg PO TID PRN #15 tablet PRN Reason: pain Discharge Medication List Ferrous Sulfate [Iron (65 MG Elemental)] 325 mg PO DAILY 11/02/17 [History] Morphine Sulfate ER [Ms Contin] 15 mg PO Q12HR 11/02/17 [History] Multivitamins, Thera [Multivitamin (formulary)] 1 tab PO DAILY 11/02/17 [History ] glipiZIDE [Glucotrol] 10 mg PO AC-BID 11/02/17 [History] valACYclovir HCL [Valtrex] 500 mg PO DAILY 11/02/17 [History] Sennosides [Senna] 17.4 mg PO DAILY 11/16/17 [History] Insulin NPH Hum/Reg Insulin Hm [NovoLIN 70-30 100 UNIT/ML VIAL] 6 units SQ BID 04/23/18 [History] L.acidoph,Paracasei, B.lactis [Probiotic] 2 cap PO DAILY 04/23/18 [History] Nystatin 100,000 Unit/gm Powd [Mycostatin Powder] 1 applic TOPICAL DAILY [History] [place]-3 Fatty Acids [[place]-3] 1,000 mg PO DAILY 04/23/18 [History] oxyCODONE-APAP 10-325MG [Percocet 10-325 mg] 1 tab PO QID 04/23/18 [History] Methocarbamol [Robaxin-750] 750 mg PO TID PRN #15 tablet 05/15/18 [Rx] Pioglitazone [Actos] 30 mg PO DAILY 05/15/18 [History] Follow up Appointment(s)/Referral(s): Marleny Farrell DO [Primary Care Provider] - 04/26/18 10:15 am Patient Instructions/Handouts: Urinary Tract Infection in Women (DC) Discharge Disposition: HOME SELF-CARE
== END 2018-04-25 12:09 | disposition home or self-care (01) ==
LOC: EC 17:14 → 4MS4W 22:16
PROVIDERS: ADMIT Internal Medicine; ATTEND Internal Medicine
DX: M48.061 Spinal stenosis, lumbar region without neurogenic claudication (principal); Z87.442 Personal history of urinary calculi; N20.0 Calculus of kidney; M51.36 Other intervertebral disc degeneration, lumbar region; E11.65 Type 2 diabetes mellitus with hyperglycemia; M79.7 Fibromyalgia; F41.9 Anxiety disorder, unspecified; I10 Essential (primary) hypertension; E66.01 Morbid (severe) obesity due to excess calories; Z68.42 Body mass index [BMI] 45.0-49.9, adult; G89.29 Other chronic pain; Z87.440 Personal history of urinary (tract) infections; Z88.1 Allergy status to other antibiotic agents; Z88.0 Allergy status to penicillin; Z88.2 Allergy status to sulfonamides; Z88.8 Allergy status to other drugs, medicaments and biological substances; Z91.048 Other nonmedicinal substance allergy status; Z79.899 Other long term (current) drug therapy; Z79.891 Long term (current) use of opiate analgesic; Z79.84 Long term (current) use of oral hypoglycemic drugs; Z79.4 Long term (current) use of insulin; Z80.9 Family history of malignant neoplasm, unspecified; Z90.49 Acquired absence of other specified parts of digestive tract; Z86.14 Personal history of Methicillin resistant Staphylococcus aureus infection
CPT/HCPCS: 96366 ×2; 96365; 99285; 36415; 80170 ×2; 80053; 80048; 82150; 83605; 83690; 85025 ×2; 81001; 81025; 87040; 87086; 83036; 74018; 74176; G0378 ×3; J1580 ×3

== ENCOUNTER 2018-05-03 21:43 | Emergency (ER) | payer OTHER ==
[2018-05-03 22:23] LABS: Appearance,Urine Cloudy (Clear); Bilirubin,Urine Negative (Negative); Blood,Urine Negative (Negative); Color,Urine Yellow; Glucose,Urine (UA) 4+ (Negative); Ketones,Urine Negative (Negative); Leukocyte Esterase,Urine Large (Negative); Mucus,Urine Rare /hpf; Nitrite,Urine Negative (Negative); PH, Urine 5.5 (5.0-8.0); Protein,Urine 1+ (Negative); RBC,Urine 16 /hpf (0-5); Specific Gravity,Urine 1.027 (1.001-1.035); Squamous Epithelial Cell,Urine 7 /hpf (0-4); Urobilinogen,Urine <2.0 mg/dL (<2.0); WBC,Urine 14 /hpf (0-5)
[2018-05-03] MEDS ORDERED: SODIUM CHLORIDE 0.9% 1,000 ML IV ONE (22:31)
--- NOTE | 2018-05-03 22:32 | ED ---
Female Urogenital HPI - General Chief complaint: Urogenital Stated complaint: Kidney infection Time Seen by Provider: 05/03/18 21:50 Source: patient Mode of arrival: ambulatory Limitations: no limitations - History of Present Illness Initial comments: Vilma is an obese 42 yo female with recent history or recurrent UTI who presents to the ED today for evaluation of dysuria and bilateral flank pain. Patient reports that she was admitted 10 days ago for a urinary tract infection , she was treated with IV gentamicin due to her multiple medication ALLERGIES and subsequently discharged home without oral antibiotics. Patient reports she felt that her for couple of days but since that time has developed progressively worsening dysuria and over the past day and a half has bilateral flank pain. Patient reports that she's had intermittent urinary tract infection since approximately October. Patient also reports that she has had recurrent Bartholin gland infections which have required I&D. Patient is scheduled follow-up with urology in [place] in May and follow-up with gynecology in May as well. She reports that since her discharge from the hospital she is followed up with her primary care physician, they performed a urinalysis but did not prescribe any antibiotics. Patient is concerned she may have a urinary tract infection so she returned the ER today. Last Menstrual Period: 04/03/18 - Related Data Home Medications Medication Instructions Recorded Confirmed Ferrous Sulfate [Iron (65 MG 325 mg PO DAILY 11/02/17 05/03/18 Elemental)] Morphine Sulfate ER [Ms Contin] 15 mg PO Q12HR 11/02/17 05/03/18 Multivitamins, Thera [Multivitamin 1 tab PO DAILY 11/02/17 05/03/18 (formulary)] glipiZIDE [Glucotrol] 10 mg PO AC-BID 11/02/17 05/03/18 valACYclovir HCL [Valtrex] 500 mg PO DAILY 11/02/17 05/03/18 Sennosides [Senna] 17.4 mg PO DAILY 11/16/17 05/03/18 Insulin NPH Hum/Reg Insulin Hm 6 units SQ BID 04/23/18 05/03/18 [NovoLIN 70-30 100 UNIT/ML VIAL] L.acidoph,Paracasei, B.lactis 1 cap PO DAILY 04/23/18 05/03/18 [Probiotic] Nystatin 100,000 Unit/gm Powd 1 dose TOPICAL DAILY 04/23/18 05/03/18 [Mycostatin Powder] [place]-3 Fatty Acids [[place]-3] 1,000 mg PO DAILY 04/23/18 05/03/18 oxyCODONE-APAP 10-325MG [Percocet 1 tab PO QID 04/23/18 05/03/18 10-325 mg] Pioglitazone [Actos] 15 mg PO DAILY 05/03/18 05/03/18 Previous Rx's Medication Instructions Recorded Nitrofurantoin Monohyd/M-Cryst 100 mg PO Q12HR #13 cap 05/03/18 [Macrobid] Nitrofurantoin Monohyd/M-Cryst 100 mg PO Q12HR #13 cap 05/03/18 [Macrobid] Allergies Allergy/AdvReac Type Severity Reaction Status Date / Time adhesive tape Allergy Severe Rash/Hives Verified 05/03/18 22:10 cortisone [Cortisone] Allergy Severe Anaphylaxis Verified 05/03/18 22:10 diphenhydramine HCl Allergy Severe Anaphylaxis Verified 05/03/18 22:10 [From Benadryl] Penicillins Allergy Severe Anaphylaxis Verified 05/03/18 22:10 Sulfa (Sulfonamide Allergy Intermediate Rash/Hives Verified 05/03/18 22:10 Antibiotics) Cephalosporins Allergy Mild Rash/Hives Verified 05/03/18 22:10 doxycycline Allergy Mild Rash/Hives Verified 05/03/18 22:10 Quinolones Allergy Mild Rash/Hives Verified 05/03/18 22:10 Iodine and Iodide Containing Allergy Unknown Verified 05/03/18 22:10 Produc Review of Systems ROS Statement: Those systems with pertinent positive or pertinent negative responses have been documented in the HPI. ROS Other: All systems not noted in ROS Statement are negative. Past Medical History Past Medical History: Diabetes Mellitus, Fibromyalgia, Hypertension, Musculoskeletal Disorder Additional Past Medical History / Comment(s): DEGENERATIVE DISC DISEASE, hx of kidney stones, History of Any Multi-Drug Resistant Organisms: MRSA Date of last positivie culture/infection: 07/04/01 MDRO Source:: gallbladder Past Surgical History: Cholecystectomy, Hernia Repair Additional Past Surgical History / Comment(s): CATARACT SURGERY, kidney stents ; Colonoscopies, Past Anesthesia/Blood Transfusion Reactions: No Reported Reaction Past Psychological History: Anxiety Smoking Status: Never smoker Past Alcohol Use History: None Reported Past Drug Use History: None Reported - Past Family History Father Family Medical History: No Reported History Mother Family Medical History: Cancer Sister(s) Family Medical History: Cancer General Exam - General Exam Comments Initial Comments: Physical Exam GENERAL: Obese, chronically ill-appearing, appears older than stated age HENT: Normocephalic, Atraumatic. EYES: PERRL, EOMI PULMONARY: Unlabored respirations. No audible rales rhonchi or wheezing was noted. CARDIOVASCULAR: There is a regular rate and rhythm without any murmurs gallops or rubs. ABDOMEN: Soft and nontender with normal bowel sounds. Tenderness to percussion of bilateral flanks SKIN: Skin is clear with no lesions or rashes and otherwise unremarkable. : Deferred NEUROLOGIC: Patient is alert and oriented x3. Moving all extremities spontaneously MUSCULOSKELETAL: Normal extremities with adequate strength and full range of motion. No lower extremity swelling or edema. No calf tenderness. PSYCHIATRIC: Normal psychiatric evaluation. Limitations: no limitations Limitations: no limitations Course Vital Signs 05/03/18 05/03/18 21:45 23:49 Temperature 97.9 F 98.1 F Pulse Rate 85 81 Respiratory 18 20 Rate Blood Pressure 115/81 137/81 O2 Sat by Pulse 100 99 Oximetry Medical Decision Making - Medical Decision Making Patient was seen and evaluated, history was obtained from the patient and review of medical record Review of urine cultures for the past 6 months reveals the patient did at one time have E. coli positive, since that time she's only had group B and normal genital rachael in her urine cultures, negative blood cultures during all evaluations Urinalysis obtained is contaminated with squamous epithelium, however there is leukocyte esterase Review of the patient's ALLERGIES reveals patient would be a good candidate for Macrobid, first dose given in the emergency department Labs reveal no leukocytosis, normal kidney function At this time I don't feel there is any indication to admit the patient, I feel she likely suffering from chronic cystitis, I suspect her urinalysis abnormalities are secondary to squamous epithelial contamination. I did encourage the patient to contact her urologist and ward clerk to expedite follow-up. Return parameters were discussed, all questions pertaining to care were answered to the best of my ability and the patient was discharged home in stable condition. - Lab Data Result diagrams: 05/03/18 22:45 05/03/18 22:45 Lab Results 05/03/18 05/03/18 05/03/18 Range/Units 22:06 22:06 22:45 WBC (3.8-10.6) k/uL RBC (3.80-5.40) m/uL Hgb (11.4-16.0) gm/dL Hct (34.0-46.0) % MCV (80.0-100.0) fL MCH (25.0-35.0) pg MCHC (31.0-37.0) g/dL RDW (11.5-15.5) % Plt Count (150-450) k/uL Neutrophils % % Lymphocytes % % Monocytes % % Eosinophils % % Basophils % % Neutrophils # (1.3-7.7) k/uL Lymphocytes # (1.0-4.8) k/uL Monocytes # (0-1.0) k/uL Eosinophils # (0-0.7) k/uL Basophils # (0-0.2) k/uL Sodium 139 (137-145) mmol/L Potassium 4.4 (3.5-5.1) mmol/L Chloride 106 (98-107) mmol/L Carbon Dioxide 24 (22-30) mmol/L Anion Gap 9 mmol/L BUN 19 H (7-17) mg/dL Creatinine 0.55 (0.52-1.04) mg/dL Est GFR (CKD-EPI)AfAm >90 (>60 ml/min/1.73 sqM) Est GFR (CKD-EPI)NonAf >90 (>60 ml/min/1.73 sqM) Glucose 183 H (74-99) mg/dL Calcium 9.4 (8.4-10.2) mg/dL Urine Color Yellow Urine Appearance Cloudy H (Clear) Urine pH 5.5 (5.0-8.0) Ur Specific [place] 1.027 (1.001-1.035) Urine Protein 1+ H (Negative) Urine Glucose (UA) 4+ H (Negative) Urine Ketones Negative (Negative) Urine Blood Negative (Negative) Urine Nitrite Negative (Negative) Urine Bilirubin Negative (Negative) Urine Urobilinogen <2.0 (<2.0) mg/dL Ur Leukocyte Esterase Large H (Negative) Urine RBC 16 H (0-5) /hpf Urine WBC 14 H (0-5) /hpf Ur Squamous Epith Cells 7 H (0-4) /hpf Urine Mucus Rare H (None) /hpf Urine HCG, Qual Not Detected (Not Detectd) 05/03/18 Range/Units 22:45 WBC 5.8 (3.8-10.6) k/uL RBC 4.90 (3.80-5.40) m/uL Hgb 14.2 (11.4-16.0) gm/dL Hct 43.8 (34.0-46.0) % MCV 89.3 (80.0-100.0) fL MCH 28.9 (25.0-35.0) pg MCHC 32.4 (31.0-37.0) g/dL RDW 13.5 (11.5-15.5) % Plt Count 208 (150-450) k/uL Neutrophils % 57 % Lymphocytes % 34 % Monocytes % 6 % Eosinophils % 1 % Basophils % 0 % Neutrophils # 3.3 (1.3-7.7) k/uL Lymphocytes # 2.0 (1.0-4.8) k/uL Monocytes # 0.4 (0-1.0) k/uL Eosinophils # 0.1 (0-0.7) k/uL Basophils # 0.0 (0-0.2) k/uL Sodium (137-145) mmol/L Potassium (3.5-5.1) mmol/L Chloride (98-107) mmol/L Carbon Dioxide (22-30) mmol/L Anion Gap mmol/L BUN (7-17) mg/dL Creatinine (0.52-1.04) mg/dL Est GFR (CKD-EPI)AfAm (>60 ml/min/1.73 sqM) Est GFR (CKD-EPI)NonAf (>60 ml/min/1.73 sqM) Glucose (74-99) mg/dL Calcium (8.4-10.2) mg/dL Urine Color Urine Appearance (Clear) Urine pH (5.0-8.0) Ur Specific [place] (1.001-1.035) Urine Protein (Negative) Urine Glucose (UA) (Negative) Urine Ketones (Negative) Urine Blood (Negative) Urine Nitrite (Negative) Urine Bilirubin (Negative) Urine Urobilinogen (<2.0) mg/dL Ur Leukocyte Esterase (Negative) Urine RBC (0-5) /hpf Urine WBC (0-5) /hpf Ur Squamous Epith Cells (0-4) /hpf Urine Mucus (None) /hpf Urine HCG, Qual (Not Detectd) Disposition Clinical Impression: Cystitis Disposition: HOME SELF-CARE Condition: Good Instructions: Urinary Tract Infection in Women (ED) Prescriptions: Nitrofurantoin Monohyd/M-Cryst [Macrobid] 100 mg PO Q12HR #13 cap Nitrofurantoin Monohyd/M-Cryst [Macrobid] 100 mg PO Q12HR #13 cap Is patient prescribed a controlled substance at d/c from ED?: No Referrals: Marleny Farrell DO [Primary Care Provider] - 1-2 days Time of Disposition: 00:13
[2018-05-03 23:14] LABS: Basophils % (A) 0 %; Eosinophils # (A) 0.1 k/uL (0-0.7); Eosinophils % (A) 1 %; HCT 43.8 % (34.0-46.0); HGB 14.2 gm/dL (11.4-16.0); Lymphocytes % (A) 34 %; MCH 28.9 pg (25.0-35.0); MCHC 32.4 g/dL (31.0-37.0); MCV 89.3 fL (80.0-100.0); Mean Platelet Volume 7.4; Monocytes # (A) 0.4 k/uL (0-1.0); Monocytes % (A) 6 %; Neutrophils # (A) 3.3 k/uL (1.3-7.7); Neutrophils % (A) 57 %; Platelet Count 208 k/uL (150-450); RDW 13.5 % (11.5-15.5); WBC 5.8 k/uL (3.8-10.6)
[2018-05-03] MEDS ORDERED: NITROFURANTOIN MONOHYD/M-CRYST 100 MG CAP PO STA (23:24)
[2018-05-03 23:26] LABS: Anion Gap 9 mmol/L; Blood Urea Nitrogen 19 mg/dL (7-17); Calcium 9.4 mg/dL (8.4-10.2); Carbon Dioxide 24 mmol/L (22-30); Chloride 106 mmol/L (98-107); Glucose 183 mg/dL (74-99); Potassium 4.4 mmol/L (3.5-5.1); Sodium 139 mmol/L (137-145)
[2018-05-04 00:01] VITALS: BP 137/81; PULSE 81; RESP 20; TEMP 98.1
--- NOTE | 2018-05-04 00:10 | US ---
EXAM: US Retroperitoneal Limited, Renal CLINICAL HISTORY: ITS.REASON US Reason: Pain TECHNIQUE: Real-time ultrasound of the retroperitoneum (limited) with image documentation. COMPARISON: CT abdomen/pelvis on 04/23/2018 FINDINGS: Right kidney: Right kidney measures 11.8 cm in length. No hydronephrosis or stone. No mass. Left kidney: Left kidney measures 13.5 cm in length. No hydronephrosis or stone. No mass. Ureters: Nondilated. Bladder: Under distended bladder is not well-visualized. IMPRESSION: No hydronephrosis or stone.
== END 2018-05-04 00:30 | disposition home or self-care (01) ==
LOC: EC 21:43
DX: N30.90 Cystitis, unspecified without hematuria (principal); R10.9 Unspecified abdominal pain; E11.9 Type 2 diabetes mellitus without complications; M79.7 Fibromyalgia; I10 Essential (primary) hypertension; E66.9 Obesity, unspecified; Z68.42 Body mass index [BMI] 45.0-49.9, adult; F41.9 Anxiety disorder, unspecified; Z86.14 Personal history of Methicillin resistant Staphylococcus aureus infection; Z79.4 Long term (current) use of insulin; Z79.899 Other long term (current) drug therapy; Z79.891 Long term (current) use of opiate analgesic; Z88.0 Allergy status to penicillin; Z91.048 Other nonmedicinal substance allergy status; Z88.2 Allergy status to sulfonamides; Z88.1 Allergy status to other antibiotic agents; Z88.8 Allergy status to other drugs, medicaments and biological substances; Z90.49 Acquired absence of other specified parts of digestive tract
CPT/HCPCS: 36415; 76770; 80048; 81001; 81025; 85025; 87086; 96360; 99284

== ENCOUNTER 2018-05-15 20:37 | Emergency (ER) | payer OTHER ==
[2018-05-15 20:59] VITALS: RESP 18; TEMP 97.5
[2018-05-15 21:49] LABS: Basophils % (A) 1 %; Eosinophils % (A) 0 %; HCT 40.9 % (34.0-46.0); HGB 13.2 gm/dL (11.4-16.0); Lymphocytes # (A) 1.8 k/uL (1.0-4.8); Lymphocytes % (A) 32 %; MCH 29.3 pg (25.0-35.0); MCHC 32.4 g/dL (31.0-37.0); MCV 90.6 fL (80.0-100.0); Mean Platelet Volume 7.6; Monocytes # (A) 0.4 k/uL (0-1.0); Monocytes % (A) 6 %; Neutrophils # (A) 3.3 k/uL (1.3-7.7); Neutrophils % (A) 58 %; Platelet Count 210 k/uL (150-450); RBC 4.52 m/uL (3.80-5.40); RDW 13.4 % (11.5-15.5); WBC 5.7 k/uL (3.8-10.6)
[2018-05-15] MEDS ORDERED: ORPHENADRINE 30 MG/ML 2 ML VIAL IM STA (21:53)
[2018-05-15] MEDS ORDERED: KETOROLAC 30 MG/ML 1 ML VIAL IVP STA (21:53)
--- NOTE | 2018-05-15 21:53 | ED ---
General Adult HPI - General Chief complaint: Recheck/Abnormal Lab/Rx Stated complaint: Fibromyalgia Time Seen by Provider: 05/15/18 21:04 Source: patient Mode of arrival: ambulatory Limitations: no limitations - History of Present Illness Initial comments: This patient is a 42-year-old woman who complains of having what she is calling a "fibro-flare." She states she is having tightness in the bilateral shoulders , legs, and knees. She states this is identical to the symptoms that she always gets with fibromyalgia. She notes that they had taken her off of her home medications which were morphine and muscle relaxants due to concerns about the opioid epidemic. The patient denies any new or abnormal symptoms. She is not having fevers or chills. She has not had chest symptoms, including no shortness of breath, chest pain, or cough. She is not having abdominal pain nausea vomiting or diarrhea. She denies urinary symptoms. No rash. Joint swelling. Onset/Timin -: days(s) Location: left, right, upper extremity, lower extremity Quality: dull Consistency: constant Improves with: none Worsens with: movement Associated Symptoms: denies other symptoms Treatments Prior to Arrival: none - Related Data Home Medications Medication Instructions Recorded Confirmed Ferrous Sulfate [Iron (65 MG 325 mg PO DAILY 11/02/17 05/15/18 Elemental)] Morphine Sulfate ER [Ms Contin] 15 mg PO Q12HR 11/02/17 05/15/18 Multivitamins, Thera [Multivitamin 1 tab PO DAILY 11/02/17 05/15/18 (formulary)] glipiZIDE [Glucotrol] 10 mg PO AC-BID 11/02/17 05/15/18 valACYclovir HCL [Valtrex] 500 mg PO DAILY 11/02/17 05/15/18 Sennosides [Senna] 17.4 mg PO DAILY 11/16/17 05/15/18 Insulin NPH Hum/Reg Insulin Hm 6 units SQ BID 04/23/18 05/15/18 [NovoLIN 70-30 100 UNIT/ML VIAL] L.acidoph,Paracasei, B.lactis 2 cap PO DAILY 04/23/18 05/15/18 [Probiotic] Nystatin 100,000 Unit/gm Powd 1 applic TOPICAL DAILY 04/23/18 05/15/18 [Mycostatin Powder] [place]-3 Fatty Acids [[place]-3] 1,000 mg PO DAILY 04/23/18 05/15/18 oxyCODONE-APAP 10-325MG [Percocet 1 tab PO QID 04/23/18 05/15/18 10-325 mg] Pioglitazone [Actos] 30 mg PO DAILY 05/15/18 05/15/18 Previous Rx's Medication Instructions Recorded Methocarbamol [Robaxin-750] 750 mg PO TID PRN #15 tablet 05/15/18 Allergies Allergy/AdvReac Type Severity Reaction Status Date / Time adhesive tape Allergy Severe Rash/Hives Verified 05/15/18 21:33 cortisone [Cortisone] Allergy Severe Anaphylaxis Verified 05/15/18 21:33 diphenhydramine HCl Allergy Severe Anaphylaxis Verified 05/15/18 21:33 [From Benadryl] Penicillins Allergy Severe Anaphylaxis Verified 05/15/18 21:33 Sulfa (Sulfonamide Allergy Intermediate Rash/Hives Verified 05/15/18 21:33 Antibiotics) Cephalosporins Allergy Mild Rash/Hives Verified 05/15/18 21:33 doxycycline Allergy Mild Rash/Hives Verified 05/15/18 21:33 Quinolones Allergy Mild Rash/Hives Verified 05/15/18 21:33 Iodine and Iodide Containing Allergy Unknown Verified 05/15/18 21:33 Produc Review of Systems ROS Statement: Those systems with pertinent positive or pertinent negative responses have been documented in the HPI. ROS Other: All systems not noted in ROS Statement are negative. Constitutional: Denies: fever, chills, weakness Respiratory: Denies: cough, dyspnea Cardiovascular: Denies: chest pain, palpitations, edema Gastrointestinal: Denies: abdominal pain, nausea, vomiting, diarrhea Genitourinary: Denies: dysuria Musculoskeletal: Reports: myalgia. Denies: back pain Skin: Denies: rash Neurological: Denies: headache, weakness, numbness Past Medical History Past Medical History: Diabetes Mellitus, Fibromyalgia, Hypertension, Musculoskeletal Disorder Additional Past Medical History / Comment(s): DEGENERATIVE DISC DISEASE, hx of kidney stones, History of Any Multi-Drug Resistant Organisms: MRSA Date of last positivie culture/infection: 07/04/01 MDRO Source:: gallbladder Past Surgical History: Cholecystectomy, Hernia Repair Additional Past Surgical History / Comment(s): CATARACT SURGERY, kidney stents ; Colonoscopies, Past Anesthesia/Blood Transfusion Reactions: No Reported Reaction Past Psychological History: Anxiety Smoking Status: Never smoker Past Alcohol Use History: None Reported Past Drug Use History: None Reported - Past Family History Father Family Medical History: No Reported History Mother Family Medical History: Cancer Sister(s) Family Medical History: Cancer General Exam Limitations: no limitations General appearance: alert, in no apparent distress Head exam: Present: atraumatic, normocephalic ENT exam: Present: normal oropharynx Neck exam: Present: normal inspection, full ROM Respiratory exam: Present: normal lung sounds bilaterally. Absent: respiratory distress, wheezes, rales, rhonchi, stridor Cardiovascular Exam: Present: regular rate, normal rhythm, normal heart sounds. Absent: systolic murmur, diastolic murmur, rubs, gallop GI/Abdominal exam: Present: soft. Absent: distended, tenderness, guarding, rebound, rigid, mass Extremities exam: Present: normal inspection, normal capillary refill. Absent: pedal edema, calf tenderness Back exam: Present: normal inspection. Absent: CVA tenderness (R), CVA tenderness (L) Neurological exam: Present: alert Skin exam: Present: warm, dry, intact, normal color. Absent: rash Course Vital Signs 05/15/18 20:54 Temperature 97.5 F L Pulse Rate 99 Respiratory 18 Rate Blood Pressure 104/72 O2 Sat by Pulse 100 Oximetry Medical Decision Making - Lab Data Result diagrams: 05/15/18 21:34 05/15/18 21:34 Lab Results 05/15/18 05/15/18 05/15/18 Range/Units 21:34 21:34 21:34 WBC 5.7 (3.8-10.6) k/uL RBC 4.52 (3.80-5.40) m/uL Hgb 13.2 (11.4-16.0) gm/dL Hct 40.9 (34.0-46.0) % MCV 90.6 (80.0-100.0) fL MCH 29.3 (25.0-35.0) pg MCHC 32.4 (31.0-37.0) g/dL RDW 13.4 (11.5-15.5) % Plt Count 210 (150-450) k/uL Neutrophils % 58 % Lymphocytes % 32 % Monocytes % 6 % Eosinophils % 0 % Basophils % 1 % Neutrophils # 3.3 (1.3-7.7) k/uL Lymphocytes # 1.8 (1.0-4.8) k/uL Monocytes # 0.4 (0-1.0) k/uL Eosinophils # 0.0 (0-0.7) k/uL Basophils # 0.0 (0-0.2) k/uL Sodium 136 L (137-145) mmol/L Potassium 4.7 (3.5-5.1) mmol/L Chloride 100 (98-107) mmol/L Carbon Dioxide 29 (22-30) mmol/L Anion Gap 7 mmol/L BUN 22 H (7-17) mg/dL Creatinine 0.82 (0.52-1.04) mg/dL Est GFR (CKD-EPI)AfAm >90 (>60 ml/min/1.73 sqM) Est GFR (CKD-EPI)NonAf 89 (>60 ml/min/1.73 sqM) Glucose 293 H (74-99) mg/dL Calcium 9.2 (8.4-10.2) mg/dL Urine Color Yellow Urine Appearance Cloudy H (Clear) Urine pH 5.5 (5.0-8.0) Ur Specific [place] 1.027 (1.001-1.035) Urine Protein 1+ H (Negative) Urine Glucose (UA) 4+ H (Negative) Urine Ketones Trace H (Negative) Urine Blood Small H (Negative) Urine Nitrite Negative (Negative) Urine Bilirubin Negative (Negative) Urine Urobilinogen <2.0 (<2.0) mg/dL Ur Leukocyte Esterase Moderate H (Negative) Urine RBC 6 H (0-5) /hpf Urine WBC 25 H (0-5) /hpf Ur Squamous Epith Cells 19 H (0-4) /hpf Calcium Oxalate Crystal Rare H (None) /hpf Urine Bacteria Rare H (None) /hpf Urine Mucus Few H (None) /hpf Disposition Clinical Impression: Fibromyalgia Disposition: HOME SELF-CARE Condition: Good Instructions: Fibromyalgia (ED) Prescriptions: Methocarbamol [Robaxin-750] 750 mg PO TID PRN #15 tablet PRN Reason: pain Is patient prescribed a controlled substance at d/c from ED?: No Referrals: Marleny Farrell DO [Primary Care Provider] - 1-2 days
[2018-05-15 21:57] LABS: Anion Gap 7 mmol/L; Blood Urea Nitrogen 22 mg/dL (7-17); Calcium 9.2 mg/dL (8.4-10.2); Carbon Dioxide 29 mmol/L (22-30); Chloride 100 mmol/L (98-107); Glucose 293 mg/dL (74-99); Potassium 4.7 mmol/L (3.5-5.1); Sodium 136 mmol/L (137-145)
[2018-05-15 22:16] LABS: Appearance,Urine Cloudy (Clear); Bacteria,Urine Rare /hpf; Bilirubin,Urine Negative (Negative); Blood,Urine Small (Negative); Calcium Oxalate Crystals,Urine Rare /hpf; Color,Urine Yellow; Glucose,Urine (UA) 4+ (Negative); Ketones,Urine Trace (Negative); Leukocyte Esterase,Urine Moderate (Negative); Mucus,Urine Few /hpf; Nitrite,Urine Negative (Negative); PH, Urine 5.5 (5.0-8.0); Protein,Urine 1+ (Negative); RBC,Urine 6 /hpf (0-5); Specific Gravity,Urine 1.027 (1.001-1.035); Squamous Epithelial Cell,Urine 19 /hpf (0-4); Urobilinogen,Urine <2.0 mg/dL (<2.0); WBC,Urine 25 /hpf (0-5)
[2018-05-15 23:30] VITALS: BP 127/82; PULSE 81
== END 2018-05-15 23:29 | disposition home or self-care (01) ==
LOC: EC 20:37
DX: M79.7 Fibromyalgia (principal); E11.9 Type 2 diabetes mellitus without complications; Z86.14 Personal history of Methicillin resistant Staphylococcus aureus infection; Z79.4 Long term (current) use of insulin; Z79.891 Long term (current) use of opiate analgesic; Z79.899 Other long term (current) drug therapy; Z91.048 Other nonmedicinal substance allergy status; Z88.8 Allergy status to other drugs, medicaments and biological substances; Z88.0 Allergy status to penicillin; Z88.2 Allergy status to sulfonamides; Z88.1 Allergy status to other antibiotic agents
CPT/HCPCS: 36415; 80048; 85025; 81001; 99283; 96374; 96372; J2360; J1885

== ENCOUNTER → 2018-05-31 | Outpatient (CLI) | payer OTHER ==
[2018-05-31 09:49] LABS: Basophils % (A) 1 %; Eosinophils % (A) 1 %; HCT 42.6 % (34.0-46.0); HGB 13.5 gm/dL (11.4-16.0); Lymphocytes # (A) 1.2 k/uL (1.0-4.8); Lymphocytes % (A) 25 %; MCH 29.4 pg (25.0-35.0); MCHC 31.7 g/dL (31.0-37.0); MCV 92.6 fL (80.0-100.0); Mean Platelet Volume 7.3; Monocytes # (A) 0.3 k/uL (0-1.0); Monocytes % (A) 7 %; Neutrophils # (A) 3.1 k/uL (1.3-7.7); Neutrophils % (A) 64 %; Platelet Count 193 k/uL (150-450); RDW 13.8 % (11.5-15.5); WBC 4.8 k/uL (3.8-10.6)
[2018-05-31 17:52] LABS: Albumin 3.9 g/dL (3.80-4.90); Albumin/Globulin Ratio 1.95 (1.20-2.10); Anion Gap 6.9 mmol/L (4.00-12.00); Calcium 8.8 mg/dL (8.7-10.3); Carbon Dioxide 27.1 mmol/L (21.6-31.8); LDL Cholesterol,Calculated 90.6 mg/dL (0.0-131.0); Potassium 4.6 mmol/L (3.5-5.5); Total Bilirubin 0.5 mg/dL (0.3-1.2); Total Protein 5.9 g/dL (6.2-8.2); VLDL Calculation 19.4 mg/dL (5.00-40.00)
[2018-05-31 18:00] LABS: Progesterone <0.2 ng/mL
[2018-05-31 18:02] LABS: T4, Free (Free Thyroxine) 1.2 ng/dL (0.80-1.80)
[2018-05-31 19:13] LABS: Hemoglobin A1C 8.7 % (4.0-6.0)
== END | disposition home or self-care (01) ==
LOC: LABWHC1 09:19
PROVIDERS: ATTEND Family Medicine
DX: E11.9 Type 2 diabetes mellitus without complications (principal)
CPT/HCPCS: 36415; 80053; 80061; 82670; 83001; 83002; 83036; 84144; 84439; 84443; 85025

== ENCOUNTER → 2018-06-25 | Outpatient (CLI) | payer OTHER ==
[~2018-06-25] MED LIST changes: -LACTATED RINGERS 1,000 ML IV SCH; +REGADENOSON 0.4 MG/5 ML SYRINGE IV ONE
--- NOTE | 2018-06-25 12:04 | EST ---
EXERCISE STRESS AGE: 42 SEX: F HT: 6' WT: 350 PROTOCOL: Lexiscan Cardiolite Stress Test HEART RATE REST: 76 BLOOD PRESSURE REST: 84/66 MAXIMUM HEART RATE ACHIEVED: 104 MAXIMUM BLOOD PRESSURE: 115/52 INDICATIONS: EKG changes. CLINICAL INFORMATION: Baseline EKG shows sinus rhythm, normal axis, normal intervals. Patient was given intravenous Lexiscan as per protocol. Did not have chest pain or diagnostic ST-segment depression. CONCLUSION: 1. Negative stress test by EKG criteria. 2. Cardiolite portion of the stress test will be reported separately. MMODL / IJN: [id number] /
--- NOTE | 2018-06-25 15:38 | NM ---
EXAMINATION TYPE: NM stress lexiscan cardiolite DATE OF EXAM: 06/25/2018 COMPARISON: NONE HISTORY: EKG changes, abnormal EKG TECHNIQUE: After the intravenous administration of 10.6 mCi Tc 99m Sestamibi - Cardiolite resting SP ECT images acquired 47 minutes post injection. The patient received 0.4mg Lexiscan, 23.1 mCi Tc 99m Sestamibi - Stress images obtained [address] injection FINDINGS: Review of stress and rest SPECT images demonstrates decreased uptake along the inferolateral left michael tricle and anterior wall on stress and rest images. Gated analysis shows normal wall motion with an e stimated left ventricular ejection fraction of 71 %. IMPRESSION: Consider echocardiographic correlation for elevated ejection fraction. Findings suggest previous infarcts, no definite pharmacologically induced left ventricular myocardial ischemia.
== END ==
LOC: RADNMMAIN 08:50
PROVIDERS: ATTEND Family Medicine
DX: R94.31 Abnormal electrocardiogram [ECG] [EKG] (principal); Z88.0 Allergy status to penicillin; Z88.1 Allergy status to other antibiotic agents; Z88.2 Allergy status to sulfonamides; Z88.8 Allergy status to other drugs, medicaments and biological substances
CPT/HCPCS: 93017; 78452; A9500; J2785

== ENCOUNTER → 2018-09-26 | Outpatient (CLI) | payer OTHER ==
--- NOTE | 2018-09-26 15:18 | XR ---
EXAMINATION TYPE: XR chest 2V DATE OF EXAM: 09/26/2018 COMPARISON: 06/05/2017 HISTORY: Shortness of breath, cough, right-sided chest pain TECHNIQUE: Frontal and lateral views of the chest are obtained. FINDINGS: There is no focal air space opacity, pleural effusion, or pneumothorax seen. Lung volumes are slightly diminished in comparison to the prior crating crowding of the pulmonary vasculature. The cardiac silhouette size is within normal limits. The osseous structures are intact. IMPRESSION: Slightly diminished lung volumes in comparison to the prior. However no acute cardiopulm onary pathology is seen.
== END ==
LOC: RADXRMAIN 14:59
PROVIDERS: ATTEND Nurse Practitioner
DX: R05 Cough (principal); R06.02 Shortness of breath; R07.9 Chest pain, unspecified
CPT/HCPCS: 71046

== ENCOUNTER → 2019-02-06 | Outpatient (CLI) | payer OTHER ==
[2019-02-06 14:52] VITALS: BP 141/91; PULSE 83; RESP 16; TEMP 97.9; BMI 52.4
--- NOTE | 2019-02-06 15:54 | P.PN ---
Subjective Progress Note Date: 02/06/19 DATE OF SERVICE: 02/06/2019 CHIEF COMPLAINT: Panniculitis HISTORY OF PRESENT ILLNESS: Vilma Carter is a 43-year-old female who comes in with long-standing morbid obesity. She comes in with improved blood sugar glucose. She has no intention to loose any more weight. She has poorly controlled diabetes and uncontrolled hypertension. She is on chronic pain meds. She has had multiple hospitalizations for hyperglycemia and chronic urinary tract infections. At her height of 5 foot 9.25, her ideal body weight is 168 pounds. Her highest weight was 568 pounds, BMI 83.4. Today she comes in 357 pounds from 338 pounds, 1 year ago. She has gained 19 pounds in 1 year. Her body mass index is increase d from 49.7 to 52.5. She is 189 pounds overweight. Her lifetime weight loss is 211 pounds. She has achieved 53% excess weight loss on her own. She is looking into a panniculectomy. PAST MEDICAL HISTORY: 1. Morbid obesity, 83.4, initial 2. Diabetes type 2, insulin-dependent 3. Osteoarthritis of the knees. 4. Osteoarthritis of the hips. 5. Osteoarthritis of the lower back. 6. Obstructive sleep apnea. 7. Hypertensive heart disease. 8. Fibromyalgia 9. Panniculitis 10. Chronic pain syndrome 11. Asthma 12. History of MRSA infection 13. Anxiety PAST SURGICAL HISTORY: 1. Cholecystectomy 2. Cataract surgery. 3. Abdominal hernia repair HOME MEDICATIONS: 1. Valtrex 2. Glipizide 3. Nystatin powder 4. MS Contin 5. Colace 6. Albuterol inhaler ALLERGIES: 1. Adhesive tape 2. Cephalosporin 3. Cortisone 4. Penicillin 5. Doxycycline 6. Benadryl 7. Quinolone 8. Sulfa SOCIAL HISTORY: No active tobacco use. FAMILY HISTORY: No family history of ulcerative colitis disease or Crohn's disease. Family history of morbid obesity. No lupus in the family. No reports of stomach or esophageal cancer. Family history of diabetes type 2. REVIEW OF ORGAN SYSTEMS: CONSTITUTIONAL: At her height of 5 foot 9.25, her ideal body weight is 168 pounds. Her highest weight was 568 pounds. Her body mass index is decreased from 83.4. HEENT: Denies any active troubles with vision or hearing. No troubles with swallowing. ENDOCRINE: Has diabetes. No hypothyroidism. CARDIOVASCULAR: No reports of palpitations or heart attacks or chest pain. RESPIRATORY: Has daytime somnolence.Has asthma. GI: Denies any bright red blood per rectum. No diarrhea or constipation. MUSCULOSKELETAL: Has lower back pain and joint pain. Has osteoarthritis of the knees. NEURO: No headaches. No seizure disorders. PSYCH: No depression or suicidal ideation. Has fibromyalgia. RHEUMATOLOGIC: No lupus. No rheumatoid arthritis. HEMATOLOGIC: Denies any abnormal bleeding or bruising. No personal history of DVTs. SKIN: Has panniculitis. Has history of MRSA. : Has recurrent UTI with sepsis. PHYSICAL EXAM: VITAL SIGNS: Height 5 foot 9.25 inches, weight 357 pounds. BMI 52.5 Vital Signs Temp 97.9 F 02/06/19 14:49 Pulse 83 02/06/19 14:49 Resp 16 02/06/19 14:49 BP 141/91 02/06/19 14:49 Pulse Ox GENERAL: Well-developed in no acute distress. HEENT: No scleral icterus. Extraocular movements grossly intact. Hears conversational speech. No nasal drainage. NECK: Supple without lymphadenopathy. CHEST: Nonlabored respirations with equal bilateral excursions. CARDIOVASCULAR: Tachycardic. Distal 2+ pulses. ABDOMEN: Has pannicultitis. Pannus over 30+ pounds. Pannus over pubis 10-cm to the proximal thigh MUSCULOSKELETAL: No clubbing, cyanosis. Gross strength 5/5 distal lower extremities. 1+ edema, pre-tibial NEURO: No focal or lateralizing signs. Cranial nerves 2 through 12 grossly within normal limits. PSYCH: Appropriate affect. Alert and oriented to person, place and time. SKIN: Good skin turgor. Well perfused. ASSESSMENT: 1. Morbid obesity, 83.4, initial to 52.5 2. Diabetes type 2, insulin-dependent 3. Osteoarthritis of the knees. 4. Osteoarthritis of the hips. 5. Osteoarthritis of the lower back. 6. Obstructive sleep apnea. 7. Hypertensive heart disease. 8. Fibromyalgia 9. Panniculitis PLAN: 1. She reports her highest weight was over 500+ pounds. She will need documentation of past medical records to support her highest weight and lifetime weight loss. 2. Prior to any surgical procedure, she will need Hemoglobin A1C of 6.0% for tight glycemic control as she has poorly controlled diabetes. 3. Nystatin powder prescribed for recalcitrant panniculitis. 4. Referral to dentures lab technician for chronic panniculitis. 5. Alternative option include seeking a plastic surgeon for surgical care. Objective - Vital Signs Vital signs: Vital Signs Temp 97.9 F 02/06/19 14:49 Pulse 83 02/06/19 14:49 Resp 16 02/06/19 14:49 BP 141/91 02/06/19 14:49 Pulse Ox Intake & Output 02/05/19 02/06/19 02/06/19 18:59 06:59 18:59 Weight 162.386 kg
== END | disposition home or self-care (01) ==
LOC: BARWHC3 14:03
PROVIDERS: ATTEND Surgery Plastic and Reconstructive Surgery
DX: E66.01 Morbid (severe) obesity due to excess calories (principal); G47.33 Obstructive sleep apnea (adult) (pediatric); M79.3 Panniculitis, unspecified; E11.9 Type 2 diabetes mellitus without complications; M17.0 Bilateral primary osteoarthritis of knee; M16.0 Bilateral primary osteoarthritis of hip; I11.9 Hypertensive heart disease without heart failure; M79.7 Fibromyalgia; Z68.43 Body mass index [BMI] 50.0-59.9, adult; Z79.4 Long term (current) use of insulin; Z88.8 Allergy status to other drugs, medicaments and biological substances; Z88.1 Allergy status to other antibiotic agents; Z88.0 Allergy status to penicillin; Z88.2 Allergy status to sulfonamides; Z91.09 Other allergy status, other than to drugs and biological substances; Z79.899 Other long term (current) drug therapy
CPT/HCPCS: 99211

== ENCOUNTER 2019-11-21 19:44 | Observation (INO) | payer OTHER ==
[2019-11-21 20:13] LABS: Appearance,Urine Turbid (Clear); Bacteria,Urine Few /hpf; Bilirubin,Urine Negative (Negative); Blood,Urine Moderate (Negative); Color,Urine Yellow; Glucose,Urine (UA) Negative (Negative); Ketones,Urine 1+ (Negative); Leukocyte Esterase,Urine Large (Negative); Mucus,Urine Moderate /hpf; Nitrite,Urine Negative (Negative); PH, Urine 5.5 (5.0-8.0); Protein,Urine 2+ (Negative); RBC,Urine 40 /hpf (0-5); Specific Gravity,Urine 1.018 (1.001-1.035); Squamous Epithelial Cell,Urine 2 /hpf (0-4); Urobilinogen,Urine <2.0 mg/dL (<2.0); WBC,Urine >182 /hpf (0-5)
[2019-11-21] MEDS ORDERED: SODIUM CHLORIDE 0.9% 1,000 ML IV STA (20:31)
[2019-11-21 21:14] LABS: Basophils % (A) 0 %; Eosinophils % (A) 1 %; HGB 13.9 gm/dL (11.4-16.0); Lymphocytes # (A) 1.6 k/uL (1.0-4.8); Lymphocytes % (A) 19 %; MCH 29.3 pg (25.0-35.0); MCHC 32.3 g/dL (31.0-37.0); MCV 90.7 fL (80.0-100.0); Mean Platelet Volume 8.8; Monocytes # (A) 0.5 k/uL (0-1.0); Monocytes % (A) 6 %; Neutrophils # (A) 6.1 k/uL (1.3-7.7); Neutrophils % (A) 73 %; Platelet Count 221 k/uL (150-450); RBC 4.74 m/uL (3.80-5.40); RDW 12.9 % (11.5-15.5); WBC 8.4 k/uL (3.8-10.6)
[2019-11-21 21:43] LABS: ALT 24 U/L (4-34); AST 26 U/L (14-36); African American GFR (CKD) >90 (>60 ml/min/1.73 sqM); Alkaline Phosphatase 66 U/L (38-126); Anion Gap 8 mmol/L; Blood Urea Nitrogen 22 mg/dL (7-17); Carbon Dioxide 26 mmol/L (22-30); Chloride 101 mmol/L (98-107); Glucose 253 mg/dL (74-99); Non-African American GFR(CKD) >90 (>60 ml/min/1.73 sqM); Potassium 3.8 mmol/L (3.5-5.1); Sodium 135 mmol/L (137-145); Total Bilirubin 0.8 mg/dL (0.2-1.3); Total Protein 7.1 g/dL (6.3-8.2)
--- NOTE | 2019-11-21 21:52 | US ---
EXAMINATION TYPE: US venous doppler duplex LE RT DATE OF EXAM: 11/21/2019 9:46 PM COMPARISON: NONE CLINICAL HISTORY: calf pain. Calf pain. No hx of DVT. Patient does not take blood thinners. SIDE PERFORMED: Right TECHNIQUE: The lower extremity deep venous system is examined utilizing real time linear array sonog richard with graded compression, doppler sonography and color-flow sonography. VESSELS IMAGED: External Iliac Vein (EIV) Common Femoral Vein Deep Femoral Vein Greater Saphenous Vein * Femoral Vein Popliteal Vein Small Saphenous Vein * Proximal Calf Veins (* superficial vessels) Right Leg: No evidence of DVT in veins imaged at this time from prox calf veins to EIV. Slightly rosado ited due to large patient body habitus. IMPRESSION: No convincing evidence for acute DVT in the right lower extremity.
--- NOTE | 2019-11-21 23:49 | CT ---
EXAMINATION TYPE: CT abdomen pelvis wo con DATE OF EXAM: 11/21/2019 COMPARISON: 04/23/2018 HISTORY: left flank pain CT DLP: 2628 mGycm Automated exposure control for dose reduction was used. Images were obtained from the diaphragm to the floor the pelvis with no contrast. FINDINGS: Lung bases are clear. There is no pleural effusion. Heart size is normal. Spleen is enlarged and measures 15.5 cm. Liver shows no focal defect. The bile ducts are not dilated. There are clips from cholecystectomy. Stomach is intact. There is no pancreatic mass. There is no adrenal mass. Kidneys have normal size. There is mild left-sided hydronephrosis and hydro ureter. There is mild left side perinephric edema. There are multiple phleboliths in the pelvis. I se e no definite ureteral calculus. I see no calculus within the kidneys. There is no retroperitoneal ad enopathy. Appendix appears normal. Bladder distends smoothly. There is no inguinal hernia. There is no free fluid in the pelvis. There i s no mesenteric edema. There is no ascites or free air. There is no sign of a bowel obstruction. Lumb ar vertebra have fairly normal alignment. There is narrowing at L4-5 disc. There is vacuum disc at L5 -S1. There is no compression fracture. The bony pelvis appears intact. There is no mesenteric edema. There is no ascites or free air. There is no sign of a bowel obstructio n. IMPRESSION: Mild left-sided hydronephrosis and hydroureter with periureteral edema. No definite ureteral stone se en. This could relate to nonopaque stone or recently passed stone. Abnormality is a change compared t o old exam. Splenomegaly unchanged. Normal appendix.
[2019-11-22] MEDS ORDERED: NALOXONE 0.4 MG/ML 1 ML VIAL IV PRN (01:04)
[2019-11-22] MEDS ORDERED: ACETAMINOPHEN TAB 325 MG TAB PO PRN (01:04)
--- NOTE | 2019-11-22 01:04 | ED ---
Female Urogenital HPI - General Chief complaint: Urogenital Stated complaint: Poss UTI, flank pain Time Seen by Provider: 11/21/19 19:50 Source: patient, family Mode of arrival: ambulatory - History of Present Illness Initial comments: The patient is a 44-year-old female past history of diabetes, fibromyalgia, kidney stones or recurrent urinary tract infections who presents to the emergency department with reported urinary tract infection since June. She states that she's had issues with dysuria, hematuria for the past several months. She follows up in her primary care office and hasn't placed on Macrobid as several times. States that her urinary tract infection will improve for a couple of days however return. She is also seeing a urologist out of [place] for her recurrent urinary tract infections. States that she has been in hospice previously and had to receive aztreonam as there are no other antibiotics that she can half because of her severe ALLERGIES. Patient reports that she was seen in her primary care office and placed on Macrobid. States she finished that about approximately one week ago. She continues to have dysuria, hematuria and left-sided flank pain. Reports that the pain in her flank is getting worse. She also has a history of renal stones. She denies any fevers or chills. No nausea or vomiting. Denies concern for . No vaginal bleeding currently or vaginal discharge. Denies any changes in her bowel movements. No other alleviating, precipitating or modifying factors - Related Data Home Medications Medication Instructions Recorded Confirmed Ferrous Sulfate [Iron (65 MG 325 mg PO DAILY 11/02/17 11/21/19 Elemental)] Morphine Sulfate ER [Ms Contin] 15 mg PO BID 11/02/17 11/21/19 glipiZIDE [Glucotrol] 10 mg PO BID 11/02/17 11/21/19 Sennosides [Senna] 17.4 mg PO DAILY 11/16/17 11/21/19 L.acidoph,Paracasei, B.lactis 1 cap PO DAILY 04/23/18 11/21/19 [Probiotic] [place]-3 Fatty Acids [[place]-3] 1,000 mg PO DAILY 04/23/18 11/21/19 oxyCODONE-APAP 10-325MG [Percocet 1 tab PO QID 04/23/18 11/21/19 10-325 mg] Pioglitazone [Actos] 30 mg PO DAILY 05/15/18 11/21/19 Hydrochlorothiazide 25 mg PO DAILY 02/06/19 11/21/19 Ascorbic Acid [Vitamin C] 500 mg PO DAILY 11/21/19 11/21/19 Baclofen 10 mg PO BID PRN 11/21/19 11/21/19 Beclomethasone Dip 80 Mcg/Puff 1 puff INHALATION RT-BID 11/21/19 11/21/19 [Qvar 80 mcg] Cholecalciferol [Vitamin D3 (25 2,000 unit PO DAILY 11/21/19 11/21/19 Mcg = 1000 Iu)] Cyanocobalamin (Vitamin B-12) 1,000 mcg PO DAILY 11/21/19 11/21/19 [Vitamin B-12] Magnesium Oxide 400 mg PO DAILY 11/21/19 11/21/19 Potassium Gluconate 99 mg PO DAILY 11/21/19 11/21/19 valACYclovir HCL [Valacyclovir] 1,000 mg PO BID 11/21/19 11/21/19 Previous Rx's Medication Instructions Recorded Nitrofurantoin Macrocrystal 100 mg PO QID #16 cap 11/24/19 [Macrodantin] Allergies Allergy/AdvReac Type Severity Reaction Status Date / Time adhesive tape Allergy Severe Rash/Hives Verified 11/21/19 23:50 cortisone [Cortisone] Allergy Severe Anaphylaxis Verified 11/21/19 23:50 diphenhydramine HCl Allergy Severe Anaphylaxis Verified 11/21/19 23:50 [From Benadryl] Penicillins Allergy Severe Anaphylaxis Verified 11/21/19 23:50 Sulfa (Sulfonamide Allergy Intermediate Rash/Hives Verified 11/21/19 23:50 Antibiotics) Cephalosporins Allergy Mild Rash/Hives Verified 11/21/19 23:50 doxycycline Allergy Mild Rash/Hives Verified 11/21/19 23:50 Quinolones Allergy Mild Rash/Hives Verified 11/21/19 23:50 [place] And Derivatives Allergy Rash/Hives Verified 11/22/19 02:55 [[place]] Iodine and Iodide Containing Allergy Unknown Verified 11/21/19 23:50 Produc Review of Systems ROS Statement: Those systems with pertinent positive or pertinent negative responses have been documented in the HPI. ROS Other: All systems not noted in ROS Statement are negative. 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 Date of last positivie culture/infection: 07/04/01 MDRO Source:: gallbladder Past Surgical History: Cholecystectomy, Hernia Repair Additional Past Surgical History / Comment(s): CATARACT SURGERY, kidney stents ; Colonoscopies, ventral hernia 08/02/17, Past Anesthesia/Blood Transfusion Reactions: No Reported Reaction Past Psychological History: Anxiety Smoking Status: Never smoker Past Alcohol Use History: None Reported Past Drug Use History: None Reported - Past Family History Father Family Medical History: No Reported History Mother Family Medical History: Cancer Additional Family Medical History / Comment(s): breast cancer (axilla location) dx at age 45. Maternal aunt dx with breast cancer @50, at age 54 from breast cancer Sister(s) Family Medical History: Cancer Additional Family Medical History / Comment(s): at age 8 from Leukemia, General Exam General appearance: alert, in no apparent distress Head exam: Present: atraumatic, normocephalic, normal inspection Eye exam: Present: normal appearance, PERRL, EOMI. Absent: scleral icterus, conjunctival injection, periorbital swelling ENT exam: Present: normal exam, mucous membranes moist Neck exam: Present: normal inspection. Absent: tenderness, meningismus, lymphadenopathy Respiratory exam: Present: normal lung sounds bilaterally. Absent: respiratory distress, wheezes, rales, rhonchi, stridor Cardiovascular Exam: Present: regular rate, normal rhythm, normal heart sounds. Absent: systolic murmur, diastolic murmur, rubs, gallop, clicks GI/Abdominal exam: Present: soft, normal bowel sounds. Absent: distended, tenderness, guarding, rebound, rigid Extremities exam: Present: normal inspection, full ROM, normal capillary refill. Absent: tenderness, pedal edema, joint swelling, calf tenderness Back exam: Present: normal inspection, CVA tenderness (L) Neurological exam: Present: alert, oriented X3, CN II-XII intact Psychiatric exam: Present: normal affect, normal mood Skin exam: Present: warm, dry, intact, normal color. Absent: rash Course Vital Signs 11/21/19 11/21/19 11/21/19 19:46 21:09 23:00 Temperature 98.3 F Pulse Rate 95 96 88 Pulse Rate [ Pulse Oximetery ] Respiratory 18 18 18 Rate Blood Pressure 139/96 128/97 110/75 Blood Pressure [Left Arm] O2 Sat by Pulse 99 96 96 Oximetry 11/22/19 11/22/19 00:18 01:04 Temperature 97.9 F Pulse Rate 84 Pulse Rate [ 80 Pulse Oximetery ] Respiratory 18 18 Rate Blood Pressure 126/88 Blood Pressure 115/81 [Left Arm] O2 Sat by Pulse 96 99 Oximetry Medical Decision Making - Medical Decision Making Upon arrival the patient is placed into room 22. A thorough history and physical exam was performed. Lab studies were conducted. Patient provided urine sample. She is also sent over for CT to evaluate for kidney stones. Lab studies are remarkable for a grossly infected urine. CT demonstrates mild left sided hydronephrosis and hydroureter with periureteral edema. No definite ureteral stone seen. He could relate to a nonopaque stone or recently passed stone. I also performed a Doppler of the patient's right lower externally as she is reporting to nighttime posterior calf pain. This is negative for DVT. I did discuss the diagnosis, differential and treatment options. Patient would be stable for discharge home at this time however she does have significant ALLERGIES. Patient does not have a suitable by mouth option for treatment of pallor phrases. Because of this I discussed the case with Dr. Rogel who accepted admission. I will consult infectious disease and urology. Patient was then transferred floor in stable condition - Lab Data Result diagrams: 11/23/19 07:05 11/23/19 07:05 Lab Results 11/21/19 11/21/19 11/21/19 Range/Units 19:52 19:52 21:09 WBC 8.4 (3.8-10.6) k/uL RBC 4.74 (3.80-5.40) m/uL Hgb 13.9 (11.4-16.0) gm/dL Hct 43.0 (34.0-46.0) % MCV 90.7 (80.0-100.0) fL MCH 29.3 (25.0-35.0) pg MCHC 32.3 (31.0-37.0) g/dL RDW 12.9 (11.5-15.5) % Plt Count 221 (150-450) k/uL Neutrophils % 73 % Lymphocytes % 19 % Monocytes % 6 % Eosinophils % 1 % Basophils % 0 % Neutrophils # 6.1 (1.3-7.7) k/uL Lymphocytes # 1.6 (1.0-4.8) k/uL Monocytes # 0.5 (0-1.0) k/uL Eosinophils # 0.0 (0-0.7) k/uL Basophils # 0.0 (0-0.2) k/uL Sodium (137-145) mmol/L Potassium (3.5-5.1) mmol/L Chloride (98-107) mmol/L Carbon Dioxide (22-30) mmol/L Anion Gap mmol/L BUN (7-17) mg/dL Creatinine (0.52-1.04) mg/dL Est GFR (CKD-EPI)AfAm (>60 ml/min/1.73 sqM) Est GFR (CKD-EPI)NonAf (>60 ml/min/1.73 sqM) Glucose (74-99) mg/dL Plasma Lactic Acid [place] (0.7-2.0) mmol/L Calcium (8.4-10.2) mg/dL Total Bilirubin (0.2-1.3) mg/dL AST (14-36) U/L ALT (4-34) U/L Alkaline Phosphatase (38-126) U/L Total Protein (6.3-8.2) g/dL Albumin (3.5-5.0) g/dL Lipase (23-300) U/L Urine Color Yellow Urine Appearance Turbid H (Clear) Urine pH 5.5 (5.0-8.0) Ur Specific [place] 1.018 (1.001-1.035) Urine Protein 2+ H (Negative) Urine Glucose (UA) Negative (Negative) Urine Ketones 1+ H (Negative) Urine Blood Moderate H (Negative) Urine Nitrite Negative (Negative) Urine Bilirubin Negative (Negative) Urine Urobilinogen <2.0 (<2.0) mg/dL Ur Leukocyte Esterase Large H (Negative) Urine RBC 40 H (0-5) /hpf Urine WBC >182 H (0-5) /hpf Urine WBC Clumps Many H (None) /hpf Ur Squamous Epith Cells 2 (0-4) /hpf Urine Bacteria Few H (None) /hpf Urine Mucus Moderate H (None) /hpf Urine HCG, Qual Not Detected (Not Detectd) 11/21/19 11/21/19 Range/Units 21:09 21:09 WBC (3.8-10.6) k/uL RBC (3.80-5.40) m/uL Hgb (11.4-16.0) gm/dL Hct (34.0-46.0) % MCV (80.0-100.0) fL MCH (25.0-35.0) pg MCHC (31.0-37.0) g/dL RDW (11.5-15.5) % Plt Count (150-450) k/uL Neutrophils % % Lymphocytes % % Monocytes % % Eosinophils % % Basophils % % Neutrophils # (1.3-7.7) k/uL Lymphocytes # (1.0-4.8) k/uL Monocytes # (0-1.0) k/uL Eosinophils # (0-0.7) k/uL Basophils # (0-0.2) k/uL Sodium 135 L (137-145) mmol/L Potassium 3.8 (3.5-5.1) mmol/L Chloride 101 (98-107) mmol/L Carbon Dioxide 26 (22-30) mmol/L Anion Gap 8 mmol/L BUN 22 H (7-17) mg/dL Creatinine 0.76 (0.52-1.04) mg/dL Est GFR (CKD-EPI)AfAm >90 (>60 ml/min/1.73 sqM) Est GFR (CKD-EPI)NonAf >90 (>60 ml/min/1.73 sqM) Glucose 253 H (74-99) mg/dL Plasma Lactic Acid [place] 0.9 (0.7-2.0) mmol/L Calcium 10.0 (8.4-10.2) mg/dL Total Bilirubin 0.8 (0.2-1.3) mg/dL AST 26 (14-36) U/L ALT 24 (4-34) U/L Alkaline Phosphatase 66 (38-126) U/L Total Protein 7.1 (6.3-8.2) g/dL Albumin 4.0 (3.5-5.0) g/dL Lipase 81 (23-300) U/L Urine Color Urine Appearance (Clear) Urine pH (5.0-8.0) Ur Specific [place] (1.001-1.035) Urine Protein (Negative) Urine Glucose (UA) (Negative) Urine Ketones (Negative) Urine Blood (Negative) Urine Nitrite (Negative) Urine Bilirubin (Negative) Urine Urobilinogen (<2.0) mg/dL Ur Leukocyte Esterase (Negative) Urine RBC (0-5) /hpf Urine WBC (0-5) /hpf Urine WBC Clumps (None) /hpf Ur Squamous Epith Cells (0-4) /hpf Urine Bacteria (None) /hpf Urine Mucus (None) /hpf Urine HCG, Qual (Not Detectd) Disposition Clinical Impression: Uncontrolled diabetes mellitus, Abdominal pain, Urinary tract infection, Acute pyelonephritis Disposition: ADMITTED IP TO THIS HOSP Condition: Stable Is patient prescribed a controlled substance at d/c from ED?: No Decision to Admit Reason: Admit from EC Decision Date: 11/22/19 Decision Time: 01:04
[2019-11-22] MEDS ORDERED: GENTAMICIN 500 MG in SODIUM CHLORIDE 0.9% 100 ML IVPB ONE (01:15)
[2019-11-22] MEDS: SODIUM CHLORIDE 0.9% 1,000 ML IV SCH ×2 (01:53→03:36)
[2019-11-22] MEDS: oxyCODONE-APAP 10-325MG 1 EACH TAB PO SCH ×5 (01:53→22:01)
[2019-11-22] MEDS ORDERED: BACLOFEN 10 MG TAB PO PRN (02:04)
[2019-11-22] MEDS: MORPHINE SULFATE ER 15 MG TABLET PO SCH ×3 (02:18→21:22)
--- NOTE | 2019-11-22 02:25 | P.HPIM ---
History of Present Illness H&P Date: 11/22/19 Chief Complaint: left flank pain 44-year-old female with diabetes mellitus recurrent urinary tract infection and hypertension Patient comes in due to worsening left flank pain for the past 1 week she rates the pain as 8 out of 10 in severity not associated with any food or movement radiates downwards to her left groin associated was dysuria and frequency , she has long history of recurrent UTI she claims that since September every month she's been on at least 1 week course of antibiotics she will get relief for a few days and the symptoms happens again she is also been having heavy menstrual periods lasting 5 days and then within less than 2 weeks she'll get another. She is known to have fibroids. She otherwise denies any fevers or chills denies any chest pain or trouble breathing. She reports that today she had felt nauseous and had with an episode of vomiting nonbilious nonbloody She reports that she has multiple ALLERGIES to all antibiotics she is only able to take Macrobid as an outpatient and when severe infection not responding to antibiotics she would go to the hospital and get aztreonam In the ED she was afebrile no leukocytosis CT of the abdomen showed left mild hydronephrosis with possibly passing a stone and some left ureteral edema suggestive of UTI Review of Systems Pertinent positives as noted in HPI. 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 Date of last positivie culture/infection: 07/04/01 MDRO Source:: gallbladder Past Surgical History: Cholecystectomy, Hernia Repair Additional Past Surgical History / Comment(s): CATARACT SURGERY, kidney stents ; Colonoscopies, ventral hernia 08/02/17, Past Anesthesia/Blood Transfusion Reactions: No Reported Reaction Past Psychological History: Anxiety Smoking Status: Never smoker Past Alcohol Use History: None Reported Past Drug Use History: None Reported - Past Family History Father Family Medical History: No Reported History Mother Family Medical History: Cancer Additional Family Medical History / Comment(s): breast cancer (axilla location) dx at age 45. Maternal aunt dx with breast cancer @50, at age 54 from breast cancer Sister(s) Family Medical History: Cancer Additional Family Medical History / Comment(s): at age 8 from Leukemia, Medications and Allergies Home Medications Medication Instructions Recorded Confirmed Type Ferrous Sulfate [Iron (65 MG 325 mg PO DAILY 11/02/17 11/21/19 History Elemental)] Morphine Sulfate ER [Ms Contin] 15 mg PO BID 11/02/17 11/21/19 History glipiZIDE [Glucotrol] 10 mg PO BID 11/02/17 11/21/19 History Sennosides [Senna] 17.4 mg PO DAILY 11/16/17 11/21/19 History L.acidoph,Paracasei, B.lactis 1 cap PO DAILY 04/23/18 11/21/19 History [Probiotic] [place]-3 Fatty Acids [[place]-3] 1,000 mg PO DAILY 04/23/18 11/21/19 History oxyCODONE-APAP 10-325MG [Percocet 1 tab PO QID 04/23/18 11/21/19 History 10-325 mg] Pioglitazone [Actos] 30 mg PO DAILY 05/15/18 11/21/19 History Hydrochlorothiazide 25 mg PO DAILY 02/06/19 11/21/19 History Ascorbic Acid [Vitamin C] 500 mg PO DAILY 11/21/19 11/21/19 History Baclofen 10 mg PO BID PRN 11/21/19 11/21/19 History Beclomethasone Dip 80 Mcg/Puff 1 puff INHALATION RT-BID 11/21/19 11/21/19 History [Qvar 80 mcg] Cholecalciferol [Vitamin D3 (25 2,000 unit PO DAILY 11/21/19 11/21/19 History Mcg = 1000 Iu)] Cyanocobalamin (Vitamin B-12) 1,000 mcg PO DAILY 11/21/19 11/21/19 History [Vitamin B-12] Magnesium Oxide 400 mg PO DAILY 11/21/19 11/21/19 History Potassium Gluconate 99 mg PO DAILY 11/21/19 11/21/19 History valACYclovir HCL [Valacyclovir] 1,000 mg PO BID 11/21/19 11/21/19 History Allergies Allergy/AdvReac Type Severity Reaction Status Date / Time adhesive tape Allergy Severe Rash/Hives Verified 11/21/19 23:50 cortisone [Cortisone] Allergy Severe Anaphylaxis Verified 11/21/19 23:50 diphenhydramine HCl Allergy Severe Anaphylaxis Verified 11/21/19 23:50 [From Benadryl] Penicillins Allergy Severe Anaphylaxis Verified 11/21/19 23:50 Sulfa (Sulfonamide Allergy Intermediate Rash/Hives Verified 11/21/19 23:50 Antibiotics) Cephalosporins Allergy Mild Rash/Hives Verified 11/21/19 23:50 doxycycline Allergy Mild Rash/Hives Verified 11/21/19 23:50 Quinolones Allergy Mild Rash/Hives Verified 11/21/19 23:50 Iodine and Iodide Containing Allergy Unknown Verified 11/21/19 23:50 Produc Physical Exam Vitals: Vital Signs Temp Pulse Resp BP Pulse Ox 11/22/19 02:10 98.9 F 79 20 115/76 95 11/22/19 00:18 84 18 126/88 96 11/21/19 23:00 88 18 110/75 96 11/21/19 21:09 96 18 128/97 96 11/21/19 19:46 98.3 F 95 18 139/96 99 Intake and Output 11/21/19 11/21/19 11/22/19 14:59 22:59 06:59 Intake Total 20 Balance 20 Intake: Amount of Fluid Infused ( 20 ml) Other: Weight 156.036 kg Constitutional: No acute distress, conversant, pleasant Eyes: Anicteric sclerae, moist conjunctiva, no lid-lag Pupils equal round reactive to light ENMT: NC/AT Oropharynx clear, no erythema, exudates Neck: Supple, FROM, no masses, or JVD No carotid bruits No thyromegaly Lungs: Clear to auscultation Clear to percussion Normal respiratory effort, no accessory muscle use Cardiovascular: Heart regular in rate and rhythm, No murmurs, gallops, or rubs No peripheral edema Abdominal: Soft Left flank pain with tenderness to percussion over the left costovertebral angle,, no guarding, rebound or rigidity Abdomen moving with respiration Normoactive bowel sounds No hepatomegaly, No splenomegaly, obese limiting exam No palpable mass No abdominal wall hernia noted Skin: Normal temperature, tone, texture, turgor No induration No subcutaneous nodules No rash, lesions No ulcers Extremities: No digital cyanosis No clubbing Pedal pulses intact and symmetrical Radial pulses intact and symmetrical No calf tenderness Psychiatric: Alert and oriented to person, place and time Appropriate affect fair judgement Neuro Muscles Strength 5/5 in all 4 extremities Sensation to light touch grossly present throughout Cranial nerves II-XII grossly intact No focal sensory deficits Lymphatics: no palpable cervical or supraclavicular , or inguinal lymph nodes Results CBC & Chem 7: 11/21/19 21:09 11/21/19 21:09 Labs: Abnormal Lab Results - Last 24 Hours (Table) 11/21/19 11/21/19 Range/Units 19:52 21:09 Sodium 135 L (137-145) mmol/L BUN 22 H (7-17) mg/dL Glucose 253 H (74-99) mg/dL Urine Appearance Turbid H (Clear) Urine Protein 2+ H (Negative) Urine Ketones 1+ H (Negative) Urine Blood Moderate H (Negative) Ur Leukocyte Esterase Large H (Negative) Urine RBC 40 H (0-5) /hpf Urine WBC >182 H (0-5) /hpf Urine WBC Clumps Many H (None) /hpf Urine Bacteria Few H (None) /hpf Urine Mucus Moderate H (None) /hpf Assessment and Plan Assessment: Recurrent urinary tract infection Left hydronephrosis rule out ureteral stone Pain control IV fluid hydration with normal saline Due to multiple ALLERGIES to antibiotics patient received 1 dose of gentamicin, will await ID input in the morning regarding choice of antibiotics patient reports that in the past she tolerated aztreonam Monitor vital signs Monitor urine output Follow-up renal function Chronic conditions Diabetes mellitus, insulin sliding scale Hypertension on hydrochlorothiazide CODE STATUS: Full code DVT prophylaxis: Heparin subcu 3 times a day Discussed with: Patient, ER, RN Anticipated length of stay more than [address]: Home A total of 75 minutes was spent on the care of this complex patient more than 50% of the time was spent in counseling and care coordination.
[2019-11-22] MEDS: INSULIN ASPART (NovoLOG) 100 UNIT/ML VIAL SQ SCH ×5 (03:35→21:22)
[2019-11-22 06:31] LABS: Glucose,Whole Blood 200 mg/dL (75-99)
[2019-11-22 07:06] LABS: African American GFR (CKD) >90 (>60 ml/min/1.73 sqM); Anion Gap 8 mmol/L; Blood Urea Nitrogen 21 mg/dL (7-17); Calcium 8.5 mg/dL (8.4-10.2); Carbon Dioxide 20 mmol/L (22-30); Chloride 108 mmol/L (98-107); Glucose 187 mg/dL (74-99); Non-African American GFR(CKD) >90 (>60 ml/min/1.73 sqM); Sodium 136 mmol/L (137-145)
[2019-11-22] MEDS ORDERED: INSULIN ASPART (NovoLOG) 100 UNIT/ML VIAL SQ SCH (07:30)
[2019-11-22] MEDS: hydroCHLOROthiazide 25 MG TAB PO SCH (08:10)
[2019-11-22] MEDS: HEPARIN SODIUM,PORCINE 5,000 UNIT/ML 1 ML VIAL SQ SCH ×3 (08:10→23:51)
[2019-11-22] MEDS: valACYclovir HCL 1,000 MG TABLET PO SCH ×2 (08:11→21:25)
[2019-11-22] MEDS: SENNOSIDES 8.6 MG TAB PO SCH (08:16)
[2019-11-22 08:18] LABS: Basophils % (A) 1 %; Eosinophils % (A) 0 %; HCT 38.2 % (34.0-46.0); HGB 12.2 gm/dL (11.4-16.0); Hypochromasia Slight; Lymphocytes # (A) 1.6 k/uL (1.0-4.8); Lymphocytes % (A) 24 %; MCH 30.3 pg (25.0-35.0); MCHC 31.8 g/dL (31.0-37.0); MCV 95.3 fL (80.0-100.0); Mean Platelet Volume 8.9; Monocytes # (A) 0.5 k/uL (0-1.0); Monocytes % (A) 8 %; Neutrophils # (A) 4.2 k/uL (1.3-7.7); Neutrophils % (A) 65 %; Platelet Count 160 k/uL (150-450); RBC 4.01 m/uL (3.80-5.40); WBC 6.4 k/uL (3.8-10.6)
[2019-11-22] MEDS ORDERED: oxyCODONE-APAP 10-325MG 1 EACH TAB PO SCH (09:00)
[2019-11-22] MEDS ORDERED: NON FORMULARY DRUG (Potassium Gluconate [Potassium Gluconate] 99 MG) PO SCH (09:00)
[2019-11-22] MEDS ORDERED: MORPHINE SULFATE ER 15 MG TABLET PO SCH (09:00)
[2019-11-22] MEDS: FLUTICASONE 110 MCG INHALER INHALATION SCH ×2 (09:20→20:14)
[2019-11-22 12:00] VITALS: BMI 46.7
[2019-11-22 12:37] LABS: Glucose,Whole Blood 201 mg/dL (75-99)
[2019-11-22] MEDS: AZTREONAM 2 GM in SODIUM CHLORIDE 0.9% 100 ML IVPB SCH ×2 (12:44→23:50)
[2019-11-22 14:06] LABS: Glucose,Whole Blood 237 mg/dL (75-99)
--- NOTE | 2019-11-22 14:36 | P.GSCN ---
History of Present Illness Consult date: 11/22/19 History of present illness: The patient is a 44-year-old female with a 10 day history of bladder symptoms frequency urgency his dysuria and pressure and left-sided back pain. Patient has a known history of lower urinary tract symptoms, "recurrent urinary infection", kidney stones. 10 days ago she developed lower urinary tract symptoms as mentioned above. She went to her primary doctor's of the urinalysis looks good. A urine culture was obtained and when he came back she is referred to the urology she has most recently seen Dr. Paz from [facility]. She contacted his office but he was not available. She was directed to the emergency room. Emergency room identified dirty looking urine however there is a lot of epithelial cells. This could be a contaminated urine. The patient states that the symptoms seem to occur after her periods over the last 3 months. She does state that she has fibroids. She had a computed tomography scan of the abdomen which showed questionable mild hydronephrosis. There were no stones noted. She has not had fever. Her white count is normal. Review of Systems All systems: negative - Constitutional Denies fever, Denies weight loss - EENT Eyes: denies blurred vision Ears, nose, mouth and throat: Denies dysphagia - Cardiovascular Denies chest pain, Denies shortness of breath - Respiratory Denies cough, Denies 7 - Gastrointestinal Reports as per HPI - Genitourinary Genitourinary: Denies dysuria, Denies hematuria - Integumentary Denies rash, Denies unusual bruising - Neurological Denies headaches, Denies syncope - Hematologic/Lymphatic Denies easy bleeding, Denies easy bruising 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 Year Discovered:: 07/04/01 MDRO Source:: gallbladder Past Surgical History: Cholecystectomy, Hernia Repair Additional Past Surgical History / Comment(s): CATARACT SURGERY, kidney stents ; Colonoscopies, ventral hernia 08/02/17, Past Anesthesia/Blood Transfusion Reactions: No Reported Reaction Past Psychological History: Anxiety Smoking Status: Never smoker Past Alcohol Use History: None Reported Past Drug Use History: None Reported - Past Family History Father Family Medical History: No Reported History Mother Family Medical History: Cancer Additional Family Medical History / Comment(s): breast cancer (axilla location) dx at age 45. Maternal aunt dx with breast cancer @50, at age 54 from breast cancer Sister(s) Family Medical History: Cancer Additional Family Medical History / Comment(s): at age 8 from Leukemia, Medications and Allergies Home Medications Medication Instructions Recorded Confirmed Type Ferrous Sulfate [Iron (65 MG 325 mg PO DAILY 11/02/17 11/21/19 History Elemental)] Morphine Sulfate ER [Ms Contin] 15 mg PO BID 11/02/17 11/21/19 History glipiZIDE [Glucotrol] 10 mg PO BID 11/02/17 11/21/19 History Sennosides [Senna] 17.4 mg PO DAILY 11/16/17 11/21/19 History L.acidoph,Paracasei, B.lactis 1 cap PO DAILY 04/23/18 11/21/19 History [Probiotic] [place]-3 Fatty Acids [[place]-3] 1,000 mg PO DAILY 04/23/18 11/21/19 History oxyCODONE-APAP 10-325MG [Percocet 1 tab PO QID 04/23/18 11/21/19 History 10-325 mg] Pioglitazone [Actos] 30 mg PO DAILY 05/15/18 11/21/19 History Hydrochlorothiazide 25 mg PO DAILY 02/06/19 11/21/19 History Ascorbic Acid [Vitamin C] 500 mg PO DAILY 11/21/19 11/21/19 History Baclofen 10 mg PO BID PRN 11/21/19 11/21/19 History Beclomethasone Dip 80 Mcg/Puff 1 puff INHALATION RT-BID 11/21/19 11/21/19 History [Qvar 80 mcg] Cholecalciferol [Vitamin D3 (25 2,000 unit PO DAILY 11/21/19 11/21/19 History Mcg = 1000 Iu)] Cyanocobalamin (Vitamin B-12) 1,000 mcg PO DAILY 11/21/19 11/21/19 History [Vitamin B-12] Magnesium Oxide 400 mg PO DAILY 11/21/19 11/21/19 History Potassium Gluconate 99 mg PO DAILY 11/21/19 11/21/19 History valACYclovir HCL [Valacyclovir] 1,000 mg PO BID 11/21/19 11/21/19 History Allergies Allergy/AdvReac Type Severity Reaction Status Date / Time adhesive tape Allergy Severe Rash/Hives Verified 11/21/19 23:50 cortisone [Cortisone] Allergy Severe Anaphylaxis Verified 11/21/19 23:50 diphenhydramine HCl Allergy Severe Anaphylaxis Verified 11/21/19 23:50 [From Benadryl] Penicillins Allergy Severe Anaphylaxis Verified 11/21/19 23:50 Sulfa (Sulfonamide Allergy Intermediate Rash/Hives Verified 11/21/19 23:50 Antibiotics) Cephalosporins Allergy Mild Rash/Hives Verified 11/21/19 23:50 doxycycline Allergy Mild Rash/Hives Verified 11/21/19 23:50 Quinolones Allergy Mild Rash/Hives Verified 11/21/19 23:50 [place] And Derivatives Allergy Rash/Hives Verified 11/22/19 02:55 [[place]] Iodine and Iodide Containing Allergy Unknown Verified 11/21/19 23:50 Produc Surgical - Exam Vital Signs Temp Pulse Resp BP Pulse Ox 98.3 F 95 18 139/96 99 11/21/19 19:46 11/21/19 19:46 11/21/19 19:46 11/21/19 19:46 11/21/19 19:46 - General well developed, well nourished, no distress, obese - Eyes PERRL - ENT no hearing loss - Neck trachea midline - Respiratory normal expansion, normal respiratory effort - Cardiovascular Rhythm: regular - Abdomen Abdomen: soft, non tender - Integumentary no rash, no growths - Neurologic normal coordination, normal sensation - Musculoskeletal normal posture - Psychiatric oriented to time, oriented to person, oriented to place, speech is normal, memory intact Results - Labs 11/22/19 06:17 11/22/19 06:17 Abnormal Lab Results - Last 24 Hours (Table) 11/21/19 11/21/19 11/22/19 Range/Units 19:52 21:09 03:07 Sodium 135 L (137-145) mmol/L Chloride (98-107) mmol/L Carbon Dioxide (22-30) mmol/L BUN 22 H (7-17) mg/dL Glucose 253 H (74-99) mg/dL POC Glucose (mg/dL) 237 H (75-99) mg/dL Urine Appearance Turbid H (Clear) Urine Protein 2+ H (Negative) Urine Ketones 1+ H (Negative) Urine Blood Moderate H (Negative) Ur Leukocyte Esterase Large H (Negative) Urine RBC 40 H (0-5) /hpf Urine WBC >182 H (0-5) /hpf Urine WBC Clumps Many H (None) /hpf Urine Bacteria Few H (None) /hpf Urine Mucus Moderate H (None) /hpf 11/22/19 11/22/19 11/22/19 Range/Units 06:17 06:30 12:34 Sodium 136 L (137-145) mmol/L Chloride 108 H (98-107) mmol/L Carbon Dioxide 20 L (22-30) mmol/L BUN 21 H (7-17) mg/dL Glucose 187 H (74-99) mg/dL POC Glucose (mg/dL) 200 H 201 H (75-99) mg/dL Urine Appearance (Clear) Urine Protein (Negative) Urine Ketones (Negative) Urine Blood (Negative) Ur Leukocyte Esterase (Negative) Urine RBC (0-5) /hpf Urine WBC (0-5) /hpf Urine WBC Clumps (None) /hpf Urine Bacteria (None) /hpf Urine Mucus (None) /hpf Microbiology - Last 24 Hours (Table) 11/21/19 19:52 Urine Culture - Preliminary Urine,Voided Diabetes panel 11/21/19 11/22/19 Range/Units 21:09 06:17 Sodium 135 L 136 L (137-145) mmol/L Potassium 3.8 4.0 (3.5-5.1) mmol/L Chloride 101 108 H (98-107) mmol/L Carbon Dioxide 26 20 L (22-30) mmol/L BUN 22 H 21 H (7-17) mg/dL Creatinine 0.76 0.59 (0.52-1.04) mg/dL Glucose 253 H 187 H (74-99) mg/dL Calcium 10.0 8.5 (8.4-10.2) mg/dL AST 26 (14-36) U/L ALT 24 (4-34) U/L Alkaline Phosphatase 66 (38-126) U/L Total Protein 7.1 (6.3-8.2) g/dL Albumin 4.0 (3.5-5.0) g/dL Calcium panel 07/09/20 07/10/20 Range/Units 21:09 06:17 Calcium 10.0 8.5 (8.4-10.2) mg/dL Albumin 4.0 (3.5-5.0) g/dL Pituitary panel 11/21/19 11/22/19 Range/Units 21:09 06:17 Sodium 135 L 136 L (137-145) mmol/L Potassium 3.8 4.0 (3.5-5.1) mmol/L Chloride 101 108 H (98-107) mmol/L Carbon Dioxide 26 20 L (22-30) mmol/L BUN 22 H 21 H (7-17) mg/dL Creatinine 0.76 0.59 (0.52-1.04) mg/dL Glucose 253 H 187 H (74-99) mg/dL Calcium 10.0 8.5 (8.4-10.2) mg/dL Adrenal panel 11/21/19 11/22/19 Range/Units 21:09 06:17 Sodium 135 L 136 L (137-145) mmol/L Potassium 3.8 4.0 (3.5-5.1) mmol/L Chloride 101 108 H (98-107) mmol/L Carbon Dioxide 26 20 L (22-30) mmol/L BUN 22 H 21 H (7-17) mg/dL Creatinine 0.76 0.59 (0.52-1.04) mg/dL Glucose 253 H 187 H (74-99) mg/dL Calcium 10.0 8.5 (8.4-10.2) mg/dL Total Bilirubin 0.8 (0.2-1.3) mg/dL AST 26 (14-36) U/L ALT 24 (4-34) U/L Alkaline Phosphatase 66 (38-126) U/L Total Protein 7.1 (6.3-8.2) g/dL Albumin 4.0 (3.5-5.0) g/dL - Imaging CT scan - abdomen: report reviewed, image reviewed CT scan - pelvis: report reviewed, image reviewed Assessment and Plan Assessment: Impression: Lower urinary tract symptoms possible bladder infection. Chronic and acute back pain. Notable HEALTH TECHNICIAN symptoms. Multiple medical illnesses include diabetes obesity fibromyalgia. History of kidney stones. Recommendations: It is not clear to me as to whether for certain this patient has had a urine infection. This was not a catheterized urine. He is morbidly obese therefore vaginal contamination is very likely. Reviewed CAT scan and see no significant hydronephrosis or stones. We'll see what the culture shows. If her symptoms don't clear and the culture is negative she may need HEALTH TECHNICIAN consultation to see if there is any gynecologic reason for this discomfort.
[2019-11-22 17:48] LABS: Glucose,Whole Blood 213 mg/dL (75-99)
--- NOTE | 2019-11-22 18:50 | P.PN ---
Subjective Progress Note Date: 11/22/19 (delayed charting seen at 0845) Principal diagnosis: abdominal pain Patient is a 44 yo female with a past medical history of diabetes mellitus, recurrent urinary tract infection, fibromyalgia, hypertension, and seizure disorder who presented with one-week duration of left flank pain. In the ER she underwent an extensive evaluation. She was found to have urinary tract infection with mild left-sided hydronephrosis on computed tomography scan. She was started on IV fluids, she was given 1 dose of gentamicin secondary to history of ALLERGIES, and she was admitted for further monitoring. Patient had noticed her urinary tract infection approximately one week prior. She got in to see her primary care physician Dr. You and was placed on Macrobid. She states this is the only oral antibiotic to which she is not ALLERGIC. She reports all other antibiotics cause reactions from difficulty in breathing to rash and hives. She reports that she is ALLERGIC to Benadryl. Of note she states that she has been suffering from a urinary tract infection since September of this year and has been on one week of Macrobid every month for the last 3 months. She does state that she has been having some difficulty with her menstrual cycle. She reports that she has been having heavy menstruation and they have been more frequent. She feels as though she gets a urinary tract infection every time her menstrual cycle ends. Patient seen and examined at bedside. We had a lengthy discussion regarding the fact that she likely is having some chronic cystitis-type changes and/or vaginal changes with the recurrent nature of this infection. She does appear to have a urinary tract infection at this time as her white blood cell count was greater than 180 along with symptoms. However I told her will be important to follow up with LOCKER ATTENDANT after discharge for further evaluation of her known uterine fibroids and possible vaginal atrophy or chronic cystitis. Infectious disease will see her. We also discussed the importance of her seeing a allergists to discuss possible antibiotic desensitization treatment. She does feel though her pain is somewhat better today. No nausea, vomiting, or diarrhea. Objective - Vital Signs Vital signs: Vital Signs Temp 97.4 F L 11/22/19 16:40 Pulse 90 11/22/19 16:40 Resp 20 11/22/19 16:40 BP 131/84 11/22/19 16:40 Pulse Ox 97 11/22/19 16:40 Intake & Output 11/21/19 11/22/19 11/22/19 18:59 06:59 18:59 Intake Total 870 Balance 870 Weight 160.6 kg 160.6 kg Intake: Amount of Fluid Infused ( 20 ml) Intake, IV Titration 550 Amount Gentamicin 500 mg In 100 Sodium Chloride 0.9% 100 ml @ 112.5 mls/hr IVPB ONCE ONE Rx#:[id number] Sodium Chloride 0.9% 1, 450 000 ml @ 150 mls/hr IV . Q6H40M [facility] Rx#:[id number] Oral 300 Other: Voiding Method Toilet Toilet # Voids 1 1 - Exam General: Ill-appearing, no distress, appears at stated age, obese Derm: warm, dry Head: atraumatic, normocephalic, symmetric Eyes: EOMI, no lid lag, anicteric sclera Mouth: no lip lesion, mucus membranes moist Cardiovascular: S1S2 reg, no murmur, positive posterior tibial pulse bilateral, Lungs: CTA bilateral, no rhonchi, no rales , no accessory muscle use Abdominal: soft, nontender to palpation, no guarding, no appreciable organomegaly Ext: no gross muscle atrophy, nonpitting edema, no contractures Neuro: CN II-XI grossly intact, no focal neuro deficits Psych: Alert, oriented, appropriate affect - Labs CBC & Chem 7: 11/22/19 06:17 11/22/19 06:17 Labs: Abnormal Lab Results - Last 24 Hours (Table) 11/21/19 11/21/19 11/22/19 Range/Units 19:52 21:09 03:07 Sodium 135 L (137-145) mmol/L Chloride (98-107) mmol/L Carbon Dioxide (22-30) mmol/L BUN 22 H (7-17) mg/dL Glucose 253 H (74-99) mg/dL POC Glucose (mg/dL) 237 H (75-99) mg/dL Urine Appearance Turbid H (Clear) Urine Protein 2+ H (Negative) Urine Ketones 1+ H (Negative) Urine Blood Moderate H (Negative) Ur Leukocyte Esterase Large H (Negative) Urine RBC 40 H (0-5) /hpf Urine WBC >182 H (0-5) /hpf Urine WBC Clumps Many H (None) /hpf Urine Bacteria Few H (None) /hpf Urine Mucus Moderate H (None) /hpf 11/22/19 11/22/19 11/22/19 Range/Units 06:17 06:30 12:34 Sodium 136 L (137-145) mmol/L Chloride 108 H (98-107) mmol/L Carbon Dioxide 20 L (22-30) mmol/L BUN 21 H (7-17) mg/dL Glucose 187 H (74-99) mg/dL POC Glucose (mg/dL) 200 H 201 H (75-99) mg/dL Urine Appearance (Clear) Urine Protein (Negative) Urine Ketones (Negative) Urine Blood (Negative) Ur Leukocyte Esterase (Negative) Urine RBC (0-5) /hpf Urine WBC (0-5) /hpf Urine WBC Clumps (None) /hpf Urine Bacteria (None) /hpf Urine Mucus (None) /hpf Microbiology - Last 24 Hours (Table) 11/21/19 19:52 Urine Culture - Preliminary Urine,Voided Assessment and Plan Assessment: Urinary tract infection, present on admission, not catheter associated, failed outpatient treatment and associated with mild left hydronephrosis -Await ID regarding antibiotic rocks as patient has multiple ALLERGIES. She already received 1 dose of gentamicin but states she can only tolerate a few doses of this prior to reacting. She is asking for aztreonam. -IV fluids -Pain control -Await culture -Urology recs appreciated -If concern for possible component of chronic cystitis or vaginitis due to the frequency of her symptoms as well as varus finding at the end of her menstrual cycle. Metromenorrhagia -Outpatient follow-up with her LOCKER ATTENDANT Diabetes mellitus type 2 Hypertension Morbid obesity with BMI 46.7 -Outpatient structured weight loss Chronic conditions: Fibromyalgia, foot DVT prophylaxis: Heparin Discussed with: Patient, nursing Anticipated discharge: 2-[address]: home A total of 25 minutes was spent on the care of this complex patient more than 50% of the time was spent in counseling and care coordination.
[2019-11-22 21:20] LABS: Glucose,Whole Blood 249 mg/dL (75-99)
--- NOTE | 2019-11-23 00:15 | P.CONS ---
History of Present Illness - Reason for Consult Consult date: 11/22/19 Urinary tract infection and multiple antibiotic ALLERGIES Requesting physician: Brennon Rogel - Chief Complaint Left flank pain burning urine x few days - History of Present Illness Patient is a 44-year-old morbidly obese female in this patient with a history of recurrent urinary tract infection and multiple antibiotic ALLERGIES, patient presented to the ER yesterday with a chief complaints of left flank pain is more of a dull aching to sharp about 6-7 out of 10 and no radiation is also complaining of urinary burning and frequency but no hematuria and some suprapu bic discomfort patient did have some chills and low-grade fever at home and apparently the patient has been treated in outpatient setting with oral Macrobid without any improvement in her symptoms patient on arrival to the ER has been afebrile she did have a normal white count patient did have a CT of abdominal pelvis CT shows mild left-sided hydronephrosis and hydroureter with periuretheral edema , patient received a dose of gentamicin In the ER because of her multiple antibiotics ALLERGIES she was admitted to the hospital infectious disease was consulted for further management of antibiotic therapy Review of Systems Positive point has been mentioned in the HPI rest of the systems are negative 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 Year Discovered:: 07/04/01 MDRO Source:: gallbladder Past Surgical History: Cholecystectomy, Hernia Repair Additional Past Surgical History / Comment(s): CATARACT SURGERY, kidney stents ; Colonoscopies, ventral hernia 08/02/17, Past Anesthesia/Blood Transfusion Reactions: No Reported Reaction Past Psychological History: Anxiety Smoking Status: Never smoker Past Alcohol Use History: None Reported Past Drug Use History: None Reported - Past Family History Father Family Medical History: No Reported History Mother Family Medical History: Cancer Additional Family Medical History / Comment(s): breast cancer (ax[place] location) dx at age 45. Maternal aunt dx with breast cancer @50, at age 54 from breast cancer Sister(s) Family Medical History: Cancer Additional Family Medical History / Comment(s): at age 8 from Leukemia, Medications and Allergies Home Medications Medication Instructions Recorded Confirmed Type Ferrous Sulfate [Iron (65 MG 325 mg PO DAILY 11/02/17 11/21/19 History Elemental)] Morphine Sulfate ER [Ms Contin] 15 mg PO BID 11/02/17 11/21/19 History glipiZIDE [Glucotrol] 10 mg PO BID 11/02/17 11/21/19 History Sennosides [Senna] 17.4 mg PO DAILY 11/16/17 11/21/19 History L.acidoph,Paracasei, B.lactis 1 cap PO DAILY 04/23/18 11/21/19 History [Probiotic] [place]-3 Fatty Acids [[place]-3] 1,000 mg PO DAILY 04/23/18 11/21/19 History oxyCODONE-APAP 10-325MG [Percocet 1 tab PO QID 04/23/18 11/21/19 History 10-325 mg] Pioglitazone [Actos] 30 mg PO DAILY 05/15/18 11/21/19 History Hydrochlorothiazide 25 mg PO DAILY 02/06/19 11/21/19 History Ascorbic Acid [Vitamin C] 500 mg PO DAILY 11/21/19 11/21/19 History Baclofen 10 mg PO BID PRN 11/21/19 11/21/19 History Beclomethasone Dip 80 Mcg/Puff 1 puff INHALATION RT-BID 11/21/19 11/21/19 History [Qvar 80 mcg] Cholecalciferol [Vitamin D3 (25 2,000 unit PO DAILY 11/21/19 11/21/19 History Mcg = 1000 Iu)] Cyanocobalamin (Vitamin B-12) 1,000 mcg PO DAILY 11/21/19 11/21/19 History [Vitamin B-12] Magnesium Oxide 400 mg PO DAILY 11/21/19 11/21/19 History Potassium Gluconate 99 mg PO DAILY 11/21/19 11/21/19 History valACYclovir HCL [Valacyclovir] 1,000 mg PO BID 11/21/19 11/21/19 History Allergies Allergy/AdvReac Type Severity Reaction Status Date / Time adhesive tape Allergy Severe Rash/Hives Verified 11/21/19 23:50 cortisone [Cortisone] Allergy Severe Anaphylaxis Verified 11/21/19 23:50 diphenhydramine HCl Allergy Severe Anaphylaxis Verified 11/21/19 23:50 [From Benadryl] Penicillins Allergy Severe Anaphylaxis Verified 11/21/19 23:50 Sulfa (Sulfonamide Allergy Intermediate Rash/Hives Verified 11/21/19 23:50 Antibiotics) Cephalosporins Allergy Mild Rash/Hives Verified 11/21/19 23:50 doxycycline Allergy Mild Rash/Hives Verified 11/21/19 23:50 Quinolones Allergy Mild Rash/Hives Verified 11/21/19 23:50 [place] And Derivatives Allergy Rash/Hives Verified 11/22/19 02:55 [[place]] Iodine and Iodide Containing Allergy Unknown Verified 11/21/19 23:50 Produc Physical Exam Vitals: Vital Signs Temp Pulse Pulse Resp BP BP Pulse Ox 11/22/19 08:27 98.1 F 87 18 97/66 94 L 11/22/19 02:10 98.9 F 79 20 115/76 95 11/22/19 01:04 97.9 F 80 18 115/81 99 11/22/19 00:18 84 18 126/88 96 11/21/19 23:00 88 18 110/75 96 11/21/19 21:09 96 18 128/97 96 11/21/19 19:46 98.3 F 95 18 139/96 99 Intake and Output 11/21/19 11/22/19 11/22/19 22:59 06:59 14:59 Intake Total 870 Balance 870 Intake: Amount of Fluid Infused ( 20 ml) Intake, IV Titration 550 Amount Gentamicin 500 mg In 100 Sodium Chloride 0.9% 100 ml @ 112.5 mls/hr IVPB ONCE ONE Rx#:[id number] Sodium Chloride 0.9% 1, 450 000 ml @ 150 mls/hr IV . Q6H40M [facility] Rx#:[id number] Oral 300 Other: Voiding Method Toilet Toilet # Voids 1 1 Weight 156.036 kg 160.6 kg 160.6 kg GENERAL DESCRIPTION: Middle-aged female lying in bed, no distress. No tachypnea or accessory muscle of respiration use. HEENT: Shows Pallor , no scleral icterus. Oral mucous membrane is dry. No pharyngeal erythema or thrush NECK: Trachea central, no thyromegaly. LUNGS: Unlabored breathing. Clear to auscultation anteriorly. No wheeze or crackle. HEART: S1, S2, regular rate and rhythm. No loud murmur ABDOMEN: Soft, no tenderness , guarding or rigidity, no organomegaly EXTREMITIES: No edema of feet. SKIN: No rash, no masses palpable. NEUROLOGICAL: The patient is awake, alert, oriented x3, mood and affect normal. Results CBC & Chem 7: 11/22/19 06:17 11/22/19 06:17 Labs: Abnormal Lab Results - Last 24 Hours (Table) 11/21/19 11/21/19 11/22/19 Range/Units 19:52 21:09 06:17 Sodium 135 L 136 L (137-145) mmol/L Chloride 108 H (98-107) mmol/L Carbon Dioxide 20 L (22-30) mmol/L BUN 22 H 21 H (7-17) mg/dL Glucose 253 H 187 H (74-99) mg/dL POC Glucose (mg/dL) (75-99) mg/dL Urine Appearance Turbid H (Clear) Urine Protein 2+ H (Negative) Urine Ketones 1+ H (Negative) Urine Blood Moderate H (Negative) Ur Leukocyte Esterase Large H (Negative) Urine RBC 40 H (0-5) /hpf Urine WBC >182 H (0-5) /hpf Urine WBC Clumps Many H (None) /hpf Urine Bacteria Few H (None) /hpf Urine Mucus Moderate H (None) /hpf 11/22/19 Range/Units 06:30 Sodium (137-145) mmol/L Chloride (98-107) mmol/L Carbon Dioxide (22-30) mmol/L BUN (7-17) mg/dL Glucose (74-99) mg/dL POC Glucose (mg/dL) 200 H (75-99) mg/dL Urine Appearance (Clear) Urine Protein (Negative) Urine Ketones (Negative) Urine Blood (Negative) Ur Leukocyte Esterase (Negative) Urine RBC (0-5) /hpf Urine WBC (0-5) /hpf Urine WBC Clumps (None) /hpf Urine Bacteria (None) /hpf Urine Mucus (None) /hpf Microbiology - Last 24 Hours (Table) 11/21/19 19:52 Urine Culture - Preliminary Urine,Voided Assessment and Plan Assessment: 1- patient presented to the hospital with left flank pain urinary burning frequency and suprapubic discomfort in this patient who did have history of recurrent urinary tract infection recently has been on oral Macrobid with evidence of positive UA and abdominal CT suggestive of left-sided hydronephrosis likely complicated urinary tract infection 2-Patient with multiple antibiotic ALLERGIES that would limit the number of antibiotic safe to use (1) Allergy to multiple antibiotics Current Visit: Yes Status: Acute Code(s): Z88.1 - ALLERGY STATUS TO OTHER ANTIBIOTIC AGENTS STATUS SNOMED Code(s): 154663431 (2) Urinary tract infection Current Visit: Yes Status: Acute Code(s): N39.0 - URINARY TRACT INFECTION, SITE NOT SPECIFIED SNOMED Code(s): 04867793 (3) Failure of outpatient treatment Current Visit: No Status: Acute Code(s): Z78.9 - OTHER SPECIFIED HEALTH STATUS SNOMED Code(s): 703985564 Plan: 1- we will start the patient on Azactam 2 g every 12 hours 2- gentle IV fluid We will follow on clinical condition and cultures to further adjust medication if needed Thank you for this consultation will follow this patient with you Time with Patient: Greater than 30
[2019-11-23] MEDS: SODIUM CHLORIDE 0.9% 1,000 ML IV SCH ×2 (06:25→21:41)
[2019-11-23] MEDS: INSULIN ASPART (NovoLOG) 100 UNIT/ML VIAL SQ SCH ×4 (06:25→21:35)
[2019-11-23 06:32] LABS: Glucose,Whole Blood 225 mg/dL (75-99)
[2019-11-23 07:31] LABS: Basophils % (A) 1 %; Eosinophils % (A) 1 %; HGB 12.4 gm/dL (11.4-16.0); Lymphocytes # (A) 0.9 k/uL (1.0-4.8); Lymphocytes % (A) 18 %; MCHC 31.8 g/dL (31.0-37.0); MCV 91.2 fL (80.0-100.0); Mean Platelet Volume 8.8; Monocytes # (A) 0.4 k/uL (0-1.0); Monocytes % (A) 7 %; Neutrophils # (A) 3.8 k/uL (1.3-7.7); Neutrophils % (A) 72 %; Platelet Count 192 k/uL (150-450); RBC 4.28 m/uL (3.80-5.40); RDW 12.8 % (11.5-15.5); WBC 5.2 k/uL (3.8-10.6)
[2019-11-23 07:57] LABS: African American GFR (CKD) >90 (>60 ml/min/1.73 sqM); Anion Gap 7 mmol/L; Blood Urea Nitrogen 14 mg/dL (7-17); Calcium 8.6 mg/dL (8.4-10.2); Carbon Dioxide 25 mmol/L (22-30); Chloride 103 mmol/L (98-107); Glucose 231 mg/dL (74-99); Non-African American GFR(CKD) >90 (>60 ml/min/1.73 sqM); Sodium 135 mmol/L (137-145)
[2019-11-23] MEDS: FLUTICASONE 110 MCG INHALER INHALATION SCH ×2 (08:04→19:37)
[2019-11-23] MEDS: HEPARIN SODIUM,PORCINE 5,000 UNIT/ML 1 ML VIAL SQ SCH ×2 (09:06→15:58)
[2019-11-23] MEDS: oxyCODONE-APAP 10-325MG 1 EACH TAB PO SCH ×4 (09:07→22:27)
[2019-11-23] MEDS: hydroCHLOROthiazide 25 MG TAB PO SCH (09:07)
[2019-11-23] MEDS: MORPHINE SULFATE ER 15 MG TABLET PO SCH ×2 (09:07→21:24)
[2019-11-23] MEDS: PIOGLITAZONE 30 MG TAB PO SCH (09:08)
[2019-11-23] MEDS: valACYclovir HCL 1,000 MG TABLET PO SCH ×2 (09:08→21:26)
[2019-11-23] MEDS: glipiZIDE 10 MG TAB PO SCH ×2 (09:08→20:17)
[2019-11-23] MEDS: SENNOSIDES 8.6 MG TAB PO SCH (09:08)
[2019-11-23 12:59] LABS: Glucose,Whole Blood 136 mg/dL (75-99)
[2019-11-23] MEDS: AZTREONAM 2 GM in SODIUM CHLORIDE 0.9% 100 ML IVPB SCH (13:09)
--- NOTE | 2019-11-23 16:56 | PN ---
PROGRESS NOTE DATE OF SERVICE: 11/23/2019 REASON FOR FOLLOWUP: UTI and question of pyelonephritis. INTERVAL HISTORY: The patient is currently afebrile. She is complaining of pain to the left leg area. No chest pain. No shortness of breath or cough. No abdominal pain or diarrhea. EXAMINATION: Blood pressure 110/73 with a pulse of 95, temperature 98.6. She is 95% on room air. General description is a middle-aged female lying in bed in no distress. Respiratory system: Unlabored breathing, clear to auscultation anteriorly. Heart S1, S2. Regular rate and rhythm. Abdomen soft, no tenderness. LABS: White count 5.2. Urine showing a Gram-negative. DIAGNOSTIC IMPRESSION AND PLAN: Patient with Gram-negative urinary tract infection. This patient did have multiple antibiotic allergies. Patient is currently on Azactam to continue while waiting for the culture to finalize and monitor clinical course closely. MMODL / IJN: [id number] /
[2019-11-23 17:44] LABS: Glucose,Whole Blood 105 mg/dL (75-99)
[2019-11-23 21:33] LABS: Glucose,Whole Blood 246 mg/dL (75-99)
[2019-11-24] MEDS: HEPARIN SODIUM,PORCINE 5,000 UNIT/ML 1 ML VIAL SQ SCH ×2 (00:50→09:03)
[2019-11-24] MEDS: AZTREONAM 2 GM in SODIUM CHLORIDE 0.9% 100 ML IVPB SCH ×2 (00:51→11:35)
[2019-11-24 06:33] LABS: Glucose,Whole Blood 100 mg/dL (75-99)
[2019-11-24] MEDS: INSULIN ASPART (NovoLOG) 100 UNIT/ML VIAL SQ SCH ×2 (06:33→12:42)
[2019-11-24] MEDS: glipiZIDE 10 MG TAB PO SCH (06:49)
--- NOTE | 2019-11-24 07:46 | P.PN ---
Subjective Progress Note Date: 11/23/19 (delayed charting seen at 0830) Principal diagnosis: abdominal pain Patient is a 44 yo female with a past medical history of diabetes mellitus, recurrent urinary tract infection, fibromyalgia, hypertension, and seizure disorder who presented with one-week duration of left flank pain. In the ER she underwent an extensive evaluation. She was found to have urinary tract infection with mild left-sided hydronephrosis on computed tomography scan. She was started on IV fluids, she was given 1 dose of gentamicin secondary to history of ALLERGIES, and she was admitted for further monitoring. Patient had noticed her urinary tract infection approximately one week prior. She got in to see her primary care physician Dr. You and was placed on Macrobid. She states this is the only oral antibiotic to which she is not ALLERGIC. She reports all other antibiotics cause reactions from difficulty in breathing to rash and hives. She reports that she is ALLERGIC to Benadryl. Of note she states that she has been suffering from a urinary tract infection since September of this year and has been on one week of Macrobid every month for the last 3 months. She does state that she has been having some difficulty with her menstrual cycle. She reports that she has been having heavy menstruation and they have been more frequent. She feels as though she gets a urinary tract infection every time her menstrual cycle ends. She was seen by urology who agreed with possible bladder infection and that patient needs ELECTRONIC WARFARE TECHNICIAN evaluation. Seen by Dr. Peraza who placed the patient on azactam. Her uriney culture came back wtih gram negative bacilli. Patient seen and examined at bedside. Feeling slightly better today, some less pain, no nausea, no vomiting, no diarrhea. Objective - Vital Signs Vital signs: Vital Signs Temp 97.7 F 11/23/19 16:04 Pulse 89 11/23/19 16:04 Resp 18 11/23/19 16:04 BP 118/83 11/23/19 16:04 Pulse Ox 98 11/23/19 16:04 Intake & Output 11/22/19 11/23/19 11/23/19 18:59 06:59 18:59 Weight 160.6 kg Other: Voiding Method Toilet Toilet # Voids 1 1 - Exam General: Ill-appearing, no distress, appears at stated age, obese Derm: warm, dry Head: atraumatic, normocephalic, symmetric Eyes: EOMI, no lid lag, anicteric sclera Mouth: no lip lesion, mucus membranes moist Cardiovascular: S1S2 reg, no murmur, positive posterior tibial pulse bilateral, Lungs: CTA bilateral, no rhonchi, no rales , no accessory muscle use Abdominal: soft, +tender to palpation left CVA, no guarding, no appreciable organomegaly Ext: no gross muscle atrophy, nonpitting edema, no contractures Neuro: CN II-XI grossly intact, no focal neuro deficits Psych: Alert, oriented, appropriate affect - Labs CBC & Chem 7: 11/23/19 07:05 11/23/19 07:05 Labs: Abnormal Lab Results - Last 24 Hours (Table) 11/22/19 11/22/19 11/23/19 Range/Units 17:46 21:04 06:19 Lymphocytes # (1.0-4.8) k/uL Sodium (137-145) mmol/L Glucose (74-99) mg/dL POC Glucose (mg/dL) 213 H 249 H 225 H (75-99) mg/dL 11/23/19 11/23/19 11/23/19 Range/Units 07:05 07:05 12:58 Lymphocytes # 0.9 L (1.0-4.8) k/uL Sodium 135 L (137-145) mmol/L Glucose 231 H (74-99) mg/dL POC Glucose (mg/dL) 136 H (75-99) mg/dL Microbiology - Last 24 Hours (Table) 11/22/19 00:49 Blood Culture - Preliminary Blood No Growth after 24 hours 11/21/19 19:52 Urine Culture - Preliminary Urine,Voided Gram Neg Bacilli Assessment and Plan Assessment: Urinary tract infection, present on admission, not catheter associated, failed outpatient treatment and associated with mild left hydronephrosis -Await ID regarding antibiotic rocks as patient has multiple ALLERGIES. She already received 1 dose of gentamicin but states she can only tolerate a few doses of this prior to reacting. She is asking for aztreonam. -IV fluids -Pain control -Await culture -Urology recs appreciated -If concern for possible component of chronic cystitis or vaginitis due to the frequency of her symptoms as well as varus finding at the end of her menstrual cycle. Metromenorrhagia -Outpatient follow-up with her DESIGN SUPERVISOR Diabetes mellitus type 2 Hypertension Morbid obesity with BMI 46.7 -Outpatient structured weight loss Chronic conditions: Fibromyalgia DVT prophylaxis: Heparin Discussed with: Patient, nursing Anticipated discharge: 2-[address]: home A total of 25 minutes was spent on the care of this complex patient more than 50% of the time was spent in counseling and care coordination.
[2019-11-24] MEDS: FLUTICASONE 110 MCG INHALER INHALATION SCH (07:58)
[2019-11-24] MEDS: SODIUM CHLORIDE 0.9% 1,000 ML IV SCH (09:03)
[2019-11-24] MEDS: PIOGLITAZONE 30 MG TAB PO SCH (09:04)
[2019-11-24] MEDS: oxyCODONE-APAP 10-325MG 1 EACH TAB PO SCH ×2 (09:04→12:49)
[2019-11-24] MEDS: MORPHINE SULFATE ER 15 MG TABLET PO SCH (09:04)
[2019-11-24] MEDS: hydroCHLOROthiazide 25 MG TAB PO SCH (09:04)
[2019-11-24] MEDS: SENNOSIDES 8.6 MG TAB PO SCH (09:04)
[2019-11-24] MEDS: valACYclovir HCL 1,000 MG TABLET PO SCH (09:04)
[2019-11-24 09:25] VITALS: BP 108/74; PULSE 87; RESP 18; TEMP 98.7
--- NOTE | 2019-11-24 10:11 | P.DS ---
Providers Date of admission: 11/22/19 01:04 Expected date of discharge: 11/24/19 Attending physician: Brennon Rogel MD Consults: 11/22/19 01:05 Consult Physician Urgent Consulting Provider: Christiano Davison Consult Reason/Comments: acute pyelonephritis, recurrent utis Do you want consulting provider notified?: Yes Consult Physician Urgent Consulting Provider: Cindy Peraza Consult Reason/Comments: acute pyelonephritis, hx multiple uti, multiple drug allergies Do you want consulting provider notified?: Yes Primary care physician: Marleny Farrell Hospital Course: Discharge Diagnosis: E Coli UTI, POA menometorrhagia Diabetes mellitus type 2 Hypertension Morbid obesity with BMI 46.7 Fibromyalgia Chronic opiate dependency Hospital Course: Patient is a 44 yo female with a past medical history of diabetes mellitus, recurrent urinary tract infection, fibromyalgia, hypertension, and seizure disorder who presented with one-week duration of left flank pain. In the ER she underwent an extensive evaluation. She was found to have urinary tract infection with mild left-sided hydronephrosis on computed tomography scan. She was started on IV fluids, she was given 1 dose of gentamicin secondary to history of ALLERGIES, and she was admitted for further monitoring. Patient had noticed her urinary tract infection approximately one week prior. She got in to see her primary care physician Dr. You and was placed on Macrobid. She states this is the only oral antibiotic to which she is not ALLERGIC. She reports all other antibiotics cause reactions from difficulty in breathing to rash and hives. She reports that she is ALLERGIC to Benadryl. Of note she states that she has been suffering from a urinary tract infection since September of this year and has been on one week of Macrobid every month for the last 3 months. She does state that she has been having some difficulty with her menstrual cycle. She reports that she has been having heavy menstruation and they have been more frequent. She feels as though she gets a urinary tract infection every time her menstrual cycle ends. She was seen by urology who agreed with possible bladder infection and that patient needs MACHINE OPERATOR PACKAGING evaluation. Seen by Dr. Peraza who placed the patient on azactam. Her urinary culture came back with E Coli sensitive to Macrobid. She was determined stable for discharge home to complete a course of macrobid. She has an appointment with her REPRESENTATIVE GOVERNMENT RELATIONS on in 4 days. She will also follow with her urologist and Dr. You. I have given her information on uterine fibroids and interstitial cystitis and it would be unusual to have recurrent UTI causing her symptoms with E coli that is sensitive to the antibiotics she had been prescribed. I am concerned that she has bacterial colonization and not true UTI with an alternative cause of her symptoms. She may also have a component of vaginal atrophy leading to these symptoms. I have expressed this to Vilma and asked her to follow-up as outpatient for evaluation of alternative diagnosis. I am also certain that her chronic opiate use is leading to hypersensitivity to pain. Patient seen and examined at bedside.Still having some burning in her left kidney area. Vital signs reviewed and stable. General: non toxic, no distress, appears at stated age, Obese Derm: warm, dry Head: atraumatic, normocephalic, symmetric Eyes: EOMI, no lid lag, anicteric sclera Mouth: no lip lesion, mucus membranes moist Cardiovascular: S1S2 reg, no murmur, positive posterior tibial pulse bilateral, Lungs: CTA bilateral, no rhonchi, no rales , no accessory muscle use Abdominal: soft, nontender to palpation, no guarding, no appreciable organomegaly Ext: no gross muscle atrophy, no edema, no contractures Neuro: CN II-XI grossly intact, no focal neuro deficits Psych: Alert, oriented, appropriate affect A total of 45 minutes of time were spent preparing this complex discharge summary . Patient Condition at Discharge: Stable Plan - Discharge Summary Discharge Rx Participant: Yes New Discharge Prescriptions: New Nitrofurantoin Monohyd/M-Cryst [Macrobid] 100 mg PO Q12HR #8 cap Continue Morphine Sulfate ER [Ms Contin] 15 mg PO BID Ferrous Sulfate [Iron (65 MG Elemental)] 325 mg PO DAILY glipiZIDE [Glucotrol] 10 mg PO BID Sennosides [Senna] 17.4 mg PO DAILY oxyCODONE-APAP 10-325MG [Percocet 10-325 mg] 1 tab PO QID [place]-3 Fatty Acids [[place]-3] 1,000 mg PO DAILY L.acidoph,Paracasei, B.lactis [Probiotic] 1 cap PO DAILY Pioglitazone [Actos] 30 mg PO DAILY Hydrochlorothiazide 25 mg PO DAILY Ascorbic Acid [Vitamin C] 500 mg PO DAILY Potassium Gluconate 99 mg PO DAILY Magnesium Oxide 400 mg PO DAILY Cyanocobalamin (Vitamin B-12) [Vitamin B-12] 1,000 mcg PO DAILY Cholecalciferol [Vitamin D3 (25 Mcg = 1000 Iu)] 2,000 unit PO DAILY valACYclovir HCL [Valacyclovir] 1,000 mg PO BID Baclofen 10 mg PO BID PRN PRN Reason: Muscle Spasm Beclomethasone Dip 80 Mcg/Puff [Qvar 80 mcg] 1 puff INHALATION RT-BID Discharge Medication List Ferrous Sulfate [Iron (65 MG Elemental)] 325 mg PO DAILY 11/02/17 [History] Morphine Sulfate ER [Ms Contin] 15 mg PO BID 11/02/17 [History] glipiZIDE [Glucotrol] 10 mg PO BID 11/02/17 [History] Sennosides [Senna] 17.4 mg PO DAILY 11/16/17 [History] L.acidoph,Paracasei, B.lactis [Probiotic] 1 cap PO DAILY 04/23/18 [History] [place]-3 Fatty Acids [[place]-3] 1,000 mg PO DAILY 04/23/18 [History] oxyCODONE-APAP 10-325MG [Percocet 10-325 mg] 1 tab PO QID 04/23/18 [History] Pioglitazone [Actos] 30 mg PO DAILY 05/15/18 [History] Hydrochlorothiazide 25 mg PO DAILY 02/06/19 [History] Ascorbic Acid [Vitamin C] 500 mg PO DAILY 11/21/19 [History] Baclofen 10 mg PO BID PRN 11/21/19 [History] Beclomethasone Dip 80 Mcg/Puff [Qvar 80 mcg] 1 puff INHALATION RT-BID 11/21/19 [History] Cholecalciferol [Vitamin D3 (25 Mcg = 1000 Iu)] 2,000 unit PO DAILY 11/21/19 [History] Cyanocobalamin (Vitamin B-12) [Vitamin B-12] 1,000 mcg PO DAILY 11/21/19 [Histo ry] Magnesium Oxide 400 mg PO DAILY 11/21/19 [History] Potassium Gluconate 99 mg PO DAILY 11/21/19 [History] valACYclovir HCL [Valacyclovir] 1,000 mg PO BID 11/21/19 [History] Nitrofurantoin Monohyd/M-Cryst [Macrobid] 100 mg PO Q12HR #8 cap 11/24/19 [Rx] Follow up Appointment(s)/Referral(s): Marleny Farrell DO [Primary Care Provider] - 1-2 days Activity/Diet/Wound Care/Special Instructions: Activity: as tolerated Diet: Carb consistent Special Instructions: Antibiotic desensitization Please follow-up with your urologist and your Broom Worker Given information on uterine fibroid and interstitial cystitis Discharge Disposition: HOME SELF-CARE
[2019-11-24 12:31] LABS: Glucose,Whole Blood 159 mg/dL (75-99)
--- NOTE | 2019-11-25 13:20 | CDI ---
Documentation Clarification Form Date: 11/25/19 From: Riana Fraser Phone: If you have a question about this query, please contact Venus Fraser, Grounds/Maintenance Specialist at [phone] between 8am and 5pm. Admit Date: 11/22/19 Discharge Date: 11/24/19 Patient Name: Vilma Carter Visit Number: [id number] ATTENTION: The Clinical Documentation Specialists (CDI) and [facility] Coding Staff appreciate your assistance in clarifying documentation. Please respond to the clarification below the line at the bottom and electronically sign. The CDI & [facility] Coding staff will review the response and follow-up if needed. Please note: Queries are made part of the Legal Health Record. If you have any questions, please contact the author of this message via ITS. Dear Dr Guillen, The patient has type 2 uncontrolled diabetes, as indicated on ED note. BS on [id number] and the next day CS=150 Treatment: insulin sliding scale In order to capture the severity of Illness and necessary documentation specificity, please clarify uncontrolled diabetes mellitus as stated in ED report: Hypoglycemia with or without coma Hyperglycemia other(specify) unable to determine Patients diabetes in not uncontrolled MTDD
== END 2019-11-24 14:29 | disposition home or self-care (01) ==
LOC: EC 19:44 → INTOOBSV 11-22 01:04 → 6PED 11-22 01:04 → UNDODISIN 11-24 14:29
PROVIDERS: ADMIT Internal Medicine; ATTEND Internal Medicine
DX: N13.6 Pyonephrosis (principal); B96.20 Unspecified Escherichia coli [E. coli] as the cause of diseases classified elsewhere; N92.1 Excessive and frequent menstruation with irregular cycle; D25.9 Leiomyoma of uterus, unspecified; M79.7 Fibromyalgia; F11.20 Opioid dependence, uncomplicated; E11.9 Type 2 diabetes mellitus without complications; I10 Essential (primary) hypertension; G40.909 Epilepsy, unspecified, not intractable, without status epilepticus; Z03.818 Encounter for observation for suspected exposure to other biological agents ruled out; F41.9 Anxiety disorder, unspecified; E66.01 Morbid (severe) obesity due to excess calories; Z68.42 Body mass index [BMI] 45.0-49.9, adult; G89.29 Other chronic pain; M54.9 Dorsalgia, unspecified; M21.372 Foot drop, left foot; Z79.84 Long term (current) use of oral hypoglycemic drugs; Z79.899 Other long term (current) drug therapy; Z79.51 Long term (current) use of inhaled steroids; Z88.1 Allergy status to other antibiotic agents; Z88.0 Allergy status to penicillin; Z88.2 Allergy status to sulfonamides; Z91.048 Other nonmedicinal substance allergy status; Z88.3 Allergy status to other anti-infective agents; Z88.8 Allergy status to other drugs, medicaments and biological substances; Z87.442 Personal history of urinary calculi; Z87.440 Personal history of urinary (tract) infections; Z86.73 Personal history of transient ischemic attack (TIA), and cerebral infarction without residual deficits; Z86.14 Personal history of Methicillin resistant Staphylococcus aureus infection; Z90.49 Acquired absence of other specified parts of digestive tract; Z96.0 Presence of urogenital implants; Z98.49 Cataract extraction status, unspecified eye; Z80.3 Family history of malignant neoplasm of breast; Z80.6 Family history of leukemia
CPT/HCPCS: 96361 ×4; 96366 ×3; 96367; 96372 ×3; 96365; 99285; 36415; 80053; 80048 ×2; 83605; 83690; 85025 ×3; 81001; 81025; 87040 ×2; 87086; 87077; 87186; 93971; 74176; G0378 ×3; U0003; J1644 ×3; J1580

== ENCOUNTER 2019-11-26 19:22 | Emergency (ER) | payer OTHER ==
[2019-11-26] MEDS ORDERED: ONDANSETRON 4 MG/2 ML VIAL IVP STA (19:35)
[2019-11-26] MEDS ORDERED: KETOROLAC 30 MG/ML 1 ML VIAL IVP STA (19:35)
[2019-11-26] MEDS ORDERED: SODIUM CHLORIDE 0.9% 1,000 ML IV ONE (19:35)
[2019-11-26] MEDS ORDERED: HYDROmorphone 0.5 MG/0.5 ML SYRINGE IVP STA (19:36)
--- NOTE | 2019-11-26 19:59 | ED ---
General Adult HPI - General Chief complaint: Urogenital Stated complaint: Abd Pain Time Seen by Provider: 11/26/19 19:28 Source: patient Mode of arrival: ambulatory Limitations: no limitations - History of Present Illness Initial comments: 44-year-old female patient presents to the emergency department today for evaluation of left flank pain. Patient was recently admitted for failed outpatient treatment pyelonephritis. Patient was discharged and started on Macrobid for days ago. Patient states that today she developed increased left kidney pain. States she has been nauseated and experiencing dysuria. Denies any hematuria. Denies any abdominal pain. Denies fever or chills. Patient states that she does have a history of frequent urinary tract infections and follows with a urologist at [place]. Patient did take her home pain medication without relief of her symptoms. Presented here for further evaluation. Patient denies any recent rash, cough, shortness of breath, chest pain, numbness, tingling, dizziness, weakness, headache, visual changes, or any other complaints. - Related Data Home Medications Medication Instructions Recorded Confirmed Ferrous Sulfate [Iron (65 MG 325 mg PO DAILY 11/02/17 11/26/19 Elemental)] Morphine Sulfate ER [Ms Contin] 15 mg PO BID 11/02/17 11/26/19 glipiZIDE [Glucotrol] 10 mg PO BID 11/02/17 11/26/19 Sennosides [Senna] 17.4 mg PO DAILY 11/16/17 11/26/19 L.acidoph,Paracasei, B.lactis 1 cap PO DAILY 04/23/18 11/26/19 [Probiotic] [place]-3 Fatty Acids [[place]-3] 1,000 mg PO DAILY 04/23/18 11/26/19 oxyCODONE-APAP 10-325MG [Percocet 1 tab PO QID 04/23/18 11/26/19 10-325 mg] Pioglitazone [Actos] 30 mg PO DAILY 05/15/18 11/26/19 Hydrochlorothiazide 25 mg PO DAILY 02/06/19 11/26/19 Ascorbic Acid [Vitamin C] 500 mg PO DAILY 11/21/19 11/26/19 Baclofen 10 mg PO BID PRN 11/21/19 11/26/19 Beclomethasone Dip 80 Mcg/Puff 1 puff INHALATION RT-BID 11/21/19 11/26/19 [Qvar 80 mcg] Cholecalciferol [Vitamin D3 (25 2,000 unit PO DAILY 11/21/19 11/26/19 Mcg = 1000 Iu)] Cyanocobalamin (Vitamin B-12) 1,000 mcg PO DAILY 11/21/19 11/26/19 [Vitamin B-12] Magnesium Oxide 400 mg PO DAILY 11/21/19 11/26/19 Potassium Gluconate 99 mg PO DAILY 11/21/19 11/26/19 valACYclovir HCL [Valacyclovir] 1,000 mg PO BID 11/21/19 11/26/19 Previous Rx's Medication Instructions Recorded Nitrofurantoin Macrocrystal 100 mg PO QID #16 cap 11/24/19 [Macrodantin] Ketorolac [Toradol] 10 mg PO Q8H #9 tab 11/26/19 Ondansetron [Zofran ODT] 4 mg PO Q8HR PRN #10 tab 11/26/19 Allergies Allergy/AdvReac Type Severity Reaction Status Date / Time adhesive tape Allergy Severe Rash/Hives Verified 11/26/19 20:20 cortisone [Cortisone] Allergy Severe Anaphylaxis Verified 11/26/19 20:20 diphenhydramine HCl Allergy Severe Anaphylaxis Verified 11/26/19 20:20 [From Benadryl] Penicillins Allergy Severe Anaphylaxis Verified 11/26/19 20:20 Sulfa (Sulfonamide Allergy Intermediate Rash/Hives Verified 11/26/19 20:20 Antibiotics) Cephalosporins Allergy Mild Rash/Hives Verified 11/26/19 20:20 doxycycline Allergy Mild Rash/Hives Verified 11/26/19 20:20 Quinolones Allergy Mild Rash/Hives Verified 11/26/19 20:20 Mallard And Derivatives Allergy Rash/Hives Verified 11/26/19 20:20 [M[place]ard] Iodine and Iodide Containing Allergy Unknown Verified 11/26/19 20:20 Produc nitrofurantoin AdvReac Abdominal Verified 11/26/19 20:20 [From Macrobid] Pain Review of Systems ROS Statement: Those systems with pertinent positive or pertinent negative responses have been documented in the HPI. ROS Other: All systems not noted in ROS Statement are negative. 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 Date of last positivie culture/infection: 07/04/01 MDRO Source:: gallbladder Past Surgical History: Cholecystectomy, Hernia Repair Additional Past Surgical History / Comment(s): CATARACT SURGERY, kidney stents ; Colonoscopies, ventral hernia 08/02/17, Past Anesthesia/Blood Transfusion Reactions: No Reported Reaction Past Psychological History: Anxiety Smoking Status: Never smoker Past Alcohol Use History: None Reported Past Drug Use History: None Reported - Past Family History Father Family Medical History: No Reported History Mother Family Medical History: Cancer Additional Family Medical History / Comment(s): breast cancer (axilla location) dx at age 45. Maternal aunt dx with breast cancer @50, at age 54 from breast cancer Sister(s) Family Medical History: Cancer Additional Family Medical History / Comment(s): at age 8 from Leukemia, General Exam Limitations: no limitations General appearance: alert, in no apparent distress, other (This is a well- developed, well-nourished adult female patient in no acute distress. Vital signs upon presentation are temperature 97.9F, pulse 91, respirations 20, blood pressure 135/85, pulse ox 99% on room air.) Eye exam: Present: normal appearance, PERRL, EOMI. Absent: scleral icterus, conjunctival injection, periorbital swelling ENT exam: Present: normal exam, normal oropharynx, mucous membranes moist Respiratory exam: Present: normal lung sounds bilaterally. Absent: respiratory distress, wheezes, rales, rhonchi, stridor Cardiovascular Exam: Present: regular rate, normal rhythm, normal heart sounds. Absent: systolic murmur, diastolic murmur, rubs, gallop, clicks GI/Abdominal exam: Present: soft, normal bowel sounds. Absent: distended, tenderness, guarding, rebound, rigid Back exam: Present: normal inspection, CVA tenderness (L). Absent: CVA tenderness (R) Neurological exam: Present: alert, oriented X3, CN II-XII intact Psychiatric exam: Present: normal affect, normal mood Skin exam: Present: warm, dry, intact, normal color. Absent: rash Course Vital Signs 11/26/19 11/26/19 19:24 21:11 Temperature 97.9 F 97.8 F Pulse Rate 91 81 Respiratory 20 18 Rate Blood Pressure 135/85 126/77 O2 Sat by Pulse 99 97 Oximetry Medical Decision Making - Medical Decision Making 44-year-old female patient presented to the emergency department today for evaluation of left flank pain. Patient was admitted and discharged from hospital about 4 days ago for pyelonephritis. She was discharged home on Macrobid. States that today she had increased in left flank pain was concerned for infection was returning. Physical examination did reveal left CVA tenderness. She is afebrile normal vital signs. Labs reviewed and revealed normal white blood cell count. Urinalysis shows clearance of infection. Upon reevaluation she does report improvement of symptoms. She'll be discharged home to continue her Macrobid. She is instructed pop with her primary care physician and her urologist as soon as possible. Return parameters were discussed in detail. She verbalizes understanding and agrees with this plan. - Lab Data Result diagrams: 11/26/19 19:57 11/26/19 19:57 Lab Results 11/26/19 11/26/19 11/26/19 Range/Units 19:57 19:57 19:59 WBC 3.6 L (3.8-10.6) k/uL RBC 4.77 (3.80-5.40) m/uL Hgb 13.9 (11.4-16.0) gm/dL Hct 43.0 (34.0-46.0) % MCV 90.3 (80.0-100.0) fL MCH 29.1 (25.0-35.0) pg MCHC 32.2 (31.0-37.0) g/dL RDW 12.8 (11.5-15.5) % Plt Count 258 (150-450) k/uL Neutrophils % 59 % Lymphocytes % 28 % Monocytes % 8 % Eosinophils % 1 % Basophils % 1 % Neutrophils # 2.1 (1.3-7.7) k/uL Lymphocytes # 1.0 (1.0-4.8) k/uL Monocytes # 0.3 (0-1.0) k/uL Eosinophils # 0.0 (0-0.7) k/uL Basophils # 0.0 (0-0.2) k/uL Sodium 136 L (137-145) mmol/L Potassium 3.9 (3.5-5.1) mmol/L Chloride 101 (98-107) mmol/L Carbon Dioxide 26 (22-30) mmol/L Anion Gap 9 mmol/L BUN 12 (7-17) mg/dL Creatinine 0.51 L (0.52-1.04) mg/dL Est GFR (CKD-EPI)AfAm >90 (>60 ml/min/1.73 sqM) Est GFR (CKD-EPI)NonAf >90 (>60 ml/min/1.73 sqM) Glucose 271 H (74-99) mg/dL Calcium 9.7 (8.4-10.2) mg/dL Total Bilirubin 0.4 (0.2-1.3) mg/dL AST 33 (14-36) U/L ALT 29 (4-34) U/L Alkaline Phosphatase 82 (38-126) U/L Total Protein 6.8 (6.3-8.2) g/dL Albumin 3.7 (3.5-5.0) g/dL Urine Color Yellow Urine Appearance Clear (Clear) Urine pH 6.0 (5.0-8.0) Ur Specific [place] 1.018 (1.001-1.035) Urine Protein 1+ H (Negative) Urine Glucose (UA) 2+ H (Negative) Urine Ketones Negative (Negative) Urine Blood Negative (Negative) Urine Nitrite Negative (Negative) Urine Bilirubin Negative (Negative) Urine Urobilinogen <2.0 (<2.0) mg/dL Ur Leukocyte Esterase Negative (Negative) Urine RBC 1 (0-5) /hpf Urine WBC 2 (0-5) /hpf Ur Squamous Epith Cells 2 (0-4) /hpf Urine Bacteria Rare H (None) /hpf Hyaline Casts 3 H (0-2) /lpf Urine Mucus Rare H (None) /hpf Urine HCG, Qual (Not Detectd) 11/26/19 Range/Units 19:59 WBC (3.8-10.6) k/uL RBC (3.80-5.40) m/uL Hgb (11.4-16.0) gm/dL Hct (34.0-46.0) % MCV (80.0-100.0) fL MCH (25.0-35.0) pg MCHC (31.0-37.0) g/dL RDW (11.5-15.5) % Plt Count (150-450) k/uL Neutrophils % % Lymphocytes % % Monocytes % % Eosinophils % % Basophils % % Neutrophils # (1.3-7.7) k/uL Lymphocytes # (1.0-4.8) k/uL Monocytes # (0-1.0) k/uL Eosinophils # (0-0.7) k/uL Basophils # (0-0.2) k/uL Sodium (137-145) mmol/L Potassium (3.5-5.1) mmol/L Chloride (98-107) mmol/L Carbon Dioxide (22-30) mmol/L Anion Gap mmol/L BUN (7-17) mg/dL Creatinine (0.52-1.04) mg/dL Est GFR (CKD-EPI)AfAm (>60 ml/min/1.73 sqM) Est GFR (CKD-EPI)NonAf (>60 ml/min/1.73 sqM) Glucose (74-99) mg/dL Calcium (8.4-10.2) mg/dL Total Bilirubin (0.2-1.3) mg/dL AST (14-36) U/L ALT (4-34) U/L Alkaline Phosphatase (38-126) U/L Total Protein (6.3-8.2) g/dL Albumin (3.5-5.0) g/dL Urine Color Urine Appearance (Clear) Urine pH (5.0-8.0) Ur Specific [place] (1.001-1.035) Urine Protein (Negative) Urine Glucose (UA) (Negative) Urine Ketones (Negative) Urine Blood (Negative) Urine Nitrite (Negative) Urine Bilirubin (Negative) Urine Urobilinogen (<2.0) mg/dL Ur Leukocyte Esterase (Negative) Urine RBC (0-5) /hpf Urine WBC (0-5) /hpf Ur Squamous Epith Cells (0-4) /hpf Urine Bacteria (None) /hpf Hyaline Casts (0-2) /lpf Urine Mucus (None) /hpf Urine HCG, Qual Not Detected (Not Detectd) Disposition Clinical Impression: Flank pain Disposition: HOME SELF-CARE Condition: Good Instructions (If sedation given, give patient instructions): Flank Pain (ED) Additional Instructions: Increase fluids. Rest. Follow up with your primary care physician and urologist for further evaluation as soon as possible. Return to the emergency department immediately for any new, worsening, or concerning symptoms. Prescriptions: Ketorolac [Toradol] 10 mg PO Q8H #9 tab Ondansetron [Zofran ODT] 4 mg PO Q8HR PRN #10 tab PRN Reason: Nausea Is patient prescribed a controlled substance at d/c from ED?: No Referrals: Marleny Farrell DO [Primary Care Provider] - 1-2 days Time of Disposition: 21:03
[2019-11-26 20:10] LABS: Appearance,Urine Clear (Clear); Bacteria,Urine Rare /hpf; Bilirubin,Urine Negative (Negative); Blood,Urine Negative (Negative); Color,Urine Yellow; Glucose,Urine (UA) 2+ (Negative); Hyaline Casts,Urine 3 /lpf (0-2); Ketones,Urine Negative (Negative); Leukocyte Esterase,Urine Negative (Negative); Mucus,Urine Rare /hpf; Nitrite,Urine Negative (Negative); Protein,Urine 1+ (Negative); RBC,Urine 1 /hpf (0-5); Specific Gravity,Urine 1.018 (1.001-1.035); Squamous Epithelial Cell,Urine 2 /hpf (0-4); Urobilinogen,Urine <2.0 mg/dL (<2.0); WBC,Urine 2 /hpf (0-5)
[2019-11-26 20:15] LABS: ALT 29 U/L (4-34); AST 33 U/L (14-36); African American GFR (CKD) >90 (>60 ml/min/1.73 sqM); Albumin 3.7 g/dL (3.5-5.0); Alkaline Phosphatase 82 U/L (38-126); Anion Gap 9 mmol/L; Blood Urea Nitrogen 12 mg/dL (7-17); Calcium 9.7 mg/dL (8.4-10.2); Carbon Dioxide 26 mmol/L (22-30); Chloride 101 mmol/L (98-107); Glucose 271 mg/dL (74-99); Non-African American GFR(CKD) >90 (>60 ml/min/1.73 sqM); Potassium 3.9 mmol/L (3.5-5.1); Sodium 136 mmol/L (137-145); Total Bilirubin 0.4 mg/dL (0.2-1.3); Total Protein 6.8 g/dL (6.3-8.2)
[2019-11-26 20:22] LABS: Basophils % (A) 1 %; Eosinophils % (A) 1 %; HGB 13.9 gm/dL (11.4-16.0); Lymphocytes % (A) 28 %; MCH 29.1 pg (25.0-35.0); MCHC 32.2 g/dL (31.0-37.0); MCV 90.3 fL (80.0-100.0); Mean Platelet Volume 8.6; Monocytes # (A) 0.3 k/uL (0-1.0); Monocytes % (A) 8 %; Neutrophils # (A) 2.1 k/uL (1.3-7.7); Neutrophils % (A) 59 %; Platelet Count 258 k/uL (150-450); RBC 4.77 m/uL (3.80-5.40); RDW 12.8 % (11.5-15.5); WBC 3.6 k/uL (3.8-10.6)
[2019-11-26 21:13] VITALS: BP 126/77; PULSE 81; RESP 18; TEMP 97.8
== END 2019-11-26 21:13 | disposition home or self-care (01) ==
LOC: EC 19:22
DX: R10.9 Unspecified abdominal pain (principal); R11.0 Nausea; R30.0 Dysuria; E11.9 Type 2 diabetes mellitus without complications; I10 Essential (primary) hypertension; F41.9 Anxiety disorder, unspecified; G40.909 Epilepsy, unspecified, not intractable, without status epilepticus; Z79.84 Long term (current) use of oral hypoglycemic drugs; Z79.899 Other long term (current) drug therapy; Z91.048 Other nonmedicinal substance allergy status; Z88.8 Allergy status to other drugs, medicaments and biological substances; Z88.0 Allergy status to penicillin; Z88.2 Allergy status to sulfonamides; Z88.1 Allergy status to other antibiotic agents; Z91.018 Allergy to other foods; Z90.49 Acquired absence of other specified parts of digestive tract; Z86.73 Personal history of transient ischemic attack (TIA), and cerebral infarction without residual deficits
CPT/HCPCS: 36415; 80053; 85025; 81001; 81025; 99284; 96374; 96375 ×2; 96361; J2405; J1885; J1170

== ENCOUNTER 2019-12-07 19:50 | Observation (INO) | payer OTHER ==
[2019-12-07] MEDS ORDERED: SODIUM CHLORIDE 0.9% 500 ML 500 ML IV STA (20:04)
[2019-12-07] MEDS ORDERED: MORPHINE SULFATE 4 MG/ML SYRINGE IV STA (20:04)
--- NOTE | 2019-12-07 20:07 | ED ---
General Adult HPI - General Stated complaint: Chest pain Time Seen by Provider: 12/07/19 19:54 Source: patient, RN notes reviewed, old records reviewed - History of Present Illness Initial comments: Peripheral female presented for evaluation of substernal and right-sided chest pain which began 30 minutes prior to arrival. Patient has associated dyspnea. She has no known history of coronary artery disease, no history of DVT or PE. She denies any preceding symptoms of chest pain. No cough. She has been dealing with a bladder infection and kidney infection over the past several weeks. She does have history of fibromyalgia and chronic pain and is currently on morphine and Percocet. She has been taking these medications as prescribed. No vomiting. No diarrhea. No fever. - Related Data Home Medications Medication Instructions Recorded Confirmed Ferrous Sulfate [Iron (65 MG 325 mg PO DAILY 11/02/17 11/26/19 Elemental)] Morphine Sulfate ER [Ms Contin] 15 mg PO BID 11/02/17 11/26/19 glipiZIDE [Glucotrol] 10 mg PO BID 11/02/17 11/26/19 Sennosides [Senna] 17.4 mg PO DAILY 11/16/17 11/26/19 L.acidoph,Paracasei, B.lactis 1 cap PO DAILY 04/23/18 11/26/19 [Probiotic] [place]-3 Fatty Acids [[place]-3] 1,000 mg PO DAILY 04/23/18 11/26/19 oxyCODONE-APAP 10-325MG [Percocet 1 tab PO QID 04/23/18 11/26/19 10-325 mg] Pioglitazone [Actos] 30 mg PO DAILY 05/15/18 11/26/19 hydroCHLOROthiazide 25 mg PO DAILY 02/06/19 11/26/19 Ascorbic Acid [Vitamin C] 500 mg PO DAILY 11/21/19 11/26/19 Baclofen 10 mg PO BID PRN 11/21/19 11/26/19 Beclomethasone Dip 80 Mcg/Puff 1 puff INHALATION RT-BID 11/21/19 11/26/19 [Qvar 80 mcg] Cholecalciferol [Vitamin D3 (25 2,000 unit PO DAILY 11/21/19 11/26/19 Mcg = 1000 Iu)] Cyanocobalamin (Vitamin B-12) 1,000 mcg PO DAILY 11/21/19 11/26/19 [Vitamin B-12] Magnesium Oxide 400 mg PO DAILY 11/21/19 11/26/19 Potassium Gluconate 99 mg PO DAILY 11/21/19 11/26/19 valACYclovir HCL [Valacyclovir] 1,000 mg PO BID 11/21/19 11/26/19 Previous Rx's Medication Instructions Recorded Nitrofurantoin Macrocrystal 100 mg PO QID #16 cap 11/24/19 [Macrodantin] Ketorolac [Toradol] 10 mg PO Q8H #9 tab 11/26/19 Ondansetron [Zofran ODT] 4 mg PO Q8HR PRN #10 tab 11/26/19 Allergies Allergy/AdvReac Type Severity Reaction Status Date / Time adhesive tape Allergy Severe Rash/Hives Verified 12/07/19 20:12 cortisone [Cortisone] Allergy Severe Anaphylaxis Verified 12/07/19 20:12 diphenhydramine HCl Allergy Severe Anaphylaxis Verified 12/07/19 20:12 [From Benadryl] Penicillins Allergy Severe Anaphylaxis Verified 12/07/19 20:12 Sulfa (Sulfonamide Allergy Intermediate Rash/Hives Verified 12/07/19 20:12 Antibiotics) Cephalosporins Allergy Mild Rash/Hives Verified 12/07/19 20:12 doxycycline Allergy Mild Rash/Hives Verified 12/07/19 20:12 Quinolones Allergy Mild Rash/Hives Verified 12/07/19 20:12 [place]al[place] And Derivatives Allergy Rash/Hives Verified 12/07/19 20:12 [[place]] Iodine and Iodide Containing Allergy Unknown Verified 12/07/19 20:12 Produc nitrofurantoin AdvReac Abdominal Verified 12/07/19 20:12 [From Macrobid] Pain Review of Systems ROS Statement: Those systems with pertinent positive or pertinent negative responses have been documented in the HPI. ROS Other: All systems not noted in ROS Statement are negative. 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 Date of last positivie culture/infection: 07/04/01 MDRO Source:: gallbladder Past Surgical History: Cholecystectomy, Hernia Repair Additional Past Surgical History / Comment(s): CATARACT SURGERY, kidney stents ; Colonoscopies, ventral hernia 08/02/17, Past Anesthesia/Blood Transfusion Reactions: No Reported Reaction Past Psychological History: Anxiety Smoking Status: Never smoker Past Alcohol Use History: None Reported Past Drug Use History: None Reported - Past Family History Father Family Medical History: No Reported History Mother Family Medical History: Cancer Additional Family Medical History / Comment(s): breast cancer (axilla location) dx at age 45. Maternal aunt dx with breast cancer @50, at age 54 from breast cancer Sister(s) Family Medical History: Cancer Additional Family Medical History / Comment(s): at age 8 from Leukemia, General Exam General appearance: alert, in distress Head exam: Present: atraumatic, normocephalic Eye exam: Present: normal appearance, PERRL ENT exam: Present: normal exam Neck exam: Present: normal inspection. Absent: tenderness Respiratory exam: Present: respiratory distress, decreased breath sounds (Decreased breath sounds on the right, good air entry on the left, no wheezing.) Cardiovascular Exam: Present: normal rhythm, tachycardia GI/Abdominal exam: Present: soft. Absent: distended, tenderness, guarding, rebound Extremities exam: Present: pedal edema, calf tenderness Neurological exam: Present: alert, oriented X3, CN II-XII intact. Absent: motor sensory deficit Psychiatric exam: Present: normal affect, normal mood Skin exam: Present: warm, dry, intact. Absent: cyanosis, diaphoretic Course Vital Signs 12/07/19 12/07/19 20:10 21:04 Temperature 97.4 F L 98 F Pulse Rate 98 90 Respiratory 26 H 18 Rate Blood Pressure 139/90 128/90 O2 Sat by Pulse 100 99 Oximetry EKG Findings - EKG Comments: EKG Findings:: EKG: Normal sinus rhythm, low voltage, rate of 100, ND interval 158, QRS duration 94, QTC 487, mildly prolonged QT. Medical Decision Making - Medical Decision Making 44-year-old female with substernal chest pain and right-sided chest pain as well as dyspnea. Chest x-ray performed, negative for acute cardiopulmonary disease. EKG showing sinus rhythm without ST segment elevation. Patient has laboratory studies which reveal normal CBC, CMP is significant for elevated blood sugar 347 treated initially with IV fluids. She has a minimal lactic acid of 2.6. I nitial troponin is negative. CT angiography performed to rule out pulmonary embolism this is negative for any acute cardiopulmonary findings, no pulmonary embolism. Case discussed with Dr. Chavarria who will admit for observation, serial cardiac enzymes, telemetry, cardiology consultation. - Lab Data Result diagrams: 12/07/19 20:07 12/07/19 20:07 Lab Results 12/07/19 12/07/19 12/07/19 Range/Units 20:07 20:07 20:07 WBC 7.3 (3.8-10.6) k/uL RBC 4.63 (3.80-5.40) m/uL Hgb 14.3 (11.4-16.0) gm/dL Hct 41.9 (34.0-46.0) % MCV 90.5 (80.0-100.0) fL MCH 30.9 (25.0-35.0) pg MCHC 34.2 (31.0-37.0) g/dL RDW 13.0 (11.5-15.5) % Plt Count 248 (150-450) k/uL Neutrophils % 63 % Lymphocytes % 27 % Monocytes % 6 % Eosinophils % 1 % Basophils % 1 % Neutrophils # 4.6 (1.3-7.7) k/uL Lymphocytes # 2.0 (1.0-4.8) k/uL Monocytes # 0.4 (0-1.0) k/uL Eosinophils # 0.1 (0-0.7) k/uL Basophils # 0.0 (0-0.2) k/uL PT 9.9 (9.0-12.0) sec INR 0.9 (<1.2) APTT 23.1 (22.0-30.0) sec Sodium 133 L (137-145) mmol/L Potassium 3.9 (3.5-5.1) mmol/L Chloride 100 (98-107) mmol/L Carbon Dioxide 24 (22-30) mmol/L Anion Gap 9 mmol/L BUN 15 (7-17) mg/dL Creatinine 0.65 (0.52-1.04) mg/dL Est GFR (CKD-EPI)AfAm >90 (>60 ml/min/1.73 sqM) Est GFR (CKD-EPI)NonAf >90 (>60 ml/min/1.73 sqM) Glucose 347 H (74-99) mg/dL Lactic Ac Sepsis Rflx Plasma Lactic Acid Oliverio (0.7-2.0) mmol/L Calcium 9.6 (8.4-10.2) mg/dL Magnesium 1.5 L (1.6-2.3) mg/dL Total Bilirubin 0.6 (0.2-1.3) mg/dL AST 23 (14-36) U/L ALT 27 (4-34) U/L Alkaline Phosphatase 79 (38-126) U/L Troponin I (0.000-0.034) ng/mL NT-Pro-B Natriuret Pep pg/mL Total Protein 6.9 (6.3-8.2) g/dL Albumin 3.9 (3.5-5.0) g/dL Lipase 138 (23-300) U/L Urine Color Urine Appearance (Clear) Urine pH (5.0-8.0) Ur Specific [place] (1.001-1.035) Urine Protein (Negative) Urine Glucose (UA) (Negative) Urine Ketones (Negative) Urine Blood (Negative) Urine Nitrite (Negative) Urine Bilirubin (Negative) Urine Urobilinogen (<2.0) mg/dL Ur Leukocyte Esterase (Negative) 12/07/19 12/07/19 12/07/19 Range/Units 20:07 20:07 20:07 WBC (3.8-10.6) k/uL RBC (3.80-5.40) m/uL Hgb (11.4-16.0) gm/dL Hct (34.0-46.0) % MCV (80.0-100.0) fL MCH (25.0-35.0) pg MCHC (31.0-37.0) g/dL RDW (11.5-15.5) % Plt Count (150-450) k/uL Neutrophils % % Lymphocytes % % Monocytes % % Eosinophils % % Basophils % % Neutrophils # (1.3-7.7) k/uL Lymphocytes # (1.0-4.8) k/uL Monocytes # (0-1.0) k/uL Eosinophils # (0-0.7) k/uL Basophils # (0-0.2) k/uL PT (9.0-12.0) sec INR (<1.2) APTT (22.0-30.0) sec Sodium (137-145) mmol/L Potassium (3.5-5.1) mmol/L Chloride (98-107) mmol/L Carbon Dioxide (22-30) mmol/L Anion Gap mmol/L BUN (7-17) mg/dL Creatinine (0.52-1.04) mg/dL Est GFR (CKD-EPI)AfAm (>60 ml/min/1.73 sqM) Est GFR (CKD-EPI)NonAf (>60 ml/min/1.73 sqM) Glucose (74-99) mg/dL Lactic Ac Sepsis Rflx Plasma Lactic Acid Oliverio 2.6 H* (0.7-2.0) mmol/L Calcium (8.4-10.2) mg/dL Magnesium (1.6-2.3) mg/dL Total Bilirubin (0.2-1.3) mg/dL AST (14-36) U/L ALT (4-34) U/L Alkaline Phosphatase (38-126) U/L Troponin I <0.012 (0.000-0.034) ng/mL NT-Pro-B Natriuret Pep 64 pg/mL Total Protein (6.3-8.2) g/dL Albumin (3.5-5.0) g/dL Lipase (23-300) U/L Urine Color Urine Appearance (Clear) Urine pH (5.0-8.0) Ur Specific [place] (1.001-1.035) Urine Protein (Negative) Urine Glucose (UA) (Negative) Urine Ketones (Negative) Urine Blood (Negative) Urine Nitrite (Negative) Urine Bilirubin (Negative) Urine Urobilinogen (<2.0) mg/dL Ur Leukocyte Esterase (Negative) 12/07/19 12/07/19 Range/Units 20:25 21:44 WBC (3.8-10.6) k/uL RBC (3.80-5.40) m/uL Hgb (11.4-16.0) gm/dL Hct (34.0-46.0) % MCV (80.0-100.0) fL MCH (25.0-35.0) pg MCHC (31.0-37.0) g/dL RDW (11.5-15.5) % Plt Count (150-450) k/uL Neutrophils % % Lymphocytes % % Monocytes % % Eosinophils % % Basophils % % Neutrophils # (1.3-7.7) k/uL Lymphocytes # (1.0-4.8) k/uL Monocytes # (0-1.0) k/uL Eosinophils # (0-0.7) k/uL Basophils # (0-0.2) k/uL PT (9.0-12.0) sec INR (<1.2) APTT (22.0-30.0) sec Sodium (137-145) mmol/L Potassium (3.5-5.1) mmol/L Chloride (98-107) mmol/L Carbon Dioxide (22-30) mmol/L Anion Gap mmol/L BUN (7-17) mg/dL Creatinine (0.52-1.04) mg/dL Est GFR (CKD-EPI)AfAm (>60 ml/min/1.73 sqM) Est GFR (CKD-EPI)NonAf (>60 ml/min/1.73 sqM) Glucose (74-99) mg/dL Lactic Ac Sepsis Rflx Y Plasma Lactic Acid Oliverio (0.7-2.0) mmol/L Calcium (8.4-10.2) mg/dL Magnesium (1.6-2.3) mg/dL Total Bilirubin (0.2-1.3) mg/dL AST (14-36) U/L ALT (4-34) U/L Alkaline Phosphatase (38-126) U/L Troponin I (0.000-0.034) ng/mL NT-Pro-B Natriuret Pep pg/mL Total Protein (6.3-8.2) g/dL Albumin (3.5-5.0) g/dL Lipase (23-300) U/L Urine Color Light Yellow Urine Appearance Clear (Clear) Urine pH 7.0 (5.0-8.0) Ur Specific [place] 1.023 (1.001-1.035) Urine Protein Trace H (Negative) Urine Glucose (UA) 4+ H (Negative) Urine Ketones Trace H (Negative) Urine Blood Negative (Negative) Urine Nitrite Negative (Negative) Urine Bilirubin Negative (Negative) Urine Urobilinogen <2.0 (<2.0) mg/dL Ur Leukocyte Esterase Negative (Negative) Disposition Clinical Impression: Chest pain Disposition: ADMITTED IP TO THIS HOSP Condition: Stable Is patient prescribed a controlled substance at d/c from ED?: No Referrals: Marleny Farrell DO [Primary Care Provider] - 1-2 days Decision to Admit Reason: Admit from EC Decision Date: 12/07/19 Decision Time: 22:32
[2019-12-07] MEDS ORDERED: FAMOTIDINE 20 MG/2 ML VIAL IV STA (20:12)
[2019-12-07 20:15] LABS: Basophils % (A) 1 %; Eosinophils # (A) 0.1 k/uL (0-0.7); Eosinophils % (A) 1 %; HCT 41.9 % (34.0-46.0); HGB 14.3 gm/dL (11.4-16.0); Lymphocytes % (A) 27 %; MCH 30.9 pg (25.0-35.0); MCHC 34.2 g/dL (31.0-37.0); MCV 90.5 fL (80.0-100.0); Mean Platelet Volume 8.7; Monocytes # (A) 0.4 k/uL (0-1.0); Monocytes % (A) 6 %; Neutrophils # (A) 4.6 k/uL (1.3-7.7); Neutrophils % (A) 63 %; Platelet Count 248 k/uL (150-450); RBC 4.63 m/uL (3.80-5.40); WBC 7.3 k/uL (3.8-10.6)
[2019-12-07 20:25] LABS: ALT 27 U/L (4-34); AST 23 U/L (14-36); African American GFR (CKD) >90 (>60 ml/min/1.73 sqM); Albumin 3.9 g/dL (3.5-5.0); Alkaline Phosphatase 79 U/L (38-126); Anion Gap 9 mmol/L; Blood Urea Nitrogen 15 mg/dL (7-17); Calcium 9.6 mg/dL (8.4-10.2); Carbon Dioxide 24 mmol/L (22-30); Chloride 100 mmol/L (98-107); Glucose 347 mg/dL (74-99); Magnesium 1.5 mg/dL (1.6-2.3); Non-African American GFR(CKD) >90 (>60 ml/min/1.73 sqM); Potassium 3.9 mmol/L (3.5-5.1); Sodium 133 mmol/L (137-145); Total Bilirubin 0.6 mg/dL (0.2-1.3); Total Protein 6.9 g/dL (6.3-8.2)
--- NOTE | 2019-12-07 20:25 | XR ---
EXAMINATION TYPE: XR chest 1V portable DATE OF EXAM: 12/07/2019 COMPARISON: 09/26/2018 HISTORY: Short of breath TECHNIQUE: Single view FINDINGS: There is no heart failure nor confluent pneumonic infiltrate. Costophrenic angles are clear . Heart size is normal. There are chest leads. IMPRESSION: No active cardiopulmonary disease. No change.
[2019-12-07 20:31] LABS: INR 0.9 (<1.2); Partial Thromboplastin Time 23.1 sec (22.0-30.0); Prothrombin Time 9.9 sec (9.0-12.0)
[2019-12-07] MEDS ORDERED: MAGNESIUM SULFATE-D5W PMX 1 GM in DEXTROSE/WATER 1 100ML.BAG IVPB ONE (21:03)
[2019-12-07] MEDS ORDERED: MORPHINE SULFATE 4 MG/ML SYRINGE IVP STA (21:50)
[2019-12-07] MEDS ORDERED: SODIUM CHLORIDE 0.9% 500 ML 500 ML IV ONE (21:50)
[2019-12-07 22:00] LABS: Appearance,Urine Clear (Clear); Bilirubin,Urine Negative (Negative); Blood,Urine Negative (Negative); Color,Urine Light Yellow; Glucose,Urine (UA) 4+ (Negative); Ketones,Urine Trace (Negative); Leukocyte Esterase,Urine Negative (Negative); Nitrite,Urine Negative (Negative); Protein,Urine Trace (Negative); Specific Gravity,Urine 1.023 (1.001-1.035); Urobilinogen,Urine <2.0 mg/dL (<2.0)
--- NOTE | 2019-12-07 22:03 | CT ---
EXAMINATION TYPE: CT angio chest DATE OF EXAM: 12/07/2019 COMPARISON: None HISTORY: Shortness of breath. CT DLP: 1413.6 mGycm Automated exposure control for dose reduction was used. CONTRAST: Performed with IV Contrast, patient injected with 100 mL of Isovue 370. There are 3-D post processed images. There is some patchy atelectasis at the lung bases. Heart size is normal. There is no pericardial eff usion. There is no pleural effusion. There are no hilar masses. There is no mediastinal adenopathy. T horacic aorta is intact. I see no filling defects in the pulmonary arteries. Thoracic vertebra have normal alignment. Disc spaces are fairly normal. Posterior elements are intact . The ribs appear intact. IMPRESSION: No evidence of pulmonary embolism. Mild subsegmental atelectasis in the lower lung ramírez.
[2019-12-07] MEDS ORDERED: NALOXONE 0.4 MG/ML 1 ML VIAL IV PRN (22:29)
[2019-12-07] MEDS ORDERED: MORPHINE SULFATE 4 MG/ML SYRINGE IV PRN (22:29)
[2019-12-07] MEDS ORDERED: ASPIRIN 325 MG TAB PO STA (22:29)
[2019-12-07] MEDS ORDERED: ACETAMINOPHEN TAB 325 MG TAB PO PRN (22:29)
[2019-12-08] MEDS ORDERED: BACLOFEN 10 MG TAB PO PRN (01:00)
[2019-12-08 06:12] LABS: African American GFR (CKD) >90 (>60 ml/min/1.73 sqM); Anion Gap 4 mmol/L; Blood Urea Nitrogen 15 mg/dL (7-17); Calcium 8.9 mg/dL (8.4-10.2); Carbon Dioxide 25 mmol/L (22-30); Chloride 105 mmol/L (98-107); Glucose 252 mg/dL (74-99); Magnesium 1.6 mg/dL (1.6-2.3); Non-African American GFR(CKD) >90 (>60 ml/min/1.73 sqM); Potassium 4.1 mmol/L (3.5-5.1); Sodium 134 mmol/L (137-145)
[2019-12-08 07:06] LABS: Glucose,Whole Blood 254 mg/dL (75-99)
[2019-12-08] MEDS: MORPHINE SULFATE ER 15 MG TABLET PO SCH ×2 (08:49→21:57)
[2019-12-08] MEDS: oxyCODONE-APAP 10-325MG 1 EACH TAB PO SCH ×4 (08:51→21:58)
[2019-12-08] MEDS: SENNOSIDES 8.6 MG TAB PO SCH (08:52)
[2019-12-08] MEDS: FERROUS SULFATE 325 MG TAB PO SCH (08:52)
[2019-12-08] MEDS: CHOLECALCIFEROL 1,000 UNIT TAB PO SCH (08:52)
[2019-12-08] MEDS: CYANOCOBALAMIN 500 MCG TAB PO SCH (08:52)
[2019-12-08] MEDS: glipiZIDE 10 MG TAB PO SCH ×2 (08:53→21:57)
[2019-12-08] MEDS: valACYclovir HCL 1,000 MG TABLET PO SCH ×2 (08:53→21:58)
[2019-12-08] MEDS: ASPIRIN 325 MG TAB PO SCH (08:53)
[2019-12-08] MEDS: PIOGLITAZONE 30 MG TAB PO SCH (08:53)
[2019-12-08] MEDS: hydroCHLOROthiazide 25 MG TAB PO SCH (08:54)
[2019-12-08] MEDS: FAMOTIDINE 20 MG/2 ML VIAL IV SCH ×2 (08:56→21:57)
[2019-12-08] MEDS: HEPARIN SODIUM,PORCINE 5,000 UNIT/ML 1 ML VIAL SQ SCH ×2 (08:56→21:58)
[2019-12-08] MEDS ORDERED: KETOROLAC 30 MG/ML 1 ML VIAL IVP PRN (10:24)
--- NOTE | 2019-12-08 10:27 | P.HPIM ---
History of Present Illness This is a pleasant 44 years old female with multiple medical problems as below. Her PCP is Dr. You, also she follows up with urologist from outside system, she sees pain management doctor and TELETYPE TECHNICIAN for her fibroids. She came to the hospital because of chest tightness of one-day duration, yesterday patient also could not prevent got dizzy. Her chest pain was central, nonradiating about 10/10 in severity this morning she symptoms looks relax in bed and states her chest pain is about 8/10, it felt like sharp associated with dyspnea but no coughing, no palpitation. Also she has history of bilateral kidney stone, which were causing her bilateral back pain since September and gradually getting worse, over the last week she started having vomiting whenever she eats She denies dysuria or urgency, she try to avoid peeing, which causes her vomiting, urinalysis shows no infection but to continue area Vitals are stable, CBC, INR, BMP, liver enzymes are unremarkable. Lactic acid was elevated at 2.6 came back to normal at 1.1. Serial troponins are negative. Chest CTA: No PE. Chest x-ray: No acute process. test is negative In the emergency room she got aspirin, Pepcid, morphine and magnesium sulfate. Also she got 1 L of normal saline. Review of Systems CONSTITUTIONAL: No fever, no malaise, no fatigue. HEENT: No recent visual problems or hearing problems. Denied any sore throat. CARDIOVASCULAR: No orthopnea, PND, no palpitations, no syncope. PULMONARY: No shortness of breath, no cough, no hemoptysis. GASTROINTESTINAL: No diarrhea, no nausea, no vomiting, no abdominal pain. Normoactive bowel sounds. NEUROLOGICAL: No headaches, no weakness, no numbness. HEMATOLOGICAL: Denies any bleeding or petechiae. GENITOURINARY: Denies any burning micturition, frequency, or urgency. MUSCULOSKELETAL/RHEUMATOLOGICAL: Denies any joint pain, swelling, or any muscle pain. ENDOCRINE: Denies any polyuria or polydipsia. 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 Date of last positivie culture/infection: 07/04/01 MDRO Source:: gallbladder Past Surgical History: Cholecystectomy, Hernia Repair Additional Past Surgical History / Comment(s): CATARACT SURGERY, kidney stents ; Colonoscopies, ventral hernia 08/02/17, Past Anesthesia/Blood Transfusion Reactions: No Reported Reaction Past Psychological History: Anxiety Smoking Status: Never smoker Past Alcohol Use History: None Reported Past Drug Use History: None Reported - Past Family History Father Family Medical History: No Reported History Mother Family Medical History: Cancer Additional Family Medical History / Comment(s): breast cancer (axilla location) dx at age 45. Maternal aunt dx with breast cancer @50, at age 54 from breast cancer Sister(s) Family Medical History: Cancer Additional Family Medical History / Comment(s): at age 8 from Leukemia, Medications and Allergies Home Medications Medication Instructions Recorded Confirmed Type Ferrous Sulfate [Iron (65 MG 325 mg PO DAILY 11/02/17 12/07/19 History Elemental)] Morphine Sulfate ER [Ms Contin] 15 mg PO BID 11/02/17 12/07/19 History glipiZIDE [Glucotrol] 10 mg PO BID 11/02/17 12/07/19 History Sennosides [Senna] 17.4 mg PO DAILY 11/16/17 12/07/19 History L.acidoph,Paracasei, B.lactis 1 cap PO DAILY 04/23/18 12/07/19 History [Probiotic] [place]-3 Fatty Acids [[place]-3] 1,000 mg PO DAILY 04/23/18 12/07/19 History oxyCODONE-APAP 10-325MG [Percocet 1 tab PO QID 04/23/18 12/07/19 History 10-325 mg] Pioglitazone [Actos] 30 mg PO DAILY 05/15/18 12/07/19 History hydroCHLOROthiazide 25 mg PO DAILY 02/06/19 12/07/19 History Ascorbic Acid [Vitamin C] 500 mg PO DAILY 11/21/19 12/07/19 History Baclofen 10 mg PO BID PRN 11/21/19 12/07/19 History Beclomethasone Dip 80 Mcg/Puff 1 puff INHALATION RT-BID 11/21/19 12/07/19 History [Qvar 80 mcg] Cholecalciferol [Vitamin D3 (25 2,000 unit PO DAILY 11/21/19 12/07/19 History Mcg = 1000 Iu)] Cyanocobalamin (Vitamin B-12) 1,000 mcg PO DAILY 11/21/19 12/07/19 History [Vitamin B-12] Magnesium Oxide 400 mg PO DAILY 11/21/19 12/07/19 History Potassium Gluconate 99 mg PO DAILY 11/21/19 12/07/19 History valACYclovir HCL [Valacyclovir] 1,000 mg PO BID 11/21/19 12/07/19 History Ciprofloxacin HCl [Cipro] 500 mg PO Q12H 12/07/19 12/07/19 History Ibuprofen [Motrin] 600 mg PO QID PRN 12/07/19 12/07/19 History Allergies Allergy/AdvReac Type Severity Reaction Status Date / Time adhesive tape Allergy Severe Rash/Hives Verified 12/07/19 23:06 cortisone [Cortisone] Allergy Severe Anaphylaxis Verified 12/07/19 23:06 diphenhydramine HCl Allergy Severe Anaphylaxis Verified 12/07/19 23:06 [From Benadryl] Penicillins Allergy Severe Anaphylaxis Verified 12/07/19 23:06 Sulfa (Sulfonamide Allergy Intermediate Rash/Hives Verified 12/07/19 23:06 Antibiotics) Cephalosporins Allergy Mild Rash/Hives Verified 12/07/19 23:06 doxycycline Allergy Mild Rash/Hives Verified 12/07/19 23:06 Quinolones Allergy Mild Rash/Hives Verified 12/07/19 23:06 [place] And Derivatives Allergy Rash/Hives Verified 12/07/19 23:06 [[place]] Iodine and Iodide Containing Allergy Unknown Verified 12/07/19 23:06 Produc nitrofurantoin AdvReac Abdominal Verified 12/07/19 23:06 [From Macrobid] Pain Physical Exam Vitals: Vital Signs Temp Pulse Pulse Resp BP BP BP 12/08/19 09:00 97.2 F L 64 18 136/85 12/08/19 03:08 97.8 F 86 19 119/85 12/07/19 23:35 97.6 F 81 20 107/74 12/07/19 23:08 97.8 F 80 18 133/97 12/07/19 22:30 18 130/91 12/07/19 22:26 12/07/19 21:04 98 F 90 18 128/90 12/07/19 20:10 97.4 F L 98 26 H 139/90 Pulse Ox 12/08/19 09:00 99 12/08/19 03:08 99 12/07/19 23:35 98 12/07/19 23:08 99 12/07/19 22:30 99 12/07/19 22:26 96 12/07/19 21:04 99 12/07/19 20:10 100 Intake and Output 12/07/19 12/08/19 12/08/19 22:59 06:59 14:59 Intake Total 100 Balance 100 Intake: Oral 100 Other: Voiding Method Toilet Toilet # Voids 1 Weight 160.572 kg 160.572 kg GENERAL: The patient is alert and oriented x3, not in any acute distress. Well developed, well nourished. HEENT: Pupils are round and equally reacting to light. EOMI. No scleral icterus. No conjunctival pallor. Normocephalic, atraumatic. No pharyngeal erythema. No thyromegaly. CARDIOVASCULAR: S1 and S2 present. No murmurs, rubs, or gallops. PULMONARY: Chest is clear to auscultation, no wheezing or crackles. ABDOMEN: Soft, nontender, nondistended, normoactive bowel sounds. No palpable organomegaly. MUSCULOSKELETAL: No joint swelling or deformity. EXTREMITIES: No cyanosis, clubbing, or pedal edema. NEUROLOGICAL: Gross neurological examination did not reveal any focal deficits. SKIN: No rashes. No petechiae Results CBC & Chem 7: 12/07/19 20:07 12/08/19 05:30 Labs: Abnormal Lab Results - Last 24 Hours (Table) 12/07/19 12/07/19 12/07/19 Range/Units 20:07 20:07 21:44 Sodium 133 L (137-145) mmol/L Glucose 347 H (74-99) mg/dL POC Glucose (mg/dL) (75-99) mg/dL Plasma Lactic Acid [place] 2.6 H* (0.7-2.0) mmol/L Magnesium 1.5 L (1.6-2.3) mg/dL Urine Protein Trace H (Negative) Urine Glucose (UA) 4+ H (Negative) Urine Ketones Trace H (Negative) 12/08/19 12/08/19 Range/Units 05:30 07:05 Sodium 134 L (137-145) mmol/L Glucose 252 H (74-99) mg/dL POC Glucose (mg/dL) 254 H (75-99) mg/dL Plasma Lactic Acid [place] (0.7-2.0) mmol/L Magnesium (1.6-2.3) mg/dL Urine Protein (Negative) Urine Glucose (UA) (Negative) Urine Ketones (Negative) Thrombosis Risk Factor Assmnt - Choose All That Apply Each Factor Represents 1 point: Age 41-60 years, Obesity (BMI >25) Thrombosis Risk Factor Assessment Total Risk Factor Score: 2 Thrombosis Risk Factor Assessment Level: Low Risk Assessment and Plan Assessment: Chest pain, rule out cardiac causes high lactic acid, came back to normal. Secondary to dehydration Renal colic with recurrent vomiting Diabetes mellitus, with hyperglycemia History and fibroids Hypertension Seizure disorder Fibromyalgia History of CVA/TIA, with left foot drop Anxiety, not an active issue Obesity with BMI 48 Plan: This is a pleasant 44 years old female who presents because of chest pain. We'll reduce her troponins, EKG. Cardiology consult. We'll continue the patient on IV fluids. Pain management Labs and medication were reviewed.. Continue same treatment. Continue with symptomatic treatment. Resume home medication. Monitor lytes and vitals. DVT and GI prophylaxis. Further recommendations of the clinical course of the patient DVT prophylaxis: Subcutaneous heparin GI Prophylaxis: Pepcid Prognosis is guarded
--- NOTE | 2019-12-08 11:06 | P.CRDCN ---
History of Present Illness Consult date: 12/08/19 Consult reason: chest pain History of present illness: The patient is a 44-year-old female with multiple comorbid conditions, who recently presented to the hospital with new onset of chest discomfort. She states she has been having epigastric burning over the last several weeks on and off in addition to chronic nausea. Yesterday she developed a sharp pain which is reproducible under her right breast. She states she was not exerting herself at the time of this discomfort. She also reports having chronic back and lower abdominal pain due to recent kidney stones. She states she has been taking oral pain medications around the clock, however continues to "not feel well." DIAGNOSTICS: Chest x-ray negative for acute cardiopulmonary process CT of the chest was negative for pulmonary embolism EKG showed sinus rhythm without ST or T-wave changes Laboratory data reviewed: CBC unremarkable. Sodium 133, potassium 3.9, BUN 15, creatinine 0.65, glucose 347, magnesium 1.5, AST 23, ALT 27, troponins negative 3, BNP 64, urine positive for protein, glucose, and ketones. PAST MEDICAL HISTORY: Diabetes mellitus, obesity, kidney stones, hypertension, TIA/CVA REVIEW OF SYSTEMS: No fever or chills. No cough or expectoration. No diaphoresi s. Patient denies headache, dizziness, blurred vision, double vision. Positive for lower abdominal pain and nausea. No vomiting. No hematochezia. No hematemesis. Denies any black stools or blood in his stools. Positive for dysuria. Positive for low back pain. No muscle weakness or numbness. Positive for reproducible chest pain on right chest wall. No shortness of breath PHYSICAL EXAMINATION: This is a 44-year-old obese female in no apparent distress at the time of my examination. HEENT: Head is atraumatic, normocephalic. Pupils are equal, round. Sclerae anicteric. Conjunctivae are clear. Mucous membranes of the mouth are moist. Neck is supple. There is no jugular venous distention. No carotid bruit is heard. CHEST EXAMINATION: Lungs are diminished to auscultation. No chest wall te nderness is noted on palpation or with deep breathing. HEART EXAMINATION: Heart regular rate and rhythm. S1, S2 heard. No murmurs, gallops or rub. ABDOMEN: Soft, nontender. Bowel sounds are heard. No organomegaly noted. EXTREMITIES: 2+ peripheral pulses with no evidence of peripheral edema and no calf tenderness noted. NEUROLOGIC EXAMINATION: Patient is awake, alert and oriented x3. FINAL ASSESSMENT AND PLAN: #1 chest discomfort, atypical in nature #2 diabetes mellitus, uncontrolled #3 hypertension #4 obesity, BMI 48 #5 chronic pain, recent kidney stone #6 hx TIA/CVA, continue daily aspirin PLAN: Continue antihypertensives. Lipid profile to be done. Patient is a diabetic and not currently on statin therapy. Recommend dobutamine stress echocardiogram to rule out cardiac etiology. Patient has multiple risk factors and cannot run on treadmill. Pain management deferred to primary care team. Recommend risk factor modification and may be discharged for outpatient follow-up pending stress test results. Thank you kindly for this consultation. 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 Date of last positivie culture/infection: 07/04/01 MDRO Source:: gallbladder Past Surgical History: Cholecystectomy, Hernia Repair Additional Past Surgical History / Comment(s): CATARACT SURGERY, kidney stents ; Colonoscopies, ventral hernia 08/02/17, Past Anesthesia/Blood Transfusion Reactions: No Reported Reaction Past Psychological History: Anxiety Smoking Status: Never smoker Past Alcohol Use History: None Reported Past Drug Use History: None Reported - Past Family History Father Family Medical History: No Reported History Mother Family Medical History: Cancer Additional Family Medical History / Comment(s): breast cancer (axilla location) dx at age 45. Maternal aunt dx with breast cancer @50, at age 54 from breast cancer Sister(s) Family Medical History: Cancer Additional Family Medical History / Comment(s): at age 8 from Leukemia, Medications and Allergies Home Medications Medication Instructions Recorded Confirmed Type Ferrous Sulfate [Iron (65 MG 325 mg PO DAILY 11/02/17 12/07/19 History Elemental)] Morphine Sulfate ER [Ms Contin] 15 mg PO BID 11/02/17 12/07/19 History glipiZIDE [Glucotrol] 10 mg PO BID 11/02/17 12/07/19 History Sennosides [Senna] 17.4 mg PO DAILY 11/16/17 12/07/19 History L.acidoph,Paracasei, B.lactis 1 cap PO DAILY 04/23/18 12/07/19 History [Probiotic] [place]-3 Fatty Acids [[place]-3] 1,000 mg PO DAILY 04/23/18 12/07/19 History oxyCODONE-APAP 10-325MG [Percocet 1 tab PO QID 04/23/18 12/07/19 History 10-325 mg] Pioglitazone [Actos] 30 mg PO DAILY 05/15/18 12/07/19 History hydroCHLOROthiazide 25 mg PO DAILY 02/06/19 12/07/19 History Ascorbic Acid [Vitamin C] 500 mg PO DAILY 11/21/19 12/07/19 History Baclofen 10 mg PO BID PRN 11/21/19 12/07/19 History Beclomethasone Dip 80 Mcg/Puff 1 puff INHALATION RT-BID 11/21/19 12/07/19 History [Qvar 80 mcg] Cholecalciferol [Vitamin D3 (25 2,000 unit PO DAILY 11/21/19 12/07/19 History Mcg = 1000 Iu)] Cyanocobalamin (Vitamin B-12) 1,000 mcg PO DAILY 11/21/19 12/07/19 History [Vitamin B-12] Magnesium Oxide 400 mg PO DAILY 11/21/19 12/07/19 History Potassium Gluconate 99 mg PO DAILY 11/21/19 12/07/19 History valACYclovir HCL [Valacyclovir] 1,000 mg PO BID 11/21/19 12/07/19 History Ciprofloxacin HCl [Cipro] 500 mg PO Q12H 12/07/19 12/07/19 History Ibuprofen [Motrin] 600 mg PO QID PRN 12/07/19 12/07/19 History Allergies Allergy/AdvReac Type Severity Reaction Status Date / Time adhesive tape Allergy Severe Rash/Hives Verified 12/07/19 23:06 cortisone [Cortisone] Allergy Severe Anaphylaxis Verified 12/07/19 23:06 diphenhydramine HCl Allergy Severe Anaphylaxis Verified 12/07/19 23:06 [From Benadryl] Penicillins Allergy Severe Anaphylaxis Verified 12/07/19 23:06 Sulfa (Sulfonamide Allergy Intermediate Rash/Hives Verified 12/07/19 23:06 Antibiotics) Cephalosporins Allergy Mild Rash/Hives Verified 12/07/19 23:06 doxycycline Allergy Mild Rash/Hives Verified 12/07/19 23:06 Quinolones Allergy Mild Rash/Hives Verified 12/07/19 23:06 [place] And Derivatives Allergy Rash/Hives Verified 12/07/19 23:06 [[place]] Iodine and Iodide Containing Allergy Unknown Verified 12/07/19 23:06 Produc nitrofurantoin AdvReac Abdominal Verified 12/07/19 23:06 [From Macrobid] Pain Physical Exam Vitals: Vital Signs Temp Pulse Pulse Resp BP BP BP 12/08/19 09:00 97.2 F L 64 18 136/85 12/08/19 03:08 97.8 F 86 19 119/85 12/07/19 23:35 97.6 F 81 20 107/74 12/07/19 23:08 97.8 F 80 18 133/97 12/07/19 22:30 18 130/91 12/07/19 22:26 12/07/19 21:04 98 F 90 18 128/90 12/07/19 20:10 97.4 F L 98 26 H 139/90 Pulse Ox 12/08/19 09:00 99 12/08/19 03:08 99 12/07/19 23:35 98 12/07/19 23:08 99 12/07/19 22:30 99 12/07/19 22:26 96 12/07/19 21:04 99 12/07/19 20:10 100 Intake and Output 12/07/19 12/08/19 12/08/19 22:59 06:59 14:59 Intake Total 100 Balance 100 Intake: Oral 100 Other: Voiding Method Toilet Toilet # Voids 1 Weight 160.572 kg 160.572 kg Results 12/07/19 20:07 12/08/19 05:30 Cardiac Enzymes 12/07/19 12/07/19 12/07/19 Range/Units 20:07 20:07 23:32 AST 23 (14-36) U/L Troponin I <0.012 <0.012 (0.000-0.034) ng/mL 12/08/19 Range/Units 03:03 AST (14-36) U/L Troponin I <0.012 (0.000-0.034) ng/mL Coagulation 12/07/19 Range/Units 20:07 PT 9.9 (9.0-12.0) sec APTT 23.1 (22.0-30.0) sec CBC 12/07/19 Range/Units 20:07 WBC 7.3 (3.8-10.6) k/uL RBC 4.63 (3.80-5.40) m/uL Hgb 14.3 (11.4-16.0) gm/dL Hct 41.9 (34.0-46.0) % Plt Count 248 (150-450) k/uL Comprehensive Metabolic Panel 12/07/19 12/08/19 Range/Units 20:07 05:30 Sodium 133 L 134 L (137-145) mmol/L Potassium 3.9 4.1 (3.5-5.1) mmol/L Chloride 100 105 (98-107) mmol/L Carbon Dioxide 24 25 (22-30) mmol/L BUN 15 15 (7-17) mg/dL Creatinine 0.65 0.58 (0.52-1.04) mg/dL Glucose 347 H 252 H (74-99) mg/dL Calcium 9.6 8.9 (8.4-10.2) mg/dL AST 23 (14-36) U/L ALT 27 (4-34) U/L Alkaline Phosphatase 79 (38-126) U/L Total Protein 6.9 (6.3-8.2) g/dL Albumin 3.9 (3.5-5.0) g/dL Current Medications Generic Name Dose Route Start Last Admin Trade Name Freq PRN Reason Stop Dose Admin Acetaminophen 650 mg 12/07/19 22:29 Tylenol Tab PO Q6HR PRN Mild Pain or Fever > 100.5 Aspirin 325 mg 12/08/19 09:00 12/08/19 08:53 Aspirin PO 325 mg DAILY CHELO Administration Baclofen 10 mg 12/08/19 01:00 Lioresal PO BID PRN Muscle Spasm Cholecalciferol 2,000 unit 12/08/19 09:00 12/08/19 08:52 Vitamin D3 (25 Mcg = 1000 Iu) PO 2,000 unit DAILY CHELO Administration Cyanocobalamin 1,000 mcg 12/08/19 09:00 12/08/19 08:52 Vitamin B-12 PO 1,000 mcg DAILY CHELO Administration Famotidine 20 mg 12/08/19 09:00 12/08/19 08:56 Pepcid IV 20 mg Q12HR CHELO Administration Ferrous Sulfate 325 mg 12/08/19 09:00 12/08/19 08:52 Feosol PO 325 mg DAILY CHELO Administration Glipizide 10 mg 12/08/19 09:00 12/08/19 08:53 Glucotrol PO 10 mg BID CHELO Administration Heparin Sodium (Porcine) 5,000 unit 12/08/19 09:00 12/08/19 08:56 Heparin SQ 5,000 unit Q12HR CHELO Administration Hydrochlorothiazide 25 mg 12/08/19 09:00 12/08/19 08:54 Hydrodiuril PO 25 mg DAILY CHELO Administration Sodium Chloride 1,000 mls @ 75 mls/hr 12/08/19 10:30 Saline 0.9% IV .[id number] CHELO Dobutamine HCl/Dextrose 500 mg 250 mls @ 48.172 mls/hr 12/09/19 08:00 / IV Solution IV 12/09/19 13:11 .Q5H12M ONE Protocol 10 MCG/KG/MIN Ketorolac Tromethamine 30 mg 12/08/19 10:24 Toradol IVP 12/13/19 10:25 Q8HR PRN Pain Morphine Sulfate 4 mg 12/07/19 22:29 12/08/19 03:18 Morphine Sulfate (Inj) IV 4 mg Q4HR PRN Administration Severe Pain Morphine Sulfate 15 mg 12/08/19 09:00 12/08/19 08:49 Ms Contin PO 15 mg BID CHELO Administration Naloxone HCl 0.2 mg 12/07/19 22:29 Narcan IV Q2M PRN Opioid Reversal Oxycodone/Acetaminophen 1 each 12/08/19 09:00 12/08/19 08:51 Percocet 10-325 PO 1 each QID CHELO Administration Pioglitazone HCl 30 mg 12/08/19 09:00 12/08/19 08:53 Actos PO 30 mg DAILY CHELO Administration Senna 17.4 mg 12/08/19 09:00 12/08/19 08:52 Senokot PO 17.2 mg DAILY CHELO Administration Valacyclovir HCl 1,000 mg 12/08/19 09:00 12/08/19 08:53 Valtrex PO 1,000 mg BID CHELO Administration Intake and Output 12/07/19 12/08/19 12/08/19 22:59 06:59 14:59 Intake Total 100 Balance 100 Intake: Oral 100 Other: Voiding Method Toilet Toilet # Voids 1 Weight 160.572 kg 160.572 kg 12/07/19 20:07 12/08/19 05:30
[2019-12-08 11:38] LABS: Glucose,Whole Blood 224 mg/dL (75-99)
[2019-12-08 11:44] LABS: Cholesterol 166 mg/dL (<200); HDL Cholesterol 35 mg/dL (40-60); LDL Cholesterol,Calculated 104 mg/dL (0-99); Triglycerides 133 mg/dL (<150)
[2019-12-08] MEDS: SODIUM CHLORIDE 0.9% 1,000 ML IV SCH (11:58)
[2019-12-08] MEDS ORDERED: ONDANSETRON 4 MG TAB PO PRN (12:43)
[2019-12-08 16:01] LABS: Glucose,Whole Blood 167 mg/dL (75-99)
[2019-12-08 22:17] LABS: Glucose,Whole Blood 224 mg/dL (75-99)
[2019-12-09] MEDS ORDERED: LORazepam 2 MG/ML INJ ONE ×2 (04:51→04:52)
[2019-12-09 06:07] LABS: Glucose,Whole Blood 187 mg/dL (75-99)
[2019-12-09] MEDS: SODIUM CHLORIDE 0.9% 1,000 ML IV SCH ×2 (06:10→13:15)
[2019-12-09] MEDS ORDERED: DOBUTamine DRIP for NUC MED 500 MG in DEXTROSE/WATER 1 250ML.BAG IV ONE (08:00)
[2019-12-09] MEDS: ASPIRIN 325 MG TAB PO SCH (09:46)
[2019-12-09] MEDS: CHOLECALCIFEROL 1,000 UNIT TAB PO SCH (09:47)
[2019-12-09] MEDS: FERROUS SULFATE 325 MG TAB PO SCH (09:47)
[2019-12-09] MEDS: CYANOCOBALAMIN 500 MCG TAB PO SCH (09:47)
[2019-12-09] MEDS: SENNOSIDES 8.6 MG TAB PO SCH (09:47)
[2019-12-09] MEDS: HEPARIN SODIUM,PORCINE 5,000 UNIT/ML 1 ML VIAL SQ SCH ×2 (09:48→21:40)
[2019-12-09] MEDS: MORPHINE SULFATE ER 15 MG TABLET PO SCH ×2 (09:48→21:40)
[2019-12-09] MEDS: FAMOTIDINE 20 MG/2 ML VIAL IV SCH ×2 (09:48→21:39)
[2019-12-09] MEDS: hydroCHLOROthiazide 25 MG TAB PO SCH (09:49)
[2019-12-09] MEDS: oxyCODONE-APAP 10-325MG 1 EACH TAB PO SCH ×3 (09:50→18:05)
[2019-12-09] MEDS: valACYclovir HCL 1,000 MG TABLET PO SCH ×2 (09:51→21:41)
[2019-12-09] MEDS: PIOGLITAZONE 30 MG TAB PO SCH (09:55)
[2019-12-09] MEDS: glipiZIDE 10 MG TAB PO SCH ×2 (09:55→21:40)
--- NOTE | 2019-12-09 11:34 | P.PN ---
Subjective This is a pleasant 44-year-old female past medical history significant for hypertension, diabetes mellitus, morbid obesity and remote history of seizures in the past. She was scheduled to undergo dobutamine stress echocardiogram secondary to atypical chest discomfort on admission however she had a seizure this morning at 5 AM where she was tonic-clonic received Ativan. She is seen and examined this morning sitting up in bed in no acute distress. She states she just feels tired. She has had no further symptoms of chest discomfort. Blood pressure 122/85 heart rate 91 afebrile maintaining oxygen saturation on nasal cannula. Currently maintained on aspirin 325 mg daily and hydrochlorothiazide 25 mg daily. GENERAL: Well-appearing, well-nourished and in no acute distress. NECK: Supple without JVD or thyromegaly. LUNGS: Breath sounds clear to auscultation bilaterally. Respiration equal and unlabored. No wheezes, rales or rhonchi. HEART: Regular rate and rhythm without murmurs, rubs or gallops. S1 and S2 heard. EXTREMITIES: Normal range of motion, no edema. No clubbing or cyanosis. Peripheral pulses intact. ASSESSMENT Chest pain, atypical. An acute coronary event has been ruled out. Hypertension Diabetes mellitus Morbid obesity, BMI 48 PLAN Given her seizure this morning and atypical presentation for her chest pain we will cancel the stress test today pending neurology evaluation. Stress test will be done in the office as an outpatient. Nurse Practitioner note has been reviewed, I agree with a documented findings and plan of care. Patient was seen and examined. Objective - Vital Signs Vital signs: Vital Signs Temp 97.9 F 12/09/19 07:57 Pulse 91 12/09/19 07:57 Resp 20 12/09/19 09:00 BP 122/85 12/09/19 07:57 Pulse Ox 98 12/09/19 07:57 Intake & Output 12/08/19 12/09/19 12/09/19 18:59 06:59 18:59 Intake Total 640 600 840 Balance 640 600 840 Intake: IV 600 Sodium Chloride 0.9% 1, 600 000 ml @ 75 mls/hr IV . [id number] CHELO Rx#:[id number] Intake, IV Titration 600 Amount Sodium Chloride 0.9% 1, 600 000 ml @ 75 mls/hr IV . [id number] CHELO Rx#:[id number] Oral 640 240 Other: Voiding Method Toilet Toilet Toilet # Voids 1 - Labs CBC & Chem 7: 12/07/19 20:07 12/08/19 05:30 Labs: Abnormal Lab Results - Last 24 Hours (Table) 12/08/19 12/08/19 12/08/19 Range/Units 05:31 11:32 15:56 POC Glucose (mg/dL) 224 H 167 H (75-99) mg/dL LDL Cholesterol, Calc 104 H (0-99) mg/dL HDL Cholesterol 35 L (40-60) mg/dL 12/08/19 12/09/19 Range/Units 22:05 06:05 POC Glucose (mg/dL) 224 H 187 H (75-99) mg/dL LDL Cholesterol, Calc (0-99) mg/dL HDL Cholesterol (40-60) mg/dL
[2019-12-09 11:46] LABS: Glucose,Whole Blood 269 mg/dL (75-99)
[2019-12-09] MEDS: INSULIN ASPART (NovoLOG) 100 UNIT/ML VIAL SQ SCH ×3 (12:22→21:37)
[2019-12-09] MEDS: ATORVASTATIN 40 MG TAB PO SCH (12:25)
--- NOTE | 2019-12-09 12:56 | US ---
EXAMINATION TYPE: US kidneys/renal and bladder DATE OF EXAM: 12/09/2019 COMPARISON: NONE CLINICAL HISTORY: Hydronephrosis. hydronephrosis EXAM MEASUREMENTS: Right Kidney: 12.3 x 6.1 x 5.9 cm Left Kidney: 12.6 x 5.8 x 5.6 cm Right Kidney: No evidence of hydronephrosis Left Kidney: No evidence of hydronephrosis Bladder: not fully distended and therefore limited. Bilateral Jets seen: no IMPRESSION: No evidence of hydronephrosis or nephrolithiasis.
[2019-12-09 14:03] VITALS: BMI 47.9
[2019-12-09 15:03] VITALS: RESP 16
[2019-12-09 16:33] LABS: Glucose,Whole Blood 125 mg/dL (75-99)
--- NOTE | 2019-12-09 18:09 | EEG ---
ELECTROENCEPHALOGRAM REPORT DATE OF SERVICE: 12/09/2019 PREAMBLE: This is a 44-year-old female who has presented with a new-onset seizure. The patient has a history of seizures in her childhood. EEG FINDINGS: This is a 21-channel routine EEG recording in a patient utilizing 10-20 international system with referential and bipolar montages. The background consists of well- developed, moderately well-regulated, mixed frequencies of 8 hertz alpha with some theta activity. Frequent intermittent generalized rhythmic delta activity with frontal predominance was seen frequently during the study. Different stages of sleep were not seen. Photic driving response was not seen. Hyperventilation revealed no abnormalities. No definitive focal or generalized epileptiform activity was seen. IMPRESSION: This is an abnormal EEG due to: 1. Mild background slowing. 2. Generalized intermittent rhythmic delta activity with frontal predominance. Clinical correlation: This EEG is suggestive of generalized cerebral dysfunction as can be seen with encephalopathy, of a mild to moderate degree, which may be related to toxic-metabolic, degenerative or vascular etiology. The rhythmic frontal activity may suggest convulsive tendency. No definitive epileptiform activity was seen. MMODL / IJN: [id number] / [facility]
--- NOTE | 2019-12-09 18:30 | P.CNNES ---
History of Present Illness Consult date: 12/09/19 Requesting physician: Oliva Stafford Reason for Consult: Seizure activity History of Present Illness: Patient is a 44-year-old female, admitted to the hospital on 12/07/2023 substernal and right-sided chest pain with dyspnea. Patient has known coronary artery disease. Patient also has history of remote seizures in the past. She was scheduled for dobutamine stress echocardiogram secondary to atypical chest discomfort on admission, however she had a seizure this morning at 5 AM where she had a tonic-clonic seizure. According to the nurse report, she heard a loud yell and went to patient's room to find her having seizure-like activity. Patient was foaming from her mouth. Patient's seizure lasted ap proximately 1 minute. She was given 2 mg Ativan IV and patient was post ictal and was very confused. Her blood pressure was 136/89, heart rate 111, oxygen 100% on 2 L. Patient tells me that she has seizure disorder since she was born. Her seizures continued to age 14. Patient tells me that she was treated with Valium and Neurontin since she was a child. She was treated with these medications all the way until 2 years ago when the Valium was discontinued. Patient states that about a month after stopping Valium, she had a "stress attack". She states she had a stroke, stress attack and she stopped breathing. She had another similar spell last 2018 that lasted for less than 1 minute. This is her third event that happened last night. Patient states that she has been off Valium for over 2 years, therefore is not a withdrawal. Patient currently on not any antiepileptic medication. Patient apparently is on morphine sulfate 50 mg twice a day, Percocet 4 times a day. Patient had a negative computed tomography scan of head on 06/16/2019, performed for "headache". She had another computed tomography scan of head on 07/13/2017 performed for "seizure and left-sided weakness" Patient denies any alcohol, tobacco. Denies any marijuana use. Patient states that she used to have daily migraines for years. After she underwent her ear piercing, she stopped having migraines 5 years ago. If she gets any headache, she states that she rotates her ear piercing and the headache resolves. If it does not respond, then she knows that it is a "sinus headache", not her migrai ne. Patient has no children, lives with her boyfriend. Patient also has fibromyalgia for which she is on baclofen for almost a year. Patient has diabetes, her last hemoglobin A1c 10.0 on 12/08/2019. Vitamin B12 583. Review of Systems As per history of present illness. All other review of systems completely unremarkable. Patient denies any diplopia, loss of vision, hoarseness or throat dysphagia. Denies any chest pain to. Denies abdominal pain, nausea vomiting diarrhea. 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 Date of last positivie culture/infection: 07/04/01 MDRO Source:: gallbladder Past Surgical History: Cholecystectomy, Hernia Repair Additional Past Surgical History / Comment(s): CATARACT SURGERY, kidney stents ; Colonoscopies, ventral hernia 08/02/17, Past Anesthesia/Blood Transfusion Reactions: No Reported Reaction Past Psychological History: Anxiety Smoking Status: Never smoker Past Alcohol Use History: None Reported Past Drug Use History: None Reported - Past Family History Father Family Medical History: No Reported History Mother Family Medical History: Cancer Additional Family Medical History / Comment(s): breast cancer (axilla location) dx at age 45. Maternal aunt dx with breast cancer @50, at age 54 from breast cancer Sister(s) Family Medical History: Cancer Additional Family Medical History / Comment(s): at age 8 from Leukemia, Medications and Allergies Home Medications Medication Instructions Recorded Confirmed Type Ferrous Sulfate [Iron (65 MG 325 mg PO DAILY 11/02/17 12/07/19 History Elemental)] Morphine Sulfate ER [Ms Contin] 15 mg PO BID 11/02/17 12/07/19 History glipiZIDE [Glucotrol] 10 mg PO BID 11/02/17 12/07/19 History Sennosides [Senna] 17.4 mg PO DAILY 11/16/17 12/07/19 History L.acidoph,Paracasei, B.lactis 1 cap PO DAILY 04/23/18 12/07/19 History [Probiotic] Victoria-3 Fatty Acids [Victoria-3] 1,000 mg PO DAILY 04/23/18 12/07/19 History oxyCODONE-APAP 10-325MG [Percocet 1 tab PO QID 04/23/18 12/07/19 History 10-325 mg] Pioglitazone [Actos] 30 mg PO DAILY 05/15/18 12/07/19 History hydroCHLOROthiazide 25 mg PO DAILY 02/06/19 12/07/19 History Ascorbic Acid [Vitamin C] 500 mg PO DAILY 11/21/19 12/07/19 History Baclofen 10 mg PO BID PRN 11/21/19 12/07/19 History Beclomethasone Dip 80 Mcg/Puff 1 puff INHALATION RT-BID 11/21/19 12/07/19 History [Qvar 80 mcg] Cholecalciferol [Vitamin D3 (25 2,000 unit PO DAILY 11/21/19 12/07/19 History Mcg = 1000 Iu)] Cyanocobalamin (Vitamin B-12) 1,000 mcg PO DAILY 11/21/19 12/07/19 History [Vitamin B-12] Magnesium Oxide 400 mg PO DAILY 11/21/19 12/07/19 History Potassium Gluconate 99 mg PO DAILY 11/21/19 12/07/19 History valACYclovir HCL [Valacyclovir] 1,000 mg PO BID 11/21/19 12/07/19 History Atorvastatin [Lipitor] 40 mg PO DAILY #90 tab 12/09/19 Rx Aspirin 81 mg PO DAILY 30 Days #30 chew 12/10/19 Rx levETIRAcetam [Keppra] 500 mg PO Q12HR 30 Days #60 tab 12/10/19 Rx Allergies Allergy/AdvReac Type Severity Reaction Status Date / Time adhesive tape Allergy Severe Rash/Hives Verified 12/07/19 23:06 cortisone [Cortisone] Allergy Severe Anaphylaxis Verified 12/07/19 23:06 diphenhydramine HCl Allergy Severe Anaphylaxis Verified 12/07/19 23:06 [From Benadryl] Penicillins Allergy Severe Anaphylaxis Verified 12/07/19 23:06 Sulfa (Sulfonamide Allergy Intermediate Rash/Hives Verified 12/07/19 23:06 Antibiotics) Cephalosporins Allergy Mild Rash/Hives Verified 12/07/19 23:06 doxycycline Allergy Mild Rash/Hives Verified 12/07/19 23:06 Quinolones Allergy Mild Rash/Hives Verified 12/07/19 23:06 San [place] And Derivatives Allergy Rash/Hives Verified 12/07/19 23:06 [[place]] Iodine and Iodide Containing Allergy Unknown Verified 12/07/19 23:06 Produc nitrofurantoin AdvReac Abdominal Verified 12/07/19 23:06 [From Macrobid] Pain Physical Examination - Vital Signs Vital Signs: Vital Signs Temp Pulse Resp BP Pulse Ox 12/09/19 09:00 20 12/09/19 07:57 97.9 F 91 20 122/85 98 12/09/19 03:45 97.5 F L 64 18 114/75 98 12/08/19 21:45 97.3 F L 77 18 125/82 98 12/08/19 18:20 64 12/08/19 15:00 97.8 F 64 18 140/84 99 Intake and Output 12/08/19 12/09/19 12/09/19 22:59 06:59 14:59 Intake Total 400 600 840 Balance 400 600 840 Intake: IV 600 Sodium Chloride 0.9% 1, 600 000 ml @ 75 mls/hr IV . [id number] [facility] Rx#:[id number] Intake, IV Titration 600 Amount Sodium Chloride 0.9% 1, 600 000 ml @ 75 mls/hr IV . [id number] [facility] Rx#:[id number] Oral 400 240 Other: Voiding Method Toilet Toilet Toilet # Voids 1 On examination patient is a middle aged female, moderately obese, in no acute distress. Patient is alert and awake fairly well oriented. Speech and language functions are normal. Attention, concentration and fund of knowledge is somewhat limited. Cranial examination pupils are round and reactive to light, visual ramírez are full on confrontation Extraocular muscles are intact with no nystagmus. Face is symmetric, tongue protrudes to the midline. Patient has some tongue bite genoveva on the top of the tongue, but there is no associated bruise or evidence of recent trauma. Palatal elevation sensation normal. Hearing and shoulder shrug normal. On muscle strength testing there is no pron ator drift and the strength is normal in arms and legs distally and proximally. Reflexes are 1+ and plantars are downgoing. Sensory touch is equal. No ataxia for [id number] testing. Tone and bulk of muscles normal. Gait deferred. No carotid bruit or [place], peripheral pulses present. Abdomen soft nontender. Chest clear. Results - Laboratory Findings CBC and BMP: 12/07/19 20:07 12/08/19 05:30 Abnormal Lab Findings: Abnormal Labs 12/07/19 12/07/19 12/07/19 20:07 20:07 21:44 Sodium 133 L Glucose 347 H POC Glucose (mg/dL) Hemoglobin A1c Plasma Lactic Acid Oliverio 2.6 H* Magnesium 1.5 L LDL Cholesterol, Calc HDL Cholesterol Urine Protein Trace H Urine Glucose (UA) 4+ H Urine Ketones Trace H 12/08/19 12/08/19 12/08/19 05:30 05:30 05:31 Sodium 134 L Glucose 252 H POC Glucose (mg/dL) Hemoglobin A1c 10.0 H Plasma Lactic Acid Oliverio Magnesium LDL Cholesterol, Calc 104 H HDL Cholesterol 35 L Urine Protein Urine Glucose (UA) Urine Ketones 12/08/19 12/08/19 12/08/19 07:05 11:32 15:56 Sodium Glucose POC Glucose (mg/dL) 254 H 224 H 167 H Hemoglobin A1c Plasma Lactic Acid Oliverio Magnesium LDL Cholesterol, Calc HDL Cholesterol Urine Protein Urine Glucose (UA) Urine Ketones 12/08/19 12/09/19 12/09/19 22:05 06:05 11:41 Sodium Glucose POC Glucose (mg/dL) 224 H 187 H 269 H Hemoglobin A1c Plasma Lactic Acid Oliverio Magnesium LDL Cholesterol, Calc HDL Cholesterol Urine Protein Urine Glucose (UA) Urine Ketones Assessment and Plan Assessment: * New onset seizure. Patient has history of possible seizures in childhood, but has been in remission since age 14. She had a similar spell 2 years ago, and then also 8 months ago. * Atypical chest pain * Hypertension * Diabetes, poorly controlled * Morbid obesity, BMI 48. Plan: * Patient had an EEG performed today, which revealed mild background slowing and generalized intermittent rhythmic delta activity with frontal predominance. This is suggestive of generalized cerebral dysfunction, as can be seen with encephalopathy of mild to moderate degree or related to structural abnormality. No epileptiform activity was seen. However the rhythmic delta activity may imply convulsive tendency. * Patient had 3 spells in the last couple years. We will start patient on Keppra 500 mg twice a day. Possible side effects were discussed. * Recommend follow-up with neurologist locally as outpatient. * Neurologically clear.
[2019-12-09 21:36] LABS: Glucose,Whole Blood 251 mg/dL (75-99)
[2019-12-09] MEDS ORDERED: INSULIN DETEMIR (LEVEMIR) 100 UNIT/ML SYR SQ SCH (22:15)
--- NOTE | 2019-12-09 22:19 | P.PN ---
Subjective Progress Note Date: 12/09/19 Principal diagnosis: Atypical chest pain. New onset seizures. This is a pleasant 44 years old female with multiple medical problems as below. Her PCP is Dr. You, also she follows up with urologist from outside system, she sees pain management doctor and [employer] CO[employer] for her fibroids. She came to the hospital because of chest tightness of one-day duration, yesterday patient also could not prevent got dizzy. Her chest pain was central, nonradiating about 10/10 in severity this morning she symptoms looks relax in bed and states her chest pain is about 8/10, it felt like sharp associated with dyspnea but no coughing, no palpitation. Also she has history of bilateral kidney stone, which were causing her bilateral back pain since September and gradually getting worse, over the last week she started having vomiting whenever she eats She denies dysuria or urgency, she try to avoid peeing, which causes her vomiting, urinalysis shows no infection but to continue area Vitals are stable, CBC, INR, BMP, liver enzymes are unremarkable. Lactic acid was elevated at 2.6 came back to normal at 1.1. Serial troponins are negative. Chest CTA: No PE. Chest x-ray: No acute process. test is negative In the emergency room she got aspirin, Pepcid, morphine and magnesium sulfate. Also she got 1 L of normal saline. 12/09/2019 Patient is currently lying in the bed comfortably. Awake alert oriented x3. Patient states that she did have seizure episode this morning around 5 AM. Tonic-clonic seizures and received Ativan. ACS rule out and patient is scheduled for dobutamine stress echocardiogram today due to atypical chest pain which was canceled due to new episode of seizures. Neurology was consulted. Cardiology is on board. Patient has been afebrile. No cough or sputum production. No chest pain or shortness of breath currently. Blood sugar is 254 this morning. A1c level is 10.0 Current medications reviewed. Objective - Vital Signs Vital signs: Vital Signs Temp 97.5 F L 12/09/19 20:42 Pulse 80 12/09/19 20:42 Resp 16 12/09/19 15:00 BP 127/83 12/09/19 20:42 Pulse Ox 100 12/09/19 20:42 Intake & Output 12/09/19 12/09/19 12/10/19 06:59 18:59 06:59 Intake Total 600 1540 Balance 600 1540 Weight 160.572 kg Intake: IV 1200 Sodium Chloride 0.9% 1, 1200 000 ml @ 75 mls/hr IV . [id number] [facility] Rx#:[id number] Intake, IV Titration 600 Amount Sodium Chloride 0.9% 1, 600 000 ml @ 75 mls/hr IV . [id number] [facility] Rx#:[id number] Oral 340 Other: Voiding Method Toilet Toilet Toilet # Voids 1 1 - Exam GENERAL: The patient is alert and oriented x3, not in any acute distress. Well developed, well nourished. HEENT: Pupils are round and equally reacting to light. EOMI. No scleral icterus. No conjunctival pallor. Normocephalic, atraumatic. No pharyngeal erythema. No thyromegaly. CARDIOVASCULAR: S1 and S2 present. No murmurs, rubs, or gallops. PULMONARY: Chest is clear to auscultation, no wheezing or crackles. ABDOMEN: Soft, nontender, nondistended, normoactive bowel sounds. No palpable organomegaly. MUSCULOSKELETAL: No joint swelling or deformity. EXTREMITIES: No cyanosis, clubbing, or pedal edema. NEUROLOGICAL: Gross neurological examination did not reveal any focal deficits. SKIN: No rashes. No petechiae - Labs CBC & Chem 7: 12/07/19 20:07 12/08/19 05:30 Labs: Abnormal Lab Results - Last 24 Hours (Table) 12/08/19 12/08/19 12/09/19 Range/Units 05:30 22:05 06:05 POC Glucose (mg/dL) 224 H 187 H (75-99) mg/dL Hemoglobin A1c 10.0 H (4.0-6.0) % 12/09/19 12/09/19 12/09/19 Range/Units 11:41 16:31 21:23 POC Glucose (mg/dL) 269 H 125 H 251 H (75-99) mg/dL Hemoglobin A1c (4.0-6.0) % Assessment and Plan Assessment: Chest pain, ruled out ACS Stress test as an outpatient New onset seizure. Patient has history of possible seizures in childhood, but has been in remission since age 14. She had a similar spell 2 years ago, and then also 8 months ago. high lactic acid, came back to normal. Secondary to dehydration Renal colic with recurrent vomiting Diabetes mellitus, with hyperglycemia A1 C 10.0 History and fibroids Hypertension Seizure disorder Fibromyalgia History of CVA/TIA, with left foot drop Anxiety, not an active issue Obesity with BMI 48 Plan: This is a pleasant 44 years old female who presents because of chest pain. Cardiology is following. Patient was seen by neurology due to new onset seizures and was started on Keppra 5 mg twice daily. We will add Levemir 10 units at bedtime for better blood sugar control. We'll continue the patient on IV fluids. Pain management Labs and medication were reviewed.. Continue same treatment. Continue with symptomatic treatment. Resume home medication. Monitor lytes and vitals. DVT and GI prophylaxis. Further recommendations of the clinical course of the patient DVT prophylaxis: Subcutaneous heparin GI Prophylaxis: Pepcid Prognosis is guarded Time with Patient: Greater than 30
[2019-12-10] MEDS: oxyCODONE-APAP 10-325MG 1 EACH TAB PO SCH ×3 (00:09→12:27)
[2019-12-10] MEDS: SODIUM CHLORIDE 0.9% 1,000 ML IV SCH (05:02)
[2019-12-10 06:25] LABS: Glucose,Whole Blood 120 mg/dL (75-99)
[2019-12-10] MEDS: INSULIN ASPART (NovoLOG) 100 UNIT/ML VIAL SQ SCH ×2 (06:27→12:13)
[2019-12-10 08:10] VITALS: BP 120/86; TEMP 97.6
[2019-12-10] MEDS: MORPHINE SULFATE ER 15 MG TABLET PO SCH (08:39)
[2019-12-10] MEDS: ATORVASTATIN 40 MG TAB PO SCH (08:39)
[2019-12-10] MEDS: CHOLECALCIFEROL 1,000 UNIT TAB PO SCH (08:39)
[2019-12-10] MEDS: SENNOSIDES 8.6 MG TAB PO SCH (08:40)
[2019-12-10] MEDS: CYANOCOBALAMIN 500 MCG TAB PO SCH (08:43)
[2019-12-10] MEDS: FERROUS SULFATE 325 MG TAB PO SCH (08:43)
[2019-12-10] MEDS: valACYclovir HCL 1,000 MG TABLET PO SCH (08:43)
[2019-12-10] MEDS: glipiZIDE 10 MG TAB PO SCH (08:44)
[2019-12-10] MEDS: hydroCHLOROthiazide 25 MG TAB PO SCH (08:44)
[2019-12-10] MEDS: PIOGLITAZONE 30 MG TAB PO SCH (08:44)
[2019-12-10] MEDS: FAMOTIDINE 20 MG/2 ML VIAL IV SCH (08:46)
[2019-12-10] MEDS: HEPARIN SODIUM,PORCINE 5,000 UNIT/ML 1 ML VIAL SQ SCH (08:46)
[2019-12-10] MEDS ORDERED: levETIRAcetam 500 MG TAB PO SCH (09:00)
[2019-12-10] MEDS ORDERED: ASPIRIN 81 MG PO SCH (09:00)
[2019-12-10 11:22] VITALS: PULSE 79
[2019-12-10 11:41] LABS: Glucose,Whole Blood 182 mg/dL (75-99)
--- NOTE | 2019-12-10 18:22 | P.PN ---
Subjective Progress Note Date: 12/10/19 Late entry Patient was seen before she was discharged. Patient offers no complaints. Wants to go home. Objective - Vital Signs Vital signs: Vital Signs Temp 97.6 F 12/10/19 08:09 Pulse 79 12/10/19 11:21 Resp 16 12/10/19 09:00 BP 120/86 12/10/19 08:09 Pulse Ox 96 12/10/19 11:21 Intake & Output 12/09/19 12/10/19 12/10/19 18:59 06:59 18:59 Intake Total 1540 200 600 Output Total 300 Balance 1540 -100 600 Weight 160.572 kg Intake: IV 1200 600 Sodium Chloride 0.9% 1, 1200 600 000 ml @ 75 mls/hr IV . [id number] [facility] Rx#:[id number] Oral 340 200 Output: Urine 300 Other: Voiding Method Toilet Toilet Toilet # Voids 1 1 - Exam Patient's sitting on the side of the bed. Mental status, cranial nerves and strength is normal. - Labs CBC & Chem 7: 12/07/19 20:07 12/08/19 05:30 Labs: Abnormal Lab Results - Last 24 Hours (Table) 12/09/19 12/10/19 12/10/19 Range/Units 21:23 06:24 11:39 POC Glucose (mg/dL) 251 H 120 H 182 H (75-99) mg/dL Assessment and Plan Assessment: * New onset seizure. Patient has history of possible seizures in childhood, but has been in remission since age 14. She had a similar spell 2 years ago, and then also 8 months ago. * Atypical chest pain * Hypertension * Diabetes, poorly controlled * Morbid obesity, BMI 48. Plan: * EEG revealed mild background slowing and generalized intermittent rhythmic delta activity with frontal predominance. This suggestive of generalized cerebral dysfunction, as can be seen with encephalopathy of mild to moderate degree or related to structural abnormality. No epileptiform activity was seen. However the rhythmic delta activity may imply convulsive tendency. * Patient had 3 spells in the last couple years. We will start patient on Keppra 500 mg twice a day. Possible side effects were discussed. * Recommend follow-up with neurologist locally as outpatient. No driving, unless patient has followed up with her neurologist and cleared by her neurologist. * Neurologically clear for discharge.
--- NOTE | 2019-12-11 09:22 | P.DS ---
Providers Date of admission: 12/07/19 22:31 Expected date of discharge: 12/10/19 Attending physician: Neena Fischer Consults: 12/07/19 22:30 Consult Physician Routine Consulting Provider: Baldev Singletary Consult Reason/Comments: cp Do you want consulting provider notified?: Yes 12/09/19 08:04 Consult Physician Urgent Consulting Provider: Jamie Miller Consult Reason/Comments: seizure activity Do you want consulting provider notified?: Yes Primary care physician: Marleny Farrell Hospital Course: Final diagnosis Chest pain, ruled out ACS, Stress test as an outpatient New onset seizure. Patient has history of possible seizures in childhood, but has been in remission since age 14. She had a similar spell 2 years ago, and then also 8 months ago and states was stress-induced high lactic acid, came back to normal. Secondary to dehydration Renal colic with recurrent vomiting Diabetes mellitus, with hyperglycemia A1 C 10.0 History and fibroids Hypertension Seizure disorder Fibromyalgia History of CVA/TIA, with left foot drop Anxiety, not an active issue Obesity with BMI 48 Discharge disposition Patient is being discharged in a stable condition with guarded prognosis to home. Patient will follow-up with Dr. Marleny Farrell upon discharge. Patient also instructed to follow-up with cardiology to schedule outpatient stress test along with neurology Dr. Watson upon discharge. Patient will continue on oral Keppra 500 mg twice daily. Total time taken is 35 minutes. History of present illness This is an 44-year-old female who was recently admitted with chest tightness with some dizziness and was being closely monitored. Patient was seen and evaluated by cardiology recommending stress test although during hospitalization patient had a brief episode of seizure-like activity while sleeping and neurology was consulted. She states she had a history of this about 2 years ago which was stress-induced hasn't been on any antiseizure medications. Patient states this all started when she was taken off of her Valium. Patient underwent EEG showing mild background slowing with generalized intermittent rhythmic delta activity within the frontal predominance to correlate for suggestive generalized cerebral dysfunction as seen with those who have encephalopathy of mild to moderate degree, and no definitive epileptiform activity was noted. Patient was following with Dr. Mittal in the outpatient setting although was released from the practice. Patient will follow up with neurology in the outpatient setting and was initiated on Keppra 500 mg twice daily and will continue. Patient also instructed due to [place] laws patient is not to be driving until neurologically cleared. [place] laws state at least 6 months of no driving. Patient instructed to follow up with neurology to discuss with them about this as patient does deliveries as a full-time job. Patient verbalized understanding. A work note was given so the patient can follow up with neurology prior to returning to work. Cardiology evaluated the patient and patient will follow-up with cardiology in the outpatient setting for a stress test. No reports of dizziness or syncopal episodes noted. Currently no reports of chest pain, shortness of breath, or palpitations. Patient is afebrile. No reports of nausea or vomiting and patient is tolerating diet. Guarded prognosis. On exam vital signs are stable. Temp is 97.6F, pulse is 84, respirations are 16, blood pressure is 120/86, oxygen saturation is 96% on room air. Cardio S1, S2 are muffled. Respiratory shows diminished breath sounds at the bases with a few scattered rhonchi noted. Abdomen is soft, obese, and nontender. Nervous system shows no focal deficits. Please refer to medication reconciliation sheet for a list of medications. Patient Condition at Discharge: Stable Plan - Discharge Summary Discharge Rx Participant: No New Discharge Prescriptions: New Atorvastatin [Lipitor] 40 mg PO DAILY #90 tab Aspirin 81 mg PO DAILY 30 Days #30 chew levETIRAcetam [Keppra] 500 mg PO Q12HR 30 Days #60 tab Continue Morphine Sulfate ER [Ms Contin] 15 mg PO BID Ferrous Sulfate [Iron (65 MG Elemental)] 325 mg PO DAILY glipiZIDE [Glucotrol] 10 mg PO BID Sennosides [Senna] 17.4 mg PO DAILY oxyCODONE-APAP 10-325MG [Percocet 10-325 mg] 1 tab PO QID [place]-3 Fatty Acids [[place]-3] 1,000 mg PO DAILY L.acidoph,Paracasei, B.lactis [Probiotic] 1 cap PO DAILY Pioglitazone [Actos] 30 mg PO DAILY hydroCHLOROthiazide 25 mg PO DAILY Ascorbic Acid [Vitamin C] 500 mg PO DAILY Potassium Gluconate 99 mg PO DAILY Magnesium Oxide 400 mg PO DAILY Cyanocobalamin (Vitamin B-12) [Vitamin B-12] 1,000 mcg PO DAILY Cholecalciferol [Vitamin D3 (25 Mcg = 1000 Iu)] 2,000 unit PO DAILY valACYclovir HCL [Valacyclovir] 1,000 mg PO BID Baclofen 10 mg PO BID PRN PRN Reason: Muscle Spasm Beclomethasone Dip 80 Mcg/Puff [Qvar 80 mcg] 1 puff INHALATION RT-BID Discontinued Ciprofloxacin HCl [Cipro] 500 mg PO Q12H Ibuprofen [Motrin] 600 mg PO QID PRN PRN Reason: Pain Discharge Medication List Ferrous Sulfate [Iron (65 MG Elemental)] 325 mg PO DAILY 11/02/17 [History] Morphine Sulfate ER [Ms Contin] 15 mg PO BID 11/02/17 [History] glipiZIDE [Glucotrol] 10 mg PO BID 11/02/17 [History] Sennosides [Senna] 17.4 mg PO DAILY 11/16/17 [History] L.acidoph,Paracasei, B.lactis [Probiotic] 1 cap PO DAILY 04/23/18 [History] [place]-3 Fatty Acids [[place]-3] 1,000 mg PO DAILY 04/23/18 [History] oxyCODONE-APAP 10-325MG [Percocet 10-325 mg] 1 tab PO QID 04/23/18 [History] Pioglitazone [Actos] 30 mg PO DAILY 05/15/18 [History] hydroCHLOROthiazide 25 mg PO DAILY 02/06/19 [History] Ascorbic Acid [Vitamin C] 500 mg PO DAILY 11/21/19 [History] Baclofen 10 mg PO BID PRN 11/21/19 [History] Beclomethasone Dip 80 Mcg/Puff [Qvar 80 mcg] 1 puff INHALATION RT-BID 11/21/19 [History] Cholecalciferol [Vitamin D3 (25 Mcg = 1000 Iu)] 2,000 unit PO DAILY 11/21/19 [History] Cyanocobalamin (Vitamin B-12) [Vitamin B-12] 1,000 mcg PO DAILY 11/21/19 [History] Magnesium Oxide 400 mg PO DAILY 11/21/19 [History] Potassium Gluconate 99 mg PO DAILY 11/21/19 [History] valACYclovir HCL [Valacyclovir] 1,000 mg PO BID 11/21/19 [History] Atorvastatin [Lipitor] 40 mg PO DAILY #90 tab 12/09/19 [Rx] Aspirin 81 mg PO DAILY 30 Days #30 chew 12/10/19 [Rx] levETIRAcetam [Keppra] 500 mg PO Q12HR 30 Days #60 tab 12/10/19 [Rx] Follow up Appointment(s)/Referral(s): Fernando Orellana MD [STAFF PHYSICIAN] - 12/24/19 1:45 pm (Stress test as out patient) Marleny Farrell DO [Primary Care Provider] - 12/17/19 9:30 am Idris Watson MD [Medical Doctor] - 01/06/20 9:00 am Patient Instructions/Handouts: Chest Pain (DC), Recurrent Seizures in Adults (DC) Activity/Diet/Wound Care/Special Instructions: Activity Limited until follow-up Continue current diet Continue monitoring blood sugars before meals at bedtime and keep a diary for primary care follow-up Continue with Keppra twice daily until follow-up with neurology Continue to avoid driving until neurology follow-up according the [place] laws Follow-up with cardiology in the outpatient setting to discuss and schedule stress test Discharge Disposition: HOME SELF-CARE
== END 2019-12-10 13:13 | disposition home or self-care (01) ==
LOC: EC 19:50 → 3NCARDOBS 22:31
PROVIDERS: ADMIT Hospitalist; ATTEND Hospitalist
DX: R07.89 Other chest pain (principal); E07.9 Disorder of thyroid, unspecified; E11.65 Type 2 diabetes mellitus with hyperglycemia; E66.01 Morbid (severe) obesity due to excess calories; E86.0 Dehydration; F41.9 Anxiety disorder, unspecified; G40.89 Other seizures; I10 Essential (primary) hypertension; I25.10 Atherosclerotic heart disease of native coronary artery without angina pectoris; M79.7 Fibromyalgia; N30.90 Cystitis, unspecified without hematuria; Z68.42 Body mass index [BMI] 45.0-49.9, adult; Z79.82 Long term (current) use of aspirin; Z79.84 Long term (current) use of oral hypoglycemic drugs; Z79.899 Other long term (current) drug therapy; Z80.3 Family history of malignant neoplasm of breast; Z80.6 Family history of leukemia; Z86.73 Personal history of transient ischemic attack (TIA), and cerebral infarction without residual deficits; Z87.442 Personal history of urinary calculi; Z79.891 Long term (current) use of opiate analgesic; Z88.1 Allergy status to other antibiotic agents; Z88.0 Allergy status to penicillin; Z88.8 Allergy status to other drugs, medicaments and biological substances; Z91.018 Allergy to other foods; Z86.14 Personal history of Methicillin resistant Staphylococcus aureus infection; Z98.49 Cataract extraction status, unspecified eye; Z03.818 Encounter for observation for suspected exposure to other biological agents ruled out
CPT/HCPCS: 96361 ×2; 96366 ×3; 96372 ×3; 96376 ×4; 96365; 96375; 99285; 36415; 94760; 95819; 93005; 83880; 80053; 80048; 80061; 83605; 83690; 83735 ×2; 84484 ×2; 85025; 85610; 85730; 81003; 84703; 83036; 71045; 76770; 71275; G0378 ×4; U0003; J2060; J1250; J2270 ×2; J1644 ×3; J3475; Q9967

== ENCOUNTER → 2020-02-28 | Outpatient (CLI) | payer OTHER | END | disposition home or self-care (01) | LOC: LABWHC1 10:30 | PROVIDERS: ATTEND Physician Assistant | DX: R00.2 Palpitations (principal) | CPT/HCPCS: 36415; 84443 ==

== ENCOUNTER → 2020-03-19 | Outpatient (CLI) | payer OTHER | END | disposition home or self-care (01) | LOC: LABWHC1 10:17 | PROVIDERS: ATTEND Obstetrics & Gynecology | DX: N91.2 Amenorrhea, unspecified (principal) | CPT/HCPCS: 36415; 84702 ==

== ENCOUNTER 2020-10-13 20:15 | Emergency (ER) | payer OTHER ==
[2020-10-13 20:45] VITALS: RESP 16; TEMP 97.8
[2020-10-13] MEDS ORDERED: KETOROLAC 15 MG/ML 1 ML VIAL IVP STA (21:45)
[2020-10-13] MEDS ORDERED: MORPHINE SULFATE 4 MG/ML SYRINGE IV STA (21:45)
[2020-10-13] MEDS ORDERED: SODIUM CHLORIDE 0.9% 1,000 ML IV STA ×2 (21:45)
--- NOTE | 2020-10-13 21:46 | ED ---
Abdominal Pain HPI - General Chief Complaint: Abdominal Pain Stated Complaint: kidney stone Time Seen by Provider: 10/13/20 21:43 Source: patient, RN notes reviewed, old records reviewed Mode of arrival: ambulatory Limitations: no limitations - History of Present Illness Initial Comments: This is a 45-year-old female DF for evaluation. Patient presents today for which she thinks may be kidney stone versus urinary tract infection. Patient has some abdominal pain, states when she has a symptoms she believes that potassium also may be low. She states she does not like she feels currently. She feels little bit weak. Otherwise no nausea vomiting or fevers. No other complaints MD Complaint: abdominal pain, flank pain (Left lower flank and abdominal pain) -: days(s) Location: diffuse, LLQ, suprapubic Radiation: suprapubic, L flank Migration to: suprapubic Severity: moderate Severity scale (1-10): 4 Quality: aching Consistency: constant Improves With: nothing Worsens With: nothing Context: other (similar) Associated Symptoms: nausea Treatments Prior to Arrival: NSAIDs - Related Data Home Medications Medication Instructions Recorded Confirmed Ferrous Sulfate [Iron (65 MG 325 mg PO DAILY 11/02/17 12/07/19 Elemental)] Morphine Sulfate ER [Ms Contin] 15 mg PO BID 11/02/17 12/07/19 glipiZIDE [Glucotrol] 10 mg PO BID 11/02/17 12/07/19 Sennosides [Senna] 17.4 mg PO DAILY 11/16/17 12/07/19 L.acidoph,Paracasei, B.lactis 1 cap PO DAILY 04/23/18 12/07/19 [Probiotic] [place]-3 Fatty Acids [[place]-3] 1,000 mg PO DAILY 04/23/18 12/07/19 oxyCODONE-APAP 10-325MG [Percocet 1 tab PO QID 04/23/18 12/07/19 10-325 mg] Pioglitazone [Actos] 30 mg PO DAILY 05/15/18 12/07/19 hydroCHLOROthiazide 25 mg PO DAILY 02/06/19 12/07/19 Ascorbic Acid [Vitamin C] 500 mg PO DAILY 11/21/19 12/07/19 Baclofen 10 mg PO BID PRN 11/21/19 12/07/19 Beclomethasone Dip 80 Mcg/Puff 1 puff INHALATION RT-BID 11/21/19 12/07/19 [Qvar 80 mcg] Cholecalciferol [Vitamin D3 (25 2,000 unit PO DAILY 11/21/19 12/07/19 Mcg = 1000 Iu)] Cyanocobalamin (Vitamin B-12) 1,000 mcg PO DAILY 11/21/19 12/07/19 [Vitamin B-12] Magnesium Oxide 400 mg PO DAILY 11/21/19 12/07/19 Potassium Gluconate 99 mg PO DAILY 11/21/19 12/07/19 valACYclovir HCL [Valacyclovir] 1,000 mg PO BID 11/21/19 12/07/19 Previous Rx's Medication Instructions Recorded Atorvastatin [Lipitor] 40 mg PO DAILY #90 tab 12/09/19 Aspirin 81 mg PO DAILY 30 Days #30 chew 12/10/19 levETIRAcetam [Keppra] 500 mg PO Q12HR 30 Days #60 tab 12/10/19 Allergies Allergy/AdvReac Type Severity Reaction Status Date / Time adhesive tape Allergy Severe Rash/Hives Verified 10/13/20 20:45 cortisone [Cortisone] Allergy Severe Anaphylaxis Verified 10/13/20 20:45 diphenhydramine HCl Allergy Severe Anaphylaxis Verified 10/13/20 20:45 [From Benadryl] Penicillins Allergy Severe Anaphylaxis Verified 10/13/20 20:45 Sulfa (Sulfonamide Allergy Intermediate Rash/Hives Verified 10/13/20 20:45 Antibiotics) Cephalosporins Allergy Mild Rash/Hives Verified 10/13/20 20:45 doxycycline Allergy Mild Rash/Hives Verified 10/13/20 20:45 Quinolones Allergy Mild Rash/Hives Verified 10/13/20 20:45 [place] And Derivatives Allergy Rash/Hives Verified 10/13/20 20:45 [[place]] Iodine and Iodide Containing Allergy Unknown Verified 10/13/20 20:45 Produc nitrofurantoin AdvReac Abdominal Verified 10/13/20 20:45 [From Macrobid] Pain Review of Systems ROS Statement: Those systems with pertinent positive or pertinent negative responses have been documented in the HPI. ROS Other: All systems not noted in ROS Statement are negative. 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 Date of last positivie culture/infection: 07/04/01 MDRO Source:: gallbladder Past Surgical History: Cholecystectomy, Hernia Repair Additional Past Surgical History / Comment(s): CATARACT SURGERY, kidney stents ; Colonoscopies, ventral hernia 08/02/17, Past Anesthesia/Blood Transfusion Reactions: No Reported Reaction Past Psychological History: Anxiety Smoking Status: Never smoker Past Alcohol Use History: None Reported Past Drug Use History: None Reported - Past Family History Father Family Medical History: No Reported History Mother Family Medical History: Cancer Additional Family Medical History / Comment(s): breast cancer (axilla location) dx at age 45. Maternal aunt dx with breast cancer @50, at age 54 from breast cancer Sister(s) Family Medical History: Cancer Additional Family Medical History / Comment(s): at age 8 from Leukemia, General Exam Limitations: no limitations General appearance: alert, in no apparent distress Head exam: Present: atraumatic, normocephalic, normal inspection Eye exam: Present: normal appearance, PERRL, EOMI. Absent: scleral icterus, conjunctival injection, periorbital swelling ENT exam: Present: normal exam, mucous membranes moist Neck exam: Present: normal inspection. Absent: tenderness, meningismus, lymphadenopathy Respiratory exam: Present: normal lung sounds bilaterally. Absent: respiratory distress, wheezes, rales, rhonchi, stridor Cardiovascular Exam: Present: regular rate, normal rhythm, normal heart sounds. Absent: systolic murmur, diastolic murmur, rubs, gallop, clicks GI/Abdominal exam: Present: soft, normal bowel sounds. Absent: distended, tenderness, guarding, rebound, rigid Extremities exam: Present: normal inspection, full ROM, normal capillary refill. Absent: tenderness, pedal edema, joint swelling, calf tenderness Back exam: Present: normal inspection Neurological exam: Present: alert, oriented X3, CN II-XII intact Psychiatric exam: Present: normal affect, normal mood Skin exam: Present: warm, dry, intact, normal color. Absent: rash Course Vital Signs 10/13/20 20:43 Temperature 97.8 F Pulse Rate 80 Respiratory 16 Rate Blood Pressure 150/92 O2 Sat by Pulse 98 Oximetry - Reevaluation(s) Reevaluation #1: 10/13/20 23:22 Medical record is reviewed Reevaluation #2: 10/13/20 23:22 Patient is in no distress, symptoms improved pain improved Reevaluation #3: 10/13/20 23:23 Patient informed results and questions answered Medical Decision Making - Medical Decision Making 45 female to the ER for evaluation. Patient presents today for evaluation regards to abdominal pain and weakness. Findings are negative here in the ER CT is negative patient can be discharged home - Lab Data Result diagrams: 10/13/20 22:02 10/13/20 22:02 Lab Results 10/13/20 10/13/20 10/13/20 Range/Units 22:02 22:02 22:02 WBC 5.2 (3.8-10.6) k/uL RBC 4.94 (3.80-5.40) m/uL Hgb 14.8 (11.4-16.0) gm/dL Hct 44.0 (34.0-46.0) % MCV 89.2 (80.0-100.0) fL MCH 30.1 (25.0-35.0) pg MCHC 33.7 (31.0-37.0) g/dL RDW 13.2 (11.5-15.5) % Plt Count 224 (150-450) k/uL MPV 8.5 Neutrophils % 54 % Lymphocytes % 36 % Monocytes % 7 % Eosinophils % 1 % Basophils % 1 % Neutrophils # 2.8 (1.3-7.7) k/uL Lymphocytes # 1.9 (1.0-4.8) k/uL Monocytes # 0.4 (0-1.0) k/uL Eosinophils # 0.1 (0-0.7) k/uL Basophils # 0.1 (0-0.2) k/uL Sodium 133 L (137-145) mmol/L Potassium 4.2 (3.5-5.1) mmol/L Chloride 100 (98-107) mmol/L Carbon Dioxide 30 (22-30) mmol/L Anion Gap 3 mmol/L BUN 15 (7-17) mg/dL Creatinine 0.63 (0.52-1.04) mg/dL Est GFR (CKD-EPI)AfAm >90 (>60 ml/min/1.73 sqM) Est GFR (CKD-EPI)NonAf >90 (>60 ml/min/1.73 sqM) Glucose 257 H (74-99) mg/dL Calcium 10.4 H (8.4-10.2) mg/dL Total Bilirubin 0.3 (0.2-1.3) mg/dL AST 30 (14-36) U/L ALT 34 (4-34) U/L Alkaline Phosphatase 62 (38-126) U/L Total Protein 6.7 (6.3-8.2) g/dL Albumin 3.7 (3.5-5.0) g/dL Amylase 50 (30-110) U/L Lipase 213 (23-300) U/L Urine Color Yellow Urine Appearance Clear (Clear) Urine pH 6.0 (5.0-8.0) Ur Specific [place] 1.022 (1.001-1.035) Urine Protein 2+ H (Negative) Urine Glucose (UA) 1+ H (Negative) Urine Ketones Negative (Negative) Urine Blood Small H (Negative) Urine Nitrite Negative (Negative) Urine Bilirubin Negative (Negative) Urine Urobilinogen <2.0 (<2.0) mg/dL Ur Leukocyte Esterase Negative (Negative) Urine RBC 5 (0-5) /hpf Urine WBC 4 (0-5) /hpf Ur Squamous Epith Cells 4 (0-4) /hpf Urine Bacteria Rare H (None) /hpf Hyaline Casts 4 H (0-2) /lpf Urine Mucus Rare H (None) /hpf - Radiology Data Radiology results: report reviewed (CT abdomen and pelvis negative for acute disease), image reviewed Disposition Clinical Impression: Nausea, Abdominal pain Disposition: HOME SELF-CARE Condition: Good Instructions (If sedation given, give patient instructions): Abdominal Pain (ED) Is patient prescribed a controlled substance at d/c from ED?: No Referrals: Marleny Farrell DO [Primary Care Provider] - 1-2 days
[2020-10-13 22:24] LABS: Basophils # (A) 0.1 k/uL (0-0.2); Basophils % (A) 1 %; Eosinophils # (A) 0.1 k/uL (0-0.7); Eosinophils % (A) 1 %; HGB 14.8 gm/dL (11.4-16.0); Lymphocytes # (A) 1.9 k/uL (1.0-4.8); Lymphocytes % (A) 36 %; MCH 30.1 pg (25.0-35.0); MCHC 33.7 g/dL (31.0-37.0); MCV 89.2 fL (80.0-100.0); Mean Platelet Volume 8.5; Monocytes # (A) 0.4 k/uL (0-1.0); Monocytes % (A) 7 %; Neutrophils # (A) 2.8 k/uL (1.3-7.7); Neutrophils % (A) 54 %; Platelet Count 224 k/uL (150-450); RBC 4.94 m/uL (3.80-5.40); RDW 13.2 % (11.5-15.5); WBC 5.2 k/uL (3.8-10.6)
[2020-10-13 22:29] LABS: Appearance,Urine Clear (Clear); Bacteria,Urine Rare /hpf; Bilirubin,Urine Negative (Negative); Blood,Urine Small (Negative); Color,Urine Yellow; Glucose,Urine (UA) 1+ (Negative); Hyaline Casts,Urine 4 /lpf (0-2); Ketones,Urine Negative (Negative); Leukocyte Esterase,Urine Negative (Negative); Mucus,Urine Rare /hpf; Nitrite,Urine Negative (Negative); Protein,Urine 2+ (Negative); RBC,Urine 5 /hpf (0-5); Specific Gravity,Urine 1.022 (1.001-1.035); Squamous Epithelial Cell,Urine 4 /hpf (0-4); Urobilinogen,Urine <2.0 mg/dL (<2.0); WBC,Urine 4 /hpf (0-5)
[2020-10-13 22:33] LABS: ALT 34 U/L (4-34); AST 30 U/L (14-36); African American GFR (CKD) >90 (>60 ml/min/1.73 sqM); Albumin 3.7 g/dL (3.5-5.0); Alkaline Phosphatase 62 U/L (38-126); Amylase 50 U/L (30-110); Anion Gap 3 mmol/L; Blood Urea Nitrogen 15 mg/dL (7-17); Calcium 10.4 mg/dL (8.4-10.2); Carbon Dioxide 30 mmol/L (22-30); Chloride 100 mmol/L (98-107); Glucose 257 mg/dL (74-99); Lipase 213 U/L (23-300); Non-African American GFR(CKD) >90 (>60 ml/min/1.73 sqM); Potassium 4.2 mmol/L (3.5-5.1); Sodium 133 mmol/L (137-145); Total Bilirubin 0.3 mg/dL (0.2-1.3); Total Protein 6.7 g/dL (6.3-8.2)
--- NOTE | 2020-10-13 23:34 | CT ---
EXAMINATION TYPE: CT abdomen pelvis wo con DATE OF EXAM: 10/13/2020 COMPARISON: 11/21/2019 HISTORY: left side flank pain CT DLP: 2924.9 mGycm Automated exposure control for dose reduction was used. Images obtained from the diaphragm to the floor the pelvis without contrast. The lung bases are clear of consolidation. There is no pleural effusion. Heart size is normal. There is no pericardial effusi on. Liver spleen pancreas stomach appear intact. The bile ducts are not dilated. There are clips from cho lecystectomy. There is no adrenal mass. Kidneys have normal size and contour. There is no hydronephrosis. The urete rs are not dilated. There is no retroperitoneal adenopathy. Bladder distends smoothly. Uterus is ante verted. There is no free fluid in the pelvis. There is no pelvic mass. Lumbar vertebra have normal alignment. Posterior elements are intact. There is no compression fractur e. There is no inguinal hernia. There is no evidence of a pelvic mass. There are some sigmoid diverticul a. There is no evidence of diverticulitis. Appendix appears normal. There is no mesenteric edema. The re is no ascites or free air. There is no evidence of a bowel obstruction. There is vacuum disc at L5 -S1 with spur formation. The bony pelvis is intact. IMPRESSION: Normal appendix. No evidence of renal stone or obstruction. No sign of acute abdomen and pelvis. No a dverse change compared to old exam. There is clearing of the mild left side hydronephrosis compared t o old exam.
[2020-10-14 00:49] VITALS: BP 121/86; PULSE 86
== END 2020-10-14 00:50 | disposition home or self-care (01) ==
LOC: EC 20:15
DX: R10.32 Left lower quadrant pain (principal); R11.0 Nausea; R53.1 Weakness; E11.9 Type 2 diabetes mellitus without complications; M79.7 Fibromyalgia; I10 Essential (primary) hypertension; F41.9 Anxiety disorder, unspecified; Z85.3 Personal history of malignant neoplasm of breast; Z86.73 Personal history of transient ischemic attack (TIA), and cerebral infarction without residual deficits; Z87.442 Personal history of urinary calculi; Z79.84 Long term (current) use of oral hypoglycemic drugs; Z88.0 Allergy status to penicillin; Z90.49 Acquired absence of other specified parts of digestive tract
CPT/HCPCS: 36415; 80053; 82150; 83690; 85025; 81001; 74176; 99285; 96374; 96375; 96361 ×2; J2270; J1885

== ENCOUNTER 2020-11-28 18:44 | Emergency (ER) | payer OTHER ==
[2020-11-28 18:48] VITALS: TEMP 97.6
[2020-11-28] MEDS ORDERED: SODIUM CHLORIDE 0.9% 500 ML 500 ML IV STA (19:15)
[2020-11-28] MEDS ORDERED: ONDANSETRON 4 MG/2 ML VIAL IVP STA (19:15)
[2020-11-28] MEDS ORDERED: MORPHINE SULFATE 4 MG/ML SYRINGE IV STA (19:15)
[2020-11-28 19:36] LABS: Basophils # (A) 0.1 k/uL (0-0.2); Basophils % (A) 1 %; Eosinophils % (A) 0 %; HCT 42.4 % (34.0-46.0); HGB 14.3 gm/dL (11.4-16.0); Lymphocytes # (A) 1.9 k/uL (1.0-4.8); Lymphocytes % (A) 27 %; MCHC 33.7 g/dL (31.0-37.0); MCV 89.1 fL (80.0-100.0); Mean Platelet Volume 8.8; Monocytes # (A) 0.4 k/uL (0-1.0); Monocytes % (A) 6 %; Neutrophils # (A) 4.4 k/uL (1.3-7.7); Neutrophils % (A) 64 %; Platelet Count 196 k/uL (150-450); RBC 4.76 m/uL (3.80-5.40); RDW 13.5 % (11.5-15.5); WBC 6.9 k/uL (3.8-10.6)
--- NOTE | 2020-11-28 19:37 | ED ---
General Adult HPI - General Chief complaint: Shortness of Breath Stated complaint: TOM/Kidney Pain/High HR Time Seen by Provider: 11/28/20 19:00 Source: patient Mode of arrival: ambulatory Limitations: no limitations - History of Present Illness Initial comments: 45 year-old male patient presents with multiple complaints. Patient states she is not feeling well. States she woke up this morning with painful breathing. Has had episodes where her heart feels like its racing. States she has also been feeling short of breath. States she is having bilateral flank pain and has been nauseated throughout the day as well. Denies any known fever or chills. Denies any hematuria, dysuria, urinary urgency, or frequency. States she having pain over the suprapubic region. States she has been sleeping over 12 hours per day for the last three days, this is unusual for her. Does have history of kidney stones and UTIs. Does have sleep apnea and COPD but reports symptoms are different. Patient denies any recent rash, cough, diarrhea, constipation, back pain, numbness, tingling, dizziness, weakness, headache, visual changes, or any other complaints. - Related Data Home Medications Medication Instructions Recorded Confirmed Morphine Sulfate ER [Ms Contin] 15 mg PO BID 11/02/17 10/13/20 glipiZIDE [Glucotrol] 10 mg PO BID 11/02/17 10/13/20 [place]-3 Fatty Acids [[place]-3] 1,000 mg PO DAILY 04/23/18 10/13/20 oxyCODONE-APAP 10-325MG [Percocet 1 tab PO QID PRN 04/23/18 10/13/20 10-325 mg] hydroCHLOROthiazide 12.5 mg PO DAILY 02/06/19 10/13/20 Potassium Gluconate 99 mg PO DAILY 11/21/19 10/13/20 valACYclovir HCL [Valacyclovir] 1,000 mg PO DAILY 11/21/19 10/13/20 Cyanocobalamin [Vitamin B-12] 1,000 mcg PO DAILY 10/13/20 10/13/20 Insulin Glargine,Hum.rec.anlog See Protocol SQ DAILY 10/13/20 10/13/20 [Lantus Solostar] OLANZapine [ZyPREXA] 2.5 mg PO DAILY 10/13/20 10/13/20 Pioglitazone [Actos] 15 mg PO DAILY 10/13/20 10/13/20 Pyridoxine HCl (Vitamin B6) 200 mg PO DAILY 10/13/20 10/13/20 [Vitamin B-6] Sennosides/Docusate Sodium 1 tab PO DAILY 10/13/20 10/13/20 [Senna-S 8.6-50 mg Tablet] Vitamin D3 50,000iu 1,250 mcg PO Q48H 10/13/20 10/13/20 Allergies Allergy/AdvReac Type Severity Reaction Status Date / Time adhesive tape Allergy Severe Rash/Hives Verified 11/28/20 18:48 cortisone [Cortisone] Allergy Severe Anaphylaxis Verified 11/28/20 18:48 diphenhydramine HCl Allergy Severe Anaphylaxis Verified 11/28/20 18:48 [From Benadryl] Penicillins Allergy Severe Anaphylaxis Verified 11/28/20 18:48 Sulfa (Sulfonamide Allergy Intermediate Rash/Hives Verified 11/28/20 18:48 Antibiotics) Cephalosporins Allergy Mild Rash/Hives Verified 11/28/20 18:48 doxycycline Allergy Mild Rash/Hives Verified 11/28/20 18:48 Quinolones Allergy Mild Rash/Hives Verified 11/28/20 18:48 [place] And Derivatives Allergy Rash/Hives Verified 11/28/20 18:48 [[place]] Iodine and Iodide Containing Allergy Unknown Verified 11/28/20 18:48 Produc nitrofurantoin AdvReac Abdominal Verified 11/28/20 18:48 [From Macrobid] Pain Review of Systems ROS Statement: Those systems with pertinent positive or pertinent negative responses have been documented in the HPI. ROS Other: All systems not noted in ROS Statement are negative. 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 Date of last positivie culture/infection: 07/04/01 MDRO Source:: gallbladder Past Surgical History: Cholecystectomy, Hernia Repair Additional Past Surgical History / Comment(s): CATARACT SURGERY, kidney stents ; Colonoscopies, ventral hernia 08/02/17, Past Anesthesia/Blood Transfusion Reactions: No Reported Reaction Past Psychological History: Anxiety Smoking Status: Never smoker Past Alcohol Use History: None Reported Past Drug Use History: None Reported - Past Family History Father Family Medical History: No Reported History Mother Family Medical History: Cancer Additional Family Medical History / Comment(s): breast cancer (axilla location) dx at age 45. Maternal aunt dx with breast cancer @50, at age 54 from breast cancer Sister(s) Family Medical History: Cancer Additional Family Medical History / Comment(s): at age 8 from Leukemia, General Exam Limitations: no limitations General appearance: alert, in no apparent distress, other (Physical well- developed, well-nourished adult female patient in no acute distress. Vital signs upon presentation are temperature 97.6F, pulse 88, respirations 20, blood pressure 144/86, pulse ox 96% on room air.) Eye exam: Present: normal appearance, PERRL, EOMI. Absent: scleral icterus, conjunctival injection, periorbital swelling ENT exam: Present: normal exam, normal oropharynx, mucous membranes moist Respiratory exam: Present: normal lung sounds bilaterally. Absent: respiratory distress, wheezes, rales, rhonchi, stridor Cardiovascular Exam: Present: regular rate, normal rhythm, normal heart sounds. Absent: systolic murmur, diastolic murmur, rubs, gallop, clicks GI/Abdominal exam: Present: soft, normal bowel sounds. Absent: distended, tenderness, guarding, rebound, rigid Back exam: Present: normal inspection, CVA tenderness (R), CVA tenderness (L) Neurological exam: Present: alert, oriented X3, CN II-XII intact Psychiatric exam: Present: normal affect, normal mood Skin exam: Present: warm, dry, intact, normal color. Absent: rash Course Vital Signs 11/28/20 11/28/20 11/28/20 18:46 19:58 21:00 Temperature 97.6 F Pulse Rate 88 97 Respiratory 20 18 18 Rate Blood Pressure 154/86 141/97 O2 Sat by Pulse 96 96 Oximetry EKG Findings - EKG Comments: EKG Findings:: EKG obtained at 1855 shows normal sinus rhythm with a ventricular rate of 83, NH interval 162, QRS duration 96, QT 386, QTc 453. No evidence of ST elevation or depression. Medical Decision Making - Medical Decision Making 35-year-old female patient presented to the emergency department today for evaluation of shortness of breath, chest pain, nausea, and bilateral flank pain. Physical examination did reveal bilateral CVA tenderness. Lungs are clear to auscultation with good air movement. Labs reviewed and did reveal white blood cell count is 6.9. D-dimer negative at 0.43. Troponin is negative. EKG is unremarkable. Remainder of labs unremarkable. Chest x-ray is negative. Ultrasound of the kidneys was negative. She'll be discharged home to follow-up with primary care physician for recheck in 1-2 days. Return parameters were dis cussed in detail. She verbalizes understanding and agrees with this plan. Case was discussed with my attending Dr. Marin. - Lab Data Result diagrams: 11/28/20 19:27 11/28/20 19:27 Lab Results 11/28/20 11/28/20 11/28/20 Range/Units 19:27 19:27 19:27 WBC 6.9 (3.8-10.6) k/uL RBC 4.76 (3.80-5.40) m/uL Hgb 14.3 (11.4-16.0) gm/dL Hct 42.4 (34.0-46.0) % MCV 89.1 (80.0-100.0) fL MCH 30.0 (25.0-35.0) pg MCHC 33.7 (31.0-37.0) g/dL RDW 13.5 (11.5-15.5) % Plt Count 196 (150-450) k/uL MPV 8.8 Neutrophils % 64 % Lymphocytes % 27 % Monocytes % 6 % Eosinophils % 0 % Basophils % 1 % Neutrophils # 4.4 (1.3-7.7) k/uL Lymphocytes # 1.9 (1.0-4.8) k/uL Monocytes # 0.4 (0-1.0) k/uL Eosinophils # 0.0 (0-0.7) k/uL Basophils # 0.1 (0-0.2) k/uL D-Dimer 0.43 (<0.60) mg/L FEU Sodium 137 (137-145) mmol/L Potassium 4.5 (3.5-5.1) mmol/L Chloride 104 (98-107) mmol/L Carbon Dioxide 24 (22-30) mmol/L Anion Gap 9 mmol/L BUN 20 H (7-17) mg/dL Creatinine 0.63 (0.52-1.04) mg/dL Est GFR (CKD-EPI)AfAm >90 (>60 ml/min/1.73 sqM) Est GFR (CKD-EPI)NonAf >90 (>60 ml/min/1.73 sqM) Glucose 218 H (74-99) mg/dL Plasma Lactic Acid [place] (0.7-2.0) mmol/L Calcium 9.3 (8.4-10.2) mg/dL Total Bilirubin 0.4 (0.2-1.3) mg/dL AST 37 H (14-36) U/L ALT 32 (4-34) U/L Alkaline Phosphatase 69 (38-126) U/L Troponin I (0.000-0.034) ng/mL Total Protein 6.8 (6.3-8.2) g/dL Albumin 3.7 (3.5-5.0) g/dL Lipase 176 (23-300) U/L Urine Color Urine Appearance (Clear) Urine pH (5.0-8.0) Ur Specific [place] (1.001-1.035) Urine Protein (Negative) Urine Glucose (UA) (Negative) Urine Ketones (Negative) Urine Blood (Negative) Urine Nitrite (Negative) Urine Bilirubin (Negative) Urine Urobilinogen (<2.0) mg/dL Ur Leukocyte Esterase (Negative) Urine RBC (0-5) /hpf Urine WBC (0-5) /hpf Ur Squamous Epith Cells (0-4) /hpf Amorphous Sediment (None) /hpf Hyaline Casts (0-2) /lpf Urine Mucus (None) /hpf 11/28/20 11/28/20 11/28/20 Range/Units 20:03 20:03 20:03 WBC (3.8-10.6) k/uL RBC (3.80-5.40) m/uL Hgb (11.4-16.0) gm/dL Hct (34.0-46.0) % MCV (80.0-100.0) fL MCH (25.0-35.0) pg MCHC (31.0-37.0) g/dL RDW (11.5-15.5) % Plt Count (150-450) k/uL MPV Neutrophils % % Lymphocytes % % Monocytes % % Eosinophils % % Basophils % % Neutrophils # (1.3-7.7) k/uL Lymphocytes # (1.0-4.8) k/uL Monocytes # (0-1.0) k/uL Eosinophils # (0-0.7) k/uL Basophils # (0-0.2) k/uL D-Dimer (<0.60) mg/L FEU Sodium (137-145) mmol/L Potassium (3.5-5.1) mmol/L Chloride (98-107) mmol/L Carbon Dioxide (22-30) mmol/L Anion Gap mmol/L BUN (7-17) mg/dL Creatinine (0.52-1.04) mg/dL Est GFR (CKD-EPI)AfAm (>60 ml/min/1.73 sqM) Est GFR (CKD-EPI)NonAf (>60 ml/min/1.73 sqM) Glucose (74-99) mg/dL Plasma Lactic Acid [place] 0.8 (0.7-2.0) mmol/L Calcium (8.4-10.2) mg/dL Total Bilirubin (0.2-1.3) mg/dL AST (14-36) U/L ALT (4-34) U/L Alkaline Phosphatase (38-126) U/L Troponin I <0.012 (0.000-0.034) ng/mL Total Protein (6.3-8.2) g/dL Albumin (3.5-5.0) g/dL Lipase (23-300) U/L Urine Color Yellow Urine Appearance Cloudy H (Clear) Urine pH 5.5 (5.0-8.0) Ur Specific [place] 1.027 (1.001-1.035) Urine Protein 2+ H (Negative) Urine Glucose (UA) 1+ H (Negative) Urine Ketones 1+ H (Negative) Urine Blood Negative (Negative) Urine Nitrite Negative (Negative) Urine Bilirubin Negative (Negative) Urine Urobilinogen <2.0 (<2.0) mg/dL Ur Leukocyte Esterase Negative (Negative) Urine RBC 2 (0-5) /hpf Urine WBC 8 H (0-5) /hpf Ur Squamous Epith Cells 13 H (0-4) /hpf Amorphous Sediment Rare H (None) /hpf Hyaline Casts 4 H (0-2) /lpf Urine Mucus Rare H (None) /hpf - Radiology Data Radiology results: report reviewed, image reviewed 2 views of the chest are obtained report reviewed in its entirety. Impression by Dr. Chinchilla shows mild increased pulmonary interstitial density compared to old exam. No pulmonary consolidation or heart failure. Ultrasound of the kidneys and bladder were obtained. Report is reviewed in its entirety. Impression by Dr. Chinchilla shows no evidence of hydronephrosis. Hypoechoic areas in the left kidney. Exam limited by patient's size. Urinary bladder and 2 during exam. No definite solid renal mass. Disposition Clinical Impression: Flank pain, Fatigue, Shortness of breath Disposition: HOME SELF-CARE Condition: Good Instructions (If sedation given, give patient instructions): Flank Pain (ED), Fatigue (ED), Shortness of Breath (ED) Additional Instructions: Follow-up with primary care physician for recheck Monday. Return for any new, worsening, or concerning symptoms Is patient prescribed a controlled substance at d/c from ED?: No Referrals: Marleny Farrell DO [Primary Care Provider] - 1-2 days Time of Disposition: 21:33
[2020-11-28 19:46] LABS: ALT 32 U/L (4-34); AST 37 U/L (14-36); African American GFR (CKD) >90 (>60 ml/min/1.73 sqM); Albumin 3.7 g/dL (3.5-5.0); Alkaline Phosphatase 69 U/L (38-126); Anion Gap 9 mmol/L; Blood Urea Nitrogen 20 mg/dL (7-17); Calcium 9.3 mg/dL (8.4-10.2); Carbon Dioxide 24 mmol/L (22-30); Chloride 104 mmol/L (98-107); Glucose 218 mg/dL (74-99); Lipase 176 U/L (23-300); Non-African American GFR(CKD) >90 (>60 ml/min/1.73 sqM); Sodium 137 mmol/L (137-145); Total Bilirubin 0.4 mg/dL (0.2-1.3); Total Protein 6.8 g/dL (6.3-8.2)
[2020-11-28 20:00] VITALS: RESP 18
[2020-11-28 20:06] LABS: Potassium 4.5 mmol/L (3.5-5.1)
--- NOTE | 2020-11-28 20:12 | XR ---
EXAMINATION TYPE: XR chest 2V DATE OF EXAM: 11/28/2020 COMPARISON: 12/07/2019 HISTORY: Chest pain TECHNIQUE: 2 views FINDINGS: There is some increased pulmonary interstitial density. There is no heart failure. Heart si ze is normal. There is no pleural effusion. Bony thorax is intact. IMPRESSION: Mild increased pulmonary interstitial density compared to old exam. No pulmonary consolid ation or heart failure.
[2020-11-28 20:31] LABS: Amorphous Sediment,Urine Rare /hpf; Appearance,Urine Cloudy (Clear); Bilirubin,Urine Negative (Negative); Blood,Urine Negative (Negative); Color,Urine Yellow; Glucose,Urine (UA) 1+ (Negative); Hyaline Casts,Urine 4 /lpf (0-2); Ketones,Urine 1+ (Negative); Leukocyte Esterase,Urine Negative (Negative); Mucus,Urine Rare /hpf; Nitrite,Urine Negative (Negative); PH, Urine 5.5 (5.0-8.0); Protein,Urine 2+ (Negative); RBC,Urine 2 /hpf (0-5); Specific Gravity,Urine 1.027 (1.001-1.035); Squamous Epithelial Cell,Urine 13 /hpf (0-4); Urobilinogen,Urine <2.0 mg/dL (<2.0); WBC,Urine 8 /hpf (0-5)
--- NOTE | 2020-11-28 21:10 | US ---
EXAMINATION TYPE: US kidneys/renal and bladder DATE OF EXAM: 11/28/2020 COMPARISON: 12/09/2019 CLINICAL HISTORY: Bilateral flank pain. Bilateral flank pain. Hx stents bilaterally per patient. EXAM MEASUREMENTS: Right Kidney: 12.8 x 6.7 x 6.3 cm Left Kidney: 13.7 x 5.1 x 6.1 cm Right Kidney: Hypoechoic area seen upper pole measuring 1.8 x 1.3 x 0.8 cm. (Possible fluid) Left Kidney: Appears enlarged. Indistinct, hypoechoic-isoechoic area seen mid pole versus column of [place] measuring 3.3 x 3.2 x 4.3 cm. Bladder: Not distended. Unable to evaluate. Bilateral Jets seen: No IMPRESSION: No evidence of hydronephrosis. Hypoechoic areas in the left kidney. Exam limited by patient's size. U rinary bladder empty during the exam. No definite solid renal mass.
[2020-11-28 21:41] VITALS: BP 141/97; PULSE 97
== END 2020-11-28 21:56 | disposition home or self-care (01) ==
LOC: EC 18:44
DX: R10.2 Pelvic and perineal pain (principal); R06.02 Shortness of breath; R53.83 Other fatigue; R07.1 Chest pain on breathing; R11.0 Nausea; E11.9 Type 2 diabetes mellitus without complications; I10 Essential (primary) hypertension; J44.9 Chronic obstructive pulmonary disease, unspecified; G40.909 Epilepsy, unspecified, not intractable, without status epilepticus; M79.7 Fibromyalgia; G47.30 Sleep apnea, unspecified; F41.9 Anxiety disorder, unspecified; Z86.73 Personal history of transient ischemic attack (TIA), and cerebral infarction without residual deficits; Z87.440 Personal history of urinary (tract) infections; Z87.442 Personal history of urinary calculi; Z79.4 Long term (current) use of insulin; Z79.899 Other long term (current) drug therapy; Z88.0 Allergy status to penicillin; Z88.1 Allergy status to other antibiotic agents; Z88.2 Allergy status to sulfonamides; Z88.8 Allergy status to other drugs, medicaments and biological substances
CPT/HCPCS: 36415; 93005; 85379; 80053; 83605; 83690; 84484; 85025; 81001; 71046; 76770; 99285; 96374; 96375; J2270; J2405

== ENCOUNTER 2020-11-30 12:03 | Emergency (ER) | payer OTHER ==
[2020-11-30] MEDS ORDERED: KETOROLAC 15 MG/ML 1 ML VIAL IM STA (12:41)
--- NOTE | 2020-11-30 12:44 | ED ---
General Adult HPI - General Chief complaint: Extremity Injury, Lower Stated complaint: fall, rt foot injury Time Seen by Provider: 11/30/20 12:33 Source: patient, RN notes reviewed Mode of arrival: wheelchair Limitations: no limitations - History of Present Illness Initial comments: Patient is a pleasant 45-year-old female presenting to the emergency department following a fall. Patient states she tripped over an engine in the garage. Patient landed on her knees. Patient also twisted her right foot. Patient is having significant discomfort since this time. No history of chronic injuries to these areas previously. No head injury or loss of consciousness. No neck or back pain. No chest pain or dyspnea. No abdominal pain. - Related Data Home Medications Medication Instructions Recorded Confirmed Morphine Sulfate ER [Ms Contin] 15 mg PO BID 11/02/17 10/13/20 glipiZIDE [Glucotrol] 10 mg PO BID 11/02/17 10/13/20 [place]-3 Fatty Acids [[place]-3] 1,000 mg PO DAILY 04/23/18 10/13/20 oxyCODONE-APAP 10-325MG [Percocet 1 tab PO QID PRN 04/23/18 10/13/20 10-325 mg] hydroCHLOROthiazide 12.5 mg PO DAILY 02/06/19 10/13/20 Potassium Gluconate 99 mg PO DAILY 11/21/19 10/13/20 valACYclovir HCL [Valacyclovir] 1,000 mg PO DAILY 11/21/19 10/13/20 Cyanocobalamin [Vitamin B-12] 1,000 mcg PO DAILY 10/13/20 10/13/20 Insulin Glargine,Hum.rec.anlog See Protocol SQ DAILY 10/13/20 10/13/20 [Lantus Solostar] OLANZapine [ZyPREXA] 2.5 mg PO DAILY 10/13/20 10/13/20 Pioglitazone [Actos] 15 mg PO DAILY 10/13/20 10/13/20 Pyridoxine HCl (Vitamin B6) 200 mg PO DAILY 10/13/20 10/13/20 [Vitamin B-6] Sennosides/Docusate Sodium 1 tab PO DAILY 10/13/20 10/13/20 [Senna-S 8.6-50 mg Tablet] Vitamin D3 50,000iu 1,250 mcg PO Q48H 10/13/20 10/13/20 Allergies Allergy/AdvReac Type Severity Reaction Status Date / Time adhesive tape Allergy Severe Rash/Hives Verified 11/30/20 12:30 cortisone [Cortisone] Allergy Severe Anaphylaxis Verified 11/30/20 12:30 diphenhydramine HCl Allergy Severe Anaphylaxis Verified 11/30/20 12:30 [From Benadryl] Penicillins Allergy Severe Anaphylaxis Verified 11/30/20 12:30 Sulfa (Sulfonamide Allergy Intermediate Rash/Hives Verified 11/30/20 12:30 Antibiotics) Cephalosporins Allergy Mild Rash/Hives Verified 11/30/20 12:30 doxycycline Allergy Mild Rash/Hives Verified 11/30/20 12:30 Quinolones Allergy Mild Rash/Hives Verified 11/30/20 12:30 [place] And Derivatives Allergy Rash/Hives Verified 11/30/20 12:30 [[place]] Iodine and Iodide Containing Allergy Unknown Verified 11/30/20 12:30 Produc nitrofurantoin AdvReac Abdominal Verified 11/30/20 12:30 [From Macrobid] Pain Review of Systems ROS Statement: Those systems with pertinent positive or pertinent negative responses have been documented in the HPI. ROS Other: All systems not noted in ROS Statement are negative. 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 Date of last positivie culture/infection: 07/04/01 MDRO Source:: gallbladder Past Surgical History: Cholecystectomy, Hernia Repair Additional Past Surgical History / Comment(s): CATARACT SURGERY, kidney stents ; Colonoscopies, ventral hernia 08/02/17, Past Anesthesia/Blood Transfusion Reactions: No Reported Reaction Past Psychological History: Anxiety Smoking Status: Never smoker Past Alcohol Use History: None Reported Past Drug Use History: None Reported - Past Family History Father Family Medical History: No Reported History Mother Family Medical History: Cancer Additional Family Medical History / Comment(s): breast cancer (axilla location) dx at age 45. Maternal aunt dx with breast cancer @50, at age 54 from breast cancer Sister(s) Family Medical History: Cancer Additional Family Medical History / Comment(s): at age 8 from Leukemia, General Exam Limitations: no limitations General appearance: alert, in no apparent distress Head exam: Present: atraumatic Eye exam: Present: normal appearance Neck exam: Present: normal inspection. Absent: tenderness Respiratory exam: Present: normal lung sounds bilaterally Cardiovascular Exam: Present: regular rate, normal rhythm Expanded Peripheral pulses: 2+: Dorsalis Pedis (R), Dorsalis Pedis (L) GI/Abdominal exam: Present: soft. Absent: tenderness Extremities exam: Present: tenderness (Moderate tenderness bilateral anterior knee. Severe diffuse tenderness right foot. Mild tenderness right ankle. Distal extremities are neurovascularly intact.) Back exam: Present: normal inspection. Absent: tenderness Neurological exam: Present: alert. Absent: motor sensory deficit Psychiatric exam: Present: normal affect, normal mood Skin exam: Present: normal color Course Vital Signs 11/30/20 11/30/20 12:26 14:42 Temperature 97.6 F 97.5 F L Pulse Rate 75 71 Respiratory 21 18 Rate Blood Pressure 146/89 127/85 O2 Sat by Pulse 96 97 Oximetry Procedures - Orthopedic Joint Reduction Joint #1 Consent Obtained: verbal consent Side: right Joint Reduction Location: toe (Second toe) Technique Used: traction/counter-traction Post-Reduction Neuro Exam: intact Post-Reduction Vascular Exam: intact Patient Tolerated Procedure: well, no complications - Orthopedic Splinting/Casting Injury #1 Side: right Lower Extremity Injury Location: short leg, ankle, foot Lower Extremity Immobilizer: posterior splint Disposition Clinical Impression: Dislocation of second toe, right, closed, Knee contusion, Foot sprain Disposition: HOME SELF-CARE Condition: Stable Instructions (If sedation given, give patient instructions): Knee Pain (ED), Foot Sprain (ED) Additional Instructions: Please follow-up with primary care physician in the next couple days for recheck. If symptoms continue consider orthopedic follow-up, number provided. Return for foot problems, increased pain, worsening symptoms or any other concerns. Is patient prescribed a controlled substance at d/c from ED?: No Referrals: Marleny Farrell DO [Primary Care Provider] - 1-2 days Randy Forbes DO [Doctor of Osteopathic Medicine] - 1-2 days Time of Disposition: 14:48
--- NOTE | 2020-11-30 13:50 | XR ---
Right ankle and right foot HISTORY: Trauma and pain 3 views of the right foot, 2 views of the right ankle The right ankle show soft tissue swelling present. Small ossific density present at the level of the tibiofibular joint is well-corticated and seen on the oblique view measuring approximately 2 mm and i s felt not likely to be acute, some degenerative change present at the tibiotalar joint. No lateral v iew of the right ankle submitted. Bone mineralization, joint spaces are maintained. There is a disloc ation at the proximal interphalangeal joint of the second digit of the right foot. There is an enthes ophyte at the insertion of the Achilles tendon. Plantar calcaneal spur is present. Oblique image show s distortion. IMPRESSION: Soft tissue swelling. Dislocation second digit. Limitations as described.
--- NOTE | 2020-11-30 13:52 | XR ---
Bilateral knees HISTORY: Trauma and pain 3 views of each knee Osteophytic changes are present, joint space loss noted medially especially on the right and tricompa rtmental marginal spurring present bilaterally. No evident joint effusion on the left, minimal effusi on suspected on the right. Or graph impression: No fracture or dislocation. Osteoarthritis.
[2020-11-30 14:43] VITALS: BP 127/85; PULSE 71; RESP 18; TEMP 97.5
== END 2020-11-30 15:01 | disposition home or self-care (01) ==
LOC: EC 12:03
DX: S93.104A Unspecified dislocation of right toe(s), initial encounter (principal); S93.601A Unspecified sprain of right foot, initial encounter; M25.562 Pain in left knee; E11.9 Type 2 diabetes mellitus without complications; I10 Essential (primary) hypertension; G40.909 Epilepsy, unspecified, not intractable, without status epilepticus; M79.7 Fibromyalgia; Z79.4 Long term (current) use of insulin; Z79.899 Other long term (current) drug therapy; Z80.3 Family history of malignant neoplasm of breast; Z86.73 Personal history of transient ischemic attack (TIA), and cerebral infarction without residual deficits; Z88.0 Allergy status to penicillin; Z88.1 Allergy status to other antibiotic agents; Z88.2 Allergy status to sulfonamides; Z88.8 Allergy status to other drugs, medicaments and biological substances; W01.0XXA Fall on same level from slipping, tripping and stumbling without subsequent striking against object, initial encounter; X50.1XXA Overexertion from prolonged static or awkward postures, initial encounter; Y92.59 Other trade areas as the place of occurrence of the external cause
CPT/HCPCS: 73562; 73610; 73630; 29515; 96372; 99284; J1885

== ENCOUNTER 2021-01-22 19:26 | Emergency (ER) | payer OTHER ==
[2021-01-22] MEDS ORDERED: ONDANSETRON 4 MG/2 ML VIAL IVP STA (20:15)
[2021-01-22] MEDS ORDERED: SODIUM CHLORIDE 0.9% 500 ML 500 ML IV STA (20:15)
[2021-01-22] MEDS ORDERED: KETOROLAC 15 MG/ML 1 ML VIAL IVP STA (20:15)
--- NOTE | 2021-01-22 20:19 | ED ---
General Adult HPI - General Chief complaint: Abdominal Pain Stated complaint: Kidney Stones Time Seen by Provider: 01/22/21 19:50 Source: patient, RN notes reviewed Mode of arrival: ambulatory Limitations: no limitations - History of Present Illness Initial comments: 45-year-old female alert and oriented 4, presents to the emergency room with complaints of left flank pain. She states that she's had pain for 3 days and is concerned that she may be having another kidney stone. Her last kidney stone was 5 years ago. She states her temperature normally runs 96.7 and today it was 97.6 which is high for her. She has had nausea but no vomiting. She says her urine is foul smelling and in the past that has been indicative of a stone for her. She has had a history of diabetes, seizures and degenerative disc disease. He states that the pain is 7 out of 10 and feels like a pulling or tugging on her left flank. -: days(s) (3) Location: left (flank) Radiation: non-radiation Severity scale (1-10): 7 Quality: other (pulling tugging) Consistency: constant Improves with: none Worsens with: none Associated Symptoms: nausea/vomiting - Related Data Home Medications Medication Instructions Recorded Confirmed Morphine Sulfate ER [Ms Contin] 15 mg PO BID 11/02/17 10/13/20 glipiZIDE [Glucotrol] 10 mg PO BID 11/02/17 10/13/20 [place]-3 Fatty Acids [[place]-3] 1,000 mg PO DAILY 04/23/18 10/13/20 oxyCODONE-APAP 10-325MG [Percocet 1 tab PO QID PRN 04/23/18 10/13/20 10-325 mg] hydroCHLOROthiazide 12.5 mg PO DAILY 02/06/19 10/13/20 Potassium Gluconate [Potassium 99 mg PO DAILY 11/21/19 10/13/20 Gluconate ER] valACYclovir HCL [Valacyclovir] 1,000 mg PO DAILY 11/21/19 10/13/20 Cyanocobalamin [Vitamin B-12] 1,000 mcg PO DAILY 10/13/20 10/13/20 Insulin Glargine,Hum.rec.anlog See Protocol SQ DAILY 10/13/20 10/13/20 [Lantus Solostar] OLANZapine [ZyPREXA] 2.5 mg PO DAILY 10/13/20 10/13/20 Pioglitazone [Actos] 15 mg PO DAILY 10/13/20 10/13/20 Pyridoxine HCl (Vitamin B6) 200 mg PO DAILY 10/13/20 10/13/20 [Vitamin B-6] Sennosides/Docusate Sodium 1 tab PO DAILY 10/13/20 10/13/20 [Senna-S 8.6-50 mg Tablet] Vitamin D3 50,000iu 1,250 mcg PO Q48H 10/13/20 10/13/20 Previous Rx's Medication Instructions Recorded Ibuprofen [Motrin] 600 mg PO Q8HR PRN #30 tab 01/22/21 Allergies Allergy/AdvReac Type Severity Reaction Status Date / Time adhesive tape Allergy Severe Rash/Hives Verified 01/22/21 19:30 cortisone [Cortisone] Allergy Severe Anaphylaxis Verified 01/22/21 19:30 diphenhydramine HCl Allergy Severe Anaphylaxis Verified 01/22/21 19:30 [From Benadryl] Penicillins Allergy Severe Anaphylaxis Verified 01/22/21 19:30 Sulfa (Sulfonamide Allergy Intermediate Rash/Hives Verified 01/22/21 19:30 Antibiotics) Cephalosporins Allergy Mild Rash/Hives Verified 01/22/21 19:30 doxycycline Allergy Mild Rash/Hives Verified 01/22/21 19:30 Quinolones Allergy Mild Rash/Hives Verified 01/22/21 19:30 [place] And Derivatives Allergy Rash/Hives Verified 01/22/21 19:30 [[place]] Iodine and Iodide Containing Allergy Unknown Verified 01/22/21 19:30 Produc nitrofurantoin AdvReac Abdominal Verified 01/22/21 19:30 [From Macrobid] Pain Review of Systems ROS Statement: Those systems with pertinent positive or pertinent negative responses have been documented in the HPI. ROS Other: All systems not noted in ROS Statement are negative. 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 Date of last positivie culture/infection: 07/04/01 MDRO Source:: gallbladder Past Surgical History: Cholecystectomy, Hernia Repair Additional Past Surgical History / Comment(s): CATARACT SURGERY, kidney stents ; Colonoscopies, ventral hernia 08/02/17, Past Anesthesia/Blood Transfusion Reactions: No Reported Reaction Past Psychological History: Anxiety Smoking Status: Never smoker Past Alcohol Use History: None Reported Past Drug Use History: None Reported - Past Family History Father Family Medical History: No Reported History Mother Family Medical History: Cancer Additional Family Medical History / Comment(s): breast cancer (axilla location) dx at age 45. Maternal aunt dx with breast cancer @50, at age 54 from breast cancer Sister(s) Family Medical History: Cancer Additional Family Medical History / Comment(s): at age 8 from Leukemia, General Exam Limitations: no limitations General appearance: alert, in no apparent distress Head exam: Present: atraumatic, normocephalic, normal inspection Eye exam: Present: normal appearance, PERRL, EOMI. Absent: scleral icterus, conjunctival injection, periorbital swelling ENT exam: Present: normal exam, normal oropharynx, mucous membranes moist Neck exam: Present: normal inspection, full ROM. Absent: tenderness, meningismus, lymphadenopathy, thyromegaly Respiratory exam: Present: normal lung sounds bilaterally. Absent: respiratory distress, wheezes, rales, rhonchi, stridor, accessory muscle use Cardiovascular Exam: Present: regular rate, normal rhythm, normal heart sounds. Absent: systolic murmur, diastolic murmur, rubs, gallop, clicks GI/Abdominal exam: Present: soft, normal bowel sounds. Absent: distended, tenderness, guarding, rebound, rigid Extremities exam: Present: full ROM, normal capillary refill. Absent: tenderness, pedal edema, joint swelling, calf tenderness Back exam: Present: normal inspection, CVA tenderness (L). Absent: muscle spasm, paraspinal tenderness, rash noted Neurological exam: Present: alert, oriented X3, CN II-XII intact, normal gait Psychiatric exam: Present: normal affect, normal mood Skin exam: Present: warm, dry, intact, normal color. Absent: rash, cyanosis, diaphoretic, petechiae, pallor Course Vital Signs 01/22/21 01/22/21 01/22/21 19:27 20:24 22:00 Temperature 97.9 F Pulse Rate 82 93 90 Respiratory 20 18 18 Rate Blood Pressure 154/101 131/94 140/76 O2 Sat by Pulse 98 94 L 98 Oximetry Medical Decision Making - Medical Decision Making CT the abdomen and pelvis shows a normal appendix, no evidence of renal stone or obstruction, left adrenal masses stable compared to April 2018 exam. There is no evidence of leukocytosis patient is afebrile. Patient denies any dysuria. She was instructed to follow-up with her primary care doctor and urologist next week as needed. Return to the emergency room with any new or worsening symptoms including fever, dysuria, increased pain. Patient is agreeable to this plan of care. She was called in a prescription for Motrin to take as needed for pain. Case discussed with Dr. Hernandez - Lab Data Result diagrams: 01/22/21 20:24 01/22/21 14:50 Lab Results 01/22/21 01/22/21 01/22/21 Range/Units 14:50 20:24 20:24 WBC 6.7 (3.8-10.6) k/uL RBC 4.95 (3.80-5.40) m/uL Hgb 15.1 (11.4-16.0) gm/dL Hct 45.2 (34.0-46.0) % MCV 91.2 (80.0-100.0) fL MCH 30.6 (25.0-35.0) pg MCHC 33.5 (31.0-37.0) g/dL RDW 12.9 (11.5-15.5) % Plt Count 205 (150-450) k/uL MPV 8.9 Neutrophils % 64 % Lymphocytes % 24 % Monocytes % 8 % Eosinophils % 0 % Basophils % 1 % Neutrophils # 4.3 (1.3-7.7) k/uL Lymphocytes # 1.6 (1.0-4.8) k/uL Monocytes # 0.6 (0-1.0) k/uL Eosinophils # 0.0 (0-0.7) k/uL Basophils # 0.0 (0-0.2) k/uL Sodium 133 L (137-145) mmol/L Potassium 4.0 (3.5-5.1) mmol/L Chloride 99 (98-107) mmol/L Carbon Dioxide 24 (22-30) mmol/L Anion Gap 10 mmol/L BUN 15 (7-17) mg/dL Creatinine 0.58 (0.52-1.04) mg/dL Est GFR (CKD-EPI)AfAm >90 (>60 ml/min/1.73 sqM) Est GFR (CKD-EPI)NonAf >90 (>60 ml/min/1.73 sqM) Glucose 294 H (74-99) mg/dL Calcium 9.8 (8.4-10.2) mg/dL Total Bilirubin 0.7 (0.2-1.3) mg/dL AST 34 (14-36) U/L ALT 36 H (4-34) U/L Alkaline Phosphatase 79 (38-126) U/L Total Protein 7.1 (6.3-8.2) g/dL Albumin 3.8 (3.5-5.0) g/dL Amylase 53 (30-110) U/L Lipase 259 (23-300) U/L Urine Color Yellow Urine Appearance Cloudy H (Clear) Urine pH 5.5 (5.0-8.0) Ur Specific [place] 1.027 (1.001-1.035) Urine Protein 2+ H (Negative) Urine Glucose (UA) 4+ H (Negative) Urine Ketones Negative (Negative) Urine Blood Negative (Negative) Urine Nitrite Negative (Negative) Urine Bilirubin Negative (Negative) Urine Urobilinogen <2.0 (<2.0) mg/dL Ur Leukocyte Esterase Negative (Negative) Urine RBC 16 H (0-5) /hpf Urine WBC 8 H (0-5) /hpf Ur Squamous Epith Cells 11 H (0-4) /hpf Urine Bacteria Occasional H (None) /hpf Hyaline Casts 4 H (0-2) /lpf Urine Mucus Many H (None) /hpf Urine Yeast (Budding) Many H (None) /hpf Disposition Clinical Impression: Flank pain Disposition: HOME SELF-CARE Condition: Good Instructions (If sedation given, give patient instructions): Flank Pain (ED) Additional Instructions: Return to the emergency room with any new or worsening symptoms including increased pain, fevers or nausea vomiting. Take Motrin as needed for pain. Follow-up with the primary care doctor or urologist as needed. Prescriptions: Ibuprofen [Motrin] 600 mg PO Q8HR PRN #30 tab PRN Reason: Pain Is patient prescribed a controlled substance at d/c from ED?: No Referrals: Marleny Farrell DO [Primary Care Provider] - 1-2 days Shadi Feliz MD [STAFF PHYSICIAN] - 1-2 days Time of Disposition: 23:52
[2021-01-22 20:30] VITALS: RESP 18
[2021-01-22 20:38] LABS: Basophils % (A) 1 %; Eosinophils % (A) 0 %; HCT 45.2 % (34.0-46.0); HGB 15.1 gm/dL (11.4-16.0); Lymphocytes # (A) 1.6 k/uL (1.0-4.8); Lymphocytes % (A) 24 %; MCH 30.6 pg (25.0-35.0); MCHC 33.5 g/dL (31.0-37.0); MCV 91.2 fL (80.0-100.0); Mean Platelet Volume 8.9; Monocytes # (A) 0.6 k/uL (0-1.0); Monocytes % (A) 8 %; Neutrophils # (A) 4.3 k/uL (1.3-7.7); Neutrophils % (A) 64 %; Platelet Count 205 k/uL (150-450); RBC 4.95 m/uL (3.80-5.40); RDW 12.9 % (11.5-15.5); WBC 6.7 k/uL (3.8-10.6)
[2021-01-22 20:46] LABS: Appearance,Urine Cloudy (Clear); Bacteria,Urine Occasional /hpf; Bilirubin,Urine Negative (Negative); Blood,Urine Negative (Negative); Budding Yeast,Urine Many /hpf; Color,Urine Yellow; Glucose,Urine (UA) 4+ (Negative); Hyaline Casts,Urine 4 /lpf (0-2); Ketones,Urine Negative (Negative); Leukocyte Esterase,Urine Negative (Negative); Mucus,Urine Many /hpf; Nitrite,Urine Negative (Negative); PH, Urine 5.5 (5.0-8.0); Protein,Urine 2+ (Negative); RBC,Urine 16 /hpf (0-5); Specific Gravity,Urine 1.027 (1.001-1.035); Squamous Epithelial Cell,Urine 11 /hpf (0-4); Urobilinogen,Urine <2.0 mg/dL (<2.0); WBC,Urine 8 /hpf (0-5)
[2021-01-22 20:49] LABS: ALT 36 U/L (4-34); AST 34 U/L (14-36); African American GFR (CKD) >90 (>60 ml/min/1.73 sqM); Albumin 3.8 g/dL (3.5-5.0); Alkaline Phosphatase 79 U/L (38-126); Amylase 53 U/L (30-110); Anion Gap 10 mmol/L; Blood Urea Nitrogen 15 mg/dL (7-17); Calcium 9.8 mg/dL (8.4-10.2); Carbon Dioxide 24 mmol/L (22-30); Chloride 99 mmol/L (98-107); Glucose 294 mg/dL (74-99); Lipase 259 U/L (23-300); Non-African American GFR(CKD) >90 (>60 ml/min/1.73 sqM); Sodium 133 mmol/L (137-145); Total Bilirubin 0.7 mg/dL (0.2-1.3); Total Protein 7.1 g/dL (6.3-8.2)
--- NOTE | 2021-01-22 21:18 | XR ---
EXAMINATION TYPE: XR KUB DATE OF EXAM: 01/22/2021 9:10 PM CLINICAL HISTORY: Abdominal pain. Left flank pain and nausea. History of kidney stones. TECHNIQUE: Upright images of the abdomen and pelvis were obtained COMPARISON: 04/23/2018. FINDINGS: Right upper quadrant surgical clips. Nonspecific bowel gas pattern. No pneumoperitoneum. No abnormal calcification appreciated. The lung bases are clear. The osseous structures are intact. Lev ocurvature of the thoracolumbar spine. IMPRESSION: Nonspecific bowel gas pattern.
[2021-01-22] MEDS ORDERED: MORPHINE SULFATE 4 MG/ML SYRINGE IVP STA (22:03)
--- NOTE | 2021-01-22 23:22 | CT ---
EXAMINATION TYPE: CT abdomen pelvis wo con DATE OF EXAM: 01/22/2021 COMPARISON: 10/13/2020 HISTORY: LT flank pain, hx renal stones CT DLP: 2844.9 mGycm Automated exposure control for dose reduction was used. Exam without contrast from the diaphragm to the floor the pelvis. Lung bases are clear. There is no pleural effusion. Heart size is normal. There is no pericardial eff usion. Spleen is enlarged and measures 15 cm Stomach pancreas appear intact. There are clips from cholecystectomy. There is no focal liver defect. There is lobulated 3.5 cm mixed density left adrenal mass. Unchanged. Kidneys have normal size. There is no hydronephrosis. Ureters are not dilated. There is no retroperitoneal adenopathy. Bladder diste nds smoothly. There is no inguinal hernia. Uterus is anteverted. Lumbar vertebra have normal alignmen t. There is degenerative disc space narrowing at L5-S1 with vacuum disc. There is spurring of the end plates at L4-5 and L5-S1. There is no lumbar compression fracture. The bony pelvis is intact. Hip yobani nts are intact. There is no mesenteric edema. There is no ascites or free air. There is no bowel obstruction. Appendi x appears normal. IMPRESSION: Splenomegaly unchanged. Left adrenal mass is stable compared to 04/23/2018 exam and appears benign. Normal appendix. No evidence of renal stone or obstruction.
[2021-01-23 00:44] VITALS: BP 136/78; PULSE 92; TEMP 98.1
== END 2021-01-23 00:43 | disposition home or self-care (01) ==
LOC: EC 19:26
DX: R10.9 Unspecified abdominal pain (principal); E11.9 Type 2 diabetes mellitus without complications; I10 Essential (primary) hypertension; F41.9 Anxiety disorder, unspecified; Z87.442 Personal history of urinary calculi; Z88.0 Allergy status to penicillin; Z88.2 Allergy status to sulfonamides; Z88.1 Allergy status to other antibiotic agents; Z86.73 Personal history of transient ischemic attack (TIA), and cerebral infarction without residual deficits; Z90.49 Acquired absence of other specified parts of digestive tract
CPT/HCPCS: 99284; 96374; 96375 ×2; 36415; 80053; 82150; 83690; 85025; 81001; 74018; 74176; J2270; J2405; J1885

== ENCOUNTER 2021-01-24 18:34 | Emergency (ER) | payer OTHER ==
[2021-01-24 19:12] LABS: Basophils # (A) 0.1 k/uL (0-0.2); Basophils % (A) 1 %; Eosinophils % (A) 0 %; HCT 46.3 % (34.0-46.0); HGB 15.7 gm/dL (11.4-16.0); Lymphocytes # (A) 1.9 k/uL (1.0-4.8); Lymphocytes % (A) 27 %; MCH 30.9 pg (25.0-35.0); MCHC 33.8 g/dL (31.0-37.0); MCV 91.4 fL (80.0-100.0); Mean Platelet Volume 8.6; Monocytes # (A) 0.6 k/uL (0-1.0); Monocytes % (A) 8 %; Neutrophils # (A) 4.4 k/uL (1.3-7.7); Neutrophils % (A) 62 %; Platelet Count 221 k/uL (150-450); RBC 5.07 m/uL (3.80-5.40)
[2021-01-24 19:35] LABS: Amorphous Sediment,Urine Rare /hpf; Appearance,Urine Cloudy (Clear); Bacteria,Urine Few /hpf; Bilirubin,Urine Negative (Negative); Blood,Urine Negative (Negative); Budding Yeast,Urine Few /hpf; Color,Urine Yellow; Glucose,Urine (UA) 4+ (Negative); Hyaline Casts,Urine 35 /lpf (0-2); Ketones,Urine Negative (Negative); Leukocyte Esterase,Urine Small (Negative); Mucus,Urine Rare /hpf; Nitrite,Urine Negative (Negative); Protein,Urine 2+ (Negative); RBC,Urine 3 /hpf (0-5); Specific Gravity,Urine 1.025 (1.001-1.035); Squamous Epithelial Cell,Urine 7 /hpf (0-4); Urobilinogen,Urine <2.0 mg/dL (<2.0); WBC,Urine 12 /hpf (0-5)
[2021-01-24 19:40] LABS: ALT 39 U/L (4-34); AST 35 U/L (14-36); African American GFR (CKD) >90 (>60 ml/min/1.73 sqM); Albumin 4.1 g/dL (3.5-5.0); Alkaline Phosphatase 67 U/L (38-126); Amylase 51 U/L (30-110); Anion Gap 8 mmol/L; Blood Urea Nitrogen 19 mg/dL (7-17); Carbon Dioxide 28 mmol/L (22-30); Chloride 99 mmol/L (98-107); Glucose 211 mg/dL (74-99); Lipase 108 U/L (23-300); Non-African American GFR(CKD) >90 (>60 ml/min/1.73 sqM); Potassium 3.8 mmol/L (3.5-5.1); Sodium 135 mmol/L (137-145); Total Bilirubin 0.7 mg/dL (0.2-1.3); Total Protein 7.5 g/dL (6.3-8.2)
[2021-01-24 20:55] VITALS: RESP 18
--- NOTE | 2021-01-24 21:10 | ED ---
Abdominal Pain HPI - General Chief Complaint: Abdominal Pain Stated Complaint: kidney stones Time Seen by Provider: 01/24/21 20:42 Source: patient Mode of arrival: ambulatory Limitations: no limitations - History of Present Illness Initial Comments: Patient presents to emergency room with continued right flank and right lower abdominal pain. Patient was seen yesterday for the same a CAT scan was done revealing no evidence of kidney stone. Patient states that her urine is cloudy but denies any nausea vomiting diarrhea or fevers. MD Complaint: abdominal pain Location: R flank Radiation: RLQ Severity scale (1-10): 9 Quality: sharp Consistency: constant Improves With: nothing Worsens With: nothing Associated Symptoms: denies other symptoms - Related Data Home Medications Medication Instructions Recorded Confirmed Morphine Sulfate ER [Ms Contin] 15 mg PO BID 11/02/17 10/13/20 glipiZIDE [Glucotrol] 10 mg PO BID 11/02/17 10/13/20 [place]-3 Fatty Acids [[place]-3] 1,000 mg PO DAILY 04/23/18 10/13/20 oxyCODONE-APAP 10-325MG [Percocet 1 tab PO QID PRN 04/23/18 10/13/20 10-325 mg] hydroCHLOROthiazide 12.5 mg PO DAILY 02/06/19 10/13/20 Potassium Gluconate [Potassium 99 mg PO DAILY 11/21/19 10/13/20 Gluconate ER] valACYclovir HCL [Valacyclovir] 1,000 mg PO DAILY 11/21/19 10/13/20 Cyanocobalamin [Vitamin B-12] 1,000 mcg PO DAILY 10/13/20 10/13/20 Insulin Glargine,Hum.rec.anlog See Protocol SQ DAILY 10/13/20 10/13/20 [Lantus Solostar] OLANZapine [ZyPREXA] 2.5 mg PO DAILY 10/13/20 10/13/20 Pioglitazone [Actos] 15 mg PO DAILY 10/13/20 10/13/20 Pyridoxine HCl (Vitamin B6) 200 mg PO DAILY 10/13/20 10/13/20 [Vitamin B-6] Sennosides/Docusate Sodium 1 tab PO DAILY 10/13/20 10/13/20 [Senna-S 8.6-50 mg Tablet] Vitamin D3 50,000iu 1,250 mcg PO Q48H 10/13/20 10/13/20 Previous Rx's Medication Instructions Recorded Ibuprofen [Motrin] 600 mg PO Q8HR PRN #30 tab 01/22/21 Nitrofurantoin Monohyd/M-Cryst 100 mg PO Q12HR #14 cap 01/24/21 [Macrobid] Allergies Allergy/AdvReac Type Severity Reaction Status Date / Time adhesive tape Allergy Severe Rash/Hives Verified 01/24/21 18:54 cortisone [Cortisone] Allergy Severe Anaphylaxis Verified 01/24/21 18:54 diphenhydramine HCl Allergy Severe Anaphylaxis Verified 01/24/21 18:54 [From Benadryl] Penicillins Allergy Severe Anaphylaxis Verified 01/24/21 18:54 Sulfa (Sulfonamide Allergy Intermediate Rash/Hives Verified 01/24/21 18:54 Antibiotics) Cephalosporins Allergy Mild Rash/Hives Verified 01/24/21 18:54 doxycycline Allergy Mild Rash/Hives Verified 01/24/21 18:54 Quinolones Allergy Mild Rash/Hives Verified 01/24/21 18:54 [place] And Derivatives Allergy Rash/Hives Verified 01/24/21 18:54 [[place]] Iodine and Iodide Containing Allergy Unknown Verified 01/24/21 18:54 Produc nitrofurantoin AdvReac Abdominal Verified 01/24/21 18:54 [From Macrobid] Pain Review of Systems ROS Statement: Those systems with pertinent positive or pertinent negative responses have been documented in the HPI. ROS Other: All systems not noted in ROS Statement are negative. 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 Date of last positivie culture/infection: 07/04/01 MDRO Source:: gallbladder Past Surgical History: Cholecystectomy, Hernia Repair Additional Past Surgical History / Comment(s): CATARACT SURGERY, kidney stents ; Colonoscopies, ventral hernia 08/02/17, Past Anesthesia/Blood Transfusion Reactions: No Reported Reaction Past Psychological History: Anxiety Smoking Status: Never smoker Past Alcohol Use History: None Reported Past Drug Use History: None Reported - Past Family History Father Family Medical History: No Reported History Mother Family Medical History: Cancer Additional Family Medical History / Comment(s): breast cancer (axilla location) dx at age 45. Maternal aunt dx with breast cancer @50, at age 54 from breast cancer Sister(s) Family Medical History: Cancer Additional Family Medical History / Comment(s): at age 8 from Leukemia, General Exam Limitations: no limitations General appearance: alert, in no apparent distress Head exam: Present: atraumatic, normocephalic, normal inspection Eye exam: Present: normal appearance, PERRL, EOMI. Absent: scleral icterus, conjunctival injection, periorbital swelling Neck exam: Present: normal inspection, full ROM. Absent: tenderness, meningismus, lymphadenopathy Cardiovascular Exam: Present: regular rate, normal rhythm, normal heart sounds. Absent: systolic murmur, diastolic murmur, rubs, gallop, clicks GI/Abdominal exam: Present: soft, tenderness (Right lower quadrant) Extremities exam: Present: normal inspection, full ROM, normal capillary refill, calf tenderness. Absent: tenderness, joint swelling Neurological exam: Present: alert, oriented X3, CN II-XII intact Psychiatric exam: Present: normal affect, normal mood Skin exam: Present: warm, dry, intact, normal color. Absent: rash, cyanosis, diaphoretic, petechiae, pallor Course Vital Signs 01/24/21 01/24/21 18:54 20:51 Temperature 97.8 F Pulse Rate 78 86 Respiratory 20 18 Rate Blood Pressure 111/83 138/100 O2 Sat by Pulse 95 97 Oximetry Medical Decision Making - Medical Decision Making Patient was seen by myself yesterday for the same complaints. She presents today with complaints of having a kidney stone on the right side. CAT scan was done yesterday she does not have evidence of kidney stones. She is afebrile and denies any nausea vomiting or diarrhea. Her urine is cloudy and was retested again today. Patient was treated for urinary tract infection with Macrobid due to patient's multiple ALLERGIES to antibiotics. Patient also has a history of abdominal colic which may be the cause of her pain as well. She was instructed to contact her doctor tomorrow morning for continuation of care return in the emergency room with any worsening symptoms. - Lab Data Result diagrams: 01/24/21 19:00 01/24/21 19:00 Lab Results 01/24/21 01/24/21 01/24/21 Range/Units 19:00 19:00 19:00 WBC 7.0 (3.8-10.6) k/uL RBC 5.07 (3.80-5.40) m/uL Hgb 15.7 (11.4-16.0) gm/dL Hct 46.3 H (34.0-46.0) % MCV 91.4 (80.0-100.0) fL MCH 30.9 (25.0-35.0) pg MCHC 33.8 (31.0-37.0) g/dL RDW 13.0 (11.5-15.5) % Plt Count 221 (150-450) k/uL MPV 8.6 Neutrophils % 62 % Lymphocytes % 27 % Monocytes % 8 % Eosinophils % 0 % Basophils % 1 % Neutrophils # 4.4 (1.3-7.7) k/uL Lymphocytes # 1.9 (1.0-4.8) k/uL Monocytes # 0.6 (0-1.0) k/uL Eosinophils # 0.0 (0-0.7) k/uL Basophils # 0.1 (0-0.2) k/uL Sodium 135 L (137-145) mmol/L Potassium 3.8 (3.5-5.1) mmol/L Chloride 99 (98-107) mmol/L Carbon Dioxide 28 (22-30) mmol/L Anion Gap 8 mmol/L BUN 19 H (7-17) mg/dL Creatinine 0.64 (0.52-1.04) mg/dL Est GFR (CKD-EPI)AfAm >90 (>60 ml/min/1.73 sqM) Est GFR (CKD-EPI)NonAf >90 (>60 ml/min/1.73 sqM) Glucose 211 H (74-99) mg/dL Calcium 10.0 (8.4-10.2) mg/dL Total Bilirubin 0.7 (0.2-1.3) mg/dL AST 35 (14-36) U/L ALT 39 H (4-34) U/L Alkaline Phosphatase 67 (38-126) U/L Total Protein 7.5 (6.3-8.2) g/dL Albumin 4.1 (3.5-5.0) g/dL Amylase 51 (30-110) U/L Lipase 108 (23-300) U/L Urine Color Yellow Urine Appearance Cloudy H (Clear) Urine pH 6.0 (5.0-8.0) Ur Specific [place] 1.025 (1.001-1.035) Urine Protein 2+ H (Negative) Urine Glucose (UA) 4+ H (Negative) Urine Ketones Negative (Negative) Urine Blood Negative (Negative) Urine Nitrite Negative (Negative) Urine Bilirubin Negative (Negative) Urine Urobilinogen <2.0 (<2.0) mg/dL Ur Leukocyte Esterase Small H (Negative) Urine RBC 3 (0-5) /hpf Urine WBC 12 H (0-5) /hpf Ur Squamous Epith Cells 7 H (0-4) /hpf Amorphous Sediment Rare H (None) /hpf Urine Bacteria Few H (None) /hpf Hyaline Casts 35 H (0-2) /lpf Urine Mucus Rare H (None) /hpf Urine Yeast (Budding) Few H (None) /hpf Disposition Clinical Impression: UTI (urinary tract infection) Disposition: HOME SELF-CARE Condition: Good Instructions (If sedation given, give patient instructions): Urinary Tract Infection in Women (ED) Additional Instructions: Take medication as prescribed and follow-up with your primary care doctor this week. Increase your fluid intake Prescriptions: Nitrofurantoin Monohyd/M-Cryst [Macrobid] 100 mg PO Q12HR #14 cap Is patient prescribed a controlled substance at d/c from ED?: No Referrals: Marleny Farrell DO [Primary Care Provider] - 1-2 days Time of Disposition: 21:10
[2021-01-24 21:33] VITALS: BP 123/91; PULSE 58; TEMP 98.2
== END 2021-01-24 21:32 | disposition home or self-care (01) ==
LOC: EC 18:34
DX: N39.0 Urinary tract infection, site not specified (principal); E11.9 Type 2 diabetes mellitus without complications; I10 Essential (primary) hypertension; F41.9 Anxiety disorder, unspecified; Z79.4 Long term (current) use of insulin; Z88.0 Allergy status to penicillin; Z88.1 Allergy status to other antibiotic agents; Z88.2 Allergy status to sulfonamides; Z91.041 Radiographic dye allergy status; Z86.73 Personal history of transient ischemic attack (TIA), and cerebral infarction without residual deficits; Z87.442 Personal history of urinary calculi; Z90.49 Acquired absence of other specified parts of digestive tract; Z79.899 Other long term (current) drug therapy
CPT/HCPCS: 36415; 80053; 81001; 82150; 83690; 85025; 87086; 99284

== ENCOUNTER 2021-02-06 21:57 | Inpatient (IN) | payer OTHER ==
[2021-02-06] MEDS ORDERED: HYDROmorphone 0.5 MG/0.5 ML SYRINGE IVP STA (23:34)
[2021-02-06] MEDS ORDERED: ONDANSETRON 4 MG/2 ML VIAL IVP STA (23:34)
[2021-02-06] MEDS ORDERED: SODIUM CHLORIDE 0.9% 1,000 ML IV STA (23:34)
--- NOTE | 2021-02-07 00:20 | ED ---
Abdominal Pain HPI - General Chief Complaint: Abdominal Pain Stated Complaint: abdominal pain Time Seen by Provider: 02/06/21 23:05 Source: patient Mode of arrival: ambulatory Limitations: no limitations - History of Present Illness Initial Comments: 45-year-old female with history of recurrent UTIs presents to the emergency room with a chief complaint of abdominal pain. patient reports history of abdominal pain with no source. Patient reports she has been evaluated multiple times for the pain abdomen in this emergency Department with no acute findings. Patient reports she had a CT performed about 10 days ago which showed no acute findings. patient reports the pain is located in the left flank region.she denies any radiation of pain. she reports intermittent nausea with several episode nonbilious and nonbloody vomiting over the last week. States the pain is not postprandial. Denies any constipation or diarrhea. Denies any urinary or v aginal symptoms. Denies any fevers or chills. Denies any chest pain or shortness of breath. - Related Data Home Medications Medication Instructions Recorded Confirmed Morphine Sulfate ER [Ms Contin] 15 mg PO BID 11/02/17 10/13/20 glipiZIDE [Glucotrol] 10 mg PO BID 11/02/17 10/13/20 [place]-3 Fatty Acids [[place]-3] 1,000 mg PO DAILY 04/23/18 10/13/20 oxyCODONE-APAP 10-325MG [Percocet 1 tab PO QID PRN 04/23/18 10/13/20 10-325 mg] hydroCHLOROthiazide 12.5 mg PO DAILY 02/06/19 10/13/20 Potassium Gluconate [Potassium 99 mg PO DAILY 11/21/19 10/13/20 Gluconate ER] valACYclovir HCL [Valacyclovir] 1,000 mg PO DAILY 11/21/19 10/13/20 Cyanocobalamin [Vitamin B-12] 1,000 mcg PO DAILY 10/13/20 10/13/20 Insulin Glargine,Hum.rec.anlog See Protocol SQ DAILY 10/13/20 10/13/20 [Lantus Solostar] OLANZapine [ZyPREXA] 2.5 mg PO DAILY 10/13/20 10/13/20 Pioglitazone [Actos] 15 mg PO DAILY 10/13/20 10/13/20 Pyridoxine HCl (Vitamin B6) 200 mg PO DAILY 10/13/20 10/13/20 [Vitamin B-6] Sennosides/Docusate Sodium 1 tab PO DAILY 10/13/20 10/13/20 [Senna-S 8.6-50 mg Tablet] Vitamin D3 50,000iu 1,250 mcg PO Q48H 10/13/20 10/13/20 Previous Rx's Medication Instructions Recorded Ibuprofen [Motrin] 600 mg PO Q8HR PRN #30 tab 01/22/21 Nitrofurantoin Monohyd/M-Cryst 100 mg PO Q12HR #14 cap 01/24/21 [Macrobid] Allergies Allergy/AdvReac Type Severity Reaction Status Date / Time adhesive tape Allergy Severe Rash/Hives Verified 02/06/21 22:04 cortisone [Cortisone] Allergy Severe Anaphylaxis Verified 02/06/21 22:04 diphenhydramine HCl Allergy Severe Anaphylaxis Verified 02/06/21 22:04 [From Benadryl] Penicillins Allergy Severe Anaphylaxis Verified 02/06/21 22:04 Sulfa (Sulfonamide Allergy Intermediate Rash/Hives Verified 02/06/21 22:04 Antibiotics) Cephalosporins Allergy Mild Rash/Hives Verified 02/06/21 22:04 doxycycline Allergy Mild Rash/Hives Verified 02/06/21 22:04 Quinolones Allergy Mild Rash/Hives Verified 02/06/21 22:04 [place] And Derivatives Allergy Rash/Hives Verified 02/06/21 22:04 [[place]] Iodine and Iodide Containing Allergy Unknown Verified 02/06/21 22:04 Produc nitrofurantoin AdvReac Abdominal Verified 02/06/21 22:04 [From Macrobid] Pain Review of Systems ROS Statement: Those systems with pertinent positive or pertinent negative responses have been documented in the HPI. ROS Other: All systems not noted in ROS Statement are negative. 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 Date of last positivie culture/infection: 07/04/01 MDRO Source:: gallbladder Past Surgical History: Cholecystectomy, Hernia Repair Additional Past Surgical History / Comment(s): CATARACT SURGERY, kidney stents ; Colonoscopies, ventral hernia 08/02/17, Past Anesthesia/Blood Transfusion Reactions: No Reported Reaction Past Psychological History: Anxiety Smoking Status: Never smoker Past Alcohol Use History: None Reported Past Drug Use History: None Reported - Past Family History Father Family Medical History: No Reported History Mother Family Medical History: Cancer Additional Family Medical History / Comment(s): breast cancer (axilla location) dx at age 45. Maternal aunt dx with breast cancer @50, at age 54 from breast cancer Sister(s) Family Medical History: Cancer Additional Family Medical History / Comment(s): at age 8 from Leukemia, General Exam Limitations: no limitations General appearance: alert, in no apparent distress, obese Head exam: Present: atraumatic, normocephalic, normal inspection Eye exam: Present: normal appearance, PERRL Pupils: Present: normal accommodation ENT exam: Present: normal exam, normal oropharynx, mucous membranes moist Neck exam: Present: normal inspection, full ROM. Absent: tenderness Respiratory exam: Present: normal lung sounds bilaterally. Absent: respiratory distress Cardiovascular Exam: Present: regular rate, normal rhythm, normal heart sounds. Absent: systolic murmur GI/Abdominal exam: Present: soft, tenderness (left-sided abdominal tenderness). Absent: distended, guarding, rebound Extremities exam: Present: normal inspection, full ROM, normal capillary refill. Absent: tenderness Back exam: Present: normal inspection, full ROM, CVA tenderness (L). Absent: tenderness, CVA tenderness (R) Neurological exam: Present: alert, oriented X3 Psychiatric exam: Present: normal affect, normal mood Skin exam: Present: warm, dry, intact, normal color Course Vital Signs 02/06/21 02/07/21 22:01 00:49 Temperature 97.9 F Pulse Rate 86 82 Respiratory 20 16 Rate Blood Pressure 141/80 133/92 O2 Sat by Pulse 98 97 Oximetry Medical Decision Making - Medical Decision Making 45-year-old female presents to the emergency department with a chief complaint of abdominal pain. Physical examination, left CVA tenderness. CBC unremarkable.hyperglycemia and mild transaminitis also noted. UA positive for urinary tract infection with elevated nitrates, leukocyte esterase or blood cells. Urine culture is pending. I suspect the patient has pyelonephritis. Considering the patient's extensive ALLERGIES to antibiotics. Patient will be started on IV Azrteaon which the patient states is the only in about it that works well for her. I spoke to who will admit patient. Case discussed with Dr. Ennis - Lab Data Result diagrams: 02/07/21 00:26 02/07/21 00:26 Lab Results 02/07/21 02/07/21 02/07/21 Range/Units 00:26 00:26 00:26 WBC 7.0 (3.8-10.6) k/uL RBC 5.03 (3.80-5.40) m/uL Hgb 14.9 (11.4-16.0) gm/dL Hct 46.1 H (34.0-46.0) % MCV 91.7 (80.0-100.0) fL MCH 29.7 (25.0-35.0) pg MCHC 32.4 (31.0-37.0) g/dL RDW 12.8 (11.5-15.5) % Plt Count 215 (150-450) k/uL MPV 8.9 Neutrophils % 67 % Lymphocytes % 25 % Monocytes % 6 % Eosinophils % 0 % Basophils % 1 % Neutrophils # 4.7 (1.3-7.7) k/uL Lymphocytes # 1.7 (1.0-4.8) k/uL Monocytes # 0.4 (0-1.0) k/uL Eosinophils # 0.0 (0-0.7) k/uL Basophils # 0.1 (0-0.2) k/uL Sodium 134 L (137-145) mmol/L Potassium 4.2 (3.5-5.1) mmol/L Chloride 100 (98-107) mmol/L Carbon Dioxide 27 (22-30) mmol/L Anion Gap 7 mmol/L BUN 20 H (7-17) mg/dL Creatinine 0.65 (0.52-1.04) mg/dL Est GFR (CKD-EPI)AfAm >90 (>60 ml/min/1.73 sqM) Est GFR (CKD-EPI)NonAf >90 (>60 ml/min/1.73 sqM) Glucose 303 H (74-99) mg/dL Calcium 10.3 H (8.4-10.2) mg/dL Total Bilirubin 0.6 (0.2-1.3) mg/dL AST 37 H (14-36) U/L ALT 41 H (4-34) U/L Alkaline Phosphatase 70 (38-126) U/L Total Protein 7.4 (6.3-8.2) g/dL Albumin 4.0 (3.5-5.0) g/dL Lipase 111 (23-300) U/L Urine Color Yellow Urine Appearance Cloudy H (Clear) Urine pH 5.5 (5.0-8.0) Ur Specific [place] 1.026 (1.001-1.035) Urine Protein 3+ H (Negative) Urine Glucose (UA) 4+ H (Negative) Urine Ketones 1+ H (Negative) Urine Blood Negative (Negative) Urine Nitrite Positive H (Negative) Urine Bilirubin Negative (Negative) Urine Urobilinogen <2.0 (<2.0) mg/dL Ur Leukocyte Esterase Large H (Negative) Urine RBC 28 H (0-5) /hpf Urine WBC >182 H (0-5) /hpf Ur Squamous Epith Cells 4 (0-4) /hpf Amorphous Sediment Rare H (None) /hpf Urine Bacteria Many H (None) /hpf Hyaline Casts 50 H (0-2) /lpf Urine Mucus Few H (None) /hpf Urine HCG, Qual (Not Detectd) 02/07/21 Range/Units 00:26 WBC (3.8-10.6) k/uL RBC (3.80-5.40) m/uL Hgb (11.4-16.0) gm/dL Hct (34.0-46.0) % MCV (80.0-100.0) fL MCH (25.0-35.0) pg MCHC (31.0-37.0) g/dL RDW (11.5-15.5) % Plt Count (150-450) k/uL MPV Neutrophils % % Lymphocytes % % Monocytes % % Eosinophils % % Basophils % % Neutrophils # (1.3-7.7) k/uL Lymphocytes # (1.0-4.8) k/uL Monocytes # (0-1.0) k/uL Eosinophils # (0-0.7) k/uL Basophils # (0-0.2) k/uL Sodium (137-145) mmol/L Potassium (3.5-5.1) mmol/L Chloride (98-107) mmol/L Carbon Dioxide (22-30) mmol/L Anion Gap mmol/L BUN (7-17) mg/dL Creatinine (0.52-1.04) mg/dL Est GFR (CKD-EPI)AfAm (>60 ml/min/1.73 sqM) Est GFR (CKD-EPI)NonAf (>60 ml/min/1.73 sqM) Glucose (74-99) mg/dL Calcium (8.4-10.2) mg/dL Total Bilirubin (0.2-1.3) mg/dL AST (14-36) U/L ALT (4-34) U/L Alkaline Phosphatase (38-126) U/L Total Protein (6.3-8.2) g/dL Albumin (3.5-5.0) g/dL Lipase (23-300) U/L Urine Color Urine Appearance (Clear) Urine pH (5.0-8.0) Ur Specific [place] (1.001-1.035) Urine Protein (Negative) Urine Glucose (UA) (Negative) Urine Ketones (Negative) Urine Blood (Negative) Urine Nitrite (Negative) Urine Bilirubin (Negative) Urine Urobilinogen (<2.0) mg/dL Ur Leukocyte Esterase (Negative) Urine RBC (0-5) /hpf Urine WBC (0-5) /hpf Ur Squamous Epith Cells (0-4) /hpf Amorphous Sediment (None) /hpf Urine Bacteria (None) /hpf Hyaline Casts (0-2) /lpf Urine Mucus (None) /hpf Urine HCG, Qual Not Detected (Not Detectd) Disposition Clinical Impression: UTI (urinary tract infection) Disposition: ADMITTED IP TO THIS HOSP Condition: Good Is patient prescribed a controlled substance at d/c from ED?: No Referrals: Marleny Farrell DO [Primary Care Provider] - 1-2 days Time of Disposition: 02:28
[2021-02-07 00:40] LABS: Basophils # (A) 0.1 k/uL (0-0.2); Basophils % (A) 1 %; Eosinophils % (A) 0 %; HCT 46.1 % (34.0-46.0); HGB 14.9 gm/dL (11.4-16.0); Lymphocytes # (A) 1.7 k/uL (1.0-4.8); Lymphocytes % (A) 25 %; MCH 29.7 pg (25.0-35.0); MCHC 32.4 g/dL (31.0-37.0); MCV 91.7 fL (80.0-100.0); Mean Platelet Volume 8.9; Monocytes # (A) 0.4 k/uL (0-1.0); Monocytes % (A) 6 %; Neutrophils # (A) 4.7 k/uL (1.3-7.7); Neutrophils % (A) 67 %; Platelet Count 215 k/uL (150-450); RBC 5.03 m/uL (3.80-5.40); RDW 12.8 % (11.5-15.5)
[2021-02-07 00:51] LABS: ALT 41 U/L (4-34); AST 37 U/L (14-36); African American GFR (CKD) >90 (>60 ml/min/1.73 sqM); Alkaline Phosphatase 70 U/L (38-126); Anion Gap 7 mmol/L; Blood Urea Nitrogen 20 mg/dL (7-17); Calcium 10.3 mg/dL (8.4-10.2); Carbon Dioxide 27 mmol/L (22-30); Chloride 100 mmol/L (98-107); Glucose 303 mg/dL (74-99); Lipase 111 U/L (23-300); Non-African American GFR(CKD) >90 (>60 ml/min/1.73 sqM); Potassium 4.2 mmol/L (3.5-5.1); Sodium 134 mmol/L (137-145); Total Bilirubin 0.6 mg/dL (0.2-1.3); Total Protein 7.4 g/dL (6.3-8.2)
[2021-02-07 00:54] LABS: Amorphous Sediment,Urine Rare /hpf; Appearance,Urine Cloudy (Clear); Bacteria,Urine Many /hpf; Bilirubin,Urine Negative (Negative); Blood,Urine Negative (Negative); Color,Urine Yellow; Glucose,Urine (UA) 4+ (Negative); Hyaline Casts,Urine 50 /lpf (0-2); Ketones,Urine 1+ (Negative); Leukocyte Esterase,Urine Large (Negative); Mucus,Urine Few /hpf; Nitrite,Urine Positive (Negative); PH, Urine 5.5 (5.0-8.0); Protein,Urine 3+ (Negative); RBC,Urine 28 /hpf (0-5); Specific Gravity,Urine 1.026 (1.001-1.035); Squamous Epithelial Cell,Urine 4 /hpf (0-4); Urobilinogen,Urine <2.0 mg/dL (<2.0); WBC,Urine >182 /hpf (0-5)
[2021-02-07] MEDS ORDERED: AZTREONAM 2 GM in SODIUM CHLORIDE 0.9% 100 ML IVPB STA (01:31)
[2021-02-07] MEDS ORDERED: NALOXONE 0.4 MG/ML 1 ML VIAL IV PRN (02:26)
[2021-02-07] MEDS ORDERED: ONDANSETRON 4 MG/2 ML VIAL IVP PRN ×2 (02:26→17:59)
[2021-02-07] MEDS ORDERED: HYDROmorphone 0.5 MG/0.5 ML SYRINGE IVP PRN (02:26)
[2021-02-07] MEDS: SODIUM CHLORIDE 0.9% 1,000 ML IV SCH ×3 (02:40→23:11)
--- NOTE | 2021-02-07 05:26 | P.HPIM ---
History of Present Illness H&P Date: 02/07/21 Chief Complaint: left flank pain 45 year old female with DM , htn , CVA patient comes in with 2 week history of worsening left flank pain, associated with repeated nausea and vomiting over past few days, and discoloration of the urine over past couple days. she has presented to the ED multiple times over this period, and workup does not reveal anything abnormal and she gets sent home today describing fever, and chills , along with worsening pain radiating to her left groin , denies any chest pain or trouble breathing, denies any diarrhea, she reports history of recurrent UTI , with multiple allergies to antibiotics . in the ED, workup shoed UA positive for nitrite and leukocyte esterase with blood. she is admitted for IV ABx for acute pyelonephritis CT abd done 10 days ago was unremarkable Review of Systems Pertinent positives as noted in HPI. 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 Date of last positivie culture/infection: 07/04/01 MDRO Source:: gallbladder Past Surgical History: Cholecystectomy, Hernia Repair Additional Past Surgical History / Comment(s): CATARACT SURGERY, kidney stents ; Colonoscopies, ventral hernia 08/02/17, Past Anesthesia/Blood Transfusion Reactions: No Reported Reaction Past Psychological History: Anxiety Smoking Status: Never smoker Past Alcohol Use History: None Reported Past Drug Use History: None Reported - Past Family History Father Family Medical History: No Reported History Mother Family Medical History: Cancer Additional Family Medical History / Comment(s): breast cancer (axilla location) dx at age 45. Maternal aunt dx with breast cancer @50, at age 54 from breast cancer Sister(s) Family Medical History: Cancer Additional Family Medical History / Comment(s): at age 8 from Leukemia, Medications and Allergies Home Medications Medication Instructions Recorded Confirmed Type Morphine Sulfate ER [Ms Contin] 15 mg PO BID 11/02/17 10/13/20 History glipiZIDE [Glucotrol] 10 mg PO BID 11/02/17 10/13/20 History [place]-3 Fatty Acids [[place]-3] 1,000 mg PO DAILY 04/23/18 10/13/20 History oxyCODONE-APAP 10-325MG [Percocet 1 tab PO QID PRN 04/23/18 10/13/20 History 10-325 mg] hydroCHLOROthiazide 12.5 mg PO DAILY 02/06/19 10/13/20 History Potassium Gluconate [Potassium 99 mg PO DAILY 11/21/19 10/13/20 History Gluconate ER] valACYclovir HCL [Valacyclovir] 1,000 mg PO DAILY 11/21/19 10/13/20 History Cyanocobalamin [Vitamin B-12] 1,000 mcg PO DAILY 10/13/20 10/13/20 History Insulin Glargine,Hum.rec.anlog See Protocol SQ DAILY 10/13/20 10/13/20 History [Lantus Solostar] OLANZapine [ZyPREXA] 2.5 mg PO DAILY 10/13/20 10/13/20 History Pioglitazone [Actos] 15 mg PO DAILY 10/13/20 10/13/20 History Pyridoxine HCl (Vitamin B6) 200 mg PO DAILY 10/13/20 10/13/20 History [Vitamin B-6] Sennosides/Docusate Sodium 1 tab PO DAILY 10/13/20 10/13/20 History [Senna-S 8.6-50 mg Tablet] Vitamin D3 50,000iu 1,250 mcg PO Q48H 10/13/20 10/13/20 History Ibuprofen [Motrin] 600 mg PO Q8HR PRN #30 tab 01/22/21 Rx Nitrofurantoin Monohyd/M-Cryst 100 mg PO Q12HR #14 cap 01/24/21 Rx [Macrobid] Allergies Allergy/AdvReac Type Severity Reaction Status Date / Time adhesive tape Allergy Severe Rash/Hives Verified 02/06/21 22:04 cortisone [Cortisone] Allergy Severe Anaphylaxis Verified 02/06/21 22:04 diphenhydramine HCl Allergy Severe Anaphylaxis Verified 02/06/21 22:04 [From Benadryl] Penicillins Allergy Severe Anaphylaxis Verified 02/06/21 22:04 Sulfa (Sulfonamide Allergy Intermediate Rash/Hives Verified 02/06/21 22:04 Antibiotics) Cephalosporins Allergy Mild Rash/Hives Verified 02/06/21 22:04 doxycycline Allergy Mild Rash/Hives Verified 02/06/21 22:04 Quinolones Allergy Mild Rash/Hives Verified 02/06/21 22:04 [place] And Derivatives Allergy Rash/Hives Verified 02/06/21 22:04 [[place]] Iodine and Iodide Containing Allergy Unknown Verified 02/06/21 22:04 Produc nitrofurantoin AdvReac Abdominal Verified 02/06/21 22:04 [From Macrobid] Pain Physical Exam Vitals: Vital Signs Temp Pulse Pulse Resp BP BP Pulse Ox 02/07/21 03:47 97.7 F 78 16 142/95 98 02/07/21 02:48 97.8 F 76 18 127/84 97 02/07/21 00:49 82 16 133/92 97 02/06/21 22:01 97.9 F 86 20 141/80 98 Intake and Output 02/06/21 02/06/21 02/07/21 14:59 22:59 06:59 Other: Weight 156.489 kg Constitutional: No acute distress, conversant, pleasant Eyes: Anicteric sclerae, moist conjunctiva, Pupils equal round reactive to light ENMT: NC/AT Oropharynx clear, no erythema, or exudates Neck: Supple, FROM, no masses, or JVD No carotid bruits No thyromegaly Lungs: Clear to auscultation Clear to percussion Normal respiratory effort, no accessory muscle use Cardiovascular: Heart regular in rate and rhythm, No murmurs, gallops, or rubs No peripheral edema Abdominal: Soft Tenderness to deep palpation of the left flank and left costovertebral angle, no guarding, rebound or rigidity Abdomen moving with respiration Normoactive bowel sounds No hepatomegaly, No splenomegaly No palpable mass No abdominal wall hernia noted Skin: Normal temperature, tone, texture, turgor No induration No subcutaneous nodules No rash, lesions No ulcers Extremities: No digital cyanosis No clubbing Pedal pulses intact and symmetrical Radial pulses intact and symmetrical No calf tenderness Psychiatric: Alert and oriented to person, place and time Appropriate affect fair judgement Neuro Muscles Strength 5/5 in all 4 extremities , right drop foot chronic Sensation to light touch grossly present throughout Cranial nerves II-XII grossly intact No focal sensory deficits Lymphatics: no palpable cervical or supraclavicular , or inguinal lymph nodes Results CBC & Chem 7: 02/07/21 00:26 09/26/21 00:26 Labs: Abnormal Lab Results - Last 24 Hours (Table) 02/07/21 02/07/21 02/07/21 Range/Units 00: 00:26 00:26 Hct 46.1 H (34.0-46.0) % Sodium 134 L (137-145) mmol/L BUN 20 H (7-17) mg/dL Glucose 303 H (74-99) mg/dL Calcium 10.3 H (8.4-10.2) mg/dL AST 37 H (14-36) U/L ALT 41 H (4-34) U/L Urine Appearance Cloudy H (Clear) Urine Protein 3+ H (Negative) Urine Glucose (UA) 4+ H (Negative) Urine Ketones 1+ H (Negative) Urine Nitrite Positive H (Negative) Ur Leukocyte Esterase Large H (Negative) Urine RBC 28 H (0-5) /hpf Urine WBC >182 H (0-5) /hpf Amorphous Sediment Rare H (None) /hpf Urine Bacteria Many H (None) /hpf Hyaline Casts 50 H (0-2) /lpf Urine Mucus Few H (None) /hpf Assessment and Plan Assessment: Acute pyelonephritis IV fluid hydration Follow-up cultures Aztreonam due to multiple antibiotics ALLERGY Consider ID consultation Tylenol for fever Continue home pain medications Zofran for nausea vomiting Chronic conditions Diabetes mellitus, hold oral hypoglycemic agents Insulin sliding scale COPD DuoNeb's when necessary History of left adrenal mass stable on CAT scan from 10 days ago compared to CAT scan from 2018 radiologist commented that it appears benign Verify home medications DVT prophylaxis heparin subcu 3 times a day Anticipated length of stay more than 2 midnights Anticipated discharge home
[2021-02-07] MEDS: valACYclovir HCL 1,000 MG TABLET PO SCH (07:35)
[2021-02-07] MEDS: INSULIN ASPART (NovoLOG) 100 UNIT/ML VIAL SQ SCH ×4 (07:35→20:59)
[2021-02-07] MEDS: MORPHINE SULFATE ER 15 MG TABLET PO SCH ×2 (07:36→20:49)
[2021-02-07] MEDS: ENOXAPARIN 40 MG/0.4 ML SYRINGE SQ SCH (07:36)
[2021-02-07 07:47] LABS: Glucose,Whole Blood 220 mg/dL (75-99)
[2021-02-07] MEDS: oxyCODONE-APAP 10-325MG 1 EACH TAB PO PRN ×3 (10:16→21:56)
[2021-02-07] MEDS: AZTREONAM 1 GM in SODIUM CHLORIDE 0.9% 50 ML IVPB SCH ×2 (10:16→19:53)
[2021-02-07 12:15] LABS: Glucose,Whole Blood 274 mg/dL (75-99)
[2021-02-07 17:51] LABS: Glucose,Whole Blood 235 mg/dL (75-99)
[2021-02-07 20:56] LABS: Glucose,Whole Blood 266 mg/dL (75-99)
[2021-02-07] MEDS ORDERED: PANTOPRAZOLE 40 MG TABLET PO STA (21:10)
[2021-02-07] MEDS: ALPRAZolam 0.5 MG TAB PO PRN (21:56)
[2021-02-08] MEDS: AZTREONAM 1 GM in SODIUM CHLORIDE 0.9% 50 ML IVPB SCH ×3 (03:04→18:03)
[2021-02-08 06:27] LABS: Glucose,Whole Blood 194 mg/dL (75-99)
[2021-02-08] MEDS: INSULIN ASPART (NovoLOG) 100 UNIT/ML VIAL SQ SCH ×4 (06:31→20:53)
[2021-02-08] MEDS: oxyCODONE-APAP 10-325MG 1 EACH TAB PO PRN ×4 (06:34→21:51)
[2021-02-08] MEDS: PANTOPRAZOLE 40 MG TABLET PO SCH (06:44)
[2021-02-08] MEDS: MORPHINE SULFATE ER 15 MG TABLET PO SCH ×2 (08:35→20:49)
[2021-02-08] MEDS: ENOXAPARIN 40 MG/0.4 ML SYRINGE SQ SCH (08:36)
[2021-02-08] MEDS: valACYclovir HCL 1,000 MG TABLET PO SCH (08:36)
[2021-02-08] MEDS: SENNOSIDES 8.6 MG TAB PO SCH (08:37)
--- NOTE | 2021-02-08 12:25 | P.PN ---
Subjective Patient is still complaining of some vague left lower quadrant abdominal pain. She appears very comfortable when I saw her. Objective - Vital Signs Vital signs: Vital Signs Temp 97.5 F L 02/08/21 08:00 Pulse 86 02/08/21 08:00 Resp 18 02/08/21 08:00 BP 112/71 02/08/21 08:00 Pulse Ox 94 L 02/08/21 08:00 Intake & Output 02/07/21 02/08/21 02/08/21 18:59 06:59 18:59 Intake Total 1100 Output Total 650 Balance 1100 -650 Intake: Intake, IV Titration 500 Amount Sodium Chloride 0.9% 1, 500 000 ml @ 120 mls/hr IV . Q8H20M [facility] Rx#:[id number] Oral 600 Output: Urine 650 Other: Voiding Method Toilet Toilet Toilet # Voids 1 - Exam General: The patient is awake and alert, in no distress Eye: there is normal conjunctiva bilaterally. Neck: The neck is supple, there is no JVD. Cardiovascular: Normal S1-S2, no S3-S4, no murmurs. Respiratory: Lungs clear to auscultation bilaterally Gastrointestinal: Abdomen is soft, nontender Musculoskeletal: There is no pedal edema. Neurological:. Speech is normal. Skin: Skin is warm and dry - Labs CBC & Chem 7: 02/07/21 00:26 02/07/21 00:26 Labs: Abnormal Lab Results - Last 24 Hours (Table) 02/07/21 02/07/21 02/08/21 Range/Units 17:49 20:52 06:25 POC Glucose (mg/dL) 235 H 266 H 194 H (75-99) mg/dL Microbiology - Last 24 Hours (Table) 02/07/21 00:26 Urine Culture - Preliminary Urine,Voided Assessment and Plan Assessment: 45 year old female with DM , htn , CVA patient comes in with 2 week history of worsening left flank pain, associated with repeated nausea and vomiting over past few days, and discoloration of the urine over past couple days. she has presented to the ED multiple times over this period, and workup does not reveal anything abnormal and she gets sent home in the ED, workup shoed UA positive for nitrite and leukocyte esterase with blood. she is admitted for IV ABx for questionable acute pyelonephritis CT abd done 10 days ago was unremarkable Assessment: Acute pyelonephritis Received aggressive IV fluid hydration Follow-up cultures Aztreonam due to multiple antibiotics ALLERGY Tylenol for fever Continue home pain medications Zofran for nausea vomiting Chronic conditions Diabetes mellitus, hold oral hypoglycemic agents Insulin sliding scale COPD DuoNeb's when necessary History of left adrenal mass stable on CAT scan from 10 days ago compared to CAT scan from 2018 radiologist commented that it appears benign Verify home medications DVT prophylaxis heparin subcu 3 times a day Anticipated length of stay more than 2 midnights Anticipated discharge home when urine culture result
[2021-02-08 13:31] LABS: Glucose,Whole Blood 198 mg/dL (75-99)
[2021-02-08 18:05] LABS: Glucose,Whole Blood 257 mg/dL (75-99)
[2021-02-08 20:52] LABS: Glucose,Whole Blood 232 mg/dL (75-99)
[2021-02-08] MEDS: SODIUM CHLORIDE 0.9% 1,000 ML IV SCH (20:57)
[2021-02-08] MEDS: ALPRAZolam 0.5 MG TAB PO PRN (21:51)
[2021-02-09] MEDS: AZTREONAM 1 GM in SODIUM CHLORIDE 0.9% 50 ML IVPB SCH ×3 (01:21→18:29)
[2021-02-09 06:39] LABS: Glucose,Whole Blood 185 mg/dL (75-99)
[2021-02-09] MEDS: INSULIN ASPART (NovoLOG) 100 UNIT/ML VIAL SQ SCH ×4 (06:41→21:11)
[2021-02-09] MEDS: PANTOPRAZOLE 40 MG TABLET PO SCH (06:41)
[2021-02-09] MEDS: MORPHINE SULFATE ER 15 MG TABLET PO SCH ×2 (08:49→20:49)
[2021-02-09] MEDS: SENNOSIDES 8.6 MG TAB PO SCH (08:49)
[2021-02-09] MEDS: ENOXAPARIN 40 MG/0.4 ML SYRINGE SQ SCH (08:49)
[2021-02-09] MEDS: valACYclovir HCL 1,000 MG TABLET PO SCH (08:49)
[2021-02-09] MEDS: oxyCODONE-APAP 10-325MG 1 EACH TAB PO PRN ×3 (09:50→22:03)
--- NOTE | 2021-02-09 12:37 | P.PN ---
Subjective Patient is feeling better today. Denies abdominal pain this morning. Objective - Vital Signs Vital signs: Vital Signs Temp 97.9 F 02/09/21 08:20 Pulse 73 02/09/21 08:20 Resp 18 02/09/21 08:20 BP 120/82 02/09/21 08:20 Pulse Ox 97 02/09/21 08:20 Intake & Output 02/08/21 02/09/21 02/09/21 18:59 06:59 18:59 Intake Total 120 240 Output Total 1100 750 Balance -980 -510 Intake: Oral 120 240 Output: Urine 1100 750 Other: Voiding Method Toilet Toilet Toilet - Exam General: The patient is awake and alert, in no distress Eye: there is normal conjunctiva bilaterally. Neck: The neck is supple, there is no JVD. Cardiovascular: Normal S1-S2, no S3-S4, no murmurs. Respiratory: Lungs clear to auscultation bilaterally Gastrointestinal: Abdomen is soft, nontender Musculoskeletal: There is no pedal edema. Neurological:. Speech is normal. Skin: Skin is warm and dry - Labs CBC & Chem 7: 02/07/21 00:26 02/07/21 00:26 Labs: Abnormal Lab Results - Last 24 Hours (Table) 02/08/21 02/08/21 02/08/21 Range/Units 13:30 18:04 20:51 POC Glucose (mg/dL) 198 H 257 H 232 H (75-99) mg/dL 02/09/21 Range/Units 06:36 POC Glucose (mg/dL) 185 H (75-99) mg/dL Microbiology - Last 24 Hours (Table) 02/07/21 00:26 Urine Culture - Final Urine,Voided Escherichia coli Assessment and Plan Assessment: 45 year old female with DM , htn , CVA patient comes in with 2 week history of worsening left flank pain, associated with repeated nausea and vomiting over past few days, and discoloration of the urine over past couple days. she has presented to the ED multiple times over thi s period, and workup does not reveal anything abnormal and she gets sent home in the ED, workup shoed UA positive for nitrite and leukocyte esterase with blood. she is admitted for IV ABx for questionable acute pyelonephritis CT abd done 10 days ago was unremarkable Assessment: Acute pyelonephritis Received aggressive IV fluid hydration Follow-up cultures Aztreonam due to multiple antibiotics ALLERGY Tylenol for fever Continue home pain medications Zofran for nausea vomiting Chronic conditions Diabetes mellitus, hold oral hypoglycemic agents Insulin sliding scale COPD DuoNeb's when necessary History of left adrenal mass stable on CAT scan from 10 days ago compared to CAT scan from 2018 radiologist commented that it appears benign Verify home medications DVT prophylaxis heparin subcu 3 times a day Anticipated length of stay more than 2 midnights Anticipated discharge home when urine culture result Despite discharge home tomorrow
[2021-02-09 13:12] LABS: Glucose,Whole Blood 202 mg/dL (75-99)
[2021-02-09 17:51] LABS: Glucose,Whole Blood 246 mg/dL (75-99)
[2021-02-09 21:01] LABS: Glucose,Whole Blood 237 mg/dL (75-99)
[2021-02-09] MEDS: hydroCHLOROthiazide 12.5 MG CAP PO SCH (21:29)
[2021-02-09] MEDS: ALPRAZolam 0.5 MG TAB PO PRN (22:03)
[2021-02-10] MEDS: AZTREONAM 1 GM in SODIUM CHLORIDE 0.9% 50 ML IVPB SCH ×2 (02:11→11:18)
[2021-02-10 06:52] LABS: Glucose,Whole Blood 177 mg/dL (75-99)
[2021-02-10] MEDS: PANTOPRAZOLE 40 MG TABLET PO SCH (06:53)
[2021-02-10] MEDS: oxyCODONE-APAP 10-325MG 1 EACH TAB PO PRN ×2 (06:53→14:21)
[2021-02-10] MEDS: INSULIN ASPART (NovoLOG) 100 UNIT/ML VIAL SQ SCH ×2 (06:54→12:52)
[2021-02-10] MEDS: MORPHINE SULFATE ER 15 MG TABLET PO SCH (09:05)
[2021-02-10] MEDS: ENOXAPARIN 40 MG/0.4 ML SYRINGE SQ SCH (09:05)
[2021-02-10] MEDS: valACYclovir HCL 1,000 MG TABLET PO SCH (09:05)
[2021-02-10] MEDS: hydroCHLOROthiazide 12.5 MG CAP PO SCH (09:06)
[2021-02-10] MEDS: SENNOSIDES 8.6 MG TAB PO SCH (09:06)
[2021-02-10] MEDS ORDERED: CYCLOBENZAPRINE 5 MG TAB PO PRN (10:24)
[2021-02-10 12:09] LABS: Glucose,Whole Blood 258 mg/dL (75-99)
--- NOTE | 2021-02-10 14:42 | P.DS ---
Providers Date of admission: 02/09/21 10:40 Expected date of discharge: 02/10/21 Attending physician: Brennon Rogel MD Primary care physician: Marleny Farrell Hospital Course: Discharge Diagnosis: Urinary tract infection, doubt pyelonephritis with no signs of systemic infection and negative CT Diabetes mellitus type 2 COPD Morbid obesity with BMI 46.8 Hospital Course: Patient is a 45-year-old female past medical history of diabetes mellitus type 2 on orals, COPD, and prior stroke along with fibromyalgia and chronic opiate dependency who presented to the hospital with complaints of dysuria. She had had multiple ER visits. She was admitted as observation. She will not have any fevers or elevated white blood cell count during her hospital stay. Urine culture came back with E. coli. She received 3 days of aztreonam due to her multiple antibiotic ALLERGIES. She was determined stable for discharge home. I suggested a course of Macrobid it is the only antibiotic she does not report anaphylactic or hives 2. She states she has abdominal pain with it. I suggest that she tries eating will take this medication. She then states that she needs to stay because her fibromyalgia is flaring. I explained to her that fibromyalgia is not a diagnosis that we hospitalized for. I also strongly suggest that she follow up with an guitar maker hand for desensitization, as she is young and likely could be admitted with a serious infection limiting antibiotic usage and possibly leading to if we cannot appropriately treat her. Again patient was just treated with Macrobid on 01/22 for the same symptoms which likely represent chronic cystitis and not a true urinary tract infection. 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 Outpatient CT 01/22 that demonstrated splenomegaly, left adrenal mass stable compared to 2018 and appears benign with a normal appendix, no evidence of renal stone or obstruction She was discharged home in stable condition. She'll follow up with her primary care physician. She has followed up with urology and gynecology in the past. Patient seen and examined at bedside. She complains of a fibromyalgia flare and not being able to walk. She claims any more IV antibiotics explained to her that she has had no fevers and her white blood cell count was normal on admission and that she has received 3 days of IV antibiotics and no longer requires acute hospitalization Vital signs reviewed and stable. General: non toxic, no distress, appears at stated age, morbid obesity Derm: warm, dry Head: atraumatic, normocephalic, symmetric Eyes: EOMI, no lid lag, anicteric sclera Mouth: no lip lesion, mucus membranes moist Cardiovascular: S1S2 reg, no murmur, positive posterior tibial pulse bilateral, Lungs: Decreased breath sounds bilateral, no rhonchi, no rales , no accessory muscle use Abdominal: soft, nontender to palpation, no guarding, no appreciable organomegaly Ext: no gross muscle atrophy, no edema, no contractures Psych: Alert, oriented, flat affect, withdrawn A total of 35 minutes of time were spent preparing this complex discharge summary . Patient Condition at Discharge: Good Plan - Discharge Summary New Discharge Prescriptions: New Aztreonam [Azactam] 1 gm IVPB Q8H Cyclobenzaprine [Flexeril] 5 mg PO TID PRN tab PRN Reason: Muscle Spasm Nitrofurantoin Monohyd/M-Cryst [Macrobid] 100 mg PO Q12HR #8 cap ALPRAZolam [Xanax] 0.5 mg PO HS PRN tab PRN Reason: Anxiety hydroCHLOROthiazide [Hydrodiuril] 12.5 mg PO DAILY cap Enoxaparin [Lovenox] 40 mg SQ DAILY each Morphine Sulfate ER [Ms Contin] 15 mg PO BID tablet oxyCODONE-APAP 10-325MG [Percocet 10-325 mg] 1 each PO QID PRN tab PRN Reason: Pain Continue glipiZIDE [Glucotrol] 10 mg PO BID valACYclovir HCL [Valacyclovir] 1,000 mg PO DAILY Cyanocobalamin (Vitamin B-12) [Vitamin B-12] 2,500 mcg PO BID Pyridoxine HCl (Vitamin B6) [Vitamin B-6] 500 mg PO BID Sennosides/Docusate Sodium [Senna-S 8.6-50 mg Tablet] 1 tab PO DAILY Pioglitazone [Actos] 15 mg PO DAILY Multivitamins, Thera [Multivitamin (formulary)] 1 tab PO DAILY Discontinued Morphine Sulfate ER [Ms Contin] 15 mg PO BID oxyCODONE-APAP 10-325MG [Percocet 10-325 mg] 1 tab PO QID PRN PRN Reason: Pain [place]-3 Fatty Acids [[place]-3] 1,000 mg PO DAILY ALPRAZolam [Xanax] 0.25 mg PO HS Hydrochlorothiazide [hydroCHLOROthiazide] 12.5 mg PO DAILY Discharge Medication List glipiZIDE [Glucotrol] 10 mg PO BID 11/02/17 [History] valACYclovir HCL [Valacyclovir] 1,000 mg PO DAILY 11/21/19 [History] Pioglitazone [Actos] 15 mg PO DAILY 10/13/20 [History] Sennosides/Docusate Sodium [Senna-S 8.6-50 mg Tablet] 1 tab PO DAILY 10/13/20 [History] Cyanocobalamin (Vitamin B-12) [Vitamin B-12] 2,500 mcg PO BID 02/07/21 [History] Multivitamins, Thera [Multivitamin (formulary)] 1 tab PO DAILY 02/07/21 [History] Pyridoxine HCl (Vitamin B6) [Vitamin B-6] 500 mg PO BID 02/07/21 [History] ALPRAZolam [Xanax] 0.5 mg PO HS PRN tab 02/10/21 [Rx] Aztreonam [Azactam] 1 gm IVPB Q8H 02/10/21 [Rx] Cyclobenzaprine [Flexeril] 5 mg PO TID PRN tab 02/10/21 [Rx] Enoxaparin [Lovenox] 40 mg SQ DAILY each 02/10/21 [Rx] Morphine Sulfate ER [Ms Contin] 15 mg PO BID tablet 02/10/21 [Rx] Nitrofurantoin Monohyd/M-Cryst [Macrobid] 100 mg PO Q12HR #8 cap 02/10/21 [Rx] hydroCHLOROthiazide [Hydrodiuril] 12.5 mg PO DAILY cap 02/10/21 [Rx] oxyCODONE-APAP 10-325MG [Percocet 10-325 mg] 1 each PO QID PRN tab 02/10/21 [Rx] Follow up Appointment(s)/Referral(s): Marleny Farrell DO [Primary Care Provider] - 1-2 days Discharge Disposition: HOME SELF-CARE
[2021-02-10 15:06] VITALS: BP 118/76; PULSE 80; RESP 18; TEMP 98.3
== END 2021-02-10 17:29 | disposition home or self-care (01) | DRG 690 ==
LOC: EC 21:57 → 6NMEDSUR 02-07 02:52 → 6PED 02-07 14:36 → OBSVTOIN 02-09 10:40
PROVIDERS: ADMIT Internal Medicine; ATTEND Internal Medicine
DX: N39.0 Urinary tract infection, site not specified (principal); N30.20 Other chronic cystitis without hematuria; Z68.42 Body mass index [BMI] 45.0-49.9, adult; J44.9 Chronic obstructive pulmonary disease, unspecified; E11.65 Type 2 diabetes mellitus with hyperglycemia; Z20.822 Contact with and (suspected) exposure to COVID-19; E66.01 Morbid (severe) obesity due to excess calories; F41.9 Anxiety disorder, unspecified; G40.909 Epilepsy, unspecified, not intractable, without status epilepticus; R11.2 Nausea with vomiting, unspecified; M21.372 Foot drop, left foot; E27.8 Other specified disorders of adrenal gland; R10.32 Left lower quadrant pain; I10 Essential (primary) hypertension; M79.7 Fibromyalgia; Z79.84 Long term (current) use of oral hypoglycemic drugs; Z79.899 Other long term (current) drug therapy; Z86.73 Personal history of transient ischemic attack (TIA), and cerebral infarction without residual deficits; Z87.440 Personal history of urinary (tract) infections; Z87.442 Personal history of urinary calculi; Z88.1 Allergy status to other antibiotic agents; Z88.8 Allergy status to other drugs, medicaments and biological substances; Z91.048 Other nonmedicinal substance allergy status; Z87.19 Personal history of other diseases of the digestive system; Z90.49 Acquired absence of other specified parts of digestive tract; Z88.0 Allergy status to penicillin; Z88.2 Allergy status to sulfonamides; Z91.041 Radiographic dye allergy status; Z91.02 Food additives allergy status; Z98.42 Cataract extraction status, left eye; Z98.41 Cataract extraction status, right eye
CPT/HCPCS: 36415; 80053; 81001; 81025; 83690; 85025; 87077; 87086; 87186; 87635; 96361; 96374; 96375; 99284

== ENCOUNTER 2021-02-15 14:32 | Emergency (ER) | payer OTHER ==
[2021-02-15 17:08] VITALS: RESP 18
[2021-02-15] MEDS ORDERED: SODIUM CHLORIDE 0.9% 1,000 ML IV STA (19:49)
[2021-02-15] MEDS ORDERED: HYDROmorphone 1 MG/ML 1 ML SYRINGE IVP STA (19:49)
[2021-02-15 20:15] LABS: Basophils # (A) 0.1 k/uL (0-0.2); Basophils % (A) 1 %; Eosinophils # (A) 0.1 k/uL (0-0.7); Eosinophils % (A) 1 %; HCT 44.6 % (34.0-46.0); HGB 15.3 gm/dL (11.4-16.0); Lymphocytes % (A) 28 %; MCHC 34.4 g/dL (31.0-37.0); MCV 90.3 fL (80.0-100.0); Mean Platelet Volume 8.9; Monocytes # (A) 0.4 k/uL (0-1.0); Monocytes % (A) 6 %; Neutrophils # (A) 4.5 k/uL (1.3-7.7); Neutrophils % (A) 62 %; Platelet Count 221 k/uL (150-450); RBC 4.94 m/uL (3.80-5.40); RDW 13.3 % (11.5-15.5); WBC 7.2 k/uL (3.8-10.6)
[2021-02-15 20:20] LABS: Appearance,Urine Cloudy (Clear); Bacteria,Urine Few /hpf; Bilirubin,Urine Negative (Negative); Blood,Urine Negative (Negative); Color,Urine Yellow; Glucose,Urine (UA) Trace (Negative); Hyaline Casts,Urine 13 /lpf (0-2); Ketones,Urine Negative (Negative); Leukocyte Esterase,Urine Negative (Negative); Mucus,Urine Few /hpf; Nitrite,Urine Negative (Negative); Protein,Urine 3+ (Negative); RBC,Urine 2 /hpf (0-5); Specific Gravity,Urine 1.028 (1.001-1.035); Squamous Epithelial Cell,Urine 6 /hpf (0-4); Urobilinogen,Urine <2.0 mg/dL (<2.0); WBC,Urine 2 /hpf (0-5)
[2021-02-15 20:24] LABS: ALT 42 U/L (4-34); AST 32 U/L (14-36); African American GFR (CKD) >90 (>60 ml/min/1.73 sqM); Alkaline Phosphatase 63 U/L (38-126); Anion Gap 9 mmol/L; Blood Urea Nitrogen 15 mg/dL (7-17); Calcium 10.2 mg/dL (8.4-10.2); Carbon Dioxide 27 mmol/L (22-30); Chloride 100 mmol/L (98-107); Glucose 207 mg/dL (74-99); Lipase 132 U/L (23-300); Non-African American GFR(CKD) >90 (>60 ml/min/1.73 sqM); Potassium 4.1 mmol/L (3.5-5.1); Sodium 136 mmol/L (137-145); Total Bilirubin 0.6 mg/dL (0.2-1.3); Total Protein 7.3 g/dL (6.3-8.2)
--- NOTE | 2021-02-15 20:38 | XR ---
EXAMINATION TYPE: XR KUB DATE OF EXAM: 02/15/2021 8:32 PM CLINICAL HISTORY: No pain. TECHNIQUE: Single supine KUB image of the abdomen is obtained. COMPARISON: None. FINDINGS: Scattered gas is seen in non-distended small bowel loops. Gas and fecal material is seen in non-distended colon. There is no visceromegaly, pneumoperitoneum, or abnormal calcification apprecia ruma. The lung bases are clear and the osseous structures are intact. Cholecystectomy clips. IMPRESSION: Overall nonobstructive bowel gas pattern.
[2021-02-15] MEDS ORDERED: ONDANSETRON 4 MG/2 ML VIAL IVP STA (20:48)
--- NOTE | 2021-02-15 21:14 | ED ---
Abdominal Pain HPI - General Chief Complaint: Abdominal Pain Stated Complaint: abd pain Time Seen by Provider: 02/15/21 17:10 Source: patient Mode of arrival: ambulatory Limitations: no limitations - History of Present Illness Initial Comments: 45-year-old female presents emergency room with reported lower abdominal pain. She has been seen multiple times in the emergency room for similar complaint. Patient was just hospitalized for this complaint and discharged on the . States that she was diagnosed with a urinary tract infection that she does get recurrent urinary tract infections. She was on aztreonam as she has multiple ALLERGIES. States that she was discharged home not currently on any antibiotics. She continues to have abdominal pain. States that she attempted to call the GI specialist however she is not completing endoscopies for another year. Patient was frustrated she is continuing to have pain and therefore came to the emergency room. She is pain contract and does take morphine and Percocet at home for pain control. Patient admits to abdominal cramping with diarrhea. States the pain starts in her left flank and radiates around to her left lower quadrant. No abnormal vaginal bleeding or discharge. No concern for . No fevers. Admits to nausea with some vomiting. No other alleviating, precipitating or modifying factors - Related Data Home Medications Medication Instructions Recorded Confirmed glipiZIDE [Glucotrol] 10 mg PO BID 11/02/17 02/07/21 valACYclovir HCL [Valacyclovir] 1,000 mg PO DAILY 11/21/19 02/07/21 Pioglitazone [Actos] 15 mg PO DAILY 10/13/20 02/07/21 Sennosides/Docusate Sodium 1 tab PO DAILY 10/13/20 02/07/21 [Senna-S 8.6-50 mg Tablet] Cyanocobalamin (Vitamin B-12) 2,500 mcg PO BID 02/07/21 02/07/21 [Vitamin B-12] Multivitamins, Thera [Multivitamin 1 tab PO DAILY 02/07/21 02/07/21 (formulary)] Pyridoxine HCl (Vitamin B6) 500 mg PO BID 02/07/21 02/07/21 [Vitamin B-6] Previous Rx's Medication Instructions Recorded ALPRAZolam [Xanax] 0.5 mg PO HS PRN tab 02/10/21 Morphine Sulfate ER [Ms Contin] 15 mg PO BID tablet 02/10/21 Nitrofurantoin Monohyd/M-Cryst 100 mg PO Q12HR #8 cap 02/10/21 [Macrobid] hydroCHLOROthiazide [Hydrodiuril] 12.5 mg PO DAILY cap 02/10/21 oxyCODONE-APAP 10-325MG [Percocet 1 each PO QID PRN tab 02/10/21 10-325 mg] Dicyclomine [Bentyl] 20 mg PO TID PRN #30 tablet 02/15/21 Famotidine [Pepcid] 20 mg PO DAILY #28 tablet 02/15/21 Metoclopramide [Reglan] 10 mg PO TID PRN #15 tab 02/15/21 Sucralfate [Carafate] 1 gm PO ACHS #56 tablet 02/15/21 Allergies Allergy/AdvReac Type Severity Reaction Status Date / Time adhesive tape Allergy Severe Rash/Hives Verified 02/15/21 17:05 cortisone [Cortisone] Allergy Severe Anaphylaxis Verified 02/15/21 17:05 diphenhydramine HCl Allergy Severe Anaphylaxis Verified 02/15/21 17:05 [From Benadryl] Penicillins Allergy Severe Anaphylaxis Verified 02/15/21 17:05 Sulfa (Sulfonamide Allergy Intermediate Rash/Hives Verified 02/15/21 17:05 Antibiotics) Cephalosporins Allergy Mild Rash/Hives Verified 02/15/21 17:05 doxycycline Allergy Mild Rash/Hives Verified 02/15/21 17:05 Quinolones Allergy Mild Rash/Hives Verified 02/15/21 17:05 Primera And Derivatives Allergy Rash/Hives Verified 02/15/21 17:05 [Primera] Iodine and Iodide Containing Allergy Unknown Verified 02/15/21 17:05 Produc nitrofurantoin AdvReac Abdominal Verified 02/15/21 17:05 [From Macrobid] Pain Review of Systems ROS Statement: Those systems with pertinent positive or pertinent negative responses have been documented in the HPI. ROS Other: All systems not noted in ROS Statement are negative. 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 Date of last positivie culture/infection: 07/04/01 MDRO Source:: gallbladder Past Surgical History: Cholecystectomy, Hernia Repair Additional Past Surgical History / Comment(s): CATARACT SURGERY, kidney stents ; Colonoscopies, ventral hernia 08/02/17, Past Anesthesia/Blood Transfusion Reactions: No Reported Reaction Past Psychological History: Anxiety Smoking Status: Never smoker Past Alcohol Use History: None Reported Past Drug Use History: None Reported - Past Family History Father Family Medical History: No Reported History Mother Family Medical History: Cancer Additional Family Medical History / Comment(s): breast cancer (axilla location) dx at age 45. Maternal aunt dx with breast cancer @50, at age 54 from breast cancer Sister(s) Family Medical History: Cancer Additional Family Medical History / Comment(s): at age 8 from Leukemia, General Exam Limitations: no limitations General appearance: alert, in no apparent distress Head exam: Present: atraumatic, normocephalic, normal inspection Eye exam: Present: normal appearance, PERRL, EOMI. Absent: scleral icterus, conjunctival injection, periorbital swelling ENT exam: Present: normal exam, mucous membranes moist Neck exam: Present: normal inspection. Absent: tenderness, meningismus, lymphadenopathy Respiratory exam: Present: normal lung sounds bilaterally. Absent: respiratory distress, wheezes, rales, rhonchi, stridor Cardiovascular Exam: Present: regular rate, normal rhythm, normal heart sounds. Absent: systolic murmur, diastolic murmur, rubs, gallop, clicks GI/Abdominal exam: Present: soft, tenderness (llq. Non peritoneal. no tenderness to palpation when distracted with conversation), normal bowel sounds. Absent: distended, guarding, rebound, rigid Extremities exam: Present: normal inspection, full ROM, normal capillary refill. Absent: tenderness, pedal edema, joint swelling, calf tenderness Back exam: Present: normal inspection Neurological exam: Present: alert, oriented X3, CN II-XII intact Psychiatric exam: Present: normal affect, normal mood Skin exam: Present: warm, dry, intact, normal color. Absent: rash Course Vital Signs 02/15/21 02/15/21 02/15/21 17:07 21:19 21:48 Temperature 98.3 F 98.0 F 98.0 F Pulse Rate 89 82 82 Respiratory 18 18 18 Rate Blood Pressure 144/97 107/69 107/69 O2 Sat by Pulse 96 94 L 94 L Oximetry Medical Decision Making - Medical Decision Making Upon arrival patient is placed in hallway 15. Thorough history and physical exam is performed. IV is established. Patient given a dose of pain meds. L aboratory studies are repeated. The patient has had 10 CTs of her abdomen and pelvis in the past 4 for this similar complaint. Laboratory studies are reviewed. I did review the patient's CT from her previous visit earlier last week. She is reevaluated, appears comfortable, resting on the stretcher playing on her phone. I did discuss diagnosis, differential and treatment options. Using the patient would benefit from an EGD and colonoscopy. Patient will be given general surgery recommendations. The patient will be placed on Bentyl, Reglan, Carafate and Pepcid. She is instructed to attempt the medications and see if she has any improvement in her symptoms. Patient agreed to this. Asked to return for any new or worsening symptoms. Patient was discharged home in stable condition - Lab Data Result diagrams: 02/15/21 19:55 02/15/21 19:55 Lab Results 02/15/21 02/15/21 02/15/21 Range/Units 19:55 19:55 19:55 WBC 7.2 (3.8-10.6) k/uL RBC 4.94 (3.80-5.40) m/uL Hgb 15.3 (11.4-16.0) gm/dL Hct 44.6 (34.0-46.0) % MCV 90.3 (80.0-100.0) fL MCH 31.0 (25.0-35.0) pg MCHC 34.4 (31.0-37.0) g/dL RDW 13.3 (11.5-15.5) % Plt Count 221 (150-450) k/uL MPV 8.9 Neutrophils % 62 % Lymphocytes % 28 % Monocytes % 6 % Eosinophils % 1 % Basophils % 1 % Neutrophils # 4.5 (1.3-7.7) k/uL Lymphocytes # 2.0 (1.0-4.8) k/uL Monocytes # 0.4 (0-1.0) k/uL Eosinophils # 0.1 (0-0.7) k/uL Basophils # 0.1 (0-0.2) k/uL Sodium (137-145) mmol/L Potassium (3.5-5.1) mmol/L Chloride (98-107) mmol/L Carbon Dioxide (22-30) mmol/L Anion Gap mmol/L BUN (7-17) mg/dL Creatinine (0.52-1.04) mg/dL Est GFR (CKD-EPI)AfAm (>60 ml/min/1.73 sqM) Est GFR (CKD-EPI)NonAf (>60 ml/min/1.73 sqM) Glucose (74-99) mg/dL Plasma Lactic Acid [place] (0.7-2.0) mmol/L Calcium (8.4-10.2) mg/dL Total Bilirubin (0.2-1.3) mg/dL AST (14-36) U/L ALT (4-34) U/L Alkaline Phosphatase (38-126) U/L Total Protein (6.3-8.2) g/dL Albumin (3.5-5.0) g/dL Lipase (23-300) U/L Urine Color Yellow Urine Appearance Cloudy H (Clear) Urine pH 6.0 (5.0-8.0) Ur Specific [place] 1.028 (1.001-1.035) Urine Protein 3+ H (Negative) Urine Glucose (UA) Trace H (Negative) Urine Ketones Negative (Negative) Urine Blood Negative (Negative) Urine Nitrite Negative (Negative) Urine Bilirubin Negative (Negative) Urine Urobilinogen <2.0 (<2.0) mg/dL Ur Leukocyte Esterase Negative (Negative) Urine RBC 2 (0-5) /hpf Urine WBC 2 (0-5) /hpf Ur Squamous Epith Cells 6 H (0-4) /hpf Urine Bacteria Few H (None) /hpf Hyaline Casts 13 H (0-2) /lpf Urine Mucus Few H (None) /hpf Urine HCG, Qual Not Detected (Not Detectd) 02/15/21 02/15/21 Range/Units 19:55 20:12 WBC (3.8-10.6) k/uL RBC (3.80-5.40) m/uL Hgb (11.4-16.0) gm/dL Hct (34.0-46.0) % MCV (80.0-100.0) fL MCH (25.0-35.0) pg MCHC (31.0-37.0) g/dL RDW (11.5-15.5) % Plt Count (150-450) k/uL MPV Neutrophils % % Lymphocytes % % Monocytes % % Eosinophils % % Basophils % % Neutrophils # (1.3-7.7) k/uL Lymphocytes # (1.0-4.8) k/uL Monocytes # (0-1.0) k/uL Eosinophils # (0-0.7) k/uL Basophils # (0-0.2) k/uL Sodium 136 L (137-145) mmol/L Potassium 4.1 (3.5-5.1) mmol/L Chloride 100 (98-107) mmol/L Carbon Dioxide 27 (22-30) mmol/L Anion Gap 9 mmol/L BUN 15 (7-17) mg/dL Creatinine 0.58 (0.52-1.04) mg/dL Est GFR (CKD-EPI)AfAm >90 (>60 ml/min/1.73 sqM) Est GFR (CKD-EPI)NonAf >90 (>60 ml/min/1.73 sqM) Glucose 207 H (74-99) mg/dL Plasma Lactic Acid [place] 0.8 (0.7-2.0) mmol/L Calcium 10.2 (8.4-10.2) mg/dL Total Bilirubin 0.6 (0.2-1.3) mg/dL AST 32 (14-36) U/L ALT 42 H (4-34) U/L Alkaline Phosphatase 63 (38-126) U/L Total Protein 7.3 (6.3-8.2) g/dL Albumin 4.0 (3.5-5.0) g/dL Lipase 132 (23-300) U/L Urine Color Urine Appearance (Clear) Urine pH (5.0-8.0) Ur Specific [place] (1.001-1.035) Urine Protein (Negative) Urine Glucose (UA) (Negative) Urine Ketones (Negative) Urine Blood (Negative) Urine Nitrite (Negative) Urine Bilirubin (Negative) Urine Urobilinogen (<2.0) mg/dL Ur Leukocyte Esterase (Negative) Urine RBC (0-5) /hpf Urine WBC (0-5) /hpf Ur Squamous Epith Cells (0-4) /hpf Urine Bacteria (None) /hpf Hyaline Casts (0-2) /lpf Urine Mucus (None) /hpf Urine HCG, Qual (Not Detectd) Disposition Clinical Impression: Abdominal pain Disposition: HOME SELF-CARE Condition: Stable Instructions (If sedation given, give patient instructions): Abdominal Pain (ED) Additional Instructions: You should have an EGD and colonoscopy for further evaluation of your abdominal pain. Take the medications prescribed as directed and follow-up with your primary care doctor in 2-4 days. Return to the emergency room for any new or worsening symptoms Prescriptions: Dicyclomine [Bentyl] 20 mg PO TID PRN #30 tablet PRN Reason: Diarrhea Sucralfate [Carafate] 1 gm PO ACHS #56 tablet Famotidine [Pepcid] 20 mg PO DAILY #28 tablet Metoclopramide [Reglan] 10 mg PO TID PRN #15 tab PRN Reason: Nausea Is patient prescribed a controlled substance at d/c from ED?: No Referrals: Marleny Farrell DO [Primary Care Provider] - 1-2 days Braden Nye MD [STAFF PHYSICIAN] - 1-2 days Gurwinder Madsen DO [Doctor of Osteopathic Medicine] - 1-2 days Laura Alejo MD [STAFF PHYSICIAN] - 1-2 days Trevor Wallace MD [Medical Doctor] - 1-2 days Time of Disposition: 21:37
[2021-02-15 21:22] VITALS: BP 107/69; PULSE 82; TEMP 98
== END 2021-02-15 21:49 | disposition home or self-care (01) ==
LOC: EC 14:32
DX: R10.32 Left lower quadrant pain (principal); E11.9 Type 2 diabetes mellitus without complications; I10 Essential (primary) hypertension; F41.9 Anxiety disorder, unspecified; G40.909 Epilepsy, unspecified, not intractable, without status epilepticus; M79.7 Fibromyalgia; Z79.84 Long term (current) use of oral hypoglycemic drugs; Z79.899 Other long term (current) drug therapy; Z86.73 Personal history of transient ischemic attack (TIA), and cerebral infarction without residual deficits; Z88.1 Allergy status to other antibiotic agents; Z88.0 Allergy status to penicillin; Z88.2 Allergy status to sulfonamides; Z88.8 Allergy status to other drugs, medicaments and biological substances; Z90.49 Acquired absence of other specified parts of digestive tract; Z80.3 Family history of malignant neoplasm of breast
CPT/HCPCS: 36415; 80053; 83605; 83690; 85025; 81001; 81025; 74018; 99284; 96374; 96375; 96361; J2405; J1170

== ENCOUNTER 2021-03-07 07:21 | Emergency (ER) | payer OTHER ==
[2021-03-07 07:32] VITALS: RESP 18
[2021-03-07] MEDS ORDERED: MORPHINE SULFATE 4 MG/ML SYRINGE IV STA (07:50)
--- NOTE | 2021-03-07 07:52 | ED ---
General Adult HPI - General Chief complaint: Abdominal Pain Stated complaint: Female Time Seen by Provider: 03/07/21 07:37 Source: patient Mode of arrival: ambulatory Limitations: no limitations - History of Present Illness Initial comments: Dictation was produced using [email or web address] dictation software. please excuse any grammatical, word or spelling errors. Chief Complaint: 45-year-old female with past medical history of chronic pain, fibromyalgia presents to emergency department for left flank, left abdominal pain History of Present Illness: Patient is a 45-year-old female past medical history of chronic pain. Patient states that she is here today for 1 day of left lower quadrant abdominal pain and left-sided flank pain. Patient's worried that she has an ovarian issue. She is reports history of ovarian cyst. Patient denies any fever. States that she has no diarrhea. She reports the pain as constant and nonradiating. She states that it's a sharp achy pain. She completes of nausea but no vomiting. Patient states that she had some vaginal bleeding after the initial onset of pain. Patient still gets regular menstrual cycles. She is sexually active. No vaginal discharge. She has not noticed any blood in her ur ine or changes in her urinary color The ROS documented in this emergency department record has been reviewed and confirmed by me. Those systems with pertinent positive or negative responses have been documented in the HPI. All other systems are other negative and/or noncontributory. PHYSICAL EXAM: General Impression: Alert and oriented x3, not in acute distress HEENT: Normocephalic atraumatic, extra-ocular movements intact, pupils equal and reactive to light bilaterally, mucous membranes moist. Cardiovascular: Heart regular rate and rhythm Chest: Able to complete full sentences, no retractions, no tachypnea Abdomen: abdomen soft, mild tenderness to the left lower quadrant, non-distende d, no organomegaly Musculoskeletal: Pulses present and equal in all extremities, no peripheral edema Motor: no focal deficits noted Neurological: CN II-XII grossly intact, no focal motor or sensory deficits noted Skin: Intact with no visualized rashes Psych: Normal affect and mood ED course: 45-year-old female presents to the emergency department for left lower abdominal pain. Vital signs upon arrival are within acceptable limits. Patient's well-appearing at bedside. She does not appear to be in significant acute distress. Laboratory evaluation obtained. CBC, metabolic panel is unremarkable. Urinalysis shows 14 white blood cells but looks like a contaminated sample. Negative nitrates. Transvaginal ultrasound shows uterine bleeding myeloma. Unable to visualize ovaries due to overlying bowel and morbid obesity. Patient given IV analgesics symptoms improved. Patient's well-appearing at the bedside upon reevaluation at 10:15 AM. Patient refused pelvic exam. Disposition option s were discussed. Patient's agreeable for discharge and to follow-up with her business services director for uterine fibroids. - Related Data Home Medications Medication Instructions Recorded Confirmed glipiZIDE [Glucotrol] 10 mg PO BID 11/02/17 03/07/21 valACYclovir HCL [Valacyclovir] 1,000 mg PO DAILY 11/21/19 03/07/21 Pioglitazone [Actos] 15 mg PO DAILY 10/13/20 03/07/21 Sennosides/Docusate Sodium 1 tab PO DAILY 10/13/20 03/07/21 [Senna-S 8.6-50 mg Tablet] Cyanocobalamin (Vitamin B-12) 2,500 mcg PO BID 02/07/21 03/07/21 [Vitamin B-12] Multivitamins, Thera [Multivitamin 1 tab PO DAILY 02/07/21 03/07/21 (formulary)] Pyridoxine HCl (Vitamin B6) 500 mg PO BID 02/07/21 03/07/21 [Vitamin B-6] oxyCODONE-APAP 10-325MG [Percocet 1 tab PO QID PRN 03/07/21 03/07/21 10-325 mg] Previous Rx's Medication Instructions Recorded ALPRAZolam [Xanax] 0.5 mg PO HS PRN tab 02/10/21 Morphine Sulfate ER [Ms Contin] 15 mg PO BID tablet 02/10/21 hydroCHLOROthiazide [Hydrodiuril] 12.5 mg PO DAILY cap 02/10/21 Dicyclomine [Bentyl] 20 mg PO TID PRN #30 tablet 02/15/21 Famotidine [Pepcid] 20 mg PO DAILY #28 tablet 02/15/21 Metoclopramide [Reglan] 10 mg PO TID PRN #15 tab 02/15/21 Sucralfate [Carafate] 1 gm PO ACHS #56 tablet 02/15/21 Allergies Allergy/AdvReac Type Severity Reaction Status Date / Time adhesive tape Allergy Severe Rash/Hives Verified 03/07/21 07:33 cortisone [Cortisone] Allergy Severe Anaphylaxis Verified 03/07/21 07:33 diphenhydramine HCl Allergy Severe Anaphylaxis Verified 03/07/21 07:33 [From Benadryl] Penicillins Allergy Severe Anaphylaxis Verified 03/07/21 07:33 Sulfa (Sulfonamide Allergy Intermediate Rash/Hives Verified 03/07/21 07:33 Antibiotics) Cephalosporins Allergy Mild Rash/Hives Verified 03/07/21 07:33 doxycycline Allergy Mild Rash/Hives Verified 03/07/21 07:33 Quinolones Allergy Mild Rash/Hives Verified 03/07/21 07:33 [place] And Derivatives Allergy Rash/Hives Verified 03/07/21 07:33 [[place]] Iodine and Iodide Containing Allergy Unknown Verified 03/07/21 07:33 Produc nitrofurantoin AdvReac Abdominal Verified 03/07/21 07:33 [From Macrobid] Pain Review of Systems ROS Statement: Those systems with pertinent positive or pertinent negative responses have been documented in the HPI. ROS Other: All systems not noted in ROS Statement are negative. 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 Date of last positivie culture/infection: 07/04/01 MDRO Source:: gallbladder Past Surgical History: Cholecystectomy, Hernia Repair Additional Past Surgical History / Comment(s): CATARACT SURGERY, kidney stents ; Colonoscopies, ventral hernia 08/02/17, Past Anesthesia/Blood Transfusion Reactions: No Reported Reaction Past Psychological History: Anxiety Smoking Status: Never smoker Past Alcohol Use History: None Reported Past Drug Use History: None Reported - Past Family History Father Family Medical History: No Reported History Mother Family Medical History: Cancer Additional Family Medical History / Comment(s): breast cancer (axilla location) dx at age 45. Maternal aunt dx with breast cancer @50, at age 54 from breast cancer Sister(s) Family Medical History: Cancer Additional Family Medical History / Comment(s): at age 8 from Leukemia, General Exam Limitations: no limitations Course Vital Signs 03/07/21 07:30 Temperature 97.1 F L Pulse Rate 68 Respiratory 18 Rate Blood Pressure 137/80 O2 Sat by Pulse 97 Oximetry Medical Decision Making - Lab Data Result diagrams: 03/07/21 08:06 03/07/21 08:06 Lab Results 03/07/21 03/07/21 03/07/21 Range/Units 08:06 08:06 08:06 WBC 4.8 (3.8-10.6) k/uL RBC 5.09 (3.80-5.40) m/uL Hgb 15.0 (11.4-16.0) gm/dL Hct 46.6 H (34.0-46.0) % MCV 91.6 (80.0-100.0) fL MCH 29.5 (25.0-35.0) pg MCHC 32.2 (31.0-37.0) g/dL RDW 12.8 (11.5-15.5) % Plt Count 209 (150-450) k/uL MPV 8.6 Neutrophils % 62 % Lymphocytes % 27 % Monocytes % 7 % Eosinophils % 0 % Basophils % 1 % Neutrophils # 3.0 (1.3-7.7) k/uL Lymphocytes # 1.3 (1.0-4.8) k/uL Monocytes # 0.3 (0-1.0) k/uL Eosinophils # 0.0 (0-0.7) k/uL Basophils # 0.0 (0-0.2) k/uL Sodium 135 L (137-145) mmol/L Potassium 4.5 (3.5-5.1) mmol/L Chloride 99 (98-107) mmol/L Carbon Dioxide 29 (22-30) mmol/L Anion Gap 7 mmol/L BUN 16 (7-17) mg/dL Creatinine 0.60 (0.52-1.04) mg/dL Est GFR (CKD-EPI)AfAm >90 (>60 ml/min/1.73 sqM) Est GFR (CKD-EPI)NonAf >90 (>60 ml/min/1.73 sqM) Glucose 285 H (74-99) mg/dL Calcium 9.9 (8.4-10.2) mg/dL Total Bilirubin 0.6 (0.2-1.3) mg/dL AST 30 (14-36) U/L ALT 31 (4-34) U/L Alkaline Phosphatase 62 (38-126) U/L Total Protein 6.9 (6.3-8.2) g/dL Albumin 3.6 (3.5-5.0) g/dL Lipase 145 (23-300) U/L Urine Color Yellow Urine Appearance Cloudy H (Clear) Urine pH 7.0 (5.0-8.0) Ur Specific [place] 1.020 (1.001-1.035) Urine Protein 2+ H (Negative) Urine Glucose (UA) 3+ H (Negative) Urine Ketones Negative (Negative) Urine Blood Moderate H (Negative) Urine Nitrite Negative (Negative) Urine Bilirubin Negative (Negative) Urine Urobilinogen <2.0 (<2.0) mg/dL Ur Leukocyte Esterase Small H (Negative) Urine RBC 3 (0-5) /hpf Urine WBC 14 H (0-5) /hpf Ur Squamous Epith Cells 9 H (0-4) /hpf Urine Bacteria Rare H (None) /hpf Urine Mucus Rare H (None) /hpf Urine HCG, Qual (Not Detectd) 03/07/21 Range/Units 08:07 WBC (3.8-10.6) k/uL RBC (3.80-5.40) m/uL Hgb (11.4-16.0) gm/dL Hct (34.0-46.0) % MCV (80.0-100.0) fL MCH (25.0-35.0) pg MCHC (31.0-37.0) g/dL RDW (11.5-15.5) % Plt Count (150-450) k/uL MPV Neutrophils % % Lymphocytes % % Monocytes % % Eosinophils % % Basophils % % Neutrophils # (1.3-7.7) k/uL Lymphocytes # (1.0-4.8) k/uL Monocytes # (0-1.0) k/uL Eosinophils # (0-0.7) k/uL Basophils # (0-0.2) k/uL Sodium (137-145) mmol/L Potassium (3.5-5.1) mmol/L Chloride (98-107) mmol/L Carbon Dioxide (22-30) mmol/L Anion Gap mmol/L BUN (7-17) mg/dL Creatinine (0.52-1.04) mg/dL Est GFR (CKD-EPI)AfAm (>60 ml/min/1.73 sqM) Est GFR (CKD-EPI)NonAf (>60 ml/min/1.73 sqM) Glucose (74-99) mg/dL Calcium (8.4-10.2) mg/dL Total Bilirubin (0.2-1.3) mg/dL AST (14-36) U/L ALT (4-34) U/L Alkaline Phosphatase (38-126) U/L Total Protein (6.3-8.2) g/dL Albumin (3.5-5.0) g/dL Lipase (23-300) U/L Urine Color Urine Appearance (Clear) Urine pH (5.0-8.0) Ur Specific [place] (1.001-1.035) Urine Protein (Negative) Urine Glucose (UA) (Negative) Urine Ketones (Negative) Urine Blood (Negative) Urine Nitrite (Negative) Urine Bilirubin (Negative) Urine Urobilinogen (<2.0) mg/dL Ur Leukocyte Esterase (Negative) Urine RBC (0-5) /hpf Urine WBC (0-5) /hpf Ur Squamous Epith Cells (0-4) /hpf Urine Bacteria (None) /hpf Urine Mucus (None) /hpf Urine HCG, Qual Not Detected (Not Detectd) Disposition Clinical Impression: Pelvic pain Disposition: HOME SELF-CARE Condition: Fair Instructions (If sedation given, give patient instructions): Pelvic Pain in Women (ED), Myomectomy (DC) Additional Instructions: follow up with your business services director. today you were diagnosed with symptomatic uterine fibroids. Is patient prescribed a controlled substance at d/c from ED?: No Referrals: Marleny Farrell DO [Primary Care Provider] - 1-2 days
[2021-03-07 08:15] LABS: Basophils % (A) 1 %; Eosinophils % (A) 0 %; HCT 46.6 % (34.0-46.0); Lymphocytes # (A) 1.3 k/uL (1.0-4.8); Lymphocytes % (A) 27 %; MCH 29.5 pg (25.0-35.0); MCHC 32.2 g/dL (31.0-37.0); MCV 91.6 fL (80.0-100.0); Mean Platelet Volume 8.6; Monocytes # (A) 0.3 k/uL (0-1.0); Monocytes % (A) 7 %; Neutrophils % (A) 62 %; Platelet Count 209 k/uL (150-450); RBC 5.09 m/uL (3.80-5.40); RDW 12.8 % (11.5-15.5); WBC 4.8 k/uL (3.8-10.6)
[2021-03-07] MEDS ORDERED: ONDANSETRON 4 MG/2 ML VIAL IVP STA (08:15)
[2021-03-07 08:22] LABS: Appearance,Urine Cloudy (Clear); Bacteria,Urine Rare /hpf; Bilirubin,Urine Negative (Negative); Blood,Urine Moderate (Negative); Color,Urine Yellow; Glucose,Urine (UA) 3+ (Negative); Ketones,Urine Negative (Negative); Leukocyte Esterase,Urine Small (Negative); Mucus,Urine Rare /hpf; Nitrite,Urine Negative (Negative); Protein,Urine 2+ (Negative); RBC,Urine 3 /hpf (0-5); Squamous Epithelial Cell,Urine 9 /hpf (0-4); Urobilinogen,Urine <2.0 mg/dL (<2.0); WBC,Urine 14 /hpf (0-5)
[2021-03-07 08:31] LABS: ALT 31 U/L (4-34); AST 30 U/L (14-36); African American GFR (CKD) >90 (>60 ml/min/1.73 sqM); Albumin 3.6 g/dL (3.5-5.0); Alkaline Phosphatase 62 U/L (38-126); Anion Gap 7 mmol/L; Blood Urea Nitrogen 16 mg/dL (7-17); Calcium 9.9 mg/dL (8.4-10.2); Carbon Dioxide 29 mmol/L (22-30); Chloride 99 mmol/L (98-107); Glucose 285 mg/dL (74-99); Lipase 145 U/L (23-300); Non-African American GFR(CKD) >90 (>60 ml/min/1.73 sqM); Potassium 4.5 mmol/L (3.5-5.1); Sodium 135 mmol/L (137-145); Total Bilirubin 0.6 mg/dL (0.2-1.3); Total Protein 6.9 g/dL (6.3-8.2)
--- NOTE | 2021-03-07 09:16 | US ---
EXAMINATION TYPE: US transvaginal DATE OF EXAM: 03/07/2021 COMPARISON: CT CLINICAL HISTORY: left pelvic pain. TECHNIQUE: Transvaginal (TV). Date of LMP: 12-29-20 EXAM MEASUREMENTS: Uterus: 8.9 x 4.2 x 5.0 cm Endometrial Stripe: 0.4 cm Right Ovary: due to morbid obesity and overlying bowel, not visualized Left Ovary: due to morbid obesity and overlying bowel, not visualized Morbidly obese patient. 1. Uterus: Anteverted, heterogeneous 2. Endometrium: nl 3. Right Ovary: due to morbid obesity and overlying bowel, not visualized 4. Left Ovary: due to morbid obesity and overlying bowel, not visualized 5. Bilateral Adnexa: wnl 6. Posterior cul-de-sac: wnl IMPRESSION: Uterine myometrial heterogeneity and could reflect small leiomyomatous change. Nonvisualization of th e ovaries.
[2021-03-07 10:50] VITALS: BP 139/68; PULSE 79; TEMP 98
== END 2021-03-07 10:49 | disposition home or self-care (01) ==
LOC: EC 07:21
DX: R10.2 Pelvic and perineal pain (principal); C90.00 Multiple myeloma not having achieved remission; E11.9 Type 2 diabetes mellitus without complications; I10 Essential (primary) hypertension; G40.909 Epilepsy, unspecified, not intractable, without status epilepticus; M79.7 Fibromyalgia; E66.01 Morbid (severe) obesity due to excess calories; Z79.84 Long term (current) use of oral hypoglycemic drugs; Z79.899 Other long term (current) drug therapy; Z86.73 Personal history of transient ischemic attack (TIA), and cerebral infarction without residual deficits; Z88.0 Allergy status to penicillin; Z88.1 Allergy status to other antibiotic agents; Z88.2 Allergy status to sulfonamides; Z88.8 Allergy status to other drugs, medicaments and biological substances; Z90.49 Acquired absence of other specified parts of digestive tract; Z80.3 Family history of malignant neoplasm of breast; Z68.42 Body mass index [BMI] 45.0-49.9, adult
CPT/HCPCS: 36415; 80053; 83690; 85025; 81001; 81025; 87086; 76830; 96374; 96375; 99284; J2270; J2405

== ENCOUNTER 2021-03-08 09:02 | Day surgery (SDC) | payer OTHER ==
[2021-03-03 15:22] VITALS: BMI 33.2
[~2021-03-08 09:02] MED LIST changes: +LACTATED RINGERS 1,000 ML IV SCH; -REGADENOSON 0.4 MG/5 ML SYRINGE IV ONE
[2021-03-08 09:56] VITALS: RESP 16; TEMP 95
[2021-03-08 10:11] LABS: Glucose,Whole Blood 222 mg/dL (75-99)
[2021-03-08] MEDS ORDERED: PROPOFOL 10 MG/ML 20 ML VIAL IV ONE (10:55)
[2021-03-08] MEDS ORDERED: LIDOCAINE 1% INJ 10MG/ML (20 ML MDV) ONE (10:55)
--- NOTE | 2021-03-08 10:57 | P.GSHP ---
History of Present Illness H&P Date: 03/08/21 Chief Complaint: Epigastric pain. Is a 45-year-old female who presents today for EGD. Patient's echo with epigastric pain. She'll undergo EGD today. She was initially scheduled for colonoscopy as well. However the patient did not tolerate bowel prep. 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 Date of last positivie culture/infection: 07/04/01 MDRO Source:: gallbladder Past Surgical History: Cholecystectomy, Hernia Repair Additional Past Surgical History / Comment(s): CATARACT SURGERY, kidney stents ; Colonoscopies, ventral hernia 08/02/17, Past Anesthesia/Blood Transfusion Reactions: No Reported Reaction Past Psychological History: Anxiety Smoking Status: Never smoker Past Alcohol Use History: None Reported Past Drug Use History: None Reported - Past Family History Father Family Medical History: No Reported History Mother Family Medical History: Cancer Additional Family Medical History / Comment(s): breast cancer (ax[place] location) dx at age 45. Maternal aunt dx with breast cancer @50, at age 54 from breast cancer Sister(s) Family Medical History: Cancer Additional Family Medical History / Comment(s): at age 8 from Leukemia, Medications and Allergies Home Medications Medication Instructions Recorded Confirmed Type glipiZIDE [Glucotrol] 10 mg PO BID 11/02/17 03/08/21 History valACYclovir HCL [Valacyclovir] 1,000 mg PO DAILY 11/21/19 03/08/21 History Pioglitazone [Actos] 15 mg PO DAILY 10/13/20 03/08/21 History Sennosides/Docusate Sodium 1 tab PO DAILY 10/13/20 03/08/21 History [Senna-S 8.6-50 mg Tablet] Cyanocobalamin (Vitamin B-12) 2,500 mcg PO BID 02/07/21 03/08/21 History [Vitamin B-12] Multivitamins, Thera [Multivitamin 1 tab PO DAILY 02/07/21 03/08/21 History (formulary)] Pyridoxine HCl (Vitamin B6) 500 mg PO BID 02/07/21 03/08/21 History [Vitamin B-6] ALPRAZolam [Xanax] 0.5 mg PO HS PRN tab 02/10/21 03/08/21 Rx Morphine Sulfate ER [Ms Contin] 15 mg PO BID tablet 02/10/21 03/08/21 Rx hydroCHLOROthiazide [Hydrodiuril] 12.5 mg PO DAILY cap 02/10/21 03/08/21 Rx Dicyclomine [Bentyl] 20 mg PO TID PRN #30 tablet 02/15/21 03/08/21 Rx Famotidine [Pepcid] 20 mg PO DAILY #28 tablet 02/15/21 03/08/21 Rx Metoclopramide [Reglan] 10 mg PO TID PRN #15 tab 02/15/21 03/08/21 Rx Sucralfate [Carafate] 1 gm PO ACHS #56 tablet 02/15/21 03/08/21 Rx oxyCODONE-APAP 10-325MG [Percocet 1 tab PO QID PRN 03/07/21 03/08/21 History 10-325 mg] Allergies Allergy/AdvReac Type Severity Reaction Status Date / Time adhesive tape Allergy Severe Rash/Hives Verified 03/08/21 09:58 cortisone [Cortisone] Allergy Severe Anaphylaxis Verified 03/08/21 09:58 diphenhydramine HCl Allergy Severe Anaphylaxis Verified 03/08/21 09:58 [From Benadryl] Penicillins Allergy Severe Anaphylaxis Verified 03/08/21 09:58 Sulfa (Sulfonamide Allergy Intermediate Rash/Hives Verified 03/08/21 09:58 Antibiotics) Cephalosporins Allergy Mild Rash/Hives Verified 03/08/21 09:58 doxycycline Allergy Mild Rash/Hives Verified 03/08/21 09:58 Quinolones Allergy Mild Rash/Hives Verified 03/08/21 09:58 [place] And Derivatives Allergy Rash/Hives Verified 03/08/21 09:58 [[place]] Iodine and Iodide Containing Allergy Unknown Verified 03/08/21 09:58 Produc nitrofurantoin AdvReac Abdominal Verified 03/08/21 09:58 [From Macrobid] Pain Surgical - Exam Vital Signs Temp Pulse Resp BP Pulse Ox 95.0 F L 93 16 145/72 95 03/08/21 09:55 03/08/21 09:55 03/08/21 09:55 03/08/21 09:55 03/08/21 09:55 - General well developed, well nourished, no distress - Eyes PERRL - ENT normal pinna - Neck no masses - Respiratory normal expansion - Cardiovascular Rhythm: regular - Abdomen Abdomen: soft, non tender Results - Labs Abnormal Lab Results - Last 24 Hours (Table) 03/08/21 Range/Units 10:04 POC Glucose (mg/dL) 222 H (75-99) mg/dL Assessment and Plan Assessment: Epigastric pain. We'll perform EGD.
--- NOTE | 2021-03-08 11:06 | P.OP ---
Date of Procedure: 03/08/21 Preoperative Diagnosis: Epigastric pain Postoperative Diagnosis: Antral gastritis Procedure(s) Performed: EGD Anesthesia: MAC Surgeon: Braden Nye Pathology: other (Antrum) Condition: stable Disposition: PACU Description of Procedure: Patient's placed on the endoscopy table lateral position. She received IV sedation. The gastro-/oropharynx passed in the esophagus into the stomach. Scope then placed through the pylorus. The first and second portion of the duodenum appeared normal. Scope was then brought back the antrum this was mildly inflamed. A biopsies performed. Scope was unretroflexed and remainder the stomach appeared normal. The GE junction was at 40 cm the distal esophagus appeared normal. Proximal esophagusAppearedNormal. Scope was drawn for patient.
[2021-03-08 11:28] VITALS: BP 102/72; PULSE 83
== END 2021-03-08 11:40 | disposition home or self-care (01) ==
LOC: ORWHC2ENDO 09:02
PROVIDERS: ATTEND Surgery
DX: K29.50 Unspecified chronic gastritis without bleeding (principal); E11.9 Type 2 diabetes mellitus without complications; M79.7 Fibromyalgia; I10 Essential (primary) hypertension; G40.909 Epilepsy, unspecified, not intractable, without status epilepticus; Z87.442 Personal history of urinary calculi; Z86.73 Personal history of transient ischemic attack (TIA), and cerebral infarction without residual deficits; Z86.14 Personal history of Methicillin resistant Staphylococcus aureus infection; Z90.49 Acquired absence of other specified parts of digestive tract; Z98.49 Cataract extraction status, unspecified eye; Z98.890 Other specified postprocedural states; Z96.0 Presence of urogenital implants; F41.9 Anxiety disorder, unspecified; Z80.3 Family history of malignant neoplasm of breast; Z80.6 Family history of leukemia; Z79.84 Long term (current) use of oral hypoglycemic drugs; Z79.891 Long term (current) use of opiate analgesic; Z79.899 Other long term (current) drug therapy; Z88.2 Allergy status to sulfonamides; Z88.8 Allergy status to other drugs, medicaments and biological substances; Z91.09 Other allergy status, other than to drugs and biological substances; Z88.0 Allergy status to penicillin
CPT/HCPCS: 81025; 88305; 43239; J2001; J2704

== ENCOUNTER → 2021-05-19 | Outpatient (CLI) | payer OTHER ==
[2021-05-19 15:46] LABS: HCT 44.6 % (37.2-46.3); HGB 14.4 g/dL (12.0-15.0); MCH 29.8 pg (27.0-32.0); MCHC 32.3 g/dL (32.0-37.0); MCV 92.1 fL (80.0-97.0); Mean Platelet Volume 11.3 fL (9.5-12.2); Platelet Count 256 X 10*3/uL (140-440); RBC 4.84 X 10*6/uL (4.10-5.20); RDW 13.2 % (11.5-14.5); WBC 6.59 X 10*3/uL (4.50-10.00)
[2021-05-19 17:16] LABS: African American GFR (CKD) 121.3 (60.0-200.0); Albumin/Globulin Ratio 1.33 (1.60-3.17); Anion Gap 12.4 mmol/L (10.00-18.00); BUN/Creat Ratio 23.43 Ratio (12.00-20.00); Blood Urea Nitrogen 16.4 mg/dL (9.0-27.0); Calcium 9.7 mg/dL (8.7-10.3); Carbon Dioxide 24.6 mmol/L (20.0-27.5); Non-African American GFR(CKD) 104.6 (60.0-200.0); Potassium 4.1 mmol/L (3.5-5.5); Testosterone 8.47 ng/mL (9.01-47.94); Total Bilirubin 0.5 mg/dL (0.30-1.20)
[2021-05-19 19:40] LABS: DHEA Sulfate 9.3 ug/dL (26.0-430.0)
[2021-05-20 02:55] LABS: ACTH 41.4 pg/mL (0.00-45.99)
== END | disposition home or self-care (01) ==
LOC: LABWHC1 09:24
PROVIDERS: ATTEND Family Medicine
DX: I10 Essential (primary) hypertension (principal); E11.9 Type 2 diabetes mellitus without complications; E29.1 Testicular hypofunction; D35.00 Benign neoplasm of unspecified adrenal gland; F41.1 Generalized anxiety disorder
CPT/HCPCS: 36415; 80053; 82024; 82088; 82533; 82627; 83036; 84403; 85027

== ENCOUNTER 2022-02-10 16:07 | Emergency (ER) | payer OTHER ==
[2022-02-10 21:09] VITALS: TEMP 97.9
[2022-02-10] MEDS ORDERED: HYDROmorphone 1 MG/ML 1 ML SYRINGE IM STA (21:16)
[2022-02-10] MEDS ORDERED: ORPHENADRINE 30 MG/ML 2 ML VIAL IM STA (22:00)
--- NOTE | 2022-02-10 22:07 | ED ---
Back Pain [facility] - General Chief Complaint: Back Pain/Injury Stated Complaint: Back pain Time Seen by Provider: 02/10/22 20:54 Source: patient Limitations: no limitations - History of Present Illness Initial Comments: Patient is a 46-year-old female history fibromyalgia presenting with chief complaint of fibromyalgia flare up. Patient states that she is having symptoms of her classic fibromyalgia flareup. She is admitting to "pain all over". Patient has been taking muscle relaxers and Percocet at home which has not alleviated her symptoms. Symptoms started this morning. She denies any numbness, tingling, weakness, chest pain, shortness of breath, abdominal pain, nausea, vomiting, fever, chills, vision or hearing changes, dizziness, palpitations, syncope. - Related Data Home Medications Medication Instructions Recorded Confirmed glipiZIDE [Glucotrol] 10 mg PO BID 11/02/17 02/10/22 valACYclovir HCL [Valacyclovir] 1,000 mg PO DAILY 11/21/19 02/10/22 Sennosides/Docusate Sodium 1 tab PO DAILY 10/13/20 02/10/22 [Senna-S 8.6-50 mg Tablet] oxyCODONE-APAP 10-325MG [Percocet 1 tab PO 5XD 03/07/21 02/10/22 10-325 mg] Baclofen 10 mg PO BID PRN 02/10/22 02/10/22 Dulaglutide [Trulicity] 0.75 mg SQ MO 02/10/22 02/10/22 Morphine Sulfate ER [Ms Contin] 15 mg PO DAILY 02/10/22 02/10/22 Pioglitazone [Actos] 30 mg PO DAILY 02/10/22 02/10/22 Potassium Chloride ER [K-Dur 10] 10 meq PO DAILY 02/10/22 02/10/22 Rosuvastatin [Crestor] 10 mg PO DAILY 02/10/22 02/10/22 lisinopriL [Zestril] 5 mg PO DAILY 02/10/22 02/10/22 Allergies Allergy/AdvReac Type Severity Reaction Status Date / Time adhesive tape Allergy Severe Rash/Hives Verified 02/10/22 22:08 cortisone [Cortisone] Allergy Severe Anaphylaxis Verified 02/10/22 22:08 diphenhydramine HCl Allergy Severe Anaphylaxis Verified 02/10/22 22:08 [From Benadryl] Penicillins Allergy Severe Anaphylaxis Verified 02/10/22 22:08 Sulfa (Sulfonamide Allergy Intermediate Rash/Hives Verified 02/10/22 22:08 Antibiotics) Cephalosporins Allergy Mild Rash/Hives Verified 02/10/22 22:08 doxycycline Allergy Mild Rash/Hives Verified 02/10/22 22:08 Quinolones Allergy Mild Rash/Hives Verified 02/10/22 22:08 [place] And Derivatives Allergy Rash/Hives Verified 02/10/22 22:08 [[place]] Iodine and Iodide Containing Allergy Unknown Verified 02/10/22 22:08 Produc nitrofurantoin AdvReac Abdominal Verified 02/10/22 22:08 [From Macrobid] Pain Review of Systems ROS Statement: Those systems with pertinent positive or pertinent negative responses have been documented in the HPI. ROS Other: All systems not noted in ROS Statement are negative. 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 pain, frequent nausea History of Any Multi-Drug Resistant Organisms: MRSA Date of last positivie culture/infection: 07/04/01 MDRO Source:: gallbladder Past Surgical History: Cholecystectomy, Hernia Repair Additional Past Surgical History / Comment(s): CATARACT SURGERY, kidney stents ; Colonoscopies, ventral hernia 08/02/17, recent EGD Past Anesthesia/Blood Transfusion Reactions: No Reported Reaction Past Psychological History: Anxiety Smoking Status: Never smoker - Past Family History Father Family Medical History: No Reported History Mother Family Medical History: Cancer Additional Family Medical History / Comment(s): breast cancer ([place] location) dx at age 45. Maternal aunt dx with breast cancer @50, at age 54 from breast cancer Sister(s) Family Medical History: Cancer Additional Family Medical History / Comment(s): at age 8 from Leukemia, General Exam Limitations: no limitations General appearance: alert, in no apparent distress Head exam: Present: atraumatic, normocephalic, normal inspection Eye exam: Present: normal appearance, PERRL, EOMI. Absent: scleral icterus, conjunctival injection, periorbital swelling Neck exam: Present: normal inspection Respiratory exam: Present: normal lung sounds bilaterally. Absent: respiratory distress, wheezes, rales, rhonchi, stridor Cardiovascular Exam: Present: regular rate, normal rhythm, normal heart sounds. Absent: systolic murmur, diastolic murmur, rubs, gallop, clicks Back exam: Present: muscle spasm, paraspinal tenderness. Absent: vertebral tenderness Neurological exam: Present: alert, oriented X3, CN II-XII intact Psychiatric exam: Present: normal affect, normal mood Skin exam: Present: warm, dry, intact, normal color. Absent: rash Course Vital Signs 02/10/22 02/10/22 02/10/22 16:38 21:06 23:00 Temperature 97.8 F 97.9 F Pulse Rate 86 94 91 Respiratory 16 18 16 Rate Blood Pressure 147/85 147/107 138/75 O2 Sat by Pulse 100 97 98 Oximetry Medical Decision Making - Medical Decision Making Patient is a 46-year-old female presenting with chief complaint of "fibromyalgia flareup". Patient admits to pain all over her body, states that this is consistent with her classic fibromyalgia flareup. On examination her lungs are clear to auscultation, patient admits to muscle tightness throughout her body. She is given Dilaudid and Norflex, she reports improvement in pain, particularly after Norflex administration. Patient appears stable for discharge with outpatient follow-up at this time. Follow-up with PCP. Report back to ER with any new or worsening symptoms. Discussed return parameters and answered all questions. Patient conveyed verbal understanding and agreed to the plan. I discussed this case in detail with my attending Dr. Ponce. Disposition Clinical Impression: Fibromyalgia Disposition: HOME SELF-CARE Condition: Good Instructions (If sedation given, give patient instructions): Fibromyalgia (ED) Additional Instructions: Follow-up with PCP. Report back to ER with any new or worsening symptoms. Is patient prescribed a controlled substance at d/c from ED?: No Referrals: Marleny Farrell DO [Primary Care Provider] - 1-2 days Time of Disposition: 22:41
[2022-02-10 23:03] VITALS: BP 138/75; PULSE 91; RESP 16
== END 2022-02-10 23:05 | disposition home or self-care (01) ==
LOC: EC 16:07
DX: M79.7 Fibromyalgia (principal); E11.9 Type 2 diabetes mellitus without complications; I10 Essential (primary) hypertension; Z90.49 Acquired absence of other specified parts of digestive tract; Z86.73 Personal history of transient ischemic attack (TIA), and cerebral infarction without residual deficits; Z88.8 Allergy status to other drugs, medicaments and biological substances; Z88.1 Allergy status to other antibiotic agents; Z91.041 Radiographic dye allergy status; Z88.2 Allergy status to sulfonamides; Z88.0 Allergy status to penicillin; Z91.048 Other nonmedicinal substance allergy status; Z79.899 Other long term (current) drug therapy; Z79.84 Long term (current) use of oral hypoglycemic drugs
CPT/HCPCS: 99283; 96372; J2360; J1170

== ENCOUNTER 2022-04-19 16:56 | Emergency (ER) | payer OTHER ==
[2022-04-19 17:34] VITALS: RESP 16
[2022-04-19] MEDS ORDERED: CLINDAMYCIN 150 MG/ML 4 ML VIAL IM STA (19:02)
[2022-04-19] MEDS ORDERED: CLINDAMYCIN 150 MG CAP PO STA (19:03)
--- NOTE | 2022-04-19 19:18 | ED ---
General Adult HPI - General Chief complaint: Burn/Smoke Inhalation Stated complaint: Leg Infection Time Seen by Provider: 04/19/22 18:53 Source: patient, RN notes reviewed Limitations: no limitations - History of Present Illness Initial comments: Patient presents with a burn to her left calf area which been present for 3 days. Patient states she was using a heating pad and left on too long. She sustained a burn. Patient had a blister to the area which Burse. Now she has some redness around the area. Patient concerned about infectious process. Patient is diabetic. Patient has a history of MRSA. No headache, no fever or chills, no changes in vision or hearing, no sore throat or difficulty with speech, no neck pain, no chest pain or shortness of breath, no abdominal pain, no nausea or vomiting, no changes in urination or bowel movements, no numbness or tingling, no extremity pain, no skin rashes or lesions. Past medical, surgical, social, and family history reviewed. Note the patient previously has had issues with sepsis - Related Data Home Medications Medication Instructions Recorded Confirmed glipiZIDE [Glucotrol] 10 mg PO BID 11/02/17 02/10/22 valACYclovir HCL [Valacyclovir] 1,000 mg PO DAILY 11/21/19 02/10/22 Sennosides/Docusate Sodium 1 tab PO DAILY 10/13/20 02/10/22 [Senna-S 8.6-50 mg Tablet] oxyCODONE-APAP 10-325MG [Percocet 1 tab PO 5XD 03/07/21 02/10/22 10-325 mg] Baclofen 10 mg PO BID PRN 02/10/22 02/10/22 Dulaglutide [Trulicity] 0.75 mg SQ MO 02/10/22 02/10/22 Morphine Sulfate ER [Ms Contin] 15 mg PO DAILY 02/10/22 02/10/22 Pioglitazone [Actos] 30 mg PO DAILY 02/10/22 02/10/22 Potassium Chloride ER [K-Dur 10] 10 meq PO DAILY 02/10/22 02/10/22 Rosuvastatin [Crestor] 10 mg PO DAILY 02/10/22 02/10/22 lisinopriL [Zestril] 5 mg PO DAILY 02/10/22 02/10/22 Previous Rx's Medication Instructions Recorded Clindamycin [Cleocin] 300 mg PO Q8H #90 capsule 04/19/22 Allergies Allergy/AdvReac Type Severity Reaction Status Date / Time adhesive tape Allergy Severe Rash/Hives Verified 02/10/22 22:08 cortisone [Cortisone] Allergy Severe Anaphylaxis Verified 02/10/22 22:08 diphenhydramine HCl Allergy Severe Anaphylaxis Verified 02/10/22 22:08 [From Benadryl] Penicillins Allergy Severe Anaphylaxis Verified 02/10/22 22:08 Sulfa (Sulfonamide Allergy Intermediate Rash/Hives Verified 02/10/22 22:08 Antibiotics) Cephalosporins Allergy Mild Rash/Hives Verified 02/10/22 22:08 doxycycline Allergy Mild Rash/Hives Verified 02/10/22 22:08 Quinolones Allergy Mild Rash/Hives Verified 02/10/22 22:08 [place] And Derivatives Allergy Rash/Hives Verified 02/10/22 22:08 [[place]] Iodine and Iodide Containing Allergy Unknown Verified 02/10/22 22:08 Produc nitrofurantoin AdvReac Abdominal Verified 02/10/22 22:08 [From Macrobid] Pain Review of Systems ROS Statement: Those systems with pertinent positive or pertinent negative responses have been documented in the HPI. ROS Other: All systems not noted in ROS Statement are negative. 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 pain, frequent nausea History of Any Multi-Drug Resistant Organisms: MRSA Date of last positivie culture/infection: 07/04/01 MDRO Source:: gallbladder Past Surgical History: Cholecystectomy, Hernia Repair Additional Past Surgical History / Comment(s): CATARACT SURGERY, kidney stents ; Colonoscopies, ventral hernia 08/02/17, recent EGD Past Anesthesia/Blood Transfusion Reactions: No Reported Reaction Past Psychological History: Anxiety Smoking Status: Never smoker - Past Family History Father Family Medical History: No Reported History Mother Family Medical History: Cancer Additional Family Medical History / Comment(s): breast cancer (axilla location) dx at age 45. Maternal aunt dx with breast cancer @50, at age 54 from breast cancer Sister(s) Family Medical History: Cancer Additional Family Medical History / Comment(s): at age 8 from Leukemia, General Exam - General Exam Comments Initial Comments: Patient does not appear to be ill or toxic, vital signs reviewed, patient a bit hypertensive. Otherwise vitals are normal. Capillary refill less than 2 seconds. No mottling. Limitations: no limitations General appearance: obese Head exam: Present: atraumatic, normocephalic, normal inspection Eye exam: Present: normal appearance, PERRL, EOMI. Absent: scleral icterus, conjunctival injection, periorbital swelling ENT exam: Present: normal exam, mucous membranes moist Neck exam: Present: normal inspection, full ROM. Absent: tenderness, meningismus, lymphadenopathy Respiratory exam: Present: normal lung sounds bilaterally. Absent: respiratory distress, wheezes, rales, rhonchi, stridor Cardiovascular Exam: Present: regular rate, normal rhythm, normal heart sounds. Absent: systolic murmur, diastolic murmur, rubs, gallop, clicks GI/Abdominal exam: Present: soft, normal bowel sounds. Absent: distended, tenderness, guarding, rebound, rigid Extremities exam: Present: normal inspection, full ROM, normal capillary refill. Absent: tenderness, pedal edema, joint swelling, calf tenderness Back exam: Present: normal inspection Neurological exam: Present: alert, oriented X3, CN II-XII intact Psychiatric exam: Present: normal affect, normal mood Skin exam: Present: warm, dry, intact, normal color, erythema (Patient has a erythematous area to the medial aspect of left calf surrounding a eschar which is about 1 cm in width and 2 setters in length. No current discharge. Erythema is approximately 3 cm in diameter. No lymphangitis. Distal pulses intact. Capillary refill less than 2 seconds.). Absent: rash, cyanosis, diaphoretic, urticaria, vesicles, petechiae, pallor, mottled, abrasion Course Vital Signs 04/19/22 17:30 Temperature 97.7 F Pulse Rate 95 Respiratory 16 Rate Blood Pressure 151/86 O2 Sat by Pulse 99 Oximetry Medical Decision Making - Medical Decision Making Patient has limited cellulitis secondary to a thermal burn on her left calf. We'll treat with clindamycin, 600 mg IM here. 450 mg and then a prescription for 10 days. Patient counseled on other conservative therapy such as elevation, warm compresses, and return parameters. Patient to see her regular physician within 48 hours or return here for reevaluation anytime. Patient was told to return to the ER for any signs or symptoms worsen. Told to return immediately if any other problems arise. All questions answered. Treatment plan discussed. Patient in agreement Every effort has been made to ensure accuracy of this dictation. However, due to the limitations of electronic medical records and dictation devices, errors in charting still occur. The case was discussed in detail with ED attending physician. Presentation, findings, treatment plan discussed in detail. Supervising Dr. Hernandez Disposition Clinical Impression: Cellulitis of left leg without foot Disposition: HOME SELF-CARE Condition: Good Instructions (If sedation given, give patient instructions): Cellulitis (ED) Additional Instructions: Elevate the affected leg whenever possible, apply warm compresses 10-15 minutes at a time 4 times daily. The antibiotics as directed. Take an additional dose of clindamycin around 4 or 5 AM then roller picker the prescription tomorrow. Follow- up with your regular physician within 48 hours for recheck. If he can't get in there return to the ER for recheck at any time if symptoms worsen or if any other problems arise. Is patient prescribed a controlled substance at d/c from ED?: No Referrals: Marleny Farrell DO [Primary Care Provider] - 1-2 days Time of Disposition: 19:31
[2022-04-19] MEDS ORDERED: CLINDAMYCIN 150 MG/ML 4 ML VIAL IM ONE (19:25)
[2022-04-19 19:46] VITALS: BP 127/88; PULSE 98; TEMP 98.5
== END 2022-04-19 20:17 | disposition home or self-care (01) ==
LOC: EC 16:56
DX: L03.116 Cellulitis of left lower limb (principal); F41.9 Anxiety disorder, unspecified; E11.9 Type 2 diabetes mellitus without complications; I10 Essential (primary) hypertension; Z88.8 Allergy status to other drugs, medicaments and biological substances; Z88.0 Allergy status to penicillin; Z88.2 Allergy status to sulfonamides; Z88.1 Allergy status to other antibiotic agents; Z91.018 Allergy to other foods; Z91.041 Radiographic dye allergy status; Z79.891 Long term (current) use of opiate analgesic
CPT/HCPCS: 96372; 99283

== ENCOUNTER 2022-04-20 16:51 | Emergency (ER) | payer OTHER ==
[2022-04-20 17:52] VITALS: RESP 18; TEMP 98
[2022-04-20] MEDS ORDERED: SODIUM CHLORIDE 0.9% 1,000 ML IV STA (21:13)
[2022-04-20 22:20] LABS: Basophils % (A) 0 %; Eosinophils % (A) 1 %; HCT 43.3 % (34.0-46.0); HGB 12.6 gm/dL (11.4-16.0); Lymphocytes # (A) 0.4 k/uL (1.0-4.8); Lymphocytes % (A) 7 %; MCH 26.5 pg (25.0-35.0); MCHC 29.1 g/dL (31.0-37.0); Mean Platelet Volume 9.5; Monocytes # (A) 0.5 k/uL (0-1.0); Monocytes % (A) 9 %; Neutrophils # (A) 4.5 k/uL (1.3-7.7); Neutrophils % (A) 81 %; Platelet Count 206 k/uL (150-450); RBC 4.76 m/uL (3.80-5.40); RDW 13.1 % (11.5-15.5); WBC 5.6 k/uL (3.8-10.6)
[2022-04-20 22:35] LABS: Partial Thromboplastin Time 25.2 sec (22.0-30.0); Prothrombin Time 10.1 sec (9.0-12.0)
--- NOTE | 2022-04-20 23:19 | XR ---
EXAMINATION TYPE: XR chest 2V DATE OF EXAM: 04/20/2022 COMPARISON: 11/28/2020 HISTORY: Short of breath TECHNIQUE: 2 views FINDINGS: Heart and mediastinum are normal. Lungs are clear. Diaphragm is normal. Bony thorax is inta ct. IMPRESSION: Normal chest. There is clearing of the mild pulmonary interstitial edema compared to old exam.
[2022-04-20] MEDS ORDERED: OSELTAMIVIR 75 MG CAP PO STA (23:35)
[2022-04-20 23:37] LABS: INR 0.9 (<1.2)
--- NOTE | 2022-04-20 23:37 | ED ---
Allergic Reaction HPI - General Chief complaint: Allergic Reaction Stated complaint: sob - reaction to rx Time Seen by Provider: 04/20/22 21:00 Source: patient Mode of arrival: wheelchair Limitations: no limitations - Related Data Home Medications Medication Instructions Recorded Confirmed glipiZIDE [Glucotrol] 10 mg PO BID 11/02/17 02/10/22 valACYclovir HCL [Valacyclovir] 1,000 mg PO DAILY 11/21/19 02/10/22 Sennosides/Docusate Sodium 1 tab PO DAILY 10/13/20 02/10/22 [Senna-S 8.6-50 mg Tablet] oxyCODONE-APAP 10-325MG [Percocet 1 tab PO 5XD 03/07/21 02/10/22 10-325 mg] Baclofen 10 mg PO BID PRN 02/10/22 02/10/22 Dulaglutide [Trulicity] 0.75 mg SQ MO 02/10/22 02/10/22 Morphine Sulfate ER [Ms Contin] 15 mg PO DAILY 02/10/22 02/10/22 Pioglitazone [Actos] 30 mg PO DAILY 02/10/22 02/10/22 Potassium Chloride ER [K-Dur 10] 10 meq PO DAILY 02/10/22 02/10/22 Rosuvastatin [Crestor] 10 mg PO DAILY 02/10/22 02/10/22 lisinopriL [Zestril] 5 mg PO DAILY 02/10/22 02/10/22 Previous Rx's Medication Instructions Recorded Clindamycin [Cleocin] 300 mg PO Q8H #90 capsule 04/19/22 Oseltamivir [Tamiflu] 75 mg PO Q12HR #10 cap 04/20/22 Allergies Allergy/AdvReac Type Severity Reaction Status Date / Time adhesive tape Allergy Severe Rash/Hives Verified 04/20/22 17:52 cortisone [Cortisone] Allergy Severe Anaphylaxis Verified 04/20/22 17:52 diphenhydramine HCl Allergy Severe Anaphylaxis Verified 04/20/22 17:52 [From Benadryl] Penicillins Allergy Severe Anaphylaxis Verified 04/20/22 17:52 Sulfa (Sulfonamide Allergy Intermediate Rash/Hives Verified 04/20/22 17:52 Antibiotics) Cephalosporins Allergy Mild Rash/Hives Verified 04/20/22 17:52 doxycycline Allergy Mild Rash/Hives Verified 04/20/22 17:52 Quinolones Allergy Mild Rash/Hives Verified 04/20/22 17:52 [place] And Derivatives Allergy Rash/Hives Verified 04/20/22 17:52 [[place]] Iodine and Iodide Containing Allergy Unknown Verified 04/20/22 17:52 Produc nitrofurantoin AdvReac Abdominal Verified 04/20/22 17:52 [From Macrobid] Pain Review of Systems ROS Statement: Those systems with pertinent positive or pertinent negative responses have been documented in the HPI. ROS Other: All systems not noted in ROS Statement are negative. 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 pain, frequent nausea History of Any Multi-Drug Resistant Organisms: MRSA Date of last positivie culture/infection: 07/04/01 MDRO Source:: gallbladder Past Surgical History: Cholecystectomy, Hernia Repair Additional Past Surgical History / Comment(s): CATARACT SURGERY, kidney stents ; Colonoscopies, ventral hernia 08/02/17, recent EGD Past Anesthesia/Blood Transfusion Reactions: No Reported Reaction Past Psychological History: Anxiety Smoking Status: Never smoker Past Alcohol Use History: None Reported Past Drug Use History: None Reported - Past Family History Father Family Medical History: No Reported History Mother Family Medical History: Cancer Additional Family Medical History / Comment(s): breast cancer (axilla location) dx at age 45. Maternal aunt dx with breast cancer @50, at age 54 from breast cancer Sister(s) Family Medical History: Cancer Additional Family Medical History / Comment(s): at age 8 from Leukemia, General Exam Limitations: no limitations Course Vital Signs 04/20/22 17:49 Temperature 98 F Pulse Rate 102 H Respiratory 18 Rate Blood Pressure 132/79 O2 Sat by Pulse 100 Oximetry Medical Decision Making - Lab Data Result diagrams: 04/20/22 21:59 Lab Results 04/20/22 04/20/22 04/20/22 Range/Units 21:59 21:59 21:59 WBC 5.6 (3.8-10.6) k/uL RBC 4.76 (3.80-5.40) m/uL Hgb 12.6 (11.4-16.0) gm/dL Hct 43.3 (34.0-46.0) % MCV 91.0 (80.0-100.0) fL MCH 26.5 (25.0-35.0) pg MCHC 29.1 L (31.0-37.0) g/dL RDW 13.1 (11.5-15.5) % Plt Count 206 (150-450) k/uL MPV 9.5 Neutrophils % 81 % Lymphocytes % 7 % Monocytes % 9 % Eosinophils % 1 % Basophils % 0 % Neutrophils # 4.5 (1.3-7.7) k/uL Lymphocytes # 0.4 L (1.0-4.8) k/uL Monocytes # 0.5 (0-1.0) k/uL Eosinophils # 0.0 (0-0.7) k/uL Basophils # 0.0 (0-0.2) k/uL Troponin I (0.000-0.034) ng/mL Coronavirus (PCR) Not Detected (Not Detectd) Influenza Type A RNA Detected H (Not Detectd) Influenza Type B (PCR) Not Detected (Not Detectd) 04/20/22 Range/Units 21:59 WBC (3.8-10.6) k/uL RBC (3.80-5.40) m/uL Hgb (11.4-16.0) gm/dL Hct (34.0-46.0) % MCV (80.0-100.0) fL MCH (25.0-35.0) pg MCHC (31.0-37.0) g/dL RDW (11.5-15.5) % Plt Count (150-450) k/uL MPV Neutrophils % % Lymphocytes % % Monocytes % % Eosinophils % % Basophils % % Neutrophils # (1.3-7.7) k/uL Lymphocytes # (1.0-4.8) k/uL Monocytes # (0-1.0) k/uL Eosinophils # (0-0.7) k/uL Basophils # (0-0.2) k/uL Troponin I <0.012 (0.000-0.034) ng/mL Coronavirus (PCR) (Not Detectd) Influenza Type A RNA (Not Detectd) Influenza Type B (PCR) (Not Detectd) Disposition Clinical Impression: Influenza, Shortness of breath, Chest pressure Disposition: HOME SELF-CARE Condition: Good Instructions (If sedation given, give patient instructions): Influenza (ED) Additional Instructions: Take medication as directed. Follow-up with primary care provider in one to 2 days. Return to emergency department experience new, concerning, or worsening symptoms. Prescriptions: Oseltamivir [Tamiflu] 75 mg PO Q12HR #10 cap Is patient prescribed a controlled substance at d/c from ED?: No Referrals: Marleny Farrell DO [Primary Care Provider] - 1-2 days
[2022-04-21 01:10] VITALS: BP 130/65; PULSE 80
[2022-04-21 01:36] LABS: ALT 34 U/L (4-34); AST 31 U/L (14-36); African American GFR (CKD) >90 (>60 ml/min/1.73 sqM); Albumin 3.7 g/dL (3.5-5.0); Alkaline Phosphatase 69 U/L (38-126); Anion Gap 6 mmol/L; Blood Urea Nitrogen 18 mg/dL (7-17); Carbon Dioxide 25 mmol/L (22-30); Chloride 104 mmol/L (98-107); Glucose 171 mg/dL (74-99); Non-African American GFR(CKD) >90 (>60 ml/min/1.73 sqM); Sodium 135 mmol/L (137-145); Total Bilirubin 0.4 mg/dL (0.2-1.3)
== END 2022-04-21 01:11 | disposition home or self-care (01) ==
LOC: EC 16:51
DX: J10.1 Influenza due to other identified influenza virus with other respiratory manifestations (principal); R06.02 Shortness of breath; R07.89 Other chest pain; Z86.73 Personal history of transient ischemic attack (TIA), and cerebral infarction without residual deficits; E11.9 Type 2 diabetes mellitus without complications; I10 Essential (primary) hypertension; G40.909 Epilepsy, unspecified, not intractable, without status epilepticus; F41.9 Anxiety disorder, unspecified; Z88.8 Allergy status to other drugs, medicaments and biological substances; Z88.2 Allergy status to sulfonamides; Z88.0 Allergy status to penicillin; Z91.041 Radiographic dye allergy status; Z79.899 Other long term (current) drug therapy; Z20.822 Contact with and (suspected) exposure to COVID-19
CPT/HCPCS: 36415; 71046; 80053; 84484; 85025; 85379; 85610; 85730; 87502; 87635; 93005; 96360; 96361; 99285

== ENCOUNTER 2022-07-28 11:07 | Inpatient (IN) | payer OTHER ==
[2022-07-28] MEDS ORDERED: ONDANSETRON 4 MG/2 ML VIAL IVP STA (11:57)
[2022-07-28] MEDS ORDERED: SODIUM CHLORIDE 0.9% 1,000 ML IV STA (11:57)
--- NOTE | 2022-07-28 13:21 | ED ---
General Adult HPI - General Chief complaint: Urogenital Stated complaint: Bladder Infection Time Seen by Provider: 07/28/22 11:31 Source: patient, RN notes reviewed Mode of arrival: ambulatory Limitations: no limitations - History of Present Illness Initial comments: 46-year-old female presents emergency Department chief complaint of possible UTI, flank pain. Patient states she's had issues with UTIs in the past which she has multiple ALLERGIES to oral antibiotics. States she's been hospitalized because these. She reports bilateral flank pain not worse right versus left denies any fever she doesn't to some nausea. Patient states she went to her PCP who placed her on some Zofran for her nausea did not give her any oral antibiotics. - Related Data Home Medications Medication Instructions Recorded Confirmed glipiZIDE [Glucotrol] 10 mg PO BID 11/02/17 02/10/22 valACYclovir HCL [Valacyclovir] 1,000 mg PO DAILY 11/21/19 02/10/22 Sennosides/Docusate Sodium 1 tab PO DAILY 10/13/20 02/10/22 [Senna-S 8.6-50 mg Tablet] oxyCODONE-APAP 10-325MG [Percocet 1 tab PO 5XD 03/07/21 02/10/22 10-325 mg] Baclofen 10 mg PO BID PRN 02/10/22 02/10/22 Dulaglutide [Trulicity] 0.75 mg SQ MO 02/10/22 02/10/22 Morphine Sulfate ER [Ms Contin] 15 mg PO DAILY 02/10/22 02/10/22 Pioglitazone [Actos] 30 mg PO DAILY 02/10/22 02/10/22 Potassium Chloride ER [K-Dur 10] 10 meq PO DAILY 02/10/22 02/10/22 Rosuvastatin [Crestor] 10 mg PO DAILY 02/10/22 02/10/22 lisinopriL [Zestril] 5 mg PO DAILY 02/10/22 02/10/22 Previous Rx's Medication Instructions Recorded Clindamycin [Cleocin] 300 mg PO Q8H #90 capsule 04/19/22 Oseltamivir [Tamiflu] 75 mg PO Q12HR #10 cap 04/20/22 Allergies Allergy/AdvReac Type Severity Reaction Status Date / Time adhesive tape Allergy Severe Rash/Hives Verified 07/28/22 11:28 cortisone [Cortisone] Allergy Severe Anaphylaxis Verified 07/28/22 11:28 diphenhydramine HCl Allergy Severe Anaphylaxis Verified 07/28/22 11:28 [From Benadryl] Penicillins Allergy Severe Anaphylaxis Verified 07/28/22 11:28 Sulfa (Sulfonamide Allergy Intermediate Rash/Hives Verified 07/28/22 11:28 Antibiotics) Cephalosporins Allergy Mild Rash/Hives Verified 07/28/22 11:28 doxycycline Allergy Mild Rash/Hives Verified 07/28/22 11:28 Quinolones Allergy Mild Rash/Hives Verified 07/28/22 11:28 [place] And Derivatives Allergy Rash/Hives Verified 07/28/22 11:28 [[place]] Iodine and Iodide Containing Allergy Unknown Verified 07/28/22 11:28 Produc nitrofurantoin AdvReac Abdominal Verified 07/28/22 11:28 [From Macrobid] Pain Review of Systems ROS Statement: Those systems with pertinent positive or pertinent negative responses have been documented in the HPI. ROS Other: All systems not noted in ROS Statement are negative. 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 pain, frequent nausea History of Any Multi-Drug Resistant Organisms: MRSA Date of last positivie culture/infection: 07/04/01 MDRO Source:: gallbladder Past Surgical History: Cholecystectomy, Hernia Repair Additional Past Surgical History / Comment(s): CATARACT SURGERY, kidney stents ; Colonoscopies, ventral hernia 08/02/17, recent EGD Past Anesthesia/Blood Transfusion Reactions: No Reported Reaction Past Psychological History: Anxiety Smoking Status: Never smoker Past Alcohol Use History: None Reported Past Drug Use History: None Reported - Past Family History Father Family Medical History: No Reported History Mother Family Medical History: Cancer Additional Family Medical History / Comment(s): breast cancer (axilla location) dx at age 45. Maternal aunt dx with breast cancer @50, at age 54 from breast cancer Sister(s) Family Medical History: Cancer Additional Family Medical History / Comment(s): at age 8 from Leukemia, General Exam Limitations: no limitations General appearance: alert, in no apparent distress Head exam: Present: atraumatic, normocephalic, normal inspection Eye exam: Present: normal appearance, PERRL, EOMI. Absent: scleral icterus, conjunctival injection, periorbital swelling ENT exam: Present: normal exam, normal oropharynx, mucous membranes moist Neck exam: Present: normal inspection, full ROM. Absent: tenderness, meningismus, lymphadenopathy Respiratory exam: Present: normal lung sounds bilaterally. Absent: respiratory distress, wheezes, rales, rhonchi, stridor Cardiovascular Exam: Present: regular rate, normal rhythm, normal heart sounds. Absent: systolic murmur, diastolic murmur, rubs, gallop, clicks GI/Abdominal exam: Present: soft, tenderness, normal bowel sounds. Absent: distended, guarding, rebound, rigid Back exam: Present: CVA tenderness (R), CVA tenderness (L) Neurological exam: Present: alert, oriented X3 Course Vital Signs 07/28/22 07/28/22 11:25 13:23 Temperature 97.8 F Pulse Rate 97 90 Respiratory 18 18 Rate Blood Pressure 127/83 123/79 O2 Sat by Pulse 100 99 Oximetry Medical Decision Making - Medical Decision Making Was pt. sent in by a medical professional or institution (, PA, POTATO BUCKER, urgent care, hospital, or retirement...) When possible be specific @ -PCP Did you speak to anyone other than the patient for history (EMS, parent, family, police, friend...)? What history was obtained from this source @ -No Did you review nursing and triage notes (agree or disagree)? Why? @ -I reviewed and agree with nursing and triage notes Were old charts reviewed (outside hosp., previous admission, EMS record, old EKG, old radiological studies, urgent care reports/EKG's, retirement records)? Report findings @ -Review prior laboratory studies, imaging and urinary cultures Differential Diagnosis (chest pain, altered mental status, abdominal pain women, abdominal pain men, vaginal bleeding, weakness, fever, dyspnea, syncope, headache, dizziness, GI bleed, back pain, seizure, CVA, palpatations, mental health, musculoskeletal)? @ -Differential Abdominal Pain Women: Appendicitis, Cholecystitis, diverticulosis, ischemic bowel, pancreatitis, hepatitis, UTI, gastroenteritis, AAA, incarcerated hernia, bowel obstruction, constipation, inflammatory bowel, hepatitis, peptic ulcer disease, splenic infarction, perforated viscus, vulvitis, ovarian torsion, PID, kidney stone, placenta abruption, this is not meant to be an all-inclusive list EKG interpreted by me (3pts min.). @ -None X-rays interpreted by me (1pt min.). @ -None done CT interpreted by me (1pt min.). @ -None done U/S interpreted by me (1pt. min.). @ -None done What testing was considered but not performed or refused? (CT, X-rays, U/S, labs)? Why? @ -None What meds were considered but not given or refused? Why? @ -None Did you discuss the management of the patient with other professionals (professionals i.e. , PA, POTATO BUCKER, lab, RT, psych nurse, high school social science teacher, admiralty lawyer, teacher, port patrol officer, keycase assembler)? Give summary @ -No Was smoking cessation discussed for >3mins.? @ -No Was critical care preformed (if so, how long)? @ -No Were there social determinants of health that impacted care today? How? (Homelessness, low income, unemployed, alcoholism, drug addiction, transportation, low edu. Level, literacy, decrease access to med. care, detention, rehab)? @ -No Was there de-escalation of care discussed even if they declined (Discuss DNR or withdrawal of care, Hospice)? DNR status @ -No What co-morbidities impacted this encounter? (DM, HTN, Smoking, COPD, CAD, Cancer, CVA, ARF, Chemo, Hep., AIDS, mental health diagnosis, sleep apnea, morbid obesity)? @ -Recurrent UTIs, diabetes Was patient admitted / discharged? Hospital course, mention meds given and route, prescriptions, significant lab abnormalities, going to OR and other pertinent info. @ -Admitted patient lists all oral antibiotic ALLERGIES. Patient will be admitted for placement of midline and pending cultures for discharge home IV antibiotics Undiagnosed new problem with uncertain prognosis? @ -No Drug Therapy requiring intensive monitoring for toxicity (Heparin, Nitro, Insulin, Cardizem)? @ -No Were any procedures done? @ -No Diagnosis/symptom? @ -[UTI Acute, or Chronic, or Acute on Chronic? @ -Acute Uncomplicated (without systemic symptoms) or Complicated (systemic symptoms)? @ -Uncomplicated Side effects of treatment? @ -No Exacerbation, Progression, or Severe Exacerbation? @ -No Poses a threat to life or bodily function? How? (Chest pain, USA, IA, pneumonia, PE, COPD, DKA, ARF, appy, cholecystitis, CVA, Diverticulitis, Homicidal, Suicidal, threat to staff... and all critical care pts) @ -No - Lab Data Result diagrams: 07/28/22 13:21 07/28/22 13:21 Lab Results 07/28/22 07/28/22 07/28/22 Range/Units 13:21 13:21 13:21 WBC 5.0 (3.8-10.6) k/uL RBC 4.42 (3.80-5.40) m/uL Hgb 13.8 (11.4-16.0) gm/dL Hct 40.9 (34.0-46.0) % MCV 92.5 (80.0-100.0) fL MCH 31.1 (25.0-35.0) pg MCHC 33.6 (31.0-37.0) g/dL RDW 13.5 (11.5-15.5) % Plt Count 204 (150-450) k/uL MPV 8.3 Neutrophils % 74 % Lymphocytes % 16 % Monocytes % 7 % Eosinophils % 1 % Basophils % 0 % Neutrophils # 3.7 (1.3-7.7) k/uL Lymphocytes # 0.8 L (1.0-4.8) k/uL Monocytes # 0.4 (0-1.0) k/uL Eosinophils # 0.0 (0-0.7) k/uL Basophils # 0.0 (0-0.2) k/uL Sodium 140 (137-145) mmol/L Potassium 4.5 (3.5-5.1) mmol/L Chloride 104 (98-107) mmol/L Carbon Dioxide 31 H (22-30) mmol/L Anion Gap 5 mmol/L BUN 21 H (7-17) mg/dL Creatinine 0.82 (0.52-1.04) mg/dL Est GFR (CKD-EPI)AfAm >90 (>60 ml/min/1.73 sqM) Est GFR (CKD-EPI)NonAf 86 (>60 ml/min/1.73 sqM) Glucose 111 H (74-99) mg/dL Plasma Lactic Acid [place] (0.7-2.0) mmol/L Calcium 9.5 (8.4-10.2) mg/dL Total Bilirubin 0.4 (0.2-1.3) mg/dL AST 25 (14-36) U/L ALT 34 (4-34) U/L Alkaline Phosphatase 40 (38-126) U/L Total Protein 6.7 (6.3-8.2) g/dL Albumin 3.8 (3.5-5.0) g/dL Lipase 324 H (23-300) U/L Urine Color Yellow Urine Appearance Cloudy H (Clear) Urine pH 6.0 (5.0-8.0) Ur Specific [place] 1.028 (1.001-1.035) Urine Protein 2+ H (Negative) Urine Glucose (UA) Trace H (Negative) Urine Ketones Trace H (Negative) Urine Blood Negative (Negative) Urine Nitrite Negative (Negative) Urine Bilirubin Negative (Negative) Urine Urobilinogen <2.0 (<2.0) mg/dL Ur Leukocyte Esterase Moderate H (Negative) Urine RBC 6 H (0-5) /hpf Urine WBC 105 H (0-5) /hpf Ur Squamous Epith Cells 2 (0-4) /hpf Urine Bacteria Many H (None) /hpf Hyaline Casts 7 H (0-2) /lpf Urine Mucus Few H (None) /hpf 07/28/22 Range/Units 13:21 WBC (3.8-10.6) k/uL RBC (3.80-5.40) m/uL Hgb (11.4-16.0) gm/dL Hct (34.0-46.0) % MCV (80.0-100.0) fL MCH (25.0-35.0) pg MCHC (31.0-37.0) g/dL RDW (11.5-15.5) % Plt Count (150-450) k/uL MPV Neutrophils % % Lymphocytes % % Monocytes % % Eosinophils % % Basophils % % Neutrophils # (1.3-7.7) k/uL Lymphocytes # (1.0-4.8) k/uL Monocytes # (0-1.0) k/uL Eosinophils # (0-0.7) k/uL Basophils # (0-0.2) k/uL Sodium (137-145) mmol/L Potassium (3.5-5.1) mmol/L Chloride (98-107) mmol/L Carbon Dioxide (22-30) mmol/L Anion Gap mmol/L BUN (7-17) mg/dL Creatinine (0.52-1.04) mg/dL Est GFR (CKD-EPI)AfAm (>60 ml/min/1.73 sqM) Est GFR (CKD-EPI)NonAf (>60 ml/min/1.73 sqM) Glucose (74-99) mg/dL Plasma Lactic Acid [place] 0.9 (0.7-2.0) mmol/L Calcium (8.4-10.2) mg/dL Total Bilirubin (0.2-1.3) mg/dL AST (14-36) U/L ALT (4-34) U/L Alkaline Phosphatase (38-126) U/L Total Protein (6.3-8.2) g/dL Albumin (3.5-5.0) g/dL Lipase (23-300) U/L Urine Color Urine Appearance (Clear) Urine pH (5.0-8.0) Ur Specific [place] (1.001-1.035) Urine Protein (Negative) Urine Glucose (UA) (Negative) Urine Ketones (Negative) Urine Blood (Negative) Urine Nitrite (Negative) Urine Bilirubin (Negative) Urine Urobilinogen (<2.0) mg/dL Ur Leukocyte Esterase (Negative) Urine RBC (0-5) /hpf Urine WBC (0-5) /hpf Ur Squamous Epith Cells (0-4) /hpf Urine Bacteria (None) /hpf Hyaline Casts (0-2) /lpf Urine Mucus (None) /hpf Disposition Clinical Impression: Urinary tract infection, Allergy to multiple antibiotics Disposition: ADMITTED IP TO THIS HOSP Condition: Fair Referrals: Marleny Farrell DO [Primary Care Provider] - 1-2 days Time of Disposition: 15:09
[2022-07-28 13:33] LABS: Basophils % (A) 0 %; Eosinophils % (A) 1 %; HCT 40.9 % (34.0-46.0); HGB 13.8 gm/dL (11.4-16.0); Lymphocytes # (A) 0.8 k/uL (1.0-4.8); Lymphocytes % (A) 16 %; MCH 31.1 pg (25.0-35.0); MCHC 33.6 g/dL (31.0-37.0); MCV 92.5 fL (80.0-100.0); Mean Platelet Volume 8.3; Monocytes # (A) 0.4 k/uL (0-1.0); Monocytes % (A) 7 %; Neutrophils # (A) 3.7 k/uL (1.3-7.7); Neutrophils % (A) 74 %; Platelet Count 204 k/uL (150-450); RBC 4.42 m/uL (3.80-5.40); RDW 13.5 % (11.5-15.5)
[2022-07-28 13:46] LABS: ALT 34 U/L (4-34); AST 25 U/L (14-36); African American GFR (CKD) >90 (>60 ml/min/1.73 sqM); Albumin 3.8 g/dL (3.5-5.0); Alkaline Phosphatase 40 U/L (38-126); Anion Gap 5 mmol/L; Blood Urea Nitrogen 21 mg/dL (7-17); Calcium 9.5 mg/dL (8.4-10.2); Carbon Dioxide 31 mmol/L (22-30); Chloride 104 mmol/L (98-107); Glucose 111 mg/dL (74-99); Lipase 324 U/L (23-300); Non-African American GFR(CKD) 86 (>60 ml/min/1.73 sqM); Potassium 4.5 mmol/L (3.5-5.1); Sodium 140 mmol/L (137-145); Total Bilirubin 0.4 mg/dL (0.2-1.3); Total Protein 6.7 g/dL (6.3-8.2)
[2022-07-28 13:57] LABS: Appearance,Urine Cloudy (Clear); Bacteria,Urine Many /hpf; Bilirubin,Urine Negative (Negative); Blood,Urine Negative (Negative); Color,Urine Yellow; Glucose,Urine (UA) Trace (Negative); Hyaline Casts,Urine 7 /lpf (0-2); Ketones,Urine Trace (Negative); Leukocyte Esterase,Urine Moderate (Negative); Mucus,Urine Few /hpf; Nitrite,Urine Negative (Negative); Protein,Urine 2+ (Negative); RBC,Urine 6 /hpf (0-5); Specific Gravity,Urine 1.028 (1.001-1.035); Squamous Epithelial Cell,Urine 2 /hpf (0-4); Urobilinogen,Urine <2.0 mg/dL (<2.0); WBC,Urine 105 /hpf (0-5)
[2022-07-28] MEDS ORDERED: ACETAMINOPHEN TAB 325 MG TAB PO PRN (15:10)
[2022-07-28] MEDS ORDERED: GENTAMICIN PER PHARMACY MISCELLANE SCH (15:15)
[2022-07-28] MEDS: SODIUM CHLORIDE 0.9% 1,000 ML IV SCH (16:24)
[2022-07-28] MEDS ORDERED: GENTAMICIN 500 MG in SODIUM CHLORIDE 0.9% 100 ML IVPB SCH (16:30)
[2022-07-28 17:45] LABS: Glucose,Whole Blood 67 mg/dL (70-110)
[2022-07-28 18:13] LABS: Glucose,Whole Blood 85 mg/dL (70-110)
[2022-07-28] MEDS ORDERED: BACLOFEN 10 MG TAB PO PRN (18:35)
[2022-07-28] MEDS: oxyCODONE-APAP 10-325MG 1 EACH TAB PO PRN (20:33)
[2022-07-28 20:36] LABS: Glucose,Whole Blood 125 mg/dL (70-110)
[2022-07-28] MEDS: ONDANSETRON 4 MG/2 ML VIAL IVP PRN (21:01)
[2022-07-28] MEDS: ALPRAZolam 1 MG TAB PO SCH (21:01)
--- NOTE | 2022-07-28 22:18 | P.HPIM ---
History of Present Illness H&P Date: 07/28/22 Chief Complaint: Abdominal discomfort Patient is a 46-year-old female with a known history of hypertension, diabetes type 2, fibromyalgia, history of CVA/TIA, left foot drop, history of seizure disorder, anxiety and prior history of urinary tract infection and multiple antibiotic allergies presents to ER with the complaints of lower abdominal discomfort, nausea, bilateral flank pain and night sweats and hot flashes which is similar to her prior urinary tract infection. Denies any dysuria otherwise. She went to see her primary care physician and was recommended to go to ER. Denies any complaints of chest pain or shortness of breath. No cough or sputum production. No headache or dizziness or lightheadedness. Laboratory test showed sodium 140 potassium 4.5 chloride 104 bicarb is 31 BUN 21 creatinine 0.82 and blood sugar is 111 Loading episode not elevated. Lipase level is 324. Urinalysis showed cloudy with 2+ protein trace ketones, moderate leukocyte esterase with elevated RBCs and WBCs. Squamous epithelial cells 2. Acute urinary tract infection possible pyelonephritis. Multiple antibiotic allergies Prior history of UTIs Elevated lipase level 325 Hypertension Hyperlipidemia Diabetes type 2 [id number] Chronic pain/fibromyalgia Morbid obesity with BMI 45.8 History of seizure disorder History of CVA/TIA Left foot drop Anxiety Prior history of cholecystectomy DVT prophylaxis heparin subcu Plan: Patient will be continued on IV hydration with normal saline. Started on antibiotics of gentamicin follow-up urine culture report. Continue with pain management and home medications and insulin sliding scale. ID will be consulted for further antibiotic recommendations. Continue to follow closely. 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 pain, frequent nausea History of Any Multi-Drug Resistant Organisms: MRSA Date of last positivie culture/infection: 07/04/01 MDRO Source:: gallbladder Past Surgical History: Cholecystectomy, Hernia Repair Additional Past Surgical History / Comment(s): CATARACT SURGERY, kidney stents ; Colonoscopies, ventral hernia 08/02/17, recent EGD Past Anesthesia/Blood Transfusion Reactions: No Reported Reaction Past Psychological History: Anxiety Smoking Status: Never smoker Past Alcohol Use History: None Reported Past Drug Use History: None Reported - Past Family History Father Family Medical History: No Reported History Mother Family Medical History: Cancer Additional Family Medical History / Comment(s): breast cancer (axilla location) dx at age 45. Maternal aunt dx with breast cancer @50, at age 54 from breast cancer Sister(s) Family Medical History: Cancer Additional Family Medical History / Comment(s): at age 8 from Leukemia, Medications and Allergies Home Medications Medication Instructions Recorded Confirmed Type glipiZIDE [Glucotrol] 20 mg PO DAILY 11/02/17 07/28/22 History valACYclovir HCL [Valacyclovir] 1,000 mg PO DAILY 11/21/19 07/28/22 History Sennosides/Docusate Sodium 1 tab PO DAILY 10/13/20 07/28/22 History [Senna-S 8.6-50 mg Tablet] oxyCODONE-APAP 10-325MG [Percocet 1 tab PO 5XD 03/07/21 07/28/22 History 10-325 mg] Baclofen 10 mg PO BID PRN 02/10/22 07/28/22 History Dulaglutide [Trulicity] 0.75 mg SQ MO 02/10/22 07/28/22 History Morphine Sulfate ER [Ms Contin] 15 mg PO DAILY 02/10/22 07/28/22 History Pioglitazone [Actos] 30 mg PO DAILY 02/10/22 07/28/22 History Rosuvastatin [Crestor] 10 mg PO DAILY 02/10/22 07/28/22 History lisinopriL [Zestril] 5 mg PO DAILY 02/10/22 07/28/22 History ALPRAZolam [Xanax] 1 mg PO QID 07/28/22 07/28/22 History Ascorbic Acid [Vitamin C] 2,000 mg PO DAILY 07/28/22 07/28/22 History Cholecalciferol [Vitamin D3 (125 125 mcg PO DAILY 07/28/22 07/28/22 History Mcg = 5000 Iu)] Furosemide [Lasix] 20 mg PO DAILY 07/28/22 07/28/22 History Multivitamins, Thera [Multivitamin 1 tab PO DAILY 07/28/22 07/28/22 History (formulary)] OLANZapine [ZyPREXA] 5 mg PO DAILY 07/28/22 07/28/22 History Phytonadione [Vitamin K] 5 mg PO DAILY 07/28/22 07/28/22 History Potassium Gluconate 99 mg PO DAILY 07/28/22 07/28/22 History Pseudoephedrine 12Hr [Sudafed 12 240 mg PO DAILY 07/28/22 07/28/22 History Hour] hydroCHLOROthiazide 25 mg PO DAILY 07/28/22 07/28/22 History Allergies Allergy/AdvReac Type Severity Reaction Status Date / Time adhesive tape Allergy Severe Rash/Hives Verified 07/28/22 16:03 cortisone [Cortisone] Allergy Severe Anaphylaxis Verified 07/28/22 16:03 diphenhydramine HCl Allergy Severe Anaphylaxis Verified 07/28/22 16:03 [From Benadryl] Penicillins Allergy Severe Anaphylaxis Verified 07/28/22 16:03 Sulfa (Sulfonamide Allergy Intermediate Rash/Hives Verified 07/28/22 16:03 Antibiotics) Cephalosporins Allergy Mild Rash/Hives Verified 07/28/22 16:03 doxycycline Allergy Mild Rash/Hives Verified 07/28/22 16:03 Quinolones Allergy Mild Rash/Hives Verified 07/28/22 16:03 [place] And Derivatives Allergy Rash/Hives Verified 07/28/22 16:03 [[place]] Iodine and Iodide Containing Allergy Unknown Verified 07/28/22 16:03 Produc nitrofurantoin AdvReac Abdominal Verified 07/28/22 16:03 [From Macrobid] Pain Physical Exam Vitals: Vital Signs Temp Pulse Pulse Resp BP BP Pulse Ox 07/28/22 19:02 97.3 F L 92 16 112/75 95 07/28/22 17:43 97.6 F 87 117/81 99 07/28/22 16:29 90 18 128/80 07/28/22 13:23 90 18 123/79 99 07/28/22 11:25 97.8 F 97 18 127/83 100 Intake and Output 07/28/22 07/28/22 07/28/22 06:59 14:59 22:59 Intake Total 240 Balance 240 Intake: Oral 240 Other: Weight 153.314 kg 153.314 kg Results CBC & Chem 7: 07/28/22 13:21 07/28/22 13:21 Labs: Abnormal Lab Results - Last 24 Hours (Table) 07/28/22 07/28/22 07/28/22 Range/Units 13:21 13:21 13:21 Lymphocytes # 0.8 L (1.0-4.8) k/uL Carbon Dioxide 31 H (22-30) mmol/L BUN 21 H (7-17) mg/dL Glucose 111 H (74-99) mg/dL POC Glucose (mg/dL) (70-110) mg/dL Lipase 324 H (23-300) U/L Urine Appearance Cloudy H (Clear) Urine Protein 2+ H (Negative) Urine Glucose (UA) Trace H (Negative) Urine Ketones Trace H (Negative) Ur Leukocyte Esterase Moderate H (Negative) Urine RBC 6 H (0-5) /hpf Urine WBC 105 H (0-5) /hpf Urine Bacteria Many H (None) /hpf Hyaline Casts 7 H (0-2) /lpf Urine Mucus Few H (None) /hpf 07/28/22 07/28/22 Range/Units 17:43 20:35 Lymphocytes # (1.0-4.8) k/uL Carbon Dioxide (22-30) mmol/L BUN (7-17) mg/dL Glucose (74-99) mg/dL POC Glucose (mg/dL) 67 L 125 H (70-110) mg/dL Lipase (23-300) U/L Urine Appearance (Clear) Urine Protein (Negative) Urine Glucose (UA) (Negative) Urine Ketones (Negative) Ur Leukocyte Esterase (Negative) Urine RBC (0-5) /hpf Urine WBC (0-5) /hpf Urine Bacteria (None) /hpf Hyaline Casts (0-2) /lpf Urine Mucus (None) /hpf Microbiology - Last 24 Hours (Table) 07/28/22 13:21 Urine Culture - Preliminary Urine,Voided Thrombosis Risk Factor Assmnt - Choose All That Apply Any of the Below Risk Factors Present?: Yes Each Factor Represents 1 point: Age 41-60 years, Obesity (BMI >25) Other Risk Factors: No Other congenital or acquired thrombophilia - If yes, enter type in comment: No Thrombosis Risk Factor Assessment Total Risk Factor Score: 2 Thrombosis Risk Factor Assessment Level: Low Risk
[2022-07-29] MEDS: oxyCODONE-APAP 10-325MG 1 EACH TAB PO PRN ×4 (00:26→20:24)
[2022-07-29] MEDS ORDERED: GENTAMICIN TROUGH DUE 1 EACH MISC MISCELLANE ONE (03:00)
[2022-07-29] MEDS: SODIUM CHLORIDE 0.9% 1,000 ML IV SCH ×3 (05:09→18:30)
[2022-07-29] MEDS: PANTOPRAZOLE 40 MG TABLET PO SCH (06:03)
[2022-07-29 06:05] LABS: Glucose,Whole Blood 113 mg/dL (70-110)
--- NOTE | 2022-07-29 07:50 | US ---
EXAMINATION TYPE: US abdomen complete DATE OF EXAM: 07/29/2022 COMPARISON: CT abdomen pelvis 01/22/2021, renal ultrasound 11/28/2020 CLINICAL HISTORY: UTI,Elevated lipase. UTI, abd pain, 338lbs, cholecystectomy, elevated lipase TECHNIQUE: Multiple sonographic images of the abdomen are obtained. FINDINGS: EXAM MEASUREMENTS: Liver Length: 22.2 cm Gallbladder Wall: Surgically absent CBD: 0.9 cm Spleen: 13.6 cm Right Kidney: 11.7 x 5.7 x 6.4 cm Left Kidney: 11.7 x 5.5 x 5.8 cm Pancreas: wnl Liver: enlarged and difficult to penetrate Gallbladder: Surgically absent CBD: normal for post cholecystectomy Spleen: enlarged Right Kidney: wnl Left Kidney: wnl - probable adrenal lesion seen superior to left renal = 3.1 x 3.2 x 2.6cm Upper IVC: wnl Abd Aorta: wnl The liver is enlarged and difficult to penetrate without focal lesion notified. The intrahepatic por tion of the IVC and proximal abdominal aorta are within normal limits. Common bile duct is dilated w hich is within normal limits for post cholecystectomy. The visualized portions of the pancreas are h omogenous. The spleen is mildly enlarged. Kidneys are symmetric and free of hydronephrosis. No gavin al lesions are seen. Left adrenal gland paracolic lesion measuring up to 3.2 cm. IMPRESSION: 1. No acute process. 2. Hepatomegaly without focal lesion. 3. Mild splenomegaly. 4. Redemonstration of left adrenal lesion corresponding to prior CT. 5. Post cholecystectomy changes.
[2022-07-29] MEDS: ALPRAZolam 1 MG TAB PO SCH ×4 (09:02→23:09)
[2022-07-29] MEDS: MULTIVITAMINS, THERA 1 EACH TAB PO SCH (09:03)
[2022-07-29] MEDS: SENNOSIDES-DOCUSATE SODIUM 1 EACH TAB PO SCH (09:03)
[2022-07-29] MEDS: OLANZapine 5 MG TAB PO SCH (09:03)
[2022-07-29] MEDS: FUROSEMIDE 20 MG TAB PO SCH (09:03)
[2022-07-29] MEDS: ATORVASTATIN 20 MG TAB PO SCH (09:03)
[2022-07-29] MEDS: ASCORBIC ACID 500 MG TAB PO SCH (09:03)
[2022-07-29] MEDS: CHOLECALCIFEROL 125 MCG (5000 IU) TABLET PO SCH (09:03)
[2022-07-29] MEDS: MORPHINE SULFATE ER 15 MG TABLET PO SCH (09:03)
[2022-07-29 09:26] LABS: African American GFR (CKD) 102.5 (60.0-200.0); Anion Gap 10.5 mmol/L (10.00-18.00); BUN/Creat Ratio 26.75 Ratio (12.00-20.00); Blood Urea Nitrogen 21.4 mg/dL (9.0-27.0); Calcium 9.2 mg/dL (8.7-10.3); Carbon Dioxide 22.5 mmol/L (20.0-27.5); Non-African American GFR(CKD) 88.4 (60.0-200.0); Potassium 4.3 mmol/L (3.5-5.5)
[2022-07-29] MEDS ORDERED: DEXTROSE 50% SYRINGE 50 ML IVP PRN ×2 (11:09)
[2022-07-29 12:17] LABS: Glucose,Whole Blood 177 mg/dL (70-110)
[2022-07-29] MEDS: INSULIN ASPART (NovoLOG) 100 UNIT/ML VIAL SQ SCH ×3 (13:06→23:19)
[2022-07-29] MEDS: PSEUDOEPHEDRINE 12HR 120 MG TABLET.ER PO SCH ×2 (13:07→23:09)
[2022-07-29] MEDS: valACYclovir HCL 1,000 MG TABLET PO SCH (13:07)
--- NOTE | 2022-07-29 15:32 | P.PN ---
Subjective Progress Note Date: 07/29/22 Patient is a 46-year-old female with a known history of hypertension, diabetes type 2, fibromyalgia, history of CVA/TIA, left foot drop, history of seizure disorder, anxiety and prior history of urinary tract infection and multiple antibiotic allergies presents to ER with the complaints of lower abdominal discomfort, nausea, bilateral flank pain and night sweats and hot flashes which is similar to her prior urinary tract infection. Denies any dysuria otherwise. She went to see her primary care physician and was recommended to go to ER. Denies any complaints of chest pain or shortness of breath. No cough or sputum production. No headache or dizziness or lightheadedness. Laboratory test showed sodium 140 potassium 4.5 chloride 104 bicarb is 31 BUN 21 creatinine 0.82 and blood sugar is 111 Loading episode not elevated. Lipase level is 324. Urinalysis showed cloudy with 2+ protein trace ketones, moderate leukocyte esterase with elevated RBCs and WBCs. Squamous epithelial cells 2. 07/29/2022 Patient is seen and evaluated in follow-up today continues to report bilateral CVA tenderness and flank pain and is maintained on IV antibiotics. Patient was continued on gentamicin and antibiotics being transitioned to IV aztreonam with infectious disease following. Patient is afebrile and currently awaiting for cultures to finalize. Patient having extreme concerns of her home medications not being reordered including her Actos and glipizide and informed her we will cover with sliding scale and Accu-Cheks before meals and at bedtime for now. Encouraged increased activity as tolerated and encouraged oral intake. Recommend consistent carb diet Review of systems: Constitutional: No reports of fatigue, fever, or chills, reporting back pain and kidney pain Cardiovascular: No reports of chest pain or palpitations Respiratory: No reports of shortness of breath or cough GI: No reports of nausea, vomiting, or diarrhea : No reports of dysuria or retention Neurovascular: No reports of weakness or numbness All medications have been reviewed Active Medications Acetaminophen (Acetaminophen Tab 325 Mg Tab) 650 mg PO Q6HR PRN PRN Reason: Mild Pain or Fever > 100.5 Alprazolam (Alprazolam 1 Mg Tab) 1 mg PO QID [facility] Last Admin: 07/29/22 13:06 Dose: 1 mg Ascorbic Acid (Ascorbic Acid 500 Mg Tab) 2,000 mg PO DAILY [facility] Last Admin: 07/29/22 09:03 Dose: 2,000 mg Atorvastatin Calcium (Atorvastatin 20 Mg Tab) 20 mg PO DAILY [facility] Last Admin: 07/29/22 09:03 Dose: 20 mg Baclofen (Baclofen 10 Mg Tab) 10 mg PO BID PRN PRN Reason: Muscle Pain Cholecalciferol (Cholecalciferol 125 Mcg (5000 Iu) Tablet) 125 mcg PO DAILY [facility] Last Admin: 07/29/22 09:03 Dose: 125 mcg Dextrose/Water (Dextrose 50% Syringe 50 Ml) 25 ml IVP PER PROTOCOL PRN; Protoco l PRN Reason: Hypoglycemia Dextrose/Water (Dextrose 50% Syringe 50 Ml) 50 ml IVP PER PROTOCOL PRN; Protocol PRN Reason: Hypoglycemia Furosemide (Furosemide 20 Mg Tab) 20 mg PO DAILY [facility] Last Admin: 07/29/22 09:03 Dose: 20 mg Sodium Chloride (Saline 0.9%) 1,000 mls @ 75 mls/hr IV .[id number] [facility] Last Admin: 07/29/22 05:09 Dose: 75 mls/hr Aztreonam 2 gm/ Sodium (Chloride) 100 mls @ 33.3 mls/hr IVPB Q8HR [facility]; Protocol Insulin Aspart (Insulin Aspart (Novolog) 100 Unit/Ml Vial) 0 unit SQ ACHS [facility]; Protocol Last Admin: 07/29/22 13:06 Dose: 2 unit Morphine Sulfate (Morphine Sulfate Er 15 Mg Tablet) 15 mg PO DAILY [facility]; Protocol Last Admin: 07/29/22 09:03 Dose: 15 mg Multivitamins (Multivitamins, Thera 1 Each Tab) 1 each PO DAILY [facility] Last Admin: 07/29/22 09:03 Dose: 1 each Non-Formulary Medication (Dulaglutide [Trulicity]) 0.75 mg SQ MO [facility] Olanzapine (Olanzapine 5 Mg Tab) 5 mg PO DAILY [facility] Last Admin: 07/29/22 09:03 Dose: 5 mg Ondansetron HCl (Ondansetron 4 Mg/2 Ml Vial) 4 mg IVP Q8HR PRN PRN Reason: Nausea And Vomiting Last Admin: 07/28/22 21:01 Dose: 4 mg Oxycodone/Acetaminophen (Oxycodone-Apap 10-325mg 1 Each Tab) 1 each PO 5XD PRN PRN Reason: Pain Last Admin: 07/29/22 09:20 Dose: 1 each Pantoprazole Sodium (Pantoprazole 40 Mg Tablet) 40 mg PO AC-BRKFST [facility] Last Admin: 07/29/22 06:03 Dose: 40 mg Pseudoephedrine HCl (Pseudoephedrine 12hr 120 Mg Tablet.Er) 120 mg PO BID [facility] Last Admin: 07/29/22 13:07 Dose: 120 mg Senna/Docusate Sodium (Sennosides-Docusate Sodium 1 Each Tab) 1 each PO DAILY [facility] Last Admin: 07/29/22 09:03 Dose: 1 each Valacyclovir HCl (Valacyclovir Hcl 1,000 Mg Tablet) 1,000 mg PO DAILY [facility]; Protocol Last Admin: 07/29/22 13:07 Dose: 1,000 mg Physical exam: Gen: This is a 46-year-old female who is awake, alert and oriented 3, well- developed, well-nourished, morbidly obese HEENT: Head is atraumatic, normocephalic. Pupils equal, round. Sclerae is anicteric. NECK: Supple. No JVD. No lymphadenopathy. No thyromegaly. LUNGS: Clear to auscultation. No wheezes or rhonchi. No intercostal retractions. HEART: Regular rate and rhythm. No murmur. ABDOMEN: Soft. Bowel sounds are present. No masses. Lower abdominal tenderness on palpation. Bilateral CVA tenderness noted on palpation EXTREMITIES: No pedal edema. No calf tenderness. NEUROLOGICAL: Patient is awake, alert and oriented x3. Cranial nerves 2 through 12 are grossly intact. Assessment: Acute urinary tract infection possible pyelonephritis. Multiple antibiotic allergies Prior history of UTIs Elevated lipase level 325 Hypertension Hyperlipidemia Diabetes type 2 [id number] Chronic pain/fibromyalgia Morbid obesity with BMI 45.8 History of seizure disorder History of CVA/TIA Left foot drop History of herpes simplex type II, chronically takes Valtrex Anxiety Prior history of cholecystectomy DVT prophylaxis heparin subcu Full code Plan: Patient will be continued on IV hydration with normal saline. Patient was initiated on gentamicin and being transitioned to IV aztreonam with infectious disease following Patient currently does have a midline and will await finalized cultures to determine discharge antibiotics Patient continues to report flank pain bilaterally with CVA tenderness and will continue with current pain regimen Patient takes multiple pain medications as well as diabetic medications and concerned about her Actos and glipizide not being resumed. Discussed with the patient about tight glycemic control and we will continue to monitor Accu-Cheks before meals and at bedtime and continue sliding scale for now Encouraged to increase activity as tolerated Given patient's severity of symptoms including continued CVA tenderness and abdominal pain and awaiting cultures patient will require more than 2 night hospitalization at this time Due to multiple complex medical issues, prognosis is guarded The impression and plan of care has been dictated by Oliva Stafford, Nurse Practitioner as directed. Dr. Brendon MD I have performed a history and examination and MDM of this patient, discussed the same with the dictator, and agree with the dictator's assessment and plan as written ,documented as a scribe. Based on total visit time, I have performed more than 50% of the visit. Objective - Vital Signs Vital signs: Vital Signs Temp 97.4 F L 07/29/22 07:00 Pulse 78 07/29/22 07:00 Resp 20 07/29/22 07:00 BP 131/71 07/29/22 07:00 Pulse Ox 99 07/29/22 07:00 FiO2 Intake & Output 07/28/22 07/29/22 07/29/22 18:59 06:59 18:59 Intake Total 240 0 118 Balance 240 0 118 Weight 153.314 kg Intake: Oral 240 0 118 Other: Voiding Method Toilet # Voids 2 - Labs CBC & Chem 7: 07/28/22 13:21 07/29/22 04:26 Labs: Abnormal Lab Results - Last 24 Hours (Table) 07/28/22 07/28/22 07/28/22 Range/Units 13:21 13:21 13:21 Lymphocytes # 0.8 L (1.0-4.8) k/uL Carbon Dioxide 31 H (22-30) mmol/L BUN 21 H (7-17) mg/dL BUN/Creatinine Ratio (12.00-20.00) Ratio Glucose 111 H (74-99) mg/dL POC Glucose (mg/dL) (70-110) mg/dL Lipase 324 H (23-300) U/L Urine Appearance Cloudy H (Clear) Urine Protein 2+ H (Negative) Urine Glucose (UA) Trace H (Negative) Urine Ketones Trace H (Negative) Ur Leukocyte Esterase Moderate H (Negative) Urine RBC 6 H (0-5) /hpf Urine WBC 105 H (0-5) /hpf Urine Bacteria Many H (None) /hpf Hyaline Casts 7 H (0-2) /lpf Urine Mucus Few H (None) /hpf 07/28/22 07/28/22 07/29/22 Range/Units 17:43 20:35 04:26 Lymphocytes # (1.0-4.8) k/uL Carbon Dioxide (22-30) mmol/L BUN (7-17) mg/dL BUN/Creatinine Ratio 26.75 H (12.00-20.00) Ratio Glucose 129 H (74-99) mg/dL POC Glucose (mg/dL) 67 L 125 H (70-110) mg/dL Lipase (23-300) U/L Urine Appearance (Clear) Urine Protein (Negative) Urine Glucose (UA) (Negative) Urine Ketones (Negative) Ur Leukocyte Esterase (Negative) Urine RBC (0-5) /hpf Urine WBC (0-5) /hpf Urine Bacteria (None) /hpf Hyaline Casts (0-2) /lpf Urine Mucus (None) /hpf 07/29/22 Range/Units 06:04 Lymphocytes # (1.0-4.8) k/uL Carbon Dioxide (22-30) mmol/L BUN (7-17) mg/dL BUN/Creatinine Ratio (12.00-20.00) Ratio Glucose (74-99) mg/dL POC Glucose (mg/dL) 113 H (70-110) mg/dL Lipase (23-300) U/L Urine Appearance (Clear) Urine Protein (Negative) Urine Glucose (UA) (Negative) Urine Ketones (Negative) Ur Leukocyte Esterase (Negative) Urine RBC (0-5) /hpf Urine WBC (0-5) /hpf Urine Bacteria (None) /hpf Hyaline Casts (0-2) /lpf Urine Mucus (None) /hpf Microbiology - Last 24 Hours (Table) 07/28/22 13:21 Urine Culture - Preliminary Urine,Voided
[2022-07-29] MEDS: AZTREONAM 2 GM in SODIUM CHLORIDE 0.9% 100 ML IVPB SCH ×2 (16:33→23:46)
[2022-07-29 17:21] LABS: Glucose,Whole Blood 156 mg/dL (70-110)
--- NOTE | 2022-07-29 22:55 | P.CONS ---
History of Present Illness - Reason for Consult Consult date: 07/29/22 UTI and antibiotic ALLERGIES Requesting physician: Donell Olivas - Chief Complaint Urine burning and kidney pain x days - History of Present Illness Patient is a 46-year-old female with multiple comorbidities including diabetes mellitus fibromyalgia hypertension seizure disorder CVA TIA and history of recurrent UTIs with multiple antibiotic allergies patient presenting to the ER yesterday afternoon for evaluation of significant burning of urine and also complaining of flank pain patient symptom has been going on for few days before presentation to the hospital patient describing the pain to the suprapubic and flank area to be more of a sharp in nature 7-8 out of 10 and no radiation with associated nausea but no vomiting and denies having any diarrhea on presentation to the hospital the patient was afebrile and no fever has been recorded subsequently patient did have a normal white count kidney function has been normal liver enzymes are normal urine was positive cultures pending patient was started on gentamicin infectious disease was consulted for further management of antibiotic therapy because of her multiple antibiotic allergies, patient did have abdominal ultrasound completed this morning no acute process hepatomegaly mild splenomegaly and postcholecystectomy changes did not mention any hydronephrosis Review of Systems Positive point has been mentioned in the HPI rest of the systems are negative Past Medical History Past Medical History: CVA/TIA, Diabetes Mellitus, Fibromyalgia, Hypertension, Musculoskeletal Disorder, Seizure Disorder Additional Past Medical History / Comment(s): DDD, hx of kidney stones, Drop foot syndrome Left foot (secondary to a TIA and seizure combined), abd. pain, frequent nausea History of Any Multi-Drug Resistant Organisms: MRSA Year Discovered:: 07/04/01 MDRO Source:: gallbladder Past Surgical History: Cholecystectomy, Hernia Repair Additional Past Surgical History / Comment(s): CATARACT SURGERY, kidney stents ; Colonoscopies, ventral hernia 08/02/17, recent EGD Past Anesthesia/Blood Transfusion Reactions: No Reported Reaction Past Psychological History: Anxiety Smoking Status: Never smoker Past Alcohol Use History: None Reported Past Drug Use History: None Reported - Past Family History Father Family Medical History: No Reported History Mother Family Medical History: Cancer Additional Family Medical History / Comment(s): breast cancer (axilla location) dx at age 45. Maternal aunt dx with breast cancer @50, at age 54 from breast cancer Sister(s) Family Medical History: Cancer Additional Family Medical History / Comment(s): at age 8 from Leukemia, Medications and Allergies Home Medications Medication Instructions Recorded Confirmed Type glipiZIDE [Glucotrol] 20 mg PO DAILY 11/02/17 07/28/22 History valACYclovir HCL [Valacyclovir] 1,000 mg PO DAILY 11/21/19 07/28/22 History Sennosides/Docusate Sodium 1 tab PO DAILY 10/13/20 07/28/22 History [Senna-S 8.6-50 mg Tablet] oxyCODONE-APAP 10-325MG [Percocet 1 tab PO 5XD 03/07/21 07/28/22 History 10-325 mg] Baclofen 10 mg PO BID PRN 02/10/22 07/28/22 History Dulaglutide [Trulicity] 0.75 mg SQ MO 02/10/22 07/28/22 History Morphine Sulfate ER [Ms Contin] 15 mg PO DAILY 02/10/22 07/28/22 History Pioglitazone [Actos] 30 mg PO DAILY 02/10/22 07/28/22 History Rosuvastatin [Crestor] 10 mg PO DAILY 02/10/22 07/28/22 History lisinopriL [Zestril] 5 mg PO DAILY 02/10/22 07/28/22 History ALPRAZolam [Xanax] 1 mg PO QID 07/28/22 07/28/22 History Ascorbic Acid [Vitamin C] 2,000 mg PO DAILY 07/28/22 07/28/22 History Cholecalciferol [Vitamin D3 (125 125 mcg PO DAILY 07/28/22 07/28/22 History Mcg = 5000 Iu)] Furosemide [Lasix] 20 mg PO DAILY 07/28/22 07/28/22 History Multivitamins, Thera [Multivitamin 1 tab PO DAILY 07/28/22 07/28/22 History (formulary)] OLANZapine [ZyPREXA] 5 mg PO DAILY 07/28/22 07/28/22 History Phytonadione [Vitamin K] 5 mg PO DAILY 07/28/22 07/28/22 History Potassium Gluconate 99 mg PO DAILY 07/28/22 07/28/22 History Pseudoephedrine 12Hr [Sudafed 12 240 mg PO DAILY 07/28/22 07/28/22 History Hour] hydroCHLOROthiazide 25 mg PO DAILY 07/28/22 07/28/22 History Allergies Allergy/AdvReac Type Severity Reaction Status Date / Time adhesive tape Allergy Severe Rash/Hives Verified 07/28/22 16:03 cortisone [Cortisone] Allergy Severe Anaphylaxis Verified 07/28/22 16:03 diphenhydramine HCl Allergy Severe Anaphylaxis Verified 07/28/22 16:03 [From Benadryl] Penicillins Allergy Severe Anaphylaxis Verified 07/28/22 16:03 Sulfa (Sulfonamide Allergy Intermediate Rash/Hives Verified 07/28/22 16:03 Antibiotics) Cephalosporins Allergy Mild Rash/Hives Verified 07/28/22 16:03 doxycycline Allergy Mild Rash/Hives Verified 07/28/22 16:03 Quinolones Allergy Mild Rash/Hives Verified 07/28/22 16:03 George And Derivatives Allergy Rash/Hives Verified 07/28/22 16:03 [George] Iodine and Iodide Containing Allergy Unknown Verified 07/28/22 16:03 Produc nitrofurantoin AdvReac Abdominal Verified 07/28/22 16:03 [From Macrobid] Pain Physical Exam Vitals: Vital Signs Temp Pulse Pulse Resp BP BP Pulse Ox 07/29/22 07:00 97.4 F L 78 20 131/71 99 07/29/22 00:47 97.8 F 93 17 120/81 97 07/28/22 20:00 92 16 07/28/22 19:02 97.3 F L 92 16 112/75 95 07/28/22 17:43 97.6 F 87 117/81 99 07/28/22 16:29 90 18 128/80 07/28/22 13:23 90 18 123/79 99 Intake and Output 07/28/22 07/29/22 07/29/22 22:59 06:59 14:59 Intake Total 240 0 118 Balance 240 0 118 Intake: Oral 240 0 118 Other: Voiding Method Toilet Toilet # Voids 2 2 Weight 153.314 kg GENERAL DESCRIPTION: Middle-aged female lying in bed, no distress. No tachypnea or accessory muscle of respiration use. HEENT: Shows Pallor , no scleral icterus. Oral mucous membrane is dry. No pharyngeal erythema or thrush NECK: Trachea central, no thyromegaly. LUNGS: Unlabored breathing. Decreased breath sound the bases HEART: S1, S2, regular rate and rhythm. ABDOMEN: Soft, no tenderness , guarding or rigidity EXTREMITIES: Some swelling to the legs SKIN: No rash, no masses palpable. NEUROLOGICAL: The patient is awake, alert, oriented x3, mood and affect normal. Results CBC & Chem 7: 07/30/22 06:58 07/30/22 06:58 Labs: Abnormal Lab Results - Last 24 Hours (Table) 07/28/22 07/28/22 07/28/22 Range/Units 13:21 13:21 13:21 Lymphocytes # 0.8 L (1.0-4.8) k/uL Carbon Dioxide 31 H (22-30) mmol/L BUN 21 H (7-17) mg/dL BUN/Creatinine Ratio (12.00-20.00) Ratio Glucose 111 H (74-99) mg/dL POC Glucose (mg/dL) (70-110) mg/dL Lipase 324 H (23-300) U/L Urine Appearance Cloudy H (Clear) Urine Protein 2+ H (Negative) Urine Glucose (UA) Trace H (Negative) Urine Ketones Trace H (Negative) Ur Leukocyte Esterase Moderate H (Negative) Urine RBC 6 H (0-5) /hpf Urine WBC 105 H (0-5) /hpf Urine Bacteria Many H (None) /hpf Hyaline Casts 7 H (0-2) /lpf Urine Mucus Few H (None) /hpf 07/28/22 07/28/22 07/29/22 Range/Units 17:43 20:35 04:26 Lymphocytes # (1.0-4.8) k/uL Carbon Dioxide (22-30) mmol/L BUN (7-17) mg/dL BUN/Creatinine Ratio 26.75 H (12.00-20.00) Ratio Glucose 129 H (74-99) mg/dL POC Glucose (mg/dL) 67 L 125 H (70-110) mg/dL Lipase (23-300) U/L Urine Appearance (Clear) Urine Protein (Negative) Urine Glucose (UA) (Negative) Urine Ketones (Negative) Ur Leukocyte Esterase (Negative) Urine RBC (0-5) /hpf Urine WBC (0-5) /hpf Urine Bacteria (None) /hpf Hyaline Casts (0-2) /lpf Urine Mucus (None) /hpf 07/29/22 Range/Units 06:04 Lymphocytes # (1.0-4.8) k/uL Carbon Dioxide (22-30) mmol/L BUN (7-17) mg/dL BUN/Creatinine Ratio (12.00-20.00) Ratio Glucose (74-99) mg/dL POC Glucose (mg/dL) 113 H (70-110) mg/dL Lipase (23-300) U/L Urine Appearance (Clear) Urine Protein (Negative) Urine Glucose (UA) (Negative) Urine Ketones (Negative) Ur Leukocyte Esterase (Negative) Urine RBC (0-5) /hpf Urine WBC (0-5) /hpf Urine Bacteria (None) /hpf Hyaline Casts (0-2) /lpf Urine Mucus (None) /hpf Microbiology - Last 24 Hours (Table) 07/28/22 13:21 Urine Culture - Preliminary Urine,Voided Assessment and Plan (1) Allergy to multiple antibiotics Status: Acute Code(s): Z88.1 - ALLERGY STATUS TO OTHER ANTIBIOTIC AGENTS SNOMED Code(s): 473912480 (2) Urinary tract infection Status: Acute Code(s): N39.0 - URINARY TRACT INFECTION, SITE NOT SPECIFIED SNOMED Code(s): 78963727 Plan: 1patient presented to hospital with significant burning of urine suprapubic and flank pain concerning for symptomatic urinary tract infection more likely cystitis clinic not behaving as pyelonephritis in this patient with no fever or elevated white count ultrasound abdomen did not show any hydronephrosis or obstructive uropathy. 2patient with multiple antibiotic allergies that would limit the number of antibiotics safe to use. 3discontinue gentamicin to decrease risk of nephrotoxicity. 4we will start the patient on Azactam 2 g every 8 hours while waiting for the culture to finalize. We will follow on clinical condition and cultures to further adjust medication if needed Thank you for this consultation we will follow the patient along with you Time with Patient: Greater than 30
[2022-07-29 23:13] LABS: Glucose,Whole Blood 143 mg/dL (70-110)
[2022-07-30 06:00] LABS: Glucose,Whole Blood 150 mg/dL (70-110)
[2022-07-30] MEDS: INSULIN ASPART (NovoLOG) 100 UNIT/ML VIAL SQ SCH ×4 (06:00→21:27)
[2022-07-30] MEDS ORDERED: GENTAMICIN 500 MG in SODIUM CHLORIDE 0.9% 100 ML IVPB SCH (06:00)
[2022-07-30] MEDS: PANTOPRAZOLE 40 MG TABLET PO SCH (06:01)
[2022-07-30] MEDS: SODIUM CHLORIDE 0.9% 1,000 ML IV SCH ×2 (09:37→21:27)
[2022-07-30] MEDS: AZTREONAM 2 GM in SODIUM CHLORIDE 0.9% 100 ML IVPB SCH ×3 (09:38→23:59)
[2022-07-30] MEDS: MORPHINE SULFATE ER 15 MG TABLET PO SCH (09:40)
[2022-07-30] MEDS: CHOLECALCIFEROL 125 MCG (5000 IU) TABLET PO SCH (09:41)
[2022-07-30] MEDS: ASCORBIC ACID 500 MG TAB PO SCH (09:41)
[2022-07-30] MEDS: ALPRAZolam 1 MG TAB PO SCH ×4 (09:41→21:26)
[2022-07-30] MEDS: PSEUDOEPHEDRINE 12HR 120 MG TABLET.ER PO SCH ×2 (09:41→21:26)
[2022-07-30] MEDS: SENNOSIDES-DOCUSATE SODIUM 1 EACH TAB PO SCH (09:41)
[2022-07-30] MEDS: ATORVASTATIN 20 MG TAB PO SCH (09:41)
[2022-07-30] MEDS: FUROSEMIDE 20 MG TAB PO SCH (09:41)
[2022-07-30] MEDS: MULTIVITAMINS, THERA 1 EACH TAB PO SCH (09:41)
[2022-07-30] MEDS: oxyCODONE-APAP 10-325MG 1 EACH TAB PO PRN ×3 (09:41→21:26)
[2022-07-30] MEDS: OLANZapine 5 MG TAB PO SCH (09:42)
[2022-07-30] MEDS: valACYclovir HCL 1,000 MG TABLET PO SCH (09:42)
[2022-07-30] MEDS: ONDANSETRON 4 MG/2 ML VIAL IVP PRN ×2 (10:11→21:33)
[2022-07-30 11:56] LABS: Basophils # (A) 0.04 X 10*3/uL (0.00-0.10); Eosinophils # (A) 0 X 10*3/uL (0.04-0.35); Eosinophils % (A) 0 %; HCT 40.6 % (37.2-46.3); HGB 12.9 g/dL (12.0-15.0); Immature Grans, Automated 0.2 %; Lymphocytes % (A) 14.6 %; MCH 29.7 pg (27.0-32.0); MCHC 31.8 g/dL (32.0-37.0); MCV 93.3 fL (80.0-97.0); Mean Platelet Volume 11.2 fL (9.5-12.2); Monocytes # (A) 0.56 X 10*3/uL (0.20-1.00); Monocytes % (A) 13.6 %; NRBC Per 100 WBC 0 /100 WBCS (0.0-0.0); Neutrophils % (A) 70.6 %; Platelet Count 178 X 10*3/uL (140-440); RBC 4.35 X 10*6/uL (4.10-5.20); RDW 13.4 % (11.5-14.5); WBC 4.11 X 10*3/uL (4.50-10.00)
[2022-07-30 12:14] LABS: Glucose,Whole Blood 191 mg/dL (70-110)
--- NOTE | 2022-07-30 12:18 | P.PN ---
Subjective Progress Note Date: 07/30/22 Patient is a 46-year-old female with a known history of hypertension, diabetes type 2, fibromyalgia, history of CVA/TIA, left foot drop, history of seizure disorder, anxiety and prior history of urinary tract infection and multiple antibiotic allergies presents to ER with the complaints of lower abdominal discomfort, nausea, bilateral flank pain and night sweats and hot flashes which is similar to her prior urinary tract infection. Denies any dysuria otherwise. She went to see her primary care physician and was recommended to go to ER. Denies any complaints of chest pain or shortness of breath. No cough or sputum production. No headache or dizziness or lightheadedness. Laboratory test showed sodium 140 potassium 4.5 chloride 104 bicarb is 31 BUN 21 creatinine 0.82 and blood sugar is 111 Loading episode not elevated. Lipase level is 324. Urinalysis showed cloudy with 2+ protein trace ketones, moderate leukocyte esterase with elevated RBCs and WBCs. Squamous epithelial cells 2. 07/29/2022 Patient is seen and evaluated in follow-up today continues to report bilateral CVA tenderness and flank pain and is maintained on IV antibiotics. Patient was continued on gentamicin and antibiotics being transitioned to IV aztreonam with infectious disease following. Patient is afebrile and currently awaiting for cultures to finalize. Patient having extreme concerns of her home medications not being reordered including her Actos and glipizide and informed her we will cover with sliding scale and Accu-Cheks before meals and at bedtime for now. Encouraged increased activity as tolerated and encouraged oral intake. Recommend consistent carb diet 07/30/2022 Patient is seen and evaluated today continues on IV antibiotics in the form of aztreonam with infectious disease following and will likely require IV antibiotic therapy in the outpatient setting. Patient has a midline although needs case management/social work to verify coverage as IV antibiotics are not covered benefit in the home and will need to arrange for outpatient at the infusion center. Patient is currently afebrile continues with her chronic pain and reports back pain with tenderness. Patient's blood sugars have been well controlled and will continue current regimen. No reports of chest pain or shortness of breath noted. Review of systems: Constitutional: No reports of fatigue, fever, or chills, continues to report back pain and kidney pain Cardiovascular: No reports of chest pain or palpitations Respiratory: No reports of shortness of breath or cough GI: No reports of nausea, vomiting, or diarrhea : No reports of dysuria or retention Neurovascular: No reports of weakness or numbness All medications have been reviewed Active Medications Acetaminophen (Acetaminophen Tab 325 Mg Tab) 650 mg PO Q6HR PRN PRN Reason: Mild Pain or Fever > 100.5 Alprazolam (Alprazolam 1 Mg Tab) 1 mg PO QID [facility] Last Admin: 07/30/22 09:41 Dose: 1 mg Ascorbic Acid (Ascorbic Acid 500 Mg Tab) 2,000 mg PO DAILY [facility] Last Admin: 07/30/22 09:41 Dose: 2,000 mg Atorvastatin Calcium (Atorvastatin 20 Mg Tab) 20 mg PO DAILY [facility] Last Admin: 07/30/22 09:41 Dose: 20 mg Baclofen (Baclofen 10 Mg Tab) 10 mg PO BID PRN PRN Reason: Muscle Pain Cholecalciferol (Cholecalciferol 125 Mcg (5000 Iu) Tablet) 125 mcg PO DAILY [facility] Last Admin: 07/30/22 09:41 Dose: 125 mcg Dextrose/Water (Dextrose 50% Syringe 50 Ml) 25 ml IVP PER PROTOCOL PRN; Protocol PRN Reason: Hypoglycemia Dextrose/Water (Dextrose 50% Syringe 50 Ml) 50 ml IVP PER PROTOCOL PRN; Protocol PRN Reason: Hypoglycemia Furosemide (Furosemide 20 Mg Tab) 20 mg PO DAILY [facility] Last Admin: 07/30/22 09:41 Dose: 20 mg Sodium Chloride (Saline 0.9%) 1,000 mls @ 75 mls/hr IV .[id number] [facility] Last Admin: 07/30/22 09:37 Dose: 75 mls/hr Aztreonam 2 gm/ Sodium (Chloride) 100 mls @ 33.3 mls/hr IVPB Q8HR [facility]; Protocol Last Admin: 07/30/22 09:38 Dose: 33.3 mls/hr Insulin Aspart (Insulin Aspart (Novolog) 100 Unit/Ml Vial) 0 unit SQ ACHS [facility]; Protocol Last Admin: 07/30/22 06:00 Dose: Not Given Morphine Sulfate (Morphine Sulfate Er 15 Mg Tablet) 15 mg PO DAILY [facility]; Protocol Last Admin: 07/30/22 09:40 Dose: 15 mg Multivitamins (Multivitamins, Thera 1 Each Tab) 1 each PO DAILY [facility] Last Admin: 03/18/23 09:41 Dose: 1 each Non-Formulary Medication (Dulaglutide [Trulicity]) 0.75 mg SQ MO [facility] Olanzapine (Olanzapine 5 Mg Tab) 5 mg PO DAILY [facility] Last Admin: 07/30/22 09:42 Dose: 5 mg Ondansetron HCl (Ondansetron 4 Mg/2 Ml Vial) 4 mg IVP Q8HR PRN PRN Reason: Nausea And Vomiting Last Admin: 07/30/22 10:11 Dose: 4 mg Oxycodone/Acetaminophen (Oxycodone-Apap 10-325mg 1 Each Tab) 1 each PO 5XD PRN PRN Reason: Pain Last Admin: 07/30/22 09:41 Dose: 1 each Pantoprazole Sodium (Pantoprazole 40 Mg Tablet) 40 mg PO AC-BRKFST [facility] Last Admin: 07/30/22 06:01 Dose: 40 mg Pseudoephedrine HCl (Pseudoephedrine 12hr 120 Mg Tablet.Er) 120 mg PO BID [facility] Last Admin: 07/30/22 09:41 Dose: 120 mg Senna/Docusate Sodium (Sennosides-Docusate Sodium 1 Each Tab) 1 each PO DAILY [facility] Last Admin: 07/30/22 09:41 Dose: 1 each Valacyclovir HCl (Valacyclovir Hcl 1,000 Mg Tablet) 1,000 mg PO DAILY [facility]; Protocol Last Admin: 07/30/22 09:42 Dose: 1,000 mg Physical exam: Gen: This is a 46-year-old female who is awake, alert and oriented 3, well- developed, well-nourished, morbidly obese HEENT: Head is atraumatic, normocephalic. Pupils equal, round. Sclerae is anicteric. NECK: Supple. No JVD. No lymphadenopathy. No thyromegaly. LUNGS: Clear to auscultation. No wheezes or rhonchi. No intercostal retractions. HEART: Regular rate and rhythm. No murmur. ABDOMEN: Soft. Bowel sounds are present. No masses. Lower abdominal tenderness on palpation. Bilateral CVA tenderness noted on palpation EXTREMITIES: No pedal edema. No calf tenderness. NEUROLOGICAL: Patient is awake, alert and oriented x3. Cranial nerves 2 through 12 are grossly intact. Assessment: Acute urinary tract infection, present on admission with possible pyelonephritis. Multiple antibiotic allergies Prior history of UTIs Elevated lipase level 325 Hypertension Hyperlipidemia Diabetes type 2 [id number] Chronic pain/fibromyalgia Morbid obesity with BMI 45.8 History of seizure disorder History of CVA/TIA Left foot drop History of herpes simplex type II, chronically takes Valtrex Anxiety Prior history of cholecystectomy DVT prophylaxis heparin subcu Full code Plan: Patient will be continued on IV hydration with normal saline. Patient to continue on aztreonam and awaiting cultures. Preliminary showing gram-negative bacilli with infectious disease following and will need to arrange for outpatient IV antibiotic therapy most likely. Patient does have a midline although only case management to verify coverage in the office and arrange for outpatient asthmatics Recommend continue with Accu-Cheks before meals and at bedtime and will use sliding scale as needed, continue consistent carb diet Encouraged to increase activity as tolerated Currently awaiting finalized cultures and arrangement of possible outpatient IV antibiotics Due to multiple complex medical issues, prognosis is guarded The impression and plan of care has been dictated as a scribe by Oliva Stafford, Nurse Practitioner as directed. Dr. Brendon MD I have performed a history and examination and MDM of this patient, discussed the same with the dictator, and will be documented as a scribe. Based on total visit time, I have performed more than 50% of the visit. Objective - Vital Signs Vital signs: Vital Signs Temp 97.6 F 07/30/22 07:00 Pulse 83 07/30/22 07:00 Resp 16 07/30/22 07:00 BP 119/79 07/30/22 07:00 Pulse Ox 98 07/30/22 07:00 FiO2 Intake & Output 07/29/22 07/30/22 07/30/22 18:59 06:59 18:59 Intake Total 1198 400 600 Balance 1198 400 600 Intake: Intake, IV Titration 600 150 Amount Aztreonam 2 gm In Sodium 150 Chloride 0.9% 100 ml @ 33 .3 mls/hr IVPB Q8HR [facility] Rx#:[id number] Sodium Chloride 0.9% 1, 600 000 ml @ 75 mls/hr IV . [id number] [facility] Rx#:[id number] Oral 598 250 600 Other: Voiding Method Toilet - Labs CBC & Chem 7: 07/30/22 06:58 07/29/22 04:26 Labs: Abnormal Lab Results - Last 24 Hours (Table) 07/28/22 07/29/22 07/29/22 Range/Units 13:21 12:15 17:19 WBC (4.50-10.00) X 10*3/uL MCHC (32.0-37.0) g/dL Lymphocytes # (0.90-5.00) X 10*3/uL Eosinophils # (0.04-0.35) X 10*3/uL POC Glucose (mg/dL) 177 H 156 H (70-110) mg/dL Hemoglobin A1c 7.0 H (0.0-6.0) % 07/29/22 07/30/22 07/30/22 Range/Units 23:10 05:58 06:58 WBC 4.11 L (4.50-10.00) X 10*3/uL MCHC 31.8 L (32.0-37.0) g/dL Lymphocytes # 0.60 L (0.90-5.00) X 10*3/uL Eosinophils # 0 L (0.04-0.35) X 10*3/uL POC Glucose (mg/dL) 143 H 150 H (70-110) mg/dL Hemoglobin A1c (0.0-6.0) % Microbiology - Last 24 Hours (Table) 07/28/22 13:21 Urine Culture - Preliminary Urine,Voided Gram Neg Bacilli
[2022-07-30 15:12] LABS: African American GFR (CKD) 111.5 (60.0-200.0); Anion Gap 11.8 mmol/L (10.00-18.00); BUN/Creat Ratio 22.12 Ratio (12.00-20.00); Blood Urea Nitrogen 16.5 mg/dL (9.0-27.0); Calcium 9.4 mg/dL (8.7-10.3); Carbon Dioxide 25.4 mmol/L (20.0-27.5); Non-African American GFR(CKD) 96.2 (60.0-200.0); Potassium 4.5 mmol/L (3.5-5.5)
[2022-07-30 17:08] LABS: Glucose,Whole Blood 145 mg/dL (70-110)
[2022-07-30 21:10] LABS: Glucose,Whole Blood 196 mg/dL (70-110)
--- NOTE | 2022-07-30 22:41 | P.PN ---
Subjective Progress Note Date: 07/30/22 Principal diagnosis: Urinary tract infection and multiple antibiotic ALLERGIES Patient is a 46-year-old female with a past medical history significant for recurrent UTI the patient did have multiple antibiotic ALLERGIES presented to the hospital with burning of urine suprapubic pain concerning for symptomatic UTI on today's evaluation that is 07/30/2022, the patient denies having any fever or any chills patient urinary symptom has slightly improved still coming of some nausea but no vomiting no chest pain shortness of breath or cough Objective - Vital Signs Vital signs: Vital Signs Temp 97.6 F 07/30/22 07:00 Pulse 83 07/30/22 07:00 Resp 16 07/30/22 07:00 BP 119/79 07/30/22 07:00 Pulse Ox 98 07/30/22 07:00 FiO2 Intake & Output 07/29/22 07/30/22 07/30/22 18:59 06:59 18:59 Intake Total 1198 400 600 Balance 1198 400 600 Intake: Intake, IV Titration 600 150 Amount Aztreonam 2 gm In Sodium 150 Chloride 0.9% 100 ml @ 33 .3 mls/hr IVPB Q8HR [facility] Rx#:[id number] Sodium Chloride 0.9% 1, 600 000 ml @ 75 mls/hr IV . [id number] [facility] Rx#:[id number] Oral 598 250 600 Other: Voiding Method Toilet - Exam GENERAL DESCRIPTION: Middle-age female lying in bed in no distress RESPIRATORY SYSTEM: Unlabored breathing , decreased breath sounds at bases HEART: S1 S2 regular rate and rhythm , ABDOMEN: Soft , no tenderness EXTREMITIES: No edema feet - Labs CBC & Chem 7: 07/30/22 06:58 07/30/22 06:58 Labs: Abnormal Lab Results - Last 24 Hours (Table) 07/28/22 07/29/22 07/29/22 Range/Units 13:21 12:15 17:19 POC Glucose (mg/dL) 177 H 156 H (70-110) mg/dL Hemoglobin A1c 7.0 H (0.0-6.0) % 07/29/22 07/30/22 Range/Units 23:10 05:58 POC Glucose (mg/dL) 143 H 150 H (70-110) mg/dL Hemoglobin A1c (0.0-6.0) % Microbiology - Last 24 Hours (Table) 07/28/22 13:21 Urine Culture - Preliminary Urine,Voided Gram Neg Bacilli Assessment and Plan (1) Allergy to multiple antibiotics Current Visit: Yes Status: Acute Code(s): Z88.1 - ALLERGY STATUS TO OTHER ANTIBIOTIC AGENTS SNOMED Code(s): 239205193 (2) Urinary tract infection Current Visit: Yes Status: Acute Code(s): N39.0 - URINARY TRACT INFECTION, SITE NOT SPECIFIED SNOMED Code(s): 71980295 Plan: 1patient presented to hospital with significant burning of urine suprapubic and flank pain concerning for symptomatic urinary tract infection more likely cystitis clinic not behaving as pyelonephritis in this patient with no fever or elevated white count ultrasound abdomen did not show any hydronephrosis or obstructive uropathy. 2patient with multiple antibiotic allergies that would limit the number of antibiotics safe to use. 3patient to continue with Azactam 2 g every 8 hours while waiting for the culture to finalize. Time with Patient: Less than 30
[2022-07-31 06:09] LABS: Glucose,Whole Blood 230 mg/dL (70-110)
[2022-07-31] MEDS: INSULIN ASPART (NovoLOG) 100 UNIT/ML VIAL SQ SCH ×4 (06:37→22:06)
[2022-07-31] MEDS: PANTOPRAZOLE 40 MG TABLET PO SCH (06:38)
[2022-07-31] MEDS: ATORVASTATIN 20 MG TAB PO SCH (08:54)
[2022-07-31] MEDS: oxyCODONE-APAP 10-325MG 1 EACH TAB PO PRN ×4 (08:54→23:22)
[2022-07-31] MEDS: valACYclovir HCL 1,000 MG TABLET PO SCH (08:55)
[2022-07-31] MEDS: ASCORBIC ACID 500 MG TAB PO SCH (08:55)
[2022-07-31] MEDS: OLANZapine 5 MG TAB PO SCH (08:56)
[2022-07-31] MEDS: MULTIVITAMINS, THERA 1 EACH TAB PO SCH (08:56)
[2022-07-31] MEDS: FUROSEMIDE 20 MG TAB PO SCH (08:56)
[2022-07-31] MEDS: CHOLECALCIFEROL 125 MCG (5000 IU) TABLET PO SCH (08:56)
[2022-07-31] MEDS: SENNOSIDES-DOCUSATE SODIUM 1 EACH TAB PO SCH (08:56)
[2022-07-31] MEDS: PSEUDOEPHEDRINE 12HR 120 MG TABLET.ER PO SCH ×2 (08:56→22:06)
[2022-07-31] MEDS: AZTREONAM 2 GM in SODIUM CHLORIDE 0.9% 100 ML IVPB SCH ×3 (08:56→23:22)
[2022-07-31] MEDS: SODIUM CHLORIDE 0.9% 1,000 ML IV SCH ×2 (09:01→23:26)
[2022-07-31] MEDS: ALPRAZolam 1 MG TAB PO SCH ×4 (09:13→22:06)
[2022-07-31] MEDS: MORPHINE SULFATE ER 15 MG TABLET PO SCH (09:13)
[2022-07-31 12:31] LABS: Glucose,Whole Blood 179 mg/dL (70-110)
[2022-07-31 12:55] LABS: Appearance,Urine Cloudy (Clear); Bacteria,Urine Rare /hpf; Bilirubin,Urine Negative (Negative); Blood,Urine Negative (Negative); Color,Urine Yellow; Glucose,Urine (UA) Negative (Negative); Ketones,Urine Negative (Negative); Leukocyte Esterase,Urine Large (Negative); Mucus,Urine Rare /hpf; Nitrite,Urine Negative (Negative); Protein,Urine Trace (Negative); RBC,Urine 4 /hpf (0-5); Specific Gravity,Urine 1.011 (1.001-1.035); Squamous Epithelial Cell,Urine 4 /hpf (0-4); Urobilinogen,Urine <2.0 mg/dL (<2.0); WBC,Urine 18 /hpf (0-5)
[2022-07-31] MEDS: PIOGLITAZONE 30 MG TAB PO SCH (13:00)
[2022-07-31] MEDS: glipiZIDE 10 MG TAB PO SCH (13:00)
[2022-07-31] MEDS: ONDANSETRON 4 MG/2 ML VIAL IVP PRN ×2 (13:24→23:22)
[2022-07-31 17:22] LABS: Glucose,Whole Blood 110 mg/dL (70-110)
[2022-07-31 21:28] LABS: Glucose,Whole Blood 177 mg/dL (70-110)
--- NOTE | 2022-07-31 23:12 | P.PN ---
Subjective Progress Note Date: 07/31/22 Principal diagnosis: Urinary tract infection and multiple antibiotic ALLERGIES Patient is a 46-year-old female with a past medical history significant for recurrent UTI the patient did have multiple antibiotic ALLERGIES presented to the hospital with burning of urine suprapubic pain concerning for symptomatic UTI on today's evaluation that is 07/31/2022, the patient remains to be afebrile, patient urinary symptom has slightly improved, however the patient is still complaining of some nausea but no vomiting no chest pain shortness of breath or cough Objective - Vital Signs Vital signs: Vital Signs Temp 97.5 F L 07/31/22 07:00 Pulse 98 07/31/22 07:00 Resp 16 07/31/22 07:00 BP 142/87 07/31/22 07:00 Pulse Ox 95 07/31/22 07:00 FiO2 Intake & Output 07/30/22 07/31/22 07/31/22 18:59 06:59 18:59 Intake Total 600 450 Balance 600 450 Intake: Intake, IV Titration 200 Amount Aztreonam 2 gm In Sodium 200 Chloride 0.9% 100 ml @ 33 .3 mls/hr IVPB Q8HR [facility] Rx#:[id number] Oral 600 250 Other: Voiding Method Toilet # Voids 4 - Exam GENERAL DESCRIPTION: Middle-age female lying in bed in no distress RESPIRATORY SYSTEM: Unlabored breathing , decreased breath sounds at bases HEART: S1 S2 regular rate and rhythm , ABDOMEN: Soft , no tenderness EXTREMITIES: No edema feet - Labs CBC & Chem 7: 07/30/22 06:58 07/30/22 06:58 Labs: Abnormal Lab Results - Last 24 Hours (Table) 07/30/22 07/30/22 07/30/22 Range/Units 06:58 06:58 12:13 WBC 4.11 L (4.50-10.00) X 10*3/uL MCHC 31.8 L (32.0-37.0) g/dL Lymphocytes # 0.60 L (0.90-5.00) X 10*3/uL Eosinophils # 0 L (0.04-0.35) X 10*3/uL BUN/Creatinine Ratio 22.12 H (12.00-20.00) Ratio Glucose 171 H (70-110) mg/dL POC Glucose (mg/dL) 191 H (70-110) mg/dL 07/30/22 07/30/22 07/31/22 Range/Units 17:06 21:09 06:08 WBC (4.50-10.00) X 10*3/uL MCHC (32.0-37.0) g/dL Lymphocytes # (0.90-5.00) X 10*3/uL Eosinophils # (0.04-0.35) X 10*3/uL BUN/Creatinine Ratio (12.00-20.00) Ratio Glucose (70-110) mg/dL POC Glucose (mg/dL) 145 H 196 H 230 H (70-110) mg/dL Microbiology - Last 24 Hours (Table) 07/28/22 13:21 Urine Culture - Final Urine,Voided Escherichia coli Assessment and Plan (1) Allergy to multiple antibiotics Current Visit: Yes Status: Acute Code(s): Z88.1 - ALLERGY STATUS TO OTHER ANTIBIOTIC AGENTS SNOMED Code(s): 220510779 (2) Urinary tract infection Current Visit: Yes Status: Acute Code(s): N39.0 - URINARY TRACT INFECTION, SITE NOT SPECIFIED SNOMED Code(s): 24596539 Plan: 1patient presented to hospital with significant burning of urine suprapubic and flank pain concerning for symptomatic urinary tract infection more likely cystitis clinic not behaving as pyelonephritis in this patient with no fever or elevated white count ultrasound abdomen did not show any hydronephrosis or obstructive uropathy. 2patient with multiple antibiotic allergies that would limit the number of antibiotics safe to use. 3patient urine has been finalized; which is a sensitive pathogen, patient to continue with Azactam 2 g every 8 hours because of her ALLERGIES we will repeat a UA if negative may not need antibiotic on discharge Time with Patient: Less than 30
--- NOTE | 2022-08-01 01:29 | P.PN ---
Subjective Progress Note Date: 07/31/22 Patient is a 46-year-old female with a known history of hypertension, diabetes type 2, fibromyalgia, history of CVA/TIA, left foot drop, history of seizure disorder, anxiety and prior history of urinary tract infection and multiple antibiotic allergies presents to ER with the complaints of lower abdominal discomfort, nausea, bilateral flank pain and night sweats and hot flashes which is similar to her prior urinary tract infection. Denies any dysuria otherwise. She went to see her primary care physician and was recommended to go to ER. Denies any complaints of chest pain or shortness of breath. No cough or sputum production. No headache or dizziness or lightheadedness. Laboratory test showed sodium 140 potassium 4.5 chloride 104 bicarb is 31 BUN 21 creatinine 0.82 and blood sugar is 111 Loading episode not elevated. Lipase level is 324. Urinalysis showed cloudy with 2+ protein trace ketones, moderate leukocyte esterase with elevated RBCs and WBCs. Squamous epithelial cells 2. 07/29/2022 Patient is seen and evaluated in follow-up today continues to report bilateral CVA tenderness and flank pain and is maintained on IV antibiotics. Patient was continued on gentamicin and antibiotics being transitioned to IV aztreonam with infectious disease following. Patient is afebrile and currently awaiting for cultures to finalize. Patient having extreme concerns of her home medications not being reordered including her Actos and glipizide and informed her we will cover with sliding scale and Accu-Cheks before meals and at bedtime for now. Encouraged increased activity as tolerated and encouraged oral intake. Recommend consistent carb diet 07/30/2022 Patient is seen and evaluated today continues on IV antibiotics in the form of aztreonam with infectious disease following and will likely require IV antibiotic therapy in the outpatient setting. Patient has a midline although needs case management/social work to verify coverage as IV antibiotics are not covered benefit in the home and will need to arrange for outpatient at the infusion center. Patient is currently afebrile continues with her chronic pain and reports back pain with tenderness. Patient's blood sugars have been well controlled and will continue current regimen. No reports of chest pain or shortness of breath noted. 07/31/2022 Patient is seen today continued on antibiotics in the form of history on exam and urine cultures finalized showing E. coli with sensitivities. Infectious disease following recommending repeat urinalysis and is negative may possibly go home without antibiotics. Recommending another 24 hours on IV antibiotics. Patient is afebrile with no reports of chest pain or shortness of breath noted. Patient tolerating diet and will continue current regimen of sliding scale with Accu-Cheks before meals and at bedtime. Have resumed home medications of oral diabetic agents. Encouraged increased activity as tolerated. Review of systems: Constitutional: No reports of fatigue, fever, or chills Cardiovascular: No reports of chest pain or palpitations Respiratory: No reports of shortness of breath or cough GI: No reports of nausea, vomiting, or diarrhea : No reports of dysuria or retention Neurovascular: No reports of weakness or numbness All medications have been reviewed Active Medications Acetaminophen (Acetaminophen Tab 325 Mg Tab) 650 mg PO Q6HR PRN PRN Reason: Mild Pain or Fever > 100.5 Alprazolam (Alprazolam 1 Mg Tab) 1 mg PO QID [facility] Last Admin: 07/31/22 22:06 Dose: 1 mg Ascorbic Acid (Ascorbic Acid 500 Mg Tab) 2,000 mg PO DAILY [facility] Last Admin: 07/31/22 08:55 Dose: 2,000 mg Atorvastatin Calcium (Atorvastatin 20 Mg Tab) 20 mg PO DAILY [facility] Last Admin: 07/31/22 08:54 Dose: 20 mg Baclofen (Baclofen 10 Mg Tab) 10 mg PO BID PRN PRN Reason: Muscle Pain Cholecalciferol (Cholecalciferol 125 Mcg (5000 Iu) Tablet) 125 mcg PO DAILY [facility] Last Admin: 07/31/22 08:56 Dose: 125 mcg Dextrose/Water (Dextrose 50% Syringe 50 Ml) 25 ml IVP PER PROTOCOL PRN; Protocol PRN Reason: Hypoglycemia Dextrose/Water (Dextrose 50% Syringe 50 Ml) 50 ml IVP PER PROTOCOL PRN; Protocol PRN Reason: Hypoglycemia Furosemide (Furosemide 20 Mg Tab) 20 mg PO DAILY [facility] Last Admin: 07/31/22 08:56 Dose: 20 mg Glipizide (Glipizide 10 Mg Tab) 20 mg PO DAILY [facility] Last Admin: 07/31/22 13:00 Dose: 20 mg Sodium Chloride (Saline 0.9%) 1,000 mls @ 75 mls/hr IV .[id number] [facility] Last Admin: 07/31/22 23:26 Dose: 75 mls/hr Aztreonam 2 gm/ Sodium (Chloride) 100 mls @ 33.3 mls/hr IVPB Q8HR [facility]; Protocol Last Admin: 07/31/22 23:22 Dose: 33.3 mls/hr Insulin Aspart (Insulin Aspart (Novolog) 100 Unit/Ml Vial) 0 unit SQ ACHS [facility]; Protocol Last Admin: 07/31/22 22:06 Dose: 2 unit Morphine Sulfate (Morphine Sulfate Er 15 Mg Tablet) 15 mg PO DAILY [facility]; Protocol Last Admin: 07/31/22 09:13 Dose: 15 mg Multivitamins (Multivitamins, Thera 1 Each Tab) 1 each PO DAILY [facility] Last Admin: 07/31/22 08:56 Dose: 1 each Non-Formulary Medication (Dulaglutide [Trulicity]) 0.75 mg SQ MO [facility] Olanzapine (Olanzapine 5 Mg Tab) 5 mg PO DAILY [facility] Last Admin: 07/31/22 08:56 Dose: 5 mg Ondansetron HCl (Ondansetron 4 Mg/2 Ml Vial) 4 mg IVP Q8HR PRN PRN Reason: Nausea And Vomiting Last Admin: 07/31/22 23:22 Dose: 4 mg Oxycodone/Acetaminophen (Oxycodone-Apap 10-325mg 1 Each Tab) 1 each PO 5XD PRN PRN Reason: Pain Last Admin: 07/31/22 23:22 Dose: 1 each Pantoprazole Sodium (Pantoprazole 40 Mg Tablet) 40 mg PO AC-BRKFST [facility] Last Admin: 07/31/22 06:38 Dose: 40 mg Pioglitazone HCl (Pioglitazone 30 Mg Tab) 30 mg PO DAILY [facility] Last Admin: 07/31/22 13:00 Dose: 30 mg Pseudoephedrine HCl (Pseudoephedrine 12hr 120 Mg Tablet.Er) 120 mg PO BID [facility] Last Admin: 07/31/22 22:06 Dose: 120 mg Senna/Docusate Sodium (Sennosides-Docusate Sodium 1 Each Tab) 1 each PO DAILY [facility] Last Admin: 07/31/22 08:56 Dose: 1 each Valacyclovir HCl (Valacyclovir Hcl 1,000 Mg Tablet) 1,000 mg PO DAILY [facility]; Protocol Last Admin: 07/31/22 08:55 Dose: 1,000 mg Physical exam: Gen: This is a 46-year-old female who is awake, alert and oriented 3, well- developed, well-nourished, morbidly obese HEENT: Head is atraumatic, normocephalic. Pupils equal, round. Sclerae is anicteric. NECK: Supple. No JVD. No lymphadenopathy. No thyromegaly. LUNGS: Clear to auscultation. No wheezes or rhonchi. No intercostal retractions. HEART: Regular rate and rhythm. No murmur. ABDOMEN: Soft. Bowel sounds are present. No masses. Lower abdominal tenderness on palpation. Bilateral CVA tenderness noted on palpation EXTREMITIES: No pedal edema. No calf tenderness. NEUROLOGICAL: Patient is awake, alert and oriented x3. Cranial nerves 2 through 12 are grossly intact. Assessment: Acute urinary tract infection, present on admission with possible pyelonephritis. Multiple antibiotic allergies Prior history of UTIs Elevated lipase level 325 Hypertension Hyperlipidemia Diabetes type 2 [id number]-miodapxyp Chronic pain/fibromyalgia Morbid obesity with BMI 45.8 History of seizure disorder History of CVA/TIA Left foot drop History of herpes simplex type II, chronically takes Valtrex Anxiety Prior history of cholecystectomy DVT prophylaxis heparin subcu Full code Plan: Patient will be continued on IV aztreonam and anxiety following recommending another 24 hours on IV antibiotics and repeat urinalysis and if negative may consider going home without antibiotics. Repeat UA ordered Recommend continue with Accu-Cheks before meals and at bedtime and will use sliding scale as needed, continue consistent carb diet , have resumed home oral diabetic agents Encouraged to increase activity as tolerated Will follow-up with Dr. Peraza infectious disease in the a.m. and discussed discharge planning Due to multiple complex medical issues, prognosis is guarded Possible discharge in 24 hours The impression and plan of care has been dictated as a scribe by Oliva Stafford, Nurse Practitioner as directed. Dr. Brendon MD I have performed a history and examination and MDM of this patient, discussed the same with the dictator, and will be documented as a scribe. Based on total visit time, I have performed more than 50% of the visit. Objective - Vital Signs Vital signs: Vital Signs Temp 97.5 F L 07/31/22 07:00 Pulse 98 07/31/22 07:00 Resp 16 07/31/22 07:00 BP 142/87 07/31/22 07:00 Pulse Ox 95 07/31/22 07:00 FiO2 Intake & Output 07/30/22 07/31/22 07/31/22 18:59 06:59 18:59 Intake Total 600 450 Balance 600 450 Intake: Intake, IV Titration 200 Amount Aztreonam 2 gm In Sodium 200 Chloride 0.9% 100 ml @ 33 .3 mls/hr IVPB Q8HR [facility] Rx#:[id number] Oral 600 250 Other: Voiding Method Toilet # Voids 4 - Labs CBC & Chem 7: 07/30/22 06:58 07/30/22 06:58 Labs: Abnormal Lab Results - Last 24 Hours (Table) 07/30/22 07/30/22 07/30/22 Range/Units 06:58 06:58 12:13 WBC 4.11 L (4.50-10.00) X 10*3/uL MCHC 31.8 L (32.0-37.0) g/dL Lymphocytes # 0.60 L (0.90-5.00) X 10*3/uL Eosinophils # 0 L (0.04-0.35) X 10*3/uL BUN/Creatinine Ratio 22.12 H (12.00-20.00) Ratio Glucose 171 H (70-110) mg/dL POC Glucose (mg/dL) 191 H (70-110) mg/dL 07/30/22 07/30/22 07/31/22 Range/Units 17:06 21:09 06:08 WBC (4.50-10.00) X 10*3/uL MCHC (32.0-37.0) g/dL Lymphocytes # (0.90-5.00) X 10*3/uL Eosinophils # (0.04-0.35) X 10*3/uL BUN/Creatinine Ratio (12.00-20.00) Ratio Glucose (70-110) mg/dL POC Glucose (mg/dL) 145 H 196 H 230 H (70-110) mg/dL Microbiology - Last 24 Hours (Table) 07/28/22 13:21 Urine Culture - Final Urine,Voided Escherichia coli
[2022-08-01] MEDS: PANTOPRAZOLE 40 MG TABLET PO SCH (06:00)
[2022-08-01 06:07] LABS: Glucose,Whole Blood 167 mg/dL (70-110)
[2022-08-01] MEDS: INSULIN ASPART (NovoLOG) 100 UNIT/ML VIAL SQ SCH ×4 (06:35→22:50)
[2022-08-01] MEDS: ALPRAZolam 1 MG TAB PO SCH ×4 (08:33→21:21)
[2022-08-01] MEDS: MORPHINE SULFATE ER 15 MG TABLET PO SCH (08:33)
[2022-08-01] MEDS: ASCORBIC ACID 500 MG TAB PO SCH (08:33)
[2022-08-01] MEDS: ATORVASTATIN 20 MG TAB PO SCH (08:34)
[2022-08-01] MEDS: MULTIVITAMINS, THERA 1 EACH TAB PO SCH (08:34)
[2022-08-01] MEDS: OLANZapine 5 MG TAB PO SCH (08:34)
[2022-08-01] MEDS: PIOGLITAZONE 30 MG TAB PO SCH (08:34)
[2022-08-01] MEDS: SENNOSIDES-DOCUSATE SODIUM 1 EACH TAB PO SCH (08:35)
[2022-08-01] MEDS: CHOLECALCIFEROL 125 MCG (5000 IU) TABLET PO SCH (08:35)
[2022-08-01] MEDS: glipiZIDE 10 MG TAB PO SCH (08:35)
[2022-08-01] MEDS: FUROSEMIDE 20 MG TAB PO SCH (08:35)
[2022-08-01] MEDS: valACYclovir HCL 1,000 MG TABLET PO SCH (08:35)
[2022-08-01] MEDS: PSEUDOEPHEDRINE 12HR 120 MG TABLET.ER PO SCH ×2 (08:35→21:16)
[2022-08-01] MEDS: oxyCODONE-APAP 10-325MG 1 EACH TAB PO PRN ×3 (09:37→21:16)
[2022-08-01] MEDS: NON FORMULARY DRUG (Dulaglutide [Trulicity] 0.75 MG/0.5 ML Each) SQ SCH (10:15)
[2022-08-01] MEDS: AZTREONAM 2 GM in SODIUM CHLORIDE 0.9% 100 ML IVPB SCH ×2 (10:36→18:01)
[2022-08-01 12:01] LABS: Glucose,Whole Blood 232 mg/dL (70-110)
[2022-08-01] MEDS ORDERED: NITROFURANTOIN MONOHYD/M-CRYST 100 MG CAP PO SCH (12:15)
[2022-08-01] MEDS: SODIUM CHLORIDE 0.9% 1,000 ML IV SCH (12:55)
[2022-08-01] MEDS ORDERED: ALPRAZolam 0.5 MG TAB PO ONE (14:45)
--- NOTE | 2022-08-01 16:38 | P.PN ---
Subjective Progress Note Date: 08/01/22 Patient is a 46-year-old female with a known history of hypertension, diabetes type 2, fibromyalgia, history of CVA/TIA, left foot drop, history of seizure disorder, anxiety and prior history of urinary tract infection and multiple antibiotic allergies presents to ER with the complaints of lower abdominal discomfort, nausea, bilateral flank pain and night sweats and hot flashes which is similar to her prior urinary tract infection. Denies any dysuria otherwise. She went to see her primary care physician and was recommended to go to ER. Denies any complaints of chest pain or shortness of breath. No cough or sputum production. No headache or dizziness or lightheadedness. Laboratory test showed sodium 140 potassium 4.5 chloride 104 bicarb is 31 BUN 21 creatinine 0.82 and blood sugar is 111 Loading episode not elevated. Lipase level is 324. Urinalysis showed cloudy with 2+ protein trace ketones, moderate leukocyte esterase with elevated RBCs and WBCs. Squamous epithelial cells 2. 07/29/2022 Patient is seen and evaluated in follow-up today continues to report bilateral CVA tenderness and flank pain and is maintained on IV antibiotics. Patient was continued on gentamicin and antibiotics being transitioned to IV aztreonam with infectious disease following. Patient is afebrile and currently awaiting for cultures to finalize. Patient having extreme concerns of her home medications not being reordered including her Actos and glipizide and informed her we will cover with sliding scale and Accu-Cheks before meals and at bedtime for now. Encouraged increased activity as tolerated and encouraged oral intake. Recommend consistent carb diet 07/30/2022 Patient is seen and evaluated today continues on IV antibiotics in the form of aztreonam with infectious disease following and will likely require IV antibiotic therapy in the outpatient setting. Patient has a midline although needs case management/social work to verify coverage as IV antibiotics are not covered benefit in the home and will need to arrange for outpatient at the infusion center. Patient is currently afebrile continues with her chronic pain and reports back pain with tenderness. Patient's blood sugars have been well controlled and will continue current regimen. No reports of chest pain or shortness of breath noted. 07/31/2022 Patient is seen today continued on antibiotics in the form of history on exam and urine cultures finalized showing E. coli with sensitivities. Infectious disease following recommending repeat urinalysis and is negative may possibly go home without antibiotics. Recommending another 24 hours on IV antibiotics. Patient is afebrile with no reports of chest pain or shortness of breath noted. Patient tolerating diet and will continue current regimen of sliding scale with Accu-Cheks before meals and at bedtime. Have resumed home medications of oral diabetic agents. Encouraged increased activity as tolerated. 08/01/2022 Patient is seen and evaluated in follow-up this morning maintained on IV antibiotics and midline is not functioning properly and urinalysis was repeated showing some improvement in anxiety recommendations for Macrobid. Patient was given a dose of Macrobid and started feeling hot and itchy and has been discontinued. Patient will receive another midline was social work following and arranging for IV antibiotics in the form of Invanz once daily for the next 1 week in the office. Patient will be discharged in 24 hours after ensuring that IV antibiotics are arranged. Review of systems: Constitutional: No reports of fatigue, fever, or chills Cardiovascular: No reports of chest pain or palpitations Respiratory: No reports of shortness of breath or cough GI: No reports of nausea, vomiting, or diarrhea : No reports of dysuria or retention Neurovascular: No reports of weakness or numbness All medications have been reviewed Active Medications Acetaminophen (Acetaminophen Tab 325 Mg Tab) 650 mg PO Q6HR PRN PRN Reason: Mild Pain or Fever > 100.5 Alprazolam (Alprazolam 1 Mg Tab) 1 mg PO QID [facility] Last Admin: 08/01/22 13:00 Dose: Not Given Ascorbic Acid (Ascorbic Acid 500 Mg Tab) 2,000 mg PO DAILY [facility] Last Admin: 08/01/22 08:33 Dose: 2,000 mg Atorvastatin Calcium (Atorvastatin 20 Mg Tab) 20 mg PO DAILY [facility] Last Admin: 08/01/22 08:34 Dose: 20 mg Baclofen (Baclofen 10 Mg Tab) 10 mg PO BID PRN PRN Reason: Muscle Pain Cholecalciferol (Cholecalciferol 125 Mcg (5000 Iu) Tablet) 125 mcg PO DAILY [facility] Last Admin: 08/01/22 08:35 Dose: 125 mcg Dextrose/Water (Dextrose 50% Syringe 50 Ml) 25 ml IVP PER PROTOCOL PRN; Protocol PRN Reason: Hypoglycemia Dextrose/Water (Dextrose 50% Syringe 50 Ml) 50 ml IVP PER PROTOCOL PRN; Protocol PRN Reason: Hypoglycemia Furosemide (Furosemide 20 Mg Tab) 20 mg PO DAILY [facility] Last Admin: 08/01/22 08:35 Dose: 20 mg Glipizide (Glipizide 10 Mg Tab) 20 mg PO DAILY [facility] Last Admin: 08/01/22 08:35 Dose: 20 mg Sodium Chloride (Saline 0.9%) 1,000 mls @ 75 mls/hr IV .[id number] [facility] Last Admin: 08/01/22 12:55 Dose: Not Given Ertapenem 1 gm/ Sodium (Chloride) 50 mls @ 100 mls/hr IVPB DAILY [facility]; Protocol Insulin Aspart (Insulin Aspart (Novolog) 100 Unit/Ml Vial) 0 unit SQ ACHS [facility]; Protocol Last Admin: 08/01/22 12:15 Dose: 4 unit Morphine Sulfate (Morphine Sulfate Er 15 Mg Tablet) 15 mg PO DAILY [facility]; Protocol Last Admin: 08/01/22 08:33 Dose: 15 mg Multivitamins (Multivitamins, Thera 1 Each Tab) 1 each PO DAILY [facility] Last Admin: 08/01/22 08:34 Dose: 1 each Non-Formulary Medication (Dulaglutide [Trulicity]) 0.75 mg SQ MO [facility] Last Admin: 08/01/22 10:15 Dose: Not Given Olanzapine (Olanzapine 5 Mg Tab) 5 mg PO DAILY [facility] Last Admin: 08/01/22 08:34 Dose: 5 mg Ondansetron HCl (Ondansetron 4 Mg/2 Ml Vial) 4 mg IVP Q8HR PRN PRN Reason: Nausea And Vomiting Last Admin: 07/31/22 23:22 Dose: 4 mg Oxycodone/Acetaminophen (Oxycodone-Apap 10-325mg 1 Each Tab) 1 each PO 5XD PRN PRN Reason: Pain Last Admin: 08/01/22 14:54 Dose: 1 each Pantoprazole Sodium (Pantoprazole 40 Mg Tablet) 40 mg PO AC-BRKFST [facility] Last Admin: 08/01/22 06:00 Dose: 40 mg Pioglitazone HCl (Pioglitazone 30 Mg Tab) 30 mg PO DAILY [facility] Last Admin: 08/01/22 08:34 Dose: 30 mg Pseudoephedrine HCl (Pseudoephedrine 12hr 120 Mg Tablet.Er) 120 mg PO BID [facility] Last Admin: 08/01/22 08:35 Dose: 120 mg Senna/Docusate Sodium (Sennosides-Docusate Sodium 1 Each Tab) 1 each PO DAILY [facility] Last Admin: 08/01/22 08:35 Dose: 1 each Valacyclovir HCl (Valacyclovir Hcl 1,000 Mg Tablet) 1,000 mg PO DAILY [facility]; Protocol Last Admin: 08/01/22 08:35 Dose: 1,000 mg Physical exam: Gen: This is a 46-year-old female who is awake, alert and oriented 3, well- developed, well-nourished, morbidly obese HEENT: Head is atraumatic, normocephalic. Pupils equal, round. Sclerae is anicteric. NECK: Supple. No JVD. No lymphadenopathy. No thyromegaly. LUNGS: Clear to auscultation. No wheezes or rhonchi. No intercostal retractions. HEART: Regular rate and rhythm. No murmur. ABDOMEN: Soft. Bowel sounds are present. No masses. Mild lower abdominal discomfort on palpation EXTREMITIES: No pedal edema. No calf tenderness. NEUROLOGICAL: Patient is awake, alert and oriented x3. Cranial nerves 2 through 12 are grossly intact. Assessment: Acute urinary tract infection, present on admission with possible p yelonephritis. Culture showing E. coli Multiple antibiotic allergies Prior history of UTIs Elevated lipase level 325 Hypertension Hyperlipidemia Diabetes type 2 uer-jumacms-icsbhykly Chronic pain/fibromyalgia Morbid obesity with BMI 45.8 History of seizure disorder History of CVA/TIA Left foot drop History of herpes simplex type II, chronically takes Valtrex Anxiety Prior history of cholecystectomy DVT prophylaxis heparin subcu Full code Plan: Repeat urinalysis was done and patient was cleared by infectious disease to go home on Macrobid. Twice daily for 1 week and patient took a dose and started reporting she was feeling hot and itchy and discussed with infectious disease as there are no other choices for antibiotics by mouth and will receive another midline as her current midline is not functioning properly Social work following in arranging for IV antibiotics in the office and to ensure coverage. Patient will receive a midline and will be continued on IV Invanz 1 g daily for the next 1 week Will continue to monitor blood sugars closely and resume home medications Encourage increased activity as tolerated Due to multiple complex medical issues, prognosis is guarded Patient will be discharged in 24 hours The impression and plan of care has been dictated by Oliva Stafford, Nurse Practitioner as directed. Dr. Amado MD I have performed a history and examination and MDM of this patient, discussed the same with the dictator, and agree with the dictator's assessment and plan as written ,documented as a scribe. Based on total visit time, I have performed more than 50% of the visit. Objective - Vital Signs Vital signs: Vital Signs Temp 98.0 F 08/01/22 14:00 Pulse 97 08/01/22 14:00 Resp 20 08/01/22 14:00 BP 115/75 08/01/22 14:00 Pulse Ox 100 08/01/22 14:00 FiO2 Intake & Output 07/31/22 08/01/22 08/01/22 18:59 06:59 18:59 Intake Total 236 1350 598 Balance 236 1350 598 Intake: Intake, IV Titration 1100 Amount Aztreonam 2 gm In Sodium 100 Chloride 0.9% 100 ml @ 33 .3 mls/hr IVPB Q8HR [facility] Rx#:[id number] Sodium Chloride 0.9% 1, 1000 000 ml @ 75 mls/hr IV . [id number] [facility] Rx#:[id number] Oral 236 250 598 Other: Voiding Method Toilet Toilet Toilet # Voids 3 - Labs CBC & Chem 7: 07/30/22 06:58 07/30/22 06:58 Labs: Abnormal Lab Results - Last 24 Hours (Table) 07/31/22 08/01/22 08/01/22 Range/Units 21:26 06:02 11:54 POC Glucose (mg/dL) 177 H 167 H 232 H (70-110) mg/dL
[2022-08-01] MEDS: ERTAPENEM 1 GM in SODIUM CHLORIDE 0.9% 50 ML IVPB SCH (17:32)
[2022-08-01 17:47] LABS: Glucose,Whole Blood 154 mg/dL (70-110)
[2022-08-01 22:26] LABS: Glucose,Whole Blood 210 mg/dL (70-110)
--- NOTE | 2022-08-01 22:50 | P.PN ---
Subjective Progress Note Date: 08/01/22 Principal diagnosis: Urinary tract infection and multiple antibiotic ALLERGIES Patient is a 46-year-old female with a past medical history significant for recurrent UTI the patient did have multiple antibiotic ALLERGIES presented to the hospital with burning of urine suprapubic pain concerning for symptomatic UTI on today's evaluation that is 08/01/2022, the patient continues to be afebrile, patient urinary symptom has slightly decreased in intensity patient did have some nausea but no vomiting no chest pain shortness of breath or cough Objective - Vital Signs Vital signs: Vital Signs Temp 97.4 F L 08/01/22 07:41 Pulse 92 08/01/22 07:41 Resp 20 08/01/22 07:41 BP 123/82 08/01/22 07:41 Pulse Ox 100 08/01/22 07:41 FiO2 Intake & Output 07/31/22 08/01/22 08/01/22 18:59 06:59 18:59 Intake Total 236 1350 480 Balance 236 1350 480 Intake: Intake, IV Titration 1100 Amount Aztreonam 2 gm In Sodium 100 Chloride 0.9% 100 ml @ 33 .3 mls/hr IVPB Q8HR [facility] Rx#:[id number] Sodium Chloride 0.9% 1, 1000 000 ml @ 75 mls/hr IV . [id number] [facility] Rx#:[id number] Oral 236 250 480 Other: Voiding Method Toilet Toilet Toilet # Voids 3 - Exam GENERAL DESCRIPTION: Middle-age female lying in bed in no distress RESPIRATORY SYSTEM: Unlabored breathing , decreased breath sounds at bases HEART: S1 S2 regular rate and rhythm , ABDOMEN: Soft , no tenderness EXTREMITIES: No edema feet - Labs CBC & Chem 7: 07/30/22 06:58 07/30/22 06:58 Labs: Abnormal Lab Results - Last 24 Hours (Table) 07/31/22 07/31/22 07/31/22 Range/Units 11:19 12:29 21:26 POC Glucose (mg/dL) 179 H 177 H (70-110) mg/dL Urine Appearance Cloudy H (Clear) Urine Protein Trace H (Negative) Ur Leukocyte Esterase Large H (Negative) Urine WBC 18 H (0-5) /hpf Urine Bacteria Rare H (None) /hpf Urine Mucus Rare H (None) /hpf 08/01/22 Range/Units 06:02 POC Glucose (mg/dL) 167 H (70-110) mg/dL Urine Appearance (Clear) Urine Protein (Negative) Ur Leukocyte Esterase (Negative) Urine WBC (0-5) /hpf Urine Bacteria (None) /hpf Urine Mucus (None) /hpf Assessment and Plan (1) Allergy to multiple antibiotics Current Visit: Yes Status: Acute Code(s): Z88.1 - ALLERGY STATUS TO OTHER ANTIBIOTIC AGENTS SNOMED Code(s): 502077483 (2) Urinary tract infection Current Visit: Yes Status: Acute Code(s): N39.0 - URINARY TRACT INFECTION, SITE NOT SPECIFIED SNOMED Code(s): 71553022 Plan: 1patient presented to hospital with significant burning of urine suprapubic and flank pain concerning for symptomatic urinary tract infection more likely cystitis clinic not behaving as pyelonephritis in this patient with no fever or elevated white count ultrasound abdomen did not show any hydronephrosis or obstructive uropathy. 2patient with multiple antibiotic allergies that would limit the number of antibiotics safe to use. 3patient urine has been finalized with E. coli which is a sensitive pathogen, patient has lost her midline patient ALLERGY to Macrobid has been abdominal pain which is not a true ALLERGY patient will be given a dose of Macrobid if she tolerates it plan is to finish treatment with a 7 day course of Macrobid however if any problems with the oral Macrobid as they do not have any other oral option available antibiotic will be switched over to Invanz and plan for a 7 day course of IV Invanz in the outpatient setting this was discussed in detail with the patient nurse as well as with the admitting team Time with Patient: Less than 30
[2022-08-02 06:14] LABS: Glucose,Whole Blood 155 mg/dL (70-110)
[2022-08-02] MEDS: SODIUM CHLORIDE 0.9% 1,000 ML IV SCH ×2 (06:16→17:57)
[2022-08-02] MEDS: INSULIN ASPART (NovoLOG) 100 UNIT/ML VIAL SQ SCH ×4 (06:19→22:07)
[2022-08-02] MEDS: PANTOPRAZOLE 40 MG TABLET PO SCH (06:37)
[2022-08-02] MEDS: ONDANSETRON 4 MG/2 ML VIAL IVP PRN (08:47)
[2022-08-02] MEDS: PSEUDOEPHEDRINE 12HR 120 MG TABLET.ER PO SCH ×2 (08:48→22:08)
[2022-08-02] MEDS: ERTAPENEM 1 GM in SODIUM CHLORIDE 0.9% 50 ML IVPB SCH (08:48)
[2022-08-02] MEDS: ATORVASTATIN 20 MG TAB PO SCH (08:48)
[2022-08-02] MEDS: ALPRAZolam 1 MG TAB PO SCH ×4 (08:48→22:47)
[2022-08-02] MEDS: FUROSEMIDE 20 MG TAB PO SCH (08:49)
[2022-08-02] MEDS: OLANZapine 5 MG TAB PO SCH (08:49)
[2022-08-02] MEDS: PIOGLITAZONE 30 MG TAB PO SCH (08:49)
[2022-08-02] MEDS: glipiZIDE 10 MG TAB PO SCH (08:49)
[2022-08-02] MEDS: MULTIVITAMINS, THERA 1 EACH TAB PO SCH (08:49)
[2022-08-02] MEDS: ASCORBIC ACID 500 MG TAB PO SCH (08:49)
[2022-08-02] MEDS: CHOLECALCIFEROL 125 MCG (5000 IU) TABLET PO SCH (08:49)
[2022-08-02] MEDS: MORPHINE SULFATE ER 15 MG TABLET PO SCH (08:49)
[2022-08-02] MEDS: SENNOSIDES-DOCUSATE SODIUM 1 EACH TAB PO SCH (08:49)
[2022-08-02] MEDS: valACYclovir HCL 1,000 MG TABLET PO SCH (08:49)
[2022-08-02] MEDS: oxyCODONE-APAP 10-325MG 1 EACH TAB PO PRN ×4 (09:00→22:08)
[2022-08-02 12:13] LABS: Glucose,Whole Blood 138 mg/dL (70-110)
[2022-08-02 17:01] LABS: Glucose,Whole Blood 145 mg/dL (70-110)
--- NOTE | 2022-08-02 18:59 | P.PN ---
Subjective Progress Note Date: 08/02/22 Principal diagnosis: Urinary tract infection and multiple antibiotic ALLERGIES Patient is a 46-year-old female with a past medical history significant for recurrent UTI the patient did have multiple antibiotic ALLERGIES presented to the hospital with burning of urine suprapubic pain concerning for symptomatic UTI on today's evaluation that is 08/02/2022, the patient remains to be afebrile, patient urinary symptom has decreased in intensity patient still have some n ausea but no vomiting no abdominal pain no diarrhea patient seemed to have a problem with Macrobid yesterday which was discontinued seemed to have been tolerating Invanz Objective - Vital Signs Vital signs: Vital Signs Temp 97.5 F L 08/02/22 08:00 Pulse 96 08/02/22 08:00 Resp 20 08/02/22 08:00 BP 146/93 08/02/22 08:00 Pulse Ox 97 08/02/22 08:00 FiO2 Intake & Output 08/01/22 08/02/22 08/02/22 18:59 06:59 18:59 Intake Total 598 480 Balance 598 480 Intake: Oral 598 480 Other: Voiding Method Toilet Toilet # Voids 2 - Exam GENERAL DESCRIPTION: Middle-age female lying in bed in no distress RESPIRATORY SYSTEM: Unlabored breathing , decreased breath sounds at bases HEART: S1 S2 regular rate and rhythm , ABDOMEN: Soft , no tenderness EXTREMITIES: No edema feet - Labs CBC & Chem 7: 07/30/22 06:58 07/30/22 06:58 Labs: Abnormal Lab Results - Last 24 Hours (Table) 08/01/22 08/01/22 08/01/22 Range/Units 11:54 17:43 22:24 POC Glucose (mg/dL) 232 H 154 H 210 H (70-110) mg/dL 08/02/22 Range/Units 06:12 POC Glucose (mg/dL) 155 H (70-110) mg/dL Assessment and Plan (1) Allergy to multiple antibiotics Current Visit: Yes Status: Acute Code(s): Z88.1 - ALLERGY STATUS TO OTHER ANTIBIOTIC AGENTS SNOMED Code(s): 540517950 (2) Urinary tract infection Current Visit: Yes Status: Acute Code(s): N39.0 - URINARY TRACT INFECTION, SITE NOT SPECIFIED SNOMED Code(s): 72172521 Plan: 1patient presented to hospital with significant burning of urine suprapubic and flank pain concerning for symptomatic urinary tract infection more likely cystitis clinic not behaving as pyelonephritis in this patient with no fever or elevated white count ultrasound abdomen did not show any hydronephrosis or obstructive uropathy. 2patient with multiple antibiotic allergies that would limit the number of antibiotics safe to use. 3patient urine has been finalized with E. coli which is a sensitive pathogen, patient did have multiple antibiotic ALLERGIES and apparently did not tolerate Macrobid yesterday seems to be doing well on Invanz currently waiting for outpatient Invanz arrangement for discharge Time with Patient: Less than 30
[2022-08-02 21:16] LABS: Glucose,Whole Blood 208 mg/dL (70-110)
--- NOTE | 2022-08-03 01:48 | P.PN ---
Subjective Progress Note Date: 08/02/22 Patient is a 46-year-old female with a known history of hypertension, diabetes type 2, fibromyalgia, history of CVA/TIA, left foot drop, history of seizure disorder, anxiety and prior history of urinary tract infection and multiple antibiotic allergies presents to ER with the complaints of lower abdominal discomfort, nausea, bilateral flank pain and night sweats and hot flashes which is similar to her prior urinary tract infection. Denies any dysuria otherwise. She went to see her primary care physician and was recommended to go to ER. Denies any complaints of chest pain or shortness of breath. No cough or sputum production. No headache or dizziness or lightheadedness. Laboratory test showed sodium 140 potassium 4.5 chloride 104 bicarb is 31 BUN 21 creatinine 0.82 and blood sugar is 111 Loading episode not elevated. Lipase level is 324. Urinalysis showed cloudy with 2+ protein trace ketones, moderate leukocyte esterase with elevated RBCs and WBCs. Squamous epithelial cells 2. 07/29/2022 Patient is seen and evaluated in follow-up today continues to report bilateral CVA tenderness and flank pain and is maintained on IV antibiotics. Patient was continued on gentamicin and antibiotics being transitioned to IV aztreonam with infectious disease following. Patient is afebrile and currently awaiting for cultures to finalize. Patient having extreme concerns of her home medications not being reordered including her Actos and glipizide and informed her we will cover with sliding scale and Accu-Cheks before meals and at bedtime for now. Encouraged increased activity as tolerated and encouraged oral intake. Recommend consistent carb diet 07/30/2022 Patient is seen and evaluated today continues on IV antibiotics in the form of aztreonam with infectious disease following and will likely require IV antibiotic therapy in the outpatient setting. Patient has a midline although needs case management/social work to verify coverage as IV antibiotics are not covered benefit in the home and will need to arrange for outpatient at the infusion center. Patient is currently afebrile continues with her chronic pain and reports back pain with tenderness. Patient's blood sugars have been well controlled and will continue current regimen. No reports of chest pain or shortness of breath noted. 07/31/2022 Patient is seen today continued on antibiotics in the form of history on exam and urine cultures finalized showing E. coli with sensitivities. Infectious disease following recommending repeat urinalysis and is negative may possibly go home without antibiotics. Recommending another 24 hours on IV antibiotics. Patient is afebrile with no reports of chest pain or shortness of breath noted. Patient tolerating diet and will continue current regimen of sliding scale with Accu-Cheks before meals and at bedtime. Have resumed home medications of oral diabetic agents. Encouraged increased activity as tolerated. 08/01/2022 Patient is seen and evaluated in follow-up this morning maintained on IV antibiotics and midline is not functioning properly and urinalysis was repeated showing some improvement in anxiety recommendations for Macrobid. Patient was given a dose of Macrobid and started feeling hot and itchy and has been discontinued. Patient will receive another midline was social work following and arranging for IV antibiotics in the form of Invanz once daily for the next 1 week in the office. Patient will be discharged in 24 hours after ensuring that IV antibiotics are arranged. 08/02/2022 Patient is seen and evaluated follow-up continued on IV antibiotics and has received a midline. Patient has been maintained on IV Invanz and will continue for 1 week in the outpatient setting. Social work following and has submitted to the insurance for approval although continuing to await authorization for coverage of outpatient antibiotics. Patient will be discharged once authorization is obtained. Patient currently afebrile with no reports of chest pain or shortness of breath noted. Patient tolerating diet with no reports of nausea or vomiting and will continue to monitor Accu-Cheks before meals and at bedtime. Review of systems: Constitutional: No reports of fatigue, fever, or chills Cardiovascular: No reports of chest pain or palpitations Respiratory: No reports of shortness of breath or cough GI: No reports of nausea, vomiting, or diarrhea : No reports of dysuria or retention Neurovascular: No reports of weakness or numbness All medications have been reviewed Physical exam: Gen: This is a 46-year-old female who is awake, alert and oriented 3, well- developed, well-nourished, morbidly obese HEENT: Head is atraumatic, normocephalic. Pupils equal, round. Sclerae is anicteric. NECK: Supple. No JVD. No lymphadenopathy. No thyromegaly. LUNGS: Clear to auscultation. No wheezes or rhonchi. No intercostal retractions. HEART: Regular rate and rhythm. No murmur. ABDOMEN: Soft. Bowel sounds are present. No masses. Mild lower abdominal discomfort on palpation EXTREMITIES: No pedal edema. No calf tenderness. NEUROLOGICAL: Patient is awake, alert and oriented x3. Cranial nerves 2 through 12 are grossly intact. Assessment: Acute urinary tract infection, present on admission with possible pyelonephritis. Culture showing E. coli Multiple antibiotic allergies Prior history of UTIs Elevated lipase level 325 Hypertension Hyperlipidemia Diabetes type 2 [id number] Chronic pain/fibromyalgia Morbid obesity with BMI 45.8 History of seizure disorder History of CVA/TIA Left foot drop History of herpes simplex type II, chronically takes Valtrex Anxiety Prior history of cholecystectomy DVT prophylaxis heparin subcu Full code Plan: Repeat urinalysis was done and patient was cleared by infectious disease and he has received a midline will be continued on IV antibiotics in the form of aztreonam 1 g daily for the next 7 days Social work following in arranging for IV antibiotics in the office and to ensure coverage. Continuing to await insurance authorization at this time. Will continue to monitor blood sugars closely and resume home medications Encourage increased activity as tolerated Due to multiple complex medical issues, prognosis is guarded Patient will be discharged in 24 hours The impression and plan of care has been dictated by Oliva Stafford, Nurse Practitioner as directed. Dr. Amado MD I have performed a history and examination and MDM of this patient, discussed the same with the dictator, and agree with the dictator's assessment and plan as written ,documented as a scribe. Based on total visit time, I have performed more than 50% of the visit. Objective - Vital Signs Vital signs: Vital Signs Temp 97.5 F L 08/02/22 19:33 Pulse 106 H 08/02/22 19:33 Resp 17 08/02/22 19:33 BP 124/76 08/02/22 19:33 Pulse Ox 100 08/02/22 19:33 FiO2 Intake & Output 08/02/22 08/02/22 08/03/22 06:59 18:59 06:59 Intake Total 598 Balance 598 Intake: Oral 598 Other: Voiding Method Toilet Toilet Toilet # Voids 2 1 1 - Labs CBC & Chem 7: 07/30/22 06:58 07/30/22 06:58 Labs: Abnormal Lab Results - Last 24 Hours (Table) 08/02/22 08/02/22 08/02/22 Range/Units 06:12 12:11 16:59 POC Glucose (mg/dL) 155 H 138 H 145 H (70-110) mg/dL 08/02/22 Range/Units 21:14 POC Glucose (mg/dL) 208 H (70-110) mg/dL
[2022-08-03 05:51] LABS: Glucose,Whole Blood 172 mg/dL (70-110)
[2022-08-03] MEDS: SODIUM CHLORIDE 0.9% 1,000 ML IV SCH ×2 (05:55→17:55)
[2022-08-03] MEDS: PANTOPRAZOLE 40 MG TABLET PO SCH (06:15)
[2022-08-03] MEDS: INSULIN ASPART (NovoLOG) 100 UNIT/ML VIAL SQ SCH ×4 (06:15→21:35)
[2022-08-03] MEDS: OLANZapine 5 MG TAB PO SCH (08:09)
[2022-08-03] MEDS: FUROSEMIDE 20 MG TAB PO SCH (08:09)
[2022-08-03] MEDS: SENNOSIDES-DOCUSATE SODIUM 1 EACH TAB PO SCH (08:09)
[2022-08-03] MEDS: ATORVASTATIN 20 MG TAB PO SCH (08:09)
[2022-08-03] MEDS: ASCORBIC ACID 500 MG TAB PO SCH (08:09)
[2022-08-03] MEDS: MULTIVITAMINS, THERA 1 EACH TAB PO SCH (08:09)
[2022-08-03] MEDS: valACYclovir HCL 1,000 MG TABLET PO SCH (08:09)
[2022-08-03] MEDS: CHOLECALCIFEROL 125 MCG (5000 IU) TABLET PO SCH (08:10)
[2022-08-03] MEDS: glipiZIDE 10 MG TAB PO SCH (08:10)
[2022-08-03] MEDS: ALPRAZolam 1 MG TAB PO SCH ×4 (08:10→21:35)
[2022-08-03] MEDS: PIOGLITAZONE 30 MG TAB PO SCH (08:10)
[2022-08-03] MEDS: PSEUDOEPHEDRINE 12HR 120 MG TABLET.ER PO SCH ×2 (08:10→20:08)
[2022-08-03] MEDS: oxyCODONE-APAP 10-325MG 1 EACH TAB PO PRN ×4 (08:15→21:35)
[2022-08-03] MEDS: MORPHINE SULFATE ER 15 MG TABLET PO SCH (08:16)
[2022-08-03] MEDS: ERTAPENEM 1 GM in SODIUM CHLORIDE 0.9% 50 ML IVPB SCH (08:40)
[2022-08-03] MEDS: ONDANSETRON 4 MG/2 ML VIAL IVP PRN ×2 (08:40→17:58)
[2022-08-03 11:49] LABS: Glucose,Whole Blood 164 mg/dL (70-110)
[2022-08-03 17:20] LABS: Glucose,Whole Blood 107 mg/dL (70-110)
--- NOTE | 2022-08-03 18:50 | P.PN ---
Subjective Progress Note Date: 08/03/22 Patient is a 46-year-old female with a known history of hypertension, diabetes type 2, fibromyalgia, history of CVA/TIA, left foot drop, history of seizure disorder, anxiety and prior history of urinary tract infection and multiple antibiotic allergies presents to ER with the complaints of lower abdominal discomfort, nausea, bilateral flank pain and night sweats and hot flashes which is similar to her prior urinary tract infection. Denies any dysuria otherwise. She went to see her primary care physician and was recommended to go to ER. Denies any complaints of chest pain or shortness of breath. No cough or sputum production. No headache or dizziness or lightheadedness. Laboratory test showed sodium 140 potassium 4.5 chloride 104 bicarb is 31 BUN 21 creatinine 0.82 and blood sugar is 111 Loading episode not elevated. Lipase level is 324. Urinalysis showed cloudy with 2+ protein trace ketones, moderate leukocyte esterase with elevated RBCs and WBCs. Squamous epithelial cells 2. 07/29/2022 Patient is seen and evaluated in follow-up today continues to report bilateral CVA tenderness and flank pain and is maintained on IV antibiotics. Patient was continued on gentamicin and antibiotics being transitioned to IV aztreonam with infectious disease following. Patient is afebrile and currently awaiting for cultures to finalize. Patient having extreme concerns of her home medications not being reordered including her Actos and glipizide and informed her we will cover with sliding scale and Accu-Cheks before meals and at bedtime for now. Encouraged increased activity as tolerated and encouraged oral intake. Recommend consistent carb diet 07/30/2022 Patient is seen and evaluated today continues on IV antibiotics in the form of aztreonam with infectious disease following and will likely require IV antibiotic therapy in the outpatient setting. Patient has a midline although needs case management/social work to verify coverage as IV antibiotics are not covered benefit in the home and will need to arrange for outpatient at the infusion center. Patient is currently afebrile continues with her chronic pain and reports back pain with tenderness. Patient's blood sugars have been well controlled and will continue current regimen. No reports of chest pain or shortness of breath noted. 07/31/2022 Patient is seen today continued on antibiotics in the form of history on exam and urine cultures finalized showing E. coli with sensitivities. Infectious disease following recommending repeat urinalysis and is negative may possibly go home without antibiotics. Recommending another 24 hours on IV antibiotics. Patient is afebrile with no reports of chest pain or shortness of breath noted. Patient tolerating diet and will continue current regimen of sliding scale with Accu-Cheks before meals and at bedtime. Have resumed home medications of oral diabetic agents. Encouraged increased activity as tolerated. 08/01/2022 Patient is seen and evaluated in follow-up this morning maintained on IV antibiotics and midline is not functioning properly and urinalysis was repeated showing some improvement in anxiety recommendations for Macrobid. Patient was given a dose of Macrobid and started feeling hot and itchy and has been discontinued. Patient will receive another midline was social work following and arranging for IV antibiotics in the form of Invanz once daily for the next 1 week in the office. Patient will be discharged in 24 hours after ensuring that IV antibiotics are arranged. 08/02/2022 Patient is seen and evaluated follow-up continued on IV antibiotics and has received a midline. Patient has been maintained on IV Invanz and will continue for 1 week in the outpatient setting. Social work following and has submitted to the insurance for approval although continuing to await authorization for coverage of outpatient antibiotics. Patient will be discharged once authorization is obtained. Patient currently afebrile with no reports of chest pain or shortness of breath noted. Patient tolerating diet with no reports of nausea or vomiting and will continue to monitor Accu-Cheks before meals and at bedtime. 08/03/2022 Patient is seen and evaluated in follow-up this morning with no acute issues overnight. Patient does continue on IV antibiotics and has received her midline for outpatient IV antibiotics. Patient will be going in office at the infusion center and currently continuing to wait on insurance authorization. [facility] and [facility] have been working closely together and verified this afternoon there is still no authorization. Also was told it could take up to 72 hours for insurance to respond. Patient is currently afebrile with no reports of nausea or vomiting. Patient is tolerating diet and is continued on consistent carb with Accu-Cheks before meals and at bedtime. All medications have been resumed and will use sliding scale as needed. Patient encouraged to increase activity as tolerated. Review of systems: Constitutional: No reports of fatigue, fever, or chills Cardiovascular: No reports of chest pain or palpitations Respiratory: No reports of shortness of breath or cough GI: No reports of nausea, vomiting, or diarrhea : No reports of dysuria or retention Neurovascular: No reports of weakness or numbness All medications have been reviewed Physical exam: Gen: This is a 46-year-old female who is awake, alert and oriented 3, well- developed, well-nourished, morbidly obese HEENT: Head is atraumatic, normocephalic. Pupils equal, round. Sclerae is anicteric. NECK: Supple. No JVD. No lymphadenopathy. No thyromegaly. LUNGS: Clear to auscultation. No wheezes or rhonchi. No intercostal retractions. HEART: Regular rate and rhythm. No murmur. ABDOMEN: Soft. Bowel sounds are present. No masses. Mild lower abdominal discomfort on palpation EXTREMITIES: No pedal edema. No calf tenderness. NEUROLOGICAL: Patient is awake, alert and oriented x3. Cranial nerves 2 through 12 are grossly intact. Assessment: Acute urinary tract infection, present on admission with possible pyelonephritis. Culture showing E. coli Multiple antibiotic allergies Prior history of UTIs Elevated lipase level 325 Hypertension Hyperlipidemia Diabetes type 2 [id number] Chronic pain/fibromyalgia Morbid obesity with BMI 45.8 History of seizure disorder History of CVA/TIA Left foot drop History of herpes simplex type II, chronically takes Valtrex Anxiety Prior history of cholecystectomy DVT prophylaxis heparin subcu Full code Plan: Recommend continue with IV antibiotics and has received midline with infectious disease following closely. Social work following and working with infusion center to verify insurance authorization for outpatient IV antibiotic therapy Encouraged to increase activity as tolerated Recommend continue monitoring blood sugars closely before meals and at bedtime and will use sliding scale and home medications have been resumed Due to multiple complex medical issues, prognosis is guarded Patient will be discharged once insurance authorization has approved outpatient IV by therapy The impression and plan of care has been dictated by Oliva Stafford, Nurse Practitioner as directed. Dr. Amado MD I have performed a history and examination and MDM of this patient, discussed the same with the dictator, and agree with the dictator's assessment and plan as written ,documented as a scribe. Based on total visit time, I have performed more than 50% of the visit. Objective - Vital Signs Vital signs: Vital Signs Temp 97.9 F 08/03/22 14:00 Pulse 91 03/22/23 14:00 Resp 20 08/03/22 14:00 BP 123/79 08/03/22 14:00 Pulse Ox 99 08/03/22 14:00 FiO2 Intake & Output 08/02/22 08/03/22 08/03/22 18:59 06:59 18:59 Intake Total 598 480 Balance 598 480 Intake: Oral 598 480 Other: Voiding Method Toilet Toilet Toilet # Voids 1 2 2 - Labs CBC & Chem 7: 07/30/22 06:58 07/30/22 06:58 Labs: Abnormal Lab Results - Last 24 Hours (Table) 08/02/22 08/02/22 08/03/22 Range/Units 16:59 21:14 05:50 POC Glucose (mg/dL) 145 H 208 H 172 H (70-110) mg/dL 08/03/22 Range/Units 11:39 POC Glucose (mg/dL) 164 H (70-110) mg/dL
[2022-08-03 20:57] LABS: Glucose,Whole Blood 213 mg/dL (70-110)
--- NOTE | 2022-08-03 21:20 | P.PN ---
Subjective Progress Note Date: 08/03/22 Principal diagnosis: Urinary tract infection and multiple antibiotic ALLERGIES Patient is a 46-year-old female with a past medical history significant for recurrent UTI the patient did have multiple antibiotic ALLERGIES presented to the hospital with burning of urine suprapubic pain concerning for symptomatic UTI on today's evaluation that is 08/03/2022, the patient continues to be afebrile, patient denies any chest pain shortness of breath or cough patient did mention that her knee pain has improved as well as urinary symptoms and no diarrhea still complaining of some nausea Objective - Vital Signs Vital signs: Vital Signs Temp 97.8 F 08/03/22 08:00 Pulse 78 08/03/22 08:00 Resp 20 08/03/22 08:00 BP 143/82 08/03/22 08:00 Pulse Ox 94 L 08/03/22 08:00 FiO2 Intake & Output 08/02/22 08/03/22 08/03/22 18:59 06:59 18:59 Intake Total 598 240 Balance 598 240 Intake: Oral 598 240 Other: Voiding Method Toilet Toilet Toilet # Voids 1 2 0 - Exam GENERAL DESCRIPTION: Middle-age female lying in bed in no distress RESPIRATORY SYSTEM: Unlabored breathing , decreased breath sounds at bases HEART: S1 S2 regular rate and rhythm , ABDOMEN: Soft , no tenderness EXTREMITIES: No edema feet - Labs CBC & Chem 7: 07/30/22 06:58 07/30/22 06:58 Labs: Abnormal Lab Results - Last 24 Hours (Table) 08/02/22 08/02/22 08/02/22 Range/Units 12:11 16:59 21:14 POC Glucose (mg/dL) 138 H 145 H 208 H (70-110) mg/dL 08/03/22 Range/Units 05:50 POC Glucose (mg/dL) 172 H (70-110) mg/dL Assessment and Plan (1) Allergy to multiple antibiotics Current Visit: Yes Status: Acute Code(s): Z88.1 - ALLERGY STATUS TO OTHER ANTIBIOTIC AGENTS SNOMED Code(s): 886154622 (2) Urinary tract infection Current Visit: Yes Status: Acute Code(s): N39.0 - URINARY TRACT INFECTION, SITE NOT SPECIFIED SNOMED Code(s): 62835532 Plan: 1patient presented to hospital with significant burning of urine suprapubic and flank pain concerning for symptomatic urinary tract infection more likely cystitis clinic not behaving as pyelonephritis in this patient with no fever or elevated white count ultrasound abdomen did not show any hydronephrosis or o bstructive uropathy. 2patient with multiple antibiotic allergies that would limit the number of ant ibiotics safe to use. 3patient urine has been finalized with E. coli which is a sensitive pathogen, patient did have multiple antibiotic ALLERGIES and apparently did not tolerate Macrobid, patient seemed to be doing well with Invanz to continue currently waiting for outpatient IV antibiotic arrangement Time with Patient: Less than 30
[2022-08-03] MEDS: NON FORMULARY DRUG (Dulaglutide [Trulicity] 0.75 MG/0.5 ML Each) SQ SCH (21:37)
[2022-08-04] MEDS: SODIUM CHLORIDE 0.9% 1,000 ML IV SCH (06:14)
[2022-08-04] MEDS: PANTOPRAZOLE 40 MG TABLET PO SCH (06:34)
[2022-08-04 06:47] LABS: Glucose,Whole Blood 162 mg/dL (70-110)
[2022-08-04] MEDS: INSULIN ASPART (NovoLOG) 100 UNIT/ML VIAL SQ SCH (06:48)
[2022-08-04 08:12] VITALS: BMI 45.8
[2022-08-04] MEDS: MORPHINE SULFATE ER 15 MG TABLET PO SCH (08:15)
[2022-08-04] MEDS: FUROSEMIDE 20 MG TAB PO SCH (08:16)
[2022-08-04] MEDS: ASCORBIC ACID 500 MG TAB PO SCH (08:16)
[2022-08-04] MEDS: glipiZIDE 10 MG TAB PO SCH (08:16)
[2022-08-04] MEDS: ATORVASTATIN 20 MG TAB PO SCH (08:16)
[2022-08-04] MEDS: CHOLECALCIFEROL 125 MCG (5000 IU) TABLET PO SCH (08:16)
[2022-08-04] MEDS: ALPRAZolam 1 MG TAB PO SCH (08:16)
[2022-08-04] MEDS: PIOGLITAZONE 30 MG TAB PO SCH (08:16)
[2022-08-04] MEDS: OLANZapine 5 MG TAB PO SCH (08:17)
[2022-08-04] MEDS: PSEUDOEPHEDRINE 12HR 120 MG TABLET.ER PO SCH (08:17)
[2022-08-04] MEDS: valACYclovir HCL 1,000 MG TABLET PO SCH (08:17)
[2022-08-04 08:19] VITALS: BP 141/87; RESP 20; TEMP 97.8
[2022-08-04] MEDS: MULTIVITAMINS, THERA 1 EACH TAB PO SCH (08:21)
[2022-08-04] MEDS: SENNOSIDES-DOCUSATE SODIUM 1 EACH TAB PO SCH (08:21)
[2022-08-04] MEDS: ERTAPENEM 1 GM in SODIUM CHLORIDE 0.9% 50 ML IVPB SCH (08:21)
[2022-08-04] MEDS: ONDANSETRON 4 MG/2 ML VIAL IVP PRN (08:35)
[2022-08-04] MEDS: oxyCODONE-APAP 10-325MG 1 EACH TAB PO PRN (08:35)
[2022-08-04 10:13] VITALS: PULSE 78
[2022-08-04 11:47] LABS: Glucose,Whole Blood 140 mg/dL (70-110)
--- NOTE | 2022-08-04 14:00 | P.PN ---
Subjective Progress Note Date: 08/04/22 Principal diagnosis: Urinary tract infection and multiple antibiotic ALLERGIES Patient is a 46-year-old female with a past medical history significant for recurrent UTI the patient did have multiple antibiotic ALLERGIES presented to the hospital with burning of urine suprapubic pain concerning for symptomatic UTI on today's evaluation that is 08/04/2022, the patient remains to be afebrile, patient denies any chest pain shortness of breath or cough patient did mention that flank pain has improved as well as urinary symptoms not as burning as he used to be, patient denies diarrhea still complaining of some nausea but no vomiting Objective - Vital Signs Vital signs: Vital Signs Temp 97.8 F 08/04/22 08:00 Pulse 78 08/04/22 08:00 Resp 20 08/04/22 08:00 BP 141/87 08/04/22 08:00 Pulse Ox 96 08/04/22 08:00 FiO2 Intake & Output 08/03/22 08/04/22 08/04/22 18:59 06:59 18:59 Intake Total 720 240 Balance 720 240 Weight 153.314 kg Intake: Oral 720 240 Other: Voiding Method Toilet Toilet Toilet # Voids 1 2 1 - Exam GENERAL DESCRIPTION: Middle-age female lying in bed in no distress RESPIRATORY SYSTEM: Unlabored breathing , decreased breath sounds at bases HEART: S1 S2 regular rate and rhythm , ABDOMEN: Soft , no tenderness EXTREMITIES: No edema feet - Labs CBC & Chem 7: 07/30/22 06:58 07/30/22 06:58 Labs: Abnormal Lab Results - Last 24 Hours (Table) 08/03/22 08/04/22 08/04/22 Range/Units 20:56 06:45 11:44 POC Glucose (mg/dL) 213 H 162 H 140 H (70-110) mg/dL Assessment and Plan (1) Allergy to multiple antibiotics Status: Acute Code(s): Z88.1 - ALLERGY STATUS TO OTHER ANTIBIOTIC AGENTS SNOMED Code(s): 130279266 (2) Urinary tract infection Status: Acute Code(s): N39.0 - URINARY TRACT INFECTION, SITE NOT SPECIFIED SNOMED Code(s): 80732467 Plan: 1patient presented to hospital with significant burning of urine suprapubic and flank pain concerning for symptomatic urinary tract infection more likely cystitis clinic not behaving as pyelonephritis in this patient with no fever or elevated white count ultrasound abdomen did not show any hydronephrosis or ob structive uropathy. 2patient with multiple antibiotic allergies that would limit the number of anti biotics safe to use. 3patient urine has been finalized with E. coli which is a sensitive pathogen, patient did have multiple antibiotic ALLERGIES and apparently did not tolerate Macrobid, patient seemed to be doing well with Invanz to continue to finish a 7 day course of therapy and close outpatient follow-up Time with Patient: Less than 30
--- NOTE | 2022-08-07 17:45 | P.DS ---
Providers Date of admission: 07/29/22 11:06 Expected date of discharge: 08/04/22 Attending physician: Donell Olivas Consults: 07/28/22 22:19 Consult Physician Routine Consulting Provider: Cindy Peraza Consult Reason/Comments: UTI, abx allergies Do you want consulting provider notified?: Yes, Notify in am Primary care physician: Marleny Farrell Hospital Course: Final diagnosis Acute urinary tract infection, present on admission with possible pyelonephritis. Culture showing E. coli Multiple antibiotic allergies Prior history of UTIs Elevated lipase level 325 Hypertension Hyperlipidemia Diabetes type 2 yvz-bdvhyje-jnpreokym Chronic pain/fibromyalgia Morbid obesity with BMI 45.8 History of seizure disorder History of CVA/TIA Left foot drop History of herpes simplex type II, chronically takes Valtrex Anxiety Prior history of cholecystectomy DVT prophylaxis heparin subcu Full code Discharge disposition Patient is being discharged in a stable condition with guarded prognosis to home. Patient will follow-up with Dr. Farrell in the outpatient setting upon discharge. Patient is to continue with IV daptomycin as scheduled. Total time taken is greater than 35 minutes. Hospital course This is a 46-year-old female who was recently admitted with acute urinary tract infection with concerns of pyelonephritis. Cultures did finalized showing E. coli and was maintained on antibiotics with attempts at oral Macrobid on discharge although patient took a dose prior to discharging and started experiencing itchiness and feelings of hotness and flushed in the face with infectious disease following recommending IV antibiotics in the form of daptomycin for the next one week. Insurance authorization took 72 hours for approval and patient will be discharged today and continue the infusion center daily for 1 week of IV daptomycin. Patient has been cleared by consultation for discharge today. Please refer to consultation note for further HPI.Currently no reports of chest pain, shortness of breath, or palpitations. Patient is afebrile. No reports of nausea or vomiting and patient is tolerating diet. Patient will be discharged home today. Physical exam: Gen: This is a 46 year old female is awake, alert and oriented 3, well- developed, well-nourished, morbidly obese HEENT: Head is atraumatic, normocephalic. Pupils equal, round. Sclerae is anicte svetlana. NECK: Supple. No JVD. No lymphadenopathy. No thyromegaly. LUNGS: Clear to auscultation. No wheezes or rhonchi. No intercostal retractions. HEART: Regular rate and rhythm. No murmur. ABDOMEN: Soft. Bowel sounds are present. No masses. No tenderness. EXTREMITIES: No pedal edema. No calf tenderness. NEUROLOGICAL: Patient is awake, alert and oriented x3. Cranial nerves 2 through 12 are grossly intact. Please refer to medication reconciliation sheet for a list of medications. The impression and plan of care has been dictated by Oliva Stafford, Nurse Practitioner as directed. MD Jordan I have performed a history and examination and MDM of this patient, discussed the same with the dictator, and agree with the dictator's assessment and plan as written ,documented as a scribe. Based on total visit time, I have performed more than 50% of the visit. Patient Condition at Discharge: Fair Plan - Discharge Summary Discharge Rx Participant: No New Discharge Prescriptions: Continue glipiZIDE [Glucotrol] 20 mg PO DAILY valACYclovir HCL [Valacyclovir] 1,000 mg PO DAILY Pioglitazone [Actos] 30 mg PO DAILY Morphine Sulfate ER [Ms Contin] 15 mg PO DAILY Dulaglutide [Trulicity] 0.75 mg SQ MO OLANZapine [ZyPREXA] 5 mg PO DAILY ALPRAZolam [Xanax] 1 mg PO QID Pseudoephedrine 12Hr [Sudafed 12 Hour] 240 mg PO DAILY Cholecalciferol [Vitamin D3 (125 Mcg = 5000 Iu)] 125 mcg PO DAILY Phytonadione [Vitamin K] 5 mg PO DAILY Sennosides/Docusate Sodium [Senna-S 8.6-50 mg Tablet] 1 tab PO DAILY oxyCODONE-APAP 10-325MG [Percocet 10-325 mg] 1 tab PO 5XD Rosuvastatin [Crestor] 10 mg PO DAILY lisinopriL [Zestril] 5 mg PO DAILY Baclofen 10 mg PO BID PRN PRN Reason: Pain hydroCHLOROthiazide 25 mg PO DAILY Furosemide [Lasix] 20 mg PO DAILY Potassium Gluconate 99 mg PO DAILY Multivitamins, Thera [Multivitamin (formulary)] 1 tab PO DAILY Ascorbic Acid [Vitamin C] 2,000 mg PO DAILY Discharge Medication List glipiZIDE [Glucotrol] 20 mg PO DAILY 11/02/17 [History] valACYclovir HCL [Valacyclovir] 1,000 mg PO DAILY 11/21/19 [History] Sennosides/Docusate Sodium [Senna-S 8.6-50 mg Tablet] 1 tab PO DAILY 10/13/20 [History] oxyCODONE-APAP 10-325MG [Percocet 10-325 mg] 1 tab PO 5XD 03/07/21 [History] Baclofen 10 mg PO BID PRN 02/10/22 [History] Dulaglutide [Trulicity] 0.75 mg SQ MO 02/10/22 [History] Morphine Sulfate ER [Ms Contin] 15 mg PO DAILY 02/10/22 [History] Pioglitazone [Actos] 30 mg PO DAILY 02/10/22 [History] Rosuvastatin [Crestor] 10 mg PO DAILY 02/10/22 [History] lisinopriL [Zestril] 5 mg PO DAILY 02/10/22 [History] ALPRAZolam [Xanax] 1 mg PO QID 07/28/22 [History] Ascorbic Acid [Vitamin C] 2,000 mg PO DAILY 07/28/22 [History] Cholecalciferol [Vitamin D3 (125 Mcg = 5000 Iu)] 125 mcg PO DAILY 07/28/22 [History] Furosemide [Lasix] 20 mg PO DAILY 07/28/22 [History] Multivitamins, Thera [Multivitamin (formulary)] 1 tab PO DAILY 07/28/22 [History] OLANZapine [ZyPREXA] 5 mg PO DAILY 07/28/22 [History] Phytonadione [Vitamin K] 5 mg PO DAILY 07/28/22 [History] Potassium Gluconate 99 mg PO DAILY 07/28/22 [History] Pseudoephedrine 12Hr [Sudafed 12 Hour] 240 mg PO DAILY 07/28/22 [History] hydroCHLOROthiazide 25 mg PO DAILY 07/28/22 [History] Follow up Appointment(s)/Referral(s): Marleny Farrell DO [Primary Care Provider] - 1-2 days [facility],Infusion [NON-STAFF] - As Needed (DAILY FOR IV ABX the office will call you to schedule an appointment) Patient Instructions/Handouts: Urinary Tract Infection in Older Adults (ED) Activity/Diet/Wound Care/Special Instructions: Activity Limited until follow-up Follow-up with primary care provider on discharge Continue taking medications as prescribed Patient has received a midline and being arranged for outpatient IV Invanz 1 g daily for the next 1 week and will be going to the office for infusions Discharge Disposition: HOME SELF-CARE
== END 2022-08-04 13:31 | disposition home or self-care (01) | DRG 463 ==
LOC: EC 11:07 → 6NMEDSUR 15:10 → OBSVTOIN 07-29 11:06
PROVIDERS: ADMIT Internal Medicine; ATTEND Internal Medicine
DX: N10 Acute pyelonephritis (principal); B96.20 Unspecified Escherichia coli [E. coli] as the cause of diseases classified elsewhere; M21.372 Foot drop, left foot; M79.7 Fibromyalgia; E66.01 Morbid (severe) obesity due to excess calories; E78.5 Hyperlipidemia, unspecified; F41.9 Anxiety disorder, unspecified; B02.9 Zoster without complications; G40.909 Epilepsy, unspecified, not intractable, without status epilepticus; G89.29 Other chronic pain; I10 Essential (primary) hypertension; Z79.84 Long term (current) use of oral hypoglycemic drugs; Z79.899 Other long term (current) drug therapy; Z86.73 Personal history of transient ischemic attack (TIA), and cerebral infarction without residual deficits; Z87.440 Personal history of urinary (tract) infections; Z88.1 Allergy status to other antibiotic agents; Z88.0 Allergy status to penicillin; Z88.2 Allergy status to sulfonamides; Z88.8 Allergy status to other drugs, medicaments and biological substances; Z86.14 Personal history of Methicillin resistant Staphylococcus aureus infection; Z87.442 Personal history of urinary calculi; Z68.42 Body mass index [BMI] 45.0-49.9, adult
CPT/HCPCS: 36410; 36415; 76700; 76937; 80048; 80053; 80170; 81001; 83036; 83605; 83690; 85025; 87077; 87086; 87186; 96361; 96374; 99284

== ENCOUNTER 2022-08-08 08:43 | Emergency (ER) | payer OTHER ==
[2022-08-08 09:03] VITALS: PULSE 90; RESP 20; TEMP 97.6
[2022-08-08] MEDS ORDERED: SODIUM CHLORIDE 0.9% 1,000 ML IV STA (10:05)
[2022-08-08] MEDS ORDERED: HYDROmorphone 1 MG/ML 1 ML SYRINGE IVP STA ×2 (10:08→13:41)
[2022-08-08 10:45] LABS: Basophils % (A) 1 %; Eosinophils % (A) 1 %; HCT 40.7 % (34.0-46.0); HGB 13.8 gm/dL (11.4-16.0); Lymphocytes # (A) 0.6 k/uL (1.0-4.8); Lymphocytes % (A) 11 %; MCH 30.6 pg (25.0-35.0); MCHC 33.9 g/dL (31.0-37.0); MCV 90.1 fL (80.0-100.0); Mean Platelet Volume 8.4; Monocytes # (A) 0.3 k/uL (0-1.0); Monocytes % (A) 6 %; Neutrophils # (A) 4.3 k/uL (1.3-7.7); Neutrophils % (A) 80 %; Platelet Count 218 k/uL (150-450); RBC 4.51 m/uL (3.80-5.40); RDW 13.5 % (11.5-15.5); WBC 5.4 k/uL (3.8-10.6)
[2022-08-08 10:54] LABS: ALT 42 U/L (4-34); AST 38 U/L (14-36); African American GFR (CKD) >90 (>60 ml/min/1.73 sqM); Albumin 3.6 g/dL (3.5-5.0); Alkaline Phosphatase 45 U/L (38-126); Anion Gap 7 mmol/L; Blood Urea Nitrogen 11 mg/dL (7-17); Calcium 9.4 mg/dL (8.4-10.2); Carbon Dioxide 29 mmol/L (22-30); Chloride 103 mmol/L (98-107); Glucose 139 mg/dL (74-99); Non-African American GFR(CKD) >90 (>60 ml/min/1.73 sqM); Potassium 4.4 mmol/L (3.5-5.1); Sodium 139 mmol/L (137-145); Total Bilirubin 0.5 mg/dL (0.2-1.3); Total Protein 6.5 g/dL (6.3-8.2)
[2022-08-08 10:57] LABS: Prothrombin Time 10.4 sec (9.0-12.0)
--- NOTE | 2022-08-08 11:19 | CT ---
EXAMINATION TYPE: CT abdomen pelvis wo con, CT lumbar spine wo con DATE OF EXAM: 08/08/2022 HISTORY: flank pain (accession [id number]), lower back pain (accession [id number]) CT DLP: 3373.4 mGycm. Automated Exposure Control for Dose Reduction was Utilized. TECHNIQUE: CT scan of the abdomen and pelvis and lumbar spine are all performed without oral or IV c ontrast. COMPARISON: Most recent CT abdomen and pelvis January 22, 2021 and older CTs FINDINGS: Within the limitations of a non-contrast study, the following observations are made. LUNG BASES: Dependent atelectasis on current study. LIVER/GB: Cholecystectomy clips are redemonstrated. PANCREAS: No significant abnormality is seen. SPLEEN: No significant abnormality is seen. ADRENALS: Stable 3.5 x 2.2 cm lobulated low dense left adrenal mass axial image 39 favored benign chester ology.. KIDNEYS: No renal calculi or hydronephrosis is seen bilaterally. No intraluminal calculus in the blad catrachita. BOWEL: Normal appearing appendix from the cecum. GENITAL ORGANS: Anteverted uterus projects to the right of midline. LYMPH NODES: No greater than 1cm abdominal or pelvic lymph nodes are appreciated. OSSEOUS STRUCTURES: No significant abnormality. OTHER: No significant additional abnormality is seen. Lumbar spine: There are 5 lumbar type vertebra redemonstrated. Lumbar spine redemonstrates slight gra de 1 anterolisthesis L4 on L5. There is xaca-er-hpimwpkz disc space narrowing and anterior spurring a t L4-L5 level redemonstrated. There is moderate to severe disc space narrowing with vacuum disc pheno mundo and moderate anterior spurring at L5-S1 level redemonstrated. No acute fracture or dislocation is seen. Vertebral body heights are preserved. Axial images show T12-L1 through the L2-L3 level to appear within normal limits. Axial images at L3-L4 levels show mild facet arthropathy and ligamentum flavum hypertrophy bilaterall y. Bilateral neural foramina are also patent. Axial images at L4-L5 level show spondylolisthesis with moderate facet arthropathy and ligamentum fla vum hypertrophy bilaterally effacing the posterolateral thecal sac. There is likely mild to moderate left greater than right bilateral anterior inferior neural foraminal narrowing. Axial images at L5-S1 level mild facet arthropathy bilaterally. There is likely vxtz-vw-[id number] left -sided neural foraminal narrowing due to eccentric spur disc complex. IMPRESSION: No renal stones or hydronephrosis is seen bilaterally. Multilevel degenerative change in the mid to lower lumbar spine as detailed above. No acute findings are present.
[2022-08-08 12:47] LABS: Appearance,Urine Clear (Clear); Bilirubin,Urine Negative (Negative); Blood,Urine Negative (Negative); Color,Urine Yellow; Glucose,Urine (UA) Negative (Negative); Ketones,Urine Trace (Negative); Leukocyte Esterase,Urine Negative (Negative); Mucus,Urine Rare /hpf; Nitrite,Urine Negative (Negative); PH, Urine 7.5 (5.0-8.0); Protein,Urine 1+ (Negative); RBC,Urine 1 /hpf (0-5); Specific Gravity,Urine 1.013 (1.001-1.035); Urobilinogen,Urine <2.0 mg/dL (<2.0); WBC,Urine <1 /hpf (0-5)
--- NOTE | 2022-08-08 13:07 | ED ---
General Adult HPI - General Chief complaint: Back Pain/Injury Stated complaint: neuro issues Time Seen by Provider: 08/08/22 09:22 Source: patient Mode of arrival: ambulatory Limitations: no limitations - History of Present Illness Initial comments: 46 year old female with fibromylagia, chronic pain presents to ED reporting diffuse body aches and bilateral flank pain. She currently has a picc line and is getting infusions for pyleonephritis. Patient concerned her infection is not clearing due to flank pain. Admits dysuria. No diarrhea. No fevers. No sick contacts. Had an appointment this morning with her pain clinic. - Related Data Home Medications Medication Instructions Recorded Confirmed glipiZIDE [Glucotrol] 20 mg PO DAILY 11/02/17 08/08/22 valACYclovir HCL [Valacyclovir] 1,000 mg PO DAILY 11/21/19 08/08/22 Sennosides/Docusate Sodium 1 tab PO DAILY 10/13/20 08/08/22 [Senna-S 8.6-50 mg Tablet] oxyCODONE-APAP 10-325MG [Percocet 1 tab PO DAILY@0603/07/21 08/08/22 10-325 mg] Baclofen 10 mg PO BID PRN 02/10/22 08/08/22 Dulaglutide [Trulicity] 0.75 mg SQ MO 02/10/22 08/08/22 Morphine Sulfate ER [Ms Contin] 15 mg PO DAILY@0600 02/10/22 08/08/22 Pioglitazone [Actos] 30 mg PO DAILY 02/10/22 08/08/22 Rosuvastatin [Crestor] 10 mg PO DAILY 02/10/22 08/08/22 lisinopriL [Zestril] 5 mg PO DAILY 02/10/22 08/08/22 ALPRAZolam [Xanax] 1 mg PO QID 07/28/22 08/08/22 Ascorbic Acid [Vitamin C] 2,000 mg PO DAILY 07/28/22 08/08/22 Cholecalciferol [Vitamin D3 (125 125 mcg PO DAILY 07/28/22 08/08/22 Mcg = 5000 Iu)] Furosemide [Lasix] 20 mg PO DAILY 07/28/22 08/08/22 Multivitamins, Thera [Multivitamin 1 tab PO DAILY 07/28/22 08/08/22 (formulary)] OLANZapine [ZyPREXA] 5 mg PO DAILY 07/28/22 08/08/22 Phytonadione [Vitamin K] 5 mg PO DAILY 07/28/22 08/08/22 Potassium Gluconate 99 mg PO DAILY 07/28/22 08/08/22 Pseudoephedrine 12Hr [Sudafed 12 240 mg PO DAILY 07/28/22 08/08/22 Hour] hydroCHLOROthiazide 25 mg PO DAILY 07/28/22 08/08/22 DAPTOmycin [Cubicin] 1 dose IV DAILY 08/08/22 08/08/22 oxyCODONE HCL/ACETAMINOPHEN 2 tab PO BID@1130,1730 08/08/22 08/08/22 [Percocet 10-325 mg] Allergies Allergy/AdvReac Type Severity Reaction Status Date / Time adhesive tape Allergy Severe Rash/Hives Verified 08/08/22 09:25 cortisone [Cortisone] Allergy Severe Anaphylaxis Verified 08/08/22 09:25 diphenhydramine HCl Allergy Severe Anaphylaxis Verified 08/08/22 09:25 [From Benadryl] Penicillins Allergy Severe Anaphylaxis Verified 08/08/22 09:25 Sulfa (Sulfonamide Allergy Intermediate Rash/Hives Verified 08/08/22 09:25 Antibiotics) Cephalosporins Allergy Mild Rash/Hives Verified 08/08/22 09:25 doxycycline Allergy Mild Rash/Hives Verified 08/08/22 09:25 Quinolones Allergy Mild Rash/Hives Verified 08/08/22 09:25 Flasher And Derivatives Allergy Rash/Hives Verified 08/08/22 09:25 [Flasher] Iodine and Iodide Containing Allergy Unknown Verified 08/08/22 09:25 Produc nitrofurantoin Allergy Itching/hotness/flushed Verified 08/08/22 09:25 [From Macrobid] face Review of Systems ROS Statement: Those systems with pertinent positive or pertinent negative responses have been documented in the HPI. ROS Other: All systems not noted in ROS Statement are negative. 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 pain, frequent nausea History of Any Multi-Drug Resistant Organisms: MRSA Date of last positivie culture/infection: 07/04/01 MDRO Source:: gallbladder Past Surgical History: Cholecystectomy, Hernia Repair Additional Past Surgical History / Comment(s): CATARACT SURGERY, kidney stents ; Colonoscopies, ventral hernia 08/02/17, recent EGD Past Anesthesia/Blood Transfusion Reactions: No Reported Reaction Past Psychological History: Anxiety Smoking Status: Never smoker Past Alcohol Use History: None Reported Past Drug Use History: None Reported - Past Family History Father Family Medical History: No Reported History Mother Family Medical History: Cancer Additional Family Medical History / Comment(s): breast cancer (axilla location) dx at age 45. Maternal aunt dx with breast cancer @50, at age 54 from breast cancer Sister(s) Family Medical History: Cancer Additional Family Medical History / Comment(s): at age 8 from Leukemia, General Exam Limitations: no limitations General appearance: alert, in no apparent distress Head exam: Present: atraumatic, normocephalic, normal inspection Eye exam: Present: normal appearance, PERRL, EOMI. Absent: scleral icterus, conjunctival injection, periorbital swelling ENT exam: Present: normal exam, mucous membranes moist Neck exam: Present: normal inspection. Absent: tenderness, meningismus, lymphadenopathy Respiratory exam: Present: normal lung sounds bilaterally. Absent: respiratory distress, wheezes, rales, rhonchi, stridor Cardiovascular Exam: Present: regular rate, normal rhythm, normal heart sounds. Absent: systolic murmur, diastolic murmur, rubs, gallop, clicks GI/Abdominal exam: Present: soft, normal bowel sounds. Absent: distended, tenderness, guarding, rebound, rigid Extremities exam: Present: normal inspection, full ROM, normal capillary refill. Absent: tenderness, pedal edema, joint swelling, calf tenderness Back exam: Present: normal inspection, paraspinal tenderness Neurological exam: Present: alert, oriented X3, CN II-XII intact Psychiatric exam: Present: normal affect, normal mood Skin exam: Present: warm, dry, intact, normal color. Absent: rash Course Vital Signs 08/08/22 08/08/22 08/08/22 08:59 09:17 09:20 Temperature 97.6 F Pulse Rate 90 Respiratory 20 Rate Blood Pressure 119/79 132/82 O2 Sat by Pulse 100 98 98 Oximetry 08/08/22 08/08/22 08/08/22 09:30 09:40 09:50 Temperature Pulse Rate Respiratory Rate Blood Pressure 134/85 O2 Sat by Pulse 93 L 97 96 Oximetry 08/08/22 13:23 Temperature Pulse Rate 90 Respiratory 20 Rate Blood Pressure 111/73 O2 Sat by Pulse 98 Oximetry EKG Findings - EKG Comments: EKG Findings:: EKG demonstrates sinus rhythm with a rate of 88. MS interval 147. QRS 96. QTC of 412. No acute ST segment elevations or depressions Medical Decision Making - Medical Decision Making Was pt. sent in by a medical professional or institution (SUSIE Marc, VIBRATION ANALYST, urgent care, hospital, or skilled nursing...) When possible be specific @ -No Did you speak to anyone other than the patient for history (EMS, parent, family, police, friend...)? What history was obtained from this source @ -No Did you review nursing and triage notes (agree or disagree)? Why? @ -I reviewed and agree with nursing and triage notes Were old charts reviewed (outside hosp., previous admission, EMS record, old EKG , old radiological studies, urgent care reports/EKG's, skilled nursing records)? Report findings @ -Old charts were reviewed Differential Diagnosis (chest pain, altered mental status, abdominal pain women, abdominal pain men, vaginal bleeding, weakness, fever, dyspnea, syncope, headache, dizziness, GI bleed, back pain, seizure, CVA, palpatations, mental health, musculoskeletal)? @ -URI, UTI, covid, pneumonia, pyelonephritis, msk back apin EKG interpreted by me (3pts min.). @ -As above X-rays interpreted by me (1pt min.). @ -yes CT interpreted by me (1pt min.). @ -yes U/S interpreted by me (1pt. min.). @ -None done What testing was considered but not performed or refused? (CT, X-rays, U/S, labs)? Why? @ -None What meds were considered but not given or refused? Why? @ -None Did you discuss the management of the patient with other professionals (professionals i.e. SUSIE Marc, VIBRATION ANALYST, lab, RT, psych nurse, delinquency prevention social worker, director of automation, teacher, parole hearing officer, case management coordinator)? Give summary @ -no Was smoking cessation discussed for >3mins.? @ -No Was critical care preformed (if so, how long)? @ -No Were there social determinants of health that impacted care today? How? (Homelessness, low income, unemployed, alcoholism, drug addiction, transportation, low edu. Level, literacy, decrease access to med. care, long term, rehab)? @ -No Was there de-escalation of care discussed even if they declined (Discuss DNR or withdrawal of care, Hospice)? DNR status @ -No What co-morbidities impacted this encounter? (DM, HTN, Smoking, COPD, CAD, Cancer, CVA, ARF, Chemo, Hep., AIDS, mental health diagnosis, sleep apnea, morb id obesity)? @ -chronic back pain Was patient admitted / discharged? Hospital course, mention meds given and route, prescriptions, significant lab abnormalities, going to OR and other pertinent info. @ -discharged home in stable condition Undiagnosed new problem with uncertain prognosis? @ -yes Drug Therapy requiring intensive monitoring for toxicity (Heparin, Nitro, Insulin, Cardizem)? @ -No Were any procedures done? @ -No Diagnosis/symptom? @ -acute exacerbation of chronic back pain Acute, or Chronic, or Acute on Chronic? @ -acute Uncomplicated (without systemic symptoms) or Complicated (systemic symptoms)? @ -complicated Side effects of treatment? @ -No Exacerbation, Progression, or Severe Exacerbation? @ -No Poses a threat to life or bodily function? How? (Chest pain, [place], [place], pneumonia, PE, COPD, DKA, ARF, appy, cholecystitis, CVA, Diverticulitis, Homicidal, Suicidal, threat to staff... and all critical care pts) @ -No - Lab Data Result diagrams: 08/08/22 10:33 08/08/22 10:33 Lab Results 08/08/22 08/08/22 08/08/22 Range/Units 10:33 10:33 10:33 WBC 5.4 (3.8-10.6) k/uL RBC 4.51 (3.80-5.40) m/uL Hgb 13.8 (11.4-16.0) gm/dL Hct 40.7 (34.0-46.0) % MCV 90.1 (80.0-100.0) fL MCH 30.6 (25.0-35.0) pg MCHC 33.9 (31.0-37.0) g/dL RDW 13.5 (11.5-15.5) % Plt Count 218 (150-450) k/uL MPV 8.4 Neutrophils % 80 % Lymphocytes % 11 % Monocytes % 6 % Eosinophils % 1 % Basophils % 1 % Neutrophils # 4.3 (1.3-7.7) k/uL Lymphocytes # 0.6 L (1.0-4.8) k/uL Monocytes # 0.3 (0-1.0) k/uL Eosinophils # 0.0 (0-0.7) k/uL Basophils # 0.0 (0-0.2) k/uL PT 10.4 (9.0-12.0) sec INR 1.0 (<1.2) APTT 25.0 (22.0-30.0) sec Sodium 139 (137-145) mmol/L Potassium 4.4 (3.5-5.1) mmol/L Chloride 103 (98-107) mmol/L Carbon Dioxide 29 (22-30) mmol/L Anion Gap 7 mmol/L BUN 11 (7-17) mg/dL Creatinine 0.58 (0.52-1.04) mg/dL Est GFR (CKD-EPI)AfAm >90 (>60 ml/min/1.73 sqM) Est GFR (CKD-EPI)NonAf >90 (>60 ml/min/1.73 sqM) Glucose 139 H (74-99) mg/dL Plasma Lactic Acid Oliverio (0.7-2.0) mmol/L Calcium 9.4 (8.4-10.2) mg/dL Total Bilirubin 0.5 (0.2-1.3) mg/dL AST 38 H (14-36) U/L ALT 42 H (4-34) U/L Alkaline Phosphatase 45 (38-126) U/L Troponin I (0.000-0.034) ng/mL Total Protein 6.5 (6.3-8.2) g/dL Albumin 3.6 (3.5-5.0) g/dL Urine Color Urine Appearance (Clear) Urine pH (5.0-8.0) Ur Specific [place] (1.001-1.035) Urine Protein (Negative) Urine Glucose (UA) (Negative) Urine Ketones (Negative) Urine Blood (Negative) Urine Nitrite (Negative) Urine Bilirubin (Negative) Urine Urobilinogen (<2.0) mg/dL Ur Leukocyte Esterase (Negative) Urine RBC (0-5) /hpf Urine WBC (0-5) /hpf Urine Mucus (None) /hpf 08/08/22 08/08/22 08/08/22 Range/Units 10:33 10:33 12:23 WBC (3.8-10.6) k/uL RBC (3.80-5.40) m/uL Hgb (11.4-16.0) gm/dL Hct (34.0-46.0) % MCV (80.0-100.0) fL MCH (25.0-35.0) pg MCHC (31.0-37.0) g/dL RDW (11.5-15.5) % Plt Count (150-450) k/uL MPV Neutrophils % % Lymphocytes % % Monocytes % % Eosinophils % % Basophils % % Neutrophils # (1.3-7.7) k/uL Lymphocytes # (1.0-4.8) k/uL Monocytes # (0-1.0) k/uL Eosinophils # (0-0.7) k/uL Basophils # (0-0.2) k/uL PT (9.0-12.0) sec INR (<1.2) APTT (22.0-30.0) sec Sodium (137-145) mmol/L Potassium (3.5-5.1) mmol/L Chloride (98-107) mmol/L Carbon Dioxide (22-30) mmol/L Anion Gap mmol/L BUN (7-17) mg/dL Creatinine (0.52-1.04) mg/dL Est GFR (CKD-EPI)AfAm (>60 ml/min/1.73 sqM) Est GFR (CKD-EPI)NonAf (>60 ml/min/1.73 sqM) Glucose (74-99) mg/dL Plasma Lactic Acid Oliverio 1.0 (0.7-2.0) mmol/L Calcium (8.4-10.2) mg/dL Total Bilirubin (0.2-1.3) mg/dL AST (14-36) U/L ALT (4-34) U/L Alkaline Phosphatase (38-126) U/L Troponin I <0.012 (0.000-0.034) ng/mL Total Protein (6.3-8.2) g/dL Albumin (3.5-5.0) g/dL Urine Color Yellow Urine Appearance Clear (Clear) Urine pH 7.5 (5.0-8.0) Ur Specific [place] 1.013 (1.001-1.035) Urine Protein 1+ H (Negative) Urine Glucose (UA) Negative (Negative) Urine Ketones Trace H (Negative) Urine Blood Negative (Negative) Urine Nitrite Negative (Negative) Urine Bilirubin Negative (Negative) Urine Urobilinogen <2.0 (<2.0) mg/dL Ur Leukocyte Esterase Negative (Negative) Urine RBC 1 (0-5) /hpf Urine WBC <1 (0-5) /hpf Urine Mucus Rare H (None) /hpf Disposition Clinical Impression: Chronic back pain Disposition: HOME SELF-CARE Condition: Stable Instructions (If sedation given, give patient instructions): Dizziness (ED) Additional Instructions: Please follow-up with your pain management doctor as scheduled. I also recommend that you see one of the spine surgeons in [facility] including Dr. Forbes or Dr. Betancur. Return for any new or worsening symptoms Is patient prescribed a controlled substance at d/c from ED?: No Referrals: Marleny Farrell DO [Primary Care Provider] - 1-2 days Khanh Craft MD [REFERRING] - 09/05/22 8:15 am (New phone number is [phone] New Address is [address] [place] [address]) Meng Betancur DO [Doctor of Osteopathic Medicine] - 1-2 days Randy Forbes DO [Doctor of Osteopathic Medicine] - 1-2 days Time of Disposition: 13:43
[2022-08-08 13:25] VITALS: BP 111/73
== END 2022-08-08 14:15 | disposition home or self-care (01) ==
LOC: EC 08:43
DX: G89.29 Other chronic pain (principal); M54.50 Low back pain, unspecified; E11.36 Type 2 diabetes mellitus with diabetic cataract; H26.9 Unspecified cataract; I63.9 Cerebral infarction, unspecified; I10 Essential (primary) hypertension; F41.9 Anxiety disorder, unspecified; Z88.2 Allergy status to sulfonamides; Z88.1 Allergy status to other antibiotic agents; Z88.0 Allergy status to penicillin; Z91.048 Other nonmedicinal substance allergy status; Z88.8 Allergy status to other drugs, medicaments and biological substances; Z91.018 Allergy to other foods; Z87.442 Personal history of urinary calculi; Z79.84 Long term (current) use of oral hypoglycemic drugs; Z90.49 Acquired absence of other specified parts of digestive tract
CPT/HCPCS: 36415; 93005; 80053; 83605; 84484; 85025; 85610; 85730; 81001; 72131; 74176; 99284; 96374; 96376; 96361; J1170

== ENCOUNTER 2022-10-06 16:13 | Emergency (ER) | payer OTHER ==
[2022-10-06] MEDS ORDERED: KETOROLAC 15 MG/ML 1 ML VIAL IM STA (16:49)
[2022-10-06] MEDS ORDERED: HYDROcodone/APAP 7.5-325MG 1 EACH TAB PO ONE (16:50)
--- NOTE | 2022-10-06 18:46 | XR ---
EXAMINATION TYPE: XR forearm LT DATE OF EXAM: 10/06/2022 COMPARISON: None HISTORY: Fall TECHNIQUE: 2 view left forearm FINDINGS: No acute fracture or dislocation is evident. Ulnar negative variance may be present. Anteri or fat pad at the elbow is normal. Follow up exams can be performed 7-10 days from acute trauma for continued pain. IMPRESSION: 1. No acute osseous abnormality left forearm
--- NOTE | 2022-10-06 18:48 | XR ---
EXAMINATION TYPE: XR hand complete LT DATE OF EXAM: 10/06/2022 COMPARISON: None HISTORY: Fall, pain TECHNIQUE: Three-view left hand FINDINGS: No acute fracture or dislocation is evident. Soft tissues are normal. Joint spaces are pres erved. Follow up exams can be performed 7-10 days from acute trauma for continued pain. IMPRESSION: 1. No acute osseous abnormality left hand
--- NOTE | 2022-10-06 18:52 | XR ---
EXAMINATION TYPE: XR knee complete RT DATE OF EXAM: 10/06/2022 COMPARISON: None HISTORY: Pain fall TECHNIQUE: Three-view right knee FINDINGS: There is narrowing of medial compartment joint space. Lateral compartment joint spaces. The re is a small lateral tibial plateau and femoral condylar spurs. Medial femoral condylar and tibial p lateau spurring is also noted. No joint effusion is evident. Posterior patellar spurs are present. IMPRESSION: 1. Mild osteoarthritic degenerative change greater in the medial compartment
--- NOTE | 2022-10-06 18:56 | XR ---
EXAMINATION TYPE: XR foot complete LT DATE OF EXAM: 10/06/2022 COMPARISON: Left foot pain HISTORY: pain, fall TECHNIQUE: 3 view right foot. FINDINGS: No acute fracture or dislocation is evident. Joint spaces are preserved. Soft tissues are n ormal. Achilles tendon calcaneal heel spurs present. Follow up exams can be performed 7-10 days from acute trauma for continued pain. IMPRESSION: 1. No acute osseous abnormality left foot
--- NOTE | 2022-10-06 19:10 | ED ---
Fall HPI - General Chief Complaint: Fall Stated Complaint: [id number] INJURY FALL Time Seen by Provider: 10/06/22 16:43 Source: patient Mode of arrival: wheelchair - History of Present Illness Initial Comments: Patient is a 47-year-old female presents to the emergency department for evaluation of fall. Patient tripped while gardening landing on her left outstretched wrist and right knee. Patient states her head did hit the glass lately. She did not lose consciousness. She does not use blood thinners. No vomiting, headache, neck pain. Patient mostly complains of pain in her left wrist with radiation up the forearm. She also has mild pain in her right knee. - Related Data Home Medications Medication Instructions Recorded Confirmed glipiZIDE [Glucotrol] 20 mg PO DAILY 11/02/17 08/08/22 valACYclovir HCL [Valacyclovir] 1,000 mg PO DAILY 11/21/19 08/08/22 Sennosides/Docusate Sodium 1 tab PO DAILY 10/13/20 08/08/22 [Senna-S 8.6-50 mg Tablet] oxyCODONE-APAP 10-325MG [Percocet 1 tab PO DAILY@0600 03/07/21 08/08/22 10-325 mg] Baclofen 10 mg PO BID PRN 02/10/22 08/08/22 Dulaglutide [Trulicity] 0.75 mg SQ MO 02/10/22 08/08/22 Morphine Sulfate ER [Ms Contin] 15 mg PO DAILY@0600 02/10/22 08/08/22 Pioglitazone [Actos] 30 mg PO DAILY 02/10/22 08/08/22 Rosuvastatin [Crestor] 10 mg PO DAILY 02/10/22 08/08/22 lisinopriL [Zestril] 5 mg PO DAILY 02/10/22 08/08/22 ALPRAZolam [Xanax] 1 mg PO QID 07/28/22 08/08/22 Ascorbic Acid [Vitamin C] 2,000 mg PO DAILY 07/28/22 08/08/22 Cholecalciferol [Vitamin D3 (125 125 mcg PO DAILY 07/28/22 08/08/22 Mcg = 5000 Iu)] Furosemide [Lasix] 20 mg PO DAILY 07/28/22 08/08/22 Multivitamins, Thera [Multivitamin 1 tab PO DAILY 07/28/22 08/08/22 (formulary)] OLANZapine [ZyPREXA] 5 mg PO DAILY 07/28/22 08/08/22 Phytonadione [Vitamin K] 5 mg PO DAILY 07/28/22 08/08/22 Potassium Gluconate 99 mg PO DAILY 07/28/22 08/08/22 Pseudoephedrine 12Hr [Sudafed 12 240 mg PO DAILY 07/28/22 08/08/22 Hour] hydroCHLOROthiazide 25 mg PO DAILY 07/28/22 08/08/22 DAPTOmycin [Cubicin] 1 dose IV DAILY 08/08/22 08/08/22 oxyCODONE HCL/ACETAMINOPHEN 2 tab PO BID@1130,1730 08/08/22 08/08/22 [Percocet 10-325 mg] Previous Rx's Medication Instructions Recorded Ibuprofen [Motrin] 800 mg PO Q8HR PRN #30 tab 10/06/22 Allergies Allergy/AdvReac Type Severity Reaction Status Date / Time adhesive tape Allergy Severe Rash/Hives Verified 08/08/22 09:25 cortisone [Cortisone] Allergy Severe Anaphylaxis Verified 08/08/22 09:25 diphenhydramine HCl Allergy Severe Anaphylaxis Verified 08/08/22 09:25 [From Benadryl] Penicillins Allergy Severe Anaphylaxis Verified 08/08/22 09:25 Sulfa (Sulfonamide Allergy Intermediate Rash/Hives Verified 08/08/22 09:25 Antibiotics) Cephalosporins Allergy Mild Rash/Hives Verified 08/08/22 09:25 doxycycline Allergy Mild Rash/Hives Verified 08/08/22 09:25 Quinolones Allergy Mild Rash/Hives Verified 08/08/22 09:25 [place] And Derivatives Allergy Rash/Hives Verified 08/08/22 09:25 [[place]] Iodine and Iodide Containing Allergy Unknown Verified 08/08/22 09:25 Produc nitrofurantoin Allergy Itching/hotness/flushed Verified 08/08/22 09:25 [From Macrobid] face Review of Systems ROS Statement: Those systems with pertinent positive or pertinent negative responses have been documented in the HPI. ROS Other: All systems not noted in ROS Statement are negative. 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 pain, frequent nausea History of Any Multi-Drug Resistant Organisms: MRSA Date of last positivie culture/infection: 07/04/01 MDRO Source:: gallbladder Past Surgical History: Cholecystectomy, Hernia Repair Additional Past Surgical History / Comment(s): CATARACT SURGERY, kidney stents ; Colonoscopies, ventral hernia 08/02/17, recent EGD Past Anesthesia/Blood Transfusion Reactions: No Reported Reaction Past Psychological History: Anxiety Smoking Status: Never smoker Past Alcohol Use History: None Reported Past Drug Use History: None Reported - Past Family History Father Family Medical History: No Reported History Mother Family Medical History: Cancer Additional Family Medical History / Comment(s): breast cancer (axilla location) dx at age 45. Maternal aunt dx with breast cancer @50, at age 54 from breast cancer Sister(s) Family Medical History: Cancer Additional Family Medical History / Comment(s): at age 8 from Leukemia, General Exam Limitations: no limitations General appearance: alert, in no apparent distress Head exam: Present: atraumatic, normocephalic, normal inspection Eye exam: Present: normal appearance, PERRL, EOMI. Absent: scleral icterus, conjunctival injection, periorbital swelling Respiratory exam: Present: normal lung sounds bilaterally. Absent: respiratory distress, wheezes, rales, rhonchi, stridor Cardiovascular Exam: Present: regular rate, normal rhythm, normal heart sounds. Absent: systolic murmur, diastolic murmur, rubs, gallop, clicks Left Upper Arm exam: Present: normal inspection, full ROM. Absent: tenderness, swelling Elbow exam: Present: normal inspection, full ROM. Absent: tenderness, swelling Forearm Wrist exam: Present: normal inspection, full ROM, tenderness (Dorsal). Absent: swelling, abrasion, laceration, ecchymosis, deformity, crepitus, dislocation, erythema, tenderness over anatomical snuff box Hand Wrist exam: Present: full ROM, swelling (Mild dorsally). Absent: tenderness, laceration, ecchymosis, deformity, crepitus, dislocation, erythema, amputation, nail avulsion, subungual hematoma Neuro motor exam: Present: wrist extension intact, thumb opposition intact, thumb IP flexion intact, thumb adduction intact, fingers 2-5 abduction intact Vascular: Present: normal capillary refill Right Knee exam: Present: full ROM, tenderness (Mild knee cap), abrasion. Absent: swelling, laceration, ecchymosis, deformity, crepitus, dislocation, erythema, effusion, posterior draw sign, pain/laxity with valgus, pain/laxity with varus Lower Leg exam: Present: normal inspection, full ROM. Absent: tenderness, swelling Neurovascular tendon exam: Present: no vascular compromise Course Vital Signs 10/06/22 10/06/22 16:22 19:15 Temperature 97.3 F L 98.2 F Pulse Rate 89 72 Respiratory 22 14 Rate Blood Pressure 125/83 123/76 O2 Sat by Pulse 100 98 Oximetry Medical Decision Making - Medical Decision Making Was pt. sent in by a medical professional or institution (, PA, CLINICAL EDUCATION CONSULTANT, urgent care, hospital, or long-term...) When possible be specific @ -No Did you speak to anyone other than the patient for history (EMS, parent, family, police, friend...)? What history was obtained from this source @ -No Did you review nursing and triage notes (agree or disagree)? Why? @ -I reviewed and agree with nursing and triage notes Were old charts reviewed (outside hosp., previous admission, EMS record, old EKG, old radiological studies, urgent care reports/EKG's, long-term records)? Report findings @ -No old charts were reviewed Differential Diagnosis (chest pain, altered mental status, abdominal pain women, abdominal pain men, vaginal bleeding, weakness, fever, dyspnea, syncope, headache, dizziness, GI bleed, back pain, seizure, CVA, palpatations, mental health)? @ -Fracture, sprain, contusion, soft tissue injury EKG interpreted by me (3pts min.). @ -As above X-rays interpreted by me (1pt min.). @Yes, left forearm and left hand x-ray negative for fracture dislocation. Right knee and right foot x-ray negative for fracture dislocation. CT interpreted by me (1pt min.). @ -None done U/S interpreted by me (1pt. min.). @ -None done What testing was considered but not performed or refused? (CT, X-rays, U/S, labs)? Why? @ -considered CT imaging for head injury however patient does not have headache. She does not use blood thinners. No vomiting or alteration of mental status. What meds were considered but not given or refused? Why? @ -None Did you discuss the management of the patient with other professionals (professionals i.e. , PA, CLINICAL EDUCATION CONSULTANT, lab, RT, psych nurse, social organization professor, selling specialist, teacher, certification officer, medical case manager)? Give summary @ -No Was smoking cessation discussed for >3mins.? @ -No Was critical care preformed (if so, how long)? @ -No Were there social determinants of health that impacted care today? How? (Homelessness, low income, unemployed, alcoholism, drug addiction, transportation, low edu. Level, literacy, decrease access to med. care, skilled nursing, rehab)? @ -No Was there de-escalation of care discussed even if they declined (Discuss DNR or withdrawal of care, Hospice)? DNR status @ -No What co-morbidities impacted this encounter? (DM, HTN, Smoking, COPD, CAD, Cancer, CVA, ARF, Chemo, Hep., AIDS, mental health diagnosis, sleep apnea, morbid obesity)? @ -None Was patient admitted / discharged? Hospital course, mention meds given and route, prescriptions, significant lab abnormalities, going to OR and other pe rtinent info. @ -Discharged. X-ray interpreted by myself/radiology no fracture or dislocation of the wrist or knee. Left wrist wrapped in Jm bandage for wrist sprain. No anatomical snuffbox tenderness. Neurovascularly intact. Discussed rest, ice, elevation of left wrist and right knee. Patient discharged with Motrin. Undiagnosed new problem with uncertain prognosis? @ -No Drug Therapy requiring intensive monitoring for toxicity (Heparin, Nitro, Insulin, Cardizem)? @ -No Were any procedures done? @ -No Diagnosis/symptom? @ -Fall, left wrist sprain, right knee injury Acute, or Chronic, or Acute on Chronic? @ -Acute Uncomplicated (without systemic symptoms) or Complicated (systemic symptoms)? @ Uncomplicated Side effects of treatment? @ -No Exacerbation, Progression, or Severe Exacerbation? @ -No Poses a threat to life or bodily function? How? (Chest pain, [place], [place], pneumonia, PE, COPD, DKA, ARF, appy, cholecystitis, CVA, Diverticulitis, Homicidal, Suicidal, threat to staff... and all critical care pts) @ -No Dr. Ponce is my attending Disposition Clinical Impression: Left wrist sprain, Right knee injury, Fall Disposition: HOME SELF-CARE Condition: Good Instructions (If sedation given, give patient instructions): P.R.I.C.E. Treatment (ED) Additional Instructions: Rest and elevate the joint as much as possible. Ice the injury for the next 24- 48 hours. If symptoms continue after, apply warm compress. Take Tylenol or Motrin as needed for pain. Follow-up with primary care provider in 1 to 2 days. Return to the emergency department if you experience new, concerning, or worsening symptoms. Prescriptions: Ibuprofen [Motrin] 800 mg PO Q8HR PRN #30 tab PRN Reason: Pain Is patient prescribed a controlled substance at d/c from ED?: No Referrals: Marleny Farrell DO [Primary Care Provider] - 1-2 days
[2022-10-06 19:20] VITALS: BP 123/76; PULSE 72; RESP 14; TEMP 98.2
== END 2022-10-06 19:20 | disposition home or self-care (01) ==
LOC: EC 16:13
DX: S63.502A Unspecified sprain of left wrist, initial encounter (principal); S89.91XA Unspecified injury of right lower leg, initial encounter; E11.9 Type 2 diabetes mellitus without complications; I10 Essential (primary) hypertension; F41.9 Anxiety disorder, unspecified; Z86.73 Personal history of transient ischemic attack (TIA), and cerebral infarction without residual deficits; Z79.84 Long term (current) use of oral hypoglycemic drugs; Z79.899 Other long term (current) drug therapy; Z91.09 Other allergy status, other than to drugs and biological substances; Z88.0 Allergy status to penicillin; Z88.2 Allergy status to sulfonamides; Z88.8 Allergy status to other drugs, medicaments and biological substances; Z88.6 Allergy status to analgesic agent; Z88.1 Allergy status to other antibiotic agents; Z91.018 Allergy to other foods; W01.0XXA Fall on same level from slipping, tripping and stumbling without subsequent striking against object, initial encounter; Y92.096 Garden or yard of other non-institutional residence as the place of occurrence of the external cause
CPT/HCPCS: 73090; 73130; 73562; 73630; 99284; 96372; J1885

== ENCOUNTER → 2022-10-27 | Outpatient (CLI) | payer OTHER ==
[2022-10-27 16:29] LABS: Basophils # (A) 0.02 X 10*3/uL (0.00-0.10); Basophils % (A) 0.4 %; Eosinophils # (A) 0 X 10*3/uL (0.04-0.35); Eosinophils % (A) 0 %; HCT 37.7 % (37.2-46.3); HGB 12.1 d/dL (12.0-15.0); Lymphocytes # (A) 1.46 X 10*3/uL (0.90-5.00); Lymphocytes % (A) 32.3 %; MCH 30.3 pg (27.0-32.0); MCHC 32.1 d/dL (32.0-37.0); MCV 94.3 FL (80.0-97.0); Mean Platelet Volume 10.8 FL (9.5-12.2); Monocytes # (A) 0.52 X 10*3/uL (0.20-1.00); Monocytes % (A) 11.5 %; NRBC Per 100 WBC 0 X 10*3/uL (0.00-0.01); Neutrophils # (A) 2.51 X 10*3/uL (1.80-7.70); Neutrophils % (A) 55.6 %; Platelet Count 212 X 10*3/uL (140-440); RDW 13.4 % (11.5-14.5); WBC 4.52 X 10*3/uL (4.50-10.00)
== END | disposition home or self-care (01) ==
LOC: LABWHC1 12:20
PROVIDERS: ATTEND Family Medicine
DX: R23.3 Spontaneous ecchymoses (principal)
CPT/HCPCS: 36415; 85025

== ENCOUNTER 2023-01-16 16:40 | Emergency (ER) | payer OTHER ==
[2023-01-16 16:52] VITALS: BP 120/83; PULSE 94; RESP 20; TEMP 98.4
[2023-01-16] MEDS ORDERED: KETOROLAC 15 MG/ML 1 ML VIAL IVP STA (17:15)
[2023-01-16] MEDS ORDERED: droPERidol 5 MG/2 ML VIAL IVP ONE (17:17)
--- NOTE | 2023-01-16 17:21 | ED ---
General Adult HPI - General Chief complaint: Allergic Reaction Stated complaint: allergic reaction-migraine Time Seen by Provider: 01/16/23 17:00 Source: patient, RN notes reviewed, old records reviewed Mode of arrival: ambulatory Limitations: no limitations - History of Present Illness Initial comments: This is a 47-year-old female presents emergency Department stating she thinks she ate some this morning because her tongue is been swollen ever since. Patient states the swelling hasn't got worse. Patient denies any lip swelling. Patient denies eating anything different than normal. I also states she has a migraine headache which started before the tongue swelling. Patient states normally she gets headaches like this but today she just wouldn't go away. Patient states she normally can rubber ear and it will go away but it has not been able to do so today. Patient denies any nausea vomiting. Patient denies any numbness weakness. Patient denies any fever chills - Related Data Home Medications Medication Instructions Recorded Confirmed valACYclovir HCL [Valacyclovir] 1,000 mg PO DAILY 11/21/19 01/16/23 Sennosides/Docusate Sodium 1 tab PO DAILY 10/13/20 01/16/23 [Senna-S 8.6-50 mg Tablet] Baclofen 10 mg PO BID PRN 02/10/22 01/16/23 Dulaglutide [Trulicity] 0.75 mg SQ MO 02/10/22 01/16/23 Morphine Sulfate ER [Ms Contin] 15 mg PO DAILY 02/10/22 01/16/23 Pioglitazone [Actos] 30 mg PO DAILY 02/10/22 01/16/23 Rosuvastatin [Crestor] 10 mg PO DAILY 02/10/22 01/16/23 lisinopriL [Zestril] 5 mg PO DAILY 02/10/22 01/16/23 ALPRAZolam [Xanax] 1 mg PO TID 07/28/22 01/16/23 OLANZapine [ZyPREXA] 5 mg PO DAILY 07/28/22 01/16/23 oxyCODONE HCL/ACETAMINOPHEN 1 tab PO QID PRN 08/08/22 01/16/23 [Percocet 10-325 mg] Nystatin 100,000 Unit/gm Powd 1 applic TOPICAL BID 01/16/23 01/16/23 [Mycostatin Powder] glipiZIDE [Glucotrol] 5 mg PO BID 01/16/23 01/16/23 Allergies Allergy/AdvReac Type Severity Reaction Status Date / Time adhesive tape Allergy Severe Rash/Hives Verified 01/16/23 17:21 cortisone [Cortisone] Allergy Severe Anaphylaxis Verified 01/16/23 17:21 diphenhydramine HCl Allergy Severe Anaphylaxis Verified 01/16/23 17:21 [From Benadryl] Penicillins Allergy Severe Anaphylaxis Verified 01/16/23 17:21 Sulfa (Sulfonamide Allergy Intermediate Rash/Hives Verified 01/16/23 17:21 Antibiotics) Cephalosporins Allergy Mild Rash/Hives Verified 01/16/23 17:21 doxycycline Allergy Mild Rash/Hives Verified 01/16/23 17:21 Quinolones Allergy Mild Rash/Hives Verified 01/16/23 17:21 [place] And Derivatives Allergy Rash/Hives Verified 01/16/23 17:21 [[place]] Corticosteroids Allergy Rash/Hives/Shortness Verified 01/16/23 17:21 (Glucocorticoids) of Breath Iodine and Iodide Containing Allergy Unknown Verified 01/16/23 17:21 Produc nitrofurantoin Allergy Itching/hotness/flushed Verified 01/16/23 17:21 [From Macrobid] face Review of Systems ROS Statement: Those systems with pertinent positive or pertinent negative responses have been documented in the HPI. ROS Other: All systems not noted in ROS Statement are negative. 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 pain, frequent nausea History of Any Multi-Drug Resistant Organisms: MRSA Date of last positivie culture/infection: 07/04/01 MDRO Source:: gallbladder Past Surgical History: Cholecystectomy, Hernia Repair Additional Past Surgical History / Comment(s): CATARACT SURGERY, kidney stents ; Colonoscopies, ventral hernia 08/02/17, recent EGD Past Anesthesia/Blood Transfusion Reactions: No Reported Reaction Past Psychological History: Anxiety Smoking Status: Never smoker Past Alcohol Use History: None Reported Past Drug Use History: None Reported - Past Family History Father Family Medical History: No Reported History Mother Family Medical History: Cancer Additional Family Medical History / Comment(s): breast cancer (axilla location) dx at age 45. Maternal aunt dx with breast cancer @50, at age 54 from breast cancer Sister(s) Family Medical History: Cancer Additional Family Medical History / Comment(s): at age 8 from Leukemia, General Exam - General Exam Comments Initial Comments: GENERAL: Patient is well-developed and well-nourished. Patient is nontoxic and well- hydrated and is in mild distress. ENT: Neck is soft and supple. No significant lymphadenopathy is noted. Oropharynx is clear. Moist mucous membranes. Neck has full range of motion without eliciting any pain. Patient has a little bit of tongue swelling on the left tip of the tongue EYES: The sclera were anicteric and conjunctiva were pink and moist. Extraocular movements were intact and pupils were equal round and reactive to light. Eyelids were unremarkable. PULMONARY: Unlabored respirations. Good breath sounds bilaterally. No audible rales rhonchi or wheezing was noted. CARDIOVASCULAR: There is a regular rate and rhythm without any murmurs gallops or rubs. ABDOMEN: Soft and nontender with normal bowel sounds. SKIN: Skin is clear with no lesions or rashes and otherwise unremarkable. NEUROLOGIC: Patient is alert and oriented x3. Cranial nerves II through XII are grossly intact. Motor and sensory are also intact. Normal speech, volume and content. Symmetrical smile. MUSCULOSKELETAL: Normal extremities with adequate strength and full range of motion. No lower extremity swelling or edema. No calf tenderness. LYMPHATICS: No significant lymphadenopathy is noted PSYCHIATRIC: Normal psychiatric evaluation. Limitations: no limitations Course Vital Signs 01/16/23 16:50 Temperature 98.4 F Pulse Rate 94 Respiratory 20 Rate Blood Pressure 120/83 O2 Sat by Pulse 99 Oximetry Medical Decision Making - Medical Decision Making EKG was interpreted by myself. EKG shows a sinus rhythm at 96 bpm NC interval is 150 QRS is 95 Q-T intervals 353 QTC is 406. Patient's EKG shows no ST segment elevation or depression Was pt. sent in by a medical professional or institution (, PA, LEGAL SUPPORT ASSISTANT, urgent care, hospital, or care home...) When possible be specific @ -No Did you speak to anyone other than the patient for history (EMS, parent, family, police, friend...)? What history was obtained from this source @ -No Did you review nursing and triage notes (agree or disagree)? Why? @ -I reviewed and agree with nursing and triage notes Were old charts reviewed (outside hosp., previous admission, EMS record, old EKG, old radiological studies, urgent care reports/EKG's, care home records)? Report findings @ -No old charts were reviewed Differential Diagnosis (chest pain, altered mental status, abdominal pain women, abdominal pain men, vaginal bleeding, weakness, fever, dyspnea, syncope, headache, dizziness, GI bleed, back pain, seizure, CVA, palpatations, mental health, musculoskeletal)? @ -ALLERGIC reaction, angioedema hereditary, angioedema secondary to ron inhibitors EKG interpreted by me (3pts min.). @ -As above X-rays interpreted by me (1pt min.). @ -None done CT interpreted by me (1pt min.). @ -None done U/S interpreted by me (1pt. min.). @ -None done What testing was considered but not performed or refused? (CT, X-rays, U/S, labs)? Why? @ -None What meds were considered but not given or refused? Why? @ -None Did you discuss the management of the patient with other professionals (professionals i.e. , PA, LEGAL SUPPORT ASSISTANT, lab, RT, psych nurse, pediatric social worker, broadloom weaver, teacher, chief program officer, shoe parts caser)? Give summary @ -No Was smoking cessation discussed for >3mins.? @ -No Was critical care preformed (if so, how long)? @ -No Were there social determinants of health that impacted care today? How? (Homelessness, low income, unemployed, alcoholism, drug addiction, transportation, low edu. Level, literacy, decrease access to med. care, [facility], rehab)? @ -No Was there de-escalation of care discussed even if they declined (Discuss DNR or withdrawal of care, Hospice)? DNR status @ -No What co-morbidities impacted this encounter? (DM, HTN, Smoking, COPD, CAD, Cancer, CVA, ARF, Chemo, Hep., AIDS, mental health diagnosis, sleep apnea, morbid obesity)? @ -None Was patient admitted / discharged? Hospital course, mention meds given and route, prescriptions, significant lab abnormalities, going to OR and other pertinent info. @ -Patient did not take Solu-Medrol or Benadryl. Patient did get Toradol and droperidol for her headache and she stated it completely relieved her headache so she has no headache at this time. Patient's tongue did not get any more swollen during the time she was in the emergency department she will stop taking lisinopril. Undiagnosed new problem with uncertain prognosis? @ -No Drug Therapy requiring intensive monitoring for toxicity (Heparin, Nitro, Insulin, Cardizem)? @ -No Were any procedures done? @ -No Diagnosis/symptom? @ -Angioedema Acute, or Chronic, or Acute on Chronic? @ -Acute Uncomplicated (without systemic symptoms) or Complicated (systemic symptoms)? @ -Complicated Side effects of treatment? @ -No Exacerbation, Progression, or Severe Exacerbation? @ -No Poses a threat to life or bodily function? How? (Chest pain, [place], [place], pneumonia, PE, COPD, DKA, ARF, appy, cholecystitis, CVA, Diverticulitis, Homicidal, Suicidal, threat to staff... and all critical care pts) @ -No Diagnosis/symptom? @ -Migraine headache Acute, or Chronic, or Acute on Chronic? @ -Acute Uncomplicated (without systemic symptoms) or Complicated (systemic symptoms)? @ -Complicated Side effects of treatment? @ -none Exacerbation, Progression, or Severe Exacerbation] @ -no Poses a threat to life or bodily function? @ -no Disposition Clinical Impression: Angioedema Disposition: HOME SELF-CARE Condition: Good Additional Instructions: Patient is to stop her lisinopril. Patient is to return to the emergency department if any symptoms worsen or she has any new symptoms. Is patient prescribed a controlled substance at d/c from ED?: No Referrals: Nonstaff,Physician [Primary Care Provider] - 1-2 days Time of Disposition: 18:32
== END 2023-01-16 18:43 | disposition home or self-care (01) ==
LOC: EC 16:40
DX: T78.3XXA Angioneurotic edema, initial encounter (principal); G43.909 Migraine, unspecified, not intractable, without status migrainosus; E11.9 Type 2 diabetes mellitus without complications; I10 Essential (primary) hypertension; G40.909 Epilepsy, unspecified, not intractable, without status epilepticus; F41.9 Anxiety disorder, unspecified; Z79.84 Long term (current) use of oral hypoglycemic drugs; Z79.85 Long-term (current) use of injectable non-insulin antidiabetic drugs; Z79.899 Other long term (current) drug therapy; Z88.0 Allergy status to penicillin; Z88.1 Allergy status to other antibiotic agents; Z88.2 Allergy status to sulfonamides; Z88.8 Allergy status to other drugs, medicaments and biological substances; Z91.018 Allergy to other foods; Z86.73 Personal history of transient ischemic attack (TIA), and cerebral infarction without residual deficits; Z90.49 Acquired absence of other specified parts of digestive tract
CPT/HCPCS: 93005; 99283; 96374; 96375; J1885; J1790

== ENCOUNTER 2023-03-04 09:55 | Emergency (ER) | payer OTHER ==
[2023-03-04 10:10] LABS: Glucose,Whole Blood 149 mg/dL (70-110)
[2023-03-04] MEDS ORDERED: LORazepam 2 MG/ML INJ IV STA (10:11)
[2023-03-04] MEDS ORDERED: ONDANSETRON 4 MG/2 ML VIAL IVP STA (10:11)
--- NOTE | 2023-03-04 10:36 | ED ---
General Adult HPI - General Chief complaint: Neuro Symptoms/Deficit Stated complaint: Tongue Numbness Time Seen by Provider: 03/04/23 10:00 Source: patient, RN notes reviewed, old records reviewed Mode of arrival: wheelchair Limitations: no limitations - History of Present Illness Initial comments: This a 47-year-old female presents emergency Department complaining of waking up not feeling which she states the room was spinning and she felt her dizziness became nauseated and vomited. Patient also states when she first woke up she couldn't move any of her extremities for about a minute and then she was able to start moving them. Patient's been able to move them ever since. Patient complains of a headache to nursing but when I asked if she had headache she denied it. Patient states she had no pain anywhere she just didn't feel right and felt dizzy. Patient states the dizziness was worsened with movement of the head. Patient denies any chest pain palpitations or difficulty breathing. Patient denies any recent fever chills or cough per patient denies any ringing in the ears or change in hearing. Patient denies any abdominal pain. Patient denies any back pain. - Related Data Home Medications Medication Instructions Recorded Confirmed valACYclovir HCL [Valacyclovir] 1,000 mg PO DAILY 11/21/19 01/16/23 Sennosides/Docusate Sodium 1 tab PO DAILY 10/13/20 01/16/23 [Senna-S 8.6-50 mg Tablet] Baclofen 10 mg PO BID PRN 02/10/22 01/16/23 Dulaglutide [Trulicity] 0.75 mg SQ MO 02/10/22 01/16/23 Morphine Sulfate ER [Ms Contin] 15 mg PO DAILY 02/10/22 01/16/23 Pioglitazone [Actos] 30 mg PO DAILY 02/10/22 01/16/23 Rosuvastatin [Crestor] 10 mg PO DAILY 02/10/22 01/16/23 lisinopriL [Zestril] 5 mg PO DAILY 02/10/22 01/16/23 ALPRAZolam [Xanax] 1 mg PO TID 07/28/22 01/16/23 OLANZapine [ZyPREXA] 5 mg PO DAILY 07/28/22 01/16/23 oxyCODONE HCL/ACETAMINOPHEN 1 tab PO QID PRN 08/08/22 01/16/23 [Percocet 10-325 mg] Nystatin 100,000 Unit/gm Powd 1 applic TOPICAL BID 01/16/23 01/16/23 [Mycostatin Powder] glipiZIDE [Glucotrol] 5 mg PO BID 01/16/23 01/16/23 Allergies Allergy/AdvReac Type Severity Reaction Status Date / Time adhesive tape Allergy Severe Rash/Hives Verified 03/04/23 09:56 cortisone [Cortisone] Allergy Severe Anaphylaxis Verified 03/04/23 09:56 diphenhydramine HCl Allergy Severe Anaphylaxis Verified 03/04/23 09:56 [From Benadryl] Penicillins Allergy Severe Anaphylaxis Verified 03/04/23 09:56 Sulfa (Sulfonamide Allergy Intermediate Rash/Hives Verified 03/04/23 09:56 Antibiotics) Cephalosporins Allergy Mild Rash/Hives Verified 03/04/23 09:56 doxycycline Allergy Mild Rash/Hives Verified 03/04/23 09:56 Quinolones Allergy Mild Rash/Hives Verified 03/04/23 09:56 Agnew And Derivatives Allergy Rash/Hives Verified 03/04/23 09:56 [Agnew] Corticosteroids Allergy Rash/Hives/Shortness Verified 03/04/23 09:56 (Glucocorticoids) of Breath Iodine and Iodide Containing Allergy Unknown Verified 03/04/23 09:56 Produc nitrofurantoin Allergy Itching/hotness/flushed Verified 03/04/23 09:56 [From Macrobid] face Review of Systems ROS Statement: Those systems with pertinent positive or pertinent negative responses have been documented in the HPI. ROS Other: All systems not noted in ROS Statement are negative. 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 pain, frequent nausea History of Any Multi-Drug Resistant Organisms: MRSA Date of last positivie culture/infection: 07/04/01 MDRO Source:: gallbladder Past Surgical History: Cholecystectomy, Hernia Repair Additional Past Surgical History / Comment(s): CATARACT SURGERY, kidney stents ; Colonoscopies, ventral hernia 08/02/17, recent EGD Past Anesthesia/Blood Transfusion Reactions: No Reported Reaction Past Psychological History: Anxiety Smoking Status: Never smoker Past Alcohol Use History: None Reported Past Drug Use History: None Reported - Past Family History Father Family Medical History: No Reported History Mother Family Medical History: Cancer Additional Family Medical History / Comment(s): breast cancer (axilla location) dx at age 45. Maternal aunt dx with breast cancer @50, at age 54 from breast cancer Sister(s) Family Medical History: Cancer Additional Family Medical History / Comment(s): at age 8 from Leukemia, General Exam - General Exam Comments Initial Comments: GENERAL: Patient is well-developed and well-nourished. Patient is nontoxic and well- hydrated and is in mild distress. ENT: Neck is soft and supple. No significant lymphadenopathy is noted. Oropharynx is clear. Moist mucous membranes. Neck has full range of motion without eliciting any pain. EYES: The sclera were anicteric and conjunctiva were pink and moist. Extraocular movements were intact and pupils were equal round and reactive to light. Eyelids were unremarkable. PULMONARY: Unlabored respirations. Good breath sounds bilaterally. No audible rales rhonchi or wheezing was noted. CARDIOVASCULAR: There is a regular rate and rhythm without any murmurs gallops or rubs. ABDOMEN: Soft and nontender with normal bowel sounds. SKIN: Skin is clear with no lesions or rashes and otherwise unremarkable. NEUROLOGIC: Patient is alert and oriented x3. Cranial nerves II through XII are grossly intact. Motor and sensory are also intact. Normal speech, volume and content. Symmetrical smile. Patient's finger-nose testing was normal bilaterally MUSCULOSKELETAL: Normal extremities with adequate strength and full range of motion. No lower extremity swelling or edema. No calf tenderness. LYMPHATICS: No significant lymphadenopathy is noted PSYCHIATRIC: Patient was very anxious upon arrival. Limitations: no limitations Course Vital Signs 03/04/23 03/04/23 09:56 10:11 Temperature 97 F L Pulse Rate 90 Respiratory 22 28 H Rate Blood Pressure 145/90 O2 Sat by Pulse 100 98 Oximetry Medical Decision Making - Medical Decision Making EKG was interpreted by myself. EKG shows a sinus rhythm at 83 bpm SC interval is 166 dresses 98 QT interval 372 QTC is 411. Patient's EKG shows no ST segment elevation or depression Was pt. sent in by a medical professional or institution (, PA, PROCESS MANUFACTURING ENGINEER, urgent care, hospital, or fdc...) When possible be specific @ -No Did you speak to anyone other than the patient for history (EMS, parent, family, police, friend...)? What history was obtained from this source @ -No Did you review nursing and triage notes (agree or disagree)? Why? @ -I reviewed and agree with nursing and triage notes Were old charts reviewed (outside hosp., previous admission, EMS record, old EKG, old radiological studies, urgent care reports/EKG's, fdc records)? Report findings @ -I reviewed prior charts in prior lab work prior radiological studies on this patient Differential Diagnosis (chest pain, altered mental status, abdominal pain women, abdominal pain men, vaginal bleeding, weakness, fever, dyspnea, syncope, headache, dizziness, GI bleed, back pain, seizure, CVA, palpatations, mental health, musculoskeletal)? @ -Differential Dizziness: Benign paroxysmal positional Vertigo, Menieres disease, otitis media, acoustic neuroma, vertebrobasilar insufficiency, cerebellar stroke, encephalitis, hypovolemic, arrhythmia, coronary artery syndrome, anemia, this is not meant to be an all-inclusive list EKG interpreted by me (3pts min.). @ -As above X-rays interpreted by me (1pt min.). @ -No acute abnormality CT interpreted by me (1pt min.). @ -CT of the brain shows no acute abnormality U/S interpreted by me (1pt. min.). @ -None done What testing was considered but not performed or refused? (CT, X-rays, U/S, labs)? Why? @ -None What meds were considered but not given or refused? Why? @ -None Did you discuss the management of the patient with other professionals (professionals i.e. , PA, PROCESS MANUFACTURING ENGINEER, lab, RT, psych nurse, health care social worker, warehouse hand, teacher, staff air defense officer, field case manager)? Give summary @ -No Was smoking cessation discussed for >3mins.? @ -No Was critical care preformed (if so, how long)? @ -No Were there social determinants of health that impacted care today? How? (Homelessness, low income, unemployed, alcoholism, drug addiction, transportation, low edu. Level, literacy, decrease access to med. care, [facility], rehab)? @ -No Was there de-escalation of care discussed even if they declined (Discuss DNR or withdrawal of care, Hospice)? DNR status @ -No What co-morbidities impacted this encounter? (DM, HTN, Smoking, COPD, CAD, Cancer, CVA, ARF, Chemo, Hep., AIDS, mental health diagnosis, sleep apnea, morbid obesity)? @ -None Was patient admitted / discharged? Hospital course, mention meds given and route, prescriptions, significant lab abnormalities, going to OR and other pertinent info. @ -She was a very poor historian in Stating she couldn't explain how she was feeling but didn't feel right. I went back into the room to reevaluate the patient 30 and she was sound asleep. I woke the patient up and she immediately said I missed work I can't leave because he missed work. I asked the patient how she was feeling and she stated I just don't feel like myself but she was unable to describe how she was feeling. Patient did not appear to be dizzy patient had no complaints of pain. Undiagnosed new problem with uncertain prognosis? @ -No Drug Therapy requiring intensive monitoring for toxicity (Heparin, Nitro, Insulin, Cardizem)? @ -No Were any procedures done? @ -No Diagnosis/symptom? @ -Dizziness Acute, or Chronic, or Acute on Chronic? @ -Acute Uncomplicated (without systemic symptoms) or Complicated (systemic symptoms)? @ -Complicated Side effects of treatment? @ -No Exacerbation, Progression, or Severe Exacerbation? @ -No Poses a threat to life or bodily function? How? (Chest pain, [place], [place], pneumonia, PE, COPD, DKA, ARF, appy, cholecystitis, CVA, Diverticulitis, Homicidal, S uicidal, threat to staff... and all critical care pts) @ -No - Lab Data Result diagrams: 03/04/23 10:16 03/04/23 10:16 Lab Results 03/04/23 03/04/23 03/04/23 Range/Units 10:08 10:16 10:16 WBC 7.7 (3.8-10.6) k/uL RBC 4.96 (3.80-5.40) m/uL Hgb 15.6 (11.4-16.0) gm/dL Hct 46.2 H (34.0-46.0) % MCV 93.2 (80.0-100.0) fL MCH 31.5 (25.0-35.0) pg MCHC 33.8 (31.0-37.0) g/dL RDW 12.9 (11.5-15.5) % Plt Count 217 (150-450) k/uL MPV 9.0 Neutrophils % 83 % Lymphocytes % 11 % Monocytes % 4 % Eosinophils % 0 % Basophils % 0 % Neutrophils # 6.3 (1.3-7.7) k/uL Lymphocytes # 0.9 L (1.0-4.8) k/uL Monocytes # 0.3 (0-1.0) k/uL Eosinophils # 0.0 (0-0.7) k/uL Basophils # 0.0 (0-0.2) k/uL Sodium 136 L (137-145) mmol/L Potassium 4.8 (3.5-5.1) mmol/L Chloride 102 (98-107) mmol/L Carbon Dioxide 22 (22-30) mmol/L Anion Gap 12 mmol/L BUN 19 H (7-17) mg/dL Creatinine 0.50 L (0.52-1.04) mg/dL Est GFR (CKD-EPI)AfAm >90 (>60 ml/min/1.73 sqM) Est GFR (CKD-EPI)NonAf >90 (>60 ml/min/1.73 sqM) Glucose 151 H (74-99) mg/dL POC Glucose (mg/dL) 149 H (70-110) mg/dL POC Glu Clinical Social Work Therapist ID Radha Stuart Calcium 10.2 (8.4-10.2) mg/dL Magnesium 1.7 (1.6-2.3) mg/dL Total Bilirubin 0.9 (0.2-1.3) mg/dL AST 44 H (14-36) U/L ALT 30 (4-34) U/L Alkaline Phosphatase 57 (38-126) U/L Troponin I (0.000-0.034) ng/mL Total Protein 8.3 H (6.3-8.2) g/dL Albumin 4.5 (3.5-5.0) g/dL 03/04/23 Range/Units 10:16 WBC (3.8-10.6) k/uL RBC (3.80-5.40) m/uL Hgb (11.4-16.0) gm/dL Hct (34.0-46.0) % MCV (80.0-100.0) fL MCH (25.0-35.0) pg MCHC (31.0-37.0) g/dL RDW (11.5-15.5) % Plt Count (150-450) k/uL MPV Neutrophils % % Lymphocytes % % Monocytes % % Eosinophils % % Basophils % % Neutrophils # (1.3-7.7) k/uL Lymphocytes # (1.0-4.8) k/uL Monocytes # (0-1.0) k/uL Eosinophils # (0-0.7) k/uL Basophils # (0-0.2) k/uL Sodium (137-145) mmol/L Potassium (3.5-5.1) mmol/L Chloride (98-107) mmol/L Carbon Dioxide (22-30) mmol/L Anion Gap mmol/L BUN (7-17) mg/dL Creatinine (0.52-1.04) mg/dL Est GFR (CKD-EPI)AfAm (>60 ml/min/1.73 sqM) Est GFR (CKD-EPI)NonAf (>60 ml/min/1.73 sqM) Glucose (74-99) mg/dL POC Glucose (mg/dL) (70-110) mg/dL POC Glu Clinical Social Work Therapist ID Calcium (8.4-10.2) mg/dL Magnesium (1.6-2.3) mg/dL Total Bilirubin (0.2-1.3) mg/dL AST (14-36) U/L ALT (4-34) U/L Alkaline Phosphatase (38-126) U/L Troponin I <0.012 (0.000-0.034) ng/mL Total Protein (6.3-8.2) g/dL Albumin (3.5-5.0) g/dL Disposition Clinical Impression: Dizziness Disposition: HOME SELF-CARE Condition: Good Is patient prescribed a controlled substance at d/c from ED?: No Referrals: None,Stated [REFERRING] - 1-2 days Time of Disposition: 11:34
[2023-03-04 10:46] LABS: Basophils % (A) 0 %; Eosinophils % (A) 0 %; HCT 46.2 % (34.0-46.0); HGB 15.6 gm/dL (11.4-16.0); Lymphocytes # (A) 0.9 k/uL (1.0-4.8); Lymphocytes % (A) 11 %; MCH 31.5 pg (25.0-35.0); MCHC 33.8 g/dL (31.0-37.0); MCV 93.2 fL (80.0-100.0); Monocytes # (A) 0.3 k/uL (0-1.0); Monocytes % (A) 4 %; Neutrophils # (A) 6.3 k/uL (1.3-7.7); Neutrophils % (A) 83 %; Platelet Count 217 k/uL (150-450); RBC 4.96 m/uL (3.80-5.40); RDW 12.9 % (11.5-15.5); WBC 7.7 k/uL (3.8-10.6)
--- NOTE | 2023-03-04 10:50 | XR ---
EXAMINATION TYPE: XR chest 2V DATE OF EXAM: 03/04/2023 10:34 AM CLINICAL INDICATION:Female, 47 years old with history of Chest Pain; [facility] COMPARISON: Chest radiographs from 06/21/2021 TECHNIQUE: XR chest 2V Frontal and lateral views of the chest. FINDINGS: Lungs/Pleura: Low lung volumes are present. There is no evidence of pleural effusion, focal consolida tion, or pneumothorax. Pulmonary vascularity: Unremarkable. Heart/mediastinum: Cardiomediastinal silhouette is unremarkable. Musculoskeletal: No acute osseous pathology. IMPRESSION: Low lung volumes, No acute cardiopulmonary disease/process.
--- NOTE | 2023-03-04 10:51 | CT ---
EXAMINATION TYPE: CT brain wo con CT DLP: 1128.4 mGycm, Automated exposure control for dose reduction was used. DATE OF EXAM: 03/04/2023 10:45 AM COMPARISON: 06/16/2019 . CLINICAL INDICATION:Female, 47 years old with history of Dizziness, dizziness TECHNIQUE: Brain: Axial CT images of the brain were obtained with coronal and sagittal reformats created and rev iewed. Contrast used: None. Oral contrast used: None. FINDINGS: Brain: Extra-axial spaces: No abnormal extra-axial fluid collections. Ventricular system: Within normal limits Cerebral parenchyma: No acute intraparenchymal hemorrhage or mass effect. The palumbo-white junction is well differentiated. Cerebellum: Unremarkable. Mass effect: No evidence of midline shift. Intracranial vasculature: unremarkable Soft tissues: Normal. Calvarium/osseous structures: No depressed skull fracture. Paranasal sinuses and mastoid air cells: Mild scattered paranasal sinus disease. Visualized orbits: Bilateral aphakia IMPRESSION: No acute intracranial process.
[2023-03-04 10:52] LABS: ALT 30 U/L (4-34); AST 44 U/L (14-36); African American GFR (CKD) >90 (>60 ml/min/1.73 sqM); Albumin 4.5 g/dL (3.5-5.0); Alkaline Phosphatase 57 U/L (38-126); Anion Gap 12 mmol/L; Blood Urea Nitrogen 19 mg/dL (7-17); Calcium 10.2 mg/dL (8.4-10.2); Carbon Dioxide 22 mmol/L (22-30); Chloride 102 mmol/L (98-107); Glucose 151 mg/dL (74-99); Magnesium 1.7 mg/dL (1.6-2.3); Non-African American GFR(CKD) >90 (>60 ml/min/1.73 sqM); Sodium 136 mmol/L (137-145); Total Bilirubin 0.9 mg/dL (0.2-1.3); Total Protein 8.3 g/dL (6.3-8.2)
[2023-03-04 11:05] LABS: Potassium 4.8 mmol/L (3.5-5.1)
[2023-03-04 13:14] VITALS: BP 138/78; PULSE 80; RESP 20; TEMP 97.2
== END 2023-03-04 13:06 | disposition home or self-care (01) ==
LOC: EC 09:55
DX: R42 Dizziness and giddiness (principal); E11.9 Type 2 diabetes mellitus without complications; I10 Essential (primary) hypertension; F41.9 Anxiety disorder, unspecified; Z79.84 Long term (current) use of oral hypoglycemic drugs; Z79.899 Other long term (current) drug therapy; Z90.49 Acquired absence of other specified parts of digestive tract; Z86.73 Personal history of transient ischemic attack (TIA), and cerebral infarction without residual deficits; Z88.0 Allergy status to penicillin; Z88.1 Allergy status to other antibiotic agents; Z88.2 Allergy status to sulfonamides; Z88.8 Allergy status to other drugs, medicaments and biological substances; Z91.09 Other allergy status, other than to drugs and biological substances; Z91.018 Allergy to other foods
CPT/HCPCS: 36415; 93005; 80053; 83735; 84484; 85025; 71046; 70450; 99285; 96374; 96375 ×2; J2060; J3360; J2405

== ENCOUNTER → 2023-07-05 | Outpatient (CLI) | payer OTHER ==
[2023-07-05 16:31] LABS: ALT 32 U/L (8-44); AST 22 U/L (13-35); Albumin/Globulin Ratio 1.38 Ratio (1.60-3.17); Alkaline Phosphatase 59 U/L (41-126); BUN/Creat Ratio 19.62 Ratio (12.00-20.00); Blood Urea Nitrogen 15.7 mg/dL (9.0-27.0); Carbon Dioxide 25.9 mmol/L (21.6-31.8); Chloride 103 mmol/L (96-109); Globulin 2.9 g/dL (1.6-3.3); Glucose 138 mg/dL (70-110); LDL Cholesterol,Calculated 62.1 mg/dL (0.0-131.0); Potassium 4.9 mmol/L (3.5-5.5); Sodium 139 mmol/L (135-145); Total Bilirubin 0.4 mg/dL (0.3-1.2); Total Protein 6.9 g/dL (6.2-8.2); VLDL Calculation 18.22 mg/dL (5.00-40.00)
[2023-07-05 16:47] LABS: Basophils # (A) 0.05 X 10*3/uL (0.00-0.10); Basophils % (A) 1.3 %; Eosinophils # (A) 0 X 10*3/uL (0.04-0.35); Eosinophils % (A) 0 %; HCT 42.9 % (37.2-46.3); HGB 13.7 g/dL (12.0-15.0); Lymphocytes # (A) 1.19 X 10*3/uL (0.90-5.00); Lymphocytes % (A) 31.6 %; MCHC 31.9 g/dL (32.0-37.0); MCV 97.1 FL (80.0-97.0); Monocytes # (A) 0.31 X 10*3/uL (0.20-1.00); Monocytes % (A) 8.2 %; NRBC Per 100 WBC 0 X 10*3/uL (0.00-0.01); Neutrophils # (A) 2.21 X 10*3/uL (1.80-7.70); Neutrophils % (A) 58.6 %; Platelet Count 232 X 10*3/uL (140-440); RBC 4.42 X 10*6/uL (4.10-5.20); RDW 13.5 % (11.5-14.5); WBC 3.77 X 10*3/uL (4.50-10.00)
== END | disposition home or self-care (01) ==
LOC: LABWHC1 08:58
PROVIDERS: ATTEND Family Medicine
DX: E11.9 Type 2 diabetes mellitus without complications (principal); E66.9 Obesity, unspecified
CPT/HCPCS: 36415; 80053; 80061; 83036; 84443; 85025

== ENCOUNTER → 2023-08-24 | Outpatient (CLI) | payer OTHER ==
[2023-08-24 15:59] LABS: Basophils # (A) 0.04 X 10*3/uL (0.00-0.10); Basophils % (A) 0.5 %; Eosinophils # (A) 0 X 10*3/uL (0.04-0.35); Eosinophils % (A) 0 %; HCT 43.8 % (37.2-46.3); HGB 14.1 g/dL (12.0-15.0); Lymphocytes # (A) 1.67 X 10*3/uL (0.90-5.00); Lymphocytes % (A) 22.4 %; MCH 30.5 pg (27.0-32.0); MCHC 32.2 g/dL (32.0-37.0); MCV 94.6 FL (80.0-97.0); Mean Platelet Volume 11.3 FL (9.5-12.2); Monocytes # (A) 0.71 X 10*3/uL (0.20-1.00); Monocytes % (A) 9.5 %; NRBC Per 100 WBC 0 X 10*3/uL (0.00-0.01); Neutrophils # (A) 5.02 X 10*3/uL (1.80-7.70); Neutrophils % (A) 67.3 %; Platelet Count 268 X 10*3/uL (140-440); RBC 4.63 X 10*6/uL (4.10-5.20); RDW 13.3 % (11.5-14.5); WBC 7.46 X 10*3/uL (4.50-10.00)
== END | disposition home or self-care (01) ==
LOC: LABWHC1 12:22
PROVIDERS: ATTEND Family Medicine
DX: D45 Polycythemia vera (principal); R11.10 Vomiting, unspecified; R19.7 Diarrhea, unspecified
CPT/HCPCS: 36415; 84597; 85025

== ENCOUNTER 2024-03-01 20:16 | Emergency (ER) | payer OTHER ==
--- NOTE | 2024-03-01 20:42 | ED ---
General Adult HPI - General Stated complaint: Constipated Time Seen by Provider: 03/01/24 20:41 Source: patient Mode of arrival: ambulatory Limitations: no limitations - History of Present Illness Initial comments: 48-year-old female presenting with chief complaint of constipation. Reports that her last normal bowel movement was about 12 days ago. She had a very small bowel movement earlier today, did not feel much relief. She admits to abdominal pain, primarily after eating. No vomiting. No fevers. No urinary symptoms. She has tried enemas including 1 at [facility], magnesium citrate, and stool softeners. - Related Data Home Medications Medication Instructions Recorded Confirmed valACYclovir HCL [Valacyclovir] 1,000 mg PO DAILY 11/21/19 01/16/23 Sennosides/Docusate Sodium 1 tab PO DAILY 10/13/20 01/16/23 [Senna-S 8.6-50 mg Tablet] Baclofen 10 mg PO BID PRN 02/10/22 01/16/23 Dulaglutide [Trulicity] 0.75 mg SQ MO 02/10/22 01/16/23 Morphine Sulfate ER [Ms Contin] 15 mg PO DAILY 02/10/22 01/16/23 Pioglitazone [Actos] 30 mg PO DAILY 02/10/22 01/16/23 Rosuvastatin [Crestor] 10 mg PO DAILY 02/10/22 01/16/23 lisinopriL [Zestril] 5 mg PO DAILY 02/10/22 01/16/23 ALPRAZolam [Xanax] 1 mg PO TID 07/28/22 01/16/23 OLANZapine [ZyPREXA] 5 mg PO DAILY 07/28/22 01/16/23 oxyCODONE HCL/ACETAMINOPHEN 1 tab PO QID PRN 08/08/22 01/16/23 [Percocet 10-325 mg] Nystatin 100,000 Unit/gm Powd 1 applic TOPICAL BID 01/16/23 01/16/23 [Mycostatin Powder] glipiZIDE [Glucotrol] 5 mg PO BID 01/16/23 01/16/23 Allergies Allergy/AdvReac Type Severity Reaction Status Date / Time adhesive tape Allergy Severe Rash/Hives Verified 03/01/24 20:43 cortisone [Cortisone] Allergy Severe Anaphylaxis Verified 03/01/24 20:43 diphenhydramine HCl Allergy Severe Anaphylaxis Verified 03/01/24 20:43 [From Benadryl] Penicillins Allergy Severe Anaphylaxis Verified 03/01/24 20:43 Sulfa (Sulfonamide Allergy Intermediate Rash/Hives Verified 03/01/24 20:43 Antibiotics) Cephalosporins Allergy Mild Rash/Hives Verified 03/01/24 20:43 doxycycline Allergy Mild Rash/Hives Verified 03/01/24 20:43 Quinolones Allergy Mild Rash/Hives Verified 03/01/24 20:43 [place] And Derivatives Allergy Rash/Hives Verified 03/01/24 20:43 [[place]] Corticosteroids Allergy Rash/Hives/Shortness Verified 03/01/24 20:43 (Glucocorticoids) of Breath Iodine and Iodide Containing Allergy Unknown Verified 03/01/24 20:43 Produc nitrofurantoin Allergy Itching/hotness/flushed Verified 03/01/24 20:43 [From Macrobid] face Review of Systems ROS Statement: Those systems with pertinent positive or pertinent negative responses have been documented in the HPI. ROS Other: All systems not noted in ROS Statement are negative. 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 pain, frequent nausea History of Any Multi-Drug Resistant Organisms: MRSA Date of last positivie culture/infection: 07/04/01 MDRO Source:: gallbladder Past Surgical History: Cholecystectomy, Hernia Repair Additional Past Surgical History / Comment(s): CATARACT SURGERY, kidney stents ; Colonoscopies, ventral hernia 08/02/17, recent EGD Past Anesthesia/Blood Transfusion Reactions: No Reported Reaction Past Psychological History: Anxiety Smoking Status: Never smoker Past Alcohol Use History: None Reported Past Drug Use History: None Reported - Past Family History Father Family Medical History: No Reported History Mother Family Medical History: Cancer Additional Family Medical History / Comment(s): breast cancer (axilla location) dx at age 45. Maternal aunt dx with breast cancer @50, at age 54 from breast cancer Sister(s) Family Medical History: Cancer Additional Family Medical History / Comment(s): at age 8 from Leukemia, General Exam - General Exam Comments Initial Comments: Visual Physical Exam Vital signs reviewed General: Well-appearing, nontoxic, no acute distress. Head: Normocephalic, atraumatic Eyes: PERRLA, EOMI ENT: Airway patent Chest: Nonlabored breathing Skin: No visual rash, normal skin tone Neuro: Alert and oriented 3 Musculoskeletal: No gross abnormalities Limitations: no limitations General appearance: alert, in no apparent distress Head exam: Present: atraumatic, normocephalic, normal inspection Eye exam: Present: normal appearance, EOMI Neck exam: Present: normal inspection. Absent: meningismus Respiratory exam: Absent: respiratory distress Cardiovascular Exam: Present: regular rate GI/Abdominal exam: Present: soft, tenderness (Nonlocalized). Absent: distended, guarding, rebound, rigid Neurological exam: Present: alert, oriented X3 Psychiatric exam: Present: normal affect, normal mood Skin exam: Present: warm, dry Course Vital Signs 03/01/24 03/02/24 20:39 02:54 Temperature 97.4 F L Pulse Rate 87 84 Respiratory 16 18 Rate Blood Pressure 134/80 126/82 O2 Sat by Pulse 99 99 Oximetry Medical Decision Making - Medical Decision Making I performed the quick note portion of this visit, electronically signed Marti Villegas PA-C Was pt. sent in by a medical professional or institution (SUSIE Marc, DATA ANALYSIS ASSISTANT, urgent care, hospital, or long term...) When possible be specific @ -No Did you speak to anyone other than the patient for history (EMS, parent, family, police, friend...)? What history was obtained from this source @ -No Did you review nursing and triage notes (agree or disagree)? Why? @ -I reviewed and agree with nursing and triage notes Were old charts reviewed (outside hosp., previous admission, EMS record, old EKG, old radiological studies, urgent care reports/EKG's, long term records)? Report findings @ -No old charts were reviewed Differential Diagnosis (chest pain, altered mental status, abdominal pain women, abdominal pain men, vaginal bleeding, weakness, fever, dyspnea, syncope, headache, dizziness, GI bleed, back pain, seizure, CVA, palpatations, mental health, musculoskeletal)? @ -MDM Differential Abdominal Pain Women: Appendicitis, Cholecystitis, diverticulosis, ischemic bowel, pancreatitis, hepatitis, UTI, gastroenteritis, AAA, incarcerated hernia, bowel obstruction, constipation, inflammatory bowel, hepatitis, peptic ulcer disease, splenic infarction, perforated viscus, vulvitis, ovarian torsion, PID, kidney stone, placenta abruption... This is not meant to be an all-inclusive list EKG interpreted by me (3pts min.). @ -As above X-rays interpreted by me (1pt min.). @ -KUB x-ray shows nonspecific abdomen. No suspicious changes for constipation or fecal retention CT interpreted by me (1pt min.). @ -CT shows no bowel obstruction. No suspicious new or acute findings identified. U/S interpreted by me (1pt. min.). @ -None done What testing was considered but not performed or refused? (CT, X-rays, U/S, labs)? Why? @ -None What meds were considered but not given or refused? Why? @ -None Did you discuss the management of the patient with other professionals (professionals i.e. , PA, DATA ANALYSIS ASSISTANT, lab, RT, psych nurse, social media designer, chief learning officer, teacher, chief learning officer, residential case manager)? Give summary @ -No Was smoking cessation discussed for >3mins.? @ -No Was critical care preformed (if so, how long)? @ -No Were there social determinants of health that impacted care today? How? (Homelessness, low income, unemployed, alcoholism, drug addiction, transportation, low edu. Level, literacy, decrease access to med. care, group home, rehab)? @ -No Was there de-escalation of care discussed even if they declined (Discuss DNR or withdrawal of care, Hospice)? DNR status @ -No What co-morbidities impacted this encounter? (DM, HTN, Smoking, COPD, CAD, Cancer, CVA, ARF, Chemo, Hep., AIDS, mental health diagnosis, sleep apnea, morbid obesity)? @ -None Was patient admitted / discharged? Hospital course, mention meds given and route, prescriptions, significant lab abnormalities, going to OR and other pertinent info. @ -48-year-old female presenting with chief complaint of constipation. Admits to diffuse abdominal discomfort. Workup was initiated by triage and patient was later brought back to a room and evaluated by myself. KUB x-ray shows nonspecific abdomen. Lab work requires no action. CT shows no acute process. No large degree of fecal retention. Patient was offered an enema states that leoncio causey has done the before and it did not work. She is encouraged to try another course of magnesium citrate and is provided with sample for home. Educated on today's findings and supportive management. Discharged. Follow-up with PCP. Report back to ER with any new or worsening symptoms. Discussed return parameters and answered all questions. Patient conveyed verbal understanding and agreed to the plan. I discussed this case in detail with my attending Dr. Hernandez Undiagnosed new problem with uncertain prognosis? @ -No Drug Therapy requiring intensive monitoring for toxicity (Heparin, Nitro, Insulin, Cardizem)? @ -No Were any procedures done? @ -No Diagnosis/symptom? @ -Constipation Acute, or Chronic, or Acute on Chronic? @ -Acute Uncomplicated (without systemic symptoms) or Complicated (systemic symptoms)? @ -Uncomplicated Side effects of treatment? @ -No Exacerbation, Progression, or Severe Exacerbation? @ -No Poses a threat to life or bodily function? How? (Chest pain, [place], MA, pneumonia, PE, COPD, DKA, ARF, appy, cholecystitis, CVA, Diverticulitis, Homicidal, Suicidal, threat to staff... and all critical care pts) @ -Unlikely - Lab Data Result diagrams: 03/02/24 00:55 03/02/24 00:55 Lab Results 03/02/24 03/02/24 03/02/24 Range/Units 00:55 00:55 00:55 WBC 6.6 (3.8-10.6) k/uL RBC 4.44 (3.80-5.40) m/uL Hgb 13.6 (11.4-16.0) gm/dL Hct 42.5 (34.0-46.0) % MCV 95.6 (80.0-100.0) fL MCH 30.7 (25.0-35.0) pg MCHC 32.1 (31.0-37.0) g/dL RDW 12.7 (11.5-15.5) % Plt Count 211 (150-450) k/uL MPV 8.2 Neutrophils % 59 % Lymphocytes % 29 % Monocytes % 7 % Eosinophils % 1 % Basophils % 1 % Neutrophils # 3.9 (1.3-7.7) k/uL Lymphocytes # 1.9 (1.0-4.8) k/uL Monocytes # 0.5 (0-1.0) k/uL Eosinophils # 0.0 (0-0.7) k/uL Basophils # 0.1 (0-0.2) k/uL Sodium 138 (137-145) mmol/L Potassium 4.1 (3.5-5.1) mmol/L Chloride 107 (98-107) mmol/L Carbon Dioxide 25 (22-30) mmol/L Anion Gap 6 mmol/L BUN 23 H (7-17) mg/dL Creatinine 0.73 (0.52-1.04) mg/dL Est GFR (CKD-EPI)AfAm >90 (>60 ml/min/1.73 sqM) Est GFR (CKD-EPI)NonAf >90 (>60 ml/min/1.73 sqM) Glucose 99 (74-99) mg/dL Plasma Lactic Acid Oliverio 0.8 (0.7-2.0) mmol/L Calcium 9.7 (8.4-10.2) mg/dL Total Bilirubin 0.8 (0.2-1.3) mg/dL AST 32 (14-36) U/L ALT 37 H (4-34) U/L Alkaline Phosphatase 82 (38-126) U/L Total Protein 7.6 (6.3-8.2) g/dL Albumin 4.3 (3.5-5.0) g/dL Amylase 40 (30-110) U/L Lipase 101 (23-300) U/L Urine Color Urine Appearance (Clear) Urine pH (5.0-8.0) Ur Specific [place] (1.001-1.035) Urine Protein (Negative) Urine Glucose (UA) (Negative) Urine Ketones (Negative) Urine Blood (Negative) Urine Nitrite (Negative) Urine Bilirubin (Negative) Urine Urobilinogen (<2.0) mg/dL Ur Leukocyte Esterase (Negative) Urine RBC (0-5) /hpf Urine WBC (0-5) /hpf Ur Squamous Epith Cells (0-4) /hpf Urine Bacteria (None) /hpf Urine Mucus (None) /hpf 03/02/24 Range/Units 01:23 WBC (3.8-10.6) k/uL RBC (3.80-5.40) m/uL Hgb (11.4-16.0) gm/dL Hct (34.0-46.0) % MCV (80.0-100.0) fL MCH (25.0-35.0) pg MCHC (31.0-37.0) g/dL RDW (11.5-15.5) % Plt Count (150-450) k/uL MPV Neutrophils % % Lymphocytes % % Monocytes % % Eosinophils % % Basophils % % Neutrophils # (1.3-7.7) k/uL Lymphocytes # (1.0-4.8) k/uL Monocytes # (0-1.0) k/uL Eosinophils # (0-0.7) k/uL Basophils # (0-0.2) k/uL Sodium (137-145) mmol/L Potassium (3.5-5.1) mmol/L Chloride (98-107) mmol/L Carbon Dioxide (22-30) mmol/L Anion Gap mmol/L BUN (7-17) mg/dL Creatinine (0.52-1.04) mg/dL Est GFR (CKD-EPI)AfAm (>60 ml/min/1.73 sqM) Est GFR (CKD-EPI)NonAf (>60 ml/min/1.73 sqM) Glucose (74-99) mg/dL Plasma Lactic Acid Oliver[place] (0.7-2.0) mmol/L Calcium (8.4-10.2) mg/dL Total Bilirubin (0.2-1.3) mg/dL AST (14-36) U/L ALT (4-34) U/L Alkaline Phosphatase (38-126) U/L Total Protein (6.3-8.2) g/dL Albumin (3.5-5.0) g/dL Amylase (30-110) U/L Lipase (23-300) U/L Urine Color Yellow Urine Appearance Cloudy H (Clear) Urine pH 5.5 (5.0-8.0) Ur Specific [place] 1.032 (1.001-1.035) Urine Protein 2+ H (Negative) Urine Glucose (UA) Negative (Negative) Urine Ketones 1+ H (Negative) Urine Blood Negative (Negative) Urine Nitrite Negative (Negative) Urine Bilirubin Negative (Negative) Urine Urobilinogen <2.0 (<2.0) mg/dL Ur Leukocyte Esterase Negative (Negative) Urine RBC 2 (0-5) /hpf Urine WBC 7 H (0-5) /hpf Ur Squamous Epith Cells 4 (0-4) /hpf Urine Bacteria Occasional H (None) /hpf Urine Mucus Many H (None) /hpf Disposition Clinical Impression: Constipation Disposition: HOME SELF-CARE Condition: Good Instructions (If sedation given, give patient instructions): Constipation (ED), High Fiber Diet (ED) Additional Instructions: Follow-up with PCP. Report back to ER with any new or worsening symptoms. Take magnesium citrate at home, expect to be home for several hours afterwards. Is patient prescribed a controlled substance at d/c from ED?: No Referrals: Marleny Farrell DO [Primary Care Provider] - 1-2 days Time of Disposition: 02:23
[2024-03-01 20:43] VITALS: TEMP 97.4
--- NOTE | 2024-03-01 21:25 | XR ---
EXAMINATION TYPE: XR KUB DATE OF EXAM: 03/01/2024 COMPARISON: 02/15/2021 INDICATION: Constipation TECHNIQUE: Single view abdomen upright view FINDINGS: There is a normal bowel gas pattern. No free air is under the diaphragm. No significant fecal debris is evident. No suspicious air-fluid levels or differential air-fluid levels are present. Psoas margins are normal. No organomegaly is present. IMPRESSION: 1. Nonspecific abdomen. 2. No suspicious changes for constipation or fecal retention [facility], Workstation: [facility], 03/01/2024 9:23 PM
[2024-03-02] MEDS: SODIUM CHLORIDE 0.9% 1,000 ML IV STA (00:58)
[2024-03-02] MEDS: KETOROLAC 15 MG/ML 1 ML VIAL IVP STA (00:58)
[2024-03-02] MEDS: NA PHOS,M-B/NA PHOS,DI-BA 133 ML ENEMA RECTAL STA (00:59)
[2024-03-02 01:02] LABS: Basophils # (A) 0.1 k/uL (0-0.2); Basophils % (A) 1 %; Eosinophils % (A) 1 %; HCT 42.5 % (34.0-46.0); HGB 13.6 gm/dL (11.4-16.0); Lymphocytes # (A) 1.9 k/uL (1.0-4.8); Lymphocytes % (A) 29 %; MCH 30.7 pg (25.0-35.0); MCHC 32.1 g/dL (31.0-37.0); MCV 95.6 fL (80.0-100.0); Mean Platelet Volume 8.2; Monocytes # (A) 0.5 k/uL (0-1.0); Monocytes % (A) 7 %; Neutrophils # (A) 3.9 k/uL (1.3-7.7); Neutrophils % (A) 59 %; Platelet Count 211 k/uL (150-450); RBC 4.44 m/uL (3.80-5.40); RDW 12.7 % (11.5-15.5); WBC 6.6 k/uL (3.8-10.6)
[2024-03-02 01:12] LABS: ALT 37 U/L (4-34); AST 32 U/L (14-36); African American GFR (CKD) >90 (>60 ml/min/1.73 sqM); Albumin 4.3 g/dL (3.5-5.0); Alkaline Phosphatase 82 U/L (38-126); Amylase 40 U/L (30-110); Anion Gap 6 mmol/L; Blood Urea Nitrogen 23 mg/dL (7-17); Calcium 9.7 mg/dL (8.4-10.2); Carbon Dioxide 25 mmol/L (22-30); Chloride 107 mmol/L (98-107); Glucose 99 mg/dL (74-99); Lipase 101 U/L (23-300); Non-African American GFR(CKD) >90 (>60 ml/min/1.73 sqM); Potassium 4.1 mmol/L (3.5-5.1); Sodium 138 mmol/L (137-145); Total Bilirubin 0.8 mg/dL (0.2-1.3); Total Protein 7.6 g/dL (6.3-8.2)
[2024-03-02 01:41] LABS: Appearance,Urine Cloudy (Clear); Bacteria,Urine Occasional /hpf; Bilirubin,Urine Negative (Negative); Blood,Urine Negative (Negative); Color,Urine Yellow; Glucose,Urine (UA) Negative (Negative); Ketones,Urine 1+ (Negative); Leukocyte Esterase,Urine Negative (Negative); Mucus,Urine Many /hpf; Nitrite,Urine Negative (Negative); PH, Urine 5.5 (5.0-8.0); Protein,Urine 2+ (Negative); RBC,Urine 2 /hpf (0-5); Specific Gravity,Urine 1.032 (1.001-1.035); Squamous Epithelial Cell,Urine 4 /hpf (0-4); Urobilinogen,Urine <2.0 mg/dL (<2.0); WBC,Urine 7 /hpf (0-5)
--- NOTE | 2024-03-02 01:55 | CT ---
EXAMINATION TYPE: CT abdomen pelvis wo con DATE OF EXAM: 03/02/2024 HISTORY: Pt arrives in [facility] today for constipation. Last BM 12 days ago. pt unable to pass gas and st ates she has large amount of discomfort and nausea if she eats or drinks CT DLP: 1946.7 mGycm. Automated Exposure Control for Dose Reduction was Utilized. TECHNIQUE: CT scan of the abdomen and pelvis is performed without oral or IV contrast. COMPARISON: Prior CT August 08, 2022 FINDINGS: Within the limitations of a non-contrast study, the following observations are made. LUNG BASES: No significant abnormality is appreciated. LIVER/GB: Cholecystectomy clips are redemonstrated. PANCREAS: No significant abnormality is seen. SPLEEN: No significant abnormality is seen. ADRENALS: Stable 3.5 x 2.2 cm left adrenal mass axial image 61. KIDNEYS: No renal stones or hydronephrosis is seen bilaterally. BOWEL: Sigmoid colonic diverticula. No CT evidence for acute diverticulitis. No abnormal small or lar ge bowel dilatation. Normal-appearing appendix redemonstrated. No significant colonic fecal prominenc e. GENITAL ORGANS: Anteverted uterus projects to right of midline. LYMPH NODES: No greater than 1cm abdominal or pelvic lymph nodes are appreciated. OSSEOUS STRUCTURES: Moderate to severe disc space narrowing at lumbosacral junction redemonstrated. OTHER: No significant additional abnormality is seen. IMPRESSION: No bowel obstruction. No suspicious new or acute findings identified. [facility], , 03/02/2024 1:52 AM
[2024-03-02] MEDS: MAGNESIUM CITRATE 296 ML BOTTLE PO ONE (02:54)
[2024-03-02 02:56] VITALS: BP 126/82; PULSE 84; RESP 18
== END 2024-03-02 02:56 | disposition home or self-care (01) ==
LOC: EC 20:16
CPT/HCPCS: 36415; 74018; 74176; 80053; 81001; 82150; 83605; 83690; 85025; 96361; 96374; 99284